=== PATIENT | female | born 1935 | race Caucasian/White ===

== ENCOUNTER 2018-08-30 01:48 | Outpatient (CLI) | payer MEDICARE, SELFPAY ==
[2018-08-30 11:07] LABS: Anion Gap 6.6 mmol/L (3-11); BUN 14 mg/dL (7-18); CO2 30.4 mmol/L (21.0-32.0); CREATININE 0.93 mg/dL (0.55-1.02); Calcium 8.9 mg/dL (8.5-10.1); Chloride 105 mmol/L (98-107); Cholesterol 219 mg/dL (50-200); Estimated GFR 58.01 (mL/min/1.73m2); Glucose 111 mg/dL (70-100); HDL Cholesterol 52 mg/dL (40-60); LDL CHOLESTEROL 142 mg/dL (<100); Potassium 4.3 mmol/L (3.5-5.1); Sodium 142 mmol/L (136-145); Triglyceride 98 mg/dL (30-150)
== END 2018-08-30 02:08 ==
PROVIDERS: PCP Emergency Medicine; Visit Provider Emergency Medicine
DX: I10 Essential (primary) hypertension (principal)
CPT/HCPCS: 36415; 80048; 80061; 83721

== ENCOUNTER 2018-09-20 02:00 | Outpatient (CLI) | payer MEDICARE, SELFPAY ==
[2018-09-20 12:02] LABS: Hemoglobin A1C 6.3 % (4.5-6.2)
[2018-09-20 12:14] LABS: ALT 37 U/L (12-78); Creatine Kinase 216 U/L (26-192); Glucose 114 mg/dL (70-100); TSH 3.74 uIU/mL (0.358-3.74)
[2018-09-20 12:25] LABS: Cholesterol 156 mg/dL (50-200); HDL Cholesterol 48 mg/dL (40-60); LDL CHOLESTEROL 95 mg/dL (<100); Triglyceride 68 mg/dL (30-150)
[2018-09-21 16:04] LABS: Lipoprotein (a) 29 mg/dL (<=30)
== END 2018-09-20 02:20 ==
PROVIDERS: Internal Medicine; PCP Emergency Medicine; Visit Provider Emergency Medicine
DX: E78.5 Hyperlipidemia, unspecified (principal); R73.9 Hyperglycemia, unspecified; I25.10 Atherosclerotic heart disease of native coronary artery without angina pectoris
CPT/HCPCS: 36415; 80061; 82550; 82947; 83695; 83721; 83036; 84443; 84460

== ENCOUNTER 2018-10-11 00:12 | Outpatient (CLI) | payer MEDICARE, SELFPAY ==
--- NOTE | 2018-10-11 06:39 | MERGEMPI_ITS ---
*[facility]* *[facility]* [address] [place] [address] Myocardial Perfusion Imaging - SPECT Jose Luis protocol Date of study: 10/11/2018 *PATIENT PRESENTATION* Height: 154.9cm (61in) Blood Pressure: Weight: 75kg (165lb) BSA: 1.83m^2 Referring physician: Jatin Wagner Ordering physician: Jacob Foley Impressions: Study suggests small myocardial infarction, in the territory of the left circumflex coronary or first diagonal artery. Summary: 1. Myocardial perfusion imaging: There is a small sized, mildly intense, predominantly fixed defect involving the basal and mid lateral wall(s). This suggests small myocardial infarction in the distribution of the left circumflex coronary or first diagonal artery. 2. The calculated left ventricular ejection fraction after stress: 59%. LV global systolic function is normal. No left ventricular regional motion abnormality. 3. Stress ECG conclusions: The stress ECG is negative. 4. Stress: The target heart rate was achieved. Exercise capacity is average for age. 5. Baseline ECG: Normal sinus rhythm with left anterior fascicular block. 6. Treadmill exercise testing was performed using the Jose Luis protocol. The patient exercised for 4 min 32 sec, to protocol stage 2, to a maximal work rate of 6.5mets. Exercise was terminated due to dyspnea. Recommendations: Medical management is recommended. Indication: R06.09. History: REASON FOR VISIT: PT WITH A HISTORY OF QUADRUPLE BIPASS SURGURY 3 YEARS PRIOR (PER PT REPORT) IS HERE FOR DYSPNEA ON EXERTION. PT DENIES ANY CHEST PAIN. PMH: Asthma. Risk factors: Hypertension. Obesity. Dyslipidemia. Cholesterol: 196mg/dl. HDL: 48mg/dl. LDL: 95mg/dl. Triglycerides: 68mg/dl. ALLERGIES: SULFA MEDICATIONS: ADVAIR DISKUS 1 PUFF TWICE A DAY. AMLODIPINE 10 MG DAILY. ASPIRIN 81 MG DAILY. EZETIMIBE 10 MG DAILY. GARLIC 1-6 DAILY. LOSARTAN 150 MG DAILY. PROAIR HFA 1-2 PUFFS PRN. Imaging Technique: Protocol: Jose Luis protocol. Acquisition: Gated SPECT; 1 day - rest/stress. The patient was imaged in the supine position. Attenuation correction used. Isotope administration: - Rest. Tc[99m]-sestamibi. Dose: 10.1mCi. Injection time: 09:00 AM. Injection to stress time: 00:45. - Stress. Tc[99m]-sestamibi. Dose: 31mCi. Injection time: 11:10 AM. 1-2 min before end of exercise Baseline ECG: SINUS RHYTHM. HR 67 BPM. LEFT ANTERIOR FASCICULAR BLOCK. FLAT T-WAVE IN V6. Normal sinus rhythm with left anterior fascicular block. Stress protocol: + +---+ + !Stage !HR !BP (mmHg) ! + +---+ + !Baseline supine !67 !140/80 (100)! + +---+ + !Baseline standing !62 !120/80 (93) ! + +---+ + !Stage I; 1.7mph, 10degrees; 3 min!104!150/80 (103)! + +---+ + !Peak stress !124! ! + +---+ + !Recovery; 1 min !94 !190/84 (119)! + +---+ + !Recovery; 3 min !82 !180/82 (115)! + +---+ + !Recovery; 9 min !79 !160/82 (108)! + +---+ + !Recovery; 12 min !76 !160/82 (108)! + +---+ + * Stress results: Maximal heart rate during stress was 124bpm (89% of maximal predicted heart rate). The maximal predicted heart rate was 140bpm. The target heart rate was achieved. The rate-pressure product for the peak heart rate and blood pressure was 17805sr Hg/min. Exercise capacity is average for age. Stress ECG: TREADMILL PORTION OF STRESS TEST ENDED IN 4 MINUTES & 33 SECONDS DUE TO SHORTNESS OF BREATH. NORMAL HEART RATE AND BLOOD PRESSURE RESPONSE TO EXERCISE MAX HR = 124 % OF TARGET = 88 NO ECTOPY APPROXIMATE METS ACHIEVED = 6.49 NO ANGINA NO SIGNIFICANT ST SEGMENT CHANGES AVERAGE FUNCTIONAL CAPACITY FOR EXERCISE. The stress ECG is negative. Myocardial perfusion: Imaging information: gated. Left ventricular size is normal. There is a small sized, mildly intense, predominantly fixed defect involving the basal and mid lateral wall(s). This suggests small myocardial infarction in the distribution of the left circumflex coronary or first diagonal artery. Ventricular Function (Wall Motion): The calculated left ventricular ejection fraction after stress: 59%. LV global systolic function is normal. No left ventricular regional motion abnormality. Study data: Jatin Wagner MD supervised and was readily available during the procedure. This study was interpreted by [facility]. Study status: Routine. Consent: The risks, benefits, and alternatives to the procedure were explained to the patient and informed consent was obtained. Procedure: Initial setup. A baseline ECG was recorded. Surface ECG leads and manual cuff blood pressure measurements were monitored. Heart sounds: Normal. Lung sounds: Normal. Treadmill exercise testing was performed using the Jose Luis protocol. The patient exercised for 4 min 32 sec, to protocol stage 2, to a maximal work rate of 6.5mets. Exercise was terminated due to dyspnea. Study completion: All catheters inserted during the procedure were removed. The patient tolerated the procedure well and was discharged from the lab. Discharge: The patient left the laboratory in stable condition. Birthdate: Patient birthdate: 1935. Sex: Gender: female. Study date: Study date: 10/11/2018. Study time: 00:01 AM. Signature Documentation: - The imaging portion of this study was interpreted by [facility] Jatin Wagner MD. - The Stress ECG portion of this study was interpreted by Jatin Wagner MD. Electronically signed by Jatin Wagner 10/11/2018 13:02
== END 2018-10-11 00:32 ==
PROVIDERS: PCP Emergency Medicine; Visit Provider Emergency Medicine
DX: I25.810 Atherosclerosis of coronary artery bypass graft(s) without angina pectoris; I25.2 Old myocardial infarction; I10 Essential (primary) hypertension; E78.5 Hyperlipidemia, unspecified; Z95.1 Presence of aortocoronary bypass graft
CPT/HCPCS: 78452; 93016; 93018; 93017

== ENCOUNTER 2018-11-29 14:16 | Outpatient (CLI) | payer MEDICARE, SELFPAY ==
[2018-11-29 15:18] LABS: Anion Gap 8.6 mmol/L (3-11); BUN 21 mg/dL (7-18); CO2 30.4 mmol/L (21.0-32.0); CREATININE 1.03 mg/dL (0.55-1.02); Calcium 9.1 mg/dL (8.5-10.1); Chloride 103 mmol/L (98-107); Estimated GFR 51.56 (mL/min/1.73m2); Glucose 134 mg/dL (70-100); Potassium 4.4 mmol/L (3.5-5.1); Sodium 142 mmol/L (136-145)
== END 2018-11-29 14:36 ==
PROVIDERS: PCP Emergency Medicine; Visit Provider Nurse Practitioner Family
DX: I10 Essential (primary) hypertension (principal)
CPT/HCPCS: 36415; 80048

== ENCOUNTER 2018-12-19 00:31 | Outpatient (CLI) | payer MEDICARE, SELFPAY ==
--- NOTE | 2018-12-19 09:05 | MERGE_ITS ---
*[facility]* *[facility]* [address] [place] [address] Date of study: 12/19/2018 Transthoracic Echocardiography M-mode, complete 2D, complete spectral Doppler, and color Doppler *STUDY CONCLUSIONS* Summary: 1. Left ventricle: The cavity size was normal. There was moderate asymmetric hypertrophy of the septum. Systolic function was normal. The estimated ejection fraction was 60-65%. There was no dynamic obstruction. Wall motion was normal; there were no regional wall motion abnormalities. Findings consistent with diastolic dysfunction. Doppler parameters are consistent with high ventricular filling pressure. 2. Aortic valve: Trileaflet; mildly thickened, mildly calcified leaflets. There was mild regurgitation. 3. Left atrium: The atrium was mildly dilated. 4. Right ventricle: The cavity size was normal. Wall thickness was normal. Systolic function was normal. *PATIENT PRESENTATION* Height: 157.5cm ((62in) ) S/D Pressure: 151 / 61 Weight: 120.2kg ((264.4lb) ) BSA: 2.37m^2 Test start time: 09:10 AM. Test stop time: 10:00 AM. REFERRING Jacob Foley PERFORMING Unknown PERFORMING [facility] STUFFED CASING TIER RT Miguelangel Tejada)(CT), CS CONSULTING Radha Barron ORDERING Radha Barron REFERRING Radha Barron *PROCEDURE DATA* Procedure information: The patient was identified by two identifiers. This study was interpreted by [facility]. Pertinent images and digital data are archived for permanent storage and are available for subsequent review. Comparison was made to the study of 1999. Study status: Routine. Transthoracic echocardiography. M-mode, complete 2D, complete spectral Doppler, and color Doppler. A Transthoracic Echocardiogram was performed. Scanning was performed from the parasternal, apical, subcostal, and suprasternal notch acoustic windows. Images were obtained using an [id number] cardiac ultrasound machine. Image quality was adequate. Study completion: The patient tolerated the procedure well. There were no complications. 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 *CARDIAC ANATOMY* Left ventricle: The cavity size was normal. There was moderate asymmetric hypertrophy of the septum. Systolic function was normal. The estimated ejection fraction was 60-65%. There was no dynamic obstruction. Wall motion was normal; there were no regional wall motion abnormalities. Findings consistent with diastolic dysfunction. Doppler parameters are consistent with high ventricular filling pressure. Aortic valve: Trileaflet; mildly thickened, mildly calcified leaflets. Mobility was not restricted. Doppler: Transvalvular velocity was within the normal range. There was no stenosis. There was mild regurgitation. VTI ratio of LVOT to aortic valve: 0.61. Valve area (VTI): 1.7cm^2. Indexed valve area (VTI): 0.7cm^2/m^2. Peak velocity ratio of LVOT to aortic valve: 0.63. Valve area (Vmax): 1.7cm^2. Indexed valve area (Vmax): 0.7cm^2/m^2. Mean velocity ratio of LVOT to aortic valve: 0.62. Valve area (Vmean): 1.7cm^2. Indexed valve area (Vmean): 0.7cm^2/m^2. Mean gradient (S): 7.1mm Hg. Peak gradient (S): 11.7mm Hg. Aorta: Aortic root: The aortic root was normal in size. Ascending aorta: The ascending aorta was normal in size. Mitral valve: Mildly thickened leaflets. Mobility was not restricted. Doppler: Transvalvular velocity was within the normal range. There was no evidence for stenosis. There was no significant regurgitation. Valve area by pressure half-time: 2.7cm^2. Indexed valve area by pressure half-time: 1.1cm^2/m^2. Peak gradient (D): 4.8mm Hg. Left atrium: The atrium was mildly dilated. Right ventricle: The cavity size was normal. Wall thickness was normal. Systolic function was normal. Pulmonic valve: Doppler: Transvalvular velocity was within the normal range. There was no evidence for stenosis. There was no significant regurgitation. Peak gradient (S): 2.3mm Hg. Tricuspid valve: Structurally normal valve. Doppler: Transvalvular velocity was within the normal range. There was no evidence for stenosis. There was trivial regurgitation. Pulmonary artery: Pulmonary systolic pressure was within the normal range, in the range of 30mm Hg to 35mm Hg. Right atrium: The atrium was normal in size. Pericardium: There was no pericardial effusion. Systemic veins: Inferior vena cava: Well visualized. The vessel was patent and normal in size. The respirophasic diameter changes were in the normal range (greater than or equal to 50%). Baseline ECG: Bradycardia. Measurements Left ventricle Value Reference LV ID, ED, PLAX 4.5 cm 3.5 - 6.0 LV ID, ES, PLAX 2.9 cm 2.1 - 4.0 LV PW thickness, ED, PLAX 1.1 cm LV end-diastolic volume, 1-p A2C 51 ml LV ejection fraction, 1-p A2C 64 % LV end-diastolic volume, 1-p A4C 62 ml LV ejection fraction, 1-p A4C 59 % LV e', lateral 0.049 m/sec LV E/e', lateral 23 LV e', medial 0.055 m/sec LV E/e', medial 20 LV e', average 0.052 m/sec LV E/e', average 21 Ventricular septum Value Reference IVS thickness, ED, PLAX 1.6 cm LVOT Value Reference LVOT ID, A-P 1.9 cm LVOT area 2.7 cm^2 LVOT peak velocity, S 1.08 m/sec LVOT mean velocity, S 0.8 m/sec LVOT VTI, S 26.9 cm LVOT peak gradient, S 4.6 mm Hg LVOT mean gradient, S 2.8 mm Hg Stroke volume (SV), LVOT DP 73 ml Stroke index (SV/bsa), LVOT DP 31 ml/m^2 Aortic valve Value Reference Aortic valve peak velocity, S 1.7 m/sec Aortic valve mean velocity, S 1.29 m/sec Aortic valve VTI, S 44.0 cm Aortic mean gradient, S 7.1 mm Hg Aortic peak gradient, S 11.7 mm Hg VTI ratio, LVOT/AV 0.61 Aortic valve area, VTI 1.7 cm^2 Velocity ratio, peak, LVOT/AV 0.63 Aortic valve area, peak velocity 1.7 cm^2 Velocity ratio, mean, LVOT/AV 0.62 Aortic valve area, mean velocity 1.7 cm^2 Aortic valve area/bsa, mean velocity 0.7 cm^2/m^2 Aorta Value Reference Aortic root ID, ED 3.2 cm Ascending aorta ID, A-P, S 3.5 cm Left atrium Value Reference LA ID, A-P, ES 4.2 cm LA ID/bsa, A-P 1.8 cm/m^2 <=2.2 LA area, ES, A4C 21 cm^2 8.8 - 23.4 LA area, ES, A2C 20 cm^2 LA volume/bsa, ES, 1-p A4C 32 ml/m^2 LA volume, ES, 2-p 63 ml LA volume/bsa, ES, 2-p 26 ml/m^2 LA/aortic root ratio 1.28 Mitral valve Value Reference Mitral E-wave peak velocity 1.1 m/sec Mitral A-wave peak velocity 1.19 m/sec Mitral deceleration time (H) 282 ms 150 - 230 Mitral pressure half-time 82 ms Mitral peak gradient, D 4.8 mm Hg Mitral E/A ratio, peak 0.92 Mitral valve area, PHT, DP 2.7 cm^2 Pulmonary veins Value Reference Pulmonary vein peak velocity, S 0.49 m/sec Pulmonary vein peak velocity, D 0.3 m/sec Pulmonary vein velocity ratio, peak, 1.62 S/D Pulmonary vein A-wave reversal peak 0.24 m/sec velocity Tricuspid valve Value Reference Tricuspid regurg peak velocity 2.6 m/sec Tricuspid peak RV-RA gradient 26.9 mm Hg Right atrium Value Reference RA area, ES, A4C (H) 20.1 cm^2 8.3 - 19.5 Pulmonic valve Value Reference Pulmonic peak gradient, S 2.3 mm Hg Legend: (L) and (H) pavan values outside specified reference range. I have personally reviewed the images and have reviewed and edited the reported findings. Electronically signed by Jatin Wagner 12/19/2018 13:36
== END 2018-12-19 00:51 ==
PROVIDERS: PCP Emergency Medicine; Visit Provider Nurse Practitioner Family
DX: R01.1 Cardiac murmur, unspecified (principal); I50.1 Left ventricular failure, unspecified; I25.10 Atherosclerotic heart disease of native coronary artery without angina pectoris; I35.1 Nonrheumatic aortic (valve) insufficiency; I10 Essential (primary) hypertension
CPT/HCPCS: 93306

== ENCOUNTER 2018-12-20 09:28 | Outpatient (CLI) | payer MEDICARE, SELFPAY ==
[2018-12-20 11:25] LABS: Glucose 113 mg/dL (70-100)
[2018-12-20 11:32] LABS: Cholesterol 168 mg/dL (50-200); HDL Cholesterol 56 mg/dL (40-60); LDL CHOLESTEROL 96 mg/dL (<100); Triglyceride 75 mg/dL (30-150)
== END 2018-12-20 09:48 ==
PROVIDERS: PCP Emergency Medicine; Visit Provider Internal Medicine
DX: I25.10 Atherosclerotic heart disease of native coronary artery without angina pectoris (principal); E78.5 Hyperlipidemia, unspecified; R73.9 Hyperglycemia, unspecified
CPT/HCPCS: 36415; 80061; 82947; 83721

== ENCOUNTER 2019-03-15 01:19 | Outpatient (CLI) | payer MEDICARE, SELFPAY ==
[2019-03-15 11:13] LABS: Hemoglobin A1C 6.3 % (4.5-6.2)
[2019-03-15 13:46] LABS: Anion Gap 11.4 mmol/L (3-11); BUN 20 mg/dL (7-18); CO2 26.6 mmol/L (21.0-32.0); CREATININE 0.89 mg/dL (0.55-1.02); Chloride 102 mmol/L (98-107); Glucose 105 mg/dL (70-100); Sodium 140 mmol/L (136-145)
[2019-03-15 13:55] LABS: Calculated LDL 82 mg/dL; Cholesterol 148 mg/dL (50-200); HDL Cholesterol 50 mg/dL (40-60); Triglyceride 80 mg/dL (30-150)
== END 2019-03-15 01:39 ==
PROVIDERS: Internal Medicine Cardiovascular Disease; PCP Emergency Medicine; Visit Provider Emergency Medicine
DX: E11.9 Type 2 diabetes mellitus without complications (principal); I10 Essential (primary) hypertension
CPT/HCPCS: 36415; 80048; 80061; 83721; 83036

== ENCOUNTER 2019-07-17 14:17 | Outpatient (CLI) | payer MEDICARE, SELFPAY ==
--- NOTE | 2019-07-17 14:01 | DI.RAD_ITS ---
EXAM: XR HIP LT COMPLETE AP PELVIS INDICATION: left hip pain,m25.552. COMPARISON: No exams were available for comparison TECHNIQUE: 2D digital imaging was performed. FINDINGS: There is mild periarticular spurring and subchondral sclerosis in the left acetabulum. There are deg enerative changes seen at the sacroiliac joints. Mild degenerative changes are seen in the right hip . Osteitis of the pubic bone is noted. There are marked degenerative changes seen in the lumbosacra l spine. No acute fracture or dislocation is present. Vascular clip is seen in the right inguinal r egion. The soft tissues are otherwise unremarkable. IMPRESSION: Degenerative changes in the hips and lumbar spine.
== END 2019-07-17 14:37 ==
PROVIDERS: PCP Emergency Medicine; Visit Provider Emergency Medicine
DX: M25.552 Pain in left hip (principal); M16.0 Bilateral primary osteoarthritis of hip; M47.816 Spondylosis without myelopathy or radiculopathy, lumbar region
CPT/HCPCS: 73502

== ENCOUNTER 2019-07-25 08:16 | Outpatient (CLI) | payer MEDICARE, SELFPAY ==
[2019-07-25 11:13] LABS: Calculated LDL 52 mg/dL; Cholesterol 121 mg/dL (<200); HDL Cholesterol 56 mg/dL (40-60); Triglyceride 69 mg/dL (<150)
== END 2019-07-25 08:36 ==
PROVIDERS: PCP Emergency Medicine; Visit Provider Internal Medicine
DX: E78.5 Hyperlipidemia, unspecified (principal); I25.10 Atherosclerotic heart disease of native coronary artery without angina pectoris
CPT/HCPCS: 36415; 80061

== ENCOUNTER → 2020-01-25 10:04 | Outpatient (BNVA) | payer MEDICARE, SELFPAY | PROVIDERS: PCP Emergency Medicine; Referring Provider Emergency Medicine; Visit Provider Surgery | DX: L98.8 Other specified disorders of the skin and subcutaneous tissue (principal); I10 Essential (primary) hypertension | CPT/HCPCS: 99202 ==

== ENCOUNTER → 2020-02-01 13:04 | Outpatient (BNVA) | payer MEDICARE, SELFPAY | PROVIDERS: PCP Emergency Medicine; Referring Provider Emergency Medicine; Visit Provider Surgery | DX: D04.61 Carcinoma in situ of skin of right upper limb, including shoulder (principal); E78.5 Hyperlipidemia, unspecified | CPT/HCPCS: 11602; 96372 ==

== ENCOUNTER 2020-02-01 13:58 | Outpatient (REF) | payer MEDICARE, SELFPAY ==
--- NOTE | 2020-02-01 13:30 | SKI_PTH ---
PATIENT: Ginger Amador LOC: JU U#:[id number] AGE/SX: 84/F ROOM: RE02/01/[address]: Rebecca Rojas MD : 1935 BED: DIS: 02/01/2020 SPEC #: [id number] RECD: 02/01/20 14:40 STATUS: MARIE RELito #: [id number] KEVIN: 02/01/20 13:[address]: Rebecca Rojas DEPT: Surgical Specimen RECD BY: Debora Mayer ENTERED: 02/01/20 14:40 SP TYPE: LUIS FERNANDO OT DR: Jacob Foley DO Tissues: 1 - SKIN BIOPSY(SHAVE/PUNCH) Procedures: SKIN LEVEL 4 Comments: [id number]
== END 2020-02-01 14:18 ==
LOC: LBN 13:58
PROVIDERS: PCP Emergency Medicine; Visit Provider Surgery
DX: D04.61 Carcinoma in situ of skin of right upper limb, including shoulder (principal)
CPT/HCPCS: 88305

== ENCOUNTER → 2020-02-29 10:35 | Outpatient (BNVA) | payer MEDICARE, SELFPAY | PROVIDERS: PCP Emergency Medicine; Referring Provider Emergency Medicine; Visit Provider Surgery | DX: L82.1 Other seborrheic keratosis (principal); R23.4 Changes in skin texture; Z85.89 Personal history of malignant neoplasm of other organs and systems; I10 Essential (primary) hypertension; D04.61 Carcinoma in situ of skin of right upper limb, including shoulder | CPT/HCPCS: 11403; 11603 ==

== ENCOUNTER 2020-02-29 11:53 | Outpatient (REF) | payer MEDICARE, SELFPAY ==
--- NOTE | 2020-02-29 11:00 | SKI_PTH ---
PATIENT: Ginger Amador LOC: JU U#:[id number] AGE/SX: 84/F ROOM: RE02/29/[address]: Rebecca Rojas MD : 1935 BED: DIS: 02/29/2020 SPEC #: [id number] RECD: 02/29/20 13:05 STATUS: MARIE REQ #: [id number] KEVIN: 02/29/20 11:[address]: Rebecca Rojas DEPT: Surgical Specimen RECD BY: Debora Mayer ENTERED: 02/29/20 13:10 SP TYPE: LUIS FERNANDO LAGUNAS DR: Jacob Foley DO Tissues: 1 - SKIN BIOPSY(SHAVE/PUNCH) 2 - SKIN BIOPSY(SHAVE/PUNCH) Procedures: SKIN LEVEL 4 Comments: [id number]
== END 2020-02-29 12:13 ==
LOC: LBN 11:53
PROVIDERS: PCP Emergency Medicine; Visit Provider Surgery
DX: L82.1 Other seborrheic keratosis (principal)
CPT/HCPCS: 88305

== ENCOUNTER → 2020-03-07 11:54 | Outpatient (BNVA) | payer MEDICARE, SELFPAY | PROVIDERS: PCP Emergency Medicine; Referring Provider Emergency Medicine; Visit Provider Surgery | DX: Z48.817 Encounter for surgical aftercare following surgery on the skin and subcutaneous tissue (principal); L82.1 Other seborrheic keratosis | CPT/HCPCS: 99212 ==

== ENCOUNTER 2020-03-20 02:21 | Outpatient (CLI) | payer MEDICARE, SELFPAY ==
[2020-03-20 09:43] LABS: Glucose 129 mg/dL (74-106)
[2020-03-20 10:19] LABS: Hemoglobin A1C 6.2 % (3.8-5.6)
== END 2020-03-20 02:41 ==
PROVIDERS: PCP Emergency Medicine; Visit Provider Internal Medicine
DX: R73.9 Hyperglycemia, unspecified (principal)
CPT/HCPCS: 36415; 82947; 83036

== ENCOUNTER 2020-03-25 04:30 | Outpatient (CLI) | payer MEDICARE, SELFPAY ==
[2020-03-25 14:20] LABS: Calculated LDL 54 mg/dL (<100); Cholesterol 125 mg/dL (<200); HDL Cholesterol 43 mg/dL (40-60); Triglyceride 144 mg/dL (<150)
== END 2020-03-25 04:50 ==
PROVIDERS: PCP Emergency Medicine; Visit Provider Internal Medicine
DX: E78.5 Hyperlipidemia, unspecified (principal)
CPT/HCPCS: 36415; 80061

== ENCOUNTER 2020-07-01 15:19 | Outpatient (REF) | payer MEDICARE, SELFPAY ==
[2020-07-01 21:00] LABS: Anion Gap 7.7 mmol/L (3-11); BUN 20 mg/dL (7-18); CO2 28.3 mmol/L (21.0-32.0); CREATININE 1.03 mg/dL (0.55-1.02); Calcium 9.2 mg/dL (8.5-10.1); Chloride 106 mmol/L (98-107); Glucose 137 mg/dL (74-106); Potassium 4.3 mmol/L (3.5-5.1); Sodium 142 mmol/L (136-145)
== END 2020-07-01 15:39 ==
LOC: NCHCN 15:19
PROVIDERS: PCP Emergency Medicine; Visit Provider Emergency Medicine
DX: C44.42 Squamous cell carcinoma of skin of scalp and neck (principal); I10 Essential (primary) hypertension
CPT/HCPCS: 80048

== ENCOUNTER → 2020-07-25 09:26 | Outpatient (BNVA) | payer MEDICARE, SELFPAY | PROVIDERS: PCP Emergency Medicine; Referring Provider Emergency Medicine; Visit Provider Physical Therapy Assistant | DX: C44.42 Squamous cell carcinoma of skin of scalp and neck (principal); I10 Essential (primary) hypertension | CPT/HCPCS: 99212 ==

== ENCOUNTER → 2020-08-14 13:10 | Outpatient (BNVA) | payer MEDICARE, SELFPAY | PROVIDERS: PCP Emergency Medicine; Referring Provider Emergency Medicine; Visit Provider Physical Therapy Assistant | DX: L98.8 Other specified disorders of the skin and subcutaneous tissue (principal); Z85.828 Personal history of other malignant neoplasm of skin | CPT/HCPCS: 99212 ==

== ENCOUNTER 2020-09-17 03:47 | Outpatient (CLI) | payer MEDICARE, SELFPAY ==
[2020-09-17 10:35] LABS: Calculated LDL 87 mg/dL (<100); Cholesterol 157 mg/dL (<200); Glucose 108 mg/dL (74-106); HDL Cholesterol 55 mg/dL (40-60); Triglyceride 77 mg/dL (<150)
[2020-09-17 10:38] LABS: Hemoglobin A1C 6.2 % (<5.7)
== END 2020-09-17 03:48 | disposition home or self-care (01) ==
LOC: LBO 03:47
PROVIDERS: PCP Emergency Medicine; Visit Provider Internal Medicine
DX: E78.5 Hyperlipidemia, unspecified (principal); R73.9 Hyperglycemia, unspecified
CPT/HCPCS: 36415; 80061; 82947; 83036

== ENCOUNTER 2020-11-18 10:14 | Outpatient (CLI) | payer MEDICARE, SELFPAY ==
--- NOTE | 2020-11-18 09:30 | DI.RAD_ITS ---
EXAM: XR SHOULDER RT COMPLETE 2+V CLINICAL HISTORY: right shoulder pain TECHNIQUE: COMPARISON: No exams were available for comparison FINDINGS: Two views were obtained. The cartilaginous joint space of the glenohumeral joint is grossly well kb ntained. There are changes of patchy demineralization of the bones of the shoulder. There are mild marginal osteophytes of the glenoid and humeral head. There is a very prominent inferior osteophyte of the acromion which may impinge the superior rotator cuff. Moderate hypertrophic changes noted at the AC joint. IMPRESSION: RADIATION DOSE DELIVERED: Total DLP
== END 2020-11-18 10:15 | disposition home or self-care (01) ==
LOC: DIORS 10:14
PROVIDERS: PCP Emergency Medicine; Referring Provider Emergency Medicine; Visit Provider Student in an Organized Health Care Education/Training Program
DX: M25.511 Pain in right shoulder (principal); M25.711 Osteophyte, right shoulder
CPT/HCPCS: 20610; 99203; 99213; 73030; J1030

== ENCOUNTER → 2021-01-28 10:34 | Outpatient (BNVA) | payer MEDICARE, SELFPAY | PROVIDERS: PCP Emergency Medicine; Referring Provider Emergency Medicine; Visit Provider Student in an Organized Health Care Education/Training Program | DX: M75.81 Other shoulder lesions, right shoulder (principal); M75.21 Bicipital tendinitis, right shoulder; M75.51 Bursitis of right shoulder; M75.41 Impingement syndrome of right shoulder | CPT/HCPCS: 99213 ==

== ENCOUNTER 2021-08-17 02:39 | Outpatient (CLI) | payer MEDICARE, SELFPAY | END 2021-08-17 02:40 | disposition home or self-care (01) | LOC: LBO 02:39 | PROVIDERS: PCP Emergency Medicine; Visit Provider Emergency Medicine ==

== ENCOUNTER 2021-08-19 03:55 | Outpatient (CLI) | payer MEDICARE, SELFPAY ==
[2021-08-19 08:37] LABS: Abs Immature Grans 0.03 10^3/uL (0.0-0.06); Absolute Basophil Count 0.03 10^3/uL (0.0-0.2); Absolute Eosinophil Count 0.22 10^3/uL (0.0-0.7); Absolute Lymphocyte Count 1.66 10^3/uL (1.2-3.4); Absolute Monocyte Count 0.48 10^3/uL (0.1-0.8); Absolute Neutrophil Count 4.98 10^3/uL (1.2-6.7); Basophils % 0.4; HCT 43.6 % (36.0-46.0); HGB 13.7 g/dL (11.2-15.7); Immature Grans % 0.4; Lymphocytes % 22.4; MCH 26.7 pg (27.0-33.0); MCHC 31.4 % (32.0-36.0); MPV 9.8 fL (8.0-11.0); Monocytes % 6.5; Neutrophils % 67.3; Nucleated RBC 0 %; Platelet Count 241 10^3/uL (130-400); RBC 5.13 10^6/uL (3.93-5.22); RDW 14.6 % (11.7-14.6); RDW-SD 45.4 fL
[2021-08-19 10:28] LABS: Iron 73 ug/dL (50-170); Total Iron Binding Capacity 301 ug/dL (250-450); Transferrin Sat 24 % (15-50)
[2021-08-19 11:00] LABS: ALT 32 U/L (14-59); AST 20 U/L (15-37); Albumin 3.8 g/dL (3.4-5.0); Alkaline Phosphatase 84 U/L (46-116); Anion Gap 8.3 mmol/L (3-11); BUN 17 mg/dL (7-18); Bilirubin, Total 0.4 mg/dL (0.2-1.0); CO2 30.7 mmol/L (21.0-32.0); CREATININE 0.9 mg/dL (0.55-1.02); Calcium 8.8 mg/dL (8.5-10.1); Calculated LDL 69 mg/dL (<100); Chloride 106 mmol/L (98-107); Cholesterol 137 mg/dL (<200); Glucose 109 mg/dL (74-106); HDL Cholesterol 55 mg/dL (40-60); Potassium 4.1 mmol/L (3.5-5.1); Sodium 145 mmol/L (136-145); Total Protein 6.8 g/dL (6.4-8.2); Triglyceride 67 mg/dL (<150); Vitamin B12 374 pg/mL (193-986)
[2021-08-19 11:17] LABS: Creatine Kinase 192 U/L (26-192)
[2021-08-20 12:04] LABS: Albumin 60.6 % (55.8-66.1); Total Protein 6.8 g/dL (6.3-8.2)
[2021-08-27 16:08] LABS: IgG Asialo. GM1 Negative (Negative); IgG Disialo. GD1b Negative (Negative); IgG Monos. GM1 Negative (Negative); IgM Asialo. GM1 Negative (Negative); IgM Disialo. GD1b Negative (Negative); IgM Monos. GM1 Negative (Negative)
== END 2021-08-19 03:56 | disposition home or self-care (01) ==
LOC: LBO 03:55
PROVIDERS: PCP Emergency Medicine; Visit Provider Emergency Medicine
DX: R29.898 Other symptoms and signs involving the musculoskeletal system; I10 Essential (primary) hypertension; R63.4 Abnormal weight loss
CPT/HCPCS: 36415; 80048; 80053; 80061; 82550; 85027; 82607; 83520; 83540; 83550; 84165; 85025

== ENCOUNTER 2022-01-04 15:28 | Outpatient (CLI) | payer MEDICARE, SELFPAY ==
[2022-01-04 15:50] LABS: HGB 13.3 g/dL (11.2-15.7); MCH 26.5 pg (27.0-33.0); MCHC 31.7 % (32.0-36.0); MCV 84 fL (80-95); MPV 9.7 fL (8.0-11.0); Platelet Count 208 10^3/uL (130-400); RBC 5.01 10^6/uL (3.93-5.22); RDW 15.1 % (11.7-14.6); RDW-SD 46.3 fL; WBC 7.37 10^3/uL (4.4-10.8)
[2022-01-04 16:23] LABS: ESR 6 mm/hr (0-30)
[2022-01-04 17:05] LABS: Hemoglobin A1C 6.2 % (<5.7)
[2022-01-04 17:23] LABS: ALT 41 U/L (14-59); AST 27 U/L (15-37); Alkaline Phosphatase 92 U/L (46-116); Anion Gap 9.5 mmol/L (3-11); BUN 19 mg/dL (7-18); Bilirubin, Total 0.4 mg/dL (0.2-1.0); CO2 27.5 mmol/L (21.0-32.0); CREATININE 0.9 mg/dL (0.55-1.02); Calcium 8.9 mg/dL (8.5-10.1); Calculated LDL 45 mg/dL (<100); Chloride 106 mmol/L (98-107); Cholesterol 132 mg/dL (<200); Estimated GFR 59.65 (mL/min/1.73m2); Glucose 109 mg/dL (74-106); HDL Cholesterol 49 mg/dL (40-60); Potassium 3.9 mmol/L (3.5-5.1); Sodium 143 mmol/L (136-145); TSH (W/Ref FT4) 3.02 uIU/mL (0.36-3.74); Total Protein 6.7 g/dL (6.4-8.2); Triglyceride 191 mg/dL (<150)
[2022-01-04 17:44] LABS: C-Reactive Protein 0.15 mg/dL (0.0-0.3); Creatine Kinase 382 U/L (26-192)
[2022-01-04 19:05] LABS: Lab Add On Test DONE
== END 2022-01-04 15:29 | disposition home or self-care (01) ==
LOC: LBO 15:30
PROVIDERS: PCP Nurse Practitioner Family; Visit Provider Family Medicine
DX: I10 Essential (primary) hypertension; E78.5 Hyperlipidemia, unspecified; I25.10 Atherosclerotic heart disease of native coronary artery without angina pectoris; R73.03 Prediabetes; M79.18 Myalgia, other site
CPT/HCPCS: 36415; 80053; 80061; 82550; 85027; 85652; 83036; 84443; 86140

== ENCOUNTER 2022-01-20 09:20 | Outpatient (CLI) | payer MEDICARE, SELFPAY ==
--- NOTE | 2022-01-20 08:00 | DI.RAD_ITS ---
Exam(s) XR SHOULDER LT COMPLETE 2+V EXAM: XR SHOULDER LT COMPLETE 2+V CLINICAL HISTORY: L shoulder pain. TECHNIQUE: 2D digital imaging was performed. COMPARISON: No exams were available for comparison FINDINGS: Two views No evidence of fracture or dislocation. 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 Subacromial space is not diminished and does not contain calcificatio ns. Some degenerative change also noted in the AC joint. Sternotomy wires are noted. 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 DATA REPOSITORY: RADIATION DOSE DELIVERED:
== END 2022-01-20 09:21 | disposition home or self-care (01) ==
LOC: DIORS 09:20
PROVIDERS: PCP Nurse Practitioner Family; Referring Provider Nurse Practitioner Family; Visit Provider Physician Assistant
DX: M75.101 Unspecified rotator cuff tear or rupture of right shoulder, not specified as traumatic; M12.811 Other specific arthropathies, not elsewhere classified, right shoulder; M25.512 Pain in left shoulder
CPT/HCPCS: 20610; 99214; 73030; J1040

== ENCOUNTER 2022-05-31 03:38 | Outpatient (CLI) | payer MEDICARE, SELFPAY ==
[2022-05-31 13:55] LABS: Creatine Kinase 175 U/L (26-192)
[2022-05-31 13:56] LABS: Calculated LDL 69 mg/dL (<100); Cholesterol 143 mg/dL (<200); HDL Cholesterol 55 mg/dL (40-60); Triglyceride 97 mg/dL (<150)
== END 2022-05-31 03:39 | disposition home or self-care (01) ==
LOC: LBO 03:38
PROVIDERS: Internal Medicine; PCP Nurse Practitioner Family; Visit Provider Family Medicine
DX: M79.10 Myalgia, unspecified site (principal); E78.5 Hyperlipidemia, unspecified; I10 Essential (primary) hypertension; I25.10 Atherosclerotic heart disease of native coronary artery without angina pectoris; Z95.1 Presence of aortocoronary bypass graft
CPT/HCPCS: 36415; 80061; 82550

== ENCOUNTER 2022-06-03 16:39 | Emergency (ER) | payer MEDICARE, SELFPAY ==
[2022-06-03 16:51] VITALS: BP 252/96; PULSE 78; RESP 18; TEMP 35.9; O2SAT 98
--- NOTE | 2022-06-03 17:15 | RT.EKG_ITS ---
APPROVED REPORT Exam: Resting ECG Reason for Exam: weakness Patient Location: E HR:83 bpm ECG Measurements Heart Rate 83 AXIS WV 212 P 61 QRSd 107 QRS -67 QT 390 T 90 QTc 458 Conclusion Sinus rhythm. Borderline prolonged WV interval.. Probable left atrial enlargement Left anterior fascicular block..
--- NOTE | 2022-06-03 17:15 | DI.CT_ITS ---
Exam(s) CT HEAD CERVICAL SPINE WO EXAM: CT HEAD CERVICAL SPINE WO CLINICAL HISTORY: head trauma. TECHNIQUE: Imaging Protocol: Axial computed tomography images with coronal and sagittal reformatted images were created and reviewed COMPARISON: CT HEAD WITHOUT CONTRAST from 05/03/2016 FINDINGS: BRAIN: There is a prominent acute appearing hematoma in the scalp overlying the frontal sinuses and upper fo rehead region. No subjacent abnormality in the frontal sinuses and remainder of the sinuses are also also clear. There are no skull fractures nor fluid in the visualized paranasal sinuses. There is no evidence of intracranial hemorrhage, mass effect, or shift of midline structures. There are no extra-axial fluid collections. The ventricles are not enlarged or shifted and there is no blo od within the ventricular system nor within the basal cisterns. CERVICAL SPINE: There is no evidence of fracture nor listhesis. No significant prevertebral soft tissue swelling. Multilevel chronic-type disc space narrowing in the lower cervical spine but no fractures. Multilevel facet arthropathy. There is no significant facet joint malalignment. No significant osseous lesions evident. IMPRESSION: No acute intracranial findings on this noninfused CT scan of the brain.Large forehead scalp hematoma/ laceration. No evidence of cervical spine fracture, malalignment, nor acute compromise of the cervical spinal can al. Chronic degenerative changes in the cervical spine. RADIATION DOSE DELIVERED: 1,071.53mGy.cm Total DLP DATA REPOSITORY: All CT scans at this facility are submitted to the National Radiology Data Registry (NRDR) Dose Index Registry (DIR) with the [employer] ([employer]). RADIATION OPTIMIZATION: All CT scans at this facility use at least one of these dose optimization te chniques: automated exposure control; mA and/or kV adjustment per patient size (includes targeted exa ms where dose is matched to clinical indication); or iterative reconstruction.
[2022-06-03 18:42] LABS: Bilirubin Negative (Negative); Blood Trace-lysed (Negative); Clarity Clear (Clear); Glucose Negative (Negative); Ketones Trace mg/dL (Negative); Leukocyte Esterase Negative (Negative); Nitrite Negative (Negative); Specific Gravity 1.025 (1.005-1.025); Urobilinogen 0.2 EU/dL (Up TO 0.2)
[2022-06-03 18:53] LABS: Bacteria Few HPF (Negative); C & S Indicated? No/Sq. Contamination; Casts Negative LPF (Negative); Crystals Negative HPF (Negative); Epithelial Cells Moderate HPF (Negative); Mucus Negative (Negative); RBC 0-2 HPF (0-2)
[2022-06-03] MEDS: Acetaminophen 325 MG TAB 650 MG PO (19:00)
--- NOTE | 2022-06-03 19:06 | DI.VRAD_ITS ---
PROCEDURE INFORMATION: Exam: CT Head Without Contrast Exam date and time: 06/03/2022 6:49 PM Age: 86 years old Clinical indication: Injury; Fall; Blunt trauma without LOC; Injury date: 06/03/22 TECHNIQUE: Imaging protocol: Computed tomography of the head without contrast. Radiation optimization: All CT scans at this facility use at least one of these dose optimization techniques: automated exposure control; mA and/or kV adjustment per patient size (includes targeted exams where dose is matched to clinical indication); or iterative reconstruction. COMPARISON: CT HEAD WITHOUT CONTRAST 05/03/2016 1:49 PM FINDINGS: Brain: No acute intracranial hemorrhage. Diffuse cerebral atrophy. No mass effect or midline shift. No extra-axial fluid collection. Cerebral ventricles: Ventricular prominence in this patient with diffuse cerebral atrophy. Paranasal sinuses: No significant disease of the paranasal sinuses. Mastoid air cells: No mastoiditis. Orbital cavities: Prior cataract surgery. Bones/joints: No acute fracture. Soft tissues: Frontal scalp soft tissue edema / hematoma with right frontal scalp laceration. IMPRESSION: 1. No acute fracture. 2. Frontal scalp soft tissue edema / hematoma with right frontal scalp laceration. 3. No acute intracranial findings. PROCEDURE INFORMATION: Exam: CT Cervical Spine Without Contrast Exam date and time: 06/03/2022 6:49 PM Age: 86 years old Clinical indication: Injury; Fall; Blunt trauma without LOC; Injury date: 06/03/22 TECHNIQUE: Imaging protocol: Computed tomography of the cervical spine without contrast. Radiation optimization: All CT scans at this facility use at least one of these dose optimization techniques: automated exposure control; mA and/or kV adjustment per patient size (includes targeted exams where dose is matched to clinical indication); or iterative reconstruction. COMPARISON: CT HEAD WITHOUT CONTRAST 05/03/2016 1:49 PM FINDINGS: Bones/joints: No acute fracture. No subluxation. No significant disc protrusion. No severe spinal canal stenosis. Cervical spine multilevel degenerative / spondylitic changes with multilevel neural foraminal narrowing. Lungs: Lung apices are normal. Soft tissues: Unremarkable. IMPRESSION: No acute fracture or subluxation. Dictated and Authenticated by: Kai Koroma MD. Ordering:ZAID Cazares MD
[2022-06-03 19:29] LABS: Abs Immature Grans 0.03 10^3/uL (0.0-0.06); Absolute Basophil Count 0.03 10^3/uL (0.0-0.2); Absolute Eosinophil Count 0.09 10^3/uL (0.0-0.7); Absolute Lymphocyte Count 1.13 10^3/uL (1.2-3.4); Absolute Monocyte Count 0.41 10^3/uL (0.1-0.8); Absolute Neutrophil Count 9.57 10^3/uL (1.2-6.7); Basophils % 0.3; Eosinophils % 0.8; HCT 46.2 % (36.0-46.0); HGB 14.8 g/dL (11.2-15.7); Immature Grans % 0.3; MCH 26.8 pg (27.0-33.0); MCV 84 fL (80-95); MPV 9.9 fL (8.0-11.0); Monocytes % 3.6; Platelet Count 198 10^3/uL (130-400); RBC 5.53 10^6/uL (3.93-5.22); RDW-SD 43.1 fL; WBC 11.26 10^3/uL (4.4-10.8)
[2022-06-03 19:54] LABS: ALT 29 U/L (14-59); AST 27 U/L (15-37); Albumin 4.2 g/dL (3.4-5.0); Alkaline Phosphatase 84 U/L (46-116); Anion Gap 10.2 mmol/L (3-11); BUN 15 mg/dL (7-18); Bilirubin, Total 0.5 mg/dL (0.2-1.0); CO2 27.8 mmol/L (21.0-32.0); CREATININE 0.9 mg/dL (0.55-1.02); Calcium 9.4 mg/dL (8.5-10.1); Chloride 104 mmol/L (98-107); Estimated GFR 63.04 (mL/min/1.73m2); Glucose 119 mg/dL (74-106); Potassium 3.6 mmol/L (3.5-5.1); Sodium 142 mmol/L (136-145); Total Protein 7.7 g/dL (6.4-8.2)
[2022-06-03 20:06] LABS: Troponin I 98 ng/L (<or=60)
--- NOTE | 2022-06-03 20:30 | DI.RAD_ITS ---
Exam(s) XR PORTABLE CHEST AP EXAM: XR PORTABLE CHEST AP CLINICAL HISTORY: chest pain, elevated trop. TECHNIQUE: 2D digital imaging was performed. COMPARISON: CR CHEST 2 VIEWS PA,LAT from 09/26/2015 FINDINGS: Single AP portable view. Sternotomy wires and evidence of CABG again noted. Heart size is upper normal. The mediastinum is not widened. Lungs are clear. No infiltrates nor obvious pleural effusions. No evidence of pulmonary edema. IMPRESSION: No acute pulmonary findings on this single AP portable view of the chest. Sternotomy. CABG. DATA REPOSITORY: RADIATION DOSE DELIVERED:
[2022-06-03 20:42] VITALS: BP 231/109; PULSE 80
[2022-06-03] MEDS: Aspirin 81 MG CHEW 324 MG CH (20:45)
[2022-06-03 21:04] VITALS: BP 231/109; PULSE 78
[2022-06-03] MEDS: Labetalol 100 MG/20 ML VIAL 10 MG IVP ×2 (21:04→21:33)
--- NOTE | 2022-06-03 21:30 | RT.EKG_ITS ---
APPROVED REPORT Exam: Resting ECG Reason for Exam: repeat EKG Patient Location: E HR:52 bpm ECG Measurements Heart Rate 52 AXIS NJ 202 P 42 QRSd 100 QRS -71 QT 477 T 188 QTc 444 Conclusion Sinus bradycardia...rate< 60 LAD, consider left anterior fascicular block...axis(240,-40), S>R II III aVF Physician: t wave depressions in lateral leads
[2022-06-03] MEDS: nitroGLYcerin 0.4 MG TAB SL (21:34)
[2022-06-03 21:35] LABS: Source Nasal/Nares
[2022-06-03 21:46] VITALS: BP 148/52; PULSE 59; RESP 18; O2SAT 92
[2022-06-03 22:04] LABS: COVID-19 PCR Negative (Negative)
[2022-06-03 22:13] VITALS: BP 136/51; PULSE 70; RESP 18; O2SAT 95
[2022-06-03 22:32] LABS: Troponin I 161 ng/L (<or=60)
--- NOTE | 2022-06-03 23:35 | ED.GENADUL_ITS ---
Discharge Plan Disposition Patient Disposition: HOME Condition: Critical Discharge Details Clinical Impression: Non-ST elevation NC (NSTEMI), Hypertensive emergency Primary Care Provider: Andrew Novak ED Provider: Evelyn Sanchez Home Meds and New Rx's Prescriptions: No Action Praluent Pen 75 mg/mL pen injector 75 mg subcut Q3W Qty: 2 0RF Rx Instructions: inject into abdomen, thigh, or upper arm (deltoid muscle); rotate sites cardiology losartan 25 mg tablet 25 mg PO DAILY Qty: 90 0RF fluticasone propion-salmeterol [Advair Diskus] 250-50 mcg/dose blister with device 1 inh Inhalation BID Qty: 1 11RF acetaminophen [Acetaminophen Extra Strength] 500 MG tablet 1,000 mg PO Q4H PRN garlic 1 EACH tablet 1 - 6 ea PO DAILY albuterol sulfate [ProAir HFA] 90 mcg/actuation HFA aerosol inhaler 2 puff Inhalation Q4H PRN Qty: 2 6RF triamcinolone acetonide 0.025 % ointment 1 applic Topical BID Qty: 80 1RF Discharge Data Discharge Date/Time-TO BE ENTERED AT DEPARTURE: 06/04/22 15:52 Medical Decision Making <WILBERT Fuentes - Last Filed: 06/04/22 21:50> Patient appears well, troponin and elevated at 92 Chest x-ray does not show evidence of acute abnormality EKG shows bifascicular block, no recent prior to compare Intermittent chest pain, lasting 1 to 2 seconds with radiation to right arm Patient notably hypertensive at 257/122 Given [id number] mg and nitro, repeat EKG shows diffuse patient T wave inversions Received 324 mg of ASA Case discussed with Dr. Torres cardiology at [facility] who recommends CTA of patient's chest and repeat troponin, repeat troponin 168 increased from 98 CTA does not show evidence of acute abnormality cardiology interpretation pain free post labetolol and nitro with improvement of BP recurrent HTN treated with [address] Valenzuela called at 0013 and recommended Plavix 600 mg and heparin drip for non- ST elevation NC, hypertensive emergency Prior to starting anticoagulation, trauma has been placed consult Case discussed with Dr. Burroughs, did not review CT images and request that rev iew of CT facial, this was ordered and patient will pend heparin and Plavix at this time She is a patient is asymptomatic in the room, blood pressure 126/90 10:03 milligrams of labetalol Medical Records Medical records reviewed: Yes I reviewed the patient's medical records. Lab Data Lab results reviewed: Yes I reviewed the patient's lab results. <Wilfrido Booker, DO - Last Filed: 06/04/22 03:22> Patient appears well, troponin and elevated at 92 Chest x-ray does not show evidence of acute abnormality EKG shows bifascicular block, no recent prior to compare Intermittent chest pain, lasting 1 to 2 seconds with radiation to right arm Patient notably hypertensive at 257/122 Given mg and nitro, repeat EKG shows diffuse patient T wave i nversions Received 324 mg of ASA Case discussed with Dr. Torres cardiology at [facility] who recommends CTA of patient's chest and repeat troponin, repeat troponin 168 increased from 98 CTA does not show evidence of acute abnormality cardiology interpretation pain free post labetolol and nitro with improvement of BP recurrent HTN treated with [address] Valenzuela called at 0013 and recommended Plavix 600 mg and heparin drip for non- ST elevation NC, hypertensive emergency Prior to starting anticoagulation, trauma has been placed consult Case discussed with Dr. Burroughs, did not review CT images and request that review of CT facial, this was ordered and patient will pend heparin and Plavix at this time She is a patient is asymptomatic in the room, blood pressure 126/90 10:[address] Booker's documentation Patient was signed out to me by Debora, please refer to HPI, physical exam, assessment plan. At time of signout the patient had already been accepted to [facility] for transfer, however [facility] had requested a CT of the facial bones. Reconstruction was performed, and the results were negative for fracture. Trauma and max/face saw no contraindications for heparinization. Recommendations were given for heparinization protocol. Heparin was started. Patient will remain in the ED until a bed at [facility] is available. FINDINGS: Orbital cavities: Normal globes bilaterally without retro-orbital masses. Bones/joints: No acute fracture. Paranasal sinuses: No significant disease of the paranasal sinuses. Soft tissues: Frontal scalp soft tissue edema / hematoma with right frontal scalp laceration. IMPRESSION: 1. No acute fracture. 2. Frontal scalp soft tissue edema / hematoma with right frontal scalp laceration. Thank you for allowing us to participate in the care of your patient. Dictated and Authenticated by: Kai Koroma MD 06/04/2022 2:18 AM Eastern Time ([place] & [place]) <Evelyn Digna DejesusricardaDO - Last Filed: 06/04/22 15:57> Patient appears well, troponin and elevated at 92 Chest x-ray does not show evidence of acute abnormality EKG shows bifascicular block, no recent prior to compare Intermittent chest pain, lasting 1 to 2 seconds with radiation to right arm Patient notably hypertensive at 257/122 Given [id number] mg and nitro, repeat EKG shows diffuse patient T wave inversions Received 324 mg of ASA Case discussed with Dr. Torres cardiology at [facility] who recommends CTA of pat ient's chest and repeat troponin, repeat troponin 168 increased from 98 CTA does not show evidence of acute abnormality cardiology interpretation pain free post labetolol and nitro with improvement of BP recurrent HTN treated with [address] Valenzuela called at 0013 and recommended Plavix 600 mg and heparin drip for non- ST elevation NC, hypertensive emergency Prior to starting anticoagulation, trauma has been placed consult Case discussed with Dr. Burroughs, did not review CT images and request that review of CT facial, this was ordered and patient will pend heparin and Plavix at this time She is a patient is asymptomatic in the room, blood pressure 126/90 10:[address] Booker's documentation Patient was signed out to me by Debora, please refer to HPI, physical exam, assessment plan. At time of signout the patient had already been accepted to [facility] for transfer, however [facility] had requested a CT of the facial bones. Reconstruction was performed, and the results were negative for fracture. Trauma and max/face saw no contraindications for heparinization. Recommendations were given for heparinization protocol. Heparin was started. Patient will remain in the ED until a bed at [facility] is available. FINDINGS: Orbital cavities: Normal globes bilaterally without retro-orbital masses. Bones/joints: No acute fracture. Paranasal sinuses: No significant disease of the paranasal sinuses. Soft tissues: Frontal scalp soft tissue edema / hematoma with right frontal scalp laceration. IMPRESSION: 1. No acute fracture. 2. Frontal scalp soft tissue edema / hematoma with right frontal scalp laceration. Thank you for allowing us to participate in the care of your patient. Dictated and Authenticated by: Kai Koroma MD 06/04/2022 2:18 AM Eastern Time ([place] & [place]) Dr. Sanchez 0730 -- Case endorsed to continue to monitor while awaiting transfer to [facility]. 1200 --patient complained to nurse of indigestion . Stat EKG obtained which showed a rate of 65, sinus with T wave inversion in lateral leads but no STEMI or significant change compared to prior EKG. Will obtain a stat troponin and give a dose of Pepcid. Pt declines Pepcid and requested Papaya for her indigestion which we don't have. 1530 -- Bed now available at [facility]. Pt hemodynamically stable prior to transfer. Last troponin within normal limits. HPI <WILBERT Fuentes - Last Filed: 06/04/22 21:50> General Date/Time Provider Initiated Documentation: 06/03/22 16:40 . HPI Narrative: This 86-year-old female with past medical history of coronary artery disease, hyperlipidemia presents with report of fall just prior to arrival. She tripped in her bathroom floor, hitting her head on the dresser. Denies any loss of consciousness. Reports that she coughs frequently secondary to right-sided weakness which is chronic per patient. She denies any nausea or vomiting. She has some mild pain to her head. She denies any history of anticoagulation. Denies current chest pain or shortness of breath. Denies any weakness as needed for patient today. Denies any urinary symptoms. Related Data Home Medications Medication Instructions Recorded Confirmed acetaminophen 500 mg tablet 1,000 mg PO Q4H PRN 08/06/15 06/03/22 (Acetaminophen Extra Strength) garlic 1 - 6 ea PO DAILY 01/12/18 06/03/22 albuterol sulfate 90 mcg/actuation 2 puff inhalation Q4H PRN #2 grams 09/16/21 06/03/22 aerosol inhaler (ProAir HFA) triamcinolone acetonide 0.025 % 1 applic topical BID #80 grams 09/16/21 06/03/22 topical ointment alirocumab 75 mg/mL subcutaneous 75 mg subcut Q3W #2 mL 01/01/22 06/03/22 pen injector (Praluent Pen) fluticasone 250 mcg-salmeterol 50 1 inh inhalation BID #1 ea 05/27/22 06/03/22 mcg/dose blistr powdr for inhalation (Advair Diskus) losartan 25 mg tablet 25 mg PO DAILY #90 tabs 05/27/22 06/03/22 Previous Rx's Medication Instructions Recorded albuterol sulfate 90 mcg/actuation 2 puff inhalation Q4H PRN #2 grams 09/16/21 aerosol inhaler (ProAir HFA) triamcinolone acetonide 0.025 % 1 applic topical BID #80 grams 09/16/21 topical ointment alirocumab 75 mg/mL subcutaneous 75 mg subcut Q3W #2 mL 01/01/22 pen injector (Praluent Pen) fluticasone 250 mcg-salmeterol 50 1 inh inhalation BID #1 ea 05/27/22 mcg/dose blistr powdr for inhalation (Advair Diskus) losartan 25 mg tablet 25 mg PO DAILY #90 tabs 05/27/22 Allergies Allergy/AdvReac Type Severity Reaction Status Date / Time neomycin [Neomycin] Allergy Unknown Verified 06/03/22 16:59 Sulfa (Sulfonamide Allergy Unknown Verified 06/03/22 16:59 Antibiotics) doxycycline AdvReac Intermediate rash/hives Verified 06/03/22 16:59 ibuprofen AdvReac Intermediate ASTHMA Verified 06/03/22 16:59 EXACERBATION Sxnkokr-PYF-JiX Reductase AdvReac Intermediate myalgias Verified 06/03/22 16:59 Inhibitor [Mrnxtca-Tgt-Liw Reductase Inhibitor] caffeine AdvReac Mild HOT FLASHES Verified 06/03/22 16:59 gluten AdvReac Mild DIARRHEA Verified 06/03/22 16:59 mushrooms AdvReac Mild stomach Uncoded 06/03/22 16:59 cramps/diarrhea POTATO AdvReac Mild Uncoded 06/03/22 16:59 General Stated Complaint: Laceration DAMIÁN: 3 Review of Systems <WILBERT Fuentes - Last Filed: 06/04/22 21:50> All systems reviewed & are unremarkable except as noted in HPI and below PFSH <WILBERT Fuentes - Last Filed: 06/04/22 21:50> All Active Problems (Updated 06/04/22 @ 00:36 by WILBERT Fuentes) Non-ST elevation NC (NSTEMI) (Acute) Hypertensive emergency (Acute) Hematoma (Acute) Wound of skin (Acute) Rotator cuff tear arthropathy of right shoulder (Acute) Primary osteoarthritis, left shoulder (Acute) Essential hypertension (Acute) Prediabetes (Acute) 12/2021,[id number]% Hyperlipidemia (Acute) Spinal stenosis of lumbar region (Acute 11/09/16) periphreal neuropathy of both legs. Imbalance Asthma (Chronic) CAD (coronary artery disease), [place] coronary artery (Acute) CABG x 4 2015 Neuropathy (Acute) Medical History Asthma Biceps tendinitis of right shoulder Bursitis of right shoulder CAD (coronary artery disease), [place] coronary artery CABG x 4 2015 Carpal tunnel syndrome on both sides (06/05/14) Chest pain negative stress echo 07/27 CABG x4 07/29 [facility] [place] Diabetes mellitus Diverticulosis of colon without diverticulitis Eczema (11/19/14) Essential hypertension (06/18/13) Hand pain Hx of squamous cell carcinoma Hypertrophic toenail Knee pain Metabolic syndrome X Osteoarthritis Right rotator cuff tendonitis Depo-Medrol injection: 11/18/2020 Sensorineural hearing loss, bilateral (06/06/14) digital [employer] [place] RITE, bilaterally. RITE--312 BATTERY, WAX PRO, Right SN: [id number] SN: [id number] Skin lesion Spinal stenosis of lumbar region (11/09/16) periphreal neuropathy of both legs. Imbalance Squamous cell cancer of scalp and skin of neck Subacromial impingement of right shoulder Tremor Surgical History History of myringotomy History of reduction mammoplasty Hx of squamous cell carcinoma excision Hysterectomy, Laproscopic Myringotomy w/ PE (pressure equalizing) tubes Open Carpal Tunnel release (~2004) B/L Reduction mammoplasty Replacement of total knee joint B/L Status post carpal tunnel release Status post laparoscopic hysterectomy Status post total knee replacement Social History Smoking/Tobacco Use Status: Never Smoking risk assessment performed?: Yes Drug use: Never Current gender identity: female Exam <WILBERT Fuentes - Last Filed: 06/04/22 21:50> Const General: cooperative Orientation: alert and oriented x3 [facility] Head images: 1. periorbital ecchymosis 2. hematoma 3. hematoma 4. 1 inch laceration Eyes Pupils: PERRL Other: Extraocular muscles intact Neck Other: no midline tenderness Resp Effort & Inspection: normal respiratory effort Auscultation: clear to auscultation bilaterally Cardio Rate: regular rate Rhythm: regular rhythm GI Inspection: normal to inspection Back/Spine/Pelvis Back: no CVA tenderness Skin General skin exam: no rashes or lesions noted Other: laceration forehead , right Neuro General: patient alert and patient oriented x3 Cognition: normal cognition Speech: speech normal Other: GCS15 Extrem Other: small ulcer right lateral ankle no surrounding erythema Course <WILBERT Fuentes - Last Filed: 06/04/22 21:50> Vital Signs Vital signs: Vital Signs Temperature 35.9 C L 06/03/22 16:51 Pulse 78 06/03/22 16:51 Respiratory Rate 18 06/03/22 16:51 Blood Pressure 252/96 H 06/03/22 16:51 Pulse Oximetry 98 06/03/22 16:51 Temperature 35.9 C L 06/03/22 16:51 Temperature Source Tympanic 06/03/22 16:51 Pulse 70 06/03/22 22:13 Respiratory Rate 18 06/03/22 22:13 Blood Pressure 136/51 L 06/03/22 22:13 Blood Pressure Position Sitting 06/03/22 16:51 Pulse Oximetry 95 06/03/22 22:13 Oxygen Delivery Method Room Air 06/03/22 22:13 Oxygen Flow Rate 0 06/03/22 22:13 Lab/Test Results Lab/Test Results: Laboratory Tests Range/Units 06/03/22 06/03/22 06/03/22 18:37 19:23 19:23 WBC (4.4-10.8) 10^3/uL 11.26 H RBC (3.93-5.22) 10^6/uL 5.53 H Hgb (11.2-15.7) g/dL 14.8 Hct (36.0-46.0) % 46.2 H MCV (80-95) fL 84 MCH (27.0-33.0) pg 26.8 L MCHC (32.0-36.0) % 32.0 RDW (11.7-14.6) % 14.0 Plt Count (130-400) 10^3/uL 198 MPV (8.0-11.0) fL 9.9 Immature Gran % 0.3 Neutrophils % 85.0 Lymphocytes % 10.0 Monocytes % 3.6 Eosinophils % 0.8 Basophils % 0.3 Nucleated RBC % (0.0-0.3) % 0.0 Absolute Neutrophils (1.2-6.7) 10^3/uL 9.57 H Absolute Lymphocytes (1.2-3.4) 10^3/uL 1.13 L Absolute Monocytes (0.1-0.8) 10^3/uL 0.41 Absolute Eosinophils (0.0-0.7) 10^3/uL 0.09 Absolute Basophils (0.0-0.2) 10^3/uL 0.03 Sodium (136-145) mmol/L 142 Potassium (3.5-5.1) mmol/L 3.6 Chloride (98-107) mmol/L 104 Carbon Dioxide (21.0-32.0) mmol/L 27.8 Anion Gap (3-11) mmol/L 10.2 BUN (7-18) mg/dL 15 Creatinine (0.55-1.02) mg/dL 0.9 Est GFR (CKD-EPI 2020) (mL/min/1.73m2) 63.04 Glucose (74-106) mg/dL 119 H Calcium (8.5-10.1) mg/dL 9.4 Total Bilirubin (0.2-1.0) mg/dL 0.5 AST (15-37) U/L 27 ALT (14-59) U/L 29 Alkaline Phosphatase (46-116) U/L 84 Troponin I (<or=60) ng/L 98 H* Total Protein (6.4-8.2) g/dL 7.7 Albumin (3.4-5.0) g/dL 4.2 Urine Color (Yellow) Yellow Urine Clarity (Clear) Clear Urine pH (5-8) 6.0 Ur Specific [place] (1.005-1.025) 1.025 Urine Protein (Negative) mg/dL Trace H Urine Ketones (Negative) mg/dL Trace H Urine Blood (Negative) Trace-lysed H Urine Nitrite (Negative) Negative Urine Bilirubin (Negative) Negative Urine Urobilinogen (Up TO 0.2) EU/dL 0.2 Ur Leukocyte Esterase (Negative) Negative Urine RBC (0-2) HPF 0-2 Urine WBC (0-5) HPF 5-10 Ur Epithelial Cells (Negative) HPF Moderate Urine Crystals (Negative) HPF Negative Urine Bacteria (Negative) HPF Few Urine Casts (Negative) LPF Negative Urine Mucus (Negative) Negative Ur Culture Indicated? No/Sq. Contamination Urine Glucose (Negative) mg/dL Negative COVID-19 Source SARS-CoV-2 (PCR) (Negative) Range/Units 06/03/22 06/03/22 21:32 21:56 WBC (4.4-10.8) 10^3/uL RBC (3.93-5.22) 10^6/uL Hgb (11.2-15.7) g/dL Hct (36.0-46.0) % MCV (80-95) fL MCH (27.0-33.0) pg MCHC (32.0-36.0) % RDW (11.7-14.6) % Plt Count (130-400) 10^3/uL MPV (8.0-11.0) fL Immature Gran % Neutrophils % Lymphocytes % Monocytes % Eosinophils % Basophils % Nucleated RBC % (0.0-0.3) % Absolute Neutrophils (1.2-6.7) 10^3/uL Absolute Lymphocytes (1.2-3.4) 10^3/uL Absolute Monocytes (0.1-0.8) 10^3/uL Absolute Eosinophils (0.0-0.7) 10^3/uL Absolute Basophils (0.0-0.2) 10^3/uL Sodium (136-145) mmol/L Potassium (3.5-5.1) mmol/L Chloride (98-107) mmol/L Carbon Dioxide (21.0-32.0) mmol/L Anion Gap (3-11) mmol/L BUN (7-18) mg/dL Creatinine (0.55-1.02) mg/dL Est GFR (CKD-EPI 2020) (mL/min/1.73m2) Glucose (74-106) mg/dL Calcium (8.5-10.1) mg/dL Total Bilirubin (0.2-1.0) mg/dL AST (15-37) U/L ALT (14-59) U/L Alkaline Phosphatase (46-116) U/L Troponin I (<or=60) ng/L 161 H* Total Protein (6.4-8.2) g/dL Albumin (3.4-5.0) g/dL Urine Color (Yellow) Urine Clarity (Clear) Urine pH (5-8) Ur Specific [place] (1.005-1.025) Urine Protein (Negative) mg/dL Urine Ketones (Negative) mg/dL Urine Blood (Negative) Urine Nitrite (Negative) Urine Bilirubin (Negative) Urine Urobilinogen (Up TO 0.2) EU/dL Ur Leukocyte Esterase (Negative) Urine RBC (0-2) HPF Urine WBC (0-5) HPF Ur Epithelial Cells (Negative) HPF Urine Crystals (Negative) HPF Urine Bacteria (Negative) HPF Urine Casts (Negative) LPF Urine Mucus (Negative) Ur Culture Indicated? Urine Glucose (Negative) mg/dL COVID-19 Source Nasal/Nares SARS-CoV-2 (PCR) (Negative) Negative Procedures <WILBERT Fuentes - Last Filed: 06/04/22 21:50> Laceration Laceration 1: Site: other (head ) Side (If applicable): right Size (cm): 2.5 Description: linear Local Anesthetic: Lidocaine 1% and with Epi Amount of anesthesia used (mL): 5 Pre-repair: wound explored and irrigated extensively Skin layer closed with: nylon Size (cm): 5-0 Number of sutures: 4 Technique: simple, interrupted Number of sutures: 2 Technique: simple, interrupted Critical Care Time <WILBERT Fuentes Last Filed: 06/04/22 21:50> Critical Care Time Critical Care Time: Yes Total Critical Care Time: 65 Attestation: IV antihypertensives, telemetry monitoring, aspirin, anticoagulation, cardiology consultation, diagnostic imaging, diagnostic labs, EKG, and transfer to [facility], trauma consultation Sign Out <WILBERT Fuentes Last Filed: 06/04/22 21:50> Sign Out Data: Sign Out Comment: pending facial ct, plavix 600 mg and heparin drip without bolus if negative facial ct, [place] [facility] [place] Last updated by Debora Montaño PA at 06/04/22 00:48 Sign Out Comment: NSTEMI, on heparin drip, transferring to [facility] when bed available this afternoon Last updated by Wilfrido Booker DO at 06/04/22 07:10
[2022-06-03] MEDS: Omnipaque 350 MG/ML 100 ML BTL IJ (23:39)
[2022-06-03] MEDS: Normal Saline Flush 10 ML SYR IVP (23:44)
--- NOTE | 2022-06-03 23:49 | DI.VRAD_ITS ---
PROCEDURE INFORMATION: Exam: XR Chest Exam date and time: 06/03/2022 8:54 PM Age: 86 years old Clinical indication: Chest pain, elevated trop TECHNIQUE: Imaging protocol: Radiologic exam of the chest. Views: 1 view. COMPARISON: CR CHEST 2 VIEWS PA,LAT 09/26/2015 11:06 AM FINDINGS: Tubes, catheters and devices: Cardiac leads superimposed over the chest. Lungs: No alveolar infiltrate. Pleural spaces: No pneumothorax. No pleural fluid collection. Heart/Mediastinum: Stable cardiac silhouette. Bones/joints: Spinal and left shoulder degenerative changes. Multiple sternal suture wires from previous CABG procedure. IMPRESSION: No acute infiltrate or congestive changes. Dictated and Authenticated by: Kai Koroma MD. Ordering:ZAID Cazares MD
--- NOTE | 2022-06-03 23:50 | DI.CT_ITS ---
Exam(s) CT CHEST PE CTA EXAM: CT CHEST PE CTA CLINICAL HISTORY: chest pain. TECHNIQUE: Imaging Protocol: CT angiography of the chest was performed using pulmonary embolus justus col. Multi planar reconstructions were performed. CONTRAST MATERIAL: Intravenous: Omnipaque 350 Contrast volume: 100 cc COMPARISON: No exams were available for comparison FINDINGS: CHEST: PULMONARY ARTERIES: There are no intraluminal filling defects to suggest acute pulmonary emboli. LUNGS: There are no infiltrates nor evidence of pulmonary infarction.. There are no pleural effusions . MEDIASTINUM: There is no hilar nor mediastinal adenopathy. Visualized thyroid unremarkable.Small hiat al hernia noted CARDIAC: Sternotomy wires. Mild cardiomegaly. No pericardial effusion.Caliber of the thoracic aorta is within upper normal limits. No evidence of aortic dissection. There is no significant shift of t he interventricular septum. PARTIALLY VISUALIZED UPPERMOST ABDOMEN: No obvious findings OSSEOUS: No significant osseous lesions.No acute fractures evident.. IMPRESSION: 1. No evidence of acute pulmonary emboli. No evidence of pulmonary infarction.No pleural effusions. No significant pulmonary infiltrates. No intrathoracic adenopathy. 2. Cardiomegaly. Sternotomy wires. 3. Small hiatal hernia. RADIATION DOSE DELIVERED: 412.95mGy.cm Total DLP DATA REPOSITORY: All CT scans at this facility are submitted to the National Radiology Data Registry (NRDR) Dose Index Registry (DIR) with the [employer] ([employer]). RADIATION OPTIMIZATION: All CT scans at this facility use at least one of these dose optimization te chniques: automated exposure control; mA and/or kV adjustment per patient size (includes targeted exa ms where dose is matched to clinical indication); or iterative reconstruction.
[2022-06-04] VITALS (134 sets, daily range): BP systolic 86–190; BP diastolic 28–95; PULSE 43–106; RESP 10–37; O2SAT 94
--- NOTE | 2022-06-04 00:04 | DI.VRAD_ITS ---
PROCEDURE INFORMATION: Exam: CTA Chest With Contrast Exam date and time: 06/03/2022 11:40 PM Age: 86 years old Clinical indication: Other: Chest pain TECHNIQUE: Imaging protocol: Computed tomographic angiography of the chest with contrast. 3D rendering (Not supervised by radiologist): MIP and/or 3D reconstructed images were created by the technologist. Radiation optimization: All CT scans at this facility use at least one of these dose optimization techniques: automated exposure control; mA and/or kV adjustment per patient size (includes targeted exams where dose is matched to clinical indication); or iterative reconstruction. Contrast material: OMNIPAQUE 350; Contrast volume: 65 ml; Contrast route: INTRAVENOUS (IV); COMPARISON: XR PORTABLE CHEST AP 06/03/2022 8:54 PM FINDINGS: Pulmonary arteries: No evidence of pulmonary embolism. Aorta: Normal caliber thoracic aorta without dissection or aneurysm. Lungs: No alveolar or ground glass infiltrate. Pleural spaces: No pleural fluid collection. No pneumothorax. Heart: No right ventricular strain. No pericardial effusion. Prior CABG. Lymph nodes: No enlarged lymph nodes. Diaphragm: Small hiatal hernia. Bones/joints: Spinal degenerative changes. Mild scoliosis. Prior median sternotomy. Soft tissues: Unremarkable. IMPRESSION: 1. No evidence of pulmonary embolism. 2. No pulmonary infiltrate or pleural fluid collection. Dictated and Authenticated by: Kai Koroma MD. Ordering:ZAID Cazares MD
[2022-06-04] MEDS: Labetalol 100 MG/20 ML VIAL 20 MG IVP (00:30)
--- NOTE | 2022-06-04 00:30 | DI.CT_ITS ---
Exam(s) CT FACIAL WO EXAM: CT FACIAL WO CLINICAL HISTORY: facial trauma. TECHNIQUE: Imaging Protocol: Axial computed tomography images with coronal and sagittal reformatted images were created and reviewed. No IV contrast COMPARISON: CT CT HEAD CERVICAL SPINE WO from 06/03/2022 FINDINGS: MAXILLOFACIAL CT SCAN: There is a large frontal scalp hematoma with some deep air at this level indicating laceration. No f racture or fluid in the subjacent frontal sinuses. There is no evidence of facial fractures nor fluid the visualized paranasal sinuses. There is no claudine dence of orbital blowout fracture. IMPRESSION: No evidence of facial bone fractures nor orbital fractures. Large frontal hematoma/laceration. No radiopaque foreign body. RADIATION DOSE DELIVERED: Total DLP DATA REPOSITORY: All CT scans at this facility are submitted to the National Radiology Data Registry (NRDR) Dose Index Registry (DIR) with the [employer] (A[employer]). RADIATION OPTIMIZATION: All CT scans at this facility use at least one of these dose optimization te chniques: automated exposure control; mA and/or kV adjustment per patient size (includes targeted exa ms where dose is matched to clinical indication); or iterative reconstruction.
[2022-06-04] MEDS: Normal Saline 1,000 ML 125 ML IV (01:19)
--- NOTE | 2022-06-04 02:19 | DI.VRAD_ITS ---
PROCEDURE INFORMATION: Exam: CT Maxillofacial Without Contrast Exam date and time: 06/03/2022 6:49 PM Age: 86 years old Clinical indication: Injury; Fall; Blunt trauma forehead; Injury date: 06/03/22; Injury details: Recon images requested by [facility]. TECHNIQUE: Imaging protocol: Computed tomography of the of the face without contrast. Radiation optimization: All CT scans at this facility use at least one of these dose optimization techniques: automated exposure control; mA and/or kV adjustment per patient size (includes targeted exams where dose is matched to clinical indication); or iterative reconstruction. COMPARISON: CT HEAD WITHOUT CONTRAST 05/03/2016 1:49 PM FINDINGS: Orbital cavities: Normal globes bilaterally without retro-orbital masses. Bones/joints: No acute fracture. Paranasal sinuses: No significant disease of the paranasal sinuses. Soft tissues: Frontal scalp soft tissue edema / hematoma with right frontal scalp laceration. IMPRESSION: 1. No acute fracture. 2. Frontal scalp soft tissue edema / hematoma with right frontal scalp laceration. Dictated and Authenticated by: Kai Koroma MD. Ordering:ZAID Cazares MD
[2022-06-04] MEDS: Acetaminophen 325 MG TAB PO (02:53)
[2022-06-04 03:18] LABS: Troponin I 109 ng/L (<or=60)
[2022-06-04 03:59] LABS: PTT Activated 26.1 sec (21.0-27.5)
[2022-06-04] MEDS: Metoprolol 25 MG TAB PO (10:47)
--- NOTE | 2022-06-04 11:45 | RT.EKG_ITS ---
APPROVED REPORT Exam: Resting ECG Reason for Exam: chest pain Patient Location: E HR:65 bpm ECG Measurements Heart Rate 65 AXIS NC 203 P 73 QRSd 104 QRS -63 QT 443 T 125 QTc 462 Conclusion Sinus rhythm...normal P axis, V-rate 60- 99 Probable left atrial enlargement...P >50mS, <-0.10mV V1 LAD, consider left anterior fascicular block...axis(240,-40), S>R II III aVF Abnormal T, consider ischemia, lateral leads...T <-0.20mV, I aVL V5 V6. Sinus. T wave inversion in I and aVL. No STEMI. No significant change from previous. I have reviewed and interpreted ECG and agree with software generated interpretation.
[2022-06-04 12:25] LABS: Troponin I < 50 ng/L (<or=60)
== END 2022-06-04 15:52 | disposition home or self-care (01) ==
PROVIDERS: Physician Assistant; Student in an Organized Health Care Education/Training Program; Emergency Provider Physician Assistant; PCP Nurse Practitioner Family
DX: I21.4 Non-ST elevation (NSTEMI) myocardial infarction (principal); I16.1 Hypertensive emergency; I10 Essential (primary) hypertension; E11.9 Type 2 diabetes mellitus without complications; S01.01XA Laceration without foreign body of scalp, initial encounter; L97.319 Non-pressure chronic ulcer of right ankle with unspecified severity; Z20.822 Contact with and (suspected) exposure to COVID-19; W01.198A Fall on same level from slipping, tripping and stumbling with subsequent striking against other object, initial encounter; Y92.002 Bathroom of unspecified non-institutional (private) residence as the place of occurrence of the external cause
CPT/HCPCS: 71275; 80053; 87635; 93005; 96374; 96376; 99285; 70450; 70486; 71045; 72125; 81003; 81015; 84484; 85025; 85730; 93010; J3490

== ENCOUNTER 2022-06-18 21:19 | Outpatient (REF) | payer MEDICARE, SELFPAY ==
[2022-06-18 21:55] LABS: BUN 17 mg/dL (7-18); CREATININE 0.9 mg/dL (0.55-1.02); Chloride 106 mmol/L (98-107); Estimated GFR 63.04 (mL/min/1.73m2); Glucose 114 mg/dL (74-106); Sodium 142 mmol/L (136-145)
== END 2022-06-18 21:20 | disposition home or self-care (01) ==
LOC: LBN 21:19
PROVIDERS: Nurse Practitioner Family; PCP Nurse Practitioner Family
DX: I10 Essential (primary) hypertension (principal); R30.0 Dysuria
CPT/HCPCS: 80048; 87086

== ENCOUNTER 2022-08-25 10:21 | Emergency (ER) | payer MEDICARE, SELFPAY ==
[2022-08-25] VITALS (28 sets, daily range): BP systolic 112–177; BP diastolic 41–113; PULSE 65–89; RESP 4–26; TEMP 36.9; O2SAT 93
[2022-08-25] MEDS: EPINEPHrine 0.3 MG KIT IM (10:22)
[2022-08-25] MEDS: diphenhydrAMINE 50 MG/ML VIAL 25 MG IVP (10:30)
[2022-08-25] MEDS: Famotidine 20 MG/2 ML VIAL IVP (10:30)
--- NOTE | 2022-08-25 10:31 | ED.GENADUL_ITS ---
Discharge Plan Disposition Patient Disposition: Home Condition: Stable Discharge Details Clinical Impression: Anaphylaxis Primary Care Provider: Sukh Buitrago ED Provider: Michael Murphy Home Meds and New Rx's Prescriptions: New epinephrine 0.3 mg/0.3 mL auto-injector 0.3 mg IM ONCE PRN (Reason: anaphylaxis) Qty: 2 0RF Rx Instructions: as a single dose; may repeat once Continued Praluent Pen 75 mg/mL pen injector 75 mg subcut Q3W Qty: 2 0RF Rx Instructions: inject into abdomen, thigh, or upper arm (deltoid muscle); rotate sites cardiology fluticasone propion-salmeterol [Advair Diskus] 250-50 mcg/dose blister with device 1 inh Inhalation BID Qty: 1 11RF amlodipine 10 mg tablet 10 mg PO DAILY Rx Instructions: per [facility] aspirin 81 mg tablet,delayed release (DR/EC) 81 mg PO DAILY lisinopril 5 mg tablet 5 mg PO DAILY Qty: 90 0RF garlic 1 EACH tablet 1 - 6 ea PO DAILY albuterol sulfate [ProAir HFA] 90 mcg/actuation HFA aerosol inhaler 2 puff Inhalation Q4H PRN Qty: 2 6RF triamcinolone acetonide 0.025 % ointment 1 applic Topical BID Qty: 80 1RF Discharge Instructions Instructions: Anaphylaxis (ED) Additional Instructions: you were treated for an allergic reaction if you develop the rash again with difficulty breathing or swelling of the face use the epi pen and return to the emergency department or call 911 follow up with your primary care provider within a week Medical Decision Making 86 yo female was at the ortho clinic for her left shoulder that she has had injections for in the past and had no issues with before comes in with diffuse rash and shortness of breath shortly after bupivicaine and cortisone were injected into her leftshoulder. She states she felt well prior to this then the symptoms started suddenly so she was brought here. She arrives with diffuse erythematous rash on her neck and torso. She also is noted to have facial edema. She has apical wheezing bilaterally otherwise clear lungs, caox4, denies chest pain. Given the rapid onset of symptoms and the rash suspect anaphylaxis, im epi given immediately on arrival, will also add benadryl and famotidine and reassess pt's rash and edema significantly improved and wheezing now gone after one neb, she does feel better as well. Will continue to monitor pt stable, rash and edema resolved, lungs clear, stable vitals. She feels better has a mild headache, not severe and no meninismus, will treat with tylenol and continue to monitor pt ambulating, no dyspnea, stable vitals and no dyspnea or gi symptoms and still no rash. She is stable for d/c, epi pen prescription provided and return precutions given Differential Diagnosis Differential Diagnosis: allergic reaction, anaphylaxis Lab Data Lab results reviewed: Yes I reviewed the patient's lab results. HPI General Mode of arrival: wheelchair . Date/Time Provider Initiated Documentation: 08/25/22 10:25 . Limitations to Documentation: no limitations . Information obtained by: patient . History of Present Illness 86 year old F presents to the emergency department with the chief complaint of allergic reaction, described as moderate, Patient started experiencing this minute(s) (30) and it has been constant. No relieving factors improve symptom(s), No exacerbating factors reported . Patient notes shortness of breath. Patient did receive the following treatments prior to arrival, none Related Data Home Medications Medication Instructions Recorded Confirmed garlic 1 - 6 ea PO DAILY 01/12/18 08/25/22 albuterol sulfate 90 mcg/actuation 2 puff inhalation Q4H PRN #2 grams 09/16/21 08/25/22 aerosol inhaler (ProAir HFA) triamcinolone acetonide 0.025 % 1 applic topical BID #80 grams 09/16/21 08/25/22 topical ointment alirocumab 75 mg/mL subcutaneous 75 mg subcut Q3W #2 mL 01/01/22 08/25/22 pen injector (Praluent Pen) fluticasone 250 mcg-salmeterol 50 1 inh inhalation BID #1 ea 05/27/22 08/25/22 mcg/dose blistr powdr for inhalation (Advair Diskus) amlodipine 10 mg tablet 10 mg PO DAILY 06/18/22 08/25/22 aspirin 81 mg tablet,delayed 81 mg PO DAILY 06/18/22 08/25/22 release lisinopril 5 mg tablet 5 mg PO DAILY #90 tabs 08/06/22 08/25/22 epinephrine 0.3 mg/0.3 mL 0.3 mg (0.3 mL) IM ONCE PRN 08/25/22 injection, auto-injector anaphylaxis #2 ea Previous Rx's Medication Instructions Recorded albuterol sulfate 90 mcg/actuation 2 puff inhalation Q4H PRN #2 grams 09/16/21 aerosol inhaler (ProAir HFA) triamcinolone acetonide 0.025 % 1 applic topical BID #80 grams 09/16/21 topical ointment alirocumab 75 mg/mL subcutaneous 75 mg subcut Q3W #2 mL 01/01/22 pen injector (Praluent Pen) fluticasone 250 mcg-salmeterol 50 1 inh inhalation BID #1 ea 05/27/22 mcg/dose blistr powdr for inhalation (Advair Diskus) lisinopril 5 mg tablet 5 mg PO DAILY #90 tabs 08/06/22 epinephrine 0.3 mg/0.3 mL 0.3 mg (0.3 mL) IM ONCE PRN 08/25/22 injection, auto-injector anaphylaxis #2 ea Allergies Allergy/AdvReac Type Severity Reaction Status Date / Time bupivacaine Allergy Severe Anaphylaxis Verified 08/25/22 11:56 methylprednisolone Allergy Severe Anaphylaxis Verified 08/25/22 11:56 neomycin [Neomycin] Allergy Unknown Verified 08/25/22 11:56 Sulfa (Sulfonamide Allergy Unknown Verified 08/25/22 11:56 Antibiotics) doxycycline AdvReac Intermediate rash/hives Verified 08/25/22 11:56 ibuprofen AdvReac Intermediate ASTHMA Verified 08/25/22 11:56 EXACERBATION Lddeyza-XGA-FlD Reductase AdvReac Intermediate myalgias Verified 08/25/22 11:56 Inhibitor [Wzsftff-Yfa-Fxn Reductase Inhibitor] caffeine AdvReac Mild HOT FLASHES Verified 08/25/22 11:56 gluten AdvReac Mild DIARRHEA Verified 08/25/22 11:56 mushrooms AdvReac Mild stomach Uncoded 08/25/22 11:56 cramps/diarrhea POTATO AdvReac Mild Uncoded 08/25/22 11:56 General DAMIÁN: 3 Review of Systems All systems reviewed & are unremarkable except as noted in HPI and below Constitutional Constitutional: Denies chills and Denies fever(s) Cardiovascular Cardiovascular: Denies chest pain Respiratory Respiratory: Denies cough Gastrointestinal Gastrointestinal: Denies abdominal pain, Denies nausea and Denies vomiting Genitourinary Genitourinary: Denies dysuria Musculoskeletal Musculoskeletal: Denies joint swelling PFSH All Active Problems (Updated 08/25/22 @ 13:40 by Michael Murphy MD) Anaphylaxis (Acute) Weight loss (Acute) Pincer nail deformity (Acute) Frequent falls (Acute) Hematoma (Acute) Wound of skin (Acute) Rotator cuff tear arthropathy of right shoulder (Acute) Primary osteoarthritis, left shoulder (Acute) Essential hypertension (Acute) Prediabetes (Acute) 12/2021,opeb3d-6.2% Hyperlipidemia (Acute) Spinal stenosis of lumbar region (Acute 11/09/16) periphreal neuropathy of both legs. Imbalance Asthma (Chronic) CAD (coronary artery disease), galena coronary artery (Acute) CABG x 4 2014 Neuropathy (Acute) Medical History Biceps tendinitis of right shoulder Bursitis of right shoulder Carpal tunnel syndrome on both sides (06/05/14) Chest pain negative stress echo 07/27 CABG x4 07/29 [facility] Diverticulosis of colon without diverticulitis Eczema (11/19/14) Essential hypertension (06/18/13) Hand pain Hx of squamous cell carcinoma Hypertrophic toenail Knee pain Metabolic syndrome X Osteoarthritis Right rotator cuff tendonitis Depo-Medrol injection: 11/18/2020 Sensorineural hearing loss, bilateral (06/06/14) digital Oticon Donna RITE, bilaterally. RITE--312 BATTERY, WAX PRO, Right SN: [id number] SN: [id number] Skin lesion Squamous cell cancer of scalp and skin of neck Subacromial impingement of right shoulder Tremor Urinary frequency Surgical History History of myringotomy History of reduction mammoplasty Hx of squamous cell carcinoma excision Hysterectomy, Laproscopic Myringotomy w/ PE (pressure equalizing) tubes Open Carpal Tunnel release (~2004) B/L Reduction mammoplasty Replacement of total knee joint B/L Status post carpal tunnel release Status post laparoscopic hysterectomy Status post total knee replacement Social History Smoking/Tobacco Use Status: Never Smoking risk assessment performed?: Yes Alcohol Intake: current Alcohol Intake frequency: a few times a month Alcohol type: wine Drug use: Never Substance use type: does not use Current gender identity: female Do you feel safe at home: Yes Do you feel safe in your relationship?: Yes Exam Const Orientation: alert HENMT Head: normal to inspection Ears: external ears normal General nose exam: external nose normal Mouth: moist mucous membranes Eyes General: appearance normal, both eyes and all related structures Neck Neck: normal visual inspection Resp Effort & Inspection: no cough Auscultation: wheezes Cardio Rate: regular rate Neuro General: patient alert and patient oriented x3 Extrem General: normal to inspection Psych Mental Status: mental status grossly normal Critical Care Time Critical Care Time Critical Care Time: Yes Total Critical Care Time: 60 (minutes) Attestation: time spent giving IM epi, frequent reassessments and hemodynamic monitoring in a patient with anaphylaxis and potential to deteriorate at any time
[2022-08-25] MEDS: Albuterol 2.5 MG/3 ML INH SOLN VIAL UPD (10:43)
[2022-08-25] MEDS: Acetaminophen 500 MG TAB PO (11:29)
== END 2022-08-25 14:10 | disposition home or self-care (01) ==
PROVIDERS: Emergency Provider Emergency Medicine; PCP Nurse Practitioner Family
DX: T88.6XXA Anaphylactic reaction due to adverse effect of correct drug or medicament properly administered, initial encounter (principal); T41.3X5A Adverse effect of local anesthetics, initial encounter; T38.0X5A Adverse effect of glucocorticoids and synthetic analogues, initial encounter; I10 Essential (primary) hypertension
CPT/HCPCS: 20610; 94640; 96372; 96374; 96375; 99213; 99291; J0171; J1040; J1200; J7613

== ENCOUNTER 2022-10-22 02:52 | Outpatient (CLI) | payer MEDICARE, SELFPAY ==
[2022-10-22 11:35] LABS: Calculated LDL 157 mg/dL (<100); Cholesterol 232 mg/dL (<200); HDL Cholesterol 58 mg/dL (40-60); Triglyceride 87 mg/dL (<150)
== END 2022-10-22 02:53 | disposition home or self-care (01) ==
LOC: LBO 02:53
PROVIDERS: PCP Nurse Practitioner Family; Visit Provider Internal Medicine Cardiovascular Disease
DX: I25.10 Atherosclerotic heart disease of native coronary artery without angina pectoris (principal); E78.5 Hyperlipidemia, unspecified; I10 Essential (primary) hypertension; Z95.1 Presence of aortocoronary bypass graft
CPT/HCPCS: 36415; 80061

== ENCOUNTER 2023-01-13 21:33 | Outpatient (REF) | payer MEDICARE, SELFPAY ==
[2023-01-13 22:06] LABS: HCT 41.6 % (36.0-46.0); HGB 13.6 g/dL (11.2-15.7); MCH 27.1 pg (27.0-33.0); MCHC 32.7 % (32.0-36.0); MCV 83 fL (80-95); MPV 11.4 fL (8.0-11.0); Platelet Count 207 10^3/uL (130-400); RBC 5.01 10^6/uL (3.93-5.22); RDW 14.7 % (11.7-14.6); RDW-SD 44.8 fL; WBC 7.06 10^3/uL (4.4-10.8)
[2023-01-13 22:22] LABS: Anion Gap 7.2 mmol/L (3-11); BUN 18 mg/dL (7-18); CO2 29.8 mmol/L (21.0-32.0); CREATININE 0.8 mg/dL (0.55-1.02); Calcium 9.3 mg/dL (8.5-10.1); Chloride 105 mmol/L (98-107); Estimated GFR 72.16 (mL/min/1.73m2); Glucose 116 mg/dL (74-106); NT-proBNP 183 pg/mL (<300); Sodium 142 mmol/L (136-145)
[2023-01-17 10:13] LABS: Lyme Ab w Rflx to Lyme Confirm Negative (Negative)
== END 2023-01-13 21:34 | disposition home or self-care (01) ==
LOC: LBN 21:33
PROVIDERS: PCP Nurse Practitioner Family; Visit Provider Family Medicine
DX: I25.10 Atherosclerotic heart disease of native coronary artery without angina pectoris (principal); R53.83 Other fatigue; M25.50 Pain in unspecified joint; I10 Essential (primary) hypertension
CPT/HCPCS: 80048; 85027; 83880; 86618

== ENCOUNTER 2023-09-06 16:26 | Outpatient (REF) | payer MEDICARE, SELFPAY ==
[2023-09-09 23:08] LABS: HSV 1 PCR Negative (Negative); HSV 2 PCR Negative (Negative)
== END 2023-09-06 16:27 | disposition home or self-care (01) ==
LOC: LBN 16:26
PROVIDERS: PCP Nurse Practitioner Family; Visit Provider Nurse Practitioner Family
DX: K13.0 Diseases of lips (principal); Z11.59 Encounter for screening for other viral diseases
CPT/HCPCS: 87529

== ENCOUNTER 2023-09-13 15:55 | Outpatient (CLI) | payer MEDICARE, SELFPAY ==
--- NOTE | 2023-09-13 13:15 | DI.RAD_ITS ---
Exam(s) XR HIP RT COMPLETE AP PELVIS EXAM: XR HIP RT COMPLETE AP PELVIS CLINICAL HISTORY: RIGHT HIP PAIN. TECHNIQUE: 2D digital imaging was performed. COMPARISON: CR XR HIP LT COMPLETE AP PELVIS from 07/17/2019 FINDINGS: 3 views There is no evidence of pelvic nor hip fracture. No obvious degenerative changes in the hips. Addit ional lateral view of the right hip reveals no joint space narrowing and no osteophytes. 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 Partially visualized sacroiliac joints appear age-appropria te. IMPRESSION: No new significant radiograph findings compared to 07/17/2019. DATA REPOSITORY: RADIATION DOSE DELIVERED:
--- NOTE | 2023-09-13 13:15 | DI.RAD_ITS ---
Exam(s) XR SHOULDER LT COMPLETE 2+V EXAM: XR SHOULDER LT COMPLETE 2+V CLINICAL HISTORY: LEFT SHOULDER PAIN. TECHNIQUE: 2D digital imaging was performed of the left shoulder. Two images were obtained. Grashe y and Y views were obtained. COMPARISON: CR XR SHOULDER LT COMPLETE 2+V from 01/20/2022 CR,XR XR PORTABLE CHEST AP from 06/03/2022 FINDINGS: BONES: No acute fracture is present. No bony destructive lesion is seen. JOINTS: No dislocation present. There are marked degenerative changes seen at the glenohumeral joint with loss of the joint space and osteophytes present. There also moderate degenerative changes seen at the acromioclavicular joint. SOFT TISSUE: The patient is status post CABG. Sternal wires are in place. IMPRESSION: Marked degenerative changes seen at the glenohumeral joint. DATA REPOSITORY: RADIATION DOSE DELIVERED:
== END 2023-09-13 15:56 | disposition home or self-care (01) ==
LOC: DIORS 15:55
PROVIDERS: PCP Nurse Practitioner Family; Referring Provider Nurse Practitioner Family; Visit Provider Student in an Organized Health Care Education/Training Program
DX: M19.012 Primary osteoarthritis, left shoulder; M70.71 Other bursitis of hip, right hip
CPT/HCPCS: 99214; 73030; 73502

== ENCOUNTER → 2023-11-16 13:16 | Outpatient (BNVA) | payer MEDICARE, SELFPAY | PROVIDERS: PCP Nurse Practitioner Family; Referring Provider Nurse Practitioner Family; Visit Provider Student in an Organized Health Care Education/Training Program | DX: M19.012 Primary osteoarthritis, left shoulder (principal); M70.71 Other bursitis of hip, right hip | CPT/HCPCS: 99213 ==

== ENCOUNTER 2024-02-27 09:00 | Outpatient (CLI) | payer MEDICARE, SELFPAY ==
[2024-02-27 08:39] LABS: ALT 23 U/L (14-59); AST 18 U/L (15-37); Albumin 3.8 g/dL (3.4-5.0); Alkaline Phosphatase 87 U/L (46-116); BUN 19 mg/dL (7-18); Bilirubin, Total 0.52 mg/dL (0.2-1.0); CREATININE 0.9 mg/dL (0.55-1.02); Calcium 9.2 mg/dL (8.5-10.1); Calculated LDL 106 mg/dL (<100); Chloride 108 mmol/L (98-107); Cholesterol 178 mg/dL (<200); Estimated GFR 62.26 (mL/min/1.73m2); Glucose 114 mg/dL (74-106); HDL Cholesterol 52 mg/dL (40-60); Potassium 4.1 mmol/L (3.5-5.1); Sodium 146 mmol/L (136-145); Total Protein 6.9 g/dL (6.4-8.2); Triglyceride 103 mg/dL (<150)
== END 2024-02-27 09:01 | disposition home or self-care (01) ==
LOC: LBO 09:00
PROVIDERS: PCP Nurse Practitioner Family; Visit Provider Nurse Practitioner Family
DX: E78.5 Hyperlipidemia, unspecified (principal); R73.03 Prediabetes
CPT/HCPCS: 36415; 80053; 80061; 83036

== ENCOUNTER 2024-03-29 03:30 | Outpatient (CLI) | payer MEDICARE, SELFPAY ==
--- OUTSIDE RECORDS SUMMARY | 2024-03-29 03:32 | XMS_ITS | Encounter Summary ---
Author Organization [facility] [place] [address] Care Team Providers Care Sizing Machine And Drier Operator Name Role Phone Sukh Daniel DNP Primary Care Provider [phone] Reason for Referral * Consultation (Routine) - Authorized Specialty Diagnoses / Procedures Referred By Contfrederic t Referred To Contact Dermatology Diagnoses Generalized skin lesions Changing skin lesion Sukh Daniel DNP [address] [place] [address] [facility] [address] [place] [address] Referral ID Status Reason Start Date Expiration Date Visits Requested Visits Authorized [id number] Authorized Consult, Test & Treat PCP Updated and/or Approved 02/28/2024 02/27/2025 6 6 Encounter Details Date Type Department Care Team (Late st Contact Info) Description 03/10/2024 Transcribe Orders eDH Incoming Referrals [phone] Sukh Daniel DNP [address] [place], [place] [id number] Generalized skin lesions; Changing skin lesion Social History Tobacco Use Types Packs/Day Years Used Date Smoking Tobacco: Never Smokeless Tobacco: Never Alcohol Use Standard Drinks/Week Comments Yes 0 (1 standard drink = 0.6 oz pur e alcohol) Social Sex and Gender Information Value Date Recorded Sex Assigned at Not on file Gender Identity Not on file Sexual Orientation Not on file documented as of this encounter Plan of Treatment Scheduled Referrals Name Type Priority Associated Diagnoses Order Schedule Referral to Dermatology Outpatient Referral Routine Generalized skin lesions Changing skin lesion Ordered: 03/10/2024 documented as of this encounter Goals Goal Patient Goal Type Associated Problems Recent Progress Patient-Stated? Author LDL CALC < 70 Result Component No Michael [facility], [facility] documented as of this encounter Visit Diagnoses Diagnosis Generalized skin lesions Unspecified disorder of skin and subcutaneous tissue Changing skin lesion Unspecified disorder of skin and subcutaneous tissue documented in this encounter Care Teams Sizing Machine And Drier Operator Relationship Specialty Start Date End Date Sukh Daniel DNP [address] [place] [id number] PCP - General Family Medicine 09/19/23 documented as of this encounter
--- OUTSIDE RECORDS SUMMARY | 2024-03-29 03:32 | XMS_ITS | Clinical Summary ---
Author Organization [place] [address] Care Team Providers Care Long Term Care Administrator Name Role Phone Sukh Daniel DNP Primary Care Provider Allergies Active Allergy Reactions Criticality Noted Date Comments Bacitracin Caffeine Low 07/14/2021 Other Reaction(s): HOT FLASHES Cortisone 10/28/2022 Ingredient in shot caused reaction Doxycycline High 07/14/2021 Other Reaction(s): rash/hives Gabapentin Other (See Comments) 04/21/2017 [place] like a zombie Gluten Diarrhea Low 07/14/2021 Gramicidin D Lidocaine Neomycin Sulfate Hydrocortisone 09/28/2012 Polymyxin B Polymyxin B Sulfate Jfoevnd-Dxs-Vxa Reductase Inhibitors Other (See Comments) 06/22/2017 Muscle soreness/weakness, fatigue Sulfa (Sulfonamide Antibiotics) Medications Medication Sig Dispensed Refills Start Date End Date Status fluticasone-salmeter ol (ADVAIR) 250-50 mcg/dose Disk with Device Inhale 1 puff into the lungs 2 times daily. Active Cod Liver Oil Oil Take 1 Dose by mouth. Active GLUCOSAMINE/METHYLSU LFONYLMETH (GLUCOSAMINE MSM ORAL) Take 500 mg by mouth as needed. Active CALCIUM ORAL Take 1 tablet by mouth daily. Active FEVERFEW ORAL Take 1 tablet by mouth daily. Active cholecalciferol, Vitamin D3, 10 mcg (400 unit) CapsuleIndications:o ne daily Take by mouth. Indications: one daily Active nitroGLYcerin (Nitrostat) 0.4 mg Tablet, SublingualIndication s:Coronary artery disease involving [place] coronary artery, angina presence unspecified, unspecified whether [place] or transplanted heart Place 1 tablet under the tongue every 5 minutes as needed for Chest pain. 90 tablet 12 09/19/2020 Active Additional Information Patient not taking.Reported on 12/16/2023 ubidecarenone (CO Q-10 ORAL) Take by mouth. Active amLODIPine (Norvasc) 10 mg Tablet Take 1 tablet by mouth daily. 90 tablet 3 06/10/2022 Active ezetimibe (Zetia) 10 mg tabletIndications:Hy perlipidemia, unspecified hyperlipidemia type Take 1 tablet by mouth daily. 90 tablet 3 03/29/2023 Active alirocumab (Praluent Pen) 75 mg/mL Pen InjectorIndications: Hyperlipidemia, unspecified hyperlipidemia type Inject 1 mL subcutaneously every 21 days. 2 mL 3 06/09/2023 Active Garlic 1,000 mg capsule daily. 01/12/2018 Active albuteroL 90 mcg/actuation inhaler (HFA) every 4 hours as needed. 07/01/2020 Active EPINEPHrine 0.3 mg/0.3 mL Auto-Injector Once 08/25/2022 Active lisinopriL (Zestril) 5 mg tablet TAKE ONE TO TWO TABLETS BY MOUTH EVERY DAY DIRECTED Active Active Problems Problem Noted Date Diagnosed Date HLD (hyperlipidemia) 07/05/2022 Assessment & Plan (10/28/2022 3:02 PM EDT): Will re-prescribe for her alirocumab (Praluent) 75 mg every 21 days. Wound of left leg 06/07/2022 Hypertensive emergency 06/05/2022 Frequent falls 06/05/2022 NSTEMI (non-ST elevated myocardial infarction) 1 LUNA (dyspnea on exertion) 01/30/2019 Assessment & Plan (10/28/2022 3:10 PM EDT): Has become weaker, less active, no significant SOB anymore with reduced activity, no leg edema. Assessment & Plan (03/13/2019 12:17 PM EDT): With normal proBNP and triggering by dust may primarily be lung related. Assessment & Plan (01/30/2019 6:43 PM EDT): Could bye due to asthma - since inhalers usually help and wheezing often is present, diastolic dysfunction (which she likely has and apparently was felt to be supported by recent outside echo - however her normal proBNP is reassuring), ischemia - however her nuclear stress by report did not reveal significant reversible ischemia. Muscle cramps 01/30/2019 Assessment & Plan (03/13/2019 12:16 PM EDT): Have improved. Assessment & Plan (01/30/2019 6:41 PM EDT): Normal serum K, Ca and Mg today. Etiology not obvious to me at this point. Asthma 09/19/2018 Status post coronary artery bypass grafting 07/15 Overview (10/28/2022): 09/24/2014 CABG x 4: DAUGHERTY to LAD, SVG to om, svg to diag, jerardo to rca. 10/11/2018 Nuclear stress test at [facility] to 6.5 METS showed predominantly fixed defect in the basal to mid lateral wall, LVEF 59%. 12/19/2018 Echocardiogram showed asymetrical septal thickening, nl LVEF, evidence for diastolic dysfunction with increased filling pressure, aortic valve sclerosis. 05/2022 [facility]: non-obstructive Assessment & Plan (10/28/2022 3:09 PM EDT): Have suggested to resume taking ASA 81 mg/day. No angina. Assessment & Plan (03/13/2019 12:18 PM EDT): Overall seems to be doing fine. Lipid being managed by Dr Mclaughlin. Assessment & Plan (01/30/2019 6:22 PM EDT): Overall seem to be doing well, no ischemia on recent nuclear stress test which was done for dyspnea. Continue risk factor management. CAD (coronary artery disease) 07/02/2015 Hypertension 07/02/2015 Assessment & Plan (10/28/2022 3:12 PM EDT): Pt does not want any additional BP medication at this time, is afraid of lightheadedness. Will check on next visit. She takes occasional spironolactone 12.5 mg after eating too much salt of feeling swollen. Assessment & Plan (03/13/2019 12:15 PM EDT): High in office here today but less high than last time. As per pt, her BP is usually in 130s-140s when sees her speech and hearing director. I have encouraged her to find her BP cuff again. Will order BMP but pt may not have time today to do it. Particularly if her BP is in the 140 systolic or higher range, would possibly increase amlodipine to 10 mg/day (unless pt is already taking 10 mg/day, she was not sure). Pt will see Dr Foley later this week. Assessment & Plan (01/30/2019 6:40 PM EDT): Does not appear sufficiently controlled. Will add chlorthalidone 12.5 mg/day to her current regimen. Have advised follow up BMP in 7-10 days by her PCP (particularly to re-assess serum K, BUN/Crea). Actinic keratosis 03/30/2013 Verruca vulgaris 09/28/2012 Seborrheic keratosis 09/28/2012 Encounters Date Type Department Care Team Description 03/10/2024 Transcribe Orders eD Incoming Referrals [phone] Sukh Daniel, NIRAV Generalized skin lesions; Changing skin lesion from Last 3 Months Immunizations Name Administration Dates Next Due Influenza Vaccine, Whole 06/28/2005 Moderna Covid-19 Monovalent 12Yr+ (Casino Enforcement Agent 100mcg) 07/02/2021,10/10/2020,09/11/2020 TD Adult 10/09/2003 Family History Medical History Relation Comments Colorectal Cancer Daughter 1 Myocardial Infarction Daughter 2 Pancreatic Cancer Father Breast Cancer Mother Relation Status Comments Brother Alive Daughter 1 Alive Daughter 2 Alive Father Mother Social History Tobacco Use Types Packs/Day Years Used Date Smoking Tobacco: Never Smokeless Tobacco: Never Alcohol Use Standard Drinks/Week Comments Yes 0 (1 standard drink = 0.6 oz pur e alcohol) Social Sex and Gender Information Value Date Recorded Sex Assigned at Not on file Gender Identity Not on file Sexual Orientation Not on file Last Filed Vital Signs Vital Sign Reading Time Taken Comments Blood Pressure 132/60 12/16/2023 9:37 AM EDT Pulse 59 12/16/2023 9:37 AM EDT Temperature 36.7 ??C (98.1 ??F) 06/09/2022 10:55 AM E DT Respiratory Rate 16 06/09/2022 10:55 AM EDT Oxygen Saturation 97% 12/16/2023 9:37 AM EDT Inhaled Oxygen Concentration - - Weight 64.4 kg (142 lb) 10/27/2023 1:36 PM EDT Height 154.9 cm (5' 1) 10/27/2023 1:36 PM EDT Body Mass Index 26.83 10/27/2023 1:36 PM EDT Plan of Treatment Health Maintenance Due Date Last Done Comments Pneumoccocal Vaccine: 65+ (1 of 2 - PCV) 01[birth year]01/1942 Tdap adult 1956 Zoster vaccine (1 of 2) 01/01/1988 Bone Density Scan 2002 Tetanus vaccine 10/09/2013 10/09/2003 Covid-19 Vaccine ( season) 2023 07/02/2021, 10/10/2020, 09/11/2020 Influenza (Flu) vaccine (1 o f 1 - Influenza standard series) 04/15/2024 06/28/2005 Goals Goal Patient Goal Type Associated Problems Recent Progress Patient-Stated? Author LDL CALC < 70 Result Component No Michael Mckinnon, [facility] Medical Devices Implanted Type Area Engineering Clerk Device Identifier Shelf Expiration Date Model / Serial / Lot Cable,Júnior,Ss ,38in ([id number]) - [id number] Implanted:Qty : 4 on 07/24/2015 by Tavon Chan MD at [facility] IMPLANTS N/A: Sternum [employer] - [id number] 05/26/2020 [id number] / / [id number] Procedures Procedure Name Priority Date/Time Associated Diagnosis Comments LAB SCAN 02/27/2024 12:00 AM EDT from Last 3 Months Results * Scan Doc: Lab (02/27/2024 12:00 AM EDT) Narrative 02/27/2024 12:00 AM EDT Ordered by an unspecified provider. Scanning Provider MEDIA MGR SCAN EXT O RDR/RSLT from Last 3 Months Advance Directives Documents on File Type Date Recorded Patient Hydraulic Corrugating Machine Operator Expl anation Advance Directives and Livin g Will 10/14/2010 8:58 AM * Attempt Cardiopulmonary Resuscitation - Inpatient (Latest Code Status on File) Date Activated Date Inactivated Comments 06/04/2022 8:14 PM 06/09/2022 3:20 PM Question Answer Comments Code Status decision made by: Patient * Full Code Date Activated Date Inactivated Comments 07/24/2015 4:08 PM 07/29/2015 1:50 PM Question Answer Comments Does patient have capacity to make decision: Yes * Full Code Date Activated Date Inactivated Comments 07/24/2015 9:14 AM 07/24/2015 4:02 PM Question Answer Comments Does patient have capacity to make decision: Yes * Full Code Date Activated Date Inactivated Comments 07/23/2015 2:54 PM 07/24/2015 9:14 AM Question Answer Comments Does patient have capacity to make decision: Yes * Full Code Date Activated Date Inactivated Comments 07/01/2015 8:17 PM 07/02/2015 4:14 PM Question Answer Comments Does patient have capacity to make decision: Yes Care Teams Long Term Care Administrator Relationship Specialty Start Date End Date Sukh Daniel DNP [address] [place] [id number] PCP - General Family Medicine 09/19/23
--- OUTSIDE RECORDS SUMMARY | 2024-03-29 03:32 | XMS_ITS | Encounter Summary ---
[place] [address] Care Team Providers Care Masking Machine Feeder Name Role Phone Sukh Daniel DNP Primary Care Provider Encounter Details Date Type Department Care Team (Latest Contact Info) Description 12/16/2023 Travel Social History Tobacco Use Types Packs/Day Years Used Date Smoking Tobacco: Never Smokeless Tobacco: Never Alcohol Use Standard Drinks/Week Comments Yes 0 (1 standard drink = 0.6 oz pur e alcohol) Social Sex and Gender Information Value Date Recorded Sex Assigned at Not on file Gender Identity Not on file Sexual Orientation Not on file documented as of this encounter Plan of Treatment Not on file documented as of this encounter Goals Goal Patient Goal Type Associated Problems Recent Progress Patient-Stated? Author LDL CALC < 70 Result Component No Michael Mckinnon, [facility] documented as of this encounter Visit Diagnoses Not on filedocumented in this encounter Care Teams Masking Machine Feeder Relationship Specialty Start Date End Date Sukh Daniel DNP [address] [place] [id number] PCP - General Family Medicine 09/19/23 documented as of this encounter
--- OUTSIDE RECORDS SUMMARY | 2024-03-29 03:33 | XMS_ITS | Encounter Summary ---
[place] [address] Care Team Providers Care Film Color Tester Name Role Phone Andrew Novak APRN Primary Care Provider +1- [phone] Reason for Visit * Reason Comments Medication Management Encounter Details Date Type Department Care Team ([facility] st Contact Info) Description 08/06/2022 Specialty [place] [phone] Dirk Batres [facility] Social History Tobacco Use Types Packs/Day Years Used Date Smoking Tobacco: Never Smokeless Tobacco: Never Alcohol Use Standard Drinks/Week Comments Yes 0 (1 standard drink = 0.6 oz pur e alcohol) Social Sex and Gender Information Value Date Recorded Sex Assigned at Not on file Gender Identity Not on file Sexual Orientation Not on file documented as of this encounter Progress Notes * Dirk Batres RPH - 08/06/2022 1:38 PM EST Clinical Management Plan: Adherence Specialty Pharmacy Consultation; Dirk Batres RPH Comprehensive Medication Management (CMM) Ginger Amador [facility] has made numerous unsuccessful attempts to contact patient for refill of PRALUENT. Clinic is being notified due to the potential for a gap in treatment as outlined below. Medication Regimen: PRALUENT 75 MG/ML - 1 PEN SC EVERY 21 DAYS Day Supply: 84 Last patient reported due date: 06/09/2022 Thus, would have needed refill for dose due on 07/21/2022. Based on current care plan, patient may have missed one dose. - Specialty Pharmacy will continue to reach out to patient to provide refill of medication at this time. If patient contacts office, please relay need to contact the [facility] at . Dirk Batres RPH 08/06/22 1:39 PM documented in this encounter Plan of Treatment Not on file documented as of this encounter Goals Goal Patient Goal Type Associated Problems Recent Progress Patient-Stated? Author LDL CALC < 70 Result Component No Michael Mckinnon RPH documented as of this encounter Visit Diagnoses Not on filedocumented in this encounter Care Teams Film Color Tester Relationship Specialty Start Date End Date Andrew Novak APRN [address] [place] [address] PCP - General Family Medicine 08/15/20 09/18/23 documented as of this encounter
--- OUTSIDE RECORDS SUMMARY | 2024-03-29 03:33 | XMS_ITS | Encounter Summary ---
[place] [address] Care Team Providers Care Port Captain Name Role Phone Sukh Daniel DNP Primary Care Provider Encounter Details Date Type Department Care Team (Latest Contact Info) Description 11/07/2023 Travel Social History Tobacco Use Types Packs/Day [...] < 70 Result Component No Michael Mckinnon, [facility] documented as of this encounter Visit Diagnoses Not on filedocumented in this encounter Care Teams Port Captain Relationship Specialty Start Date End Date Sukh Daniel DNP [address] [place] [id number] PCP - General Family Medicine 09/19/23 documented as of this encounter
--- OUTSIDE RECORDS SUMMARY | 2024-03-29 03:33 | XMS_ITS | Encounter Summary ---
[place] [address] Care Team Providers Care Mortarman Name Role Phone Andrew Novak APRN Primary Care Provider [phone]- [phone] Reason for Visit * Reason Comments Medication Management Encounter Details Date Type Department Care Team ([facility] st Contact Info) Description 12/22/2022 Specialty [place] [phone] Dirk Batres RPH Social History Tobacco Use Types Packs/Day Years [...] Progress Notes * Dirk Batres RPH - 12/22/2022 7:55 AM EDT Specialty Pharmacy Consultation; Dirk Batres RPH Comprehensive Medication Management (CMM): Specialty Consult, Opt Out Ginger Amador Diagnosis: hyperlipidemia Therapy Start Date: restart ~11/05/2022 Contact in person or via telephone: unable to reach patient after multiple attempts Ms. Ginger Amador is a 86 y.o. (1935) female who was contacted in regard to specialty medication. Spoke with patient regarding Praluent. A review of the medication therapy was performed. The medication was refilled as scheduled, and all medication related questions and concerns were addressed. The specialty pharmacy staff will follow up with the patient 8-10 days prior to next refill. Is the patient willing to proceed with the Clinical Assessment? No Summary and Recommendations: We have been unable to reach the patient after multiple attempts for the 1 month consultation of the Praluent. We will reach out to her next for the refill or as needed. Economic Assessment: Patient is agreeable to medication copay: Yes Copay Amount: 0 Day Supply: 28 Date Needed: ~12/10 Therapy Assessment: Appropriate Therapy: Yes Current Medication Dosing/Route/Frequency: Praluent 75 mg/ml 1 pen sc every 21 days Additional equipment/supplies required: no Care Plan Reviewed and Approved by Pharmacist : Yes Problem List: Patient Active Problem List Diagnosis Code ??? Verruca vulgaris B07.9 ??? Seborrheic keratosis L82.1 ??? Actinic keratosis L57.0 ??? CAD (coronary artery disease) I25.10 ??? Hypertension I10 ??? 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 Asthma J45.909 ??? LUNA (dyspnea on exertion) R06.09 ??? Muscle cramps R25.2 ??? NSTEMI (non-ST elevated myocardial infarction) I21.4 ??? Hypertensive emergency I16.1 ??? Frequent falls R29.6 ??? Wound of left leg S81.802A ??? HLD (hyperlipidemia) E78.5 Medications Reviewed: Yes Medications reconciled: No Allergies Reviewed:Yes Allergies reconciled: No Pharmacist follow-up needed: No Informed patient of specialty pharmacy services: Yes (Optional) Patient unenrolls from routine specialty pharmacy services (Y/N): No (Optional) If yes, services unenrolled from: Welcome Packet and Rights and Responsibilities: Patient provided welcome packet/rights and responsibilities: Yes Date Confirmed: 01/18/19 -Patient is aware a licensed pharmacist is available 24 hours a day, 7 days a week to discuss medication-related questions or concerns: Yes -Patient verbalizes understanding of the common side effect profile of their medication. The patient is able to call 911 or seek urgent care if signs/symptoms of allergy or harmful adverse reactions occur: Yes Patient understands no changes to current drug regimen were made at the appointment and that the pharmacist is providing recommendations (summary located at top of note) for provider review and follow up. Dirk Batres RPH 12/22/22 7:58 AM documented in this encounter Plan of Treatment Not on file documented as of this encounter Goals Goal Patient Goal Type Associated Problems Recent Progress Patient-Stated? Author LDL CALC < 70 Result Component No Michael Mckinnon RPH documented as of this encounter Visit Diagnoses Not on filedocumented in this encounter Care Teams Mortarman Relationship Specialty Start Date End Date Andrew Novak APRN [address] [place] [address] PCP - General Family Medicine 08/15/20 09/18/23 documented as of this encounter
--- OUTSIDE RECORDS SUMMARY | 2024-03-29 03:33 | XMS_ITS | Encounter Summary ---
[place] [address] Care Team Providers Care Correctional Supervisor Lieutenant Name Role Phone Andrew Novak APRN Primary Care Provider +1- [phone] Encounter Details Date Type Department Care Team (Latest Contact Info) Description 10/28/2022 Travel Social History Tobacco Use Types Packs/Day [...] < 70 Result Component No Michael Mckinnon, [facility] documented as of this encounter Visit Diagnoses Not on filedocumented in this encounter Care Teams Correctional Supervisor Lieutenant Relationship Specialty Start Date End Date Andrew Novak APRN [address] [place] [address] PCP - General Family Medicine 08/15/20 09/18/23 documented as of this encounter
--- OUTSIDE RECORDS SUMMARY | 2024-03-29 03:33 | XMS_ITS | Encounter Summary ---
[place] [address] Care Team Providers Care Check Scaler Name Role Phone Andrew Novak APRN Primary Care Provider +1- [phone] Reason for Visit * Reason Comments Medication Management Encounter Details Date Type Department Care Team ([facility] Contact Info) Description 11/01/2022 Specialty [place] [phone] Dirk Batres RPH Social History Tobacco Use [...] Progress Notes * Dirk Batres RPH - 11/01/2022 11:10 AM EDT Specialty Pharmacy Consultation; Dirk Batres RPH Comprehensive Medication Management (CMM): Specialty Consult, Opt Out Ginger Amador Diagnosis: hyperlipidemia Therapy Start Date: restart ~11/05/2022 Contact in person or via telephone: phone Ms. Ginger Amador is a 86 y.o. (1935) female who was contacted in regard to specialty medication. Spoke with patient regarding Praluent. A review of the medication therapy was performed. The medication was filled as scheduled, and all medication related questions and concerns were addressed. The specialty pharmacy staff will follow up with the patient 8-10 days prior to next refill. Is the patient willing to proceed with the Clinical Assessment? No Summary and Recommendations: Today, I spoke with Ginger Martin Wilberclaytonlionel for the restart of the Praluent, we lost contact with her aroundJan 2022 and d/cd her from specialty services. She had some phone issues but is back now and will restart her medication once we mail it out to her. She had no questions or concerns about it, since it had been about 2 months so she is aware of how to do the injections. She is aware to reach out to us if she has any questions or concerns. We will reach out to her for the refill and as needed . Economic Assessment: Patient is agreeable to medication copay: Yes Copay Amount: 0 Day Supply: 28 Date Needed: bhavesh Therapy Assessment: Appropriate Therapy: Yes Current Medication Dosing/Route/Frequency: praluent 75 mg /ml - 1 pen SC every 21 days Additional equipment/supplies required: no [...] Reviewed:Yes Allergies reconciled: No Pharmacist follow-up needed: Yes Informed patient of specialty pharmacy services: Yes Welcome Packet and Rights and Responsibilities: Patient [...] review and follow up. Dirk Batres RPH 11/01/22 11:17 AM documented in this encounter Plan of Treatment Not on file documented as of this encounter Goals Goal Patient Goal Type Associated Problems Recent Progress Patient-Stated? Author LDL CALC < 70 Result Component No Michael Mckinnon RPH documented as of this encounter Visit Diagnoses Not on filedocumented in this encounter Care Teams Check Scaler Relationship Specialty Start Date End Date Andrew Novak APRN [address] [place] [address] PCP - General Family Medicine 08/15/20 09/18/23 documented as of this encounter
--- OUTSIDE RECORDS SUMMARY | 2024-03-29 03:33 | XMS_ITS | Encounter Summary ---
Author Organization [facility] [place] [address] Care Team Providers Care Professor Of English Name Role Phone Sukh Daniel Yoelbenny NIRAV Primary Care Provider [phone] Reason for Referral * Consultation (Routine) - Pending Review Specialty Diagnoses / Procedures Referred By Contac t Referred To Contact [facility] Diagnoses Spondylosis of cervical region without myelopathy or radiculopathy Eval and Treat PT Referral Mariza Olvera MD [facility] [place] [address] [facility] [place] [address] Referral ID Status Reason Start Date Expiration Date Visits Requested Visits Authorized [id number] Pending Review Physiatry Consult 11/07/2023 11/06/2024 1 1 * Consultation (Routine) - Closed Specialty Diagnoses / Procedures Referred By Contac t Referred To Contact [facility] Diagnoses Spondylosis of cervical region without myelopathy or radiculopathy spine 2nd opinion cervical stenosis/myelomalacia/ MRI 08/27/21 in [facility] ( Dr Pulido note from 10/19/21) looking for surgical but not updated MRI Mariza Olvera MD [facility] [place] [address] [facility] [place] [address] Referral ID Status Reason Start Date Expiration Date V isits Requested Visits Authorized [id number] Closed Surgical 11/07/2023 11/06/2024 1 1 Encounter Details Date Type Department Care Team (Late st Contact Info) Description 11/07/2023 9:30 AM EDT [place] [id number] Mariza Olvera MD [facility] [place] [address] Spondylosis of cervical region without myelopathy or radiculopathy; Carpal tunnel syndrome, bilateral Social History Tobacco Use Types Packs/Day Years Used Date Smoking Tobacco: Never Smokeless Tobacco: Never Alcohol Use Standard Drinks/Week Comments Yes 0 (1 standard drink = 0.6 oz pur e alcohol) Social Sex and Gender Information Value Date Recorded Sex Assigned at Not on file Gender Identity Not on file Sexual Orientation Not on file documented as of this encounter Progress Notes * Mariza Olvera MD - 11/07/2023 9:30 AM EDT Images from the original note were not included. [facility] Department of Neurology, Neuromuscular Consultation Service I had the opportunity to evaluate Ginger Amador in the Neurology clinic for the first time today,11/07/23 as a DUARTE from Dr. Snyder (last seen 10/2021). REASON FOR CONSULTATION: Cervical myelopathy with radiculopathy, weakness of both hands. HPI: Ginger Amador is a 87 y.o. female with coronary artery disease for which she underwent bypass procedure about 4 years ago, borderline diabetes, bilateral CTS (s/p release) and asthma who is being seen in [place] from Dr. Snyder for cervical myelopathy. She was evaluated by NSG a couple of years ago and the decision was made not to proceed with surgery. Dr. Snyder. 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 She is living in a senior residence now. 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 She can no longer able to play her Oboe or Bassoon due to difficulties with her hands. Since her last TH visit with Dr. Snyder she reports having progression of weakness. - my hands are practically useless - her stamina is poor - unable to lift objects - she can reach up but can't put a jar of peanut butter onto the shelf) - gait is worsening - if she has anything in her arms, she can't walk She underwent CTS release ~20 year ago that was repeated 15 years ago (outside orthopedist) - this helped a little bit but not significantly. She has a longstanding problem with her hands. She first saw Shazia snyder due to worsening of her hand function. She was also noticing that her right foot was not functioning well. She has developed worsening numbness on the right side of her body. She gets some swelling during the day but also had a vein harvested from the leg for her heart surgery. She endorses numbness from the knee own on the right - she also has trouble lifting the right ankle(ADF). On the left, numbness is localized to the foot. She endorses easy and profound fatigability in her legs. She has numbness in her arms - this is not as numb in her arms as her hands. She has a torn rotatorcuff on the left. She underwent a shoulder and hip injection - this was helpful on the hip but not the shoulder. Pain radiates down her arm into the thumb in a C6 distribution. Her neck is very tight. She does an arthritis exercise program 2X/week. She is working with a PT - working on her neck and the left shoulder and a bit on her legs. This is helping her but not preventing her from progressing. She sees her PT u4aangu. She works out at the gym 2X/week. She manages pain using conservative strategies - including glucosamine and feverfew. Pain, when it occurs, is generally the shoulder and hip. She has been using a walker for ~1 year.When not using a walker, she uses a cane. No falls or near falls since Xmas Clemencia. This will occur when she gets tired and she will catch her right toe. Relevant diagnostic Tests and Imaging: I independently reviewed the MRI of the cervical spine from 2021. Per my independent review, the findings are consistent with severe, multilevel canal stenosis with associated T2 signal abnormalitiesat C3-4 and C5-6; associated with severe bilateral foraminal stenosis and multiple levels. I also reviewed the electrodiagnostic study performed 08/18/2021. This revealed multifocal changes with evidence for entrapment of the median nerves at both wrists in addition to motor predominant changes in the legs suspicious for motor predominant neuropathy or lumbar polyradiculopathy. I reviewed notes from Dr. Snyder Past Medical History: Past Medical History: Diagnosis Date Asthma Coronary artery disease Hypertension Lumbar radiculopathy Median nerve neuropathy Right foot drop Statin intolerance Ulnar nerve neuropathy Past surgical history: Past Surgical History: Procedure Laterality Date CARPAL TUNNEL RELEASE HYSTERECTOMY, TOTAL ABDOMINAL KNEE SURGERY PRO CABG, ARTERIAL, TWO N/A 07/24/2015 @CABG, USING 2 CORONARY ARTERIAL GRAFTS performed by Tavon Alves MD at [facility] MAIN OR PRO CABG, ARTERY-VEIN, TWO N/A 07/24/2015 @CABG, TWO VENOUS GRAFTS & ARTERIAL GRAFT performed by Tavon Alves MD at [facility] MAIN OR PRO ENDOSCOPY W/VIDEO-ASST VEIN HARVEST, CABG N/A 07/24/2015 ENDOSCOPIC HARVEST VEIN(S) FOR CABG performed by Tavon Alves MD at [facility] MAIN OR TONSILLECTOMY Medications: NOTE THAT SHE IS TAKING ASA 81 MG QD Your Medications Accurate as of November 07, 2023 10:29 AM. If you have any questions, ask your nurse or doctor. Continued medications, unchanged Dose Details alirocumab 75 mg/mL Pen Injector Commonly known as: Praluent Pen Inject 1 mL subcutaneously every 21 days. 75 mg Quantity: 2 mL Refills: 3 amLODIPine 10 mg tablet Commonly known as: Norvasc Take 1 tablet by mouth daily. 10 mg Quantity: 90 tablet Refills: 3 CALCIUM ORAL Take 1 tablet by mouth daily. 1 tablet Refills: 0 cholecalciferol (Vitamin D3) 10 mcg (400 unit) Capsule Take by mouth. Indications: one daily Refills: 0 CO Q-10 ORAL Take by mouth. Refills: 0 Cod Liver Oil Oil Take 1 Dose by mouth. 1 Dose Refills: 0 ezetimibe 10 mg tablet Commonly known as: Zetia Take 1 tablet by mouth daily. 10 mg Quantity: 90 tablet Refills: 3 FEVERFEW ORAL Take 1 tablet by mouth daily. 1 tablet Refills: 0 fluticasone propion-salmeteroL 250-50 mcg/dose Disk with Device Commonly known as: ADVAIR Inhale 1 puff into the lungs 2 times daily. 1 puff Refills: 0 GLUCOSAMINE MSM ORAL Take 500 mg by mouth as needed. 500 mg Refills: 0 nitroGLYcerin 0.4 mg sublingual tablet Commonly known as: Nitrostat Place 1 tablet under the tongue every 5 minutes as needed for Chest pain. 0.4 mg Quantity: 90 tablet Refills: 12 STOPPED Medications aspirin EC 81 mg EC (DR) tablet Stopped by: MARIZA OLVERA MD Allergies: Allergies Allergen Reactions Doxycycline Other Reaction(s): rash/hives Bacitracin Cortisone Ingredient in shot caused reaction Gabapentin Other (See Comments) Terral like a zombie Gramicidin D Lidocaine Neomycin Sulfate Neosporin [Hydrocortisone] Polymyxin B Polymyxin B Sulfate Regnnsd-Sen-Ajj Reductase Inhibitors Other (See Comments) Muscle soreness/weakness, fatigue Sulfa (Sulfonamide Antibiotics) Caffeine Other Reaction(s): HOT FLASHES Gluten Diarrhea Potato Family history: Family History Problem Relation Age of Onset Colorectal Cancer Daughter Breast Cancer Mother 52 Pancreatic Cancer Father 78 Myocardial Infarction Daughter 50 Social history: Social History Socioeconomic History Marital status: Spouse name: Not on file Number of children: Not on file Years of education: Not on file Highest education level: Not on file Occupational History Not on file Tobacco Use Smoking status: Never Smokeless tobacco: Never Vaping Use Vaping Use: Never used Substance and Sexual Activity Alcohol use: Yes Comment: Social Drug use: No Sexual activity: Not on file Comment: deferred Other Topics Concern Not on file Social History Narrative Lives alone - 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 She has 3 children all daughters and 4 grandchildren 2 girls and 2 boys. 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 She enjoys the bed and breakfast, [place],reading. 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 She is using a rolling walker. Extremities: no edema, no foot or skeletal deformities Mental status: The patient is alert and calm with MS intact to detailed questioning regarding her history. her speech and language is intact to normal conversation and examination commands; speech fluent. her attention and concentration allow for a full evaluation without evidence for deficit. Short- term and long-term memory are normal. Cranial nerves: EOMI without reported diplopia, no nystagmus. Facial movements are normal. There isno eyelid myotonia or Tisha's twitch. Hearing is normal to finger rub. Shoulder shrug and head movements are normal although head movements are noted to be stiff and somewhat restricted. Tongue protrudes in the midline and shows no atrophy or fasciculations. Facial sensation intact. No evidence of dysphonia or hoarseness of voice. Motor: NE NF SA EE EF WE WF FA FF Corazon Right 4 5 4+ 5- 5 5 5- 4+ 5 4+ Left 4 5 GW4 4+ 5- 5 4+ 4+ 5 5- HF HE KE KF HAB HADD ADF APF I E Right GW4+ nt 5 4+ nt nt 4 5- 4 4 Left 5 nt 5 5 nt nt 5 5 5 5 There is interosseous atrophy or fasciculations. There is no myoclonus, tremor, change in tone, or drift. Sensory: Vibration: Ltoe nt Rtoe nt LMM 3 RMM 4 Lknee 0 Rknee 0 LDIP2 8 RDIP2 7 LDIP5 nt RDIP5 8 Pin: median and ?C6 bilaterally; distal predominance on the left; bandlike sensation on the left Cooled instrument: Heated instrument: Proprioception: preserved distally and proximally Coordination: Intact with no evidence of dysmetria, dysarthria or tremor. Vszvwf-qm-vbmy test and rapid rhythmic movements of upper and lower extremities are normal. Gait and station: Able to rise from a seated position. Stance demonstrates camptocormia; gait stiffness; able to rise on toes but not on heels - she was unable to walk on toes or heels. Romberg mildly positive. Tendon reflexes: Arc Right Left Comments Biceps tendon C5-C6 2 1+ No spread Brachioradialis tendon C5-C6 1+ 1+ Triceps tendon C6-C7 2 2 Finger flexor (Chuck) C8-T1 abs abs Patellar ligament L3-L4 1+ 2 Plantar (Babinski) L5-S1 mute mute Achilles tendon S1-S2 2 1 No jaw jerk, no clonus. Assessment: Ginger Amador is a 87 y.o. female who presents for reevaluation and transfer from Dr. 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 She reports progression of functional changes since her last visit with Dr. Snyder in 2021. In particular, more difficulties with proximal anddistal upper extremity strength, stiffness, and gait changes and balance difficulties. Her presentation today is to determine whether this is a reflection of worsening neuropathy and to better understand her prognosis over time. We discussed the multi factorial nature of particularly her balance difficulties. My sense is that likely her cervical myelopathy is causing most functional alteration with more gait stiffness and upper extremity weakness and sensation loss. I suspect the left shoulder pain she is experiencing may have a contribution from a left-sided radicular component probably at the C6 level. We talked about management of this being predominantly through physical therapy given pain is not prominent and she remains reluctant to consider a surgical option. While I would agree that a surgical option is undesirable, given she has experienced functional decline since her previous evaluation with Dr. Pulido, I t hink it is reasonable to obtain a second opinion. Regardless, I would like her to get expertise from the spine clinic regarding most appropriate PT. There is also contribution from her generalized neuropathy as well as lumbar spine disease. Her clinical exam does not suggest significant contribution from a neuropathic component but I think this could be very difficult to assess due to concomitant lumbar and cervical spine disease. The most accurate reflection of whether she has changes in her neuropathy will be repeat electrodiagnostic study with focus on nerve conductions. We discussed the followin. Reevaluation through spine center for second opinion regarding surgical management; I would agree that this would be to prevent progression and should be considered very carefully. However, given she endorses progression of functional change, this may need to be reconsidered. I have requested a second opinion through the spine clinic 2. Spine specific PT 3. Discussed orthotics referral for right foot drop - she would like to wait until spine assessment 4. Repeat electrodiagnostic study to evaluate for progression and neuropathy. Plan: Orders Placed This Encounter Procedures Referral to Spine Center Referral to Spine Center Follow up: for NCS/EMG. TH follow up after NCS. MARIZA OLVERA I spent 60 minutes in face-face time with the patient, with 12 minutes spent in same day documentation, ordering testing/drugs, coordination of care, chart and test review. documented in this encounter Plan of Treatment Scheduled Referrals Name Type Priority Associated Diagnoses Orde r Schedule Referral to Spine Center Outpatient Referral Routine Spondylosis of cervical region without myelopathy or radiculopathy Ordered: 11/07/2023 Referral to Spine Center Outpatient Referral Routine Spondylosis of cervical region without myelopathy or radiculopathy Ordered: 11/07/2023 documented as of this encounter Goals Goal Patient Goal Type Associated Problems Recent Progress Patient-Stated? Author LDL CALC < 70 Result Component No Michael Mckinnon, [facility] documented as of this encounter Visit Diagnoses Diagnosis Spondylosis of cervical region without myelopathy or radiculopathy Cervical spondylosis without myelopathy Carpal tunnel syndrome, bilateral Carpal tunnel syndrome documented in this encounter Care Teams Professor Of English Relationship Specialty Start Date End Date Sukh Daniel DNP [address] [place] [id number] PCP - General Family Medicine 09/19/23 documented as of this encounter
--- OUTSIDE RECORDS SUMMARY | 2024-03-29 03:33 | XMS_ITS | Encounter Summary ---
Author Organization [facility] [place] [address] Care Team Providers Care Auto Headlight Mechanic Name Role Phone Andrew Novak APRN Primary Care Provider [phone] Reason for Visit * Reason Onset Date Comments No Show 07/13/2022 Encounter Details Date Type Department Care Team (Late st Contact Info) Description 07/13/2022 Telephone Cardiology at [address] [address] Anisha Jung MD [facility] [place] [address] No Show Social History Tobacco Use Types Packs/Day Years Used Date Smoking Tobacco: Never Smokeless Tobacco: Never Alcohol Use Standard Drinks/Week Comments Yes 0 (1 standard drink = 0.6 oz pur e alcohol) Social Sex and Gender Information Value Date Recorded Sex Assigned at Not on file Gender Identity Not on file Sexual Orientation Not on file documented as of this encounter Miscellaneous Notes * Telephone Encounter - Anisha Jung MD - 07/13/2022 5:58 PM EST ss documented in this encounter Plan of Treatment Not on file documented as of this encounter Goals Goal Patient Goal Type Associated Problems Recent Progress Patient-Stated? Author LDL CALC < 70 Result Component No Michael Mckinnon, [facility] documented as of this encounter Visit Diagnoses Not on filedocumented in this encounter Care Teams Auto Headlight Mechanic Relationship Specialty Start Date End Date Andrew Novak APRN [address] [place] [address] PCP - General Family Medicine 08/15/20 09/18/23 documented as of this encounter
--- OUTSIDE RECORDS SUMMARY | 2024-03-29 03:33 | XMS_ITS | Encounter Summary ---
[facility] [place] [address] Care Team Providers Care Conference Planning Manager Name Role Phone Andrew Novak APRN Primary Care Provider +1- [phone] Encounter Details Date Type Department Care Team (Latest Contact Info) Description 10/28/2022 2:30 PM EDT Office Visit Cardiology at [address] [phone] Dean Tilley MD [facility] [place] [address] Status post coronary artery bypass grafting; Hyperlipidemia, unspecified hyperlipidemia type; LUNA (dyspnea on exertion); Primary hypertension Social History Tobacco Use Types Packs/Day Years Used Date Smoking Tobacco: Never Smokeless Tobacco: Never Alcohol Use Standard Drinks/Week Comments Yes 0 (1 standard drink = 0.6 oz pur e alcohol) Social Sex and Gender Information Value Date Recorded Sex Assigned at Not on file Gender Identity Not on file Sexual Orientation Not on file documented as of this encounter Last Filed Vital Signs Vital Sign Reading Time Taken Comments Blood Pressure 172/47 10/28/2022 2:44 PM EDT Pulse 59 10/28/2022 2:44 PM EDT Temperature - - Respiratory Rate - - Oxygen Saturation 99% 10/28/2022 2:44 PM EDT Inhaled Oxygen Concentration - - Weight 67.1 kg (148 lb) 10/28/2022 2:44 PM EDT r eported Height - - Body Mass Index 27.96 05/04/2022 8:52 AM EDT documented in this encounter Progress Notes * Dean Tilley MD - 10/28/2022 2:30 PM EDT Images from the original note were not included. Formerly [facility] [place] [address] Subjective: Patient ID: Ginger Amador is a 86 y.o. female. This is a follow up after last visit with me 03/13/[address] Lizama last time 05/04/2022. Patient Active Problem List Diagnosis ??? 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 10/11/2018 Nuclear stress test at [facility] to 6.5 METS showed predominantly fixed defect in the basal tomid lateral wall, LVEF 59%. 12/19/2018 Echocardiogram showed asymetrical septal thickening, nl LVEF, evidence for diastolic dysfunction with increased filling pressure, aortic valve sclerosis. 05/2022 LHC: non-obstructive ??? CAD (coronary artery disease) ??? Hypertension ??? HLD (hyperlipidemia) ??? Wound of left leg ??? Hypertensive emergency ??? Frequent falls ??? NSTEMI (non-ST elevated myocardial infarction) ??? LUNA (dyspnea on exertion) ??? Muscle cramps ??? Asthma ??? Actinic keratosis ??? Verruca vulgaris ??? Seborrheic keratosis 05/2022 Admitted here after fall, she thinks she may have blacked out for a moment, a coronary angiogram showed non-obstructive CAD. She had zio patch monitor after that admission. BP at home has been 130-145 (rarely 160-170), diastolic usually below 60 mmHg. Review of Systems 03/12/2019 Cardio[facility] Pre Appointment Symptom Review Angina (chest discomfort) Frequency: None Shortness of breath: Occurs with minor activity during the day Palpitations (skipped beats): No Leg swelling: No Dizziness/light headedness: Yes Loss of consciousness: No Difficulty lying flat (because of breathing): No Chills: No Fatigue: Yes Fever: No Unintended weight change: No Nosebleeds: No Difficulty swallowing: No Visual disturbances: No Frequent cough: No Wheezing: Yes Snoring: No Abdominal pain: No Diarrhea: No Blood in bowel movement: No Black, tarry bowel movement: No Nausea/vomiting: No Heat/cold intolerance: No Problems urinating: No Joint pains: No Muscle pain: Yes Rash: No Weakness/numbness: Yes Speech problems: No Easy bruising/bleeding: Yes Depression: No Anxiety: No Poor sleep: No Multiple values from one day are sorted in reverse-chronological order Family History Problem Relation Age of Onset ??? Colorectal Cancer Daughter ??? Breast Cancer Mother 52 ??? Pancreatic Cancer Father 78 ??? 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 She has 3 children all daughters and 4 grandchildren 2 girls and 2 boys. 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 She enjoys the bed and breakfast, [place],reading. 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 Smoking status: Never ??? Smokeless tobacco: Never Substance Use Topics ??? Alcohol use: Yes Comment: Social Outpatient Medications Marked as Taking for the 10/28/22 encounter (Office Visit) with Dean Tilley MD Medication Sig Dispense Refill ??? amLODIPine (Norvasc) 10 mg Tablet Take 1 tablet by mouth daily. 90 tablet 3 ??? ubidecarenone (CO Q-10 ORAL) Take by mouth. ??? nitroGLYcerin (Nitrostat) 0.4 mg Tablet, Sublingual Place 1 tablet under the tongue every 5 minutes as needed for Chest pain. 90 tablet 12 ??? GLUCOSAMINE/METHYLSULFONYLMETH (GLUCOSAMINE MSM ORAL) Take 500 mg by mouth as needed. ??? fluticasone-salmeterol (ADVAIR) 250-50 mcg/dose Disk with Device Inhale 1 puff into the lungs 2times daily. Objective: BP 172/47 (BP Location (NBP): Left arm, Patient Position: Sitting) Pulse 59 Wt 67.1 kg (148 lb)Comment: reported SpO2 99% BMI 27.96 kg/m?? Physical Exam Constitutional: Appearance: She is well-developed. HENT: Head: Normocephalic and atraumatic. Eyes: General: No scleral icterus. Neck: Vascular: No JVD. Cardiovascular: Rate and Rhythm: Regular rhythm. Bradycardia present. Heart sounds: Murmur heard. Medium-pitched midsystolic murmur is present with a grade of 2/6 at the upper right sternal border. No friction rub. No gallop. Pulmonary: Effort: Pulmonary effort is normal. Breath sounds: Normal breath sounds. Abdominal: Palpations: Abdomen is soft. Musculoskeletal: Right lower leg: No edema. Left lower leg: No edema. Skin: General: Skin is warm and dry. Findings: No rash. Neurological: Mental Status: She is alert. Psychiatric: Behavior: Behavior normal. No results found for this or any previous visit (from the past 72 hour(s)). Latest Reference Range & Units 07/02/15 07:07 08/27/21 11:54 06/05/22 00:43 10/22/22 10:41 Chol, Total mg/dL 178 111 112 114 232 (H) (E) HDL mg/dL 45 54 54 48 58 (E) Chol/HDL Ratio ratio 4.0 2.1 2.1 2.4 Triglycerides mg/dL 115 94 92 95 87 (E) LDL Cholesterol mg/dL mg/dL 110 (H) 38 40 157 (H) (E) LDL Chol Direct mg/dL 50 (H): Data is abnormally high (E): External lab result Status: Final result ?? Visible to patient: Yes (not seen) ?? Next appt: None ?? Dx: NSTEMI (non-ST elevated myocardial in... ?? 1 Result Note Details Reading Physician Reading Date Result Priority Elizabeth De La Garza [phone] [id number] 06/24/2022 Routine Narrative & Impression [facility] ???Zio Patch??? Ambulatory Cardiac Event Monitor Report ?? Duration of recording - 3 days hours (after removal of artifact) ?? Summary Data ?? Predominant rhythm - sinus rhythm ?? Minimum sinus rate - 44 bpm Maximum sinus rate - 108 bpm ?? Average heart rate - 70 bpm ?? Atrial fibrillation - none ?? Ectopic beats ?? Rare (<1%) atrial premature beats (APC? s), with rare couplets and triplets Rare (<1%) ventricular premature beats (VPC's), with no couplets or triplets ?? Tachyarrhythmias ?? None ?? Bradyarrhythmias ?? No severe or symptomatic bradycardia, significant pauses (>3 seconds) or high grade AV block. ?? Triggered and Patient Diary Events ?? There were 0 triggered and 2 patient diary events: ?? (1) 06/11/22 2:00 PM - pounding, anxious - woke up - artifact makes rhythm uninterpretable (2) 06/12/22 3:30 AM - short of breath, pounding, pain/tingling (in neck or arm), anxious - in bed sinus rhythm at 70 bpm with occasional supraventricular ectopic beats ? Conclusion(s): 1. Recording is limited by artifact, of the ~8 day recording period, only 3 days 8 hours was interpretable 2. Predominant rhythm is sinus rhythm with an average rate of 70 bpm (range 44- 108 bpm) 3. Rare ectopy as detailed above. 4. No sustained or high grade arrhythmias. 5. Two patient reported events, one of which was uninterpretable due to artifact, the other demonstrating sinus rhythm at 70 bpm with SVEs. Assessment and Plan: HLD (hyperlipidemia) Will re-prescribe for her alirocumab (Praluent) 75 mg every 21 days. Status post coronary artery bypass grafting Have suggested to resume taking ASA 81 mg/day. No angina. LUNA (dyspnea on exertion) Has become weaker, less active, no significant SOB anymore with reduced activity, no leg edema. Hypertension Pt does not want any additional BP medication at this time, is afraid of lightheadedness. Will check on next visit. She takes occasional spironolactone 12.5 mg after eating too much salt of feeling swollen. Total time spent on this visit today: 40 minutes. documented in this encounter Miscellaneous Notes * Assessment & Plan Note - Dean Tilley MD - 10/28/2022 3:10 PM EDTAssociated Problem(s): Hypertension Pt does not want any additional BP medication at this time, is afraid of lightheadedness. Will check on next visit. She takes occasional spironolactone 12.5 mg after eating too much salt of feeling swollen. * Assessment & Plan Note - Dean Tilley MD - 10/28/2022 3:09 PM EDTAssociated Problem(s): LUNA (dyspnea on exertion) Has become weaker, less active, no significant SOB anymore with reduced activity, no leg edema. * Assessment & Plan Note - Dean Tilley MD - 10/28/2022 3:08 PM EDTAssociated Problem(s): Status post coronary artery bypass grafting Have suggested to resume taking ASA 81 mg/day. No angina. * Assessment & Plan Note - Dean Tilley MD - 10/28/2022 3:00 PM EDTAssociated Problem(s): HLD (hyperlipidemia) Will re-prescribe for her alirocumab (Praluent) 75 mg every 21 days. documented in this encounter Plan of Treatment Not on file documented as of this encounter Goals Goal Patient Goal Type Associated Problems Recent Progress Patient-Stated? Author LDL CALC < 70 Result Component No Michael Mckinnon, [facility] documented as of this encounter Visit Diagnoses Diagnosis Status post coronary artery bypass grafting Postsurgical aortocoronary bypass status Hyperlipidemia, unspecified hyperlipidemia type LUNA (dyspnea on exertion) Other dyspnea and respiratory abnormality Primary hypertension Unspecified essential hypertension documented in this encounter Care Teams Conference Planning Manager Relationship Specialty Start Date End Date Andrew Novak APRN [address] [place] [address] PCP - General Family Medicine 08/15/20 09/18/23 documented as of this encounter
--- OUTSIDE RECORDS SUMMARY | 2024-03-29 03:33 | XMS_ITS | Encounter Summary ---
[place] [address] Care Team Providers Care Sales Development Executive Name Role Phone Andrew Novak APRN Primary Care Provider +1- [phone] Encounter Details Date Type Department Care Team (Late st Contact Info) Description 02/10/2023 Specialty [place] [phone] Skyler Ortiz, [facility] Social History Tobacco Use Types Packs/Day Years Used Date Smoking Tobacco: Never Smokeless Tobacco: Never Alcohol Use Standard Drinks/Week Comments Yes 0 (1 standard drink = 0.6 oz pur e alcohol) Social Sex and Gender Information Value Date Recorded Sex Assigned at Not on file Gender Identity Not on file Sexual Orientation Not on file documented as of this encounter Progress Notes * Skyler Ortiz - 02/10/2023 9:34 AM EDT Clinical Management Plan: Refill Specialty Pharmacy Consultation; Skyler Ortiz Comprehensive Medication Management (CMM) Ginger Amador Ms. Ginger Amador is a 87 y.o. (1935) female who was contacted in regard to a specialty medication refill reminder. Contact made with patient regarding Praluent. A review of the medication therapy was performed. The medication was refilled as scheduled, and all medication related questions and concerns were addressed. The specialty pharmacy staff will follow up with the patient 5-7 days prior to next refill. Was a change made to the Care Plan: No Allergies and Drug intolerance: Allergies Allergen Reactions Bacitracin Cortisone Ingredient in shot caused reaction Gabapentin Other (See Comments) Imler like a zombie Gramicidin D Ibuprofen Lidocaine Neomycin Sulfate Neosporin [Hydrocortisone] Polymyxin B Polymyxin B Sulfate Tdyylod-Giz-Xgf Reductase Inhibitors Other (See Comments) Muscle soreness/weakness, fatigue Sulfa (Sulfonamide Antibiotics) Medication Reconciliation Discrepancies (compared to [facility] med list) No Specialty Pharmacy Refill Questionnaire More data exists 02/10/2023 Refill Questionnaire What is the name of the specialty medication you are refilling? Praluent 75mg/mL pens Are you taking any new medications? No Any new medical condition? No Any new allergies? No Any new side effects that are bothersome? No What date will you need this fill by? 02/05/2023 Adherence: Any missed doses? No Patient understands no changes to current drug regimen were made. Skyler Ortiz 02/10/23 9:36 AM documented in this encounter Plan of Treatment Not on file documented as of this encounter Goals Goal Patient Goal Type Associated Problems Recent Progress Patient-Stated? Author LDL CALC < 70 Result Component No Michael Mckinnon, [facility] documented as of this encounter Visit Diagnoses Not on filedocumented in this encounter Care Teams Sales Development Executive Relationship Specialty Start Date End Date Andrew Novak APRN [address] [place] [address] PCP - General Family Medicine 08/15/20 09/18/23 documented as of this encounter
--- OUTSIDE RECORDS SUMMARY | 2024-03-29 03:33 | XMS_ITS | Encounter Summary ---
[place] [address] Care Team Providers Care Agricultural Technical Officer Name Role Phone Andrew Novak APRN Primary Care Provider +1- [phone] Encounter Details Date Type Department Care Team (Late st Contact Info) Description 08/20/2022 Abstract Cardiology at [address] [phone] Adrianna Cabello, RN Social History Tobacco Use Types Packs/Day Years [...] < 70 Result Component No Michael Mckinnon, [facility] documented as of this encounter Visit Diagnoses Not on filedocumented in this encounter Care Teams Agricultural Technical Officer Relationship Specialty Start Date End Date Andrew Novak APRN [address] [place] [address] PCP - General Family Medicine 08/15/20 09/18/23 documented as of this encounter
--- OUTSIDE RECORDS SUMMARY | 2024-03-29 03:33 | XMS_ITS | Encounter Summary ---
[place] [address] Care Team Providers Care Nursing Coordinator Name Role Phone Sukh Daniel DNP Primary Care Provider Encounter Details Date Type Department Care Team (Latest Contact Info) Description 12/13/2023 Travel Social History Tobacco Use Types Packs/Day [...] < 70 Result Component No Michael Mckinnon, [facility] documented as of this encounter Visit Diagnoses Not on filedocumented in this encounter Care Teams Nursing Coordinator Relationship Specialty Start Date End Date Sukh Daniel DNP [address] [place] [id number] PCP - General Family Medicine 09/19/23 documented as of this encounter
--- OUTSIDE RECORDS SUMMARY | 2024-03-29 03:33 | XMS_ITS | Encounter Summary ---
[place] [address] Care Team Providers Care Columnist Name Role Phone Andrew Novak APRN Primary Care Provider +1- [phone] Encounter Details Date Type Department Care Team (Late st Contact Info) Description 06/21/2023 Telephone Cardiology at [address] [phone] Nellie Oliva, RN Social History Tobacco Use Types Packs/Day [...] encounter Miscellaneous Notes * Telephone Encounter - Nellie Oliva, RN - 06/21/2023 2:36 PM EST TC to Mrs Amador, and left requesting if she needs any assistance with her Praluent, and requesting follow up, per [facility] Pharmacy, as to whether she is taking this medication, or has stopped. Asked her to call or write [facility], for her convenience. Left , with return phone number for [facility] Cardiology team RN. Nellie Oliva (Jodie), RN, BSN Cardiology Amb[facility] documented in this encounter Plan of Treatment Not on file documented as of this encounter Goals Goal Patient Goal Type Associated Problems Recent Progress Patient-Stated? Author LDL CALC < 70 Result Component No Michael Mckinnon [facility] documented as of this encounter Visit Diagnoses Not on filedocumented in this encounter Care Teams Columnist Relationship Specialty Start Date End Date Andrew Novak, [facility] [address] [place] [address] PCP - General Family Medicine 08/15/20 09/18/23 documented as of this encounter
--- OUTSIDE RECORDS SUMMARY | 2024-03-29 03:33 | XMS_ITS | Encounter Summary ---
[place] [address] Care Team Providers Care Construction Job Cost Estimator Name Role Phone Andrew Novak APRN Primary Care Provider +1- [phone] Reason for Visit * Reason Comments Medication Management Encounter Details Date Type Department Care Team ([facility] st Contact Info) Description 06/17/2023 Specialty Pharmacy [place] [phone] Dirk Batres [facility] Social History Tobacco Use Types Packs/Day Years [...] Progress Notes * Dirk Batres RPH - 06/17/2023 9:03 AM EDT Specialty Pharmacy Consultation; Dirk Batres RPH Comprehensive Medication Management (CMM): Specialty Consult, Intervention Ginger Monacolionel Diagnosis: hyperlipidemia Contact in person or via telephone: phone + [facility] Ms. Ginger Amador is a 87 y.o. (1935) female who was contacted in regard to specialty medication intervention. Left VM for patient regarding Praluent Refill. Specialty Pharmacy Intervention: Intervention Category (Nature of Intervention): Adherence Medication Regimen: Praluent 75 mg/mL 1 pen SC q 21 days Day Supply: 42 Number of doses missed: 2 Last Patient Reported Due Date: 04/16/23 Would have needed refill for dose due on: 06/01/23 Adherence counseling provided: Continued monitoring (unable to tell if patient is adherent at this time) Adherence tools: MPR Prescriber accepted response (Prescriber accept Intervention): (Comment: will loop in provider) Recommendation: Pt to refill the medication. We have tried to reach the pt multiple times via phone + myDH and havebeen unsuccessful. Will loop in clinic for assistance. If unable to reach pt by 06/24, we will d/c pt from specialty pharmacy. Outcome: TBD Dirk Batres RPH 06/17/23 9:06 AM * Dirk Batres RPH - 06/17/2023 9:03 AM EDT Specialty Pharmacy Consultation; Dirk Batres RPH Comprehensive Medication Management (CMM): Specialty Consult, Intervention Ginger Amador Diagnosis: hyperlipidemia Contact in person or via telephone: phone Ms. Ginger Amador is a 87 y.o. (1935) female who was contacted in regard to specialty medication intervention. LVM with patient regarding Praluent refill. Specialty Pharmacy Intervention: Intervention Category (Nature of Intervention): Adherence Medication Regimen: Praluent 75 mg/mL 1 pen SC q 21 days Day Supply: 42 Number of doses missed: 2 Last Patient Reported Due Date: 04/16/23 Would have needed refill for dose due on: 06/01/23 Adherence counseling provided: Continued monitoring (unable to tell if patient is adherent at this time) Adherence tools: MPR Prescriber accepted response (Prescriber accept Intervention): (Comment: will loop in provider) Recommendation: Pt should call the pharmacy to refill the Praluent at earliest convenience as she may be overdue. We will d/c from specialty services and patient can manage refill on own. Outcome: Pt d/c from specialty services. We have left numerous VM and sent myDH messages, and clinic office also tried to reach the patient. We have not been able to reach the patient. Dirk Batres RPH 06/24/23 10:44 AM documented in this encounter Plan of Treatment Not on file documented as of this encounter Goals Goal Patient Goal Type Associated Problems Recent Progress Patient-Stated? Author LDL CALC < 70 Result Component No Michael Mckinnon RPH documented as of this encounter Visit Diagnoses Not on filedocumented in this encounter Care Teams Construction Job Cost Estimator Relationship Specialty Start Date End Date Andrew Novak APRN [address] [place] [address] [address] [facility] [address] [place] [address] PCP - General Family Medicine 08/15/20 09/18/23 documented as of this encounter
--- OUTSIDE RECORDS SUMMARY | 2024-03-29 03:33 | XMS_ITS | Encounter Summary ---
[place] [address] Care Team Providers Care Picker / Packer Name Role Phone Andrew Novak APRN Primary Care Provider +1- [phone] Encounter Details Date Type Department Care Team (Latest Contact Info) Description 10/22/2022 External Results [facility] [address] [place] [address] Provider, His Christine MD None Hyperlipidemia, unspecified hyperlipidemia type; Essential hypertension; Status post coronary artery bypass grafting; Coronary artery disease involving coquille coronary artery of coquille heart without angina pectoris Social History Tobacco Use Types Packs/Day Years [...] < 70 Result Component No Michael Mckinnon, [facility] documented as of this encounter Procedures Procedure Name Priority Date/Time Associated Diagnosis Comments LIPID PANEL (REFLEX DIRECT LDL) Routine 10/22/2022 10:41 AM EST Hyperlipidemia, unspecified hyperlipidemia type Essential hypertension Status post coronary artery bypass grafting Coronary artery disease involving coquille coronary artery of coquille heart without angina pectoris documented in this encounter Results * (ABNORMAL) Lipid Panel (Reflex Direct LDL) (10/22/2022 10:41 AM EST) Cholesterol, Total 232(H) [facility] Triglyceride 87 [facility] HDL Cholesterol 58 [facility] LDL Cholesterol 157(H) [facility] Blood 10/22/2022 10:4 1 AM EST Anisha Jung MD CHEMISTRY ORDERABLES EX[facility]NAL [facility]ACILITY documented in this encounter Visit Diagnoses Diagnosis Hyperlipidemia, unspecified hyperlipidemia type Essential hypertension Unspecified essential hypertension Status post coronary artery bypass grafting Postsurgical aortocoronary bypass status Coronary artery disease involving coquille coronary artery of coquille heart without angina pectoris documented in this encounter Care Teams Picker / Packer Relationship Specialty Start Date End Date Andrew Novak APRN [address] [place] [address] PCP - General Family Medicine 08/15/20 09/18/23 documented as of this encounter
--- OUTSIDE RECORDS SUMMARY | 2024-03-29 03:33 | XMS_ITS | Encounter Summary ---
Author Organization [facility] [place] [address] Care Team Providers Care Manager Credit Collections Name Role Phone Andrew Novak APRN Primary Care Provider +1- [phone] Encounter Details Date Type Department Care Team (Late st Contact Info) Description 09/13/2023 Ancillary Procedure [place] [phone] Andrew Novak APRN [address] [place], [place] [id number] Social History Tobacco Use Types Packs/Day Years [...] Mckinnon RPH documented as of this encounter Procedures Procedure Name Priority Date/Time Associated Diagnosis Comments FILM LIBRARY STORAGE ONLY DX HIP Routine 09/13/2023 12:00 AM EST documented in this encounter Results * Film Library- Storage Only DX Hip (09/13/2023 12:00 AM EST) Narrative [facility] - 09/14/2023 7:29 AM EST This exam is auto-finalizing. It's purpose is for storage only. Andrew Novak APRN IM FILM LIBRARY O RDERABLES [facility] [place], [place] documented in this encounter Visit Diagnoses Not on filedocumented in this encounter Care Teams Manager Credit Collections Relationship Specialty Start Date End Date Andrew Novak APRN [address] [place] [address] [address] [place] [address] PCP - General Family Medicine 08/15/20 09/18/23 documented as of this encounter
--- OUTSIDE RECORDS SUMMARY | 2024-03-29 03:33 | XMS_ITS | Encounter Summary ---
[place] [address] Care Team Providers Care Electronic Warfare Specialist Name Role Phone Andrew Novak APRN Primary Care Provider +1- [phone] Encounter Details Date Type Department Care Team (Late st Contact Info) Description 10/15/2022 Orders Only Cardiology at [address] [address] Anisha Jung MD [facility] [place] [address] Hyperlipidemia, unspecified hyperlipidemia type Social History Tobacco Use Types Packs/Day Years [...] Result Component No Michael Mckinnon, [facility] documented as of this encounter Visit Diagnoses Diagnosis Hyperlipidemia, unspecified hyperlipidemia type documented in this encounter Care Teams Electronic Warfare Specialist Relationship Specialty Start Date End Date Andrew Novak APRN [address] [place] [address] PCP - General Family Medicine 08/15/20 09/18/23 documented as of this encounter
--- OUTSIDE RECORDS SUMMARY | 2024-03-29 03:33 | XMS_ITS | Encounter Summary ---
[place] [address] Care Team Providers Care Sleeve Machine Tender Name Role Phone Sukh Daniel DNP Primary Care Provider Encounter Details Date Type Department Care Team (Latest Contact Info) Description 11/01/2023 Travel Social History Tobacco Use Types Packs/Day [...] 70 Result Component No Michael Mckinnon, [facility] documented as of this encounter Visit Diagnoses Not on filedocumented in this encounter Care Teams Sleeve Machine Tender Relationship Specialty Start Date End Date Sukh Daniel DNP [address] [place] [address] PCP - General Family Medicine 09/19/23 documented as of this encounter
--- OUTSIDE RECORDS SUMMARY | 2024-03-29 03:33 | XMS_ITS | Encounter Summary ---
[place] [address] Care Team Providers Care Electrical Research Engineer Name Role Phone Andrew Novak APRN Primary Care Provider [phone]- [phone] Reason for Visit * Reason Comments Prior Authorization Praluent 75mg/mL aut o-injector Encounter Details Date Type Department Care Team (Late st Contact Info) Description 10/29/2022 Specialty [place] [address] Chula Hinojosa, SINTIA Social History Tobacco Use Types Packs/Day Years Used Date Smoking Tobacco: Never Smokeless Tobacco: Never Alcohol Use Standard Drinks/Week Comments Yes 0 (1 standard drink = 0.6 oz pur e alcohol) Social Sex and Gender Information Value Date Recorded Sex Assigned at Not on file Gender Identity Not on file Sexual Orientation Not on file documented as of this encounter Progress Notes * Chula Hinojosa - 10/29/2022 12:55 PM EDT [facility], Copay Assistance Medication Name: PRALUENT PEN 75 MG/ML SUBCUTANEOUS PEN INJECTOR Copay Assistance/Copay Card: [employer] Name of Assistance Program: [employer] [facility] Amount Provided by Program: $2500 New Copayment: $0 Patient currently enrolled in [employer] [facility], which reduces co-pay from $90 to $0. Chula Hinojosa 10/29/22 1:03 PM [facility], Prior Authorization Approval Medication Name: PRALUENT PEN 75 MG/ML SUBCUTANEOUS PEN INJECTOR Medication ID: [id number] Approval Dates: 08/15/2022 to 08/14/2023 Insurance requirements/notes: None Other Notes: None Case/Reference #: [id number] Approval notification Received via: Telephone Copay: $0 Copay assistance: [employer] Copay Notes: Patient currently enrolled in [employer]cholesterole[employer] [facility]. Insurance mandated Pharmacy: [facility] Fillable at [facility] Specialty Pharmacy: Yes Patient Notified: To be contacted by [facility] for consult Pharmacy staff will be reaching out to the patient to inform them of their medication's approval [facility]. If applicable, a pharmacist will speak with the patient to offer our specialty pharmacy services and to arrange delivery of their medication. Chula Hinojosa 10/29/22 1:03 PM [facility], Medication Prior Authorization Submission Patient: Ginger Amador Patient : 1935 Patient Address: [address] [place] [id number] (home) Medication Name: PRALUENT PEN 75 MG/ML SUBCUTANEOUS PEN INJECTOR Medication ID: [id number] Subscriber Insurance: [employer] Subscriber Insurance Comment: Fax: Physician: BALDO CORDOVA Physician Comment: Sent Via: Previously Sent by Office Torres: Unknown Ref/Case/PA#: [id number] Medication Strength Frequency Requested: Praluent 75mg/mL auto-injector: Inject the contents of onepen (75mg) subcutaneously once every 21 days Qty/Day Supply: New Start: New to Therapy Diagnosis & ICD-10 Code: Coronary artery disease, I25.10 Patient Notified: No Submission Notes: None Chula Hinojosa 10/29/22 1:03 PM * Skyler Ortiz N - 10/29/2022 12:55 PM EDT [facility] [place] Worker Assistance Referral [facility] has looked into assistance for the following patient, but we have not been able to find any copay cards or foundations with available funding for them. A referral has been sent to the [facility] MAP team. The patient is aware that the [facility] team will be reaching out, and we have provided the number to reach [facility] in case they have any further questions. Patient: Ginger Amador : 1935 Medication: PRALUENT PEN 75 MG/ML SUBCUTANEOUS PEN INJECTOR Dosing: Praluent 75mg/mL auto-injector: Inject the contents of one pen (75mg) subcutaneously once every 21 days Insurance: [employer] Medicare Part D?: Yes [place] has been approved, current copay is: $94 Skyler Ortiz 02/10/23 9:38 AM documented in this encounter Plan of Treatment Not on file documented as of this encounter Goals Goal Patient Goal Type Associated Problems Recent Progress Patient-Stated? Author LDL CALC < 70 Result Component No Michael Mckinnon [facility] documented as of this encounter Visit Diagnoses Not on filedocumented in this encounter Care Teams Electrical Research Engineer Relationship Specialty Start Date End Date Andrew Novak APRN [address] [place] [address] PCP - General Family Medicine 08/15/20 09/18/23 documented as of this encounter
--- OUTSIDE RECORDS SUMMARY | 2024-03-29 03:33 | XMS_ITS | Encounter Summary ---
Author Organization [facility] [place] [address] Care Team Providers Care Quarrying Manager Name Role Phone Sukh Daniel DNP Primary Care Provider Reason for Referral * Consultation (Routine) - Authorized Specialty Diagnoses / Procedures Referred By Contac t Referred To Contact Orthopaedics Diagnoses Bursitis of right hip, unspecified bursa Rotator cuff tear arthropathy of right shoulder Deonte Hdz MD [address] [place] [address] Cabrera Vázquez MD [facility] [place] [address] Referral ID Status Reason Start Date Expiration Date Visits Requested Visits Authorized [id number] Authorized Consult, Test & Treat PCP Updated and/or Approved 09/14/2023 09/13/2024 6 6 Encounter Details Date Type Department Care Team (Late st Contact Info) Description 09/19/2023 Transcribe Orders [facility] Incoming Referrals [phone] Sukh Daniel DNP [address] [place] [address] Bursitis of right hip, unspecified bursa; 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
--- OUTSIDE RECORDS SUMMARY | 2024-03-29 03:33 | XMS_ITS | Encounter Summary ---
[place] [address] Care Team Providers Care Necktie Turner Name Role Phone Andrew Novak APRN Primary Care Provider [phone]- [phone] Reason for Visit * Reason Onset Date Comments Medication Refill 11/04/2022 Encounter Details Date Type Department Care Team (Late st Contact Info) Description 11/04/2022 Refill Cardiology at [address] [address] Dean Tilley MD [facility] [place] [address] Medication Refill Social History Tobacco Use Types Packs/Day Years [...] < 70 Result Component No Michael Mckinnon, [facility] documented as of this encounter Visit Diagnoses Diagnosis Hyperlipidemia, unspecified hyperlipidemia type documented in this encounter Care Teams Necktie Turner Relationship Specialty Start Date End Date Andrew Novak APRN [address] [place] [address] PCP - General Family Medicine 08/15/20 09/18/23 documented as of this encounter
--- OUTSIDE RECORDS SUMMARY | 2024-03-29 03:33 | XMS_ITS | Encounter Summary ---
[place] [address] Care Team Providers Care Building Attendant Name Role Phone Sukh Daniel DNP Primary Care Provider Encounter Details Date Type Department Care Team (Latest Contact Info) Description 10/27/2023 Travel Social History Tobacco Use Types Packs/Day [...] < 70 Result Component No Michael Mckinnon, [facility] documented as of this encounter Visit Diagnoses Not on filedocumented in this encounter Care Teams Building Attendant Relationship Specialty Start Date End Date Sukh Daniel DNP [address] [place] [address] PCP - General Family Medicine 09/19/23 documented as of this encounter
--- OUTSIDE RECORDS SUMMARY | 2024-03-29 03:33 | XMS_ITS | Encounter Summary ---
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 2nd opinion cervical stenosis/myelomalacia/ MRI 08/27/21 in [facility] ( Dr Pulido note from 10/19/21) looking for surgical but not updated MRI Mariza Cee MD [facility] [place] [address] [facility] [place] [address] Referral ID Status Reason Start Date Expiration Date V isits Requested Visits Authorized [id number] Closed Surgical 11/07/2023 11/06/2024 1 1 Encounter Details Date Type Department Care Team (Late st Contact Info) Description 12/16/2023 9:45 AM EDT Office Visit [place] [address] Hao Gee MD [facility] [place] [address] Stenosis of cervical spine with myelopathy Social History Tobacco Use Types Packs/Day Years [...] Pulse 59 12/16/2023 9:37 AM EDT Temperature - - Respiratory Rate - - Oxygen Saturation 97% 12/16/2023 9:37 AM EDT Inhaled Oxygen Concentration - - Weight - - Height - - Body Mass Index - - documented in this encounter Progress Notes * Hao Gee MD - 12/16/2023 9:45 AM EDT Subjective: Ginger Amador is a 87 y.o. [id number] female who presents for spine assessment and for Physical Medicine and Rehabilitation consultation, at the request of Mariza Cee MD. Today's appointment was scheduled for second opinion regarding surgery for a known history of cervical myelopathy. I have reviewed the clinical office note of Angelo Pulido MD, dated 10/19/2021. The patient reported having difficulty using her hands. She was noted to have hand intrinsic atrophy, unsteady gait and symptoms of hand numbness and occasional bladder leakage. On physical examination, bilateral hand intrinsic atrophy was noted, right greater than left. Wrist extensors were 5-/[address] Pulido interpreted the patient's electrodiagnostic testing as showing a complex pattern. Cervical MRI demonstrated multilevel spondylosis and central stenosis. Dr. Pulido felt that the patient was demonstrating myelopathic features. A discussion was held regarding potential surgical treatment for cervical laminectomy and possible lateral mass stabilization. The goal would be prevention of further deterioration and maintenance of independence. Dr. Pulido did not feel optimistic, however, about the patient's potential functional outcome, given her advanced hand atrophy. The patient stated that she was not interested in surgery. At present, the patient's main complaint is that she just can't stand up straight. She can stand fully upright with a walker when she begins ambulating, but rapidly assumes a forward flexed position. She reports additional symptoms of generalized bilateral hand weakness, right greater than left, and decreased bilateral hand sensibility. She states that hand dysfunction has been present since age 37 or 42. She was unable to pursue medical evaluation and treatment because of a divorce and her loss of health insurance benefits in her 40s. The patient reports no significant neck pain. She has no upper extremity pain radiation. There is no lower extremity pain or pain radiation and no low back pain. She reports buttock pain on an intermittent basis. Sensory symptoms include numbness and tingling in the hands and feet. The lower extremity symptoms can ascend into the lower legs. She perceives weakness as most prominent in the hands. The lower extremities can become fatigued, but she does not report any focal lower extremity weakness. At times, the right foot can drag when ambulating. The clinical record documents the patient is having a history of right foot drop, however. The patient believes that she has normal bowel and bladder sensation and no bowel incontinence. Shereports intermittent urinary urge incontinence, but occasionally has bladder leakage without being aware of it. The patient ambulates with a 4-wheeled seated walker in the home setting. She states that this works well, in general. She finds that she catches her left foot when ambulating, perhaps three times per week. She has not fallen, however. She prefers using a 3-wheeled walker in the community because it is undercar specialist in weight and more maneuverable through tight spaces. Current treatment: The patient was seen for a single PT treatment with Cabrera Caldwell PT. His evaluation note of 12/13/2023 is reviewed. The patient confirmed that she was not interested in any surgical treatment at that visit. Patient and therapist agreed that she should pursue PT treatment closer to home. She is now treating with [facility]. The patient is reported to have an allergy to corticosteroids. She underwent a left shoulder Toradol injection and right piriformis trigger point injection by Cabrera Vázquez MD on 10/27/2023. I have reviewed the clinical office note of Mariza Cee MD, dated 11/07/2023. The patient was seen for cervical myelopathy after having transferred her care from Chon Snyder MD. The patient reported progressive weakness, worsening gait and right-sided body numbness below the knee. She also reported numbness in left foot. At the time of the visit, the patient reported some pain to the thumb. She had been using a walker for mobility for the past year. Electrodiagnostic testing had been completed on 08/18/2021, showing focal median nerve entrapment at the wrists. There was a question of motor predominant neuropathy versus lumbar polyradiculopathy. Dr. Cee recommended spine PT and spine consultation for second opinion regarding surgery. Additional plans included possible geothermal powerplant mechanic helper referral to address right foot drop and repeat electrodiagnostictesting. Past musculoskeletal history: The patient is status post bilateral total knee arthroplasties. She has a history of carpal tunnel syndrome and is status post bilateral carpal tunnel releases. History also includes osteoarthrosis and rotator cuff tear of left shoulder, rheumatoid arthritis, right hipbursitis and ulnar neuropathy. Past medical history includes coronary artery disease, status post CABG and NSTEMI, hypertension, asthma, hyperlipidemia and statin intolerance. I have independently reviewed the cervical MRI of 08/27/2021. The study demonstrates severe central stenosis from C3-C4 through C6-C7 with multilevel bilateral uncovertebral and facet arthropathy. 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 Review of Systems: Pertinent review of musculoskeletal and neurological systems, as above. Spine Center Response Trends Patient-reported scores: 10/20/2023 9:08 AM [facility] Spine Questionnaire responses PROMIS-10 Physical Health Score 39.8 PROMIS-10 Mental Health Score 48.3 No images are attached to the encounter. Objective: The patient was advised of the clinic pedal assembler policy. She declined to have a pedal assembler during today's evaluation. BP 132/60 (BP Location (NBP): Left arm, Patient Position: Sitting, BP Cuff Sizes: Adult (25-34 cm)) Pulse 59 SpO2 97% The patient is seated comfortably and in no apparent distress. There is marked bilateral hand intrinsic atrophy. This is most pronounced in the first web spaces. Gait with 3 wheeled walker is satisfactorily compensated. Right foot is externally rotated throughout the gait cycle. Bilateral foot clearance is satisfactory. There is no gait ataxia. The patient isable to complete bilateral heel raises with the walker. She cannot perform toe raise on the right. Neck is markedly protracted. Thoracic kyphosis is increased. Right shoulder is elevated in standing. Motor: Hand intrinsics 3/5 right, 3+ left, right wrist extensors 4/5, right shoulder abductors 4-/5. Upper extremity motor exam otherwise 5/5 throughout. Right ankle dorsiflexors marked by overriding ankle eversion and less than full range of motion. Right ankle dorsiflexors 4/5 with these limitations. Right EHL 4-/5. Motor exam otherwise 5/5 for bilateral hip flexors, knee extensors, left ankle dorsiflexors and left EHL. Sensation: Decreased to light touch in right lateral shoulder, right ulnar forearm and, in generalized fashion, throughout right hand. Sensation is decreased to light touch in right lateral leg and, in generalized fashion, throughout right plantar foot. Left lower extremity sensation grossly intact. Straight leg raising: Negative bilaterally. There is no pronator drift. Fine motor skills are impaired in bilateral hands, right greater than left. Esparza's reflex present in bilateral hands. No ankle clonus. Assessment: Encounter Diagnosis Name Primary? Stenosis of cervical spine with myelopathy The patient presents with a known history of cervical myelopathy and multilevel cervical stenosis. She was seen more than two years ago for these issues by Angelo Pulido MD. He discussed cervical decompression with the patient at that time. He is documented as giving her an accurate assessment of thepotential risks involved with such surgery and felt that the patient had a limited prognosis for improved functional outcome. The patient previously declared that she is not interested in surgery and confirms that fact once again with me today. She is particularly concerned about the potential for cognitive dysfunction witha complex, lengthy cervical decompression procedure. The patient states that she would be interested in an in between treatment that does not require surgical decompression. I do not believe that there are any options for this, with respect to her current condition. Her hands are already quite compromised from the cervical myelopathy. There is no indication here for symptomatic treatment, such as cervical epidural steroid injection, as the patient has no radicular pain. I agree with the plans for PT treatment. The patient has the potential to increase the strength of spine extensors and, in so doing, enable her to increase her endurance for upright standing. Dr. Cee has discussed possible referral for fitting with an AFO to address right foot drop. This seems re asonable, on its face, but I question whether the patient has sufficient hand function to be able to adequately manage the standard AFO that she would likely require. The patient should follow-up with Dr. Cee to discuss this further and to consider possible repeat electrodiagnostic testing, if felt to be clinically indicated. The consultation request of Mariza Cee MD is greatly appreciated. Total time spent on date of encounter, including clinical records and radiological review, [id number] evaluation and coordination of care = 56 minutes. Hao Gee MD, MS documented in this encounter Plan of Treatment Not on file documented as of this encounter Goals Goal Patient Goal Type Associated Problems Recent Progress Patient-Stated? Author LDL CALC < 70 Result Component No iMchael Mckinnon, [facility] documented as of this encounter Visit Diagnoses Diagnosis Stenosis of cervical spine with myelopathy documented in this encounter Care Teams Honey Liquefier Relationship Specialty Start Date End Date Sukh Daniel DNP [address] [place] [address] PCP - General Family Medicine 09/19/23 documented as of this encounter
--- OUTSIDE RECORDS SUMMARY | 2024-03-29 03:33 | XMS_ITS | Encounter Summary ---
[place] [address] Care Team Providers Care Litharge Mill Operator Name Role Phone Sukh Daniel DNP Primary Care Provider Encounter Details Date Type Department Care Team (Latest Contact Info) Description 10/20/2023 Travel Social History Tobacco Use Types Packs/Day [...] Result Component No Michael Mckinnon, [facility] documented as of this encounter Visit Diagnoses Not on filedocumented in this encounter Care Teams Litharge Mill Operator Relationship Specialty Start Date End Date Sukh Daniel DNP [address] [place] [address] PCP - General Family Medicine 09/19/23 documented as of this encounter
--- OUTSIDE RECORDS SUMMARY | 2024-03-29 03:33 | XMS_ITS | Encounter Summary ---
[place] [address] Care Team Providers Care Transportation Lead Name Role Phone Andrew Novak APRN Primary Care Provider +1- [phone] Reason for Visit * Reason Comments Medication Management Encounter Details Date Type Department Care Team ([facility] st Contact Info) Description 06/24/2023 Specialty [place] [phone] Dirk Batres Rosalba Social History Tobacco Use Types Packs/Day Years [...] Progress Notes * Dirk Batres RPH - 06/24/2023 10:42 AM EST Clinical Management Plan: Modification of Specialty Services Specialty Pharmacy Consultation; Dirk Batres RPH Comprehensive Medication Management (CMM) Ginger Amador [address] [facility] [address] [facility] [address] Telephone Information: Work Phone Not on file. Is the patient transferring services to a different Specialty Pharmacy, discontinuing the medication, or modifying current Specialty services? Modifying Services (Optional) If modifying Specialty services, patient unenrolls from: Consultations, Refill Management Medication: Praluent Reason for discontinuation or transfer of services: Unable to reach patient Approximate date of discontinuation, modification, or transfer of services: 06/24/2023 Patient's response to therapy: good Summary of services provided by D- Specialty: Benefits investigation, medication access assistance, initial clinical assessment, follow up clinical assessment(s), refill management, care plan reviewprior to dispensing, and 07/03 access to an on-call specialty pharmacist Summary of on-going needs: Refill management, monthly care plan review and 07/03 access to an on-call specialty pharmacist Referral for additional services (if applicable): n/a Is patient aware of referral? N/a Instructions provided to patient about discharge/transfer: yes - LVM Provider aware of discontinuation or transfer: Yes Patient understands no changes to current drug regimen were made at the appointment and that [facility] isproviding recommendations (summary located at top of note) for provider review and follow up. Of note, if transferring to another specialty pharmacy, a copy of patient's medication profile was offered to accepting pharmacy. Dirk Batres RPH 06/24/23 10:43 AM documented in this encounter Plan of Treatment Not on file documented as of this encounter Goals Goal Patient Goal Type Associated Problems Recent Progress Patient-Stated? Author LDL CALC < 70 Result Component No Michael Mckinnon RPH documented as of this encounter Visit Diagnoses Not on filedocumented in this encounter Care Teams Transportation Lead Relationship Specialty Start Date End Date Andrew Novak APRN [address] [place] [address] PCP - General Family Medicine 08/15/20 09/18/23 documented as of this encounter
--- OUTSIDE RECORDS SUMMARY | 2024-03-29 03:33 | XMS_ITS | Encounter Summary ---
[place] [address] Care Team Providers Care Hedis Abstractor Name Role Phone Andrew Novak APRN Primary Care Provider +1- [phone] Encounter Details Date Type Department Care Team (Late st Contact Info) Description 02/11/2023 Notes [place] [phone] Rory ePter Social History Tobacco Use Types Packs/Day Years Used Date Smoking Tobacco: Never Smokeless Tobacco: Never Alcohol Use Standard Drinks/Week Comments Yes 0 (1 standard drink = 0.6 oz pur e alcohol) Social Sex and Gender Information Value Date Recorded Sex Assigned at Not on file Gender Identity Not on file Sexual Orientation Not on file documented as of this encounter Progress Notes * Rory Peter - 02/11/2023 9:05 AM EDT I sent a letter and the application for assistance with PRALUENT to the patient for them to complete, sign and return to the Medication Assistance Program. The MAP office will follow up with the patient in 5 business days to see if the patient has received the application and if they have any questions. I sent the application for assistance with PRALUENT to BALDO CORDOVA MD for their signature and prescription. I will follow through with the remainder of the application once everything is returned to me. documented in this encounter Plan of Treatment Not on file documented as of this encounter Goals Goal Patient Goal Type Associated Problems Recent Progress Patient-Stated? Author LDL CALC < 70 Result Component No Michael Mckinnon, [facility] documented as of this encounter Visit Diagnoses Not on filedocumented in this encounter Care Teams Hedis Abstractor Relationship Specialty Start Date End Date Andrew Novak, V[facility] [address] [place] [address] PCP - General Family Medicine 08/15/20 09/18/23 documented as of this encounter
--- OUTSIDE RECORDS SUMMARY | 2024-03-29 03:33 | XMS_ITS | Encounter Summary ---
Author Organization [facility] Address [facility] [address] [place] [id number] Care Team Providers Care Gauge Machine Operator Name Role Phone Sukh Daniel DNP Primary Care Provider +[phone] Reason for Visit * Reason Comments Establish Care NXR RIGHT HIP BURSIT IS, LEFT SHOULDER OA * Consultation (Routine) - Authorized Specialty Diagnoses / Procedures Referred By Kirk newton Referred To Contact Orthopaedics Diagnoses Bursitis of right hip, unspecified bursa Rotator cuff tear arthropathy of right shoulder Deonte Hdz MD [address] [place] [address] Cabrera Vázquez MD [facility] [place] [address] Referral ID Status Reason Start Date Expiration Date Visits Requested Visits Authorized [id number] Authorized Consult, Test & Treat PCP Updated and/or Approved 09/14/2023 09/13/2024 6 6 Encounter Details Date Type Department Care Team (Latest Contact Info) Description 10/27/2023 1:40 PM EDT Office [place] [phone] Cabrera Vázquez MD [facility] [place] [address] Primary osteoarthritis of left shoulder (Primary Dx); Piriformis syndrome, right Social History Tobacco Use Types Packs/Day Years [...] Sign Reading Time Taken Comments Blood Pressure - - Pulse - - Temperature - - Respiratory Rate - - Oxygen Saturation - - Inhaled Oxygen Concentration - - Weight 64.4 kg (142 lb) 10/27/2023 1:36 PM EDT Height 154.9 cm (5' 1) 10/27/2023 1:36 PM EDT Body Mass Index 26.83 10/27/2023 1:36 PM EDT documented in this encounter Progress Notes * Cabrera Vázquez MD - 10/27/2023 1:40 PM EDT [facility] NEW VISIT NOTE CC: Establish Care (NXR RIGHT HIP BURSITIS, LEFT SHOULDER OA) HPI: The patient is a 87 y.o. female who presents with Establish Care (NXR RIGHT HIP BURSITIS, LEFT SHOULDER OA) Patient presents today for ongoing right posterior hip and buttock pain, as well as left shoulder pain. The patient notes that the left shoulder affects her deep inside the shoulder, and she has reduced motion as well as clinking and clanking. The patient feels a grinding and painful sensation the shoulder with movement, and feels as though she has lost some of her function and that shoulder to do daily tasks as a result. It bothers her with all movements of the shoulder, especially reaching and lifting things. She also had an x-ray with Dr. peterson, which show glenohumeral osteoarthritis. The patient also presents for right posterior hip pain, which she feels more towards the spine, butoff to the right side. This pain comes and goes, and does not bother her all the time. She does notknow exactly what provokes this pain. The patient has had 1-2 corticosteroid injections for her shoulder, but at the last injection she had a bad reaction, and had to go to the hospital. She notes that she got flushed, and then was feeling faint. Relevant labs- BMI Readings from Last 2 Encounters: 10/27/23 26.83 kg/m?? 10/28/22 27.96 kg/m?? Lab Results Component Value Date HA1C 5.6 06/05/2022 Lab Results Component Value Date INR 1.7 (H) 07/24/2015 INR 1.0 07/02/2015 INR 1.1 07/01/2015 PT 20.6 (H) 07/24/2015 PT 13.3 07/02/2015 PT 14.0 07/01/2015 Lab Results Component Value Date NA 141 06/09/2022 K 3.7 06/09/2022 CL 107 06/09/2022 CO2 22 06/09/2022 BUN 24 (H) 06/09/2022 CREATININE 0.71 06/09/2022 GLUCOSE 97 05/07/2020 GLUCFASTING 121 (H) 06/09/2022 CALCIUM 8.7 06/09/2022 ESTGFR 84 06/09/2022 BP Readings from Last 3 Encounters: 10/28/22 172/47 06/09/22 152/44 05/04/22 199/52 Lab Results Component Value Date WBC 8.0 06/09/2022 HGB 12.3 06/09/2022 HCT 37.6 06/09/2022 MCV 82.6 06/09/2022 PLATELET 199 06/09/2022 Lab Results Component Value Date CHLPL 232 (H) 10/22/2022 CHLPL 114 06/05/2022 CHLPL 112 08/27/2021 CHLPL 111 08/27/2021 Lab Results Component Value Date HDL 58 10/22/2022 HDL 48 06/05/2022 HDL 54 08/27/2021 HDL 54 08/27/2021 Lab Results Component Value Date LDLCHOL 157 (H) 10/22/2022 LDLCHOL 40 08/27/2021 LDLCHOL 38 08/27/2021 Lab Results Component Value Date TRIG 87 10/22/2022 TRIG 95 06/05/2022 TRIG 92 08/27/2021 TRIG 94 08/27/2021 Lab Results Component Value Date CHOLHDL 2.4 06/05/2022 CHOLHDL 2.1 08/27/2021 CHOLHDL 2.1 08/27/2021 Anticoagulant & Antiplatelet medications Antibiotics No active infections RADIOLOGY XR hip right Independent interpretation of the imaging reveals mild OA bilaterally. Physical Exam: Vitals: Ht 154.9 cm (5' 1) Wt 64.4 kg (142 lb) BMI 26.83 kg/m?? - Gen: Alert and following commands, no acute distress - CV: pulses 2+ and equal - Skin: Intact skin, non-erythematous, no rashes or breakdown appreciated MSK At the left Shoulder Exam Inspection: Normal muscle bulk and tone No atrophy No deformity No effusion noted Palpation- TTP at the subacromial space TTP at the biceps tendon long head No TTP at the coracoid process No TTP at the ACJ No TTP at the periscapular muscles ROM (degrees): - Abduction: 150 - External rotation: 5 - Internal rotation: lower back - Scapular dyskinesis: pos Strength: (R/L) Abduction: 5/5 External rotation: 5/5 Internal rotation: 5/5 Special Tests: Impingement - Neer's: neg - Larios: pos Rotator Cuff - Full can test- pain/weak Labrum - [place]'s test- pain Biceps Tedon - Speed's test- pain/weak At the right hip Inspection There is no gross deformity Normal muscle bulk and tone ROM Hip flexion: 120 deg ER: 40 deg IR: 20 deg Palpation No TTP at the iliopsoas at the level of the hip joint No TTP at the ASIS No TTP at the AIIS No TTP at the greater trochanter No TTP at the ITB Equivocal TTP at the PSIS TTP at the piriformis Special tests Intraarticular pathology Scour of the hip: Neg Stinchfield: Neg AUSTEN: Neg FADIR: Neg Log roll: Neg SI Joint Aleah finger: mild pain Diagnostic Ultrasound Pre-scan of the left shoulder joint does not reveal significant effusion pre-scan of the right buttock does not reveal any abnormality. PROCEDURE Ultrasound guided injection. Procedure injection location: piriformis Side: Right Indication: Pain and limited function Equipment: Pulsant with 4-20 MHz linear transducer, 4-12 MHz linear transducer, 8-18MHz hockey stick and 1-5 MHz curvilinear probe for adequate depth. After discussion of the risks and potential benefits of the procedure, verbal informed consent was obtained. Justification for use of ultrasound guidance: The use of direct ultrasound visualization of the needle (rather than a non-guided injection) was required to increase patient safety by excluding inadvertent intramuscular or intratendinous placement and minimizing bleeding by avoiding osteochondral orvascular injury from the needle. Additionally, the increased accuracy of placement may increase clinical effectiveness and will allow higher diagnostic specificity when evaluating effectiveness of this injection. The injection location was confirmed by a prescan of the area. Following this, the area was cleanedin the usual sterile fashion with chlorhexidine. Subsequently a 25g 1.5in needle was advanced to the target under direct ultrasound visualization using an in-plane approach. Aspiration revealed no blo od. The injection was performed with solution volumes as below. Ketoralac 30mg/ml 1ml The needle was removed. Hemostasis was achieved with direct pressure. There were no complications and the patient tolerated the procedure well. Post procedure instructions were provided. Ultrasound guided injection. Procedure injection location: Glenohumeral joint Side: Left Indication: Pain and limited function Equipment: Pulsant with 4-20 MHz linear transducer, 4-12 MHz linear transducer, 8-18MHz hockey stick and 1-5 MHz curvilinear probe for adequate depth. After discussion of the risks and potential benefits of the procedure, verbal informed consent was obtained. Justification for use of ultrasound guidance: The use of direct ultrasound visualization of the needle (rather than a non-guided injection) was required to increase patient safety by excluding inadvertent intramuscular or intratendinous placement and minimizing bleeding by avoiding osteochondral orvascular injury from the needle. Additionally, the increased accuracy of placement may increase clinical effectiveness and will allow higher diagnostic specificity when evaluating effectiveness of this injection. The injection location was confirmed by a prescan of the area. Following this, the area was cleanedin the usual sterile fashion with chlorhexidine. Subsequently a 25g 1.5in needle was advanced to the target under direct ultrasound visualization using an in-plane approach. Aspiration revealed no blo od. The injection was performed with solution volumes as below. Lidocaine 1% 2 ml Triamcinolone 40 mg/ml 1ml The needle was removed. Hemostasis was achieved with direct pressure. There were no complications and the patient tolerated the procedure well. Post procedure instructions were provided. ASSESSMENT & PLAN Impression: chronic left shoulder pain due to glenohumeral osteoarthritis. We're still waiting for the patient to send her x-rays over, however the the patient had significant funking on examination, and pain with provocation of the shoulder joint. Therefore will provide her with an injection today. The patient has an allergy to corticosteroids, and it is unclear whether this is due to the steroid or lidocaine portion. Therefore will provide her with a Toradol only injection today. We encourage the patientto maintain mobility and exercise as much as possible. Chronic right posterior hip pain. At this point the patient's pain is difficult to identify as she has on and off pain, however she locates the area right over the piriformis in her buttock. Therefore we provided an injection in this location today as a trigger point in order to improve the patient's pain. Plan: - Therapeutic exercise: Encouraged the patient to maintain general aerobic activity for blood flow and strengthening for stability. - Medications: No changes were made today.. Counseled regarding side effects and appropriate administration of medications as applicable. - Diagnostics: none - Injections: Discussed the risks of a potential joint injection, including bleeding, infection, transient blood sugar elevation, the possibility of wearing out cartilage over time. Discussed the risks of a potential soft tissue injection, including bleeding, infection, transient blood sugar elevation, skin depigmentation, and the possibility of weakening tissue over time. Ultrasound guided injection provided today to the left glenohumeral joint, right piriformis. - Medical Decision Making: Discussed surgical and non-surgical options. Detailed the patient's condition, prognosis, further work-up and treatment options. Activity modification was discussed. Answered all of the patient's questions. - F/U - for re-evaluation to ensure we have the appropriate diagnosis and treatment is optimized. Return sooner if needed, advised to call with any questions or concerns in the interim. Cabrera Vázquez MD Sports Collar Shaper OperatorScrewmaker [employer] of Orthopedics [facility] The note was created using dictation, please excuse any grammatical or word errors. documented in this encounter Plan of Treatment Not on file documented as of this encounter Goals Goal Patient Goal Type Associated Problems Recent Progress Patient-Stated? Author LDL CALC < 70 Result Component No Michael Mckinnon, [facility] documented as of this encounter Visit Diagnoses Diagnosis Primary osteoarthritis of left shoulder- Primary Primary localized osteoarthrosis, shoulder region Piriformis syndrome, right documented in this encounter Administered Medications Inactive Administered Medications - up to 3 most recent administrations Medication Order MAR Action Action Date Dose Rate Site ketorolac (Toradol) (30 mg/mL) injection 30 mg 30 mg, Intramuscular, ONCE, 1 dose, On Flavia 10/27/23 at 1530, Intraarticular , Routine Given 10/27/2023 3:12 PM EDT 30 mg ketorolac (Toradol) (30 mg/mL) injection 30 mg 30 mg, Intramuscular, ONCE, 1 dose, On Flavia 10/27/23 at 1530, Intraarticular , Routine Given 10/27/2023 3:12 PM EDT 30 mg documented in this encounter Care Teams Gauge Machine Operator Relationship Specialty Start Date End Date Sukh Daniel DNP [address] [place] [id number] PCP - General Family Medicine 09/19/23 documented as of this encounter
--- OUTSIDE RECORDS SUMMARY | 2024-03-29 03:33 | XMS_ITS | Encounter Summary ---
[place] [address] Care Team Providers Care Questioned Documents Examiner Name Role Phone Andrew Novak APRN Primary Care Provider +1- [phone] Reason for Visit * Reason Comments Medication Management Encounter Details Date Type Department Care Team ([facility] st Contact Info) Description 08/20/2022 Specialty [place] [phone] Dirk Batres [facility] Social History Tobacco Use Types Packs/Day Years [...] Progress Notes * Dirk Batres RPH - 08/20/2022 11:50 AM EST Clinical Management Plan: Transfer of Care/Discharge Specialty Services Specialty Pharmacy Consultation; Dirk Batres RPH Comprehensive Medication Management (CMM) Ginger Amador [address] [facility] [address] Telephone Information: Work Phone Not on file. Is the patient transferring services to a different Specialty Pharmacy or discontinuing the medication? Discontinuing Services Medication: PRALUENT Reason for discontinuation or transfer: unable to reach patient after multiple attempts Approximate date of discontinuation or transfer: 08/20/2022 Patient's response to therapy: good Summary of services provided by [facility] Specialty: new start, consultations, refill reminders, care plans, [id number] Summary of on-going needs: n/a Referral for additional services (if applicable): n/a Is patient aware of referral? yes - LVM Instructions provided to patient about discharge/transfer: yes - sent message Provider aware of discontinuation or transfer: yes Patient understands no changes to current drug regimen were made at the appointment and that [facility] isproviding recommendations (summary located at top of note) for provider review and follow up. Dirk Batres RPH 08/20/22 11:51 AM documented in this encounter Plan of Treatment Not on file documented as of this encounter Goals Goal Patient Goal Type Associated Problems Recent Progress Patient-Stated? Author LDL CALC < 70 Result Component No Michael Mckinnon [facility] documented as of this encounter Visit Diagnoses Not on filedocumented in this encounter Care Teams Questioned Documents Examiner Relationship Specialty Start Date End Date Andrew Novak APRN [address] [place] [address] PCP - General Family Medicine 08/15/20 09/18/23 documented as of this encounter
--- OUTSIDE RECORDS SUMMARY | 2024-03-29 03:33 | XMS_ITS | Encounter Summary ---
[place] [address] Care Team Providers Care Group Home Manager Name Role Phone Andrew Novak APRN Primary Care Provider +1- [phone] Reason for Visit * Reason Comments Medication Management Encounter Details Date Type Department Care Team ([facility] st Contact Info) Description 12/08/2022 Specialty [place] [phone] Dirk Batres [facility] Social History Tobacco Use Types [...] Progress Notes * Dirk Batres RPH - 12/08/2022 3:58 PM EDT Clinical Management Plan: Refill Specialty Pharmacy Consultation; Dirk Batres RPH Comprehensive Medication Management (CMM) Ginger Amador Ms. Ginger Amador is a 86 y.o. (1935) female who refilled their specialty medication, Praluent , without speaking to a personal service representative from the Specialty Pharmacy. The medication was refilledon 12/08/2022 for a 42 day supply for 0 copay. Outreach attempt was made for refill questions on 12/08/2022. Adherence: Gaps in fill history: no Was a change made to the Care Plan: no If yes, should the medication be held: No The specialty pharmacy staff will follow up with the patient 5-7 days prior to next refill for reminder if needed. Dirk Batres RPH 12/08/22 3:59 PM documented in this encounter Plan of Treatment Not on file documented as of this encounter Goals Goal Patient Goal Type Associated Problems Recent Progress Patient-Stated? Author LDL CALC < 70 Result Component No Michael Mckinnon RPH documented as of this encounter Visit Diagnoses Not on filedocumented in this encounter Care Teams Group Home Manager Relationship Specialty Start Date End Date Andrew Novak, [facility] [address] [facility] [address] [place] [address] PCP - General Family Medicine 08/15/20 09/18/23 documented as of this encounter
--- OUTSIDE RECORDS SUMMARY | 2024-03-29 03:33 | XMS_ITS | Encounter Summary ---
[place] [address] Care Team Providers Care Armhole Feller Handstitching Machine Name Role Phone Andrew Novak APRN Primary Care Provider +1- [phone] Reason for Visit * Reason Onset Date Comments Medication Refill 03/29/2023 Encounter Details Date Type Department Care Team (Late st Contact Info) Description 03/29/2023 Refill Cardiology at [address] [address] Dean Tilley MD [facility] [place] [address] Medication Refill Social History Tobacco Use Types [...] < 70 Result Component No Michael Mckinnon, [facility] documented as of this encounter Visit Diagnoses Diagnosis Hyperlipidemia, unspecified hyperlipidemia type documented in this encounter Care Teams Armhole Feller Handstitching Machine Relationship Specialty Start Date End Date Andrew Novak APRN [address] [place] [address] PCP - General Family Medicine 08/15/20 09/18/23 documented as of this encounter
--- OUTSIDE RECORDS SUMMARY | 2024-03-29 03:33 | XMS_ITS | Encounter Summary ---
Author Organization [place] [address] Care Team Providers Care Library Sales Consultant Name Role Phone Sukh Daniel Yoelbenny NIRAV Primary Care Provider [phone] Reason for Visit * Reason Comments Neck Pain * Consultation (Routine) - Pending Review Specialty Diagnoses / Procedures Referred By Contac t Referred To Contact [facility] Diagnoses Spondylosis of cervical region without myelopathy or radiculopathy Eval and Treat PT Referral Mariza Cee MD [facility] [place] [address] [facility] [place] [place] [address] Referral ID Status Reason Start Date Expiration Date Visits Requested Visits Authorized [id number] Pending Review Physiatry Consult 11/07/2023 11/06/2024 1 1 Encounter Details Date Type Department Care Team ([facility] st Contact Info) Description 12/13/2023 11:00 AM EDT Office Visit [place] [address] Cabrera Caldwell, PT Segmental and somatic dysfunction of cervical region Social History Tobacco Use Types Packs/Day Years Used Date Smoking Tobacco: Never Smokeless Tobacco: Never Alcohol Use Standard Drinks/Week Comments Yes 0 (1 standard drink = 0.6 oz pur e alcohol) Social Sex and Gender Information Value Date Recorded Sex Assigned at Not on file Gender Identity Not on file Sexual Orientation Not on file documented as of this encounter Miscellaneous Notes * Initial Evaluation - HarleygabbyCabrera, PT - 12/13/2023 11:00 AM EDT [place] [facility] Evaluation Note Subjective Exam: Ginger Amador reports for PT evaluation due to neck pain with radiating symptoms to both hands. They were referred by Mariza Cee MD. These symptoms began many years ago. Since that time, symptoms have been highly variable. Spending a lot of time in front of the computer a lot for work, and noticing positional challenges. The entire R side of her body doesn't feel like it operates properly. She also feels that her balance is worse, and that she is leaning to the L side. L shoulder has RCT per her report, and has a consult on this week. Quality of Symptoms: Neck does not feel bad. L arm pain from the anterior shoulder to the lateral forearm. 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 Fluid Intake: Not drinking enough water. 1 glass of water in the morning and lunch. Tea and coffee on occasion Prior Exercise: Walking - will do this more as the weather improves. Prior Treatment: Recreational/Leisure Activities: Used to hike, sail, and be active. 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 History of cancer: Denies Objective Findings: ROM Eval Comments Cervical Flexion 60 Cervical Extension 10 Cervical Rotation R 45 Cervical Rotation L 50 Cervical Sidebending R 15 Cervical Sidebending L 20 Myotomes Eval Comments Shoulder Elevation (C2-4) 5/5 Deltoid (C5) 4/5 L Biceps (C6) 5/5 Triceps (C7) 5/5 Thumb Ext (C8) 4-/5 on the R Digit Abd (T1) 4/5 Deskidding Machine Operator 4/5 *Above findings are VCITORINO unless otherwise specified Notable atrophy in both hands Postural Findings: Head Position: Significant protraction Shoulder Position: Significant protraction Thoracic Kyphosis: Increased Lumbar Lordosis: Slightly reduced. Using a tri-wheel walker in the community, and 4WW in her home. Triwheel walker is set with handlesaround elbow height. Significant pitting edema in the R lower leg and ankle. Tick is embedded in the anterior neck on the L side - this was removed by nursing staff during session UE Neuro symptoms: Reflexes: normal Sensation: abnormal sensation noted in the R hand diminished 3-5th digits significantly, some sensation changes 1-2nd digits as well with light touch. Treatment: Education on exam findings and rationale for focusing on neck and upper back mobility and improved upright walking capacity. We discussed the potential for continuing her care at her PT close to hometo allow for greater access and for use of their gym space(this is something they offer to clients). She was provided guidance on active assisted cervical extension with use of pillow case around thelower neck for support. Adjustment of tri-wheeled walker to height of the radial styloid VICTORINO. Gait training - cues for eyesup. Improved upright capacity. She was guided to bring 4WW into her other PT office to make any adjustments as well. Time Spent with Patient: 60 Minutes Assessment: Ginger Amador is a pleasant 87 y.o. female who presents with complaints of weakness in the upper body, radiating symptoms into the L arm, significant postural changes, and gross and segmental mobility loss in the neck. consistent with segmental and somatic dysfunction of cervical region. These impairments have limited their ability to be as active as she would like. She is uninterested in any surgical intervention that would be recommended in spite of potential indications. We discussed PT with me versus close to home, and she opts to stay close to home. This will allow for more oversight, as well as use of their gym on non-treatment days to stay more active. She was provided some general guidance about posture, gait, and mobility work for the next to use her time adequately today, but we will not be starting a plan of care. She was told to contact me should she change her mind in the future. Plan: PT close to home. Goals: In 4 weeks, patient will report 50% or greater compliance with HEP to demonstrate improvement in self-management of symptoms. In 4 weeks, patient will demonstrate effective use of two or greater symptom management tools to improve overall function. In 4 weeks, patient will verbalize understanding of importance of increasing movement and functional activity to improve joint and tissue mobility to demonstrate adequate understand and promote compliance to HEP. In 8 weeks, patient will report improvement in symptoms of >/= 20% compared to evaluation. documented in this encounter Plan of Treatment Not on file documented as of this encounter Goals Goal Patient Goal Type Associated Problems Recent Progress Patient-Stated? Author LDL CALC < 70 Result Component No Michael Mckinnon, [facility] documented as of this encounter Procedures Procedure Name Priority Date/Time Associated Diagnosis Comments PT PLAN OF CARE CERT/RE-CERT Routine 12/13/2023 12:44 PM EDT Segmental and somatic dysfunction of cervical region documented in this encounter Visit Diagnoses Diagnosis Segmental and somatic dysfunction of cervical region Nonallopathic lesion of cervical region, not elsewhere classified documented in this encounter Care Teams Library Sales Consultant Relationship Specialty Start Date End Date Sukh Daniel DNP [address] [place] [address] [place] [address] PCP - General Family Medicine 09/19/23 documented as of this encounter
--- OUTSIDE RECORDS SUMMARY | 2024-03-29 03:33 | XMS_ITS | Encounter Summary ---
[place] [address] Care Team Providers Care Boring Machine Operator Double End Name Role Phone Andrew Novak APRN Primary Care Provider [phone] Encounter Details Date Type Department Care Team (Late st Contact Info) Description 06/07/2023 Refill Cardiology at [address] [address] Dean Tilley MD [facility] [place] [address] Social History Tobacco Use Types Packs/Day Years [...] Result Component No Michael Mckinnon, [facility] documented as of this encounter Visit Diagnoses Diagnosis Hyperlipidemia, unspecified hyperlipidemia type documented in this encounter Care Teams Boring Machine Operator Double End Relationship Specialty Start Date End Date Andrew Novak APRN [address] [place] [address] PCP - General Family Medicine 08/15/20 09/18/23 documented as of this encounter
--- OUTSIDE RECORDS SUMMARY | 2024-03-29 03:34 | XMS_ITS | Encounter Summary ---
Author Organization [place] [id number] Care Team Providers Care Boat Painter Name Role Phone Andrew Novak APRN Primary Care Provider [phone] Reason for Visit * Auth/Cert Specialty Diagnoses / Procedures Referred By Kirk t Referred To Contact Diagnoses NSTEMI (non-ST elevated myocardial infarction) HTN emergency Sherita Rollins MD [facility] [place] [address] [facility] Referral ID Status Reason Start Date Expiration Date Visits Re quested Visits Authorized [id number] 1 1 Encounter Details Date Type Department Care Team (Late st Contact Info) Description 06/08/2022 1:35 PM EDT - 06/08/2022 2:35 PM EDT Surgery [place] [address] Doug Ruiz MD [facility] [place] [address] CARDIAC CATHETERIZATION Social History Tobacco Use Types Packs/Day Years [...] Sign Reading Time Taken Comments Blood Pressure 158/62 06/08/2022 12:34 PM EDT Pulse 63 06/08/2022 11:25 AM EDT Temperature 36.8 ??C (98.2 ??F) 06/08/2022 11:25 AM E DT Respiratory Rate 20 06/08/2022 11:25 AM EDT Oxygen Saturation 94% 06/08/2022 11:25 AM EDT Inhaled Oxygen Concentration - - Weight 72.4 kg (159 lb 9.8 oz) 06/08/2022 6:40 A M EDT Height - - Body Mass Index 30.08 05/04/2022 8:52 AM EDT documented in this encounter Discharge Summaries * Demetri Rivera PA - 06/09/2022 1:20 PM EDT Discharge Summary Patient Name: Lemuel Amador Patient Age: 86 y.o. Language: Persian Race: White Ethnicity: Not nor Admit date: 06/04/2022 Discharge date and time: 06/09/2022 1:37 PM Attending Physician: Sherita Rollins MD Discharge Physician: Sherita Rollins MD Follow-up Recommendations for Providers: Lemuel Amador is an 86 y.o female who was admitted for NSTEMI in the setting of hypertensive urgency. 1. NSTEMI type II in setting of hypertensive urgency 2. Uncontrolled hypertension - HS trop flat 28 -> 27 -> 28 - TTE w/ EF 69%, no significant changes from prior in 2018 - S/p nuclear stress test 06/07 w/ lateral wall ischemia - S/p LHC 06/08 with open grafts, no acute obstructive disease - Continue daily aspirin, PRN ntg, Zetia and Praluent - Amlodipine increased to 10 mg daily from 5 mg daily - Continue Losartan 100 mg daily - Spironolactone 12.5 mg daily added for better blood pressure control - Defer beta blockier given baseline bradycardia and history of falls of unclear etiology - Recommend BMP check in ~1-2 weeks given new daily dosing of spironolactone 2. Falls at home - Unclear etiology - Ziopatch placed at discharge to evaluate for possible arrhythmic causes Inpatient Provider Contact Information: No att. providers found VANCE Wilks PA-C Cardiovascular Medicine Discharge Diagnoses (Hospital Problems) and Secondary Diagnoses (Chronic Problems): Active Hospital Problems Diagnosis ??? NSTEMI (non-ST elevated myocardial infarction) ??? Wound of left leg ??? Hypertensive emergency ??? Frequent falls Resolved Hospital Problems No resolved problems to display. Active Non-Hospital Problems Diagnosis ??? Status post coronary artery bypass grafting ??? CAD (coronary artery disease) ??? Hypertension ??? LUNA (dyspnea on exertion) ??? Muscle cramps ??? Asthma ??? Actinic keratosis ??? Verruca vulgaris ??? Seborrheic keratosis Pertinent studies / diagnostics: Cardiac catheterization 06/08/2022 Hemodynamics: Left Heart Pressures Resting: Syst Diast EDP a v m Ao 180 54 98 Coronary Angiography: Dominance: Right Left Main There was mild diffuse (<=25% stenosis) disease of the entire vessel segment of the left main artery. Left Anterior Descending There was mild diffuse (<=25% stenosis) disease of the entire vessel segment of the left anterior descending artery (LAD). The proximal segment of the LAD had a single discrete total occlusion. Distal flow was via a bypass graft. Left Circumflex There was mild diffuse (<=25% stenosis) disease of the entire vessel segment of the left circumflex artery (LCX). The proximal segment of the LCX had a single discrete total occlusion. Distal flow was via a bypass graft. Right Coronary Artery There was mild diffuse (<=25% stenosis) disease of the entire vessel segment of the right coronary artery (RCA). The ostial segment of the RCA had a single discrete 75% stenosis. Distal flow was via the grand traverse vessel and a bypass graft. Bypass Grafts: There was a total of four bypass grafts evaluated during this procedure. 1. Left internal mammary artery graft to the LAD There was a left internal mammary artery graft with a single anastomosis to the left anterior descending artery (LAD). There was no evidence of obstruction in this graft. Distal flow was normal. 2. Right internal mammary artery graft to the RCA There was a right internal mammary artery graft with a single anastomosis to the right coronary artery (RCA). There was no evidence of obstruction in this graft. Distal flow was normal. 3. Saphenous vein graft to the Diagonal 1 There was a saphenous vein graft with a single anastomosis to the first diagonal branch (Diagonal 1) of the LAD. There was no evidence of obstruction in this graft. Distal flow was normal. 4. Saphenous vein graft to the OM1 There was a saphenous vein graft with a single anastomosis to the first obtuse marginal branch (OM1) of the LCX. There was no evidence of obstruction in this graft. Distal flow was normal. Vascular Access: Vascular Access Management: Mechanical Compression of the right radial artery access site was performed. A Perclose was deployed at the right femoral artery access site. This device was successful. Conclusions: * Three vessel coronary artery disease (LAD, LCX and RCA) * Patent left internal mammary artery graft to the LAD * Patent right internal mammary artery graft to the RCA * Patent saphenous vein graft to the Diagonal 1 * Patent saphenous vein graft to the OM1 * No obstrucitve renal artery stenosis. NST 06/07/2022 FINDINGS: At rest, perfusion is within normal limits. At stress, there is a moderate intensity basilar to mid lateral wall perfusion defect suggestive of ischemia. ?? Myocardial function: There is normal wall thickening and wall motion. Left ventricular ejection fraction: 58 % (normal greater than than 50%). ?? IMPRESSION 1. ??Lateral wall ischemia 2. ??Normal left ventricular ejection fraction TTE(06/04/22) Biventricular function is normal with LVEF of 69% by Sanchez's biplane and no wall motion abnormalities. LV filling pressure is elevated. PASP 36 mm Hg (assuming RA pressure 8 mm Hg).The left atrium is moderately dilated. The right atrium is normal.There is no hemodynamically significant valvular disease present. Compared to prior echo 12/19/2018, no significant changes have occured. History of Presentation: Per admission H+P Lemuel Amador is a 86 y.o. female with PMH of ASCVD s/p CABG x 4 in 09/2014 ( DAUGHERTY to LAD, SVG to OM, SVG to diag, ANTONIO to RCA), HTN, prediabetes, asthma, cervical myelopathy, radiculopathy and rightsided weakness who presented to [facility] after a fall at home. ?? As per pt she fell in her bedroom hitting her head with the dresser with no LOC, dizziness, lightheadedness, palpitations, chest pain, bowel or urinary incontinence. Pt reports frequent episodes of falls, almost once or twice a month. She states that she gets these moments where she loss coordination between the head and legs falls with no other preceding symptoms or LOC. She has cervical myelopathy with right sided weakness, follows with neurology. Neurosurgery declined her surgery as she ishigh risk. ?? Pt reported episodes of right sided chest pain radiating to the central of chest. Pain was sharp, lasting for a few seconds before resolving associated with pin pricking sensation in the right arm. ?? Pt reports tripping in bathroom hitting her head on the dresser. She was complaining of headache. Pt also reported brief episodes of right sides chest pain radiating to the right arm. Denies shortness of breath, nausea, vomiting, diaphoresis, dizziness, lightheadedness, weakness/numbness in the extremities. ?? Her BP was elevated to 257/122. Labs with wbc 11>10, H&H 14.8/46, Plt 198. Na 142, K 3.6, BUN 15, Cr 0.9, AST 27, ALT 29, Trop I 98>161. EKG sinus, LAD, TWI in I, AVL ( old). CT head with no acute intracranial findings but showed soft frontal scalp soft tissue edema/hematoma with right frontal scalp laceration. ?? Pt received IV labetalol 20 mg x 2, 10 mg x 2, 5 mg x 1, SL nitro x 2, ASA 324 mg and is transferred here for further management. ?? At the time of my evaluation, she denies chest pain, shortness of breath. She does endorses significant stress recently as per eldest daughter few days ago and she will be going for her service next week in [place]. Also she doesn't have a PCP and hasn't seen her primary operations/dispatch Dr. Tilley in a couple of years. She lives alone, walks independently, had 3 daughter ( one just ) ?? Hospital Course: ?? #NSTEMI type II #Hx of ASCVD s/p CABG x 4 (DAUGHERTY to LAD, SVG to OM, SVG to Diag, ANTONIO to RCA) in 2015 #Hypertensive emergency: ??likely 2/2 medications non compliance # Hx of diastolic dysfunction Patient presented after falls at home. Admitted to cardiology for reports of chest pain and elevated troponin-I. Troponin-HS flat, EKG with T wave changes. BP 250/120s. Given her hypertensive emergency, atypical chest pain, and flat troponins, felt to likely represent an NSTEMI type II. Her anti-hypertensive agents were optimized. TTE showed EF 69% with no WMAs, and no significant changes from prior TTE in 2019. A nuclear stress test to rule out ischemia was arranged, which ultimately showed large lateral wall ischemia. She subsequently underwent cardiac catheterization on 06/08/2022 which showed patent grafts, no acute obstructive disease and no obstructive renal artery stenosis. Telemetrywas monitored closely and no arrhythmias were noted during her hospitalization. She was discharged with a ziopatch to evaluate for possible arrhythmic causes of her falls. Beta jaymie has been deferred given baseline bradycardia and her history of recent falls of unclear etiology. Low dose spironolactone 12.5 mg daily was added with goal for better blood pressure control. Discharged on Amlodipine 10 mg daily, Losartan 100 mg daily, daily aspirin 81 mg. #Fall mechanical vs neurogenic vs arrhythmogenic #??Hx of cervical myelopathy Pt denied ever losing consciousness, however, reported loss of coordination between head and legs. CT head from OSH negative for acute intracranial bleed but showed edemahematoma with R frontal scalp laceration. Orthostatic BPs negative. PT evaluated and reported she is safe to return home and recommended outpatient therapy services. No arrhythmias were noted on telemetry throughout hospitalization. Ziopatch was placed at discharge to evaluate for arrhythmias as potential causes of multiple falls. Functional and Cognitive Status: Alert and oriented x 3, ambulatory-independent Important Studies and Lab Data: Labs: Lab Results Component Value Date WBC 8.0 06/09/2022 HGB 12.3 06/09/2022 HCT 37.6 06/09/2022 PLATELET 199 06/09/2022 No results for input(s): INR in the last 168 hours. Lab Results Component Value Date NA 141 06/09/2022 K 3.7 06/09/2022 CL 107 06/09/2022 CO2 22 06/09/2022 BUN 24 (H) 06/09/2022 CREATININE 0.71 06/09/2022 Recent Labs 06/04/22 1831 TSH 2.93 Recent Labs 06/05/22 0043 HA1C 5.6 No results for input(s): CK, TROPONINT in the last 168 hours. Lab Results Component Value Date CHLPL 114 06/05/2022 HDL 48 06/05/2022 CHOLHDL 2.4 06/05/2022 TRIG 95 06/05/2022 LDLCHOL 40 08/27/2021 LDLCHOL 38 08/27/2021 LDLDIRECT 50 06/05/2022 Pending Studies and Lab Data: N/A . Discharge Conditions/Prognosis: Stable. Ambulatory without chest pain, SOB. Afebrile. Discharge to: Home. Updated Allergies/ADRs: Allergies Allergen Reactions ??? Bacitracin ??? Gabapentin Other (See Comments) [place] like a zombie ??? Gramicidin D ??? Ibuprofen ??? Lidocaine ??? Neomycin Sulfate ??? Neosporin [Hydrocortisone] ??? Polymyxin B ??? Polymyxin B Sulfate ??? Eogcnwa-Oyh-Vsd Reductase Inhibitors Other (See Comments) Muscle soreness/weakness, fatigue ??? Sulfa (Sulfonamide Antibiotics) Immunizations Given this Hospitalization: Immunization History Administered Date(s) Administered ??? Influenza Vaccine, Whole 06/28/2005 ??? Moderna Covid-19 (Tuber Operator 100mcg) Vaccine 09/11/2020, 10/10/2020, 07/02/2021 ??? Td, adult 10/09/2003 Discharge Medications: Your Medications Continued medications with new dosing Dose Details amLODIPine 10 mg Tab Commonly known as: Norvasc Take 1 tablet by mouth daily. Start taking on: June 10, 2022 What changed: ?? medication strength ?? how much to take 10 mg Quantity: 90 tablet Refills: 3 losartan 100 mg Tab Commonly known as: COZAAR Take 1 tablet by mouth daily. Start taking on: June 10, 2022 What changed: how much to take 100 mg Quantity: 90 tablet Refills: 3 spironolactone 25 mg Tab Commonly known as: Aldactone Take 0.5 tablets by mouth daily. Start taking on: June 10, 2022 What changed: additional instructions 12.5 mg Quantity: 45 tablet Refills: 3 Continued medications, unchanged Dose Details alirocumab 75 mg/mL Pnij Commonly known as: Praluent Pen Inject 1 mL subcutaneously every 21 days. 75 mg Quantity: 2 mL Refills: 0 aspirin EC 81 mg Tbec Take 1 tablet by mouth daily. Start taking on: June 10, 2022 81 mg Quantity: 30 tablet Refills: 3 CALCIUM ORAL Take 1 tablet by mouth daily. 1 tablet Refills: 0 cholecalciferol (Vitamin D3) 10 mcg (400 unit) Cap Take by mouth. Indications: one daily Refills: 0 CO Q-10 ORAL Take by mouth. Refills: 0 Cod Liver Oil Oil Take 1 Dose by mouth. 1 Dose Refills: 0 ezetimibe 10 mg Tab Commonly known as: Zetia Take 1 tablet by mouth daily. Start taking on: June 10, 2022 10 mg Quantity: 90 tablet Refills: 3 FEVERFEW ORAL Take 1 tablet by mouth daily. 1 tablet Refills: 0 fluticasone propion-salmeteroL 250-50 mcg/dose Dsdv Commonly known as: ADVAIR Inhale 1 puff into the lungs 2 times daily. 1 puff Refills: 0 GLUCOSAMINE MSM ORAL Take 500 mg by mouth as needed. 500 mg Refills: 0 nitroGLYcerin 0.4 mg Subl Commonly known as: Nitrostat Place 1 tablet under the tongue every 5 minutes as needed for Chest pain. 0.4 mg Quantity: 90 tablet Refills: 12 Smoking Status at Discharge: Social History Tobacco Use Smoking Status Never Smoker Smokeless Tobacco Never Used Instructions Given to Patient at Discharge: Patient Instructions Anti-coagulation follow up: N/A. Call your doctor if: Chest pain, dyspnea, pain or swelling in legs occurs, or for weight gain of 2 pounds overnight or 5pounds in 5 days. If you have non-emergent questions, prior to your follow-up visit call: Tuesday-Tuesday between the hours of 8A-5PM please call the Cardiology Clinic [phone] to speak with a nurse. All other hours please call the Hospital Coin Purse Assembler [phone] and ask to speak to the heat reader on-call. Driving: No driving for 48 hours after cath Follow up Appointments: Doctor Where Phone # Date Time PCP Andrew Novak APRN [address] [place] [address] 06/23/2022 2:20 PM Cardiology: Dr. Jung's colleague Manuela Valdovinos APRN [facility] Cardiology [facility] [phone] 07/12/2022 10:40 AM General Instructions Wound Care to Left lower leg Therahoney Gel and Mepilex Border - change dressing every, Tuesday, Tuesday, Tuesday and as needed for dressing with 50% or greater strike though drainage. 1. Cleanse wound with dermal wound cleanser. 2. Apply skin prep to periwound 3. Apply Therahoney to the wound bed. 4. Cover with a Mepilex Border. The patient will benefit from follow up in the [facility]. A referral can be made by calling [phone] or [address] an [facility] wound referral ([id number]) in the discharge navigator. Future Appointments and Orders Future Appointments and Orders Future Appointments Provider Department Dept Phone 07/12/2022 10:40 AM Manuela Valdovinos APRN Cardiology at [facility] Arrive at: Paraprofessional Interpreter Area [phone] Future Orders Complete By Elan Greene 48 Hrs-15 Days [[id number] CPT(R)] 06/09/2022 09/09/2022 Process Instructions: Scheduling Instructions: Questions: Does the patient have a pacemaker? If yes provide HI/LO settings: Apply for 7 or 14 days?: 14 Where will study be performed?: [facility] Clinics Discharge References/Attachments None Demetri Rivera PA-C 06/09/2022 documented in this encounter Discharge Instructions * Discharge Instructions* Kimber Del Castillo RN - 06/07/2022 12:27 PM EDT Wound Care to Left lower leg Therahoney Gel and Mepilex Border - change dressing every, Tuesday, Tuesday, Tuesday and as needed for dressing with 50% or greater strike though drainage. 1. Cleanse wound with dermal wound cleanser. 2. Apply skin prep to periwound 3. Apply Therahoney to the wound bed. 4. Cover with a Mepilex Border. The patient will benefit from follow up in the [facility]. A referral can be made by calling [phone] an [facility] wound referral ([id number]) in the discharge navigator. * Patient Instructions* Demetri Rivera PA - 06/08/2022 10:30 AM EDT Anti-coagulation follow up: N/A. Call your doctor if: Chest pain, dyspnea, pain or swelling in legs occurs, or for weight gain of 2 pounds overnight or 5pounds in 5 days. If you have non-emergent questions, prior to your follow-up visit call: Tuesday-Tuesday between the hours of 8A-5PM please call the Cardiology Clinic [phone] to speak with a nurse. All other hours please call the Hospital Coin Purse Assembler [phone] and ask to speak to the heat reader on-call. Driving: No driving for 48 hours after cath Follow up Appointments: Doctor Where Phone # Date Time PCP Andrew Novak APRN [address] [place] [address] 06/23/2022 2:20 PM Cardiology: Dr. Jung's colleague Manuela Valdovinos APRN [facility] Cardiology [facility] [phone] 07/12/2022 10:40 AM documented in this encounter Medications at Time of Discharge Medication Sig Dispensed Refills Start Date End Date Garlic 1,000 mg capsule daily. 01/12/2018 albuteroL 90 mcg/actuation inhaler (HFA) every 4 hours as needed. 07/01/2020 amLODIPine (Norvasc) 10 mg Tablet Take 1 tablet by mouth daily. 90 tablet 3 06/10/2022 ubidecarenone (CO Q-10 ORAL) Take by mouth. nitroGLYcerin (Nitrostat) 0.4 mg Tablet, SublingualIndications: Coronary artery disease involving grand traverse coronary artery, angina presence unspecified, unspecified whether grand traverse or transplanted heart Place 1 tablet under the tongue every 5 minutes as needed for Chest pain. 90 tablet 12 09/19/2020 cholecalciferol, Vitamin D3, 10 mcg (400 unit) CapsuleIndications:one daily Take by mouth. Indications: one daily Cod Liver Oil Oil Take 1 Dose by mouth. GLUCOSAMINE/METHYLSULF ONYLMETH (GLUCOSAMINE MSM ORAL) Take 500 mg by mouth as needed. CALCIUM ORAL Take 1 tablet by mouth daily. FEVERFEW ORAL Take 1 tablet by mouth daily. fluticasone-salmeterol (ADVAIR) 250-50 mcg/dose Disk with Device Inhale 1 puff into the lungs 2 times daily. spironolactone (Aldactone) 25 mg Tablet Take 0.5 tablets by mouth daily. 45 tablet 3 06/10/2022 11/07/2023 losartan (COZAAR) 100 mg Tablet Take 1 tablet by mouth daily. 90 tablet 3 06/10/2022 11/07/2023 aspirin EC 81 mg Tablet, Delayed Release (E.C.) Take 1 tablet by mouth daily. 30 tablet 3 06/10/2022 10/28/2022 ezetimibe (Zetia) 10 mg TabletIndications:Hype rlipidemia, unspecified hyperlipidemia type Take 1 tablet by mouth daily. 90 tablet 3 06/10/2022 11/04/2022 alirocumab (Praluent Pen) 75 mg/mL Pen InjectorIndications:Hy perlipidemia, unspecified hyperlipidemia type Inject 1 mL subcutaneously every 21 days. 2 mL 04/08/2022 07/01/2022 documented as of this encounter Progress Notes * Cherri Parra RN - 06/09/2022 8:18 AM EDT Cardiac rehab team reviewed this patient w/NSTEMI, med management. She had patent grafts on cath. No cardiac rehab referral indicated. * Aquiles Lopez - 06/09/2022 7:57 AM EDT Images from the original note were not included. Inpatient Cardiology Progress Note Patient Name: Lemuel Amador Service: FIELD INTERVIEWER / PA Responsible Attending: Sherita Rollins MD Reason for continued hospitalization: Evaluation and management of hypertensive crisis Chest pain s/p abnormal NST 06/07 LHC on 06/08 - patent grafts Discharge today Active Problems: Active Hospital Problems Diagnosis ??? NSTEMI (non-ST elevated myocardial infarction) ??? Wound of left leg ??? Hypertensive emergency ??? Frequent falls Resolved Hospital Problems No resolved problems to display. Interval History: No acute events overnight. LHC yesterday showed patent grafts. Denies any chest pain, SOB, lightheadedness, or dizziness. Pt agreeable for discharge today. Review of Systems: Review of Systems Constitutional: Negative. HENT: Positive for facial swelling (secondary to recent fall). Eyes: Brusing Respiratory: Negative. Negative for cough and shortness of breath. Cardiovascular: Negative. Gastrointestinal: Negative. Genitourinary: Negative. Negative for frequency. Musculoskeletal: Negative. Skin: Positive for color change (bruising). Neurological: Positive for syncope and weakness. Psychiatric/Behavioral: Negative. All other systems reviewed and are negative. Telemetry: HR: 55-70s Sinus bradycardia and sinus rhythm Meds: Scheduled Meds: ??? spironolactone 12.5 mg Oral Daily ??? amLODIPine 10 mg Oral Daily ??? fluticasone propion-salmeteroL 1 puff Inhalation BID ??? losartan 100 mg Oral Daily ??? aspirin EC 81 mg Oral Daily ??? ezetimibe 10 mg Oral Daily ??? sodium chloride 0.9 % (flush) 5 mL Intravenous BID Continuous Infusions: PRN Meds:sodium chloride 0.9 % (flush), nitroGLYcerin, acetaminophen, hydrALAZINE Physical Exam: Vital Signs: Last value Range last 24 hrs Temperature Temp: 36.6 ??C (97.9 ??F) Temp: [36.6 ??C (97.9 ??F)-37.1 ??C (98.8 ??F)] Heart Rate Heart Rate: 59 Heart Rate: [55-65] Blood Pressure BP: 158/52 BP: (142-183)/(41-62) Respiratory Rate Resp: 18 Resp: [18-22] SpO2 SpO2: 96 % SpO2: [93 %-97 %] Physical Exam Vitals and nursing note reviewed. Constitutional: General: She is not in acute distress. HENT: Head: Normocephalic. Comments: Facial bruising Eyes: Comments: Periorbital bruising Cardiovascular: Rate and Rhythm: Regular rhythm. Bradycardia present. Pulses: Normal pulses. Heart sounds: Normal heart sounds, S1 normal and S2 normal. No murmur heard. Pulmonary: Effort: Pulmonary effort is normal. Breath sounds: Normal breath sounds. No rales. Abdominal: General: Abdomen is flat. Palpations: Abdomen is soft. Tenderness: There is no guarding. Skin: General: Skin is dry. Findings: Bruising and wound present. Neurological: General: No focal deficit present. Mental Status: She is alert and oriented to person, place, and time. Psychiatric: Mood and Affect: Mood normal. Judgment: Judgment normal. Lab Comments: Recent Labs 06/09/2234106/08/2234506/07/22422 WBC 8.0 7.4 7.3 HGB 12.3 12.7 13.0 HCT 37.6 39.1 40.6 PLATELET 199 195 196 No results for input(s): INR in the last 168 hours. Recent Labs 06/09/2234106/08/2234506/07/22422 NA 141 139 139 K 3.7 3.7 3.8 CL 107 108* 108* CO2 22 22 BUN 24* 20* 21* CREATININE 0.71 0.74 0.76 No results for input(s): AST, ALT, ALKPHOS, BILITOT, BILIDIR in the last 168 hours. Recent Labs 06/09/2234106/08/2234506/07/22 042 CALCIUM 8.7 8.9 8.8 No results for input(s): CK, TROPONINT in the last 168 hours. Pertinent Radiographic/Diagnostic Results: Cardiac cath (06/08/22) * Three vessel coronary artery disease (LAD, LCX and RCA) * Patent left internal mammary artery graft to the LAD * Patent right internal mammary artery graft to the RCA * Patent saphenous vein graft to the Diagonal 1 * Patent saphenous vein graft to the OM1 * No obstrucitve renal artery stenosis. NST 06/07/2022 FINDINGS: At rest, perfusion is within normal limits. At stress, there is a moderate intensity basilar to mid lateral wall perfusion defect suggestive of ischemia. ?? Myocardial function: There is normal wall thickening and wall motion. Left ventricular ejection fraction: 58 % (normal greater than than 50%). ?? IMPRESSION 1. Lateral wall ischemia 2. Normal left ventricular ejection fraction TTE(06/04/22) Biventricular function is normal with LVEF of 69% by Sanchez's biplane and no wall motion abnormalities. LV filling pressure is elevated. PASP 36 mm Hg (assuming RA pressure 8 mm Hg).The left atrium is moderately dilated. The right atrium is normal.There is no hemodynamically significant valvular disease present. Compared to prior echo 12/19/2018, no significant changes have occured. EKG(06/04/22) Normal sinus rhythm with premature supraventricular complex rate 71 Left axis deviation Diagnostics from OSH CT Head(06/03/2022) No acute intracranial findings but showed soft frontal scalp soft tissue edema/hematoma with right frontal scalp laceration. Previous Diagnostics TTE (12/2018) EF 60-65% RV systolic function normal LV findings consistent with diastolic dysfunction Assessment: Lemuel Amador is a 86 y.o. female has a PMH of ASCVD s/p CABG x 4 in 09/2014 ( DAUGHERTY to LAD, SVG to OM, SVG to diag, ANTONIO to RCA), HTN, prediabetes, asthma, cervical myelopathy, radiculopathy and right sided weakness who presented to [facility] after multiple falls over the past months at home. Pt denies ever losing consciousness; However, reports loss of coordination between head and legs. Telemetry without evidence of arrhythmias. CT head from OSH negative for acute intracranial bleed but showed edemahematoma with R frontal scalp laceration. Troponin-HS flat, EKG with T wave changes.Presentation concerning for NSTEMI type I vs type II in setting of hypertensive urgency. Optimizinganti- hypertensive agents. TTE showed EF 69% with no significant changes from prior TTE in 2019. Underwent NST on 06/07/2022 w/ lateral wall ischemia. LHC yesterday showed patent bypass grafts. Will add Spironolactone for BP management and defer beta-blockers given bradycardia and history of falls.Will plan for discharge home today with a o pacth. Plan: #NSTEMI type I vs type II #Hx of ASCVD s/p CABG x 4 (DAUGHERTY to LAD, SVG to OM, SVG to Diag, ANTONIO to RCA) in 2014 Monitor telemetry for arrhythmias S/p ASA 325 mg, continue ASA 81 mg daily S/p Plavix 300 mg load; No further dosing of Plavix Hx of intolerance to statin; on Praluent at home Continue Zetia Nitro prn Formal TTE as above Place Zio patch NST 06/07 abnormal LHC 06/08- nonobstructive; patent grafts ?? #Hypertensive emergency: likely 2/2 medications non compliance BP: (142-183)/(41-62) recent BP range BP was >250/122 on presentation, improved s/p multiple doses of IV labetalol Amlodipine 10 mg daily Losartan 100mg daily Add Spironolactone 12.5mg daily IV hydralazine prn SBP > 160 Monitor BP readings ?? #Fall: likely mechanical as per hx VS 2/2 hypertensive crisis; Less likely neurogenic or arrhythmogenic # Hx of cervical myelopathy Fall precautions PT/OT consulted Trauma work up in OSH was negative Not a candidate for spinal surgery per neurosurgery given risk factors Tele monitoring ?? #Hx of prediabetes: A1c 5.6 Monitor FSG #Chronic R zuluaga wound Wound care consult Appreciate reccs Code status: Full code DVT prophylaxis- Ambulate Discussed with Sherita Rollins MD and DEBBY [place]land CELIA Amin 06/09/2022 Pager: [phone] Associated attestation - Sherita Rollins MD - 06/09/2022 2:38 PM EDT OOB to chair No complaints S/p LHC: patent grafts Nuclear MPI appears to be false positive, ? Breast artifact No tele events BP high, will add low dose lucita daily (pt was taking it PRN as outpt) ZioPatch to monitor arrhythmia given frequent falls OK to discharge pt home today. * Demetri Rivera PA - 06/08/2022 8:55 AM EDT Images from the original note were not included. Inpatient Cardiology Progress Note Patient Name: Lemuel Martin Perry Service: FIELD INTERVIEWER / PA Responsible Attending: Sherita Rollins MD Reason for continued hospitalization: Evaluation and management of hypertensive crisis Chest pain s/p abnormal NST 06/07 Awaiting [facility] Active Problems: Active Hospital Problems Diagnosis ??? NSTEMI (non-ST elevated myocardial infarction) ??? Wound of left leg ??? Hypertensive emergency ??? Frequent falls Resolved Hospital Problems No resolved problems to display. Interval History: No acute events overnight. Had NST yesterday morning that showed lateral wall ischemia. Plan for [facility] today. Review of Systems: Review of Systems Constitutional: Negative. HENT: Positive for facial swelling (secondary to recent fall). Eyes: Brusing Respiratory: Negative. Negative for cough and shortness of breath. Cardiovascular: Negative. Gastrointestinal: Negative. Genitourinary: Negative. Musculoskeletal: Negative. Skin: Positive for color change (bruising). Neurological: Positive for syncope and weakness. Psychiatric/Behavioral: Negative. All other systems reviewed and are negative. Telemetry: HR: 55-70s Sinus bradycardia and sinus rhythm Meds: Scheduled Meds: ??? potassium chloride ER 40 mEq Oral Once ??? clopidogreL 75 mg Oral Daily ??? amLODIPine 10 mg Oral Daily ??? fluticasone propion-salmeteroL 1 puff Inhalation BID ??? losartan 100 mg Oral Daily ??? aspirin EC 81 mg Oral Daily ??? ezetimibe 10 mg Oral Daily ??? sodium chloride 0.9 % (flush) 5 mL Intravenous BID ??? metoproloL tartrate 12.5 mg Oral Q6H BRIANA Continuous Infusions: PRN Meds:sodium chloride 0.9 % (flush), nitroGLYcerin, acetaminophen, hydrALAZINE Physical Exam: Vital Signs: Last value Range last 24 hrs Temperature Temp: 36.6 ??C (97.9 ??F) Temp: [36.6 ??C (97.9 ??F)-36.9 ??C (98.4 ??F)] Heart Rate Heart Rate: 56 Heart Rate: [45-61] Blood Pressure BP: 154/70 BP: (138-163)/(42-70) Respiratory Rate Resp: 19 Resp: [18-20] SpO2 SpO2: 96 % SpO2: [93 %-97 %] Physical Exam Vitals and nursing note reviewed. Constitutional: General: She is not in acute distress. HENT: Head: Normocephalic. Comments: Facial bruising Eyes: Comments: Periorbital bruising Cardiovascular: Rate and Rhythm: Normal rate and regular rhythm. Pulses: Normal pulses. Heart sounds: Normal heart sounds, S1 normal and S2 normal. No murmur heard. Pulmonary: Effort: Pulmonary effort is normal. Breath sounds: Normal breath sounds. No rales. Abdominal: General: Abdomen is flat. Palpations: Abdomen is soft. Tenderness: There is no guarding. Skin: General: Skin is dry. Findings: Bruising and wound present. Neurological: General: No focal deficit present. Mental Status: She is alert and oriented to person, place, and time. Psychiatric: Mood and Affect: Mood normal. Judgment: Judgment normal. Lab Comments: Recent Labs 06/08/2234506/07/2242206/06/22418 WBC 7.4 7.3 7.2 HGB 12.7 13.0 12.8 HCT 39.1 40.6 39.3 PLATELET 195 196 194 No results for input(s): INR in the last 168 hours. Recent Labs 06/08/2234506/07/2242206/06/22418 NA 139 139 140 K 3.7 3.8 3.8 CL 108* 108* 108* CO2 22 22 23 BUN 20* 21* 16 CREATININE 0.74 0.76 0.77 No results for input(s): AST, ALT, ALKPHOS, BILITOT, BILIDIR in the last 168 hours. Recent Labs 06/08/2234506/07/2242206/06/22418 CALCIUM 8.9 8.8 9.0 No results for input(s): CK, TROPONINT in the last 168 hours. Pertinent Radiographic/Diagnostic Results: NST 06/07/2022 FINDINGS: At rest, perfusion is within normal limits. At stress, there is a moderate intensity basilar to mid lateral wall perfusion defect suggestive of ischemia. ?? Myocardial function: There is normal wall thickening and wall motion. Left ventricular ejection fraction: 58 % (normal greater than than 50%). ?? IMPRESSION 1. Lateral wall ischemia 2. Normal left ventricular ejection fraction TTE(06/04/22) Biventricular function is normal with LVEF of 69% by Sanchez's biplane and no wall motion abnormalities. LV filling pressure is elevated. PASP 36 mm Hg (assuming RA pressure 8 mm Hg).The left atrium is moderately dilated. The right atrium is normal.There is no hemodynamically significant valvular disease present. Compared to prior echo 12/19/2018, no significant changes have occured. EKG(06/04/22) Normal sinus rhythm with premature supraventricular complex rate 71 Left axis deviation Diagnostics from OSH CT Head(06/03/2022) No acute intracranial findings but showed soft frontal scalp soft tissue edema/hematoma with right frontal scalp laceration. Previous Diagnostics TTE (12/2018) EF 60-65% RV systolic function normal LV findings consistent with diastolic dysfunction Assessment: Lemuel Amador is a 86 y.o. female has a PMH of ASCVD s/p CABG x 4 in 09/2014 ( DAUGHERTY to LAD, SVG to OM, SVG to diag, ANTONIO to RCA), HTN, prediabetes, asthma, cervical myelopathy, radiculopathy and right sided weakness who presented to [facility] after multiple falls over the past months at home. Pt denies ever losing consciousness; However, reports loss of coordination between head and legs. Telemetry without evidence of arrhythmias. CT head from OSH negative for acute intracranial bleed but showed edemahematoma with R frontal scalp laceration. Troponin-HS flat, EKG with T wave changes.Presentation concerning for NSTEMI type I vs type II in setting of hypertensive urgency. Optimizinganti- hypertensive agents. TTE showed EF 69% with no significant changes from prior TTE in 2018. Underwent NST on 06/07/2022 w/ lateral wall ischemia. NPO for [facility] today Plan: #NSTEMI type I vs type II #Hx of ASCVD s/p CABG x 4 (DAUGHERTY to LAD, SVG to OM, SVG to Diag, ANTONIO to RCA) in 2014 Monitor telemetry for arrhythmias S/p ASA 325 mg, continue ASA 81 mg daily S/p Plavix 300 mg load; continue daily plavix dosing for now; will DC if no stents placed during cath Continue metoprolol 12.5mg Q6 Hx of intolerance to statin; on Praluent at home Continue Zetia Nitro prn Formal TTE as above Consider Zio patch at discharge NST 06/07 abnormal - NPO for [facility] today ?? #Hypertensive emergency: likely 2/2 medications non compliance BP: (138-163)/(42-70) recent BP range BP was >250/122 on presentation, improved s/p multiple doses of IV labetalol Amlodipine 10 mg daily Losartan 100mg daily IV hydralazine prn SBP > 160 Monitor BP readings ?? #Fall: likely mechanical as per hx VS 2/2 hypertensive crisis; Less likely neurogenic or arrhythmogenic # Hx of cervical myelopathy Fall precautions PT/OT consulted Trauma work up in OSH was negative Not a candidate for spinal surgery per neurosurgery given risk factors Tele monitoring ?? #Hx of prediabetes: A1c 5.6 Monitor FSG #Chronic R zuluaga wound Wound care consult Appreciate reccs Code status: Full code DVT prophylaxis- Ambulate Discussed with MD Demetri Silva PA 06/08/2022 Pager: [phone] Associated attestation - Sherita Rollins MD - 06/08/2022 4:34 PM EDT Feeling well this morning Able to ambulate to bathroom with a walker without problem Nuclear MPI images reviewed: moderate sized lateral wall perfusion abn Await for LHC today ZioPatch on discharge * Cecy Regalado OT - 06/07/2022 3:37 PM EDT 06/07/22 0469 Evaluation & Treatment Document Type contact Total Minutes, Occupational Therapy 0 Comment, Session Not Performed Order recieved and chart reviewed. Met with PT who reports that she is independent and at baseline. Pt reported that she did have difficulty with R sock from prior kneesurgeries; provided with sock aid and educated on use. Pt able to carryover indepenently. Pt ambulating with cane. Plan to monitor and see for full OT evaluation if further indicated or requested. 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 Others werebusy evaluating her. Assessment: Called out her name and she did not respond. She appeared to be sleeping soundly. Intervention and Outcome: I attempted to visit Lemuel two times. She was unavailable and appeared comfortable sleeping. Follow-up: Will ask unit clay mixer to follow up on Tuesday Time in Direct Care: 15 minutes Cheryl You 06/07/2022 * Cynthia Cook, PT - 06/07/2022 11:44 AM EDT Physical Therapy Evaluation Patient profile: Lemuel Amador is a 86 y.o. female with PMH of ASCVD s/p CABG x 4 in 09/2014 ( LIMAto LAD, SVG to OM, SVG to diag, ANTONIO to RCA), HTN, prediabetes, asthma, cervical myelopathy, radiculopathy and right sided weakness who presented to [facility] after a fall at home. Patient with the following active problems: Past Medical History: Diagnosis Date ??? Asthma ??? Coronary artery disease ??? Hypertension ??? Lumbar radiculopathy ??? Median nerve neuropathy ??? Right foot drop ??? Statin intolerance ??? Ulnar nerve neuropathy Past Surgical History: Procedure Laterality Date ??? CARPAL TUNNEL RELEASE ??? HYSTERECTOMY, TOTAL ABDOMINAL ??? KNEE SURGERY ??? PRO CABG, ARTERIAL, TWO N/A 07/24/2015 @CABG, USING 2 CORONARY ARTERIAL GRAFTS performed by Tavon Alves MD at [facility] MAIN OR ??? PRO CABG, ARTERY-VEIN, TWO N/A 07/24/2015 @CABG, TWO VENOUS GRAFTS & ARTERIAL GRAFT performed by Tavon Alves MD at [facility] MAIN OR ??? PRO ENDOSCOPY W/VIDEO-ASST VEIN HARVEST, CABG N/A 07/24/2015 ENDOSCOPIC HARVEST VEIN(S) FOR CABG performed by Tavon Alves MD at [facility] MAIN OR ??? TONSILLECTOMY Active Non-Hospital Problems Diagnosis ??? Status post coronary artery bypass grafting ??? CAD (coronary artery disease) ??? Hypertension ??? LUNA (dyspnea on exertion) ??? Muscle cramps ??? Asthma ??? Actinic keratosis ??? Verruca vulgaris ??? 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 IND with ADLs and IADLs. 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 Regularly goes to outpatient physical therapy for back pain & balance. Equipment at home: cane Support at home: local daughter lives 5 miles away Precautions/Special Considerations: full code, bleeding precautions Lines: cardiac monitoring Diet: NPO Mobility and Positioning Recommendations: ?? Pt. to utilize cane and supervision for ambulation and transfers with nursing. ?? Please encourage up to chair for meal times as able. ?? Pt encouraged to ambulate frequently with staff, getting into the bathroom for toileting and walking out in the harris >/= 3 times daily as able. Subjective: ???YES! Let's go for a walk. Yesterday I asked but they wouldn't let me?? Objective: Pt seen for evaluation today. Pain: no c/o pain during session, but reports she has chronic back pain at baseline Vital Signs: VSS Mental Status: alert, oriented to person, place, and time Skin: facial ecchymosis from fall Musculoskeletal: ROM: WNL Strength: WFL; notably RLE is weaker than LLE at baseline, however RLE still remains 4/5 on MMTs Bed Mobility: Supine to Sit: IND Sit to Supine: IND Transfers: Sit to Stand: supervision with cane Stand to Sit: supervision with cane Gait: Distance: 160 ft Device used: cane Level of assist: supervision Gait mechanics: Presents with limited foot clearance (VICTORINO but RLE more significant), decreased gerardo, decreased step length , lateral trunk lean towards stance limb , trendelenburg and wide TARSHA Balance: Sitting Static: good Sitting Dynamic: good Standing Static: good with cane Standing Dynamic / Gait: fair+ with cane; no [id number] observed but some gait deviations may impair balance capabilities Education: patient has been educated on Bed mobility, Transfers, Safety , Precautions/protocol, Gait , Role of therapy and Discharge planning and verbalizes and demonstrates understanding. Patient status, treatment, and mobility recommendations discussed with nursing. Assessment: Lemuel Amador was seen today for physical therapy evaluation. Patient tolerated therapy well and demonstrated ability to perform all functional activities safely without assist. AlthoughPatient presents with mild strength, endurance, and balance deficits, she appears to be at her functional baseline. As a result she requires no additional IP PT and will be appropriate for d/c home once medically-ready. Recommend continuing to work with outpatient PT to further improve deficits. Discharge Recommendations: Based on the current findings, Anticipated Discharge Disposition (PT): home with outpatient therapyservices when medically ready for hospital discharge. Consult Recommendations: No other consults recommended at this time. Equipment needs: Anticipated Equipment Needs at Discharge (PT): None Goals: To be achieved by 06/07/22: ALL MET 1. Pt. to perform bed mobility independently. 2. Pt. to perform transfers with supervision using a straight cane. 3. Pt. to ambulate >100 feet with supervision using a a straight cane. 4. Pt. to demonstrate no [id number] during dynamic activities Plan: Therapy Frequency (PT): once for therapy including gait training, patient/family education and transfer training. Patient/family understand and agree with plan as stated above. 2017 PT Evaluation Code Rationale: ?? Diagnosis & Pertinent Co-Morbidities, personal factors, and present illness affecting Plan of Care: (see above); Additional personal factors or co- morbidities that impact plan: ?? Total # of Factors: 0 1-2 3+ x ?? Examination of body system impairments, functional limitations and behaviors, and/or participation restrictions. Addressing 1-2 elements Addressing 3 + elements x Addressing 4 + elements ?? Clinical presentation: See assessment above. Stable/Uncomplicated Evolving/Fluctuating Symptoms Unstable/Unpredictable x ?? Clinical decision making of low complexity based on pt's functional performance as outlined in this evaluation. Time IN / OUT: 0299-6715 Total Minutes, Physical Therapy: 27 Cynthia Cook DPT Pager: [phone] Physical Therapy Inpatient Rehabilitation Department * Dmeetri Rivera PA - 06/07/2022 8:16 AM EDT Images from the original note were not included. Inpatient Cardiology Progress Note Patient Name: Lemuel Amador Service: FIELD INTERVIEWER / PA Responsible Attending: Sherita Rollins MD Reason for continued hospitalization: Evaluation and management of hypertensive crisis Chest pain s/p abnormal NST 06/07 Medication adjustments Active Problems: Active Hospital Problems Diagnosis ??? NSTEMI (non-ST elevated myocardial infarction) ??? Hypertensive emergency ??? Frequent falls Resolved Hospital Problems No resolved problems to display. Interval History: No acute events overnight. Had NST this morning that showed lateral wall ischemia. Plan for [facility] tomorrow. Review of Systems: Review of Systems Constitutional: Negative. HENT: Positive for facial swelling (secondary to recent fall). Eyes: Brusing Respiratory: Negative. Negative for cough and shortness of breath. Cardiovascular: Negative. Gastrointestinal: Negative. Genitourinary: Negative. Musculoskeletal: Negative. Skin: Positive for color change (bruising). Neurological: Positive for syncope and weakness. Psychiatric/Behavioral: Negative. All other systems reviewed and are negative. Telemetry: HR: 55-70s Sinus bradycardia and sinus rhythm Meds: Scheduled Meds: ??? amLODIPine 10 mg Oral Daily ??? fluticasone propion-salmeteroL 1 puff Inhalation BID ??? losartan 100 mg Oral Daily ??? aspirin EC 81 mg Oral Daily ??? ezetimibe 10 mg Oral Daily ??? sodium chloride 0.9 % (flush) 5 mL Intravenous BID ??? metoproloL tartrate 12.5 mg Oral Q6H BRIANA Continuous Infusions: PRN Meds:technetium (Tc-99m) sestamibi, sodium chloride 0.9 % (flush), nitroGLYcerin, acetaminophen, hydrALAZINE Physical Exam: Vital Signs: Last value Range last 24 hrs Temperature Temp: 36.7 ??C (98.1 ??F) Temp: [36.7 ??C (98.1 ??F)-37 ??C (98.6 ??F)] Heart Rate Heart Rate: 66 Heart Rate: [52-72] Blood Pressure BP: 148/40 BP: (130-196)/(38-73) Respiratory Rate Resp: 17 Resp: [16-18] SpO2 SpO2: 95 % SpO2: [95 %-96 %] Physical Exam Vitals and nursing note reviewed. Constitutional: General: She is not in acute distress. HENT: Head: Normocephalic. Comments: Facial bruising Eyes: Comments: Periorbital bruising Cardiovascular: Rate and Rhythm: Normal rate and regular rhythm. Pulses: Normal pulses. Heart sounds: Normal heart sounds, S1 normal and S2 normal. No murmur heard. Pulmonary: Effort: Pulmonary effort is normal. Breath sounds: Normal breath sounds. No rales. Abdominal: General: Abdomen is flat. Palpations: Abdomen is soft. Tenderness: There is no guarding. Skin: General: Skin is dry. Findings: Bruising and wound present. Neurological: General: No focal deficit present. Mental Status: She is alert and oriented to person, place, and time. Psychiatric: Mood and Affect: Mood normal. Judgment: Judgment normal. Lab Comments: Recent Labs 06/07/2242206/06/2241806/05/2242 WBC 7.3 7.2 7.3 HGB 13.0 12.8 12.9 HCT 40.6 39.3 39.6 PLATELET 196 194 177 No results for input(s): INR in the last 168 hours. Recent Labs 06/07/2242206/06/2241806/05/2242 NA 139 140 141 K 3.8 3.8 3.3* CL 108* 108* 107 CO2 23 BUN 21* 16 12 CREATININE 0.76 0.77 0.80 No results for input(s): AST, ALT, ALKPHOS, BILITOT, BILIDIR in the last 168 hours. Recent Labs 06/07/2242206/06/2241806/05/2242 CALCIUM 8.8 9.0 8.7 No results for input(s): CK, TROPONINT in the last 168 hours. Pertinent Radiographic/Diagnostic Results: NST 06/07/2022 FINDINGS: At rest, perfusion is within normal limits. At stress, there is a moderate intensity basilar to mid lateral wall perfusion defect suggestive of ischemia. ?? Myocardial function: There is normal wall thickening and wall motion. Left ventricular ejection fraction: 58 % (normal greater than than 50%). ?? IMPRESSION 1. Lateral wall ischemia 2. Normal left ventricular ejection fraction TTE(06/04/22) Biventricular function is normal with LVEF of 69% by Sanchez's biplane and no wall motion abnormalities. LV filling pressure is elevated. PASP 36 mm Hg (assuming RA pressure 8 mm Hg).The left atrium is moderately dilated. The right atrium is normal.There is no hemodynamically significant valvular disease present. Compared to prior echo 12/19/2018, no significant changes have occured. EKG(06/04/22) Normal sinus rhythm with premature supraventricular complex rate 71 Left axis deviation Diagnostics from OSH CT Head(06/03/2022) No acute intracranial findings but showed soft frontal scalp soft tissue edema/hematoma with right frontal scalp laceration. Previous Diagnostics TTE (12/2018) EF 60-65% RV systolic function normal LV findings consistent with diastolic dysfunction Assessment: Lemuel Amador is a 86 y.o. female has a PMH of ASCVD s/p CABG x 4 in 09/2014 ( DAUGHERTY to LAD, SVG to OM, SVG to diag, ANTONIO to RCA), HTN, prediabetes, asthma, cervical myelopathy, radiculopathy and right sided weakness who presented to [facility] after multiple falls over the past months at home. Pt denies ever losing consciousness; However, reports loss of coordination between head and legs. CT head from OSH negative for acute intracranial bleed but showed edemahematoma with R frontal scalp laceration. Troponin-HS flat, EKG with T wave changes. Presentation concerning for NSTEMI type I vs type II in setting of hypertensive urgency. optimizing anti-hypertensive agents. TTE showed EF 69% with no significant changes from prior TTE in 2018. Underwent NST on 06/07/2022 w/ lateral wall ischemia. NPO at [place] for [facility] tomorrow. #NSTEMI: Likely type II in the setting of hypertensive emergency Vs type I #Hx of ASCVD s/p CABG x 4 (DAUGHERTY to LAD, SVG to OM, SVG to Diag, ANTONIO to RCA) in 2015 - Monitor on Tele - Monitor for VT (given uncertainty of LOC with fall) - S/p ASA 325 mg, continue ASA 81 mg daily - continue metoprolol 12.5mg Q6 - hx of intolerance to statin; on Praluent at home - Resume zetia ( pt self dc'ed it 1 month ago) - Nitro prn - Formal TTE as above - Consider Zio patch at discharge - NST 06/07 abnormal - NPO at [facility] for [facility] tomorrow ? #Hypertensive emergency: likely 2/2 medications non compliance - BP was >250/122 on presentation, improved s/p multiple doses of IV labetalol - Amlodipine 10 mg daily - Continue Losartan 100mg daily - IV hydralazine prn SBP > 160 - monitor BP ?? #Fall: likely mechanical as per hx Vs 2/2 hypertensive crisis Less likely neurogenic or arrhythmogenic # Hx of cervical myelopathy - Fall precautions - PT/OT consulted - Trauma work up in OSH was negative - Not a candidate for spinal surgery as per neurosurgery given risk factors. ? #Hx of prediabetes: - A1c 5.6 - Monitor #Chronic R zuluaga wound - Wound care consult Code status: Full code DVT prophylaxis- Ambulate; fully ambulatory Discussed with MD Demteri Silva PA 06/07/2022 Pager: [phone] * JessicaAquiles E - 06/06/2022 12:34 PM EDT Images from the original note were not included. Inpatient Cardiology Progress Note Patient Name: Lemuel Amador Service: FIELD INTERVIEWER / PA Responsible Attending: Sherita Rollins MD Reason for continued hospitalization: Evaluation and management of hypertensive crisis Medication adjustments Active Problems: Active Hospital Problems Diagnosis ??? NSTEMI (non-ST elevated myocardial infarction) ??? Hypertensive emergency ??? Frequent falls Resolved Hospital Problems No resolved problems to display. Interval History: No acute changes overnight. Hypertensive overnight (147-204)/(50-70) on Losartan 100mg and Norvasc 5mg. Requiring PRN hydralazine IV for HTN. Upon my assessment this morning, pt is not in acute distress, AAOx3, denies any current chest pain, SOB, lightheadedness, dizziness, or syncope. Moderate swelling and bruising noted on bilateral periorbital regions with a laceration to right frontal. No sustained runs of ectopy noted on telemetry. Pt concern about getting out of the hospital on time to catch a flight out of state on . Review of Systems: Review of Systems Constitutional: Negative. HENT: Positive for facial swelling (secondary to recent fall). Eyes: Brusing Respiratory: Negative. Negative for cough and shortness of breath. Cardiovascular: Negative. Gastrointestinal: Negative. Genitourinary: Negative. Musculoskeletal: Negative. Skin: Positive for color change (bruising). Neurological: Positive for syncope and weakness. Psychiatric/Behavioral: Negative. All other systems reviewed and are negative. Telemetry: HR: 55-70s Sinus bradycardia and sinus rhythm Meds: Scheduled Meds: ??? fluticasone propion-salmeteroL 1 puff Inhalation BID ??? losartan 100 mg Oral Daily ??? amLODIPine 5 mg Oral Daily ??? aspirin EC 81 mg Oral Daily ??? ezetimibe 10 mg Oral Daily ??? sodium chloride 0.9 % (flush) 5 mL Intravenous BID ??? metoproloL tartrate 12.5 mg Oral Q6H BRIANA Continuous Infusions: PRN Meds:sodium chloride 0.9 % (flush), nitroGLYcerin, acetaminophen, hydrALAZINE Physical Exam: Vital Signs: Last value Range last 24 hrs Temperature Temp: 37 ??C (98.6 ??F) Temp: [36.9 ??C (98.4 ??F)-37.3 ??C (99.1 ??F)] Heart Rate Heart Rate: 59 Heart Rate: [50-69] Blood Pressure BP: (!) 151/38 BP: (117-204)/(38-80) Respiratory Rate Resp: 18 Resp: [16-21] SpO2 SpO2: 96 % SpO2: [92 %-96 %] Physical Exam Vitals and nursing note reviewed. Constitutional: General: She is not in acute distress. HENT: Head: Normocephalic. Comments: Facial bruising Eyes: Comments: Periorbital bruising Cardiovascular: Rate and Rhythm: Normal rate and regular rhythm. Pulses: Normal pulses. Heart sounds: Normal heart sounds, S1 normal and S2 normal. No murmur heard. Pulmonary: Effort: Pulmonary effort is normal. Breath sounds: Normal breath sounds. No rales. Abdominal: General: Abdomen is flat. Palpations: Abdomen is soft. Tenderness: There is no guarding. Skin: General: Skin is dry. Findings: Bruising and wound present. Neurological: General: No focal deficit present. Mental Status: She is alert and oriented to person, place, and time. Psychiatric: Mood and Affect: Mood normal. Judgment: Judgment normal. Lab Comments: Recent Labs 06/06/2241806/05/224206/04/222121 WBC 7.2 7.3 8.1 HGB 12.8 12.9 13.2 HCT 39.3 39.6 41.0 PLATELET 194 177 184 No results for input(s): INR in the last 168 hours. Recent Labs 06/06/2241806/05/224206/04/22 1831 NA 140 141 141 K 3.8 3.3* 3.8 CL 108* 107 106 CO2 23 23 24 BUN 16 12 13 CREATININE 0.77 0.80 0.75 No results for input(s): AST, ALT, ALKPHOS, BILITOT, BILIDIR in the last 168 hours. Recent Labs 06/06/2241806/05/223 06/04/22 1831 CALCIUM 9.0 8.7 8.8 No results for input(s): CK, TROPONINT in the last 168 hours. Pertinent Radiographic/Diagnostic Results: TTE(06/04/22) Biventricular function is normal with LVEF of 69% by Sanchez's biplane and no wall motion abnormalities. LV filling pressure is elevated. PASP 36 mm Hg (assuming RA pressure 8 mm Hg).The left atrium is moderately dilated. The right atrium is normal.There is no hemodynamically significant valvular disease present. Compared to prior echo 12/19/2018, no significant changes have occured. EKG(06/04/22) Normal sinus rhythm with premature supraventricular complex rate 71 Left axis deviation Diagnostics from OSH CT Head(06/03/2022) No acute intracranial findings but showed soft frontal scalp soft tissue edema/hematoma with right frontal scalp laceration. Previous Diagnostics TTE (12/2018) EF 60-65% RV systolic function normal LV findings consistent with diastolic dysfunction Assessment: Lemuel Amador is a 86 y.o. female has a PMH of ASCVD s/p CABG x 4 in 09/2014 ( DAUGHERTY to LAD, SVG to OM, SVG to diag, ANTONIO to RCA), HTN, prediabetes, asthma, cervical myelopathy, radiculopathy and right sided weakness who presented to [facility] after multiple falls over the past months at home. Pt denies ever losing consciousness; However, reports loss of coordination between head and legs. CT head from OSH negative for acute intracranial bleed but showed edemahematoma with R frontal scalp laceration. Troponin-HS flat, EKG with T wave changes. Given the hypertensive presentation, this is likely an NSTEMI type II. Will optimize anti-hypertensive agents, and use PRN hydralazine. TTE yesterday showed EF 69% with no significant changes from prior TTE in 2018. Will consider nuclear stress test tomorrow and Zio patch for arrhyhtmia monitoring given recent falls from unknown etiologies. #NSTEMI: Likely type II in the setting of hypertensive emergency Vs type I #Hx of ASCVD s/p CABG x 4 (DAUGHERTY to LAD, SVG to OM, SVG to Diag, ANTONIO to RCA) in 2014 - Monitor on Tele - Monitor for VT (given uncertainty of LOC with fall) - S/p ASA 325 mg, continue ASA 81 mg daily - continue metoprolol 12.5mg Q6 - hx of intolerance to statin. - Resume zetia ( pt self dc'ed it 1 month ago) - on Alirocumab at home - Nitro prn - LDL 50 HDL 48 on home Zetia - Formal TTE - Consider nuclear stress test - Consider Zio patch at discharge ? #Hypertensive emergency: likely 2/2 medications non compliance - BP was >250/122 on presentation, improved s/p multiple doses of IV labetalol - Increase Amlodipine to 10 mg daily - Continue Losartan to 100mg daily tomorrow - IV hydralazine prn SBP< 160 - monitor BP ?? #Fall: likely mechanical as per hx Vs 2/2 hypertensive crisis Less likely neurogenic or arrhythmogenic # Hx of cervical myelopathy - Pending orthostatics - Fall precautions - PT/OT consult once acute issues improves - Trauma work up in OSH was negative - Not a candidate for spinal surgery as per neurosurgery given risk factors. ? #Hx of prediabetes: - A1c 5.6 - Monitor #Chronic R zuluaga wound - Wound care consult Discussed with Sherita Rollins MD and VANCE Wilks APRN-S 06/06/2022 APP1 pager# [phone] Associated attestation - Sherita Rollins MD - 06/06/2022 4:08 PM EDT Feeling well BP still high at times No CP No tele events TTE showed normal LVEF 69% Increase amlodipine to 10 mg daily Continue to monitor BP Nuclear MPI tomorrow ZioPatch as outpt. Possible discharge on Tuesday. * Aquiles Lopez - 06/05/2022 1:44 PM EDT Images from the original note were not included. Inpatient Cardiology Progress Note Patient Name: Lemuel Monacolionel Service: FIELD INTERVIEWER / PA Responsible Attending: Sherita Rollins MD Reason for continued hospitalization: Evaluation and management of hypertensive crisis Medication adjustments Active Problems: Active Hospital Problems Diagnosis ??? NSTEMI (non-ST elevated myocardial infarction) ??? Hypertensive emergency ??? Frequent falls Resolved Hospital Problems No resolved problems to display. Interval History: Patient admitted overnight for hypertensive crisis and recent traumatic falls at home. No acute changes overnight. Still hypertensive overnight (150-190)/(50-70) On Losartan 50mg and Norvasc 5mg. Upon my assessment this morning pt is not in acute distress, AOx3, denies any currentchest pain, SOB, lightheadedness, dizziness, or syncope. Moderate swelling and bruising noted on bilateral periorbital regions with a laceration to right frontal. Does endorse history of sharp R-sided chest pain with associated pin pricking sensation that's self-limiting. Review of Systems: Review of Systems Constitutional: Negative. HENT: Positive for facial swelling (secondary to recent fall). Eyes: Brusing Respiratory: Negative. Negative for cough and shortness of breath. Cardiovascular: Negative. Gastrointestinal: Negative. Genitourinary: Negative. Musculoskeletal: Negative. Skin: Positive for color change (bruising). Neurological: Positive for syncope and weakness. Psychiatric/Behavioral: Negative. All other systems reviewed and are negative. Telemetry: HR: 40-70s Sinus bradycardia and sinus rhythm Meds: Scheduled Meds: ??? fluticasone propion-salmeteroL 1 puff Inhalation BID ??? [START ON 06/06/2022] losartan 100 mg Oral Daily ??? amLODIPine 5 mg Oral Daily ??? aspirin EC 81 mg Oral Daily ??? ezetimibe 10 mg Oral Daily ??? sodium chloride 0.9 % (flush) 5 mL Intravenous BID ??? metoproloL tartrate 12.5 mg Oral Q6H BRIANA Continuous Infusions: PRN Meds:sodium chloride 0.9 % (flush), nitroGLYcerin, acetaminophen, hydrALAZINE Physical Exam: Vital Signs: Last value Range last 24 hrs Temperature Temp: 36.8 ??C (98.2 ??F) Temp: [36.6 ??C (97.9 ??F)-37.1 ??C (98.8 ??F)] Heart Rate Heart Rate: 63 Heart Rate: [58-66] Blood Pressure BP: 160/48 BP: (142-229)/(35-75) Respiratory Rate Resp: 17 Resp: [17-21] SpO2 SpO2: 96 % SpO2: [94 %-98 %] Physical Exam Vitals and nursing note reviewed. HENT: Head: Normocephalic. Comments: Facial bruising Eyes: Comments: Periorbital bruising Cardiovascular: Rate and Rhythm: Normal rate and regular rhythm. Pulses: Normal pulses. Heart sounds: Normal heart sounds. No murmur heard. Pulmonary: Effort: Pulmonary effort is normal. Breath sounds: Normal breath sounds. No rales. Abdominal: General: Abdomen is flat. Palpations: Abdomen is soft. Tenderness: There is no guarding. Skin: General: Skin is dry. Findings: Bruising and wound present. Neurological: General: No focal deficit present. Mental Status: She is alert and oriented to person, place, and time. Psychiatric: Mood and Affect: Mood normal. Judgment: Judgment normal. Lab Comments: Recent Labs 06/05/224206/04/22212106/04/221830 WBC 7.3 8.1 8.8 HGB 12.9 13.2 13.5 HCT 39.6 41.0 41.8 PLATELET 177 184 204 No results for input(s): INR in the last 168 hours. Recent Labs 06/05/224206/04/221830 NA 141 141 K 3.3* 3.8 CL 107 106 CO2 23 24 BUN 12 13 CREATININE 0.80 0.75 No results for input(s): AST, ALT, ALKPHOS, BILITOT, BILIDIR in the last 168 hours. Recent Labs 06/05/224206/04/221830 CALCIUM 8.7 8.8 No results for input(s): CK, TROPONINT in the last 168 hours. Pertinent Radiographic/Diagnostic Results: TTE Pending results EKG Normal sinus rhythm with premature supraventricular complex rate 71 Left axis deviation Diagnostics from OSH CT Head No acute intracranial findings but showed soft frontal scalp soft tissue edema/hematoma with right frontal scalp laceration. Previous Diagnostics TTE (12/2018) EF 60-65% RV systolic function normal LV findings consistent with diastolic dysfunction Assessment: Lemuel Amador is a 86 y.o. female has a PMH f ASCVD s/p CABG x 4 in 09/2014 ( DAUGHERTY to LAD, SVG to OM, SVG to diag, ANTONIO to RCA), HTN, prediabetes, asthma, cervical myelopathy, radiculopathy and right sided weakness who presented to [facility] after multiple falls over the past months at home.Pt denies every losing consciousness however reports loss of coordination between head and legs. CT head from OSH negative for acute intracranial bleed but showed edema/hematoma with R frontal scalp laceration. Currently CP free, Troponin-HS 28>27>28, EKG with T wave changes. Given the hypertensive presentation, this is likely an NSTEMI type II. Will optimize anti-hypertensive regimen, and use PRN hydralazine. Stop heparin IV. Pending TTE results. Will need to consider ischemic evaluation prior to discharge given recent falls and potential for arrhyhtmia etiologies. Currently stable. #NSTEMI: Likely type II in the setting of hypertensive emergency Vs type I #Hx of ASCVD s/p CABG x 4 (DAUGHERTY to LAD, SVG to OM, SVG to Diag, ANTONIO to RCA) in 2015 -Admit to cardiology -Monitor on Tele - Monitor for VT (given uncertainty of LOC with fall) -s/p ASA 325 mg, continue ASA 81 mg daily -continue metoprolol 12.5mg Q6 -hx of intolerance to statin. -Resume zetia ( pt self dc'ed it 1 month ago) -on Alirocumab at home -stop Heparin gtt (likely type II) -Nitro prn - LDL 50 HDL 48 on Zetia - Formal TTE - Consider ischemic w/u ? #Hypertensive emergency: likely 2/2 medications non compliance -BP was >250/122 on presentation, improved s/p multiple doses of IV labetalol - On Amlodipine 5mg daily - give additional Losartan 50mg today - Start Losartan to 100mg daily tomorrow - IV hydralazine prn -monitor BP ?? #Fall: likely mechanical as per hx Vs 2/2 hypertensive crisis Less likely neurogenic or arrhythmogenic # Hx of cervical myelopathy -Pending orthostatics -Fall precautions -PT/OT consult once acute issues improves -Trauma work up in OSH was negative -Not a candidate for spinal surgery as per neurosurgery given risk factors. ? #Hx of prediabetes: - A1c 5.6 -monitor FSG Discussed with Sherita Rollins MD and VANCE Wilks APRN-S 06/05/2022 APP1 pager# [phone] Associated attestation - Sherita Rollins MD - 06/05/2022 3:29 PM EDT 86 yo F known CABG in 2014, HTN presented with frequent falls. She denies LOC but could not clearly describe how she fell, but felt that she could not feel for her feet at times. TTE done today: normal LVEF 69% without RWMA, no sig change from prior TTE in 2019. Hs trop flat 28 BP better controlled, will closely monitor Uptitrate BP meds as tolerated Wound care consult (zuluaga ulcer) Nuclear MPI documented in this encounter H&P Notes * Rito Brooks MD - 06/04/2022 6:20 PM EDT Images from the original note were not included. Cardiology History and Physical Patient Name: Lemuel Amador Date of : 1935 Age: 86 y.o. Hospital Admit Date: 06/04/2022 Inpatient Attending: Dr. Rollins PCP: Jacob Foley DO Presenting Diagnosis/Chief Complaint: NSTEMI/Hypertensive emergency. Transferred from [facility] for further management. History of Present Illness: Lemuel Amador is a 86 y.o. female with PMH of ASCVD s/p CABG x 4 in 09/2014 ( DAUGHERTY to LAD, SVG to OM, SVG to diag, ANTONIO to RCA), HTN, prediabetes, asthma, cervical myelopathy, radiculopathy and rightsided weakness who presented to [facility] after a fall at home. As per pt she fell in her bedroom hitting her head with the dresser with no LOC, dizziness, lightheadedness, palpitations, chest pain, bowel or urinary incontinence. Pt reports frequent episodes of falls, almost once or twice a month. She states that she gets these moments where she loss coordination between the head and legs falls with no other preceding symptoms or LOC. She has cervical myelopathy with right sided weakness, follows with neurology. Neurosurgery declined her surgery as she ishigh risk. Pt reported episodes of right sided chest pain radiating to the central of chest. Pain was sharp, lasting for a few seconds before resolving associated with pin pricking sensation in the right arm. Pt reports tripping in bathroom hitting her head on the dresser. She was complaining of headache. Pt also reported brief episodes of right sides chest pain radiating to the right arm. Denies shortness of breath, nausea, vomiting, diaphoresis, dizziness, lightheadedness, weakness/numbness in the extremities. Her BP was elevated to 257/122. Labs with wbc 11>10, H&H 14.8/46, Plt 198. Na 142, K 3.6, BUN 15, Cr 0.9, AST 27, ALT 29, Trop I 98>161. EKG sinus, LAD, TWI in I, AVL ( old). CT head with no acute intracranial findings but showed soft frontal scalp soft tissue edema/hematoma with right frontal scalp laceration. Pt received IV labetalol 20 mg x 2, 10 mg x 2, 5 mg x 1, SL nitro x 2, ASA 324 mg and is transferred here for further management. At the time of my evaluation, she denies chest pain, shortness of breath. She does endorses significant stress recently as per eldest daughter few days ago and she will be going for her service next week in [place]. Also she doesn't have a PCP and hasn't seen her primary operations/dispatch Dr. Tilley in a couple of years. She lives alone, walks independently, had 3 daughter ( one just ) REVIEW OF SYSTEMS: Constitutional: weight loss, fatigue, weakness. Psychological: Anxiety / Depression Ophthalmic: blurred vision or watery or red eyes. ENT: Negative for ear discharge or running nose or cold or throat swelling. Allergy: negative for itchy/watery eyes Heme: Negative for bleeding, bruising, fatigue, jaundice, night sweats Endocrine: negative for polydipsia/polyuria/ heat intolerance Respiratory: As as HPI CVS: As in HPI GI: No abd pain, change in bowel habits, or black or bloody stools Genitourinary: No dysuria, trouble voiding, or hematuria Neurological: Negative for dizziness, seizures, syncope, facial asymmetry, speech difficulty, light-headedness, numbness and headaches. Hematological: Negative. MSK: negative for joint pain, joint stiffness or joint swelling Psychiatric/Behavioral: Negative. Previous Diagnostics: Echo: 12/2018 Cath: 06/2015 Coronary Angiography: Dominance: Right Left Main The left main was normal. Left Anterior Descending There was mild diffuse disease of the entire vessel segment of the left anterior descending artery (LAD). The mid segment of the LAD had a diffuse 60% stenosis. The distal vessel was large. There were multiple discrete 80% stenoses of the mid segment of the first diagonal branch (Diagonal 1) of the LAD. Distal flow was normal. The distal vessel was moderate in size. Left Circumflex There was mild diffuse disease of the entire vessel segment of the left circumflex artery (LCX). The proximal segment of the LCX had a single discrete total occlusion. Distal flow was via collaterals from the LAD and collaterals from the RCA. The distal vessel was poorly visualized. Right Coronary Artery There was mild diffuse disease of the entire vessel segment of the right coronary artery (RCA). The ostial segment of the RCA had a single discrete 60% stenosis. Vascular Access: Vascular Access Angiogram: A selective angiogram at the right femoral artery revealed no significant obstructive disease. Vascular Access Management: A 6 Fr Perclose was deployed at the right femoral artery access site. This device was successful. Conclusions: * Three vessel coronary artery disease (LAD, LCX and RCA) Past Medical History: Past Medical History: Diagnosis Date ??? Asthma ??? Coronary artery disease ??? Hypertension ??? Lumbar radiculopathy ??? Median nerve neuropathy ??? Right foot drop ??? Statin intolerance ??? Ulnar nerve neuropathy Surgical History/Problems: Past Surgical History: Procedure Laterality Date ??? CARPAL TUNNEL RELEASE ??? HYSTERECTOMY, TOTAL ABDOMINAL ??? KNEE SURGERY ??? PRO CABG, ARTERIAL, TWO N/A 07/24/2015 @CABG, USING 2 CORONARY ARTERIAL GRAFTS performed by Tavon Alves MD at [facility] OR ??? PRO CABG, ARTERY-VEIN, TWO N/A 07/24/2015 @CABG, TWO VENOUS GRAFTS & ARTERIAL GRAFT performed by Tavon Alves MD at [facility] OR ??? PRO ENDOSCOPY W/VIDEO-ASST VEIN HARVEST, CABG N/A 07/24/2015 ENDOSCOPIC HARVEST VEIN(S) FOR CABG performed by Tavon Alves MD at [facility] OR ??? TONSILLECTOMY Significant Family History: Family History Problem Relation Age of Onset ??? Colorectal Cancer Daughter ??? Breast Cancer Mother 52 ??? Pancreatic Cancer Father 78 ??? Myocardial Infarction Daughter 50 Social History: Social History Socioeconomic History ??? Marital status: Spouse name: Not on file ??? Number of children: Not on file ??? Years of education: Not on file ??? Highest education level: Not on file Occupational History ??? Not on file Tobacco Use ??? Smoking status: Never Smoker ??? Smokeless tobacco: Never Used Vaping Use ??? Vaping Use: Never used Substance and Sexual Activity ??? Alcohol use: Yes Comment: Social ??? Drug use: No ??? Sexual activity: Not on file Comment: deferred Other Topics Concern ??? 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 She has 3 children all daughters and 4 grandchildren 2 girls and 2 boys. 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 She enjoys the bed and breakfast, [place],reading. 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 Gen/Constitutional: Comfortable, NAD HEENT: Bilateral supraorbital ecchymosis, left periortibal swelling, 3 cm laceration of the right forehead. MAURICIO, EOMI, No conjunctival pallor or scleral icterus, JVP not elevated Cardiac/CVS: RRR, normal S1/S2. No S3 or S4, no m/g/r Pulm/Chest: CTAB, no wheezing or crackles Abd/GI: Soft., non tender, non distended, BS+ Musculoskeletal: no pitting edema, Pulses palpable B/L, no calf tenderness, swelling, or erythema. Neuro/COMMERCIAL APPRAISER: AAO x 3, strenght 4/5 in RUE, 5-/% in RLE Skin/Integumentary: No ulcer or rash Diagnostics: EKG: sinus rhythm, LAD, LAFB, subtle STD in V5-V6. No current facility-administered medications on file prior to encounter. Current Outpatient Medications on File Prior to Encounter Medication Sig Dispense Refill ??? ezetimibe (Zetia) 10 mg Tablet Take 1 tablet by mouth daily. 90 tablet 3 ??? nitroGLYcerin (Nitrostat) 0.4 mg Tablet, Sublingual Place 1 tablet under the tongue every 5 minutes as needed for Chest pain. 90 tablet 12 ??? losartan (COZAAR) 100 mg Tablet Take 25 mg by mouth daily. ??? GLUCOSAMINE/METHYLSULFONYLMETH (GLUCOSAMINE MSM ORAL) Take 500 mg by mouth as needed. ??? aspirin 81 mg Tablet, Delayed Release (E.C.) Take 1 tablet by mouth daily. 30 tablet 3 ??? alirocumab (Praluent Pen) 75 mg/mL Pen Injector Inject 1 mL subcutaneously every 21 days. 2 mL 0 ??? amLODIPine (Norvasc) 5 mg Tablet Take 5 mg by mouth daily. ??? ubidecarenone (CO Q-10 ORAL) Take by mouth. ??? cholecalciferol, Vitamin D3, 10 mcg (400 unit) Capsule Take by mouth. Indications: one daily ??? Cod Liver Oil Oil Take 1 Dose by mouth. ??? CALCIUM ORAL Take 1 tablet by mouth daily. ??? FEVERFEW ORAL Take 1 tablet by mouth daily. ??? fluticasone-salmeterol (ADVAIR) 250-50 mcg/dose Disk with Device Inhale 1 puff into the lungs 2times daily. LABS: Recent Results (from the past 24 hour(s)) BMP w/fasting Glucose Result Value Ref Range Glucose Fasting 111 (H) 65 - 99 mg/dL BUN 13 8 - 18 mg/dL Creatinine 0.75 0.70 - 1.20 mg/dL Sodium 141 135 - 145 mmol/L Potassium 3.8 3.5 - 5.0 mmol/L Chloride 106 98 - 107 mmol/L CO2 24 22 - 31 mmol/L Anion Gap 11 5 - 15 mmol/L Calcium 8.8 8.5 - 10.5 mg/dL Estimated GFR 78 >=60 mL/min/1.73 m?? Heparin (unfractionated) Level Result Value Ref Range Heparin UFH Level 0.17 IU/mL Troponin Result Value Ref Range Troponin-T HS 28 (H) <=14 ng/L Hemogram Result Value Ref Range WBC 8.8 4.0 - 9.5 x10(3)/mcL RBC 5.00 4.00 - 5.21 x10(6)/mcL Hemoglobin 13.5 11.7 - 15.5 g/dL Hematocrit 41.8 35.7 - 45.8 % MCV 83.6 82.6 - 94.4 fL MCH 27.0 (L) 27.1 - 32.0 pg MCHC 32.3 31.7 - 35.0 g/dL Platelets 204 145 - 357 x10(3)/mcL RDWSD 43.6 37.0 - 46.0 fL RDWCV 14.4 (H) 11.5 - 14.1 % MPV 10.5 7.6 - 12.9 fL nRBC % Auto 0.0 % nRBC Abs Auto 0.000 0.000 - 0.000 x10(3)/mcL Differential, Automated Result Value Ref Range Neutrophils % 74.6 % Neutr Abs (ANC) 6.56 (H) 1.70 - 6.10 x10(3)/mcL Lymphocytes % 17.2 % Lymphocytes Abs 1.5 0.9 - 3.2 x10(3)/mcL Monocytes % 5.1 % Monocyte Abs 0.4 0.3 - 0.9 x10(3)/mcL Eosinophils % 2.6 % Eosinophils Abs 0.2 0.0 - 0.4 x10(3)/mcL Basophils % 0.3 % Basophils Abs 0.0 0.0 - 0.1 x10(3)/mcL Immature Gran % 0.20 % Ny Gran Abs 0.02 0.00 - 0.04 x10(3)/mcL TSH Result Value Ref Range TSH 2.93 0.27 - 4.20 mcIU/mL Troponin Result Value Ref Range Troponin-T HS 27 (H) <=14 ng/L Heparin (unfractionated) Level Result Value Ref Range Heparin UFH Level 0.31 IU/mL Hemogram Result Value Ref Range WBC 8.1 4.0 - 9.5 x10(3)/mcL RBC 4.94 4.00 - 5.21 x10(6)/mcL Hemoglobin 13.2 11.7 - 15.5 g/dL Hematocrit 41.0 35.7 - 45.8 % MCV 83.0 82.6 - 94.4 fL MCH 26.7 (L) 27.1 - 32.0 pg MCHC 32.2 31.7 - 35.0 g/dL Platelets 184 145 - 357 x10(3)/mcL RDWSD 43.6 37.0 - 46.0 fL RDWCV 14.5 (H) 11.5 - 14.1 % MPV 10.4 7.6 - 12.9 fL nRBC % Auto 0.0 % nRBC Abs Auto 0.000 0.000 - 0.000 x10(3)/mcL Differential, Automated Result Value Ref Range Neutrophils % 69.7 % Neutr Abs (ANC) 5.65 1.70 - 6.10 x10(3)/mcL Lymphocytes % 21.4 % Lymphocytes Abs 1.7 0.9 - 3.2 x10(3)/mcL Monocytes % 5.2 % Monocyte Abs 0.4 0.3 - 0.9 x10(3)/mcL Eosinophils % 3.3 % Eosinophils Abs 0.3 0.0 - 0.4 x10(3)/mcL Basophils % 0.2 % Basophils Abs 0.0 0.0 - 0.1 x10(3)/mcL Immature Gran % 0.20 % Ny Gran Abs 0.02 0.00 - 0.04 x10(3)/mcL Heparin (unfractionated) Level Result Value Ref Range Heparin UFH Level 0.33 IU/mL Hemogram Result Value Ref Range WBC 7.3 4.0 - 9.5 x10(3)/mcL RBC 4.81 4.00 - 5.21 x10(6)/mcL Hemoglobin 12.9 11.7 - 15.5 g/dL Hematocrit 39.6 35.7 - 45.8 % MCV 82.3 (L) 82.6 - 94.4 fL MCH 26.8 (L) 27.1 - 32.0 pg MCHC 32.6 31.7 - 35.0 g/dL Platelets 177 145 - 357 x10(3)/mcL RDWSD 43.0 37.0 - 46.0 fL RDWCV 14.4 (H) 11.5 - 14.1 % MPV 10.4 7.6 - 12.9 fL nRBC % Auto 0.0 % nRBC Abs Auto 0.000 0.000 - 0.000 x10(3)/mcL Differential, Automated Result Value Ref Range Neutrophils % 66.7 % Neutr Abs (ANC) 4.89 1.70 - 6.10 x10(3)/mcL Lymphocytes % 23.6 % Lymphocytes Abs 1.7 0.9 - 3.2 x10(3)/mcL Monocytes % 5.6 % Monocyte Abs 0.4 0.3 - 0.9 x10(3)/mcL Eosinophils % 3.4 % Eosinophils Abs 0.2 0.0 - 0.4 x10(3)/mcL Basophils % 0.4 % Basophils Abs 0.0 0.0 - 0.1 x10(3)/mcL Immature Gran % 0.30 % Ny Gran Abs 0.02 0.00 - 0.04 x10(3)/mcL Assessment and plan: Lemuel Amador is a 86 y.o. female with PMH of ASCVD s/p CABG x 4 in 09/2014 ( DAUGHERTY to LAD, SVG to OM, SVG to diag, ANTONIO to RCA), HTN, prediabetes, asthma, cervical myelopathy, radiculopathy and rightsided weakness who presented to [facility] after a fall at home likely mechanical resulting in external hematoma and small laceration on the forehead. Pt had right sided atypical sounding chest pain. She was hypertensive to 250/120 other vitals were stable. Labs with stable CBC, BMP, Trop I elevated 90>160. EKG with subtle STD in V5-V6. Pt received multiple doses of IV labetalol with improvement in BP. Trauma work up was unremarkable. Pt is currently chest pain free but her BP is still elevated. #NSTEMI: Likely type II in the setting of hypertensive emergency Vs type I #Hx of ASCVD s/p CABG x 4 (DAUGHERTY to LAD, SVG to OM, SVG to Diag, ANTONIO to RCA) in 2014 -Admit to cardiology -Monitor on Tele -Serial EKG, cycle trops -s/p ASA 325 mg, continue ASA 81 mg daily -hold off on P2Y12 inhibitors for now -start metoprolol -hx of intolerance to statin. -resume zetia ( pt self dc'ed it 1 month ago) -on Alirocumab -continue Heparin gtt -Nitro prn -ischemic evaluation, likely non invasive -check A1c, lipids, TSH -TTE #Hypertensive emergency: likely 2/2 medications non compliance -BP was >250/122 on presentation, improved s/p multiple doses of IV labetalol -resume amlodipine, increased losartan to 50 mg -BP is still elevated -IV hydralazine prn -monitor BP -uptitrate antihypertensives as indicated #Fall: likely mechanical as per hx Vs 2/2 hypertensive crisis Less likely neurogenic or arrhythmogenic # Hx of cervical myelopathy -check orthostats -fall precautions -PT consult once acute issues improves -Trauma work up in OSH was negative -Not a candidate for spinal surgery as per neurosurgery given risk factors. #Hx of prediabetes: -check A1c -monitor FSG #Code Status: Full #Diet: NPO after midnight for possible ischemic evaluation #DVT PPx: Heparin drip Rito Brooks MD 06/05/2022 Pager # [phone] documented in this encounter Miscellaneous Notes * Plan of Care - Valentina Arguelles RN - 06/09/2022 1:20 PM EDT Patient VSS, alert and oriented. AVS reviewed with patient. Patient verbalized understanding and all questions answered. IV removed per protocol, site CDI, dressing applied to site. Patient verbalized they had all belongings, brought down by [employer]ICE via wheelchair to [facility], daughter arriving for patient pickup to go home. No services at this time. Problem: Adult Inpatient Plan of Care Goal: Plan of Care Review Outcome: Outcome (s) achieved Goal: Patient-Specific Goal (Individualized) Outcome: Outcome (s) achieved Goal: Absence of Hospital-Acquired Illness or Injury Outcome: Outcome (s) achieved Goal: Optimal Comfort and Wellbeing Outcome: Outcome (s) achieved Goal: Readiness for Transition of Care Outcome: Outcome (s) achieved Problem: Fall Injury Risk Goal: Absence of Fall and Fall-Related Injury Outcome: Outcome (s) achieved Problem: Arrhythmia/Dysrhythmia (Cardiac Catheterization) Goal: Stable Heart Rate and Rhythm Outcome: Outcome (s) achieved Problem: Bleeding (Cardiac Catheterization) Goal: Absence of Bleeding Outcome: Outcome (s) achieved Problem: Contrast-Induced Injury Risk (Cardiac Catheterization) Goal: Absence of Contrast-Induced Injury Outcome: Outcome (s) achieved Problem: Embolism (Cardiac Catheterization) Goal: Absence of Embolism Signs and Symptoms Outcome: Outcome (s) achieved Problem: Ongoing Anesthesia/Sedation Effects (Cardiac Catheterization) Goal: Anesthesia/Sedation Recovery Outcome: Outcome (s) achieved Problem: Pain (Cardiac Catheterization) Goal: Acceptable Pain Control Outcome: Outcome (s) achieved Problem: Vascular Access Protection (Cardiac Catheterization) Goal: Absence of Vascular Access Complication Outcome: Outcome (s) achieved * Plan of Care - Deanna Wsetfall RN - 06/09/2022 6:49 AM EDT OUTCOME EVALUATION NOTE: OUTCOME SUMMARY: Patient AOx4, no reports of CP or SOB. Complaints of headache, see MAR. Remains on RA. SR-SB with PAC and PVCs on TELE. Right radial site CDI. Right femoral site had bleeding, manual pressure held for 5 minutes and then sandbag, site is currently soft and non-tender with no new bleeding noted. Patient refuses bed alarm. PLAN MOVING FORWARD: Continue to actively monitor. D/C planning as appropriate INDIVIDUALIZED FALL PREVENTION INTERVENTIONS: Patient-specific fall risk factors per assessment: [current deficits]: TELE wires, unfamiliar environment Assistance [level of assistance required for transfers and ambulation]: sba/ind Supervision [direct monitoring required during toileting and ADLs]: eyes Surveillance [continuous indirect monitoring]: TELE, purposeful rounding, call gómez within reach. Patient-specific fall prevention interventions for sensory deficits provided, if applicable: room near RN station, door open, non-skid socks on when OOB, lighting adjusted for specific tasks, bed in lowest position CARE PLAN GOAL OUTCOME EVALUATION: Ongoing Problem: Adult Inpatient Plan of Care Goal: Plan of Care Review Outcome: Ongoing (Interventions Implemented as Appropriate) Goal: Patient-Specific Goal (Individualized) Outcome: Ongoing (Interventions Implemented as Appropriate) Goal: Absence of Hospital-Acquired Illness or Injury Outcome: Ongoing (Interventions Implemented as Appropriate) Goal: Optimal Comfort and Wellbeing Outcome: Ongoing (Interventions Implemented as Appropriate) Goal: Readiness for Transition of Care Outcome: Ongoing (Interventions Implemented as Appropriate) Problem: Fall Injury Risk Goal: Absence of Fall and Fall-Related Injury Outcome: Ongoing (Interventions Implemented as Appropriate) Problem: Arrhythmia/Dysrhythmia (Cardiac Catheterization) Goal: Stable Heart Rate and Rhythm Outcome: Ongoing (Interventions Implemented as Appropriate) Problem: Bleeding (Cardiac Catheterization) Goal: Absence of Bleeding Outcome: Ongoing (Interventions Implemented as Appropriate) Problem: Contrast-Induced Injury Risk (Cardiac Catheterization) Goal: Absence of Contrast-Induced Injury Outcome: Ongoing (Interventions Implemented as Appropriate) Problem: Embolism (Cardiac Catheterization) Goal: Absence of Embolism Signs and Symptoms Outcome: Ongoing (Interventions Implemented as Appropriate) Problem: Ongoing Anesthesia/Sedation Effects (Cardiac Catheterization) Goal: Anesthesia/Sedation Recovery Outcome: Ongoing (Interventions Implemented as Appropriate) Problem: Pain (Cardiac Catheterization) Goal: Acceptable Pain Control Outcome: Ongoing (Interventions Implemented as Appropriate) Problem: Vascular Access Protection (Cardiac Catheterization) Goal: Absence of Vascular Access Complication Outcome: Ongoing (Interventions Implemented as Appropriate) * Plan of Care - Héctor Vaughan MD - 06/09/2022 6:28 AM EDT Post Cardiac Cath Note S: Patient reports no chest pain or shortness of breath. Patient reports no back pain, right groin AND right wrist pain O: No active bleeding noted at cath sites but dried blood noted at RFA. No hematoma, or tenderness noted. Right radial pulse intact but unable to feel right DP. Last value Range last 8 hrs Temperature Temp: 36.6 ??C (97.9 ??F) Temp: [36.6 ??C (97.9 ??F)-37 ??C (98.6 ??F)] Heart Rate Heart Rate: 59 Heart Rate: [55-63] Blood Pressure BP: 158/52 BP: (142-158)/(47-52) Respiratory Rate Resp: 18 Resp: [18] SpO2 SpO2: 96 % SpO2: [95 %-96 %] A/P. Post cardiac cath without complications. Héctor Vaughan MD 06/09/2022 * Plan of Care - Valentina Arguelles RN - 06/08/2022 6:31 PM EDT OUTCOME EVALUATION NOTE: OUTCOME SUMMARY: Pt NPO today, went to cath procedure today. Returned to unit with VSS, TR band removal on right wrist per protocol, right femoral incision site CDI, no signs of bleeding or hematoma either location. Laying flat post procedure per protocol. Pt refused Kcl dose earlier today, talked with provider about eating bananas as a good source of K. Pt also asked about arnica gel for bruising on face, provider was notified, but we do not have that here at pharmacy. PLAN MOVING FORWARD: Recovery from cath procedure, other interventions possible. INDIVIDUALIZED FALL PREVENTION INTERVENTIONS: Patient-specific fall risk factors per assessment: [current deficits]: generalized weakness, mobility (uses cane) Assistance [level of assistance required for transfers and ambulation]: SBA, walks with cane Supervision [direct monitoring required during toileting and ADLs]: SBA Surveillance [continuous indirect monitoring]: tele, O2 CPG GOAL OUTCOME EVALUATION: Problem: Adult Inpatient Plan of Care Goal: Plan of Care Review Outcome: Ongoing (Interventions Implemented as Appropriate) Goal: Patient-Specific Goal (Individualized) Outcome: Ongoing (Interventions Implemented as Appropriate) Goal: Absence of Hospital-Acquired Illness or Injury Outcome: Ongoing (Interventions Implemented as Appropriate) Goal: Optimal Comfort and Wellbeing Outcome: Ongoing (Interventions Implemented as Appropriate) Goal: Readiness for Transition of Care Outcome: Ongoing (Interventions Implemented as Appropriate) Problem: Fall Injury Risk Goal: Absence of Fall and Fall-Related Injury Outcome: Ongoing (Interventions Implemented as Appropriate) Problem: Arrhythmia/Dysrhythmia (Cardiac Catheterization) Goal: Stable Heart Rate and Rhythm Outcome: Ongoing (Interventions Implemented as Appropriate) Problem: Bleeding (Cardiac Catheterization) Goal: Absence of Bleeding Outcome: Ongoing (Interventions Implemented as Appropriate) Problem: Contrast-Induced Injury Risk (Cardiac Catheterization) Goal: Absence of Contrast-Induced Injury Outcome: Ongoing (Interventions Implemented as Appropriate) Problem: Embolism (Cardiac Catheterization) Goal: Absence of Embolism Signs and Symptoms Outcome: Ongoing (Interventions Implemented as Appropriate) Problem: Ongoing Anesthesia/Sedation Effects (Cardiac Catheterization) Goal: Anesthesia/Sedation Recovery Outcome: Ongoing (Interventions Implemented as Appropriate) Problem: Pain (Cardiac Catheterization) Goal: Acceptable Pain Control Outcome: Ongoing (Interventions Implemented as Appropriate) Problem: Vascular Access Protection (Cardiac Catheterization) Goal: Absence of Vascular Access Complication Outcome: Ongoing (Interventions Implemented as Appropriate) * Care Management - Torsten Jain RN - 06/08/2022 1:56 PM EDT OFFICE OF CARE MANAGEMENT PROGRESS NOTE LOS: Hospital Day 4 days Chart reviewed, care reviewed with primary team and at interdisciplinary rounds. Patient continues to meet inpatient level of care related to: Evaluation and management of hypertensive crisis Chest pain s/p abnormal NST 06/07 Awaiting [facility] Reason for Hospitalization per H&P or ID: 86 y.o.??female??with PMH of ASCVD s/p CABG x 4 in 09/2014 ( DAUGHERTY to LAD, SVG to OM, SVG to diag, ANTONIO to RCA), HTN, prediabetes, asthma, cervical myelopathy, radiculopathy and right sided weakness??who presented to [facility] after a fall at home. 24 hour events/ Interval hx per team: No acute events overnight. Had NST yesterday morning that showed lateral wall ischemia. Plan for [facility] today. Decision Maker: Self Functional status prior to admission: Independent Home Environment: Others in the home: alone. Current Living Arrangements: home/apartment/condo. Accessibility Concerns: Lives in a Bed and Breakfast , which is her own home. Her younger daughter lives 5 miles away. Her oldest daughter just passed from cancer.. 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 IND with ADLs and IADLs. 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 Regularly goes to outpatient physical therapy for back pain & balance. Equipment at home: cane Support at home: local daughter lives 5 miles away Current Functional Ability: Assistive Person, Assistive Equipment DME used at home: cane - quad DME Needed at Discharge: Patient is insured through: Primary Insurance: MEDICARE Payor: MEDICARE / Plan: MEDICARE PART A & B / Product Type: *No Product type* / Secondary Insurance: AARP SUPPLEMENT Last Physical Therapy Recommendation: home with outpatient therapy services with None Last Occupational Therapy Recommendation: with Plan for discharge is: Home w/o Services Outpatient Agency/Support Group Needs: None Agency Referrals: Current referrals placed to: none Transportation: family or friend will provide Barriers to discharge: Denies needs/concerns at this time Psych: Adjustment to diagnosis/illness, Coping/stress Items to Consider for Discharge: Wound of left leg - ? Possible outpatient wound care CM Interventions: CM given updates by in the am during IDRS on current medical status and any dispo /concerns updates on the patient. CM is notified that besides the 24 hour events the patient is to have a cath today. Possible d/c onThursday in the am. CM and team discuss dispo plan. CM states that per therapy notes that it is recommended for outpatient rehab. Team to discuss with patient outpatient rehab. CM also states that per therapy recommendations that the patients insurance would not cover home VNA services. CM will continue to monitor progress, follow for continuity of care and assist with discharge planning while patient is inpatient status on current unit. Anticipated Date of Discharge: 06/09/2022 Torsten Jain RN Case Bacteriology Teacher of Care Management Pager: [phone] * Plan of Care - Deanna Westfall RN - 06/08/2022 6:20 AM EDT OUTCOME EVALUATION NOTE: OUTCOME SUMMARY: Patient had an uneventful shift. AOx4, no reports of CP or SOB. Denies pain. Remains on RA. Ambulated in the hallway with no symptoms, SR to SB on TELE. Patient continues to refuse bed alarm. PLAN MOVING FORWARD: Heart Cath planned for tomorrow. Continue to actively monitor. D/C planning as appropriate INDIVIDUALIZED FALL PREVENTION INTERVENTIONS: Patient-specific fall risk factors per assessment: [current deficits]: TELE wires, unfamiliar environment Assistance [level of assistance required for transfers and ambulation]: ind Supervision [direct monitoring required during toileting and ADLs]: eyes only Surveillance [continuous indirect monitoring]: TELE, purposeful rounding, call gómez within reach. Patient-specific fall prevention interventions for sensory deficits provided, if applicable: room near RN station, door open, non-skid socks on when OOB, lighting adjusted for specific tasks, bed in lowest position CARE PLAN GOAL OUTCOME EVALUATION: Ongoing Problem: Adult Inpatient Plan of Care Goal: Plan of Care Review 06/08/2022116 by Deanna Westfall, RN Outcome: Ongoing (Interventions Implemented as Appropriate) 06/08/2022116 by Deanna Westfall RN Outcome: Ongoing (Interventions Implemented as Appropriate) Goal: Patient-Specific Goal (Individualized) 06/08/2022116 by Deanna Westfall RN Outcome: Ongoing (Interventions Implemented as Appropriate) 06/08/2022116 by Deanna Westfall RN Outcome: Ongoing (Interventions Implemented as Appropriate) Goal: Absence of Hospital-Acquired Illness or Injury 06/08/2022116 by Deanna Westfall RN Outcome: Ongoing (Interventions Implemented as Appropriate) 06/08/2022116 by Deanna Westfall RN Outcome: Ongoing (Interventions Implemented as Appropriate) Goal: Optimal Comfort and Wellbeing 06/08/2022116 by Deanna Westfall RN Outcome: Ongoing (Interventions Implemented as Appropriate) 06/08/2022116 by Deanna Westfall RN Outcome: Ongoing (Interventions Implemented as Appropriate) Goal: Readiness for Transition of Care 06/08/2022116 by Deanna Westfall RN Outcome: Ongoing (Interventions Implemented as Appropriate) 06/08/2022116 by Deanna Westfall RN Outcome: Ongoing (Interventions Implemented as Appropriate) Problem: Fall Injury Risk Goal: Absence of Fall and Fall-Related Injury 06/08/2022116 by Deanna Westfall RN Outcome: Ongoing (Interventions Implemented as Appropriate) 06/08/2022116 by Deanna Westfall RN Outcome: Ongoing (Interventions Implemented as Appropriate) Problem: Arrhythmia/Dysrhythmia (Cardiac Catheterization) Goal: Stable Heart Rate and Rhythm 06/08/2022116 by Deanna Westfall RN Outcome: Ongoing (Interventions Implemented as Appropriate) 06/08/2022116 by Deanna Westfall RN Outcome: Ongoing (Interventions Implemented as Appropriate) Problem: Bleeding (Cardiac Catheterization) Goal: Absence of Bleeding 06/08/2022116 by Deanna Westfall RN Outcome: Ongoing (Interventions Implemented as Appropriate) 06/08/2022116 by Deanna Westfall RN Outcome: Ongoing (Interventions Implemented as Appropriate) Problem: Contrast-Induced Injury Risk (Cardiac Catheterization) Goal: Absence of Contrast-Induced Injury 06/08/2022116 by Deanna Westfall RN Outcome: Ongoing (Interventions Implemented as Appropriate) 06/08/2022116 by Deanna Westfall RN Outcome: Ongoing (Interventions Implemented as Appropriate) Problem: Embolism (Cardiac Catheterization) Goal: Absence of Embolism Signs and Symptoms 06/08/2022116 by Deanna Westfall RN Outcome: Ongoing (Interventions Implemented as Appropriate) 06/08/2022116 by Deanna Westfall RN Outcome: Ongoing (Interventions Implemented as Appropriate) Problem: Ongoing Anesthesia/Sedation Effects (Cardiac Catheterization) Goal: Anesthesia/Sedation Recovery 06/08/2022116 by Deanna Westfall RN Outcome: Ongoing (Interventions Implemented as Appropriate) 06/08/2022116 by Deanna Westfall RN Outcome: Ongoing (Interventions Implemented as Appropriate) Problem: Pain (Cardiac Catheterization) Goal: Acceptable Pain Control 06/08/2022116 by Deanna Westfall RN Outcome: Ongoing (Interventions Implemented as Appropriate) 06/08/2022116 by Deanna Westfall RN Outcome: Ongoing (Interventions Implemented as Appropriate) Problem: Vascular Access Protection (Cardiac Catheterization) Goal: Absence of Vascular Access Complication 06/08/2022116 by Deanna Westfall RN Outcome: Ongoing (Interventions Implemented as Appropriate) 06/08/2022116 by Deanna Westfall RN Outcome: Ongoing (Interventions Implemented as Appropriate) * Plan of Care - Demetri Rivera PA - 06/07/2022 3:26 PM EDT Images from the original note were not included. Cardiac cath Pre Procedure Note The indications, expected benefits and potential risks of heart catheterization were reviewed in detail with the patient. The potential for , heart attack, stroke, kidney failure, hemorrhage, allergic reaction, vascular complications and infection were reviewed in detail. The possibility of stenting and other percutaneous intervention with associated risk was reviewed. The possible need for emergent coronary artery bypass surgery was reviewed. After a discussion about the above, and havinganswered all questions posed, the patient was provided with a consent which was reviewed and signed. ASA: 3: Patient with severe systemic disease Mallampati: III: only the base of the uvula can be seen Sedation Plan: moderate (conscious sedation) Assessment and Plan: Proceed with cardiac cath today, see progress note from today for further details. WILBERT Stovall 06/07/2022 Pager [phone] * Consult Note - Kimber Del Castillo RN - 06/07/2022 10:38 AM EDT Images from the original note were not included. Certified Wound Care Nurse Note Situation: Asked to see Lemuel Amador by nursing for right above lateral malleousus cut, was not healling for few months and pt wants to address it, yellow bed , fixed edges, covered with mepilex border, lost in shower, redressed with exuderm to see the healling progression. Background: eD-H notes reviewed for history, admitting diagnosis and active problem list. Pt seen in 445; RN atbedside reports use of exuderm yesterday following mepilex border falling off. Pt reports she has tried compression stockings, unclear if provider told her or if personal preference. No ABIs in chart. Per MD note: 86 y.o. female has a PMH of ASCVD s/p CABG x 4 in 09/2014 ( LIMAto LAD, SVG to OM, SVG to diag, ANTONIO to RCA), HTN, prediabetes, asthma, cervical myelopathy, radiculopathy and right sided weakness??who presented to [facility] after multiple falls over the past months athome. Pt denies ever losing consciousness; However, reports loss of coordination between head and legs. CT head from OSH negative for acute intracranial bleed but showed edemahematoma with R frontal scalp laceration. Troponin-HS flat, EKG with T wave changes. Given the hypertensive presentation, this is likely an NSTEMI type II. Will optimize anti-hypertensive agents, and use PRN hydralazine. TTE yesterday showed EF 69% with no significant changes from prior TTE in 2019. Will consider nuclearstress test tomorrow and Zio patch for arrhyhtmia monitoring given recent falls from unknown etiologies. Wound Assessment and Care Provided: Exuderm removed with small amt drainage; care and findings noted below. Pt with +DP and PT+ pulses at bilateral feet; feet warm, no edema. Periwound erythema mild.Skin prep to periwound, Therahoney gel applied. Mepilex border cover dressing. Education provided to patient for care. Thony Score: 20 Last Pressure Ulcer Prevention assessment: Shift Pressure Injury Prevention Occiput: No Injury Thoracic Spine: No Injury Sacral: No Injury Ischial - left: No Injury Ischial - right: No Injury Heel - left: No Injury Heel - right: No Injury Elbow - left: No Injury Elbow - right: No Injury Device Sites: IV sites, ECG Leads Other Sites: (rightankle has wound) Existing Wounds: Wound 06/06/22 0800 ankle neuropathic wound/ulcer (Active) Wound WDL ex 06/07/22 1036 Dressing Appearance moist drainage 06/07/22 1036 Base yellow;moist 06/07/22 1036 Base Description (%) 100% 06/07/22 1036 Wound Length (cm) 1.5 cm 06/07/22 1036 Wound Width (cm) 0.9 cm 06/07/22 1036 Wound Surface Area (cm^2) 1.35 cm^2 06/07/22 1036 Drainage Characteristics/Odor yellow 06/07/22 1036 Drainage Amount small 06/07/22 1036 Wound Cleaning cleansed with;wound cleanser 06/07/22 1036 Dressing hydrocolloid;dressing removed;honey;foam;dressing applied 06/07/22 1036 Wound Image 06/07/22 1036 Nutritional Status Wt Readings from Last 1 Encounters: 06/07/22 72.8 kg (160 lb 7.9 oz) Body mass index is 30.33 kg/m??. Labs Lab Results Component Value Date ALBUMIN 4.4 08/27/2021 HA1C 5.6 06/05/2022 HA1C 6.0 (H) 08/27/2021 WBC 7.3 06/07/2022 WBC 7.2 06/06/2022 WBC 7.3 06/05/2022 HGB 13.0 06/07/2022 HGB 12.8 06/06/2022 HGB 12.9 06/05/2022 HCT 40.6 06/07/2022 HCT 39.3 06/06/2022 HCT 39.6 06/05/2022 Nutritional Intake Nutrition Diet/Nutrition Received: low saturated fat/low cholesterol Diet/Feeding Assistance: none Intake (%): 100% Current bed: [facility] Assessment: Chronic wound, traumatic injury per patient. Therahoney applied to promote autolytic debridement. Wound Care Recommendations: ABIs The patient will benefit from follow up in the [facility] or Wound Care closer to her home. A referral can be made by calling [phone] an [facility] wound referral([id number]) in the discharge navigator. RLE: Therahoney Gel and Mepilex Border - change dressing every, Tuesday, Tuesday, Tuesday and as needed for dressing with 50% or greater strike though drainage. 1. Cleanse wound with dermal wound cleanser. 2. Apply skin prep to periwound 2. Apply Therahoney to the wound bed. 3. Cover with a Mepilex Border. Wound Care will follow weekly Discussed plan with: /SANJUANA/PA: Nicole RN: Shamika Please contact Kimber Del Castillo RN on pager [phone] or the wound care team at [phone] or pager [phone] skin and wound care concerns or questions. Electronically Signed By: Kimber Del Castillo RN * Plan of Care - Deanna Westfall RN - 06/07/2022 6:19 AM EDT OUTCOME EVALUATION NOTE: OUTCOME SUMMARY: Patient AOx4, no reports of CP or SOB. Denies pain. Remains on RA. SR with occasional PAC on TELE. Blood pressure high at 0440 and treated with hydralazine. BP lowering when rechecked. Patient refused bed alarm and refused to call for assistance to get up and use the bathroom during the night. PLAN MOVING FORWARD: Nuclear Stress test today. Continue to actively monitor. D/C planning as appropriate INDIVIDUALIZED FALL PREVENTION INTERVENTIONS: Patient-specific fall risk factors per assessment: [current deficits]: TELE wires, unfamiliar environment Assistance [level of assistance required for transfers and ambulation]: sba Supervision [direct monitoring required during toileting and ADLs]: Eyes only Surveillance [continuous indirect monitoring]: TELE, purposeful rounding, call gómez within reach. Patient-specific fall prevention interventions for sensory deficits provided, if applicable: room near RN station, door open, non-skid socks on when OOB, lighting adjusted for specific tasks, bed in lowest position CARE PLAN GOAL OUTCOME EVALUATION: Ongoing Problem: Adult Inpatient Plan of Care Goal: Plan of Care Review Outcome: Ongoing (Interventions Implemented as Appropriate) Goal: Patient-Specific Goal (Individualized) Outcome: Ongoing (Interventions Implemented as Appropriate) Goal: Absence of Hospital-Acquired Illness or Injury Outcome: Ongoing (Interventions Implemented as Appropriate) Goal: Optimal Comfort and Wellbeing Outcome: Ongoing (Interventions Implemented as Appropriate) Goal: Readiness for Transition of Care Outcome: Ongoing (Interventions Implemented as Appropriate) Problem: Fall Injury Risk Goal: Absence of Fall and Fall-Related Injury Outcome: Ongoing (Interventions Implemented as Appropriate) * Plan of Care - Shamika García RN - 06/06/2022 6:53 PM EDT OUTCOME EVALUATION NOTE: OUTCOME SUMMARY: Pt refused to have a chair alarm, she moves to the br with a cane, she took a shower, that helped her to feel better. She is putting CBD oil on her face even was asked not to by FIELD INTERVIEWER. Pt is npo after mn for stress test. She is refusing to take her aspirin and very difficult to convince to take the rest of her medications, each pill is discussed in long manor. PLAN MOVING FORWARD: Stress test on tuesday INDIVIDUALIZED FALL PREVENTION INTERVENTIONS: Patient-specific fall risk factors per assessment: [current deficits]: recent fall at home with colorful face. Assistance [level of assistance required for transfers and ambulation]: sba if she would let you Supervision [direct monitoring required during toileting and ADLs]: escort to the br if she would call Surveillance [continuous indirect monitoring]: telemetry Patient-specific fall prevention interventions for sensory deficits provided, if applicable: CPG GOAL OUTCOME EVALUATION: ongoing * Initial Assessments - Gorge Castrejon RN - 06/06/2022 3:42 PM EDT Office of Care Management Initial Assessment Gorge Castrejon RN reviewed record and discussed patient with Care Team. Source of Information: Team, bedside nurse, medical record, and Patient Introduced self/reviewed role; services accepted. Reason for Hospitalization: Covid Vaccination Status: 1st & 2nd dose (Moderna) Last COVID test: Past medical History: Past Medical History: Diagnosis Date ??? Asthma ??? Coronary artery disease ??? Hypertension ??? Lumbar radiculopathy ??? Median nerve neuropathy ??? Right foot drop ??? Statin intolerance ??? Ulnar nerve neuropathy Hospitalizations Within the Past 30 Days: no previous admission in last 30 days Current Decision-Making Capacity: Self If AD's have not been completed the following surrogate would be surrogate decision maker per [place] surrogate decision making law. (Only good for 180 days) Any patient receiving care in [place] must abide by [place] law. The hierarchy for surrogate decision making is: (a) Patient???s spouse, or civil union partner or common law spouse unless there is a divorce proceeding, separation agreement, or restraining order limiting that person???s relationship with the patient. (b) Any adult son or daughter of the patient. (c) Either parent of the patient. (d) Any adult brother or sister of the patient. (e) Any adult grandchild of the patient. (f) Any grandparent of the patient. (g) Any adult aunt, uncle, niece, or nephew of the patient. (h) A close friend of the patient. (i) The agent with financial power of criminal attorney or a conservator appointed in accordance with RSA 464-A. (j) The guardian of the patient???s estate. Advance Care Planning: Attempt Cardiopulmonary Resuscitation - Inpatient Received -Advanced Directive: Yes, on file Who is your DPOA-HC?: Child (Nallely Amador) Current Coping/Education/Information Needs: denies Current Functional Ability: Assistive Person Functional Status Prior to Admission: Independent Prior ADLs & IADLs: Independent with all ADLs & IADLs Home Environment: Others in the home: alone. Current Living Arrangements: home/apartment/condo. Accessibility Concerns:Lives in a Bed and Breakfast , which is her own home. Her younger daughter lives 5 miles away. Her oldest daughter just passed from cancer.. Resource / Environmental Concerns: Resource/Environmental Concerns: none Current DME: vicente nelson Home Address confirmed as: [address] [place] [address] Social & Family Supports: All names listed below confirmed with patient as current and correct Extended Emergency Contact Information Primary Emergency Contact: Nlalely Amador [facility] Relation: Child Current Care Provided by: self Provides Primary Care For: no one Caregiver if needed: child(celso), adult Quality of Family relationships: involved, helpful Community Resources being provided currently: none Behavioral Health History: none Substance Use/Abuse confirmed: Social History Tobacco Use Smoking Status Never Smoker Smokeless Tobacco Never Used 0 No problems reported 1-2 Low level 3-5 Moderate level 6-8 Substantial level 9- 10 Severe level 0 to 7 points: Low risk 8 to 15 points: Medium risk 16 to 19 points: High risk 20 to 40 points: Addiction likely Other Pertinent/Service Specific Information: none Health/Prescription Coverage: Primary Insurance: MEDICARE Payor: MEDICARE / Plan: MEDICARE PART A & B / Product Type: *No Product type* / Secondary Insurance: AARP SUPPLEMENT Secondary Insurance? (Only Medicare A&B): Yes ; Prescription Coverage: Yes Preferred Pharmacy: [facility] [address] [facility] [address] [facility] [id number] [id number] [place], [place] [address] [facility] [address] [facility] [phone] [facility] [place], [place] [address] [facility] [address] [facility] [place], [place] - [address] [facility] [address] [facility] [address] [facility] [address] - [facility], [place] - [address] [facility] [address] [place] [address] [place] Status: Patient is a : Primary Care Provider: Jacob Foley DO [phone] Patient/Caregiver Goals of Treatment: To go to her oldest daughter Potential Needs for Transition of Care: none Agency Referrals: Not Applicable Transportation: no concerns Transportation Anticipated: family or friend will provide Concerns to be Addressed: denies needs/concerns at this time Assessment: Patient is admitted to APP1 service for syncope Plan: nuclear stress test tomorrow and Zio patch for arrhyhtmia monitoring given recent falls from unknown etiologies. A member of the Care Management team will continue to monitor progress, follow for continuity of care and assist with transition of care planning. Gorge Castrejon RN BSN CCM * Plan of Care - Rito Brooks MD - 06/04/2022 8:14 PM EDT Images from the original note were not included. Cardiac cath Pre Procedure Note The indications, expected benefits and potential risks of heart catheterization were reviewed in detail with the patient. The potential for , heart attack, stroke, kidney failure, hemorrhage, allergic reaction, vascular complications and infection were reviewed in detail. The possibility of stenting and other percutaneous intervention with associated risk was reviewed. The possible need for emergent coronary artery bypass surgery was reviewed. After a discussion about the above, and havinganswered all questions posed, the patient was provided with a consent which was reviewed and signed. ASA: 3: Patient with severe systemic disease Mallampati: II: tonsillar pillars are blocked by the tongue Sedation Plan: moderate (conscious sedation) Assessment and Plan: Proceed with cardiac cath today, see progress note from today for further details. Rito Brooks MD 06/04/2022 Pager [phone] documented in this encounter Plan of Treatment Not on file documented as of this encounter Goals Goal Patient Goal Type Associated Problems Recent Progress Patient-Stated? Author LDL CALC < 70 Result Component No Michael Mckinnon [facility] documented as of this encounter Procedures Procedure Name Priority Date/Time Associated Diagnosis Comments HC VENIPUNCTURE Routine 06/09/2022 3:42 AM EDT HEMOGRAM Routine 06/09/2022 3:42 AM EDT DIFFERENTIAL, AUTOMATED Routine 06/09/20 3:42 AM EDT HC CBC,PLT & AUTO DIFF Routine 3:42 AM EDT CARDIAC CATHETERIZATION Routine 06/08/20 4:44 PM EDT HC VENIPUNCTURE Routine 06/08/2022 3:46 AM EDT HEMOGRAM Routine 06/08/2022 3:46 AM EDT DIFFERENTIAL, AUTOMATED Routine 06/08/20 3:46 AM EDT HC CBC,PLT & AUTO DIFF Routine 3:46 AM EDT NUCLEAR PHARMACOLOGIC STRESS CARDIOLOGY Routine 06/07/2022 9:20 AM EDT NM PHARMACOLOGIC STRESS CT COMPONENT Routine 06/07/2022 9:00 AM EDT NM PHARMACOLOGIC STRESS AND REST MYOCARDIAL PERFUSION Routine 06/07/2022 8:59 AM EDT HC VENIPUNCTURE Routine 06/07/2022 4:23 AM EDT HEMOGRAM Routine 06/07/2022 4:23 AM EDT DIFFERENTIAL, AUTOMATED Routine 06/07/20 4:23 AM EDT HC CBC,PLT & AUTO DIFF Routine 4:23 AM EDT HC VENIPUNCTURE Routine 06/06/2022 4:19 AM EDT HEMOGRAM Routine 06/06/2022 4:19 AM EDT DIFFERENTIAL, AUTOMATED Routine 06/06/20 4:19 AM EDT HC CBC,PLT & AUTO DIFF Routine 4:19 AM EDT ECHO COMPLETE Routine 06/05/2022 12:40 PM EDT Non-ST elevation myocardial infarction (NSTEMI) EKG 12-LEAD STAT 06/05/2022 5:27 AM EDT Non-ST elevation myocardial infarction (NSTEMI) HC TROPONIN T STAT 06/05/2022 4:03 AM EDT HC UNFRACTIONATED HEPARIN (HEP UFH) Routine 06/05/2022 12:43 AM EDT HC VENIPUNCTURE Routine 06/05/2022 12:43 AM EDT HEMOGRAM Routine 06/05/2022 12:43 AM EDT DIFFERENTIAL, AUTOMATED Routine 06/05/20 12:43 AM EDT HC CBC,PLT & AUTO DIFF Routine 12:43 AM EDT HC TRIGLYCERIDES Routine 06/05/2022 12:4 3 AM EDT HC LDL CHOLESTEROL, DIRECT Routine 06/05/2022 12:43 AM EDT HC CHOLESTEROL Routine 06/05/2022 12:43 AM EDT HC HEMOGLOBIN A1C Routine 06/05/2022 12: 43 AM EDT HC GLUCOSE FASTING Routine 06/05/2022 12 :43 AM EDT HC TROPONIN T STAT 06/04/2022 9:22 PM EDT HC UNFRACTIONATED HEPARIN (HEP UFH) Routine 06/04/2022 9:22 PM EDT HEMOGRAM Routine 06/04/2022 9:22 PM EDT DIFFERENTIAL, AUTOMATED Routine 06/04/20 9:22 PM EDT HC CBC,PLT & AUTO DIFF Routine 9:22 PM EDT EKG 12-LEAD STAT 06/04/2022 9:14 PM EDT Non-ST elevation myocardial infarction (NSTEMI) HC TROPONIN T STAT 06/04/2022 6:31 PM EDT HC UNFRACTIONATED HEPARIN (HEP UFH) STAT 06/04/2022 6:31 PM EDT BMP W/FASTING GLUCOSE STAT 06/04/2022 6:31 PM EDT HEMOGRAM STAT 06/04/2022 6:31 PM EDT DIFFERENTIAL, AUTOMATED STAT 06/04/20 6:31 PM EDT HC VENIPUNCTURE STAT 06/04/2022 6:31 PM EDT TSH STAT 06/04/2022 6:31 PM EDT EKG 12-LEAD STAT 06/04/2022 5:57 PM EDT Non-ST elevation myocardial infarction (NSTEMI) documented in this encounter Results * Ziopatch 48 Hrs-15 Days (06/09/2022 10:54 AM EDT) Anatomical Region Laterality Modality Other Narrative 06/24/2022 3:[address] [facility] ? Zio Patch? Ambulatory Cardiac Event Monitor Report Duration of recording - 3 days hours (after removal of artifact) Summary Data Predominant rhythm - sinus rhythm Minimum sinus rate - 44 bpm Maximum sinus rate - 108 bpm Average heart rate - 70 bpm Atrial fibrillation - ??none Ectopic beats Rare (<1%) atrial premature beats (APC? s), with rare couplets and triplets Rare (<1%) ventricular premature beats (VPC's), with no couplets or triplets Tachyarrhythmias None Bradyarrhythmias No severe or symptomatic bradycardia, significant pauses (>3 seconds) or high grade AV block. Triggered and Patient Diary Events There were 0 triggered and 2 patient diary events: (1) 06/11/22 ??2:00 PM - pounding, anxious - woke up - artifact makes rhythm uninterpretable (2) 06/12/22 ??3:30 AM - short of breath, pounding, pain/tingling (in neck or arm), anxious - in bed sinus rhythm at 70 bpm with occasional supraventricular ectopic beats Conclusion(s): ?? 1) Recording is limited by artifact, of the ~8 day recording period, only 3 days 8 hours was interpretable 2) Predominant rhythm is sinus rhythm with an average rate of 70 bpm (range 44-108 bpm) 3) Rare ectopy as detailed above. 4) No sustained or high grade arrhythmias. 5) Two patient reported events, one of which was uninterpretable due to artifact, the other demonstrating sinus rhythm at 70 bpm with SVEs. Sherita Rollins MD CARDIAC SERVICES ORD ERABLES * Differential, Automated (06/09/2022 3:42 AM EDT) Neutrophil % 71.1 % [facility] Neutrophil Absolute 5.73 1.70 - 6.10 x10(3)/[facility] Lymph % 17.6 % [facility] Lymphocytes Abs 1.4 0.9 - 3.2 x10(3)/[facility] Monocyte % 7.5 % [facility] Monocyte Abs 0.6 0.3 - 0.9 x10(3)/[facility] Eos % 3.0 % [facility] Eosinophils Abs 0.2 0.0 - 0.4 x10(3)/[facility] Basophil % 0.4 % [facility] Baso Absolute 0.0 0.0 - 0.1 x10(3)/[facility] Immature Gran % 0.40 % [facility] Comment: Immature granulocytes(IG's)percentage and absolute count will include metamyelocytes, myelocytes, and promyelocytes. Blood smears from CBCs yielding IG's will be scanned manually for concordance. If this scan disagrees with the automated IG or if promyelocytes are noted, a manual differential will be performed. Immature Gran Absolute 0.03 0.00 - 0.04 x10(3)/[facility] Blood 06/09/2022 3:42 AM EDT 06/09/2022 4:26 AM EDT Narrative Resulting Agency Comment Spec In Lab Rito Brooks MD HEMATOLOGY ORDERABLE S [facility] [place] [address] * (ABNORMAL) Hemogram (06/09/2022 3:42 AM EDT) White Blood Cell 8.0 4.0 - 9.5 x10(3)/mc L [facility] Red Blood Cell 4.55 4.00 - 5.21 x10(6)/mc L [facility] Hemoglobin 12.3 11.7 - 15.5 g/dL [facility] Hematocrit 37.6 35.7 - 45.8 % [facility] Mean Cell Volume 82.6 82.6 - 94.4 fL [facility] Mean Cell Hemoglobin 27.0(L) 27.1 - 32.0 pg [facility] Mean Cell Hemoglobin Concentration 32.7 31.7 - 35.0 g/dL [facility] Platelet 199 145 - 357 x10(3)/mc L [facility] RDW Standard Deviation 44.0 37.0 - 46.0 fL [facility] RDW coefficient of variation 14.5(H) 11.5 - 14.1 % [facility] Mean Platelet Volume 10.5 7.6 - 12.9 fL [facility] NRBC% auto 0.0 % [facility] NRBC Absolute 0.000 0.000 - 0.000 x10(3)/mc L [facility] Blood 06/09/2022 3:42 AM EDT 06/09/2022 4:26 AM EDT Narrative Resulting Agency Comment Spec In Lab Rito Brooks MD HEMATOLOGY ORDERABLE S [facility] [place] [address] * (ABNORMAL) BMP w/fasting Glucose (06/09/2022 3:42 AM EDT) Glucose Fasting 121(H) 65 - 99 mg/dL [facility] Comment: ?Fasting* Glucose Interpretive Criteria Normal ?65-99 mg/dL Impaired Fasting glucose ?100-125 mg/dL Consistent with Diabetes Mellitus ? >or= 126 mg/dL *Fasting is defined as no caloric intake for at least 8 hours In the absence of unequivocal hyperglycemia a plasma glucose value of >or= 126 mg/dL should be repeated on a subsequent day. Diagnosis and Classification of Diabetes Mellitus, Position Statement from the [place] [employer]. ??Diabetes Care, Volume 33, Supplement 1, Aug 2009 Blood Urea Nitrogen 24(H) 8 - 18 mg/dL [facility] Creatinine 0.71 0.70 - 1.20 mg/dL [facility] Sodium 141 135 - 145 mmol/L [facility] Potassium 3.7 3.5 - 5.0 mmol/L [facility] Comment: Please note: ??Patients with WBC >100,000 may have falsely elevated Potassium levels. ??For accurate Potassium quantification in these patients send serum separator tube (gold top) for subsequent determinations. ??Contact the Clinical Chemistry Laboratory if there are any questions. Chloride 107 98 - 107 mmol/L [facility] Carbon Dioxide 22 22 - 31 mmol/L [facility] Anion Gap 12 5 - 15 mmol/L [facility] Calcium 8.7 8.5 - 10.5 mg/dL [facility] Est Glomerular Filtration Rate 84 >=60 mL/min/1. 73 m?? [facility] Comment: This patient's estimated GFR was calculated using the 2020 CKD-EPI equation. The estimated GFR can vary from the measured GFR by up to 30% in the absence of rapidly changing kidney function. Assessment of the estimated GFR is not appropriate when creatinine concentrations are rapidly changing. For clinical situations in which a more precise estimate of GFR is necessary, consider alternative methods of GFR estimation such as a 24-hour urine creatinine clearance. Assignment of CKD stage 1-5 for patients with an eGFR near the transition point between stages may be based on clinical assessment of muscle mass and symptoms in addition to eGFR. Blood 06/09/2022 3:42 AM EDT 06/09/2022 4:26 AM EDT Narrative Resulting Agency Comment Spec In Lab Rito Brooks MD CHEMISTRY ORDERABLES [facility] [place] [address] * CARDIAC CATHETERIZATION (06/08/2022 4:44 PM EDT) Anatomical Region Laterality Modality Other Narrative 06/08/2022 4:52 PM EDT ?[facility] ? Cardiac Catheterization/Intervention Report ? Patient Name: Warnaar, Lemuel ??L. ? Procedure Date: 06/08/2022 ? A #: [id number] ? Primary Physician: Sara, Doug T ? Case #: [id number] ? File Name: [id number] ? Catheterization Order Number: [id number] ? [facility] ? Final Report [place], [place] ? Patient Name: ? Lemuel ??L. Warnaar ? ID#: ?[id number] ? : ?1935 ? Procedure Date: ? June 08, 2022 ? Case #: ? [id number] ? Room: ? 1 ? Case Physician: ? Doug Ruiz M.D. ?Start: ?15:58 ? Admission: ??06/04/2022 ? Referring Physician: ??Camille Fuentes ? Procedures: ?* Coronary Angiography ?* Bypass Graft Study ?* Selective Bilateral Renal Angiography ? History ?Lemuel ??James Amador is an 86 year old woman. She has hypertension and a ?family history of coronary artery disease. The patient's smoking status ?is Never. She has hypercholesterolemia managed with lipid therapy. The ?patient has a prior history of coronary artery disease. She is status ?post a recent non-ST elevation myocardial infarction as well as a remote ?myocardial infarction. The patient had remote coronary artery bypass ?surgery. She has a history of CHF. The CHF is NYHA Functional Class II, ?is newly diagnosed and is classified as Diastolic. Prior to the ?initiation of this procedure, the patient was designated as ASA Class ?III. The [facility] clinical frailty scale is 4: Vulnerable. ? Diagnostic Tests: ?Prior Coronary Angiography: ? LV ejection fraction within 6 months is 65%. ?Medications Prior to Procedure: ? Aspirin. ? Indications for Diagnostic Cath: ?The priority of the diagnostic procedure was Urgent. The indication for ?the medical laboratory technical officer visit is ACS greater than 24 hrs. Chest pain symptom ?assessment was: Typical Angina. ? Technique: ?A 7Fr sheath was inserted in the right femoral artery utilizing the ?Seldinger technique. A 6 SLFr sheath was inserted in the right radial ?artery utilizing the Seldinger technique. The left coronary artery was ?injected utilizing a 6Fr JL 4 catheter. A 6Fr JR 4 catheter was used to ?inject the right coronary artery. The right renal artery was injected ?utilizing a 6Fr JR 4 catheter. A 6Fr JR 4 catheter was used to inject the ?bypass graft. The mammary artery was injected utilizing a 6Fr GAMA ?catheter. A 6Fr JR 4 catheter was used to inject the left renal artery. ?3,000 units of heparin were administered. A total of 150cc of Iso-Miguel ?were opened, 70cc of Iso-Miguel were administered and 80cc of Iso-Miguel were ?wasted. Radiation: Fluoro time was 13.4 minutes, dose area product was ?36,200 mGYcm2 and air kerma was 336 mGY. See the case log for additional ?details. ?The patient received the following medications prior to and during the ?procedure: ? Unfractionated Heparin. ? Hemodynamics: ?Left Heart Pressures ? Resting: ? Syst Diast ? EDP ?a ?v ? m ?Ao 180 ?? 54 ?98 ? Coronary Angiography: ?Dominance: Right ?Left Main ? There was mild diffuse (<=25% stenosis) disease of the entire vessel ? segment of the left main artery. ?Left Anterior Descending ? There was mild diffuse (<=25% stenosis) disease of the entire vessel ? segment of the left anterior descending artery (LAD). ??The proximal ? segment of the LAD had a single discrete total occlusion. ??Distal ? flow was via a bypass graft. ?Left Circumflex ? There was mild diffuse (<=25% stenosis) disease of the entire vessel ? segment of the left circumflex artery (LCX). ??The proximal segment ? of the LCX had a single discrete total occlusion. ??Distal flow was ? via a bypass graft. ?Right Coronary Artery ? There was mild diffuse (<=25% stenosis) disease of the entire vessel ? segment of the right coronary artery (RCA). ??The ostial segment of ? the RCA had a single discrete 75% stenosis. ??Distal flow was via the ? grand traverse vessel and a bypass graft. ? Bypass Grafts: ?There was a total of four bypass grafts evaluated during this procedure. ?1. ?? Left internal mammary artery graft to the LAD ? There was a left internal mammary artery graft with a single ? anastomosis to the left anterior descending artery (LAD). ? There was no evidence of obstruction in this graft. Distal flow was ? normal. ?2. ?? Right internal mammary artery graft to the RCA ? There was a right internal mammary artery graft with a single ? anastomosis to the right coronary artery (RCA). ? There was no evidence of obstruction in this graft. Distal flow was ? normal. ?3. ?? Saphenous vein graft to the Diagonal 1 ? There was a saphenous vein graft with a single anastomosis to the ? first diagonal branch (Diagonal 1) of the LAD. ? There was no evidence of obstruction in this graft. Distal flow was ? normal. ?4. ?? Saphenous vein graft to the OM1 ? There was a saphenous vein graft with a single anastomosis to the ? first obtuse marginal branch (OM1) of the LCX. ? There was no evidence of obstruction in this graft. Distal flow was ? normal. ? Vascular Access: ?Vascular Access Management: ? Mechanical Compression of the right radial artery access site was ? performed. ? A Perclose was deployed at the right femoral artery access site. ? This device was successful. ? Conclusions: ?* Three vessel coronary artery disease (LAD, LCX and RCA) ?* Patent left internal mammary artery graft to the LAD ?* Patent right internal mammary artery graft to the RCA ?* Patent saphenous vein graft to the Diagonal 1 ?* Patent saphenous vein graft to the OM1 ?* No obstrucitve renal artery stenosis. ? Complications/Events: ?The patient had no complications during these procedures. ? Comments: ?The right followed by left renal artery were selectively engaged using a ?6FR JR-4 catheter from the femoral approach. ??This was related to severe ?hypertension with known 3VD. ??There are multiple left renal arteries with ?no high grade obstructive disease. ??There is a single right renal artery ?with no obstructive disease. ?The attending physician was present for the entire procedure. ?Dr. Doug Ruiz M.D. was present during the moderate sedation ?intraservice time as documented by the sedation nurse. ??Case time = 00:36. ?Dr. Doug Ruiz M.D. performed the coronary angiography, bypass graft ?study and bilateral renal angiography- selective. ? Doug Ruiz M.D. ? Electronically Signed by: Doug Ruiz M.D. ? Report Finalized: 06/08/2022 ??16:48 ? Doug Ruiz MD CARDIAC CATH ORDERAB LES * Differential, Automated (06/08/2022 3:46 AM EDT) Neutrophil % 70.8 % [facility] Neutrophil Absolute 5.27 1.70 - 6.10 x10(3)/[facility] Lymph % 19.8 % [facility] Lymphocytes Abs 1.5 0.9 - 3.2 x10(3)/[facility] Monocyte % 5.5 % [facility] Monocyte Abs 0.4 0.3 - 0.9 x10(3)/[facility] Eos % 3.1 % [facility] Eosinophils Abs 0.2 0.0 - 0.4 x10(3)/[facility] Basophil % 0.4 % [facility] Baso Absolute 0.0 0.0 - 0.1 x10(3)/[facility] Immature Gran % 0.40 % [facility] Comment: Immature granulocytes(IG's)percentage and absolute count will include metamyelocytes, myelocytes, and promyelocytes. Blood smears from CBCs yielding IG's will be scanned manually for concordance. If this scan disagrees with the automated IG or if promyelocytes are noted, a manual differential will be performed. Immature Gran Absolute 0.03 0.00 - 0.04 x10(3)/[facility] Blood 06/08/2022 3:46 AM EDT 06/08/2022 3:53 AM EDT Narrative Resulting Agency Comment Spec In Lab Rito Brooks MD HEMATOLOGY ORDERABLE S [facility] [place] [address] * (ABNORMAL) Hemogram (06/08/2022 3:46 AM EDT) White Blood Cell 7.4 4.0 - 9.5 x10(3)/mc L [facility] Red Blood Cell 4.72 4.00 - 5.21 x10(6)/mc L [facility] Hemoglobin 12.7 11.7 - 15.5 g/dL [facility] Hematocrit 39.1 35.7 - 45.8 % [facility] Mean Cell Volume 82.8 82.6 - 94.4 fL [facility] Mean Cell Hemoglobin 26.9(L) 27.1 - 32.0 pg [facility] Mean Cell Hemoglobin Concentration 32.5 31.7 - 35.0 g/dL [facility] Platelet 195 145 - 357 x10(3)/mc L [facility] RDW Standard Deviation 43.8 37.0 - 46.0 fL [facility] RDW coefficient of variation 14.5(H) 11.5 - 14.1 % [facility] Mean Platelet Volume 10.7 7.6 - 12.9 fL [facility] NRBC% auto 0.0 % [facility] NRBC Absolute 0.000 0.000 - 0.000 x10(3)/mc L [facility] Blood 06/08/2022 3:46 AM EDT 06/08/2022 3:53 AM EDT Narrative Resulting Agency Comment Spec In Lab Rito Brooks MD HEMATOLOGY ORDERABLE S Performing Organization Address City/State/[facility] Co de Phone Number [facility] [place] [address] * (ABNORMAL) BMP w/fasting Glucose (06/08/2022 3:46 AM EDT) Glucose Fasting 106(H) 65 - 99 mg/dL [facility] Comment: ?Fasting* Glucose Interpretive Criteria Normal ?65-99 mg/dL Impaired Fasting glucose ?100-125 mg/dL Consistent with Diabetes Mellitus ? >or= 126 mg/dL *Fasting is defined as no caloric intake for at least 8 hours In the absence of unequivocal hyperglycemia a plasma glucose value of >or= 126 mg/dL should be repeated on a subsequent day. Diagnosis and Classification of Diabetes Mellitus, Position Statement from the [place] [employer]. ??Diabetes Care, Volume 33, Supplement 1, Aug 2009 Blood Urea Nitrogen 20(H) 8 - 18 mg/dL [facility] Creatinine 0.74 0.70 - 1.20 mg/dL [facility] Sodium 139 135 - 145 mmol/L [facility] Potassium 3.7 3.5 - 5.0 mmol/L [facility] Comment: Please note: ??Patients with WBC >100,000 may have falsely elevated Potassium levels. ??For accurate Potassium quantification in these patients send serum separator tube (gold top) for subsequent determinations. ??Contact the Clinical Chemistry Laboratory if there are any questions. Chloride 108(H) 98 - 107 mmol/L [facility] Carbon Dioxide 22 22 - 31 mmol/L [facility] Anion Gap 9 5 - 15 mmol/L [facility] Calcium 8.9 8.5 - 10.5 mg/dL [facility] Est Glomerular Filtration Rate 80 >=60 mL/min/1. 73 m?? [facility] Comment: This patient's estimated GFR was calculated using the 2020 CKD-EPI equation. The estimated GFR can vary from the measured GFR by up to 30% in the absence of rapidly changing kidney function. Assessment of the estimated GFR is not appropriate when creatinine concentrations are rapidly changing. For clinical situations in which a more precise estimate of GFR is necessary, consider alternative methods of GFR estimation such as a 24-hour urine creatinine clearance. Assignment of CKD stage 1-5 for patients with an eGFR near the transition point between stages may be based on clinical assessment of muscle mass and symptoms in addition to eGFR. Blood 06/08/2022 3:46 AM EDT 06/08/2022 3:53 AM EDT Narrative Resulting Agency Comment Spec In Lab Rito Brooks MD CHEMISTRY ORDERABLES [facility] [place] [address] * Nuclear Pharmacologic Stress Cardiology (06/07/2022 9:20 AM EDT) Anatomical Region Laterality Modality Other Cecy Munguia APRN CARDIAC SERVICES ORD ERABLES * NM Pharmacologic Stress CT Component (06/07/2022 9:00 AM EDT) Anatomical Region Laterality Modality Nuclear Medicine Narrative 06/07/2022 12:52 PM EDT EXAMINATION: NM PHARMACOLOGIC STRESS CT COMPONENT CLINICAL HISTORY: Study performed for attenuation correction of the myocardial perfusion scan. TECHNIQUE: A limited field of view, non-contrast, non-breath hold, low dose CT scan of the region surrounding the myocardium was performed for the purpose of attenuation correction of the myocardial perfusion scan. COMPARISON: Chest radiograph June 03, [address] FINDINGS: Postoperative changes consistent with a prior CABG. Coronary artery calcification. Aortic calcification. Hepatic steatosis. Thank you for letting us participate in the care of this patient. ??If you are a health care provider and have any questions regarding this report, please contact the number below. ??For patients who have questions please contact the health child care centre manager that requested your imaging first. ? Electronically signed by: Gregor Palacios MD, [facility] ([phone]), at 06/07/2022 12:52 PM Procedure Note Gregor Palacios MD - 06/07/2022 EXAMINATION: NM PHARMACOLOGIC STRESS CT COMPONENT CLINICAL HISTORY: Study performed for attenuation correction of themyocardial perfusion scan. TECHNIQUE: A limited field of view, non-contrast, non-breath hold, lowdose CT scan of the region surrounding the myocardium was performed for thepurpose of attenuation correction of the myocardial perfusion scan. COMPARISON: Chest radiograph June 03, [address] FINDINGS: Postoperative changes consistent with a prior CABG. Coronary artery calcification. Aortic calcification. Hepatic steatosis. Thank you for letting us participate in the care of this patient. If youare a health care provider and have any questions regarding this report,please contact the number below. For patients who have questions please contactthe health child care centre manager that requested your imaging first. Electronically signed by: Gregor Palacios MD, [facility]([phone]), at 06/07/2022 12:52 PM Cecy Munguia [facility] NM ORDERABLES * NM Pharmacologic Stress and Rest Myocardial Perfusion (06/07/2022 8:59 AM EDT) Anatomical Region Laterality Modality Nuclear Medicine Impressions 06/07/2022 11:55 AM EDT 1. ??Lateral wall ischemia 2. ??Normal left ventricular ejection fraction Thank you for letting us participate in the care of this patient. ??If you are a health care provider and have any questions regarding this report, please contact the number below. ??For patients who have questions please contact the health child care centre manager that requested your imaging first. ? Narrative 06/07/2022 11:55 AM EDT EXAMINATION: NM PHARMACOLOGIC STRESS AND REST MYOCARDIAL PERFUSION CLINICAL HISTORY: frequent falls, atypical chest pain, evaluate for ischemia TECHNIQUE: During rest, 8 mCi of technetium-99m sestamibi was administered intravenously. Approximately 20 minutes later, SPECT images of the heart were obtained with reconstruction in the short, vertical long and horizontal long axis. The patient then received regadenoson intravenously at a dose of 0.4 mg. 20 seconds later, 27.2 mCi of technetium-99m sestamibi was administered intravenously. Images of the heart were then again obtained with SPECT reconstruction. A low-dose CT scan was acquired for the purpose of attenuation correction COMPARISON: None FINDINGS: At rest, perfusion is within normal limits. At stress, there is a moderate intensity basilar to mid lateral wall perfusion defect suggestive of ischemia. Functional analysis: Myocardial function: There is normal wall thickening and wall motion. Left ventricular ejection fraction: 58 % (normal greater than than 50%). INCIDENTAL CT FINDINGS: see separate report Procedure Note Morgan Shaikh MD - 06/07/2022 EXAMINATION: NM PHARMACOLOGIC STRESS AND REST MYOCARDIAL PERFUSION CLINICAL HISTORY: frequent falls, atypical chest pain, evaluate forischemia TECHNIQUE: During rest, 8 mCi of technetium-99m sestamibi wasadministered intravenously. Approximately 20 minutes later, SPECT images of the heartwere obtained with reconstruction in the short, vertical long and horizontallong axis. The patient then received regadenoson intravenously at a dose of 0.4 mg.20 seconds later, 27.2 mCi of technetium-99m sestamibi was administered intravenously. Images of the heart were then again obtained with SPECT reconstruction. A low-dose CT scan was acquired for the purpose of attenuationcorrection COMPARISON: None FINDINGS: At rest, perfusion is within normal limits. At stress, there is amoderate intensity basilar to mid lateral wall perfusion defect suggestive ofischemia. Functional analysis: Myocardial function: There is normal wall thickening and wall motion. Left ventricular ejection fraction: 58 % (normal greater than than 50%). INCIDENTAL CT FINDINGS: see separate report IMPRESSION 1. Lateral wall ischemia 2. Normal left ventricular ejection fraction Thank you for letting us participate in the care of this patient. If youare a health care provider and have any questions regarding this report,please contact the number below. For patients who have questions please contactthe health child care centre manager that requested your imaging first. Cecy Munguia APRN IMG NM ORDERABLES * Differential, Automated (06/07/2022 4:23 AM EDT) Neutrophil % 67.3 % [facility] Neutrophil Absolute 4.93 1.70 - 6.10 x10(3)/[facility] Lymph % 22.1 % [facility] Lymphocytes Abs 1.6 0.9 - 3.2 x10(3)/[facility] Monocyte % 6.8 % [facility] Monocyte Abs 0.5 0.3 - 0.9 x10(3)/[facility] Eos % 3.3 % [facility] Eosinophils Abs 0.2 0.0 - 0.4 x10(3)/[facility] Basophil % 0.4 % [facility] Baso Absolute 0.0 0.0 - 0.1 x10(3)/[facility] Immature Gran % 0.10 % [facility] Comment: Immature granulocytes(IG's)percentage and absolute count will include metamyelocytes, myelocytes, and promyelocytes. Blood smears from CBCs yielding IG's will be scanned manually for concordance. If this scan disagrees with the automated IG or if promyelocytes are noted, a manual differential will be performed. Immature Gran Absolute 0.01 0.00 - 0.04 x10(3)/[facility] Blood 06/07/2022 4:23 AM EDT 06/07/2022 4:42 AM EDT Narrative Resulting Agency Comment Spec In Lab Rito Brooks MD HEMATOLOGY ORDERABLE S [facility] [place] [address] * (ABNORMAL) Hemogram (06/07/2022 4:23 AM EDT) White Blood Cell 7.3 4.0 - 9.5 x10(3)/mc L [facility] Red Blood Cell 4.89 4.00 - 5.21 x10(6)/mc L [facility] Hemoglobin 13.0 11.7 - 15.5 g/dL [facility] Hematocrit 40.6 35.7 - 45.8 % [facility] Mean Cell Volume 83.0 82.6 - 94.4 fL [facility] Mean Cell Hemoglobin 26.6(L) 27.1 - 32.0 pg [facility] Mean Cell Hemoglobin Concentration 32.0 31.7 - 35.0 g/dL [facility] Platelet 196 145 - 357 x10(3)/mc L [facility] RDW Standard Deviation 44.1 37.0 - 46.0 fL [facility] RDW coefficient of variation 14.6(H) 11.5 - 14.1 % [facility] Mean Platelet Volume 10.9 7.6 - 12.9 fL [facility] NRBC% auto 0.0 % [facility] NRBC Absolute 0.000 0.000 - 0.000 x10(3)/mc L [facility] Blood 06/07/2022 4:23 AM EDT 06/07/2022 4:42 AM EDT Narrative Resulting Agency Comment Spec In Lab Rito Brooks MD HEMATOLOGY ORDERABLE S Performing Organization Address City/State/[facility] Co de Phone Number [facility] [place] [address] * (ABNORMAL) BMP w/fasting Glucose (06/07/2022 4:23 AM EDT) Glucose Fasting 113(H) 65 - 99 mg/dL [facility] Comment: ?Fasting* Glucose Interpretive Criteria Normal ?65-99 mg/dL Impaired Fasting glucose ?100-125 mg/dL Consistent with Diabetes Mellitus ? >or= 126 mg/dL *Fasting is defined as no caloric intake for at least 8 hours In the absence of unequivocal hyperglycemia a plasma glucose value of >or= 126 mg/dL should be repeated on a subsequent day. Diagnosis and Classification of Diabetes Mellitus, Position Statement from the [place] [employer]. ??Diabetes Care, Volume 33, Supplement 1, Aug 2009 Blood Urea Nitrogen 21(H) 8 - 18 mg/dL [facility] Creatinine 0.76 0.70 - 1.20 mg/dL [facility] Sodium 139 135 - 145 mmol/L [facility] Potassium 3.8 3.5 - 5.0 mmol/L [facility] Comment: Please note: ??Patients with WBC >100,000 may have falsely elevated Potassium levels. ??For accurate Potassium quantification in these patients send serum separator tube (gold top) for subsequent determinations. ??Contact the Clinical Chemistry Laboratory if there are any questions. Chloride 108(H) 98 - 107 mmol/L [facility] Carbon Dioxide 22 22 - 31 mmol/L [facility] Anion Gap 9 5 - 15 mmol/L [facility] Calcium 8.8 8.5 - 10.5 mg/dL [facility] Est Glomerular Filtration Rate 77 >=60 mL/min/1. 73 m?? [facility] Comment: This patient's estimated GFR was calculated using the 2020 CKD-EPI equation. The estimated GFR can vary from the measured GFR by up to 30% in the absence of rapidly changing kidney function. Assessment of the estimated GFR is not appropriate when creatinine concentrations are rapidly changing. For clinical situations in which a more precise estimate of GFR is necessary, consider alternative methods of GFR estimation such as a 24-hour urine creatinine clearance. Assignment of CKD stage 1-5 for patients with an eGFR near the transition point between stages may be based on clinical assessment of muscle mass and symptoms in addition to eGFR. Blood 06/07/2022 4:23 AM EDT 06/07/2022 4:42 AM EDT Narrative Resulting Agency Comment Spec In Lab Rito Brooks MD CHEMISTRY ORDERABLES [facility] [place] [address] * Differential, Automated (06/06/2022 4:19 AM EDT) Neutrophil % 67.9 % [facility] Neutrophil Absolute 4.88 1.70 - 6.10 x10(3)/mcL [facility] Lymph % 21.8 % [facility] Lymphocytes Abs 1.6 0.9 - 3.2 x10(3)/[facility] Monocyte % 6.7 % [facility] Monocyte Abs 0.5 0.3 - 0.9 x10(3)/[facility] Eos % 2.9 % [facility] Eosinophils Abs 0.2 0.0 - 0.4 x10(3)/[facility] Basophil % 0.4 % [facility] Baso Absolute 0.0 0.0 - 0.1 x10(3)/[facility] Immature Gran % 0.30 % [facility] Comment: Immature granulocytes(IG's)percentage and absolute count will include metamyelocytes, myelocytes, and promyelocytes. Blood smears from CBCs yielding IG's will be scanned manually for concordance. If this scan disagrees with the automated IG or if promyelocytes are noted, a manual differential will be performed. Immature Gran Absolute 0.02 0.00 - 0.04 x10(3)/[facility] Blood 06/06/2022 4:19 AM EDT 06/06/2022 4:29 AM EDT Narrative Resulting Agency Comment Spec In Lab Rito Brooks MD HEMATOLOGY ORDERABLE S Performing Organization Address City/State/[facility] Co de Phone Number [facility] [place] [address] * (ABNORMAL) Hemogram (06/06/2022 4:19 AM EDT) White Blood Cell 7.2 4.0 - 9.5 x10(3)/ L [facility] Red Blood Cell 4.74 4.00 - 5.21 x10(6)/[facility] Hemoglobin 12.8 11.7 - 15.5 g/dL [facility] Hematocrit 39.3 35.7 - 45.8 % [facility] Mean Cell Volume 82.9 82.6 - 94.4 fL [facility] Mean Cell Hemoglobin 27.0(L) 27.1 - 32.0 pg [facility] Mean Cell Hemoglobin Concentration 32.6 31.7 - 35.0 g/dL [facility] Platelet 194 145 - 357 x10(3)/mc L [facility] RDW Standard Deviation 44.9 37.0 - 46.0 fL [facility] RDW coefficient of variation 14.7(H) 11.5 - 14.1 % [facility] Mean Platelet Volume 10.1 7.6 - 12.9 fL [facility] NRBC% auto 0.0 % [facility] NRBC Absolute 0.000 0.000 - 0.000 x10(3)/mc L [facility] Blood 06/06/2022 4:19 AM EDT 06/06/2022 4:29 AM EDT Narrative Resulting Agency Comment Spec In Lab Rito Brooks MD HEMATOLOGY ORDERABLE S Performing Organization Address City/State/[facility] Co de Phone Number [facility] [place] [address] * (ABNORMAL) BMP w/fasting Glucose (06/06/2022 4:19 AM EDT) Glucose Fasting 115(H) 65 - 99 mg/dL [facility] Comment: ?Fasting* Glucose Interpretive Criteria Normal ?65-99 mg/dL Impaired Fasting glucose ?100-125 mg/dL Consistent with Diabetes Mellitus ? >or= 126 mg/dL *Fasting is defined as no caloric intake for at least 8 hours In the absence of unequivocal hyperglycemia a plasma glucose value of >or= 126 mg/dL should be repeated on a subsequent day. Diagnosis and Classification of Diabetes Mellitus, Position Statement from the [place] [employer]. ??Diabetes Care, Volume 33, Supplement 1, Aug 2009 Blood Urea Nitrogen 16 8 - 18 mg/dL [facility] Creatinine 0.77 0.70 - 1.20 mg/dL [facility] Sodium 140 135 - 145 mmol/L [facility] Potassium 3.8 3.5 - 5.0 mmol/L [facility] Comment: Please note: ??Patients with WBC >100,000 may have falsely elevated Potassium levels. ??For accurate Potassium quantification in these patients send serum separator tube (gold top) for subsequent determinations. ??Contact the Clinical Chemistry Laboratory if there are any questions. Chloride 108(H) 98 - 107 mmol/L [facility] Carbon Dioxide 23 22 - 31 mmol/L [facility] Anion Gap 9 5 - 15 mmol/L [facility] Calcium 9.0 8.5 - 10.5 mg/dL [facility] Est Glomerular Filtration Rate 76 >=60 mL/min/1. 73 m?? [facility] Comment: This patient's estimated GFR was calculated using the 2020 CKD-EPI equation. The estimated GFR can vary from the measured GFR by up to 30% in the absence of rapidly changing kidney function. Assessment of the estimated GFR is not appropriate when creatinine concentrations are rapidly changing. For clinical situations in which a more precise estimate of GFR is necessary, consider alternative methods of GFR estimation such as a 24-hour urine creatinine clearance. Assignment of CKD stage 1-5 for patients with an eGFR near the transition point between stages may be based on clinical assessment of muscle mass and symptoms in addition to eGFR. Blood 06/06/2022 4:19 AM EDT 06/06/2022 4:29 AM EDT Narrative Resulting Agency Comment Spec In Lab Rito Brooks MD CHEMISTRY ORDERABLES [facility] [place] [address] * ECHO COMPLETE (06/05/2022 12:40 PM EDT) EF 69 HEARTLAB SYSTEM Anatomical Region Laterality Modality Cardiac Other 06/05/2022 11:1 9 AM EDT Narrative 06/05/2022 3:17 PM EDT ? Echocardiogram Report Name: LEMUEL AMADOR ? Study Date: 06/05/2022 11:19 AMBP: 160/48 mmHg ? Patient Location: [place] [id number] A HR: 58 : 1935 ? Height: 155 cm ? Account: [id number] Age: 86 yrs ? Weight: 73 kg Gender: Female ?BSA: 1.7 m2 Ordering Physician: RITO BROOKS Referring Physician: JEFFREY UREÑA Performed By: Mian Gonzalez RDCS Reason For Study: NSTEMI Exam Location: [facility]. Interpretation Summary Biventricular function is normal with LVEF of 69% by Sanchez's biplane and no wall motion abnormalities. LV filling pressure is elevated. PASP 36 mm Hg (assuming RA pressure 8 mm Hg). The left atrium is moderately dilated. The right atrium is normal. There is no hemodynamically significant valvular disease present. Compared to prior echo 12/19/2018, no significant changes have occured. Procedure Complete-[id number]. Satisfactory quality. There is normal sinus rhythm. Left Ventricle Left ventricle is of normal size. Wall thickness is mildly increased. There is no ventricular septal defect. Left ventricular systolic function is normal. The left ventricular ejection fraction is 69% by Sanchez's biplane. There are no segmental wall motion abnormalities. Right Ventricle The right ventricle is of normal size. Right ventricular systolic function is normal. Left Atrium The left atrium is moderately dilated. There is no evidence for a patent foramen ovale. Right Atrium The right atrium is normal. Aortic Valve The aortic valve is structurally normal. The aortic valve is mildly thickened. There is no aortic stenosis. There is mild aortic regurgitation. Mitral Valve The mitral valve is structurally and functionally normal. Mild calcification of the posterior mitral annulus. There is trace mitral regurgitation. Tricuspid Valve The tricuspid valve is structurally normal. There is mild tricuspid regurgitation. Pulmonic Valve The pulmonic valve appears to be structurally and functionally normal. There is trace pulmonic valve regurgitation. Great Arteries The aortic root is of normal size. No abnormalities are identified. The ascending aorta is mildly dilated. Venous Inferior vena cava is normal in size. Inferior vena cava collapse less than 50% with respiration. Pericardium/Pleural The pericardium appears normal. Hemodynamics The estimated right atrial pressure is 8mmHg. The peak right ventricular systolic pressure is 36 mmHg. Left ventricular filling pressure is increased. Ejection Fraction ?2D Measurements ? Volumes LV Biplane EF: 69.0 % ? IVSd: 1.3 cm ? LA Volume Index: ?LVIDd: 4.1 cm ?LVIDs: 2.8 cm ?50.5 ml/m2 ?LVPWd: 1.1 cm ?EDV Biplane: 51.1 ml ? EDV Biplane Index: 29.7 ?LV mass(C)d: 180.4 grams ? ESV Biplane: 15.9 ml ?LV mass(C)dI: 104.7 grams/m2 ?? ESV Biplane Index: 9.2 ?Ao root diam: 3.2 cm ? SV(LVOT): 89.2 ml ?Ao root diam index: 1.8 ?LV Stroke Volume: 89.2 ml ?asc Aorta Diam: 3.6 cm ?LVOT diam: 1.9 cm ?SI(LVOT): 51.8 ml/m2 ?TAPSE_phl: 2.0 cm Doppler TR max veena: 264.9 cm/sec RVSP(TR): 36.1 mmHg LV V1 VTI: 30.5 cm LVOT max Velocity: 120.8 cm/sec MV E max veena: 107.7 cm/sec MV A max veena: 117.6 cm/sec MV E/A: 0.92 MV dec time: 0.29 sec Lat Peak E' Veena: 3.9 cm/sec E/ e' (lat): 27.9 Med Peak E' Veena: 5.1 cm/sec E/e' (med): 21.2 E/e' Average: 24.6 I ?WMSI = 1.00 ? % Normal = 100 ?Segments ??Size X - Cannot ?2 - ?4 - ?1-2 ? small Interpret ?1 - Normal ?? Hypokinetic 3 - Akinetic Dyskinetic ?? 3-5 ? moderate 5 - ? 6-14 ?large Aneurysmal ?15-16 ?? diffuse Procedure Note Tony Valero MD - 06/05/2022 Echocardiogram Report Name: LEMUEL AMADOR Study Date: :19 AMBP: 160/48 mmHg Patient Location: [id number] A HR: 58 : 1935 Height: 155 cm Account: [id number] Age: 86 yrs Weight: 73 kg Gender: Female BSA: 1.7 m2 Ordering Physician: RITO BROOKS Referring Physician: JEFFREY UREÑA Performed By: Mian Gonzalez RDCS Reason For Study: NSTEMI Exam Location: [facility]. Interpretation Summary Biventricular function is normal with LVEF of 69% by Sanchez's biplane andno wall motion abnormalities. LV filling pressure is elevated. PASP 36 mm Hg(assuming RA pressure 8 mm Hg). The left atrium is moderately dilated. The right atrium is normal. There is no hemodynamically significant valvular disease present. Compared to prior echo 12/19/2018, no significant changes have occured. Procedure Complete-[id number]. Satisfactory quality. There is normal sinus rhythm. Left Ventricle Left ventricle is of normal size. Wall thickness is mildly increased.There is no ventricular septal defect. Left ventricular systolic function is normal.The left ventricular ejection fraction is 69% by Sanchez's biplane. There are nosegmental wall motion abnormalities. Right Ventricle The right ventricle is of normal size. Right ventricular systolic functionis normal. Left Atrium The left atrium is moderately dilated. There is no evidence for a patentforamen ovale. Right Atrium The right atrium is normal. Aortic Valve The aortic valve is structurally normal. The aortic valve is mildlythickened. There is no aortic stenosis. There is mild aortic regurgitation. Mitral Valve The mitral valve is structurally and functionally normal. Mildcalcification of the posterior mitral annulus. There is trace mitral regurgitation. Tricuspid Valve The tricuspid valve is structurally normal. There is mild tricuspidregurgitation. Pulmonic Valve The pulmonic valve appears to be structurally and functionally normal.There is trace pulmonic valve regurgitation. Great Arteries The aortic root is of normal size. No abnormalities are identified. Theascending aorta is mildly dilated. Venous Inferior vena cava is normal in size. Inferior vena cava collapse lessthan 50% with respiration. Pericardium/Pleural The pericardium appears normal. Hemodynamics The estimated right atrial pressure is 8mmHg. The peak right ventricularsystolic pressure is 36 mmHg. Left ventricular filling pressure is increased. Ejection Fraction 2D Measurements Volumes LV Biplane EF: 69.0 % IVSd: 1.3 cm LA VolumeIndex: LVIDd: 4.1 cm LVIDs: 2.8 cm 50.5 ml/m2 LVPWd: 1.1 cm EDV Biplane: 51.1ml EDV BiplaneIndex: 29.7 LV mass(C)d: 180.4 grams ESV Biplane: 15.9ml LV mass(C)dI: 104.7 grams/m2 ESV BiplaneIndex: 9.2 Ao root diam: 3.2 cm SV(LVOT): 89.2ml Ao root diam index: 1.8 LV Stroke Volume:89.2 ml asc Aorta Diam: 3.6 cm LVOT diam: 1.9 cm SI(LVOT): 51.8ml/m2 TAPSE_phl: 2.0 cm Doppler TR max veena: 264.9 cm/sec RVSP(TR): 36.1 mmHg LV V1 VTI: 30.5 cm LVOT max Velocity: 120.8 cm/sec MV E max veena: 107.7 cm/sec MV A max veena: 117.6 cm/sec MV E/A: 0.92 MV dec time: 0.29 sec Lat Peak E' Veena: 3.9 cm/sec E/ e' (lat): 27.9 Med Peak E' Veena: 5.1 cm/sec E/e' (med): 21.2 E/e' Average: 24.6 I WMSI = 1.00 % Normal = 100 SegmentsSize X - Cannot 2 - 4 - 1-2small Interpret 1 - Normal Hypokinetic 3 - Akinetic Dyskinetic 3-5moderate 5 - 6-14large Aneurysmal 15-16diffuse Rito Brooks MD ECHO ORDERABLES * EKG 12 Lead (06/05/2022 5:27 AM EDT) Ventricular rate 71 BPM MUSE SYSTEM Atrial Rate 71 BPM MUSE SYSTEM P-R Interval 190 ms MUSE SYSTEM QRS Duration 96 ms MUSE SYSTEM Q-T Interval 402 ms MUSE SYSTEM QTC Calculated (Bezet) 436 ms MUSE SYSTEM Calculated P [place] 72 degrees MUSE SYSTEM Calculated R [place] -56 degrees MUSE SYSTEM Calculated T [place] 112 degrees MUSE SYSTEM INTERPRETATION Sinus rhythm with Premature supraventricular complexes Left axis deviation Possible Anterior infarct (cited on or before 04-JUN-2022) T wave abnormality, consider lateral ischemia Abnormal ECG When compared with ECG of 04-JUN-2022 21:14, Premature ventricular complexes are no longer Present Premature supraventricular complexes are now Present Confirmed by Sherita Rollins MD ([id number]) on 06/05/2022 2:27:55 PM MUSE SYSTEM 06/05/2022 5:27 AM EDT 06/05/2022 2:27 PM EDT Rito Brooks MD ECG ORDERABLES MUSE SYSTEM * (ABNORMAL) Troponin (06/05/2022 4:03 AM EDT) Pathologist [facility] Troponin-T, High Sensitivity 28(H) <=14 ng/L [facility] Comment: This patient's troponin T concentration was determined using the Rula 5th Generation troponin T assay. The 99th percentile for Troponin T for this test is 14 ng/L for females, and 22 ng/L for males. According to the fourth universal definition of myocardial infarction, the term acute myocardial infarction should be used when there is acute myocardial injury with clinical evidence of acute myocardial ischemia and with detection of a rise and/or fall of cardiac troponin values with at least one value above the 99th percentile and at least one of the following: - Symptoms of myocardial ischemia; - New ischemic ECG changes; - Development of pathological Q waves; - Imaging evidence of new loss of viable myocardium or new regional wall motion abnormality in a pattern consistent with an ischemic etiology; - Identification of a coronary thrombus by angiography or autopsy (not for type 2 or 3 MIs) Serial measurement of troponin and the change in troponin concentration over time (delta) is crucial for the diagnosis of acute myocardial infarction. Guidance on the interpretation of the new 5th Generation Troponin T values and the delta troponin value can be found in the [facility] Laboratory Test Catalog Troponin - [facility] Test Catalog Reference: Fourth [place] Definition of Myocardial Infarction. Journal of the [place] College [employer] 2018;72:8558-4754 Blood 06/05/2022 4:03 AM EDT 06/05/2022 5:19 AM EDT Narrative Resulting Agency Comment Spec In Lab Rito Brooks MD CHEMISTRY ORDERABLES [facility] [place] [address] * Differential, Automated (06/05/2022 12:43 AM EDT) Neutrophil % 66.7 % [facility] Neutrophil Absolute 4.89 1.70 - 6.10 x10(3)/[facility] Lymph % 23.6 % [facility] Lymphocytes Abs 1.7 0.9 - 3.2 x10(3)/[facility] Monocyte % 5.6 % [facility] Monocyte Abs 0.4 0.3 - 0.9 x10(3)/[facility] Eos % 3.4 % [facility] Eosinophils Abs 0.2 0.0 - 0.4 x10(3)/[facility] Basophil % 0.4 % [facility] Baso Absolute 0.0 0.0 - 0.1 x10(3)/[facility] Immature Gran % 0.30 % [facility] Comment: Immature granulocytes(IG's)percentage and absolute count will include metamyelocytes, myelocytes, and promyelocytes. Blood smears from CBCs yielding IG's will be scanned manually for concordance. If this scan disagrees with the automated IG or if promyelocytes are noted, a manual differential will be performed. Immature Gran Absolute 0.02 0.00 - 0.04 x10(3)/mcL [facility] Blood 06/05/2022 12:4 3 AM EDT 06/05/2022 12:56 AM EDT Narrative Resulting Agency Comment Spec In Lab Rito Brooks MD HEMATOLOGY ORDERABLE S [facility] [place] [address] * (ABNORMAL) Hemogram (06/05/2022 12:43 AM EDT) White Blood Cell 7.3 4.0 - 9.5 x10(3)/[facility] Red Blood Cell 4.81 4.00 - 5.21 x10(6)/[facility] Hemoglobin 12.9 11.7 - 15.5 g/dL [facility] Hematocrit 39.6 35.7 - 45.8 % [facility] Mean Cell Volume 82.3(L) 82.6 - 94.4 fL [facility] Mean Cell Hemoglobin 26.8(L) 27.1 - 32.0 pg [facility] Mean Cell Hemoglobin Concentration 32.6 31.7 - 35.0 g/dL [facility] Platelet 177 145 - 357 x10(3)/[facility] RDW Standard Deviation 43.0 37.0 - 46.0 [facility] RDW coefficient of variation 14.4(H) 11.5 - 14.1 % [facility] Mean Platelet Volume 10.4 7.6 - 12.9 fL [facility] NRBC% auto 0.0 % [facility] NRBC Absolute 0.000 0.000 - 0.000 x10(3)/ L [facility] Blood 06/05/2022 12:4 3 AM EDT 06/05/2022 12:56 AM EDT Narrative Resulting Agency Comment Spec In Lab Rito Brooks MD HEMATOLOGY ORDERABLE S Performing Organization Address [facility] Co de Phone Number [facility] [place] [address] * Heparin (unfractionated) Level (06/05/2022 12:43 AM EDT) UF Heparin 0.33 IU/mL [facility] Comment: Heparin (anti-Xa) levels should be determined in a plasma sample that has been drawn 6 hours after a dose change to approximate steady-state for continuous heparin infusions. Indication specific Heparin (anti-Xa) levels based on order set selection: Acute DVT or PE treatment: 0.3 ? 0.7 IU/mL Thrombosis Prevention (eg. atrial fibrillation, cliff-procedural bridging, mechanical valves): 0.3 ? 0.7 IU/mL Acute Coronary Syndrome: 0.3 ? 0.7 IU/mL Stroke Indications: 0.3 ? 0.5 IU/mL Ultra-low intensity (select indications in cardiac surgery): 0.1 ? 0.3 IU/mL Blood 06/05/2022 12:4 3 AM EDT 06/05/2022 12:56 AM EDT Narrative Resulting Agency Comment Spec In Lab Rito Brooks MD HEMATOLOGY ORDERABLE S Performing Organization Address [facility]/ZIP Co de Phone Number [facility] [place] [address] * (ABNORMAL) Glucose, fasting (06/05/2022 12:43 AM EDT) Glucose Fasting 121(H) 65 - 99 mg/dL [facility] Comment: ?Fasting* Glucose Interpretive Criteria Normal ?65-99 mg/dL Impaired Fasting glucose ?100-125 mg/dL Consistent with Diabetes Mellitus ? >or= 126 mg/dL *Fasting is defined as no caloric intake for at least 8 hours In the absence of unequivocal hyperglycemia a plasma glucose value of >or= 126 mg/dL should be repeated on a subsequent day. Diagnosis and Classification of Diabetes Mellitus, Position Statement from the [place] [employer]. ??Diabetes Care, Volume 33, Supplement 1, Aug 2009 Blood 06/05/2022 12:4 3 AM EDT 06/05/2022 12:56 AM EDT Narrative Resulting Agency Comment Spec In Lab Rito Brooks MD CHEMISTRY ORDERABLES Performing Organization Address [facility]/ZIP Co de Phone Number [facility] [place] [address] * Triglyceride (06/05/2022 12:43 AM EDT) Triglyceride 95 mg/dL [facility] Comment: Average Risk/Lower Risk: <150 mg/dL Borderline High Risk: 150-199 mg/dL High Risk: 200-499 mg/dL Very High Risk: >ho=376 mg/dL Blood 06/05/2022 12:4 3 AM EDT 06/05/2022 12:56 AM EDT Narrative Resulting Agency Comment Spec In Lab Rito Brooks MD CHEMISTRY ORDERABLES Performing Organization Address [facility] Co de Phone Number [facility] [place] [address] * HDL/Cholesterol Profile (06/05/2022 12:43 AM EDT) Cholesterol, Total 114 mg/dL [facility] Comment: Lower Risk: <200 mg/dL Average Risk: 200-239 mg/dL Higher Risk: >ax=423 mg/dL HDL Cholesterol 48 mg/dL [facility] Comment: Males: ?? Higher Risk: <40 mg/dL Females: ?? Higher Risk: <50 mg/dL Cholesterol/HDL Ratio 2.4 ratio [facility] Chol/HDL Interpretation See Note [facility] Comment: Lipid management should be guided by a patient? s ASCVD risk, goals and preferences. ACC/AHA Guidelines recommend high intensity statin if clinical ASCVD or LDL greater than or equal to 190 mg/dL. http://Poptipurl.com/HZT-PIO-Ymgrbsvhi Measure LDL if Total Cholesterol minus HDL Cholesterol is greater than 220 mg/dL. Adults aged 40-75 with LDL 70-189 mg/dL should have their 10 year ASCVD risk estimated with the ACC/AHA ASCVD risk yardage estimator http://tools.acc.org/LSEZK-Ckmh-Npmijsrlg/ Statin should be discussed if risk greater than or equal to 7.5% in non-diabetics. With diabetes, moderate intensity statin is recommended if risk less than 7.5%, high intensity if risk greater than or equal to 7.5%. Annual lipid monitoring on statins is not necessary. Lifestyle modification is a critical component of ASCVD risk reduction. Blood 06/05/2022 12:4 3 AM EDT 06/05/2022 12:56 AM EDT Narrative Resulting Agency Comment Spec In Lab Rito Brooks MD CHEMISTRY ORDERABLES Performing Organization Address City/[facility] Co de Phone Number [facility] [place] [address] * LDL Cholesterol, Direct (06/05/2022 12:43 AM EDT) LDL Cholesterol, Direct 50 mg/dL [facility] Comment: Lowest Risk: <100 mg/dL Lower Risk: 100-129 mg/dL Borderline High Risk: 130-159 mg/dL High Risk: 160-189 mg/dL Very High Risk: >sp=411 mg/dL Blood 06/05/2022 12:4 3 AM EDT 06/05/2022 12:56 AM EDT Narrative Resulting Agency Comment Spec In Lab Riot Brooks MD CHEMISTRY ORDERABLES Performing Organization Address City/[facility] Co de Phone Number [facility] [place] [address] * Hemoglobin A1c (06/05/2022 12:43 AM EDT) Hemoglobin A1c 5.6 4.3 - 5.6 % [facility] Comment: Reference Range: 4.3 - 5.6% 5.7 - 6.4% - Increased Risk of Developing Diabetes Mellitus >= 6.5% - Consistent with diagnosis of Diabetes Mellitus In the absence of hyperglycemia (i.e. plasma glucose > 200 mg/dL) or classic symptoms of hyperglycemia a repeat measurement of HbA1c should be performed on a separate sample to confirm the diagnosis. Diagnosis and Classification of Diabetes Mellitus, Diabetes Care 2013; 36: Suppl. 1, S67-21 Estimated Average Glucose See note mg/dL [facility] Comment: Estimated Average Glucose not appropriate for patients over 70 years of age. eAG equivalents for HbA1c percentages: HbA1c(%) ?eAG(mg/dL) 6.0 ?126 6.5 ?140 7.0 ?154 7.5 ?169 8.0 ?183 8.5 ?197 9.0 ?212 9.5 ?226 10.0 ? 240 Limitations: The eAG calculation has not been validated on women, individuals below 18 years old and above 70 years old, and individuals with hemoglobinopathies. Additional resources are available on the ADA website. Alfonzo DIAZ, Nadine J, Bubba R, et al. ??Translating the A1C assay into estimated average glucose values. ??Diabetes Care 2008:31(8):6060-2290. Blood 06/05/2022 12:4 3 AM EDT 06/05/2022 12:56 AM EDT Narrative Resulting Agency Comment Spec In Lab Rito Brooks MD CHEMISTRY ORDERABLES [facility] [place] [address] * (ABNORMAL) BMP w/fasting Glucose (06/05/2022 12:43 AM EDT) Glucose Fasting 121(H) 65 - 99 mg/dL [facility] Comment: ?Fasting* Glucose Interpretive Criteria Normal ?65-99 mg/dL Impaired Fasting glucose ?100-125 mg/dL Consistent with Diabetes Mellitus ? >or= 126 mg/dL *Fasting is defined as no caloric intake for at least 8 hours In the absence of unequivocal hyperglycemia a plasma glucose value of >or= 126 mg/dL should be repeated on a subsequent day. Diagnosis and Classification of Diabetes Mellitus, Position Statement from the [place] [employer]. ??Diabetes Care, Volume 33, Supplement 1, Aug 2009 Blood Urea Nitrogen 12 8 - 18 mg/dL [facility] Creatinine 0.80 0.70 - 1.20 mg/dL [facility] Sodium 141 135 - 145 mmol/L [facility] Potassium 3.3(L) 3.5 - 5.0 mmol/L [facility] Comment: Please note: ??Patients with WBC >100,000 may have falsely elevated Potassium levels. ??For accurate Potassium quantification in these patients send serum separator tube (gold top) for subsequent determinations. ??Contact the Clinical Chemistry Laboratory if there are any questions. Chloride 107 98 - 107 mmol/L [facility] Carbon Dioxide 23 22 - 31 mmol/L [facility] Anion Gap 11 5 - 15 mmol/L [facility] Calcium 8.7 8.5 - 10.5 mg/dL [facility] Est Glomerular Filtration Rate 73 >=60 mL/min/1. 73 m?? [facility] Comment: This patient's estimated GFR was calculated using the 2020 CKD-EPI equation. The estimated GFR can vary from the measured GFR by up to 30% in the absence of rapidly changing kidney function. Assessment of the estimated GFR is not appropriate when creatinine concentrations are rapidly changing. For clinical situations in which a more precise estimate of GFR is necessary, consider alternative methods of GFR estimation such as a 24-hour urine creatinine clearance. Assignment of CKD stage 1-5 for patients with an eGFR near the transition point between stages may be based on clinical assessment of muscle mass and symptoms in addition to eGFR. Blood 06/05/2022 12:4 3 AM EDT 06/05/2022 12:56 AM EDT Narrative Resulting Agency Comment Spec In Lab Rito Brooks MD CHEMISTRY ORDERABLES [facility] [place] [address] * Differential, Automated (06/04/2022 9:22 PM EDT) Neutrophil % 69.7 % [facility] Neutrophil Absolute 5.65 1.70 - 6.10 x10(3)/[facility] LABORATORY Lymph % 21.4 % [facility] Lymphocytes Abs 1.7 0.9 - 3.2 x10(3)/[facility] LABORATORY Monocyte % 5.2 % [facility] Monocyte Abs 0.4 0.3 - 0.9 x10(3)/[facility] LABORATORY Eos % 3.3 % [facility] Eosinophils Abs 0.3 0.0 - 0.4 x10(3)/[facility] LABORATORY Basophil % 0.2 % [facility] Baso Absolute 0.0 0.0 - 0.1 x10(3)/[facility] LABORATORY Immature Gran % 0.20 % [facility] Comment: Immature granulocytes(IG's)percentage and absolute count will include metamyelocytes, myelocytes, and promyelocytes. Blood smears from CBCs yielding IG's will be scanned manually for concordance. If this scan disagrees with the automated IG or if promyelocytes are noted, a manual differential will be performed. Immature Gran Absolute 0.02 0.00 - 0.04 x10(3)/mcL [facility] Blood 06/04/2022 9:22 PM EDT 06/04/2022 9:32 PM EDT Narrative Resulting Agency Comment Spec In Lab Rito Brooks MD HEMATOLOGY ORDERABLE S [facility] [place] [address] * (ABNORMAL) Hemogram (06/04/2022 9:22 PM EDT) White Blood Cell 8.1 4.0 - 9.5 x10(3)/mc L [facility] Red Blood Cell 4.94 4.00 - 5.21 x10(6)/mc [facility] Hemoglobin 13.2 11.7 - 15.5 g/dL [facility] Hematocrit 41.0 35.7 - 45.8 % [facility] Mean Cell Volume 83.0 82.6 - 94.4 fL [facility] Mean Cell Hemoglobin 26.7(L) 27.1 - 32.0 pg [facility] Mean Cell Hemoglobin Concentration 32.2 31.7 - 35.0 g/dL [facility] Platelet 184 145 - 357 x10(3)/mc L [facility] RDW Standard Deviation 43.6 37.0 - 46.0 [facility] LABORATORY RDW coefficient of variation 14.5(H) 11.5 - 14.1 % [facility] Mean Platelet Volume 10.4 7.6 - 12.9 fL [facility] NRBC% auto 0.0 % [facility] NRBC Absolute 0.000 0.000 - 0.000 x10(3)/mc L [facility] Blood 06/04/2022 9:22 PM EDT 06/04/2022 9:32 PM EDT Narrative Resulting Agency Comment Spec In Lab Rito Brooks MD HEMATOLOGY ORDERABLE S [facility] [place] [address] * Heparin (unfractionated) Level (06/04/2022 9:22 PM EDT) UF Heparin 0.31 IU/mL [facility] Comment: Heparin (anti-Xa) levels should be determined in a plasma sample that has been drawn 6 hours after a dose change to approximate steady-state for continuous heparin infusions. Indication specific Heparin (anti-Xa) levels based on order set selection: Acute DVT or PE treatment: 0.3 ? 0.7 IU/mL Thrombosis Prevention (eg. atrial fibrillation, cliff-procedural bridging, mechanical valves): 0.3 ? 0.7 IU/mL Acute Coronary Syndrome: 0.3 ? 0.7 IU/mL Stroke Indications: 0.3 ? 0.5 IU/mL Ultra-low intensity (select indications in cardiac surgery): 0.1 ? 0.3 IU/mL Blood 06/04/2022 9:22 PM EDT 06/04/2022 9:32 PM EDT Narrative Resulting Agency Comment Spec In Lab Rito Brooks MD HEMATOLOGY ORDERABLE S [facility] [place] [address] * (ABNORMAL) Troponin (06/04/2022 9:22 PM EDT) Troponin-T, High Sensitivity 27(H) <=14 ng/L [facility] Comment: This patient's troponin T concentration was determined using the Rula 5th Generation troponin T assay. The 99th percentile for Troponin T for this test is 14 ng/L for females, and 22 ng/L for males. According to the fourth universal definition of myocardial infarction, the term acute myocardial infarction should be used when there is acute myocardial injury with clinical evidence of acute myocardial ischemia and with detection of a rise and/or fall of cardiac troponin values with at least one value above the 99th percentile and at least one of the following: - Symptoms of myocardial ischemia; - New ischemic ECG changes; - Development of pathological Q waves; - Imaging evidence of new loss of viable myocardium or new regional wall motion abnormality in a pattern consistent with an ischemic etiology; - Identification of a coronary thrombus by angiography or autopsy (not for type 2 or 3 MIs) Serial measurement of troponin and the change in troponin concentration over time (delta) is crucial for the diagnosis of acute myocardial infarction. Guidance on the interpretation of the new 5th Generation Troponin T values and the delta troponin value can be found in the [facility] Laboratory Test Catalog Troponin - [facility] Laboratory Test Catalog Reference: Fourth Dalzell Definition of Myocardial Infarction. Journal of the [place] [employer] 2018;72:7910-5213 Blood 06/04/2022 9:22 PM EDT 06/04/2022 9:32 PM EDT Narrative Resulting Agency Comment Spec In Lab Rito Brooks MD CHEMISTRY ORDERABLES Performing Organization Address [facility] Co de Phone Number [facility] [place] [address] * EKG 12 Lead (06/04/2022 9:14 PM EDT) Ventricular rate 64 BPM MUSE SYSTEM Atrial Rate 64 BPM MUSE SYSTEM P-R Interval 204 ms MUSE SYSTEM QRS Duration 100 ms MUSE SYSTEM Q-T Interval 428 ms MUSE SYSTEM QTC Calculated (Bezet) 441 ms MUSE SYSTEM Calculated P [place] 68 degrees MUSE SYSTEM Calculated R [place] -58 degrees MUSE SYSTEM Calculated T [place] 119 degrees MUSE SYSTEM INTERPRETATION Sinus rhythm Occasional Premature ventricular complexes Left axis deviation Poor R wave progression T wave abnormality, consider lateral ischemia Abnormal ECG When compared with ECG of 04-JUN-2022 17:57, Premature ventricular complexes are now Present Confirmed by MD Marylu, Tony ([id number]) on 06/05/2022 10:35:08 AM MUSE SYSTEM 06/04/2022 9:14 PM EDT 06/05/2022 10:35 AM EDT Rito Brooks MD ECG ORDERABLES MUSE SYSTEM * TSH (06/04/2022 6:31 PM EDT) [facility] Thyroid Stimulating Hormone 2.93 0.27 - 4.20 mcIU/mL [facility] Comment: Reference Interval (mcIU/mL): Females: ??First Trimester: 0.23-3.88 ??Second Trimester: 0.22-3.90 ??Third Trimester: 0.44-4.66 Blood Venous Draw / Unknown 06/04/2022 6:31 PM EDT 06/04/2022 6:42 PM EDT Narrative Resulting Agency Comment Spec In Lab Rito Brooks MD CHEMISTRY ORDERABLES [facility] [place] [address] * (ABNORMAL) Differential, Automated (06/04/2022 6:31 PM EDT) [facility] Neutrophil % 74.6 % [facility] Neutrophil Absolute 6.56(H) 1.70 - 6.10 x10(3)/mc L [facility] Lymph % 17.2 % [facility] Lymphocytes Abs 1.5 0.9 - 3.2 x10(3)/mc L [facility] Monocyte % 5.1 % [facility] Monocyte Abs 0.4 0.3 - 0.9 x10(3)/mc L [facility] Eos % 2.6 % [facility] Eosinophils Abs 0.2 0.0 - 0.4 x10(3)/mc L [facility] Basophil % 0.3 % [facility] Baso Absolute 0.0 0.0 - 0.1 x10(3)/mc L [facility] Immature Gran % 0.20 % [facility] Comment: Immature granulocytes(IG's)percentage and absolute count will include metamyelocytes, myelocytes, and promyelocytes. Blood smears from CBCs yielding IG's will be scanned manually for concordance. If this scan disagrees with the automated IG or if promyelocytes are noted, a manual differential will be performed. Immature Gran Absolute 0.02 0.00 - 0.04 x10(3)/mc L [facility] Blood 06/04/2022 6:31 PM EDT 06/04/2022 6:37 PM EDT Narrative Resulting Agency Comment Spec In Lab Rito Brooks MD HEMATOLOGY ORDERABLE S [facility] [place] [address] * (ABNORMAL) Hemogram (06/04/2022 6:31 PM EDT) White Blood Cell 8.8 4.0 - 9.5 x10(3)/ L [facility] Red Blood Cell 5.00 4.00 - 5.21 x10(6)/ L [facility] Hemoglobin 13.5 11.7 - 15.5 g/dL [facility] Hematocrit 41.8 35.7 - 45.8 % [facility] Mean Cell Volume 83.6 82.6 - 94.4 fL [facility] Mean Cell Hemoglobin 27.0(L) 27.1 - 32.0 pg [facility] Mean Cell Hemoglobin Concentration 32.3 31.7 - 35.0 g/dL [facility] Platelet 204 145 - 357 x10(3)/mc L [facility] RDW Standard Deviation 43.6 37.0 - 46.0 [facility] LABORATORY RDW coefficient of variation 14.4(H) 11.5 - 14.1 % [facility] Mean Platelet Volume 10.5 7.6 - 12.9 [facility] LABORATORY NRBC% auto 0.0 % [facility] NRBC Absolute 0.000 0.000 - 0.000 x10(3)/mc L [facility] Blood 06/04/2022 6:31 PM EDT 06/04/2022 6:42 PM EDT Narrative Resulting Agency Comment Spec In Lab Rito Brooks MD HEMATOLOGY ORDERABLE S [facility] [place] [address] * (ABNORMAL) Troponin (06/04/2022 6:31 PM EDT) Troponin-T, High Sensitivity 28(H) <=14 ng/L [facility] Comment: This patient's troponin T concentration was determined using the Rula 5th Generation troponin T assay. The 99th percentile for Troponin T for this test is 14 ng/L for females, and 22 ng/L for males. According to the fourth universal definition of myocardial infarction, the term acute myocardial infarction should be used when there is acute myocardial injury with clinical evidence of acute myocardial ischemia and with detection of a rise and/or fall of cardiac troponin values with at least one value above the 99th percentile and at least one of the following: - Symptoms of myocardial ischemia; - New ischemic ECG changes; - Development of pathological Q waves; - Imaging evidence of new loss of viable myocardium or new regional wall motion abnormality in a pattern consistent with an ischemic etiology; - Identification of a coronary thrombus by angiography or autopsy (not for type 2 or 3 MIs) Serial measurement of troponin and the change in troponin concentration over time (delta) is crucial for the diagnosis of acute myocardial infarction. Guidance on the interpretation of the new 5th Generation Troponin T values and the delta troponin value can be found in the [facility] Laboratory Test Catalog Troponin - [facility] Laboratory Test Catalog Reference: Fourth Dalzell Definition of Myocardial Infarction. Journal of the [place] College [employer] 2018;72:2671-3063 Blood 06/04/2022 6:31 PM EDT 06/04/2022 6:37 PM EDT Narrative Resulting Agency Comment Spec In Lab Rito Brooks MD CHEMISTRY ORDERABLES [facility] [place] [address] * Heparin (unfractionated) Level (06/04/2022 6:31 PM EDT) UF Heparin 0.17 IU/mL [facility] Comment: Heparin (anti-Xa) levels should be determined in a plasma sample that has been drawn 6 hours after a dose change to approximate steady-state for continuous heparin infusions. Indication specific Heparin (anti-Xa) levels based on order set selection: Acute DVT or PE treatment: 0.3 ? 0.7 IU/mL Thrombosis Prevention (eg. atrial fibrillation, cliff-procedural bridging, mechanical valves): 0.3 ? 0.7 IU/mL Acute Coronary Syndrome: 0.3 ? 0.7 IU/mL Stroke Indications: 0.3 ? 0.5 IU/mL Ultra-low intensity (select indications in cardiac surgery): 0.1 ? 0.3 IU/mL Blood 06/04/2022 6:31 PM EDT 06/04/2022 6:37 PM EDT Narrative Resulting Agency Comment Spec In Lab Rito Brooks MD HEMATOLOGY ORDERABLE S [facility] [place] [address] * (ABNORMAL) BMP w/fasting Glucose (06/04/2022 6:31 PM EDT) Glucose Fasting 111(H) 65 - 99 mg/dL [facility] Comment: ?Fasting* Glucose Interpretive Criteria Normal ?65-99 mg/dL Impaired Fasting glucose ?100-125 mg/dL Consistent with Diabetes Mellitus ? >or= 126 mg/dL *Fasting is defined as no caloric intake for at least 8 hours In the absence of unequivocal hyperglycemia a plasma glucose value of >or= 126 mg/dL should be repeated on a subsequent day. Diagnosis and Classification of Diabetes Mellitus, Position Statement from the [place] [employer]. ??Diabetes Care, Volume 33, Supplement 1, Aug 2009 Blood Urea Nitrogen 13 8 - 18 mg/dL [facility] Creatinine 0.75 0.70 - 1.20 mg/dL [facility] Sodium 141 135 - 145 mmol/L [facility] Potassium 3.8 3.5 - 5.0 mmol/L [facility] Comment: Please note: ??Patients with WBC >100,000 may have falsely elevated Potassium levels. ??For accurate Potassium quantification in these patients send serum separator tube (gold top) for subsequent determinations. ??Contact the Clinical Chemistry Laboratory if there are any questions. Chloride 106 98 - 107 mmol/L [facility] Carbon Dioxide 24 22 - 31 mmol/L [facility] Anion Gap 11 5 - 15 mmol/L [facility] Calcium 8.8 8.5 - 10.5 mg/dL [facility] Est Glomerular Filtration Rate 78 >=60 mL/min/1. 73 m?? [facility] Comment: This patient's estimated GFR was calculated using the 2020 CKD-EPI equation. The estimated GFR can vary from the measured GFR by up to 30% in the absence of rapidly changing kidney function. Assessment of the estimated GFR is not appropriate when creatinine concentrations are rapidly changing. For clinical situations in which a more precise estimate of GFR is necessary, consider alternative methods of GFR estimation such as a 24-hour urine creatinine clearance. Assignment of CKD stage 1-5 for patients with an eGFR near the transition point between stages may be based on clinical assessment of muscle mass and symptoms in addition to eGFR. Blood 06/04/2022 6:31 PM EDT 06/04/2022 6:37 PM EDT Narrative Resulting Agency Comment Spec In Lab Rito Brooks MD CHEMISTRY ORDERABLES [facility] [place] [address] * EKG 12 Lead (06/04/2022 5:57 PM EDT) Ventricular rate 56 BPM MUSE SYSTEM Atrial Rate 56 BPM MUSE SYSTEM P-R Interval 204 ms MUSE SYSTEM QRS Duration 92 ms MUSE SYSTEM Q-T Interval 408 ms MUSE SYSTEM QTC Calculated (Bezet) 393 ms MUSE SYSTEM Calculated P [place] 19 degrees MUSE SYSTEM Calculated R [place] -51 degrees MUSE SYSTEM Calculated T [place] 148 degrees MUSE SYSTEM INTERPRETATION Poor data quality, interpretation may be adversely affected Sinus bradycardia Left axis deviation Poor R wave progression ST & T wave abnormality, consider lateral ischemia Abnormal ECG When compared with ECG of 07-MAY-2020 09:38, No significant change was found Confirmed by MD Marylu, Tony ([id number]) on 06/05/2022 10:34:09 AM MUSE SYSTEM 06/04/2022 5:57 PM EDT 06/05/2022 10:34 AM EDT Rito Brooks MD ECG ORDERABLES MUSE SYSTEM documented in this encounter Visit Diagnoses Not on filedocumented in this encounter Admitting Diagnoses Diagnosis NSTEMI (non-ST elevated myocardial infarction) Acute myocardial infarction, subendocardial infarction, episode of care unspecified documented in this encounter Administered Medications Inactive Administered Medications - up to 3 most recent administrations Medication Order MAR Action Action Date Dose Rate Site acetaminophen (Tylenol) tablet 650 mg 650 mg, Oral, EVERY 4 HOURS PRN, Starting on Tue06/04/22 at 2017, Until Tue06/09/22 at 1520, Pain, Headaches, Maximum dose of acetaminophen is 4000 mg from all sources in 24 hours. When ordered for pain, acetaminophen should be given even when other ordered pain medications are indicated. , Routine Given 06/09/2022 4:56 AM EDT 325 mg Given 06/07/2022 9:53 AM EDT 325 mg Given 06/06/2022 7:33 AM EDT 650 mg amLODIPine (Norvasc) tablet 10 mg 10 mg, Oral, DAILY, First dose (after last modification) on 06/07/22 at 1000, Until Discontinued, Routine Given 06/09/2022 10:55 AM EDT 10 mg Given 06/08/2022 10:06 AM EDT 10 mg Given 06/07/2022 10:10 AM EDT 10 mg aspirin EC tablet 81 mg 81 mg, Oral, DAILY, First dose on 06/05/22 at 0900, Until Discontinued, Routine Given 06/09/2022 8:41 AM EDT 81 mg Given 06/08/2022 8:16 AM EDT 81 mg Given 06/07/2022 10:45 AM EDT 81 mg ezetimibe (Zetia) tablet 10 mg 10 mg, Oral, DAILY, First dose on 06/05/22 at 0900, Until Discontinued, Routine Given 06/09/2022 8:41 AM EDT 10 mg Given 06/08/2022 8:16 AM EDT 10 mg Given 06/07/2022 10:10 AM EDT 10 mg fentaNYL (pf) (50 mcg/mL) multi-dose injection ONCE PRN, Starting on Tue06/08/22 at 1600, Until Tue06/08/22 at 1719, Intra-Operative (Intra-Procedure), Routine Given 06/08/2022 4:27 PM EDT 25 mcg Given 06/08/2022 4:00 PM EDT 12.5 mcg fluticasone propion-salmeteroL (ADVAIR) 250-50 mcg/dose diskus inhaler 1 puff 1 puff, Inhalation, 2 TIMES DAILY, First dose on 06/05/22 at 1115, Until Discontinued, Rinse mouth after administration Patient refusing alternative options ie symbicort Patient's own medication, Routine Given 06/09/2022 8:40 AM EDT 1 puff Given 06/08/2022 8:40 PM EDT 1 puff Given 06/08/2022 8:16 AM EDT 1 puff heparin (porcine) (1,000 units/mL) injection ONCE PRN, Starting on Tue06/08/22 at 1602, Until Tue06/08/22 at 1719, Cath (Intra-Procedure), Routine Given 06/08/2022 4:02 PM EDT 3,000 Units hydrALAZINE (Apresoline) (20 mg/mL) injection 10 mg 10 mg, Intravenous, EVERY 6 HOURS PRN, Starting on Tue06/04/22 at 2017, Until Tue06/09/22 at 1520, High Blood Pressure, for SBP >160 Given 06/07/2022 4:40 AM EDT 10 mg Given 06/06/2022 4:47 AM EDT 10 mg Given 06/05/2022 4:45 PM EDT 10 mg iohexoL (Omnipaque) (350 mg/mL) solution ONCE PRN, Starting on Tue06/08/22 at 1639, Until Tue06/08/22 at 1719, Cath (Intra-Procedure), Routine Given 06/08/2022 4:39 PM EDT 70 mLs losartan (Cozaar) tablet 100 mg 100 mg, Oral, DAILY, First dose (after last modification) on Tue06/06/22 at 1000, Until Discontinued, Routine Given 06/09/2022 10:55 AM EDT 100 mg Given 06/08/2022 10:06 AM EDT 100 mg Given 06/07/2022 10:10 AM EDT 100 mg midazolam (pf) (Versed) (1 mg/mL) multi-dose injection ONCE PRN, Starting on Tue06/08/22 at 1600, Until Tue06/08/22 at 1719, Cath (Intra-Procedure), Routine Given 06/08/2022 4:27 PM EDT 1 mg Given 06/08/2022 4:00 PM EDT 0.5 mg nitroGLYcerin 100 mcg/mL intracoronary dilution ONCE PRN, Starting on Tue06/08/22 at 1626, Until Tue06/08/22 at 1719, Cath (Intra-Procedure), Routine Given 06/08/2022 4:26 PM EDT 200 mcg sodium chloride 0.9 % (flush) (BD PosiFlush Normal Saline 0.9) flush 5 mL 5 mL, Intravenous, 2 TIMES DAILY, First dose on Tue06/04/22 at 2115, Until Discontinued, Routine Given 06/09/2022 8:41 AM EDT 5 mLs Given 06/08/2022 8:40 PM EDT 5 mLs Given 06/08/2022 8:28 AM EDT 5 mLs spironolactone (Aldactone) tablet 12.5 mg 12.5 mg, Oral, DAILY, First dose on Tue06/09/22 at 0900, Until Discontinued, DO NOT SPLIT, CRUSH OR OPEN, Routine verapamiL (Isoptin) (2.5 mg/mL) injection ONCE PRN, Starting on Tue06/08/22 at 1626, Until Tue06/08/22 at 1719, Administer over 2 Minutes, Cath (Intra-Procedure) Given 06/08/2022 4:26 PM EDT 2.5 mg documented in this encounter Active and Recently Administered Medications Times are shown in EDT. Scheduled Medication Order 06/07/2022 06/08/2022 06/09/2022 amLODIPine (Norvasc) tablet 10 mg 10 mg, Oral, DAILY, First dose (after last modification) on Tue06/07/22 at 1000, Until Discontinued, Routine 1010 (Given - Provider: Shamika García RN) 1006 (Given - Provider: Valentina Arguelles RN)1552 ([facility] Hold - Provider: Admin Adt - Reason: Transfer to a Procedural area)1719 ([facility] Unhold - Provider: Admin Adt) 1055 (Given - Provider: Valentina Arguelles RN) aspirin EC tablet 81 mg 81 mg, Oral, DAILY, First dose on 06/05/22 at 0900, Until Discontinued, Routine 1045 (Given - Provider: Shamika García RN) 0816 (Given - Provider: Valentina Arguelles RN)1552 ([facility] Hold - Provider: Admin Adt - Reason: Transfer to a Procedural area)1719 ([facility] Unhold - Provider: Admin Adt) 0841 (Given - Provider: Valentina Arguelles RN) clopidogreL (Plavix) tablet 300 mg (COMPLETED) 300 mg, Oral, ONCE, 1 dose, On Tue06/07/22 at 1800, Routine 1755 (Given - Provider: Shamika García RN) clopidogreL (Plavix) tablet 75 mg (CANCELED) 75 mg, Oral, DAILY, First dose on Tu06/08/22 at 0900, Until Discontinued, Routine 0816 (Given - Provider: Valentina Arguelles RN)1552 ([facility] Hold - Provider: Admin Adt - Reason: Transfer to a Procedural area)1719 ([facility] Unhold - Provider: Admin Adt) ezetimibe (Zetia) tablet 10 mg 10 mg, Oral, DAILY, First dose on 06/05/22 at 0900, Until Discontinued, Routine 1010 (Given - Provider: Shamika García RN) 0816 (Given - Provider: Valentina Arguelles RN)1552 ([facility] Hold - Provider: Admin Adt - Reason: Transfer to a Procedural area)1719 ([facility] Unhold - Provider: Admin Adt) 0841 (Given - Provider: Valentina Arguelles RN) fluticasone propion-salmeteroL (ADVAIR) 250-50 mcg/dose diskus inhaler 1 puff 1 puff, Inhalation, 2 TIMES DAILY, First dose on 06/05/22 at 1115, Until Discontinued, Rinse mouth after administration Patient refusing alternative options ie symbicort Patient's own medication, Routine 1044 (Given - Provider: Shamika García RN)2009 (Given - Provider: Deanna Westfall RN) 0816 (Given - Provider: Valentina Arguelles RN)1552 ([facility] Hold - Provider: Admin Adt - Reason: Transfer to a Procedural area)1719 ([facility] Unhold - Provider: Admin Adt)2040 (Given - Provider: Deanna Westfall RN) 0840 (Given - Provider: Valentina Arguelles RN) losartan (Cozaar) tablet 100 mg 100 mg, Oral, DAILY, First dose (after last modification) on 06/06/22 at 1000, Until Discontinued, Routine 1010 (Given - Provider: Shamika García RN) 1006 (Given - Provider: Valentina Arguelles RN)1552 ([facility] Hold - Provider: Admin Adt - Reason: Transfer to a Procedural area)1719 ([facility] Unhold - Provider: Admin Adt) 1055 (Given - Provider: Valentina Arguelles RN) metoprolol tartrate (Lopressor) tablet 12.5 mg (CANCELED) 12.5 mg, Oral, EVERY 6 HOURS SCHEDULED, First dose on 06/05/22 at 0000, Until Discontinued, Hold for SBP <90 or HR <60, Routine 0503 (Given - Provider: Deanna Westfall RN)1327 (Given - Provider: Shamika García RN)1755 (Given - Provider: Shamika García RN) 0000 (Not Given - Provider: Deanna Westfall RN - Reason: Order parameters not met)0600 (Not Given - Provider: Deanna Westfall RN - Reason: Order parameters not met)1232 (Given - Provider: Valentina Arguelles RN)1552 (OCT Hold - Provider: Admin Adt - Reason: Transfer to a Procedural area)1719 (OCT Unhold - Provider: Admin Adt)1923 (Given - Provider: Valentina Arguelles, LENKA) 0000 (Not Given - Provider: Deanna Westfall RN - Reason: Order parameters not met)0600 (Not Given - Provider: Deanna Westfall RN - Reason: Order parameters not met) regadenoson (Lexiscan) injection 0.4 mg (COMPLETED) 0.4 mg, Intravenous, ONCE, 1 dose, On Tue06/07/22 at 0945, Radiology Contrast, Routine 0852 (Given - Provider: Chris Acosta) sodium chloride 0.9 % (flush) (BD PosiFlush Normal Saline 0.9) flush 5 mL 5 mL, Intravenous, 2 TIMES DAILY, First dose on Tue06/04/22 at 2115, Until Discontinued, Routine 0900 (Given - Provider: Shamika García RN)1044 (Discarded - Provider: Shamika García RN)2008 (Given - Provider: Deanna Westfall RN) 0828 (Given - Provider: Valentina Arguelles RN)1552 (OCT Hold - Provider: Admin Adt - Reason: Transfer to a Procedural area)1719 (OCT Unhold - Provider: Admin Adt)204 (Given - Provider: Deanna Westfall RN) 0841 (Given - Provider: Valnetina Arguelles, LENKA) spironolactone (Aldactone) tablet 12.5 mg 12.5 mg, Oral, DAILY, First dose on Tue06/09/22 at 0900, Until Discontinued, DO NOT SPLIT, CRUSH OR OPEN, Routine 0900 (Not Given - Provider: Valentina Arguelles RN - Reason: Patient/family refused) Continuous Medication Order 06/07/2022 06/08/2022 06/09/2022 sodium chloride 0.9% infusion () 75 mL/hr, Intravenous, CONTINUOUS, Starting on Tue06/08/22 at 1730, Until Tue06/08/22 at 2129, Recovery (Recovery-Hospital Unit) 1710 (New Bag - Provider: Arun Munoz, LENKA) PRN Medication Order 06/07/2022 06/08/2022 06/09/2022 acetaminophen (Tylenol) tablet 650 mg 650 mg, Oral, EVERY 4 HOURS PRN, Starting on Tue06/04/22 at 2016, Until Tue06/09/22 at 1520, Pain, Headaches, Maximum dose of acetaminophen is 4000 mg from all sources in 24 hours. When ordered for pain, acetaminophen should be given even when other ordered pain medications are indicated. , Routine 0953 (Given - Provider: Leti Felipe RN) 1552 (OCT Hold - Provider: Admin Adt - Reason: Transfer to a Procedural area)1719 (OCT Unhold - Provider: Admin Adt) 0456 (Given - Provider: Deanna Westfall RN - Comment: patient request) fentaNYL (pf) (50 mcg/mL) multi-dose injection (CANCELED) ONCE PRN, Starting on Tue06/08/22 at 1600, Until Tue06/08/22 at 1719, Intra-Operative (Intra-Procedure), Routine 1600 (Given - Provider: Diana Cordova, LENKA)1627 (Given - Provider: Diana Cordova, LENKA) heparin (porcine) (1,000 units/mL) injection (CANCELED) ONCE PRN, Starting on Tue06/08/22 at 1602, Until Tue06/08/22 at 1719, Cath (Intra-Procedure), Routine 1602 (Given - Provider: Fortino Brewer RN) hydrALAZINE (Apresoline) (20 mg/mL) injection 10 mg 10 mg, Intravenous, EVERY 6 HOURS PRN, Starting on Tue06/04/22 at 2017, Until Tue06/09/22 at 1520, High Blood Pressure, for SBP >160 0440 (Given - Provider: Deanna Westfall RN) 1552 (OCT Hold - Provider: Admin Adt - Reason: Transfer to a Procedural area)1719 ([facility] Unhold - Provider: Admin Adt) iohexoL (Omnipaque) (350 mg/mL) solution (CANCELED) ONCE PRN, Starting on Tue06/08/22 at 1639, Until Tue06/08/22 at 1719, Cath (Intra-Procedure), Routine 1639 (Given - Provider: Doug Ruiz MD) midazolam (pf) (Versed) (1 mg/mL) multi-dose injection (CANCELED) ONCE PRN, Starting on Tue06/08/22 at 1600, Until Tue06/08/22 at 1719, Cath (Intra-Procedure), Routine 1600 (Given - Provider: Diana Cordova, LENKA)1627 (Given - Provider: Diana Cordova RN) nitroGLYcerin (Nitrostat) disintegrating tablet 0.4 mg 0.4 mg, Sublingual, EVERY 5 MIN PRN, Starting on Tue06/04/22 at 2017, Until Tue06/09/22 at 1520, Chest pain, May repeat every 5 minutes for a total of three doses. Notify provider if chest pain not relieved with nitroglycerin. Do not administer nitroglycerin if the patient has received or taken phosphodiesterase (PDE-5) inhibitors such as sildenafil, tadalafil or vardenafil within the last 24 to 72 hours., Routine 1552 (OCT Hold - Provider: Admin Adt - Reason: Transfer to a Procedural area)171 ([facility] Unhold - Provider: Admin Adt) nitroGLYcerin 100 mcg/mL intracoronary dilution (CANCELED) ONCE PRN, Starting on Tue06/08/22 at 1626, Until Tue06/08/22 at 1719, Cath (Intra-Procedure), Routine 1626 (Given - Provider: Doug Ruiz MD) sodium chloride 0.9 % (flush) (BD PosiFlush Normal Saline 0.9) flush 5-20 mL 5-20 mL, Intravenous, EVERY 1 MIN PRN, Starting on Tue06/04/22 at 2017, Until Tue06/09/22 at 1520, flush, Flush pertains to all indwelling lines. Flush per protocol found in the job aid using the link provided on this medication record., Routine 1552 (OCT Hold - Provider: Admin Adt - Reason: Transfer to a Procedural area)1718 ([facility] Unhold - Provider: Admin Adt) technetium (Tc-99m) sestamibi injection 0-30 mCi (COMPLETED) 0-30 mCi, Intravenous, 2 TIMES DAILY PRN, 2 doses, Starting on Tue06/07/22 at 0805, Until 06/07/22 at 0852, Per Protocol, Radiology Contrast, Routine 0750 (Given - Provider: Gemma Griffin - Comment: InJ Site: LT Hand)0852 (Given - Provider: Chris Acosta) verapamiL (Isoptin) (2.5 mg/mL) injection (CANCELED) ONCE PRN, Starting on Tue06/08/22 at 1626, Until Tue06/08/22 at 1719, Administer over 2 Minutes, Cath (Intra-Procedure) 1626 (Given - Provider: Doug Ruiz MD) documented in this encounter Care Teams Boat Painter Relationship Specialty Start Date End Date Andrew Novak, [employer]ER [address] [place] [address] PCP - General Family Medicine 08/15/20 09/18/23 documented as of this encounter
--- OUTSIDE RECORDS SUMMARY | 2024-03-29 03:34 | XMS_ITS | Encounter Summary ---
[place] [address] Care Team Providers Care Gate Operator Name Role Phone Andrew Novak APRN Primary Care Provider +1- [phone] Encounter Details Date Type Department Care Team (Late st Contact Info) Description 06/03/2022 12:10 AM EDT Ancillary Procedure [place]iology [place] [id number] Kal Child MD [address] [facility] TELE-[place] [address] Social History Tobacco Use Types Packs/Day Years [...] < 70 Result Component No Michael Mckinnon, [facility] documented as of this encounter Procedures Procedure Name Priority Date/Time Associated Diagnosis Comments FILM LIBRARY STORAGE ONLY CT CHEST Routine 06/03/2022 12:10 AM EDT documented in this encounter Results * Film Library- Storage Only CT Chest (06/03/2022 12:10 AM EDT) Narrative [facility] - 06/04/2022 12:37 AM EDT This exam is auto-finalizing. It's purpose is for storage only. Kal Child MD IM FILM LIBRARY ORD ERABLES [facility] [place], [place] documented in this encounter Visit Diagnoses Not on filedocumented in this encounter Care Teams Gate Operator Relationship Specialty Start Date End Date Andrew Novak APRN [address] [place] [address] PCP - General Family Medicine 08/15/20 09/18/23 documented as of this encounter
--- OUTSIDE RECORDS SUMMARY | 2024-03-29 03:34 | XMS_ITS | Encounter Summary ---
[place] [address] Care Team Providers Care Talent Development Director Name Role Phone Andrew Novak APRN Primary Care Provider +1- [phone] Reason for Visit * Reason Comments Medication Refill Encounter Details Date Type Department Care Team ([facility] st Contact Info) Description 05/19/2022 Specialty [place] [phone] Tracy Sanchez Rosalba Social History Tobacco Use Types Packs/Day [...] as of this encounter Progress Notes * Tracy Sanchez RPH - 05/19/2022 12:05 PM EDT Clinical Management Plan: Refill Specialty Pharmacy Consultation; Tracy Sanchez RPH Comprehensive Medication Management (CMM) Ginger Amador [...] yes, should the medication be held: No Assessment and Recommendations: Medication Management Type of Medication Management: chronic disease management, targeted medication review Referred By: provider Recipient: beneficiary Provider: plan sponsor pharmacist [facility] Follow-up Time Spent: 1-15 min Method of Contact: by telephone Cognitive Ability: good Cognitive Impairment Status Verified this Year: no Allergies and Drug intolerance: Allergies Allergen Reactions ??? Bacitracin ??? Gabapentin Other (See Comments) [place] like a zombie ??? Gramicidin D ??? Ibuprofen ??? Lidocaine ??? Neomycin Sulfate ??? Neosporin [Hydrocortisone] ??? Polymyxin B ??? Polymyxin B Sulfate ??? Soy ??? Tzqrohx-Vqy-Nhp Reductase Inhibitors Other (See Comments) Muscle soreness/weakness, fatigue ??? Sulfa (Sulfonamide Antibiotics) ??? Wheat Nausea And Vomiting Extreme fatigue and sleepiness Medication Reconciliation Discrepancies (compared to [facility] med list) -none Specialty Pharmacy Refill Questionnaire Refill Questionnaire 05/19/2022 What is the name of the specialty medication you are refilling? Praluent Are you taking any new medications? No Any new medical condition? No Any new allergies? No Any missed doses since your last fill? No Please explain - Any new side effects that are bothersome? No What date will you need this fill by? 06/09/2022 Adherence: missed 1-2 doses while in [place] caring for daughter. Feels renewed sense of importance of adherence after appointment with provider. Specialty Med Adherence Patient Demonstrates Understanding of Importance of Adherence: Yes Educational Information or Adherence Tools Provided: Yes How many doses does patient have remaining at home?: 1 Patient Reported X Missed Doses in the Last Month: 1-2 If >0, reason for missed doses: memory Provider-Estimated Medication Adherence Level: 76-89% Adherence Tools Used: calendar, cell phone Pt understands no changes to current drug regimen were made at the appointment and that [facility] is providing recommendations (summary located at top of note) for provider review and follow up. Tracy Sanchez RPH 05/19/22 12:07 PM documented in this encounter Plan of Treatment Not on file documented as of this encounter Goals Goal Patient Goal Type Associated Problems Recent Progress Patient-Stated? Author LDL CALC < 70 Result Component No Michael Mckinnon, [facility] documented as of this encounter Visit Diagnoses Not on filedocumented in this encounter Care Teams Talent Development Director Relationship Specialty Start Date End Date Andrew Novak APRN [address] [place] [address] PCP - General Family Medicine 08/15/20 09/18/23 documented as of this encounter
--- OUTSIDE RECORDS SUMMARY | 2024-03-29 03:34 | XMS_ITS | Encounter Summary ---
[place] [address] Care Team Providers Care X Ray Consultant Name Role Phone Andrew Novak APRN Primary Care Provider +1- [phone] Encounter Details Date Type Department Care Team (Late st Contact Info) Description 06/03/2022 External [place] [address] Social History Tobacco Use Types Packs/Day Years [...] [place] documented as of this encounter Procedures Procedure Name Priority Date/Time Associated Diagnosis Comments ECG SCAN Routine 06/03/2022 documented in this encounter Results * Scan Doc: ECG (06/03/2022) Historical Provider MD BLUE MGR SCAN EX T ORDR/RSLT documented in this encounter Visit Diagnoses Not on filedocumented in this encounter Care Teams X Ray Consultant Relationship Specialty Start Date End Date Andrew Novak APRN [address] [place], [place] [address] PCP - General Family Medicine 08/15/20 09/18/23 documented as of this encounter
--- OUTSIDE RECORDS SUMMARY | 2024-03-29 03:34 | XMS_ITS | Encounter Summary ---
Author Organization [facility] [place] [address] Care Team Providers Care Medical Driver Name Role Phone Andrew Novak APRN Primary Care Provider +1- [phone] Encounter Details Date Type Department Care Team (Late st Contact Info) Description 06/04/2022 Telephone Cardiology at [address] [phone] Des Torres MD [facility] [place] [address] Social History Tobacco Use Types Packs/Day Years [...] encounter Miscellaneous Notes * Telephone Encounter - Des Torres - 06/04/2022 1:18 AM EDT Telephone Note Update Provider called me back stating CTA was negative. Hs Tn 90s --> 160s, EKG and vitals unchanged. I asked that she receive 600 mg plavix, asa, heparin. She will be transferred here for NSTEMI. As in the previous note, patient was an initial trauma admit. Per provider, she has a large hematoma around one of the eyes which, on CT scan, was superficial with negative CTH. At the [facility], we will have our trauma MD review the scans of her head, C spine, A/P prior toheparin. Des Torres documented in this encounter Plan of Treatment Not on file documented as of this encounter Goals Goal Patient Goal Type Associated Problems Recent Progress Patient-Stated? Author LDL CALC < 70 Result Component No Michael Mckinnon, [facility] documented as of this encounter Visit Diagnoses Not on filedocumented in this encounter Care Teams Medical Driver Relationship Specialty Start Date End Date Andrew Novak, [place] [address] [place] [address] PCP - General Family Medicine 08/15/20 09/18/23 documented as of this encounter
--- OUTSIDE RECORDS SUMMARY | 2024-03-29 03:34 | XMS_ITS | Encounter Summary ---
[place] [address] Care Team Providers Care Dynamometer Tuner Name Role Phone Andrew Novak APRN Primary Care Provider [phone]- [phone] Reason for Referral * Diagnostic Test (Routine) - Closed Specialty Diagnoses / Procedures Referred By Contac t Referred To Contact Cardiology Diagnoses Frequent falls NSTEMI (non-ST elevated myocardial infarction) Procedures Ziopatch 48 Hrs-15 Days Demetri Rivera PA [facility] [place] [address] [facility] [place] [address] Referral ID Status Reason Start Date Expiration Date V isits Requested Visits Authorized [id number] Closed Specialty Service Requested 06/09/2022 06/09/2023 1 1 Reason for Visit * Auth/Cert Specialty Diagnoses / Procedures Referred By Contac t Referred To Contact Diagnoses NSTEMI (non-ST elevated myocardial infarction) HTN emergency Sherita Rollins MD [facility] [place] [address] [facility] Referral ID Status Reason Start Date Expiration Date Visits Re quested Visits Authorized [id number] 1 1 Encounter Details Date Type Department Care Team (Latest Contact Info) Description 06/04/2022 5:23 PM EDT - 06/09/2022 1:20 PM EDT Hospital Encounter Intermediate Cardiac Care Unit [facility] [place] [id number] Sherita Rollins MD [facility] [address] [place] [id number] Non-ST elevation myocardial infarction (NSTEMI); Frequent falls; NSTEMI (non-ST elevated myocardial infarction); Hyperlipidemia, unspecified hyperlipidemia type Discharge Disposition: Home Social History Tobacco Use Types Packs/Day Years [...] Sign Reading Time Taken Comments Blood Pressure 152/44 06/09/2022 10:55 AM EDT Pulse 59 06/09/2022 5:53 AM EDT Temperature 36.7 ??C (98.1 ??F) 06/09/2022 10:55 AM E DT Respiratory Rate 16 06/09/2022 10:55 AM EDT Oxygen Saturation 96% 06/09/2022 10:55 AM EDT Inhaled Oxygen Concentration - - Weight 72.2 kg (159 lb 2.8 oz) 06/09/2022 5:05 A M EDT Height - - Body Mass Index 30.08 05/04/2022 8:52 AM EDT documented in this encounter Discharge Summaries * Demetri Rivera PA - 06/09/2022 1:20 PM EDT Discharge Summary Patient Name: Lemuel Amador Patient Age: 86 y.o. Language: Citizen Of [place] Race: White Ethnicity: Not nor Admit date: [...] 75% stenosis. Distal flow was via the [place] vessel and a bypass graft. Bypass Grafts: [...] radiculopathy and rightsided weakness who presented to [facility] after a fall at home. ?? As [...] going for her service next week in [place]. Also she doesn't have a PCP and hasn't seen her primary smelter operator Dr. Tilley in a couple of years. She lives alone, walks independently, had 3 daughter ( one just ) ?? Hospital Course: ?? #NSTEMI type II #Hx of ASCVD s/p CABG x 4 (DAUGHERTY to LAD, SVG to OM, SVG to Diag, ANTONIO to RCA) in 2014 #Hypertensive emergency: ??likely 2/2 medications non compliance [...] ??? Bacitracin ??? Gabapentin Other (See Comments) [place] like a zombie ??? Gramicidin D ??? Ibuprofen ??? Lidocaine ??? Neomycin Sulfate ??? Neosporin [Hydrocortisone] ??? Polymyxin B ??? Polymyxin B Sulfate ??? Abqrrre-Fdi-Jor Reductase Inhibitors Other (See Comments) Muscle soreness/weakness, fatigue ??? Sulfa (Sulfonamide Antibiotics) Immunizations Given this Hospitalization: Immunization History Administered Date(s) Administered ??? Influenza Vaccine, Whole 06/28/2005 ??? Moderna Covid-19 (Typesetting Machine Operator/Tender 100mcg) Vaccine 09/11/2020, 10/10/2020, 07/02/2021 ??? Td, [...] of 8A-5PM please call the Cardiology Clinic [phone] to speak with a nurse. All other hours please call the Hospital Senior Software Manager [phone] and ask to speak to the box inspector on-call. Driving: No driving for 48 hours after cath Follow up Appointments: Doctor Where Phone # Date Time PCP Andrew Novak APRN [address] [place] [address] 06/23/2022 2:20 PM Cardiology: Dr. Jung's colleague Manuela Valdovinos APRN [facility] Cardiology 4A Clinic [phone] 07/12/2022 10:40 AM General Instructions Wound Care [...] A referral can be made by calling [phone] or by placing an [facility] wound referral ([id number]) in the discharge navigator. Future Appointments and Orders Future Appointments and Orders Future Appointments Provider Department Dept Phone 07/12/2022 10:40 AM Manuela Valdovinos APRN Cardiology at [facility] Arrive at: Personal Injury Litigation Paralegal Area [phone] Future Orders Complete By Expires Ziopatch 48 Hrs-15 Days [[id number] CPT(R)] 06/09/2022 09/09/2022 Process Instructions: Scheduling Instructions: Questions: Does the patient have a pacemaker? If yes provide HI/LO settings: Apply for 7 or 14 days?: 14 Where will study be performed?: [facility] Clinics Discharge References/Attachments None Demetri Rivera PA-C [...] A referral can be made by calling [phone] or by placing an [facility] wound referral ([id number]) in the discharge navigator. * Patient Instructions* [...] of 8A-5PM please call the Cardiology Clinic [phone] to speak with a nurse. All other hours please call the Hospital Senior Software Manager [phone] and ask to speak to the box inspector on-call. Driving: No driving for 48 hours after cath Follow up Appointments: Doctor Where Phone # Date Time PCP Andrew Novak, STORE PROTECTION SPECIALIST [address] [place] [address] 06/23/2022 2:20 PM Cardiology: Dr. Jung's colleague Manuela Valdovinos APRN [facility] Cardiology 4A Clinic [phone] 07/12/2022 10:40 AM documented in this encounter [...] mg Tablet, SublingualIndications: Coronary artery disease involving [place] coronary artery, angina presence unspecified, unspecified whether [place] or transplanted heart Place 1 tablet under [...] cardiac rehab referral indicated. * Aquiles Lopez E - 06/09/2022 7:57 AM EDT Images from the original note were not included. Inpatient Cardiology Progress Note Patient Name: Lemuel Amador Service: MASTER OF CEREMONIES / PA Responsible Attending: Sherita Rollins MD [...] Judgment: Judgment normal. Lab Comments: Recent Labs 06/09/2234106/08/2234506/07/22 042 WBC 8.0 7.4 7.3 HGB 12.3 12.7 13.0 HCT 37.6 39.1 40.6 PLATELET 199 195 196 No results for input(s): INR in the last 168 hours. Recent Labs 06/09/2234106/08/2234506/07/22 0423 NA 141 139 139 K 3.7 3.7 3.8 CL 107 108* 108* CO2 BUN 24* 20* 21* CREATININE 0.71 0.74 0.76 No results for input(s): AST, ALT, ALKPHOS, BILITOT, BILIDIR in the last 168 hours. Recent Labs 06/09/22 0342 06/08/22 0346 06/07/22 0423 CALCIUM 8.7 8.9 8.8 No results for [...] and right sided weakness who presented to [facility] after multiple falls over the past months [...] Discussed with Sherita Rollins MD and DEBBY Stovall , STORE PROTECTION SPECIALIST-Mayur 06/09/2022 Pager: [phone] Associated attestation - Sherita Rollins MD - [...] Progress Note Patient Name: Lemuel Amador Service: MASTER OF CEREMONIES / PA Responsible Attending: Sherita Rollins MD Reason for continued hospitalization: Evaluation and management of hypertensive crisis Chest pain s/p abnormal NST 06/07 Awaiting [facility] Active Problems: Active Hospital Problems Diagnosis ??? NSTEMI (non-ST elevated myocardial infarction) ??? Wound of left leg ??? Hypertensive emergency ??? Frequent falls Resolved Hospital Problems No resolved problems to display. Interval History: No acute events overnight. Had NST yesterday morning that showed lateral wall ischemia. Plan for [facility] today. Review of Systems: Review of [...] in the last 168 hours. Recent Labs 06/08/22 0346 06/07/22 0423 06/06/22 0419 CALCIUM 8.9 8.8 9.0 No results for [...] and right sided weakness who presented to [facility] after multiple falls over the past months [...] 06/07/2022 w/ lateral wall ischemia. NPO for C today Plan: #NSTEMI type I vs type [...] discharge NST 06/07 abnormal - NPO for [facility] today ?? #Hypertensive emergency: likely 2/2 [...] with MD Demetri Silva PA 06/08/2022 Pager: [phone] Associated attestation - Sherita Rollins MD - 06/08/2022 4:34 PM EDT Feeling well this morning Able to ambulate to bathroom with a walker without problem Nuclear MPI images reviewed: moderate sized lateral wall perfusion abn Await for [facility] today ZioPatch on discharge * Cecy Regalado, OT - 06/07/2022 3:37 PM EDT 06/07/22 1535 Evaluation & Treatment Document Type contact Total [...] to consult but patient was sound asleep Quality Improvement Manager Encounter Note Patient Name: Lemuel Amador : [id number] MR#: [id number] Admit Date: 06/04/2022 5:23 PM Hospital Day [...] appeared comfortable sleeping. Follow-up: Will ask unit advertising internship to follow up on Tuesday Time in Direct Care: 15 minutes Cheryl You 06/07/2022 * Cynthia Cook PT - 06/07/2022 11:44 AM EDT Physical Therapy Evaluation Patient profile: Lemuel Amador is a 86 y.o. female with PMH of ASCVD s/p CABG x 4 in 09/2014 ( LIMAto LAD, SVG to OM, SVG to diag, ANTONIO to RCA), HTN, prediabetes, asthma, cervical myelopathy, radiculopathy and right sided weakness who presented to [facility] after a fall at home. Patient with [...] GRAFTS performed by Tavon Alves MD at [facility] MAIN OR ??? PRO CABG, ARTERY-VEIN, TWO N/A 07/24/2015 @CABG, TWO VENOUS GRAFTS & ARTERIAL GRAFT performed by Tavon Alves MD at [facility] MAIN OR ??? PRO ENDOSCOPY W/VIDEO-ASST VEIN HARVEST, CABG N/A 07/24/2015 ENDOSCOPIC HARVEST VEIN(S) FOR CABG performed by Tavon Alves MD at [facility] MAIN OR ??? TONSILLECTOMY Active Non-Hospital Problems [...] with ADLs and IADLs. 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 4. Pt. to demonstrate no whtblt-ot-opluxvt during dynamic activities Plan: Therapy Frequency (PT): [...] in this evaluation. Time IN / OUT: 3902-1264 Total Minutes, Physical Therapy: 27 Cynthia Cook DPT Pager: [phone] Physical Therapy Inpatient Rehabilitation Department * Demetri Rivera PA - 06/07/2022 8:16 AM EDT Images from the original note were not included. Inpatient Cardiology Progress Note Patient Name: Lemuel Amador Service: MASTER OF CEREMONIES / PA Responsible Attending: Sherita Rollins MD [...] that showed lateral wall ischemia. Plan for [facility] tomorrow. Review of Systems: Review of [...] 3.3* CL 108* 108* 107 CO2 23 23 BUN 21* 16 12 CREATININE 0.76 [...] and right sided weakness who presented to [facility] after multiple falls over the past months [...] 06/07/2022 w/ lateral wall ischemia. NPO at [place] for [facility] tomorrow. #NSTEMI: Likely type II in [...] - NST 06/07 abnormal - NPO at [place] for [facility] tomorrow ? #Hypertensive emergency: likely 2/2 [...] prophylaxis- Ambulate; fully ambulatory Discussed with MD Demetri Silva PA 06/07/2022 Pager: [phone] * Aquiles Lopez E - 06/06/2022 12:34 PM EDT Images from the original note were not included. Inpatient Cardiology Progress Note Patient Name: Lemuel Amador Service: MASTER OF CEREMONIES / PA Responsible Attending: Sherita Rollins MD [...] Judgment: Judgment normal. Lab Comments: Recent Labs 06/06/2241806/05/22 0043 06/04/22 2122 WBC 7.2 7.3 8.1 HGB 12.8 12.9 13.2 HCT 39.3 39.6 41.0 PLATELET 194 177 184 No results for input(s): INR in the last 168 hours. Recent Labs 06/06/2241806/05/22 0043 06/04/22 1831 NA 140 141 141 K 3.8 3.3* 3.8 CL 108* 107 106 CO2 23 23 24 BUN 16 12 13 CREATININE 0.77 0.80 0.75 No results for input(s): AST, ALT, ALKPHOS, BILITOT, BILIDIR in the last 168 hours. Recent Labs 06/06/22 0419 06/05/22 0043 06/04/22 1831 CALCIUM 9.0 8.7 8.8 No [...] and right sided weakness who presented to [facility] after multiple falls over the past months [...] from prior TTE in 2019. Will consider nuclear stress test tomorrow and [...] and VANCE Wilks APRN-S 06/06/2022 APP1 pager# [phone] Associated attestation - Sherita Rollins MD - [...] Progress Note Patient Name: Lemuel Amador Service: MASTER OF CEREMONIES / PA Responsible Attending: Sherita Rollins MD [...] Judgment: Judgment normal. Lab Comments: Recent Labs 06/05/224206/04/22212106/04/22 1831 WBC 7.3 8.1 8.8 HGB 12.9 13.2 13.5 HCT 39.6 41.0 41.8 PLATELET 177 184 204 No results for input(s): INR in the last 168 hours. Recent Labs 06/05/223 06/04/22 1831 NA 141 141 K 3.3* 3.8 CL 107 106 CO2 23 24 BUN 12 13 CREATININE 0.80 0.75 No results for input(s): AST, ALT, ALKPHOS, BILITOT, BILIDIR in the last 168 hours. Recent Labs 06/05/224206/04/22 1831 CALCIUM 8.7 8.8 No results for input(s): [...] and right sided weakness who presented to [facility] after multiple falls over the past months [...] 2014 -Admit to cardiology -Monitor on Tele - [...] and VANCE Wilks APRN-S 06/05/2022 APP1 pager# [phone] Associated attestation - Sherita Rollins MD - [...] Presenting Diagnosis/Chief Complaint: NSTEMI/Hypertensive emergency. Transferred from [facility] for further management. History of Present Illness: Lemuel Amador is a 86 y.o. female with PMH of ASCVD s/p CABG x 4 in 09/2014 ( DAUGHERTY to LAD, SVG to OM, SVG to diag, ANTONIO to RCA), HTN, prediabetes, asthma, cervical myelopathy, radiculopathy and rightsided weakness who presented to [facility] after a fall at home. As per [...] going for her service next week in [place]. Also she doesn't have a PCP and hasn't seen her primary smelter operator Dr. Tilley in a couple of years. [...] GRAFTS performed by Tavon Alves MD at [facility] MAIN OR ??? PRO CABG, ARTERY-VEIN, TWO N/A 07/24/2015 @CABG, TWO VENOUS GRAFTS & ARTERIAL GRAFT performed by Tavon Alves MD at [facility] MAIN OR ??? PRO ENDOSCOPY W/VIDEO-ASST VEIN HARVEST, CABG N/A 07/24/2015 ENDOSCOPIC HARVEST VEIN(S) FOR CABG performed by Tavon Alves MD at [facility] MAIN OR ??? TONSILLECTOMY Significant Family History: Family [...] boys. 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 She enjoys the bed and breakfast, [place],reading. 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 Neuro/MERCHANT PATROLLER: AAO x 3, strenght 4/5 in RUE, [...] radiculopathy and rightsided weakness who presented to [facility] after a fall at home likely mechanical [...] 2015 -Admit to cardiology -Monitor on Tele -Serial [...] drip Rito Brooks MD 06/05/2022 Pager # [phone] documented in this encounter Miscellaneous Notes * Plan of Care - Valentina Arguelles RN - 06/09/2022 1:20 PM EDT Patient VSS, alert and oriented. AVS reviewed with patient. Patient verbalized understanding and all questions answered. IV removed per protocol, site CDI, dressing applied to site. Patient verbalized they had all belongings, brought down by [employer] [facility], daughter arriving for patient pickup to go [...] achieved * Plan of Care - Deanna Westfall RN - 06/09/2022 6:49 AM EDT OUTCOME [...] Chest pain s/p abnormal NST 06/07 Awaiting [facility] Reason for Hospitalization per H&P or ID: 86 y.o.??female??with PMH of ASCVD s/p CABG x 4 in 09/2014 ( DAUGHERTY to LAD, SVG to OM, SVG to diag, ANTONIO to RCA), HTN, prediabetes, asthma, cervical myelopathy, radiculopathy and right sided weakness??who presented to [facility] after a fall at home. 24 hour events/ Interval hx per team: No acute events overnight. Had NST yesterday morning that showed lateral wall ischemia. Plan for [facility] today. Decision Maker: Self Functional status [...] cane. IND with ADLs and IADLs. 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 [...] care CM Interventions: CM given updates by MD in the am during IDRS on current [...] of Discharge: 06/09/2022 Torsten Jain RN Case Airway Traffic Controller of Care Management Pager: [phone] * Plan of Care - Deanna Westfall [...] Plan of Care Review 06/08/2022116 by Deanna Westfall RN Outcome: Ongoing [...] Ongoing (Interventions Implemented as Appropriate) 06/08/2022116 by Daenna Westfall RN Outcome: Ongoing (Interventions Implemented as [...] (Interventions Implemented as Appropriate) 06/08/2022116 by Deanna Westafll RN Outcome: Ongoing (Interventions Implemented as Appropriate) [...] RN Outcome: Ongoing (Interventions Implemented as Appropriate) 06/08/2022 0117 by Deanna Westfall RN Outcome: Ongoing (Interventions [...] for further details. WILBERT Stovall 06/07/2022 Pager [phone] * Consult Note - Kimber Del Castillo [...] radiculopathy and right sided weakness??who presented to [facility] after multiple falls over the past months [...] from prior TTE in 2018. Will consider nuclearstress test tomorrow and Zio [...] Sites: IV sites, ECG Leads Other Sites: (kevin has wound) Existing Wounds: Wound 06/06/22 0800 [...] Assistance: none Intake (%): 100% Current bed: [facility] Assessment: Chronic wound, traumatic injury per patient. Therahoney applied to promote autolytic debridement. Wound Care Recommendations: ABIs The patient will benefit from follow up in the [facility] or Wound Care closer to her home. A referral can be made by calling [phone] or by placing an [facility] wound referral([id number]) in the discharge navigator. RLE: Therahoney Gel [...] follow weekly Discussed plan with: /SANJUANA/PA: Nicole OG: Shamika Please contact Kimber Del Castillo RN on pager [phone] or the wound care team at [phone] or pager [phone] skin and wound care concerns or questions. [...] face even was asked not to by MASTER OF CEREMONIES. Pt is npo after [place] for stress [...] surrogate would be surrogate decision maker per [place] surrogate decision making law. (Only good for 180 days) Any patient receiving care in [place] must abide by [place] law. The hierarchy for surrogate decision making [...] (i) The agent with financial power of united states attorney or a conservator appointed in accordance [...] Environmental Concerns: Resource/Environmental Concerns: none Current DME: [employer] Home Address confirmed as: [address] [facility] [address] Social & Family Supports: All names listed below confirmed with patient as current and correct Extended Emergency Contact Information Primary Emergency Contact: Nallely Amador [facility] Relation: Child Current Care Provided by: self [...] Type: *No Product type* / Secondary Insurance: AAR SUPPLEMENT Secondary Insurance? (Only Medicare A&B): Yes ; Prescription Coverage: Yes Preferred Pharmacy: [facility] - [facility], [place] - [address] [facility] [address] [id number] [place], [place] [facility] [address] [address] [place] [address] [facility] [place], [place] - [address] [facility] [address] [facility] - [place], [place] - [address] [facility] [address] [facility] [address] - [place], [place] - [address] [facility] [address] Status: Patient is a : Primary Care Provider: Jacob Foley DO [phone] Patient/Caregiver Goals of Treatment: To go to her oldest daughter Potential Needs for Transition of Care: none Agency Referrals: Not Applicable Transportation: no concerns Transportation Anticipated: family or friend will provide Concerns to be Addressed: denies needs/concerns at this time Assessment: Patient is admitted to [facility] for syncope Plan: nuclear stress test tomorrow and Zio patch for arrhyhtmia monitoring given recent falls from unknown etiologies. A member of the Care Management team will continue to monitor progress, follow for continuity of care and assist with transition of care planning. Gorge Castrejon SAMPLING THEORY TEACHER CCM * Plan of Care - Rito [...] further details. Rito Brooks MD 06/04/2022 Pager [phone] documented in this encounter Plan of Treatment Not on file documented as of this encounter Goals Goal Patient Goal Type Associated Problems Recent Progress Patient-Stated? Author LDL CALC < 70 Result Component No Michael Mckinnon [facility] documented as of this encounter Procedures Procedure Name Priority Date/Time Associated Diagnosis Comments HC VENIPUNCTURE Routine 06/09/2022 3:42 AM EDT HEMOGRAM Routine 06/09/2022 3:42 AM EDT DIFFERENTIAL, AUTOMATED Routine 06/09/20 3:42 AM EDT HC CBC,PLT & AUTO DIFF Routine 2 3:42 AM EDT CARDIAC CATHETERIZATION Routine 06/08/20 [...] Modality Other Narrative 06/24/2022 3:30 PM EST [facility] ? Zio Patch? Ambulatory Cardiac Event Monitor [...] * Differential, Automated (06/09/2022 3:42 AM EDT) [facility] Neutrophil % 71.1 % [facility] Neutrophil Absolute 5.73 1.70 - 6.10 x10(3)/[facility] Lymph % 17.6 % [facility] Lymphocytes Abs 1.4 0.9 - 3.2 x10(3)/[facility] Monocyte % 7.5 % [facility] Monocyte Abs 0.6 0.3 - 0.9 x10(3)/[facility] Eos % 3.0 % [facility] Eosinophils Abs 0.2 0.0 - 0.4 x10(3)/[facility] Basophil % 0.4 % [facility] Baso Absolute 0.0 0.0 - 0.1 x10(3)/[facility] Immature Gran % 0.40 % [facility] Comment: Immature granulocytes(IG's)percentage and absolute count will include metamyelocytes, myelocytes, and promyelocytes. Blood smears from CBCs yielding IG's will be scanned manually for concordance. If this scan disagrees with the automated IG or if promyelocytes are noted, a manual differential will be performed. Immature Gran Absolute 0.03 0.00 - 0.04 x10(3)/[facility] LAB[facility] Blood 06/09/2022 3:42 AM EDT 06/09/2022 4:26 AM EDT Narrative Resulting Agency Comment Spec In Lab Rito Brooks MD HEMATOLOGY ORDERABLE S [facility] [place] [place] [address] * (ABNORMAL) Hemogram (06/09/2022 3:42 AM EDT) [facility] White Blood Cell 8.0 4.0 - 9.5 x10(3)/[facility] LAB[facility] Red Blood Cell 4.55 4.00 - 5.21 x10(6)/[facility] Hemoglobin 12.3 11.7 - 15.5 g/dL [facility] Hematocrit 37.6 35.7 - 45.8 % [facility] Mean Cell Volume 82.6 82.6 - 94.4 fL [facility] Mean Cell Hemoglobin 27.0(L) 27.1 - 32.0 pg [facility] Mean Cell Hemoglobin Concentration 32.7 31.7 - 35.0 g/dL [facility] Platelet 199 145 - 357 x10(3)/[facility] RDW Standard Deviation 44.0 37.0 - 46.0 [facility] RDW coefficient of variation 14.5(H) 11.5 - 14.1 % [facility] Mean Platelet Volume 10.5 7.6 - 12.9 [facility] NRBC% auto 0.0 % [facility] NRBC Absolute 0.000 0.000 - 0.000 x10(3)/[facility] Blood 06/09/2022 3:42 AM EDT 06/09/2022 4:26 AM EDT Narrative Resulting Agency Comment Spec In Lab Rito Brooks MD HEMATOLOGY ORDERABLE S [facility] [place] [address] * (ABNORMAL) BMP w/fasting Glucose (06/09/2022 3:42 AM EDT) Glucose Fasting 121(H) 65 - 99 mg/dL [facility] Comment: ?Fasting* Glucose Interpretive Criteria [...] of Diabetes Mellitus, Position Statement from the [place]. ??Diabetes Care, Volume 33, Supplement 1, Aug 2009 Blood Urea Nitrogen 24(H) 8 - 18 mg/dL [facility] Creatinine 0.71 0.70 - 1.20 mg/dL [facility] Sodium 141 135 - 145 mmol/L [facility] Potassium 3.7 3.5 - 5.0 mmol/L [facility] Comment: Please note: ??Patients with WBC >100,000 may have falsely elevated Potassium levels. ??For accurate Potassium quantification in these patients send serum separator tube (gold top) for subsequent determinations. ??Contact the Clinical Chemistry Laboratory if there are any questions. Chloride 107 98 - 107 mmol/L [facility] Carbon Dioxide 22 22 - 31 mmol/L [facility] Anion Gap 12 5 - 15 mmol/L [facility] Calcium 8.7 8.5 - 10.5 mg/dL [facility] Est Glomerular Filtration Rate 84 >=60 mL/min/1. 73 m?? [facility] Comment: This patient's estimated GFR [...] In Lab Rito Brooks MD CHEMISTRY ORDERABLES [facility] [place] [address] * CARDIAC CATHETERIZATION (06/08/2022 4:44 PM EDT) Anatomical Region Laterality Modality Other Narrative 06/08/2022 4:52 PM EDT ?[facility] ? Cardiac Catheterization/Intervention Report ? Patient Name: Warnaar, Lemuel ??L. ? Procedure Date: 06/08/2022 ? A #: [id number] ? Primary Physician: Sara, Doug T ? Case #: [id number] ? File Name: [id number] ? Catheterization Order Number: [id number] ? [facility] ? Final Report [place], [place] ? Patient Name: ? Lemuel ??L. Warnaar ? ID#: ?[id number] ? : ?1935 ? Procedure Date: ? June 08, 2022 ? Case #: ? [id number] ? Room: ? 1 ? Case Physician: ? Doug T Sara, M.D. ?Start: ?15:58 ? Admission: ??06/04/2022 ? [...] was designated as ASA Class ?III. The [facility] clinical frailty scale is 4: Vulnerable. ? Diagnostic Tests: ?Prior Coronary Angiography: ? LV ejection fraction within 6 months is 65%. ?Medications Prior to Procedure: ? Aspirin. ? Indications for Diagnostic Cath: ?The priority of the diagnostic procedure was Urgent. The indication for ?the labeling machine operator visit is ACS greater than 24 hrs. [...] stenosis. ??Distal flow was via the ? [place] vessel and a bypass graft. ? Bypass [...] and bilateral renal angiography- selective. ? Doug Mccainries, M.D. ? Electronically Signed by: Doug Chapin Sara, M.D. ? Report Finalized: 06/08/2022 ??16:48 ? Doug Ruiz MD CARDIAC CATH ORDERAB LES * Differential, Automated (06/08/2022 3:46 AM EDT) Neutrophil % 70.8 % [facility] Neutrophil Absolute 5.27 1.70 - 6.10 x10(3)/[facility] Lymph % 19.8 % [facility] Lymphocytes Abs 1.5 0.9 - 3.2 x10(3)/[facility] Monocyte % 5.5 % [facility] Monocyte Abs 0.4 0.3 - 0.9 x10(3)/[facility] Eos % 3.1 % [facility] Eosinophils Abs 0.2 0.0 - 0.4 x10(3)/[facility] Basophil % 0.4 % [facility] Baso Absolute 0.0 0.0 - 0.1 x10(3)/[facility] Immature Gran % 0.40 % [facility] Comment: Immature granulocytes(IG's)percentage and absolute count will include metamyelocytes, myelocytes, and promyelocytes. Blood smears from CBCs yielding IG's will be scanned manually for concordance. If this scan disagrees with the automated IG or if promyelocytes are noted, a manual differential will be performed. Immature Gran Absolute 0.03 0.00 - 0.04 x10(3)/[facility] Blood 06/08/2022 3:46 AM EDT 06/08/2022 3:53 AM EDT Narrative Resulting Agency Comment Spec In Lab Rito Brooks MD HEMATOLOGY ORDERABLE S [facility] [place] [address] * (ABNORMAL) Hemogram (06/08/2022 3:46 AM EDT) White Blood Cell 7.4 4.0 - 9.5 x10(3)/ L [facility] Red Blood Cell 4.72 4.00 - 5.21 x10(6)/ L [facility] Hemoglobin 12.7 11.7 - 15.5 g/dL [facility] Hematocrit 39.1 35.7 - 45.8 % [facility] Mean Cell Volume 82.8 82.6 - 94.4 fL [facility] Mean Cell Hemoglobin 26.9(L) 27.1 - 32.0 pg [facility] Mean Cell Hemoglobin Concentration 32.5 31.7 - 35.0 g/dL [facility] Platelet 195 145 - 357 x10(3)/[facility] LABORATORY RDW Standard Deviation 43.8 37.0 - 46.0 fL [facility] RDW coefficient of variation 14.5(H) 11.5 - 14.1 % [facility] Mean Platelet Volume 10.7 7.6 - 12.9 fL [facility] NRBC% auto 0.0 % [facility] NRBC Absolute 0.000 0.000 - 0.000 x10(3)/[facility] Blood 06/08/2022 3:46 AM EDT 06/08/2022 3:53 AM EDT Narrative Resulting Agency Comment Spec In Lab Rito Brooks MD HEMATOLOGY ORDERABLE S [facility] [place] [address] * (ABNORMAL) BMP w/fasting Glucose (06/08/2022 3:46 AM EDT) Glucose Fasting 106(H) 65 - 99 mg/dL [facility] Comment: ?Fasting* Glucose Interpretive Criteria [...] of Diabetes Mellitus, Position Statement from the [place] [employer]. ??Diabetes Care, Volume 33, Supplement 1, Aug 2009 Blood Urea Nitrogen 20(H) 8 - 18 mg/dL [facility] Creatinine 0.74 0.70 - 1.20 mg/dL [facility] Sodium 139 135 - 145 mmol/L [facility] Potassium 3.7 3.5 - 5.0 mmol/L [facility] Comment: Please note: ??Patients with WBC >100,000 may have falsely elevated Potassium levels. ??For accurate Potassium quantification in these patients send serum separator tube (gold top) for subsequent determinations. ??Contact the Clinical Chemistry Laboratory if there are any questions. Chloride 108(H) 98 - 107 mmol/L [facility] Carbon Dioxide 22 22 - 31 mmol/L [facility] Anion Gap 9 5 - 15 mmol/L [facility] Calcium 8.9 8.5 - 10.5 mg/dL [facility] Est Glomerular Filtration Rate 80 >=60 mL/min/1. 73 m?? [facility] Comment: This patient's estimated GFR [...] Brooks MD CHEMISTRY ORDERABLES Performing Organization Address [facility]/State/[facility] Co de Phone Number [facility] [place] [address] * Nuclear Pharmacologic Stress Cardiology (06/07/2022 9:20 [...] who have questions please contact the health managed care coordinator that requested your imaging first. ? Electronically signed by: Gregor Palacios MD, [facility] ([phone]), at 06/07/2022 12:52 PM Procedure Note Gregor [...] patients who have questions please contactthe health managed care coordinator that requested your imaging first. Electronically signed by: Gregor Palacios MD, [facility]([phone]), at 06/07/2022 12:52 PM Cecy Munguia APRN IMG NM ORDERABLES * NM Pharmacologic Stress and [...] who have questions please contact the health managed care coordinator that requested your imaging first. ? Electronically signed by: Morgan Shaikh MD, [facility] ([phone]), at 06/07/2022 11:55 AM Narrative 06/07/2022 11:55 AM EDT EXAMINATION: NM [...] patients who have questions please contactthe health managed care coordinator that requested your imaging first. Cecy Munguia STORE PROTECTION SPECIALIST IMG NM ORDERABLES * Differential, Automated (06/07/2022 4:23 AM EDT) Neutrophil % 67.3 % [facility] Neutrophil Absolute 4.93 1.70 - 6.10 x10(3)/[facility] LAB[facility] Lymph % 22.1 % [facility] Lymphocytes Abs 1.6 0.9 - 3.2 x10(3)/[facility] Monocyte % 6.8 % [facility] Monocyte Abs 0.5 0.3 - 0.9 x10(3)/[facility] Eos % 3.3 % [facility] Eosinophils Abs 0.2 0.0 - 0.4 x10(3)/[facility] Basophil % 0.4 % [facility] Baso Absolute 0.0 0.0 - 0.1 x10(3)/[facility] Immature Gran % 0.10 % [facility] Comment: Immature granulocytes(IG's)percentage and absolute count will include metamyelocytes, myelocytes, and promyelocytes. Blood smears from CBCs yielding IG's will be scanned manually for concordance. If this scan disagrees with the automated IG or if promyelocytes are noted, a manual differential will be performed. Immature Gran Absolute 0.01 0.00 - 0.04 x10(3)/[facility] Blood 06/07/2022 4:23 AM EDT 06/07/2022 4:42 AM EDT Narrative Resulting Agency Comment Spec In Lab Rito Brooks MD HEMATOLOGY ORDERABLE S [facility] [place] [address] * (ABNORMAL) Hemogram (06/07/2022 4:23 AM EDT) White Blood Cell 7.3 4.0 - 9.5 x10(3)/mc L [facility] Red Blood Cell 4.89 4.00 - 5.21 x10(6)/mc L [facility] Hemoglobin 13.0 11.7 - 15.5 g/dL [facility] Hematocrit 40.6 35.7 - 45.8 % [facility] Mean Cell Volume 83.0 82.6 - 94.4 fL [facility] Mean Cell Hemoglobin 26.6(L) 27.1 - 32.0 pg [facility] Mean Cell Hemoglobin Concentration 32.0 31.7 - 35.0 g/dL [facility] Platelet 196 145 - 357 x10(3)/mc L [facility] RDW Standard Deviation 44.1 37.0 - 46.0 fL [facility] RDW coefficient of variation 14.6(H) 11.5 - 14.1 % [facility] Mean Platelet Volume 10.9 7.6 - 12.9 fL [facility] NRBC% auto 0.0 % [facility] NRBC Absolute 0.000 0.000 - 0.000 x10(3)/mc L [facility] Blood 06/07/2022 4:23 AM EDT 06/07/2022 4:42 AM EDT Narrative Resulting Agency Comment Spec In Lab Rito Brooks MD HEMATOLOGY ORDERABLE S [facility] [place] [address] * (ABNORMAL) BMP w/fasting Glucose (06/07/2022 4:23 AM EDT) [facility] Signature Glucose Fasting 113(H) 65 - 99 mg/dL [facility] Comment: ?Fasting* Glucose Interpretive Criteria [...] of Diabetes Mellitus, Position Statement from the [place] [employer]. ??Diabetes Care, Volume 33, Supplement 1, Aug 2009 Blood Urea Nitrogen 21(H) 8 - 18 mg/dL [facility] Creatinine 0.76 0.70 - 1.20 mg/dL [facility] Sodium 139 135 - 145 mmol/L [facility] Potassium 3.8 3.5 - 5.0 mmol/L [facility] Comment: Please note: ??Patients with WBC >100,000 may have falsely elevated Potassium levels. ??For accurate Potassium quantification in these patients send serum separator tube (gold top) for subsequent determinations. ??Contact the Clinical Chemistry Laboratory if there are any questions. Chloride 108(H) 98 - 107 mmol/L [facility] Carbon Dioxide 22 22 - 31 mmol/L [facility] Anion Gap 9 5 - 15 mmol/L [facility] Calcium 8.8 8.5 - 10.5 mg/dL [facility] Est Glomerular Filtration Rate 77 >=60 mL/min/1. 73 m?? [facility] Comment: This patient's estimated GFR [...] In Lab Rito Brooks MD CHEMISTRY ORDERABLES [facility] [place] [address] * Differential, Automated (06/06/2022 4:19 AM EDT) Neutrophil % 67.9 % [facility] Neutrophil Absolute 4.88 1.70 - 6.10 x10(3)/[facility] Lymph % 21.8 % [facility] Lymphocytes Abs 1.6 0.9 - 3.2 x10(3)/[facility] Monocyte % 6.7 % [facility] Monocyte Abs 0.5 0.3 - 0.9 x10(3)/[facility] Eos % 2.9 % [facility] Eosinophils Abs 0.2 0.0 - 0.4 x10(3)/[facility] Basophil % 0.4 % [facility] Baso Absolute 0.0 0.0 - 0.1 x10(3)/[facility] Immature Gran % 0.30 % [facility] Comment: Immature granulocytes(IG's)percentage and absolute count will include metamyelocytes, myelocytes, and promyelocytes. Blood smears from CBCs yielding IG's will be scanned manually for concordance. If this scan disagrees with the automated IG or if promyelocytes are noted, a manual differential will be performed. Immature Gran Absolute 0.02 0.00 - 0.04 x10(3)/mcL [facility] Blood 06/06/2022 4:19 AM EDT 06/06/2022 4:29 AM EDT Narrative Resulting Agency Comment Spec In Lab Rito Brooks MD HEMATOLOGY ORDERABLE S [facility] [place] [address] * (ABNORMAL) Hemogram (06/06/2022 4:19 AM EDT) White Blood Cell 7.2 4.0 - 9.5 x10(3)/ L [facility] Red Blood Cell 4.74 4.00 - 5.21 x10(6)/mc L [facility] Hemoglobin 12.8 11.7 - 15.5 g/dL [facility] Hematocrit 39.3 35.7 - 45.8 % [facility] Mean Cell Volume 82.9 82.6 - 94.4 fL [facility] Mean Cell Hemoglobin 27.0(L) 27.1 - 32.0 pg [facility] Mean Cell Hemoglobin Concentration 32.6 31.7 - 35.0 g/dL [facility] Platelet 194 145 - 357 x10(3)/[facility] LABORATORY RDW Standard Deviation 44.9 37.0 - 46.0 [facility] LAB[facility]ATORY RDW coefficient of variation 14.7(H) 11.5 - 14.1 % [facility] Mean Platelet Volume 10.1 7.6 - 12.9 fL [facility] NRBC% auto 0.0 % [facility] NRBC Absolute 0.000 0.000 - 0.000 x10(3)/ L [facility] Blood 06/06/2022 4:19 AM EDT 06/06/2022 4:29 AM EDT Narrative Resulting Agency Comment Spec In Lab Rito Brooks MD HEMATOLOGY ORDERABLE S [facility] [place] [address] * (ABNORMAL) BMP w/fasting Glucose (06/06/2022 4:19 AM EDT) Glucose Fasting 115(H) 65 - 99 mg/dL [facility] Comment: ?Fasting* Glucose Interpretive Criteria [...] of Diabetes Mellitus, Position Statement from the [place] [employer]. ??Diabetes Care, Volume 33, Supplement 1, Aug 2009 Blood Urea Nitrogen 16 8 - 18 mg/dL [facility] Creatinine 0.77 0.70 - 1.20 mg/dL [facility] Sodium 140 135 - 145 mmol/L [facility] Potassium 3.8 3.5 - 5.0 mmol/L [facility] Comment: Please note: ??Patients with WBC >100,000 may have falsely elevated Potassium levels. ??For accurate Potassium quantification in these patients send serum separator tube (gold top) for subsequent determinations. ??Contact the Clinical Chemistry Laboratory if there are any questions. Chloride 108(H) 98 - 107 mmol/L [facility] Carbon Dioxide 23 22 - 31 mmol/L [facility] Anion Gap 9 5 - 15 mmol/L [facility] Calcium 9.0 8.5 - 10.5 mg/dL [facility] Est Glomerular Filtration Rate 76 >=60 mL/min/1. 73 m?? [facility] Comment: This patient's estimated GFR [...] In Lab Rito Brooks MD CHEMISTRY ORDERABLES [facility] [place] [address] * ECHO COMPLETE (06/05/2022 12:40 PM EDT) EF 69 HEARTLAB SYSTEM Anatomical Region Laterality Modality Cardiac Other 06/05/2022 11:1 9 AM EDT Narrative 06/05/2022 3:17 PM EDT ? Echocardiogram Report Name: LEMUEL AMADOR ? Study Date: 06/05/2022 11:19 AMBP: 160/48 mmHg ? [facility] HR: 58 : 1935 ? Height: 155 cm ? Account: [id number] Age: 86 yrs ? Weight: 73 kg Gender: Female ?BSA: 1.7 m2 Ordering Physician: RITO BROOKS Referring Physician: JEFFREY UREÑA Performed By: Mian Gonzalez RDCS Reason For Study: NSTEMI Exam Location: [facility]. Interpretation Summary Biventricular function is normal with LVEF of 69% by Sanchez's biplane and no wall motion abnormalities. LV filling pressure is elevated. PASP 36 mm Hg (assuming RA pressure 8 mm Hg). The left atrium is moderately dilated. The right atrium is normal. There is no hemodynamically significant valvular disease present. Compared to prior echo 12/19/2018, no significant changes have occured. Procedure Complete-09046. Satisfactory quality. There is normal sinus rhythm. [...] Date: :19 AMBP: 160/48 mmHg Patient Location: [place] [address] A HR: 58 : 1935 Height: 155 cm Account: [id number] Age: 86 yrs Weight: 73 kg Gender: Female BSA: 1.7 m2 Ordering Physician: RITO BROOKS Referring Physician: JEFFREY UREÑA Performed By: Mian Gonzalez RDCS Reason For Study: NSTEMI Exam Location: [facility]. Interpretation Summary Biventricular function is normal with LVEF of 69% by Sanchez's biplane andno wall motion abnormalities. LV filling pressure is elevated. PASP 36 mm Hg(assuming RA pressure 8 mm Hg). The left atrium is moderately dilated. The right atrium is normal. There is no hemodynamically significant valvular disease present. Compared to prior echo 12/19/2018, no significant changes have occured. Procedure Complete-02403. Satisfactory quality. There is normal sinus rhythm. [...] (Bezet) 436 ms MUSE SYSTEM Calculated P [place] 72 degrees MUSE SYSTEM Calculated R [place] -56 degrees MUSE SYSTEM Calculated T [place] 112 degrees MUSE SYSTEM INTERPRETATION Sinus rhythm [...] * (ABNORMAL) Troponin (06/05/2022 4:03 AM EDT) [facility] Troponin-T, High Sensitivity 28(H) <=14 ng/L [facility] Comment: This patient's troponin T [...] troponin value can be found in the [facility] Laboratory Test Catalog Troponin - Count Includes The [facility] Laboratory Test Catalog Reference: Fourth [place] Definition of Myocardial Infarction. Journal of the [place] [employer] 2018;72:1840-6946 Blood 06/05/2022 4:03 AM EDT 06/05/2022 5:19 AM EDT Narrative Resulting Agency Comment Spec In Lab Rito Brooks MD CHEMISTRY ORDERABLES [facility] [place] [address] * Differential, Automated (06/05/2022 12:43 AM EDT) [facility] Neutrophil % 66.7 % [facility] Neutrophil Absolute 4.89 1.70 - 6.10 x10(3)/[facility] LAB[facility] Lymph % 23.6 % [facility] Lymphocytes Abs 1.7 0.9 - 3.2 x10(3)/[facility] Monocyte % 5.6 % [facility] Monocyte Abs 0.4 0.3 - 0.9 x10(3)/[facility] LAB[facility] Eos % 3.4 % [facility] Eosinophils Abs 0.2 0.0 - 0.4 x10(3)/[facility] Basophil % 0.4 % [facility] Baso Absolute 0.0 0.0 - 0.1 x10(3)/[facility] Immature Gran % 0.30 % [facility] Comment: Immature granulocytes(IG's)percentage and absolute count will include metamyelocytes, myelocytes, and promyelocytes. Blood smears from CBCs yielding IG's will be scanned manually for concordance. If this scan disagrees with the automated IG or if promyelocytes are noted, a manual differential will be performed. Immature Gran Absolute 0.02 0.00 - 0.04 x10(3)/[facility] Blood 06/05/2022 12:4 3 AM EDT 06/05/2022 12:56 AM EDT Narrative Resulting Agency Comment Spec In Lab Rito Brooks MD HEMATOLOGY ORDERABLE S [facility] [place] [address] * (ABNORMAL) Hemogram (06/05/2022 12:43 AM EDT) White Blood Cell 7.3 4.0 - 9.5 x10(3)/ L [facility] Red Blood Cell 4.81 4.00 - 5.21 x10(6)/[facility] LABORATORY Hemoglobin 12.9 11.7 - 15.5 g/dL [facility] Hematocrit 39.6 35.7 - 45.8 % [facility] Mean Cell Volume 82.3(L) 82.6 - 94.4 fL [facility] Mean Cell Hemoglobin 26.8(L) 27.1 - 32.0 pg [facility] Mean Cell Hemoglobin Concentration 32.6 31.7 - 35.0 g/dL [facility] Platelet 177 145 - 357 x10(3)/mc L [facility] RDW Standard Deviation 43.0 37.0 - 46.0 fL [facility] RDW coefficient of variation 14.4(H) 11.5 - 14.1 % [facility] Mean Platelet Volume 10.4 7.6 - 12.9 fL [facility] NRBC% auto 0.0 % [facility] NRBC Absolute 0.000 0.000 - 0.000 x10(3)/mc L [facility] Blood 06/05/2022 12:4 3 AM EDT 06/05/2022 12:56 AM EDT Narrative Resulting Agency Comment Spec In Lab Rito Brooks MD HEMATOLOGY ORDERABLE S [facility] [place] [address] * Heparin (unfractionated) Level (06/05/2022 12:43 AM EDT) UF Heparin 0.33 IU/mL [facility] Comment: Heparin (anti-Xa) levels should [...] MD HEMATOLOGY ORDERABLE S Performing Organization Address [facility] de Phone Number [facility] [place] [address] * (ABNORMAL) Glucose, fasting (06/05/2022 12:43 AM EDT) Glucose Fasting 121(H) 65 - 99 mg/dL [facility] Comment: ?Fasting* Glucose Interpretive Criteria [...] of Diabetes Mellitus, Position Statement from the [place] [employer]. ??Diabetes Care, Volume 33, Supplement 1, Aug 2009 Blood 06/05/2022 12:4 3 AM EDT 06/05/2022 12:56 AM EDT Narrative Resulting Agency Comment Spec In Lab Rito Brooks MD CHEMISTRY ORDERABLES Performing Organization Address [facility] Co de Phone Number [facility] [place] [address] * Triglyceride (06/05/2022 12:43 AM EDT) Triglyceride 95 mg/dL [facility] Comment: Average Risk/Lower Risk: <150 mg/dL Borderline High Risk: 150-199 mg/dL High Risk: 200-499 mg/dL Very High Risk: >km=024 mg/dL Blood 06/05/2022 12:4 3 AM EDT 06/05/2022 12:56 AM EDT Narrative Resulting Agency Comment Spec In Lab Rito Brooks MD CHEMISTRY ORDERABLES Performing Organization Address City/[facility]/ZIP Co de Phone Number [facility] [place] [address] * HDL/Cholesterol Profile (06/05/2022 12:43 AM EDT) Cholesterol, Total 114 mg/dL [facility] Comment: Lower Risk: <200 mg/dL Average Risk: 200-239 mg/dL Higher Risk: >og=932 mg/dL HDL Cholesterol 48 mg/dL [facility] Comment: Males: ?? Higher Risk: <40 mg/dL Females: ?? Higher Risk: <50 mg/dL Cholesterol/HDL Ratio 2.4 ratio [facility] LABORATORY Chol/HDL Interpretation See Note [facility] Comment: Lipid management should be guided by a patient? s ASCVD risk, goals and preferences. ACC/AHA Guidelines recommend high intensity statin if clinical ASCVD or LDL greater than or equal to 190 mg/dL. http://[email or web address].[email or web address]/[email or web address]-ARH-[email or web address] Measure LDL if Total Cholesterol minus HDL Cholesterol is greater than 220 mg/dL. Adults aged 40-75 with LDL 70-189 mg/dL should have their 10 year ASCVD risk estimated with the ACC/AHA ASCVD risk spa coordinator http://tools.acc.org/XZDLZ-Mmzb-Lsyhyhzms/ Statin should be discussed if risk greater [...] Brooks MD CHEMISTRY ORDERABLES Performing Organization Address City/[facility]/ZIP Co de Phone Number [facility] [place] [address] * LDL Cholesterol, Direct (06/05/2022 12:43 AM EDT) LDL Cholesterol, Direct 50 mg/dL [facility] Comment: Lowest Risk: <100 mg/dL Lower Risk: 100-129 mg/dL Borderline High Risk: 130-159 mg/dL High Risk: 160-189 mg/dL Very High Risk: >nk=632 mg/dL Blood 06/05/2022 12:4 3 AM EDT 06/05/2022 12:56 AM EDT Narrative Resulting Agency Comment Spec In Lab Rito Brooks MD CHEMISTRY ORDERABLES [facility] [place] [address] * Hemoglobin A1c (06/05/2022 12:43 AM EDT) Pathologist [facility] [place] Hemoglobin A1c 5.6 4.3 - 5.6 % [facility] Comment: Reference Range: 4.3 - [...] Mellitus, Diabetes Care 2013; 36: Suppl. 1, Y59-69 Estimated Average Glucose See note mg/dL [facility] Comment: Estimated Average Glucose not [...] into estimated average glucose values. ??Diabetes Care 2008:31(8):9010-0824. Blood 06/05/2022 12:4 3 AM EDT 06/05/2022 12:56 AM EDT Narrative Resulting Agency Comment Spec In Lab Rito Brooks MD CHEMISTRY ORDERABLES Performing Organization Address City/State/[facility] Co de Phone Number [facility] [place] [address] * (ABNORMAL) BMP w/fasting Glucose (06/05/2022 12:43 AM EDT) Glucose Fasting 121(H) 65 - 99 mg/dL [facility] Comment: ?Fasting* Glucose Interpretive Criteria [...] of Diabetes Mellitus, Position Statement from the [place] [employer]. ??Diabetes Care, Volume 33, Supplement 1, Aug 2009 Blood Urea Nitrogen 12 8 - 18 mg/dL [facility] Creatinine 0.80 0.70 - 1.20 mg/dL [facility] Sodium 141 135 - 145 mmol/L [facility] Potassium 3.3(L) 3.5 - 5.0 mmol/L [facility] Comment: Please note: ??Patients with WBC >100,000 may have falsely elevated Potassium levels. ??For accurate Potassium quantification in these patients send serum separator tube (gold top) for subsequent determinations. ??Contact the Clinical Chemistry Laboratory if there are any questions. Chloride 107 98 - 107 mmol/L [facility] Carbon Dioxide 23 22 - 31 mmol/L [facility] Anion Gap 11 5 - 15 mmol/L [facility] Calcium 8.7 8.5 - 10.5 mg/dL [facility] Est Glomerular Filtration Rate 73 >=60 mL/min/1. 73 m?? [facility] Comment: This patient's estimated GFR [...] In Lab Rito Brooks MD CHEMISTRY ORDERABLES [facility] [place] [address] * Differential, Automated (06/04/2022 9:22 PM EDT) Neutrophil % 69.7 % [facility] Neutrophil Absolute 5.65 1.70 - 6.10 x10(3)/mcL [facility] Lymph % 21.4 % [facility] Lymphocytes Abs 1.7 0.9 - 3.2 x10(3)/[facility] Monocyte % 5.2 % [facility] Monocyte Abs 0.4 0.3 - 0.9 x10(3)/[facility] Eos % 3.3 % [facility] Eosinophils Abs 0.3 0.0 - 0.4 x10(3)/[facility] Basophil % 0.2 % [facility] Baso Absolute 0.0 0.0 - 0.1 x10(3)/[facility] Immature Gran % 0.20 % [facility] Comment: Immature granulocytes(IG's)percentage and absolute count will include metamyelocytes, myelocytes, and promyelocytes. Blood smears from CBCs yielding IG's will be scanned manually for concordance. If this scan disagrees with the automated IG or if promyelocytes are noted, a manual differential will be performed. Immature Gran Absolute 0.02 0.00 - 0.04 x10(3)/[facility] Blood 06/04/2022 9:22 PM EDT 06/04/2022 9:32 PM EDT Narrative Resulting Agency Comment Spec In Lab Rito Brooks MD HEMATOLOGY ORDERABLE S [facility] [place] [address] * (ABNORMAL) Hemogram (06/04/2022 9:22 PM EDT) White Blood Cell 8.1 4.0 - 9.5 x10(3)/[facility] Red Blood Cell 4.94 4.00 - 5.21 x10(6)/[facility] Hemoglobin 13.2 11.7 - 15.5 g/dL [facility] Hematocrit 41.0 35.7 - 45.8 % [facility] Mean Cell Volume 83.0 82.6 - 94.4 fL [facility] Mean Cell Hemoglobin 26.7(L) 27.1 - 32.0 pg [facility] Mean Cell Hemoglobin Concentration 32.2 31.7 - 35.0 g/dL [facility] Platelet 184 145 - 357 x10(3)/mc L [facility] RDW Standard Deviation 43.6 37.0 - 46.0 fL [facility] RDW coefficient of variation 14.5(H) 11.5 - 14.1 % [facility] Mean Platelet Volume 10.4 7.6 - 12.9 fL [facility] NRBC% auto 0.0 % [facility] NRBC Absolute 0.000 0.000 - 0.000 x10(3)/mc L [facility] Blood 06/04/2022 9:22 PM EDT 06/04/2022 9:32 PM EDT Narrative Resulting Agency Comment Spec In Lab Rito Brooks MD HEMATOLOGY ORDERABLE S [facility] [place] [address] * Heparin (unfractionated) Level (06/04/2022 9:22 PM EDT) UF Heparin 0.31 IU/mL [facility] Comment: Heparin (anti-Xa) levels should [...] Lab Rito Brooks MD HEMATOLOGY ORDERABLE S [facility] [place] [address] * (ABNORMAL) Troponin (06/04/2022 9:22 PM EDT) Troponin-T, High Sensitivity 27(H) <=14 ng/L [facility] Comment: This patient's troponin T [...] troponin value can be found in the [facility] Laboratory Test Catalog Troponin - Count Includes [facility] Laboratory Test Catalog Reference: Fourth [place] Definition of Myocardial Infarction. Journal of the [place] [employer] 2018;72:4088-5432 Blood 06/04/2022 9:22 PM EDT 06/04/2022 9:32 PM EDT Narrative Resulting Agency Comment Spec In Lab Rito Brooks MD CHEMISTRY ORDERABLES Performing Organization Address City/[facility]/ZIP Co de Phone Number [facility] [place] [address] * EKG 12 Lead (06/04/2022 9:14 PM EDT) Ventricular rate 64 BPM MUSE SYSTEM Atrial Rate 64 BPM MUSE SYSTEM P-R Interval 204 ms MUSE SYSTEM QRS Duration 100 ms MUSE SYSTEM Q-T Interval 428 ms MUSE SYSTEM QTC Calculated (Bezet) 441 ms MUSE SYSTEM Calculated P [place] 68 degrees MUSE SYSTEM Calculated R [place] -58 degrees MUSE SYSTEM Calculated T [place] 119 degrees MUSE SYSTEM INTERPRETATION Sinus rhythm Occasional Premature ventricular complexes Left axis deviation Poor R wave progression T wave abnormality, consider lateral ischemia Abnormal ECG When compared with ECG of 04-JUN-2022 17:57, Premature ventricular complexes are now Present Confirmed by MD Marylu, Tony ([id number]) on 06/05/2022 10:35:08 AM MUSE SYSTEM 06/04/2022 9:14 PM EDT 06/05/2022 10:35 AM EDT Rito Brooks MD ECG ORDERABLES Performing Organization Address City/[facility]/ZIP Co de Phone Number MUSE SYSTEM * TSH (06/04/2022 6:31 PM EDT) Pathologist [facility] [place] Thyroid Stimulating Hormone 2.93 0.27 - 4.20 mcIU/mL [facility] Comment: Reference Interval (mcIU/mL): Females: ??First Trimester: 0.23-3.88 ??Second Trimester: 0.22-3.90 ??Third Trimester: 0.44-4.66 Blood Venous Draw / Unknown 06/04/2022 6:31 PM EDT 06/04/2022 6:42 PM EDT Narrative Resulting Agency Comment Spec In Lab Rito Brooks MD CHEMISTRY ORDERABLES [facility] [place] [address] * (ABNORMAL) Differential, Automated (06/04/2022 6:31 PM EDT) Pathologist [facility] [place] Neutrophil % 74.6 % [facility] Neutrophil Absolute 6.56(H) 1.70 - 6.10 x10(3)/mc L [facility] Lymph % 17.2 % [facility] Lymphocytes Abs 1.5 0.9 - 3.2 x10(3)/[facility] Monocyte % 5.1 % [facility] Monocyte Abs 0.4 0.3 - 0.9 x10(3)/[facility] Eos % 2.6 % [facility] Eosinophils Abs 0.2 0.0 - 0.4 x10(3)/[facility] Basophil % 0.3 % [facility] Baso Absolute 0.0 0.0 - 0.1 x10(3)/[facility] Immature Gran % 0.20 % [facility] Comment: Immature granulocytes(IG's)percentage and absolute count will include metamyelocytes, myelocytes, and promyelocytes. Blood smears from CBCs yielding IG's will be scanned manually for concordance. If this scan disagrees with the automated IG or if promyelocytes are noted, a manual differential will be performed. Immature Gran Absolute 0.02 0.00 - 0.04 x10(3)/[facility] Blood 06/04/2022 6:31 PM EDT 06/04/2022 6:37 PM EDT Narrative Resulting Agency Comment Spec In Lab Rito Brooks MD HEMATOLOGY ORDERABLE S Performing Organization Address City/State/[facility] Co de Phone Number [facility] [place] [address] * (ABNORMAL) Hemogram (06/04/2022 6:31 PM EDT) White Blood Cell 8.8 4.0 - 9.5 x10(3)/[facility] Red Blood Cell 5.00 4.00 - 5.21 x10(6)/[facility] Hemoglobin 13.5 11.7 - 15.5 g/dL [facility] Hematocrit 41.8 35.7 - 45.8 % [facility] Mean Cell Volume 83.6 82.6 - 94.4 fL [facility] Mean Cell Hemoglobin 27.0(L) 27.1 - 32.0 pg [facility] Mean Cell Hemoglobin Concentration 32.3 31.7 - 35.0 g/dL [facility] Platelet 204 145 - 357 x10(3)/mc L [facility] RDW Standard Deviation 43.6 37.0 - 46.0 fL [facility] RDW coefficient of variation 14.4(H) 11.5 - 14.1 % [facility] Mean Platelet Volume 10.5 7.6 - 12.9 fL [facility] NRBC% auto 0.0 % [facility] NRBC Absolute 0.000 0.000 - 0.000 x10(3)/mc L [facility] Blood 06/04/2022 6:31 PM EDT 06/04/2022 6:42 PM EDT Narrative Resulting Agency Comment Spec In Lab Rito Brooks MD HEMATOLOGY ORDERABLE S Performing Organization Address City/State/[facility] Co de Phone Number [facility] [place] [address] * (ABNORMAL) Troponin (06/04/2022 6:31 PM EDT) Troponin-T, High Sensitivity 28(H) <=14 ng/L [facility] Comment: This patient's troponin T [...] troponin value can be found in the [facility] Test Catalog Troponin - Count Includes [facility] Laboratory Test Catalog Reference: Fourth [place] Definition of Myocardial Infarction. Journal of the [place] [employer] 2018;72:9911-2951 Blood 06/04/2022 6:31 PM EDT 06/04/2022 6:37 PM EDT Narrative Resulting Agency Comment Spec In Lab Rito Brooks MD CHEMISTRY ORDERABLES Performing Organization Address [facility] Co de Phone Number [facility] [place] [address] * Heparin (unfractionated) Level (06/04/2022 6:31 PM EDT) UF Heparin 0.17 IU/mL [facility] Comment: Heparin (anti-Xa) levels should [...] MD HEMATOLOGY ORDERABLE S Performing Organization Address City/[facility]/ZIP Co de Phone Number [facility] [place] [address] * (ABNORMAL) BMP w/fasting Glucose (06/04/2022 6:31 PM EDT) Glucose Fasting 111(H) 65 - 99 mg/dL [facility] Comment: ?Fasting* Glucose Interpretive Criteria [...] of Diabetes Mellitus, Position Statement from the [place] [employer]. ??Diabetes Care, Volume 33, Supplement 1, Aug 2009 Blood Urea Nitrogen 13 8 - 18 mg/dL [facility] Creatinine 0.75 0.70 - 1.20 mg/dL [facility] Sodium 141 135 - 145 mmol/L [facility] Potassium 3.8 3.5 - 5.0 mmol/L [facility] Comment: Please note: ??Patients with WBC >100,000 may have falsely elevated Potassium levels. ??For accurate Potassium quantification in these patients send serum separator tube (gold top) for subsequent determinations. ??Contact the Clinical Chemistry Laboratory if there are any questions. Chloride 106 98 - 107 mmol/L [facility] Carbon Dioxide 24 22 - 31 mmol/L [facility] Anion Gap 11 5 - 15 mmol/L [facility] Calcium 8.8 8.5 - 10.5 mg/dL [facility] Est Glomerular Filtration Rate 78 >=60 mL/min/1. 73 m?? [facility] Comment: This patient's estimated GFR [...] In Lab Rito Brooks [place] [address] * EKG 12 Lead (06/04/2022 5:57 PM EDT) Ventricular rate 56 BPM MUSE SYSTEM Atrial Rate 56 BPM MUSE SYSTEM P-R Interval 204 ms MUSE SYSTEM QRS Duration 92 ms MUSE SYSTEM Q-T Interval 408 ms MUSE SYSTEM QTC Calculated (Bezet) 393 ms MUSE SYSTEM Calculated P [place] 19 degrees MUSE SYSTEM Calculated R [place] -51 degrees MUSE SYSTEM Calculated T [place] 148 degrees MUSE SYSTEM INTERPRETATION Poor data quality, interpretation may be adversely affected Sinus bradycardia Left axis deviation Poor R wave progression ST & T wave abnormality, consider lateral ischemia Abnormal ECG When compared with ECG of 07-MAY-2020 09:38, No significant change was found Confirmed by MD Marylu, Tony ([id number]) on 06/05/2022 10:34:09 AM MUSE SYSTEM 06/04/2022 5:57 PM EDT 06/05/2022 10:34 AM EDT Rito Brooks MD ECG ORDERABLES MUSE SYSTEM documented in this encounter Visit Diagnoses Diagnosis NSTEMI (non-ST elevated myocardial infarction)- Primary Acute myocardial infarction, subendocardial infarction, episode of care unspecified Non-ST elevation myocardial infarction (NSTEMI) Acute myocardial infarction, subendocardial infarction, episode of care unspecified Frequent falls Personal history of fall NSTEMI (non-ST elevated myocardial infarction) Acute myocardial infarction, subendocardial infarction, episode of care unspecified Hyperlipidemia, unspecified hyperlipidemia type Hypertensive emergency Unspecified essential hypertension Frequent falls Personal history of fall Wound of left leg Open wound of knee, leg (except thigh), and ankle, without mention of complication Frequent falls Personal history of fall NSTEMI (non-ST elevated myocardial infarction) Acute myocardial infarction, subendocardial infarction, episode of care unspecified documented in this encounter Admitting Diagnoses Diagnosis NSTEMI [...] on Tue06/07/22 at 1000, Until Discontinued, Routine Given 06/09/2022 10:55 AM EDT 10 mg Given 06/08/2022 10:06 AM EDT 10 mg Given 06/07/2022 10:10 AM EDT 10 mg amLODIPine (Norvasc) tablet 5 mg 5 mg, Oral, DAILY, First dose on Tue06/04/22 at 2030, Until Discontinued, Routine Given 06/06/2022 9:48 AM EDT 5 mg Given 06/05/2022 9:34 AM EDT 5 mg Given 06/04/2022 8:28 PM EDT 5 mg amLODIPine (Norvasc) tablet 5 mg 5 mg, Oral, ONCE, 1 dose, On 06/06/22 at 1400, Routine Given 06/06/2022 3:53 PM EDT 5 mg aspirin EC tablet 81 mg 81 mg, Oral, DAILY, First dose on 06/05/22 at 0900, Until Discontinued, Routine Given 06/09/2022 8:41 AM EDT 81 mg Given 06/08/2022 8:16 AM EDT 81 mg Given 06/07/2022 10:45 AM EDT 81 mg clopidogreL (Plavix) tablet 300 mg 300 mg, Oral, ONCE, 1 dose, On 06/07/22 at 1800, Routine Given 06/07/2022 5:55 PM EDT 300 mg clopidogreL (Plavix) tablet 75 mg 75 mg, Oral, DAILY, First dose on Tu06/08/22 at 0900, Until Discontinued, Routine Given 06/08/2022 8:1 6 AM EDT 75 mg ezetimibe (Zetia) tablet 10 mg 10 mg, Oral, DAILY, First dose on 06/05/22 at 0900, Until Discontinued, Routine Given 06/09/2022 8:4 1 AM EDT 10 mg Given 06/08/2022 8:16 AM EDT 10 mg Given 06/07/2022 10:10 AM EDT 10 mg fluticasone propion-salmeteroL (ADVAIR) 250-50 mcg/dose diskus inhaler 1 puff 1 puff, Inhalation, 2 TIMES DAILY, First dose on 06/05/22 at 1115, Until Discontinued, Rinse mouth after administration Patient refusing alternative options ie symbicort Patient's own medication, Routine Given 06/09/2022 8:40 AM EDT 1 puff Given 06/08/2022 8:40 PM EDT 1 puff Given 06/08/2022 8:16 AM EDT 1 puff heparin (porcine) 50 units/mL in sodium chloride 0.45% 500 mL infusion 0-5,000 Units/hr (0-100 mL/hr), Intravenous, CONTINUOUS, Starting on Tue06/04/22 at 2115, Until 06/05/22 at 0731, Begin infusion at 850 units per hr (12 units/kg/hr). Maximum initial infusion rate is 1,000 units/hr. Infusion doses are rounded to the nearest 50 units. Target Heparin UFH Level (anti-Xa activity) = 0.3 - 0.7 international unit/mL Start adjustment schedule 6 hours after starting infusion. If Heparin UFH Level is: - Less than 0.1 international unit/mL: Administer PRN bolus and increase rate by 300 units per hr (4 units/kg/hr) - 0.1 - 0.19 international unit/mL: Administer PRN bolus and increase rate by 150 units per hr (2 units/kg/hr) - 0.2 - 0.29 international unit/mL: NO BOLUS and increase rate by 150 units per hr (2 units/kg/hr) - 0.3 - 0.7 international unit/mL: No change - 0.71 - 0.79 international unit/mL: NO BOLUS and decrease rate by 50 units per hr (1 units/kg/hr) - 0.8 - 0.99 international unit/mL: NO BOLUS and decrease rate by 150 units per hr (2 units/kg/hr) - Greater than or equal to 1.00 international unit/mL: Hold infusion for 60 minutes then decrease rate by 200 units per hour (3 units/kg/hr) Repeat Heparin UFH Level 6 hours after initiating heparin. Then 6 hours after each dose adjustment. When 2 consecutive Heparin UFH Level within target range of 0.3 - 0.7 international unit/mL, change Heparin UFH Level to once every 24 hours with A.M. labs while on heparin. RN to order required Heparin UFH Level - Per Protocol, Routine New Bag 06/04/2022 8:34 PM EDT 850 Units/hr 17 mL/hr hydrALAZINE (Apresoline) (20 mg/mL) injection 10 mg 10 mg, Intravenous, EVERY 6 HOURS PRN, Starting on Tue06/04/22 at 2017, Until Tue06/09/22 at 1520, High Blood Pressure, for SBP >160 Given 06/07/2022 4:40 AM EDT 10 mg Given 06/06/2022 4:47 AM EDT 10 mg Given 06/05/2022 4:45 PM EDT 10 mg losartan (Cozaar) tablet 100 mg 100 mg, Oral, DAILY, First dose (after last modification) on Tue06/06/22 at 1000, Until Discontinued, Routine Given 06/09/2022 10:55 AM EDT 100 mg Given 06/08/2022 10:06 AM EDT 100 mg Given 06/07/2022 10:10 AM EDT 100 mg losartan (Cozaar) tablet 50 mg 50 mg, Oral, DAILY, First dose on Tue06/04/22 at 2030, Until Discontinued, Routine Given 06/05/2022 9:34 AM EDT 50 mg Given 06/04/2022 8:28 PM EDT 50 mg losartan (Cozaar) tablet 50 mg 50 mg, Oral, ONCE, 1 dose, On 06/05/22 at 1315, Routine Given 06/05/2022 12:43 PM EDT 50 mg metoprolol tartrate (Lopressor) tablet 12.5 mg 12.5 mg, Oral, EVERY 6 HOURS SCHEDULED, First dose on 06/05/22 at 0000, Until Discontinued, Hold for SBP <90 or HR <60, Routine Given 06/08/2022 7:23 PM EDT 12.5 mg Given 06/08/2022 12:32 PM EDT 12.5 mg Given 06/07/2022 5:55 PM EDT 12.5 mg potassium chloride ER (K-Dur/Klor-Con) tablet 40 mEq 40 mEq, Oral, ONCE, 1 dose, On 06/05/22 at 0315, 20 mEq tablet may be dissolved in water for administration, Routine Given 06/05/2022 2:25 AM EDT 40 mEq potassium chloride ER (K-Dur/Klor-Con) tablet 40 mEq 40 mEq, Oral, ONCE, 1 dose, On Tue06/06/22 at 0800, 20 mEq tablet may be dissolved in water for administration, Routine Given 06/06/2022 7:35 AM EDT 20 mEq regadenoson (Lexiscan) injection 0.4 mg 0.4 mg, Intravenous, ONCE, 1 dose, On Tue06/07/22 at 0945, Radiology Contrast, Routine Given 06/07/2022 8:5 2 AM EDT 0.4 mg sodium chloride 0.9 % (flush) (BD PosiFlush Normal Saline 0.9) flush 5 mL 5 mL, Intravenous, 2 TIMES DAILY, First dose on Tue06/04/22 at 2115, Until Discontinued, Routine Given 06/09/2022 8:41 AM EDT 5 mLs Given 06/08/2022 8:40 PM EDT 5 mLs Given 06/08/2022 8:28 AM EDT 5 mLs sodium chloride 0.9% infusion 75 mL/hr, Intravenous, CONTINUOUS, Starting on Tue06/08/22 at 1730, Until Tue06/08/22 at 2129, Recovery (Recovery-Hospital Unit) New Bag 06/08/2022 5:10 PM EDT 75 mL/h r 75 mL/hr spironolactone (Aldactone) tablet 12.5 mg 12.5 mg, Oral, DAILY, First dose on Tue06/09/22 at 0900, Until Discontinued, DO NOT SPLIT, CRUSH OR OPEN, Routine technetium (Tc-99m) sestamibi injection 0-30 mCi 0-30 mCi, Intravenous, 2 TIMES DAILY PRN, 2 doses, Starting on Tue06/07/22 at 0805, Until Tue06/07/22 at 0852, Per Protocol, Radiology Contrast, Routine Given 06/07/2022 8:52 AM EDT 27.2 mCi Given 06/07/2022 7:50 AM EDT 8 mCi Le ft Arm documented in this encounter Active and Recently [...] area)1719 (OCT Unhold - Provider: Admin Adt) 1055 (Given - Provider: Valentina Arguelles RN) aspirin EC tablet 81 mg 81 mg, Oral, DAILY, First dose on Tue06/05/22 at 0900, Until Discontinued, Routine 1045 (Given - Provider: Shamika García RN) 0816 (Given - Provider: Valentina Arguelles, LENKA)1552 (OCT Hold - Provider: Admin Adt - Reason: Transfer to a Procedural area)1719 (OCT Unhold - Provider: Admin Adt) 0841 (Given - Provider: Valentina Arguelles RN) clopidogreL (Plavix) tablet 300 mg (COMPLETED) 300 mg, Oral, ONCE, 1 dose, On Tue06/07/22 at 1800, Routine 1755 (Given - Provider: Shamika García RN) clopidogreL (Plavix) tablet 75 mg (CANCELED) 75 mg, Oral, DAILY, First dose on Tue06/08/22 at 0900, Until Discontinued, Routine 0816 (Given - Provider: Valentina Arguelles RN)1552 ([facility] Hold - Provider: Admin Adt - Reason: Transfer to a Procedural area)171 ([facility] Unhold - Provider: Admin Adt) ezetimibe (Zetia) tablet 10 mg 10 mg, Oral, DAILY, First dose on 06/05/22 at 0900, Until Discontinued, Routine 1010 (Given - Provider: Shamika García RN) 0816 (Given - Provider: Valentina Arguelles, LENKA)1552 ([facility] Hold - Provider: Admin Adt - Reason: Transfer to a Procedural area)171 ([facility] Unhold - Provider: Admin Adt) 0841 (Given - Provider: Valentina Arguelles, LENKA) fluticasone propion-salmeteroL (ADVAIR) 250-50 mcg/dose diskus inhaler 1 puff 1 puff, Inhalation, 2 TIMES DAILY, First dose on 06/05/22 at 1115, Until Discontinued, Rinse mouth after administration Patient refusing alternative options ie symbicort Patient's own medication, Routine 1044 (Given - Provider: Shamika García RN)2008 (Given - Provider: Deanna Westfall RN) 0816 (Given - Provider: Valentina Arguelles, LENKA)1552 ([facility] Hold - Provider: Admin Adt - Reason: Transfer to a Procedural area)171 ([facility] Unhold - Provider: Admin Adt)2040 (Given - Provider: Deanna Westfall RN) 0840 (Given - Provider: Valentina Arguelles, LENKA) losartan (Cozaar) tablet 100 mg 100 mg, Oral, DAILY, First dose (after last modification) on Tue06/06/22 at 1000, Until Discontinued, Routine 1010 (Given - Provider: Shamika García RN) 1006 (Given - Provider: Valentina Arguelles, LENKA)1552 ([facility] Hold - Provider: Admin Adt - Reason: Transfer to a Procedural area)1719 ([facility] Unhold - Provider: Admin Adt) 1055 (Given - Provider: Valentina Arguelles RN) metoprolol tartrate (Lopressor) tablet 12.5 mg (CANCELED) 12.5 mg, Oral, EVERY 6 HOURS SCHEDULED, First dose on Tue06/05/22 at 0000, Until Discontinued, Hold for SBP [...] met)1232 (Given - Provider: Valentina Arguelles RN)1552 ([facility] Hold - Provider: Admin Adt - Reason: Transfer to a Procedural area)1719 (MAR Unhold - Provider: Admin Adt)1923 (Given - Provider: Valentina Arguelles RN) 0000 (Not Given - Provider: Deanna [...] 0828 (Given - Provider: Valentina Arguelles RN)1552 ([facility] Hold - Provider: Admin Adt - Reason: Transfer to a Procedural area)1719 (MAR Unhold - Provider: Admin Adt)2040 (Given - Provider: Deanna Westfall RN) 0841 (Given - Provider: Valentina Arguelles, LENKA) spironolactone (Aldactone) tablet 12.5 mg [...] Unit) 1710 (New Bag - Provider: Arun Munoz RN) PRN Medication Order 06/07/2022 06/08/2022 06/09/2022 acetaminophen [...] LENKA)1627 (Given - Provider: Diana Cordova RN) heparin (porcine) (1,000 units/mL) injection (CANCELED) ONCE [...] - Reason: Transfer to a Procedural area)171 ([facility] Unhold - Provider: Admin Adt) iohexoL (Omnipaque) (350 mg/mL) solution (CANCELED) ONCE PRN, Starting on Tue06/08/22 at 1639, Until Tue06/08/22 at 1719, Cath (Intra-Procedure), Routine 163 (Given - Provider: Doug Ruiz MD) midazolam [...] - Reason: Transfer to a Procedural area)171 (OCT Unhold - Provider: Admin Adt) nitroGLYcerin 100 mcg/mL intracoronary dilution (CANCELED) ONCE PRN, Starting on Tue06/08/22 at 1626, Until Tue06/08/22 at 1719, Cath (Intra-Procedure), Routine 162 (Given - Provider: Doug Ruiz MD) sodium [...] area)1719 (OCT Unhold - Provider: Admin Adt) technetium (Tc-99m) sestamibi injection 0-30 mCi (COMPLETED) 0-30 mCi, Intravenous, 2 TIMES DAILY PRN, 2 doses, Starting on Tue06/07/22 at 0805, Until Tue06/07/22 at 0852, Per Protocol, Radiology Contrast, Routine 0750 (Given - Provider: Gemma Griffin - Comment: InJ Site: LT Hand)0852 (Given - Provider: Chris Acosta) verapamiL (Isoptin) (2.5 mg/mL) injection (CANCELED) ONCE PRN, Starting on Tue06/08/22 at 1626, Until Tue06/08/22 at 1719, Administer over 2 Minutes, Cath (Intra-Procedure) 1626 (Given - Provider: Doug Ruiz MD) documented in this encounter Care Teams Dynamometer Tuner Relationship Specialty Start Date End Date Andrew Novak, VANCE [address] [place] [address] PCP - General Family Medicine 08/15/20 09/18/23 documented as of this encounter
--- OUTSIDE RECORDS SUMMARY | 2024-03-29 03:34 | XMS_ITS | Encounter Summary ---
[place] [address] Care Team Providers Care Sawsmith Name Role Phone Andrew Novak APRN Primary Care Provider +1- [phone] Encounter Details Date Type Department Care Team (Latest Contact Info) Description 06/09/2022 Travel Social History Tobacco Use Types Packs/Day [...] < 70 Result Component No Michael Mckinnon, [facility] documented as of this encounter Visit Diagnoses Not on filedocumented in this encounter Care Teams Sawsmith Relationship Specialty Start Date End Date Andrew Novak APRN [address] [place] [address] PCP - General Family Medicine 08/15/20 09/18/23 documented as of this encounter
--- OUTSIDE RECORDS SUMMARY | 2024-03-29 03:34 | XMS_ITS | Encounter Summary ---
[place] [address] Care Team Providers Care Robot Programmer Name Role Phone Andrew Novak APRN Primary Care Provider +1- [phone] Reason for Referral * Diagnostic Test (Routine) - Closed Specialty Diagnoses / Procedures Referred By Contac t Referred To Contact Cardiology Diagnoses Frequent falls NSTEMI (non-ST elevated myocardial infarction) Procedures Ziopatch 48 Hrs-15 Days Demetri Rivera PA [facility] [place] [address] [place] [address] [facility] [place] [address] Referral ID Status Reason Start Date Expiration Date V isits Requested Visits Authorized [id number] Closed Specialty Service Requested 06/09/2022 06/09/2023 1 1 Reason for Visit * Auth/Cert Specialty Diagnoses / Procedures Referred By Contac t Referred To Contact Diagnoses NSTEMI (non-ST elevated myocardial infarction) HTN emergency Sherita Rollins MD [facility] [address] [place] [address] [facility] Referral ID Status Reason Start Date Expiration Date Visits Re quested Visits Authorized [id number] 1 1 Encounter Details Date Type Department Care Team (Latest Contact Info) Description 06/09/2022 10:49 AM EDT - 06/09/2022 11:59 PM EDT Hospital Encounter [place] [address] Frequent falls; NSTEMI (non-ST elevated myocardial infarction) Discharge Disposition: Home Social History Tobacco Use Types Packs/Day Years Used Date Smoking Tobacco: Never Smokeless Tobacco: Never Alcohol Use Standard Drinks/Week Comments Yes 0 (1 standard drink = 0.6 oz pur e alcohol) Social Sex and Gender Information Value Date Recorded Sex Assigned at Not on file Gender Identity Not on file Sexual Orientation Not on file documented as of this encounter Medications at Time of Discharge [...] mg Tablet, SublingualIndications: Coronary artery disease involving [place] coronary artery, angina presence unspecified, unspecified whether [place] or transplanted heart Place 1 tablet under [...] as of this encounter Progress Notes * Sherita Rollins MD - 06/09/2022 11:59 PM EDT Benign ZioPatch result. documented in this encounter Plan of Treatment Not on file documented as of this encounter Goals Goal Patient Goal Type Associated Problems Recent Progress Patient-Stated? Author LDL CALC < 70 Result Component No Michael Mckinnon, [facility] documented as of this encounter Procedures Procedure Name Priority Date/Time Associated Diagnosis Comments ZIOPATCH 48 HRS-15 DAYS Routine 06/09/2022 10:54 AM EDT Frequent falls NSTEMI (non-ST elevated myocardial infarction) documented in this encounter Results * Ziopatch 48 Hrs-15 Days (06/09/2022 10:54 AM EDT) Anatomical Region Laterality Modality Other Narrative 06/24/2022 3:30 PM EST [facility] ? Zio Patch? Ambulatory Cardiac [...] Sherita Rollins MD CARDIAC SERVICES ORD ERABLES documented in this encounter Visit Diagnoses Diagnosis Frequent falls Personal history of fall NSTEMI (non-ST elevated myocardial infarction) Acute myocardial infarction, subendocardial infarction, episode of care unspecified documented in this encounter Care Teams Robot Programmer Relationship Specialty Start Date End Date Andrew Novak APRN [address] [place] [address] PCP - General Family Medicine 08/15/20 09/18/23 documented as of this encounter
--- OUTSIDE RECORDS SUMMARY | 2024-03-29 03:34 | XMS_ITS | Encounter Summary ---
[place] [address] Care Team Providers Care Community Associate Name Role Phone Andrew Novak APRN Primary Care Provider +1- [phone] Encounter Details Date Type Department Care Team (Late st Contact Info) Description 06/03/2022 Ancillary Procedure [place] [phone] Kal Child MD [address] [facility] [place] [address] Social History Tobacco Use Types Packs/Day Years [...] Component No Michael Mckinnon, [facility] documented as of this encounter Procedures Procedure Name Priority Date/Time Associated Diagnosis Comments FILM LIBRARY STORAGE ONLY CT HEAD AND SPINE Routine 06/03/2022 12:00 AM EDT documented in this encounter Results * Film Library- Storage Only CT Head And Spine (06/03/2022 12:00 AM EDT) Narrative [facility] - 06/04/2022 12:36 AM EDT This exam is auto-finalizing. It's purpose is for storage only. Kal Child MD IM FILM LIBRARY ORD ERABLES [place], [place] documented in this encounter Visit Diagnoses Not on filedocumented in this encounter Care Teams Community Associate Relationship Specialty Start Date End Date Andrew Novak APRN [address] [place] [address] PCP - General Family Medicine 08/15/20 09/18/23 documented as of this encounter
--- OUTSIDE RECORDS SUMMARY | 2024-03-29 03:34 | XMS_ITS | Encounter Summary ---
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 Onarrival, she had a large hematoma where she'd struck her head. Per provider, trauma workup was negative. She also was having R sided chest pain radiating down her R arm. An initial hs Tn was in the 90s, and EKG (uploaded in chart) showed NSR and LAFB. Concurrent with this, her BP was 200-250s/100s.She was given sl ntg x1 with resolution of her chest pain and ivp labetalol (unclear of timing in between). A subsequent EKG showed sinus jeanine HR ~ 50, inferolateral ST-D, poor RWP, and sub 1mm SARITA aVR with SBP 140s. They unfortunately had not scanned her chest. On further questioning with the prov ider, the initial BP in both arms was: R 204/80, L 257/122. Compared to her last EKG in our system (04/2020), the aforementioned does not appear much different beyond some modest down sloping STD in V5-6. I asked that, prior to starting heparin for NSTEMI, they obtain a CTA to r/o dissection. I also asked that they avoid the labetalol and keep her around SBP 140s, HR 60s (as she already was) pending CTA. They will call back immediately after CTA is done. Des Torres documented in this encounter Plan of Treatment Not on file documented as of this encounter Goals Goal Patient Goal Type Associated Problems Recent Progress Patient-Stated? Author LDL CALC < 70 Result Component No Michael Mckinnon, [facility] documented as of this encounter Visit Diagnoses Not on filedocumented in this encounter Care Teams Telegraphic Typewriter Mechanic Relationship Specialty Start Date End Date Andrew Novak, VANCE [address] [place] [address] PCP - General Family Medicine 08/15/20 09/18/23 documented as of this encounter
--- OUTSIDE RECORDS SUMMARY | 2024-03-29 03:34 | XMS_ITS | Encounter Summary ---
[place] [address] Care Team Providers Care Grinder And Honer Operator Automatic Name Role Phone Andrew Novka APRN Primary Care Provider +1- [phone] Encounter Details Date Type Department Care Team (Late st Contact Info) Description 06/03/2022 12:05 AM EDT Ancillary Procedure [place] [phone] Kal Child MD [address] [facility] [place] [address] Social History Tobacco Use Types Packs/Day Years [...] 70 Result Component No Michael Mckinnon, [facility] documented as of this encounter Procedures Procedure Name Priority Date/Time Associated Diagnosis Comments FILM LIBRARY STORAGE ONLY DX CHEST Routine 06/03/2022 12:05 AM EDT documented in this encounter Results * Film Library- Storage Only DX Chest (06/03/2022 12:05 AM EDT) Narrative [facility] - 06/04/2022 12:36 AM EDT This exam is auto-finalizing. It's purpose is for storage only. Kal Child MD IM FILM LIBRARY ORD ERABLES [facility] [place], [place] documented in this encounter Visit Diagnoses Not on filedocumented in this encounter Care Teams Grinder And Honer Operator Automatic Relationship Specialty Start Date End Date Andrew Novak APRN [address] [place] [address] PCP - General Family Medicine 08/15/20 09/18/23 documented as of this encounter
--- OUTSIDE RECORDS SUMMARY | 2024-03-29 03:34 | XMS_ITS | Encounter Summary ---
[place] [address] Care Team Providers Care Fiber Drier Operator Name Role Phone Andrew Novak APRN Primary Care Provider +1- [phone] Encounter Details Date Type Department Care Team (Late st Contact Info) Description 04/08/2022 Refill Cardiology at [address] [phone] Anisha Jung MD [address] [place] [address] Social History Tobacco Use Types Packs/Day Years [...] < 70 Result Component No Michael Mckinnon, [facility] documented as of this encounter Visit Diagnoses Diagnosis Hyperlipidemia, unspecified hyperlipidemia type documented in this encounter Care Teams Fiber Drier Operator Relationship Specialty Start Date End Date Andrew Novak APRN [address] [place] [address] PCP - General Family Medicine 08/15/20 09/18/23 documented as of this encounter
--- OUTSIDE RECORDS SUMMARY | 2024-03-29 03:34 | XMS_ITS | Encounter Summary ---
[facility] Organization [facility] [place] [address] Care Team Providers Care Tubular Stock Glass Bulb Machine Former Name Role Phone Andrew Novak APRN Primary Care Provider +1- [phone] Encounter Details Date Type Department Care Team (Late st Contact Info) Description 07/13/2022 Telephone Cardiology at [address] [phone] Anisha Jung MD [facility] [place] [address] Social History Tobacco Use Types Packs/Day Years [...] Encounter - Anisha Jung MD - 07/13/2022 11:07 AM ESTSummary: no show ss documented in this encounter Plan of Treatment Not on file documented as of this encounter Goals Goal Patient Goal Type Associated Problems Recent Progress Patient-Stated? Author LDL CALC < 70 Result Component No Michael Mckinnon, [facility] documented as of this encounter Visit Diagnoses Not on filedocumented in this encounter Care Teams Tubular Stock Glass Bulb Machine Former Relationship Specialty Start Date End Date Andrew Novak APRN [address] [place] [address] PCP - General Family Medicine 08/15/20 09/18/23 documented as of this encounter
--- OUTSIDE RECORDS SUMMARY | 2024-03-29 03:34 | XMS_ITS | Encounter Summary ---
[place] [address] Care Team Providers Care Powertrain Control Systems Engineer Name Role Phone Andrew Novak APRN Primary Care Provider +1- [phone] Encounter Details Date Type Department Care Team (Late st Contact Info) Description 07/01/2022 [place] [phone] Anisha Jung MD [address] [place] [address] Hyperlipidemia, unspecified hyperlipidemia type Social History Tobacco [...] type documented in this encounter Care Teams Powertrain Control Systems Engineer Relationship Specialty Start Date End Date Andrew Novak APRN [address] [place] [address] PCP - General Family Medicine 08/15/20 09/18/23 documented as of this encounter
--- OUTSIDE RECORDS SUMMARY | 2024-03-29 03:34 | XMS_ITS | Encounter Summary ---
Author Organization [facility] [place] [address] Care Team Providers Care Entry Level Truck Driver Name Role Phone Andrew Novak APRN Primary Care Provider [phone]- [phone] Encounter Details Date Type Department Care Team (Latest Contact Info) Description 05/04/2022 9:00 AM EDT Office Visit Cardiology at [address] [phone] Anisha Vargas MD [facility] [place] [address] Hyperlipidemia, unspecified hyperlipidemia type; Essential hypertension; Status post coronary artery bypass grafting; Coronary artery disease involving [place] coronary artery of [place] heart without angina pectoris Social History Tobacco [...] Sign Reading Time Taken Comments Blood Pressure 199/52 05/04/2022 8:52 AM EDT Pulse 59 05/04/2022 8:52 AM EDT Temperature - - Respiratory Rate - - Oxygen Saturation 98% 05/04/2022 8:5 2 AM EDT Inhaled Oxygen Concentration - - Weight 73.8 kg (162 lb 12.8 oz) 05/04/2022 8:52 AM EDT 158 lbs Reported Home Weight Height 154.9 cm (5' 1) 05/04/2022 8:52 AM EDT Reported Body Mass Index 30.76 05/04/2022 8:52 AM EDT documented in this encounter Progress Notes * Anisha Vargas MD - 05/04/2022 9:00 AM EDT CARDIOLOGY OUTPATIENT EVALUATION NOTE PRIMARY CARE PROVIDER: Jacob Foley DO REFERRING PROVIDER: Jacob Foley Patient ID: Ginger Amador is a 86 y.o. female. HPI: From: Dirk Batres RPH Sent: 08/20/2022 ??11:55 AM EST To: Adrianna Cabello RN ----- Message from Dirk Batres RPH sent at 08/20/2022 11:55 AM EST ----- Fernando Rodas, We tried to reach the patient multiple times and have been unsuccessful so we have d/c the patient from the pharmacy specialty services. Thank you, Specialty Pharmacy 05/04/22 LIPID CLINIC She presents for follow up for Lipids She is followed for General Cardiology by Dr. Dean Tilley CAD, hypertension, dyslipidemia Today she states that she has not been taking her lipid medications. She has been prescribed ezetimibe 10 mg but not taking it, she is taking the alirocumab --but unclear if she is doing this on schedule. ??She does not smoke, occ wine. She lives alone, no pets daughter and grandson near by. 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 ??? Status post coronary artery bypass grafting ? 09/24/2014 CABG x 4: DAUGHERTY to LAD, SVG to om, svg to diag, jerardo to rca. 10/11/2018 Nuclear stress test at [facility] to 6.5 METS showed predominantly fixed defect in the basal tomid lateral wall, LVEF 59%. 12/19/2018 Echocardiogram showed asymetrical septal thickening, nl LVEF, evidence for diastolic dysfunction with increased filling pressure, aortic valve sclerosis,? CAD (coronary artery disease) ??? Hypertension ??? LUNA (dyspnea on exertion) ??? Muscle cramps ??? Asthma ??? Actinic keratosis ??? Verruca vulgaris ??? Seborrheic keratosis ?? EKG 05/07/20 Sinus at 57 LAD, possible inferior and lateral DE Labs 03/20/20 A1c 6.2 12/19/18 echocardiogram at [facility] Normal LV systolic, diastolic dysfunction, no significant valve abnormalities PROBLEM LIST: Problem List: 2019-01: LUNA (dyspnea on exertion) 2019-01: Muscle cramps 2018-09: Asthma 2015-07: Status post coronary artery bypass grafting 2015-06: CAD (coronary artery disease) 2015-06: Hypertension 2013-03: Actinic keratosis 2012-09: Verruca vulgaris 2012-09: Seborrheic keratosis MEDICATIONS: Current Outpatient Medications Medication Sig Dispense Refill ??? alirocumab (Praluent Pen) 75 mg/mL Pen Injector Inject 1 mL subcutaneously every 21 days. 2 mL 0 ??? amLODIPine (Norvasc) 5 mg Tablet Take 5 mg by mouth daily. ??? ubidecarenone (CO Q-10 ORAL) Take by mouth. ??? ezetimibe (Zetia) 10 mg Tablet Take 1 tablet by mouth daily. 90 tablet 3 ??? nitroGLYcerin (Nitrostat) 0.4 mg Tablet, Sublingual Place 1 tablet under the tongue every 5 minutes as needed for Chest pain. 90 tablet 12 ??? cholecalciferol, Vitamin D3, 10 mcg (400 unit) Capsule Take by mouth. Indications: one daily ??? spironolactone (ALDACTONE) 25 mg Tablet Take 12.5 mg by mouth daily. Alternates 12.5 and 25 every other day 0 ??? losartan (COZAAR) 100 mg Tablet Take 100 mg by mouth daily. ??? Cod Liver Oil Oil Take 1 Dose by mouth daily. ??? GLUCOSAMINE/METHYLSULFONYLMETH (GLUCOSAMINE MSM ORAL) Take 500 mg by mouth as needed. ??? CALCIUM ORAL Take 1 tablet by mouth daily. ??? FEVERFEW ORAL Take 1 tablet by mouth daily. ??? fluticasone-salmeterol (ADVAIR) 250-50 mcg/dose Disk with Device Inhale 1 puff into the lungs 2times daily. ??? aspirin 81 mg Tablet, Delayed Release (E.C.) Take 1 tablet by mouth daily. 30 tablet 3 No current facility-administered medications for this visit. Subjective: Review of Systems Constitution: Negative for malaise/fatigue and weight gain. Cardiovascular: Positive for dyspnea on exertion. Negative for chest pain, claudication, cyanosis, irregular heartbeat, leg swelling, near-syncope, orthopnea, palpitations, paroxysmal nocturnal dyspnea and syncope. Respiratory: Negative for shortness of breath and sleep disturbances due to breathing. Hematologic/Lymphatic: Does not bruise/bleed easily. Musculoskeletal: Positive for back pain and joint pain. Negative for falls. Genitourinary: Negative for frequency. Neurological: Negative for dizziness, light-headedness and loss of balance. Psychiatric/Behavioral: Negative for altered mental status and memory loss. Social History: Social History Socioeconomic History ??? [...] 2 boys. 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 She enjoys the bed and breakfast, [place],reading. 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 Neck: Vascular: No JVD. Cardiovascular: Rate and Rhythm: Normal rate and regular rhythm. Heart sounds: Normal heart sounds. Pulmonary: Effort: Pulmonary effort is normal. Breath sounds: Normal breath sounds. Skin: General: Skin is warm and dry. Neurological: Mental Status: She is alert and oriented to person, place, and time. Psychiatric: Behavior: Behavior normal. Patient Vitals for the past 24 hrs: Pulse BP SpO2 05/04/22 0852 59 199/52 98 % REPEAT BY DR VARGAS 152/70 No results found for this or any previous visit (from the past 72 hour(s)). Assessment and Plan: No problem-specific Assessment & Plan notes found for this encounter. Lipids ?? Not taking ezetimibe, taking PCSK9i but unclear if she is taking as directed (I reviewed this with her) ?? She wanted to see what her LDL is without the ezetimibe. She would prefer not to have to go to our lab here today; I have asked that my lab order be faxed to her local hospital ?? Goal for LDL < 70 Blood pressure Recheck as noted above, she also shows me her home readings which are overall reasonable. She does not want her systolic BP < 150 although I have explained to her why lower would be better She is followed for general cardiology by Dr. Dean Tilley; she will have f/u with him and return to see me for her lipid management. I will renew her PCSK9i prescription. She will have lipid panel at outside hospital and I will contact her with results. Time spent for this clinic appointment on the date of service includes: 1) [id number] counseling as noted above 2) reviewing past medical records, cardiac testing, results of laboratory testing 3) coordinating care with other physicians and allied health care providers Anisha Vargas MD, Miesha, FACC, FNLA Attending Roguer documented in this encounter Plan of Treatment Not on file documented as of this encounter Goals Goal Patient Goal Type Associated Problems Recent Progress Patient-Stated? Author LDL CALC < 70 Result Component No Michael Mckinnon, [facility] documented as of this encounter Results * (ABNORMAL) Lipid Panel (Reflex Direct LDL) (10/22/2022 10:41 AM EST) Cholesterol, Total 232(H) [facility] Triglyceride 87 [facility] HDL Cholesterol 58 [facility] LDL Cholesterol 157(H) [facility] Blood 10/22/2022 10:4 1 AM EST Anisha Vargas MD CHEMISTRY ORDERABLES [facility] documented in this encounter Visit Diagnoses Diagnosis Hyperlipidemia, unspecified hyperlipidemia type Essential hypertension Unspecified essential hypertension Status post coronary artery bypass grafting Postsurgical aortocoronary bypass status Coronary artery disease involving [place] coronary artery of [place] heart without angina pectoris documented in this encounter Care Teams Entry Level Truck Driver Relationship Specialty Start Date End Date Andrew Novak, COLLAR TURNER OPERATOR [address] [place] [address] PCP - General Family Medicine 08/15/20 09/18/23 documented as of this encounter
--- OUTSIDE RECORDS SUMMARY | 2024-03-29 03:35 | XMS_ITS | Encounter Summary ---
[facility] [place] [address] Care Team Providers Care Sba Underwriter Name Role Phone Unavailable Primary Care Provider Unavailabl e Encounter Details Date Type Department Care Team (Late st Contact Info) Description 03/31/2020 Notes Only Cardiology at [address] [phone] Nellie Mclaughlin MD [facility] [place] [address] Social History Tobacco Use Types Packs/Day Years Used Date Smoking Tobacco: Never Smokeless Tobacco: Never Alcohol Use Standard Drinks/Week Comments Yes 0 (1 standard drink = 0.6 oz pur e alcohol) Social Sex and Gender Information Value Date Recorded Sex Assigned at Not on file Gender Identity Not on file Sexual Orientation Not on file documented as of this encounter Progress Notes * Nellie Mclaughlin MD - 03/31/2020 8:33 AM EDT Called Ginger with the results of her lab test 03/25/20 - will continue the alirocumab and ezetimibe documented in this encounter Plan of Treatment Not on file documented as of this encounter Goals Goal Patient Goal Type Associated Problems Recent Progress Patient-Stated? Author LDL CALC < 70 Result Component No Michael Mckinnon, [facility] documented as of this encounter Visit Diagnoses Not on filedocumented in this encounter
--- OUTSIDE RECORDS SUMMARY | 2024-03-29 03:35 | XMS_ITS | Encounter Summary ---
[place] [address] Care Team Providers Care Senior Underwriting Assistant Name Role Phone Andrew Novak APRN Primary Care Provider +1- [phone] Reason for Visit * Reason Comments Medication Management Praluent/Ezetimibe Co-pay Assistance Encounter Details Date Type Department Care Team (Late st Contact Info) Description 01/16/2021 Specialty [place] [phone] Chula Hinojosa, SINTIA Social History Tobacco Use [...] encounter Progress Notes * Chula Hinojosa - 01/16/2021 12:31 PM EDT [facility], Copay Assistance Medication Name: Ezetimibe and Praluent Medication ID: Copay Assistance/Copay Card: Name of Assistance Program: Over 40 Females Hypercholesterolemia Haris Amount Provided by Program: $2,500 New Copayment: $0 Additional Information regarding this Assistance: [employer] Hypercholesterolemia Haris approved from 12/16/2021 - 12/16/2022 to reduce the cost of Ezetimibe from $60 to $0 and Praluent from $94 to $0. This was approved with up to $2,500 in copay assistance. Chula Hinojosa 12/28/21 1:57 PM documented in this encounter Plan of Treatment Not on file documented as of this encounter Goals Goal Patient Goal Type Associated Problems Recent Progress Patient-Stated? Author LDL CALC < 70 Result Component No Michael Mckinnon, [facility] documented as of this encounter Visit Diagnoses Not on filedocumented in this encounter Care Teams Senior Underwriting Assistant Relationship Specialty Start Date End Date Andrew Novak APRN [address] [place] [address] PCP - General Family Medicine 08/15/20 09/18/23 documented as of this encounter
--- OUTSIDE RECORDS SUMMARY | 2024-03-29 03:35 | XMS_ITS | Encounter Summary ---
Author Organization [facility] [place] [address] Care Team Providers Care Selling Underwriter Name Role Phone Unavailable Primary Care Provider Unavailabl e Encounter Details Date Type Department Care Team (Late st Contact Info) Description 05/01/2019 Notes Only Cardiology at [address] [phone] [facility] [place] [address] Social History Tobacco Use Types Packs/Day Years Used Date Smoking Tobacco: Never Smokeless Tobacco: Never Alcohol Use Standard Drinks/Week Comments Yes 0 (1 standard drink = 0.6 oz pur e alcohol) Social Sex and Gender Information Value Date Recorded Sex Assigned at Not on file Gender Identity Not on file Sexual Orientation Not on file documented as of this encounter Progress Notes * Luis Felipe Flores RD - 05/01/2019 10:04 AM EDT Followed up with patient via e-mail, per plan. On Apr 30, 2019 at 7:55 AM Luis Felipe Flores < > wrote: Good morning, Ginger, How was the gala? It was surely a beautiful day yesterday. This is just a reminder of your goal when we met???.it is to install and try out [employer] to see if it might be a useful tool to you. Let me know your thoughts or your experience with it when youget a chance to try it out for a few days. With best wishes, Luis Felipe Flores RD Dietitian Wellness Coach Cardiovascular Medicine TEL: [phone] Patient reply: From: Ginger Amador <[email or web address]> Sent: Tuesday, April 30, 2019 12:45 PM To: Luis Felipe Flores <[email or web address]> Subject: Re: Your copying machine mechanic checking in External The gala went well. It was actually on tuesday, cloudy and a bit cool and rain in the morning (while setting up!), but all had a good time, the tent kept us warm, it did not rain during the event and even warmed upin the evening. After everyone left, about 9 mao, we sat at the [facility] [employer] for a long long time watching a full rivas rise and relaxing. Had well over 100 people -- I was pleased! Do not want to talk about diet this week -- details to finish up, keg and cake boards to return, thank yous to do, and the results of cleaning up an absolutely delicious gluten free lemon cake must be melted away somehow! Let's try next week if you don't mind! I am quite free of people in my face until -- then begins Fall [employer] guests. Thanks for following up! ginger documented in this encounter Plan of Treatment Not on file documented as of this encounter Visit Diagnoses Diagnosis Nutritional counseling documented in this encounter
--- OUTSIDE RECORDS SUMMARY | 2024-03-29 03:35 | XMS_ITS | Encounter Summary ---
[place] [address] Care Team Providers Care Wood Fence Installer Name Role Phone Kishore Andrew aMbry APRN Primary Care Provider [phone] Encounter Details Date Type Department Care Team (Late st Contact Info) Description 08/18/2021 2:00 PM EST Procedure [place] [id number] Chon Snyder MD [facility] [place] [address] Neuropathy; Muscle cramps Social History Tobacco Use Types Packs/Day Years Used Date Smoking Tobacco: Never Smokeless Tobacco: Never Alcohol Use Standard Drinks/Week Comments Yes 0 (1 standard drink = 0.6 oz pur e alcohol) Social Sex and Gender Information Value Date Recorded Sex Assigned at Not on file Gender Identity Not on file Sexual Orientation Not on file documented as of this encounter Progress Notes * Jeff Bower MD - 08/18/2021 2:00 PM EST Images from the original note were not included. Neurology EMG Only Clinic Note - 08/18/2021 Patient name: Ginger Amador Date of : 1935 PCP: Jacob Foley DO Clinic Attending: Jaguar Snyder MD I have seen Ginger Amador, patient of Jacob Foley DO, for evaluation of weakness of both hands in the EMG lab for EMG/NCS performed today focusing on the right arm including radial sensorimotor, as well as right leg and potentially contralateral comparisons. She was recently seen by Dr. Snyder 07/24/21 please see that note for details of her clinical history and presentation summarized below. She is pending MRI C-spine 08/27/20. Ginger Amador is a 85 y.o. 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 She has developed progressive hand weakness on top of a baseline of urinary incontinence, imbalance, high CK and right leg weakness with possible radiculopathy (thought to have right L5 radiculopathy on prior EMG/NCS performed by Dr. Snyder in 2015/2016). She has no known history of diabetes or significant alcohol use, and nor is there any family history of neuropathy as far she knows. However she did have an elevated hemoglobin A1c 6.2 (03/20/20 and 09/17/20) performed at an outside lab (results below). She reports gradual progression in generalized weakness since the age of 37. She reports cramps to legs bilaterally aggravated by walking. No known family history of similar symptoms. The patient is on ASA 81 mg daily. Relevant Physical Examination Findings: Per Dr. Snyder' note from 07/24/21: On physical exam, she has bilateral hand atrophy of the intrinsic musculature, right greater than left. She has thenar atrophy on the right greater than left. She has decreased sensation to light touch, pinprick, cold, and vibration in the right hand. The ulnar distribution seems to be the worst, with the volar fifth finger and medial fourth finger affected, but the median distribution is not normal, and neither is the dorsal hand. The forearm seems spared. She feels pinprick quite well over the anterior chest. She has decreased vibratory sensation in the hands bilaterally right greater than left, and absent sensation at the knees, ankles, and feet bilaterally. Reflexes are brisk in both arms biceps, brachioradialis, and triceps. The jaw jerk seems normal. In the lower extremities she hasan exaggerated startle which is delayed after reflex testing. There probably is some briskness at the patellas, but the amplitude of the reflex is decreased. Ankle jerks are hard to elicit but meanwhile she has trouble relaxing. She seems to have some dorsiflexion of her right great toe at baseline, but she can relax it with effort. I cannot say definitively that tone is increased in the knees. The plantar reflexes seem to be mute bilaterally. ?? On strength testing, right APB is 2 out of 5, and ADM and FDI are both 3/5 at best. On the left APBis 4-/4, and ADM/FDI are 4/5. she has 4/5 EDC weakness bilaterally. FPL seems full or nearly full bilaterally, as did the median FDPs. The ulnar FDPs are weak. Wrist flexion, wrist extension, biceps,triceps, and deltoid all seem full or nearly full. No lower extremity, right TA is 4/5, and she cannot heel walk on that side. On the left it is full, and the bilateral EHL seem full. Inversion and eversion are difficult to test. Plantar flexion seems full and that she can stand on her toes when I assessed her for balance. Proximal leg strength is full bilaterally, including adduction, abduction, hamstring, and quad. Iliopsoas is 4+/5 bilaterally. Face is symmetric with normal eye closure. I could not appreciate any tongue atrophy or neck flex ex weakness. She does have arthritic changes of the hands. Electrodiagnostic testing: For details, please see scanned documents, to follow. The pertinent findings are summarized here: Sensory Nerve Conductions: Right median (at the palm): low amplitude at 21.9 ??V, velocity 30.5 m/s Right median (from the index finger): Low amplitude at 12.4 ??V, velocity of 32.8 m/s Left median (at the palm): Low amplitude at 38.2 ??V, velocity of 40 m/s Left median (from the index finger): normal amplitude, velocity of 36.6 m/s Right ulnar: Normal amplitude and low velocity 36.5 Left ulnar: normal amplitude, low velocity of 39.7 m/s Right radial: Low amplitude 12.5 ??V and normal velocity 45.5 m/s Left radial: Low amplitude 10.9 ??V and normal velocity 50.1 m/s Right superficial peroneal: Normal amplitude and velocity Motor Nerve Conductions: Right median: distal latency of 9.4 ms, low amplitude 0.5 mV and velocity 48.8 m/s Left median: Prolonged distal latency 5.4 ms, low amplitude 3.5 mV and velocity normal 52.7 m/s Right ulnar: Prolonged distal latency 4.1 ms, normal amplitude, and velocity without slowing acrossthe elbow Left ulnar: Normal amplitude, distal latency and velocity without slowing across the elbow Right radial at EIP: Normal distal amplitude and velocity 49.5, limited technically at the proximalstimulation site Right peroneal at EDB: Normal distal latency, low amplitude 1.4 mV, and normal velocity 43.8 m/s Right tibial: Prolonged distal latency 11 ms, low amplitude 0.3 mV F waves: normal bilateral ulnar, prolonged right median and absent left median and right peroneal EMG studies: Right deltoid: normal motor units Right biceps: normal motor units Right EDC: Neurogenic motor units with 40% reduced recruitment Right brachioradialis: Neurogenic units with 70% reduced recruitment Right FCR: normal motor units Right FDI: Neurogenic motor units with 30% reduced recruitment, 1+ abnormal spontaneous activity Right tibialis anterior: Polyphasic motor units with 90% reduced recruitment and 2+ spontaneous abnormal activity Right gastrocnemius: Prolonged motor units with reduced activation in 90% reduced recruitment, 2+ abnormal spontaneous activity Right vastus lateralis: Normal motor units Left gastrocnemius: Normal motor units with 2+ spontaneous abnormal activity Left tibialis anterior: Normal units with 2+ spontaneous abnormal activity Left FDI: Increased duration motor units with 30% reduced recruitment and 3+ spontaneous abnormal activity Left EDC: Increased duration units with 50% reduced recruitment in 1+ spontaneous abnormal activity Left genioglossus: No abnormal spontaneous activity Mid thoracic paraspinals: No abnormal spontaneous activity Impression: These electrodiagnostic studies are abnormal due to widespread evidence of active and chronic nerveinjury. Active denervation was seen in all 4 extremities most prominent distally. Chronic neurogenic changes were seen in several areas that did not fit a single nerve root distribution. 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 There is no evidence of a lower motor neuron disease affecting the bulbar or thoracic segments on needle EMG. Clinical correlation: Overall, there has been a further progression in the widespread neuropathic process compared to prior electrodiagnostic studies from. The etiology of her neuropathy remains unclear, howeverthere has been both clinical and electrodiagnostic progression over time. She is pending an MRI of the C-spine and was advised to keep this appointment. As well, she is due for some laboratory investigations, and we had previously ordered a CK and B12 level that will be done tomorrow per the patient's report. Of note, she has been diagnosed with prediabetes, however the findings are much more than would be expected for that diagnosis alone. We may refer to a colleague for a second opinion given concern of possible motor neuron disease due to the profound weakness and atrophy that may be in addition to superimposed compression neuropathies to explain the sensory abnormalities. We have asked her to arrange for follow-up via telehealth after her MRI and lab work have been completed. Jeff Bower MD Clinical Neurophysiology Fellow Pager: [phone] CC: Jacob Foley DO, Jacob Foley I saw and evaluated the patient with Dr. Bower. I have reviewed the fellow's history during the visit and agree with the details as written. My neurological exam confirms the fellow's findings. The assessment and plan were formulated in discussion with me at the time of the visit and I agree with them as documented. I was present for all of the wick components of the procedure and agree with the findings and interpretation. This is a complex study. She has evidence of both chronic and active neurogenic injury. There is evidence of widespread active denervation in the limbs, but not the cranial or thoracic paraspinal musculature. Motor nerve conduction studies are affected out of proportion to the sensory studies. These abnormalities could suggest a syndrome of multiple multifocal neuropathies. However, multipleentrapment neuropathies and radiculopathies with superimposed motor neuropathy is not ruled-out. We suggested serologic work-up for immune neuropathy, MRI of the cervical spine, and then follow-up. In the meantime I will discuss this case with my colleagues, and consider LP, nerve biopsy, or referral for a second opinion. Chon Snyder MD 08/19/2021 Manager Delivery General Neurology and Clinical Neurophysiology [facility] Department of Neurology -- PRIOR STUDIES documented in this encounter Miscellaneous Notes * Addendum Note - Chon Snyder MD - 08/18/2021 2:00 PM ESTAddended by: CHON SNYDER on: 08/19/2021 11:18 AM Modules accepted: Level of Service * Addendum Note - Jeff Bower MD - 08/18/2021 2:00 PM ESTAddended by: JEFF BOWER on: 08/19/2021 01:14 PM Modules accepted: Orders documented in this encounter Plan of Treatment Not on file documented as of this encounter Goals Goal Patient Goal Type Associated Problems Recent Progress Patient-Stated? Author LDL CALC < 70 Result Component No Michael Mckinnon, [facility] documented as of this encounter Results * Ganglioside Antibodies (08/27/2021 11:54 AM EST) Ganglioside Antibodies See Scan Report [facility] Comment:Test performed by [facility], [address] [place] [id number] Blood 08/27/2021 11:5 4 AM EST 08/27/2021 2:58 PM EST Narrative Resulting Agency Comment Spec In Lab Chon Snyder MD LAB SEND OUT BYRON GUTHRIE [facility] Organization Address City/State/ZIP Co de Phone Number [facility] [place] [address] * Hepatic Function Panel (08/27/2021 11:54 AM EST) Protein, Total 7.0 6.1 - 8.0 g/dL [facility] Albumin 4.4 3.2 - 5.2 g/dL [facility] Aspartate Aminotransferase 22 0 - 30 unit/L [facility] Alanine Aminotransferase 20 0 - 30 unit/L [facility] Alkaline Phosphatase 83 35 - 105 unit/L [facility] Bilirubin, Total 0.4 0.2 - 1.3 mg/dL [facility] Bilirubin, Direct 0.1 0.0 - 0.3 mg/dL [facility] Blood 08/27/2021 11:5 4 AM EST 08/27/2021 12:06 PM EST Narrative Resulting Agency Comment Spec In Lab Chon Snyder MD CHEMISTRY ORDERAB LES Performing Organization Address [facility]/ZIP Co de Phone Number [facility] [place] [address] * Miscellaneous Lab request (08/27/2021 11:54 AM EST) Label Request received in lab. [facility] Blood 08/27/2021 11:5 4 AM EST 08/27/2021 12:04 PM EST Narrative Resulting Agency Comment Spec In Lab Chon Snyder MD LAB SEND OUT ORDE RABLES Performing Organization Address [facility] Co de Phone Number [facility] [place] [address] * Vitamin B1, whole blood (08/27/2021 11:54 AM EST) Vit B1 Lvl Wb (DECEMBER) 175 70 - 180 nmol/L [facility] Comment: ADDITIONAL INFORMATION This test was developed and its performance characteristics determined by [facility] in a manner consistent with CLIA requirements. This test has not been cleared or approved by the U.S. Food and Drug Administration. Test Performed by: [facility] - [address] [address] Neuropsychiatrist: Brando Lake M.D. Ph.D.; CLIA# [id number] Blood 08/27/2021 11:5 4 AM EST 08/27/2021 2:45 PM EST Narrative Resulting Agency Comment Spec In Lab Chon Snyder MD LAB SEND OUT BYRON HOGANELISEO Performing Organization Address City/[facility]/ZIP Co de Phone Number [facility] [place] [address] * Vitamin B6 (08/27/2021 11:54 AM EST) Vitamin B6 (DECEMBER) 42 5 - 50 mcg/L [facility] Comment: ADDITIONAL INFORMATION This test was developed and its performance characteristics determined by [facility] in a manner consistent with CLIA requirements. This test has not been cleared or approved by the U.S. Food and Drug Administration. Test Performed by: [facility] [place] [address] Neuropsychiatrist: Brando Lake M.D. Ph.D.; CLIA# [id number] Blood 08/27/2021 11:5 4 AM EST 08/27/2021 2:45 PM EST Narrative Resulting Agency Comment Spec In Lab Chon Snyder MD LAB SEND OUT BYRON GUTHRIE Performing Organization Address [facility] Co de Phone Number [facility] [place] [address] * Vitamin B12 (08/27/2021 11:54 AM EST) Vitamin B12 452 232 - 1,245 pg/mL [facility] Blood 08/27/2021 11:5 4 AM EST 08/27/2021 12:06 PM EST Narrative Resulting Agency Comment Spec In Lab Chon Snyder MD CHEMISTRY ORDERAB LES Performing Organization Address City/[facility]/ZIP Co de Phone Number [facility] [place] [address] * (ABNORMAL) CK (08/27/2021 11:54 AM EST) Creatine Kinase 185(H) 0 - 160 unit/L [facility] Blood 08/27/2021 11:5 4 AM EST 08/27/2021 12:06 PM EST Narrative Resulting Agency Comment Spec In Lab Chon Snyder MD CHEMISTRY ORDERAB LES Performing Organization Address [facility] de Phone Number [facility] [place] [address] * Cryoglobulin (08/27/2021 11:54 AM EST) Pathologist [facility] Cryoglobulin See Note [facility] Comment: Cryoglobulins negative at 24 and 72 hours. Identification of cryoglobulins is dependent upon appropriate sample handling. False negative results may occur if the proper sample handling steps are not followed. This test was developed and its performance characteristics determined by [facility]. It has not been cleared or approved by the FDA. The laboratory is regulated under CLIA as qualified to perform high-complexity testing. This test is used for clinical purposes. It should not be regarded as investigational or for research. Blood 08/27/2021 11:5 4 AM EST 08/27/2021 12:03 PM EST Narrative Resulting Agency Comment Spec In Lab Chon Snyder MD CHEMISTRY ORDERAB LES Performing Organization Address [facility] de Phone Number [facility] [place] [address] * Proteinase-3 Antibody (08/27/2021 11:54 AM EST) Proteinase 3 Antibody <0.7 <=1.9 unit/mL [facility] Comment: Please note that as of 04/29/2021 that the method and reference ranges for this test have changed. The PR3 concentrations associated with this new tests produce values that are lower than the previous method. Interpret the results of this test in relation to the updated reference intervals. Blood 08/27/2021 11:5 4 AM EST 08/27/2021 2:02 PM EST Narrative Resulting Agency Comment Spec In Lab Chon Snyder MD IMMUNOLOGY ORDERA BLEMayur Performing Organization Address [facility] Co de Phone Number [facility] [place] [address] * Myeloperoxidase Ab (08/27/2021 11:54 AM EST) Pathologist [facility] Myeloperoxidase Antibody <0.3 <=3.4 unit/mL [facility] Comment: Please note that as of 04/29/2021 that the method and reference ranges for this test have changed. Please interpret the results of this test in relation to the updated reference intervals. Blood 08/27/2021 11:5 4 AM EST 08/27/2021 2:02 PM EST Narrative Resulting Agency Comment Spec In Lab Chon Snyder MD IMMUNOLOGY ORDERA DOMINGO Performing Organization Address [facility] Co de Phone Number [facility] [place] [address] * Cytoplasmic Neutrophilic Ab (08/27/2021 11:54 AM EST) Pathologist [facility] C-Anca (DECEMBER) Negative Negative [facility] Comment: Test Performed by: [facility] [place] [address] Neuropsychiatrist: Brando Lake M.D. Ph.D.; CLIA# [id number] P-Anca (DECEMBER) Negative Negative [facility] Comment: Negative for cANCA and pANCA patterns by immunofluorescence. ADDITIONAL INFORMATION This test was developed and its performance characteristics determined by [facility] in a manner consistent with CLIA requirements. This test has not been cleared or approved by the U.S. Food and Drug Administration. Test Performed by: [facility] [place] [address] Neuropsychiatrist: Brando Lake M.D. Ph.D.; [facility]# [id number] Blood 08/27/2021 11:5 4 AM EST 08/27/2021 2:32 PM EST Narrative Resulting Agency Comment Spec In Lab Chon Snyder MD LAB SEND OUT ORDE RABLES Performing Organization Address [facility] Co de Phone Number [facility] [place] [address] * Rheumatoid factor, quant (08/27/2021 11:54 AM EST) Rheumatoid Factor <10 <=14 IU/mL [facility] Blood 08/27/2021 11:5 4 AM EST 08/27/2021 12:06 PM EST Narrative Resulting Agency Comment Spec In Lab Chon Snyder MD CHEMISTRY ORDERAB LES Performing Organization Address [facility] de Phone Number [facility] [place] [address] * TAMIE (08/27/2021 11:54 AM EST) TAMIE Ab Screen Test ?Result ? Flag ??Unit ??RefValue Antinuclear Ab, HEp-2 ? <1:80 (Negative) ? <1:80 (Negative) ??Substrate, S ? ADDITIONAL INFORMATION --------- ?Method: Immunofluorescence using HEp-2 cellular substrate. ?Test Performed by: ?[facility] ?[address] [place] [address] ?Neuropsychiatrist: Brando Lake M.D. Ph.D.; CLIA# [id number] [facility] Blood 08/27/2021 11:5 4 AM EST 08/27/2021 2:32 PM EST Narrative Resulting Agency Comment Spec In Lab Chon Snyder MD LAB SEND OUT BYRON GUTHRIE [facility] [place] [address] * Extractable Nuclear Antigen (WALTER) Ab (08/27/2021 11:54 AM EST) WALTER Ab Test ?Result ? Flag ??Unit ??RefValue Ab to Extractable Nuclear Ag Eval,S ??SS-A/Ro Ab, IgG, S ?<0.2 ? U ? <1.0 (Negative) ??SS-B/La Ab, IgG, S ?<0.2 ? U ? <1.0 (Negative) ??Sm Ab, IgG, S ? <0.2 ? U ? <1.0 (Negative) ??SCHEDULE CHECKER Ab, IgG, S ?<0.2 ? U ? <1.0 (Negative) ??Scl 70 Ab, IgG, S ? <0.2 ? U ? <1.0 (Negative) ??Mere 1 Ab, IgG, S ? <0.2 ? U ? <1.0 (Negative) ?Test Performed by: ?[facility] ?[address] [place] [address] ?Neuropsychiatrist: Brando Lake M.D. Ph.D.; IA# [id number] [facility] Blood 08/27/2021 11:5 4 AM EST 08/27/2021 2:32 PM EST Narrative Resulting Agency Comment Spec In Lab Chon Snyder MD LAB SEND OUT BYRON GUTHRIE [facility] [place] [address] * Lyme IgG & IgM Antibody (08/27/2021 11:54 AM EST) Lyme Antibody Neg Neg [facility] Blood 08/27/2021 11:5 4 AM EST 08/28/2021 5:34 AM EST Narrative Resulting Agency Comment Spec In Lab Chon Snyder MD IMMUNOLOGY ORDERA BLES Performing Organization Address [facility] Co de Phone Number [facility] [place] [address] * Hepatitis B DNA, quantitative, PCR (08/27/2021 11:54 AM EST) Hepatitis B DNA, quantitative, PCR Result: <10 IU/mL (Target Not Detected) Indication for Study: HBV Infection Analysis: Mantilla RealTime HBV assay is an in vitro polymerase chain reaction (PCR) assay for the quantitation of Hepatitis B Virus (HBV) DNA in human serum or plasma (EDTA) from chronically HBV-infected individuals. Sample: plasma (0.7 mL minimum volume) Method: Mantilla RealTime HBV Assay Linear Range: 10 IU/mL ? 1,000,000,000 IU/mL Note: The Mantilla RealTime HBV Assay has been approved by the U.S. Food and Drug Administration. [facility] Blood 08/27/2021 11:5 4 AM EST 08/28/2021 4:42 AM EST Narrative Resulting Agency Comment Spec In Lab Chon Snyder MD MOLECULAR ORDERAB LES Performing Organization Address [facility] de Phone Number [facility] [place] [address] * Hepatitis B Surface Antibody (08/27/2021 11:54 AM EST) Hepatitis B Surface Antibody, Quantitative <3.5 IU/L [facility] Comment: HepB Surface Ab Quant: Unvaccinated: < 8.5 IU/L Vaccinated: > 11.5 IU/L Hepatitis B Surface Antibody Negative [facility] Comment: Patient is presumed to be not vaccinated or immune to HBV infection. Expected Results: Vaccinated: Positive Unvaccinated: Negative Blood 08/27/2021 11:5 4 AM EST 08/27/2021 12:06 PM EST Narrative Resulting Agency Comment Spec In Lab Chon Snyder MD CHEMISTRY ORDERAB LES Performing Organization Address [facility]/ZIP Co de Phone Number [facility] [place] [address] * Hepatitis C Antibody (08/27/2021 11:54 AM EST) Hepatitis C Antibody Negative Negative [facility] Blood 08/27/2021 11:5 4 AM EST 08/27/2021 12:06 PM EST Narrative Resulting Agency Comment Spec In Lab Chon Snyder MD CHEMISTRY ORDERAB LES Performing Organization Address City/[facility]/ZIP Co de Phone Number [facility] [place] [address] * HIV Screen, 4th Generation ([facility]/CGP/APD/NLH) (08/27/2021 11:54 AM EST) HIV Ab/Ag Screen Negative Negative [facility] Comment: This 4th Generation HIV test screens for the presence of the HIV-1 p24 antigen as well as antibodies reactive against HIV-1 and HIV-2. A negative screen does not rule out an acute HIV infection. If acute HIV infection is suspected, testing should be repeated in 2 - 3 weeks or HIV nucleic acid testing performed. HIV Comment Low Risk of HIV Infection [facility] Blood 08/27/2021 11:5 4 AM EST 08/27/2021 12:06 PM EST Narrative Resulting Agency Comment Spec In Lab Chon Snyder MD CHEMISTRY ORDERAB LES Performing Organization Address City/[facility]/ZIP Co de Phone Number [facility] [place] [address] * Free Light Chains, Serum (08/27/2021 11:54 AM EST) [place] Free Light Chain 1.76 0.72 - 2.75 mg/dL [facility] Lambda Free Light Chain 1.10 0.57 - 2.15 mg/dL [facility] [place]/Lambda FLC Ratio 1.6000 0.4000 - 2.5800 [facility] Blood 08/27/2021 11:5 4 AM EST 08/27/2021 12:06 PM EST Narrative Resulting Agency Comment Spec In Lab Chon Snyder MD CHEMISTRY ORDERAB LES Performing Organization Address City/[facility]/ZIP Co de Phone Number [facility] [place] [address] * Protein Electrophoresis, serum (08/27/2021 11:54 AM EST) Total Prot Electrophoresis 6.9 6.1 - 8.0 g/dL [facility] Albumin Electrophoresis 4.64 3.60 - 6.00 g/dL [facility] Alpha 1 Globulin 0.19 0.10 - 0.30 g/dL [facility] Alpha 2 Globulin 0.73 0.40 - 0.90 g/dL [facility] Beta Globulin 0.59 0.50 - 1.00 g/dL [facility] Gamma Globulin 0.75 0.50 - 1.30 g/dL [facility] M1 Band None Detected None Detected [facility] Blood 08/27/2021 11:5 4 AM EST 08/27/2021 12:06 PM EST Narrative Resulting Agency Comment Spec In Lab Chon Snyder MD CHEMISTRY ORDERAB LES Performing Organization Address [facility] Co de Phone Number [facility] [place] [address] * (ABNORMAL) C4 Complement (08/27/2021 11:54 AM EST) Complement C4 49(H) 10 - 40 mg/dL [facility] Blood 08/27/2021 11:5 4 AM EST 08/27/2021 12:06 PM EST Narrative Resulting Agency Comment Spec In Lab Chon Snyder MD CHEMISTRY ORDERAB LES Performing Organization Address City/[facility]/ZIP Co de Phone Number [facility] [place] [address] * C3 Complement (08/27/2021 11:54 AM EST) Complement C3 149 90 - 180 mg/dL [facility] Blood 08/27/2021 11:5 4 AM EST 08/27/2021 12:06 PM EST Narrative Resulting Agency Comment Spec In Lab Chon Snyder MD CHEMISTRY ORDERAB LES Performing Organization Address City/[facility]/ZIP Co de Phone Number [facility] [place] [address] * Sedimentation rate (08/27/2021 11:54 AM EST) Pathologist [facility] Sedimentation Rate Automated 22 3 - 46 mm/hr [facility] Comment: Effective July 25, 2019 new capillary photometric technology has resulted in a change in reference ranges. It is recommended that each ESR result be reviewed with its own age appropriate reference range. Blood 08/27/2021 11:5 4 AM EST 08/27/2021 12:06 PM EST Narrative Resulting Agency Comment Spec In Lab Chon Snyder MD HEMATOLOGY ORDERA BLES Performing Organization Address City/[facility]/ZIP Co de Phone Number [facility] [place] [address] * CRP, acute inflammation (08/27/2021 11:54 AM EST) C-Reactive Protein <3.0 <=4.9 mg/L [facility] Blood 08/27/2021 11:5 4 AM EST 08/27/2021 12:06 PM EST Narrative Resulting Agency Comment Spec In Lab Cohn Snyder MD CHEMISTRY ORDERAB LES Performing Organization Address City/[facility]/ZIP Co de Phone Number [facility] [place] [address] documented in this encounter Visit Diagnoses Diagnosis Neuropathy Mononeuritis of unspecified site Muscle cramps Cramp of limb documented in this encounter Care Teams Wood Fence Installer Relationship Specialty Start Date End Date Andrew Novak, [place] [address] [facility] [address] [place] [address] PCP - General Family Medicine 08/15/20 09/18/23 documented as of this encounter
--- OUTSIDE RECORDS SUMMARY | 2024-03-29 03:35 | XMS_ITS | Encounter Summary ---
Author Organization [facility] [place] [address] Care Team Providers Care Rolloff Truck Driver Name Role Phone Unavailable Primary Care Provider Unavailabl e Reason for Visit * Reason Comments Medication Management Patient Education Encounter Details Date Type Department Care Team ([facility] st Contact Info) Description 02/08/2020 Specialty [place] [phone] Gilmer Martins RPH Social History Tobacco Use Types Packs/Day [...] as of this encounter Progress Notes * Gilmer Martins RPH - 02/08/2020 1:44 PM EDT Specialty Pharmacy Consultation; Gilmer Martins RPH Comprehensive Medication Management (CMM): Specialty Consult, Opt Out Ginger Amador Diagnosis: hyperlipidemia Therapy Start Date: 12/29/18 Contact in person or via telephone: telephone Ms. Ginger Amador is a 84 y.o. (1935) female who was contacted in regard to specialty medication. Spoke with patient regarding praluent. A review of the medication therapy was performed. The medication was not as scheduled, and all medication related questions and concerns were addressed[facility] patient [facility] Days per her request. Is the patient willing to proceed with the Clinical Assessment? No Summary and Recommendations: Ginger declined a consult today, and even though she would have been due for a refill, she declined arefill also. It appears she doesn't want to use this medication, and her adherence has dropped off.Last fill I enrolled her in [employer] copay assistance removing financial barriers to adherence. She states she has one pen left, and didn't want another call back to facilitate a refill for another4 weeks. She stated she wants to decide whether she wants to continue with treatment. I will message the cardiology clinic about Ginger's non adherence to see if they want to contact her about possible alternatives. Fill history indicates a total of 4 pens (112 total days) dispensed since July 2019. At best this correlates to approximately 58% adherence. Economic Assessment: Patient is agreeable to medication copay: Yes Copay Amount: $0 Day Supply: 28 Date Needed: Should be due 01/31 based on last fill. Therapy Assessment: Appropriate Therapy: Yes Current Medication Dosing/Route/Frequency: praluent 75mg/mL inject the contents of one pen every 28days Additional equipment/supplies required: no Care Plan Reviewed and Approved by Pharmacist : Yes Medications Reviewed: Yes Medications reconciled: No Allergies Reviewed:Yes Allergies reconciled: No Pharmacist follow-up needed: Yes Informed patient of specialty pharmacy services: Yes -Patient will be provided with welcome packet: Yes Date to be provided: 01/18/2019 Delivery Method: mail -Patient returned signed Rights & Responsibilities: Yes Date to be provided: 01/18/2019 Delivery Method: mail -Patient is aware a licensed pharmacist is [...] note) for provider review and follow up. Gilmer Martins RPH 02/08/20 1:45 PM documented in this encounter Plan of Treatment Not on file documented as of this encounter Goals Goal Patient Goal Type Associated Problems Recent Progress Patient-Stated? Author LDL CALC < 70 Result Component No Michael Mckinnon RPH documented as of this encounter Visit Diagnoses Not on filedocumented in this encounter
--- OUTSIDE RECORDS SUMMARY | 2024-03-29 03:35 | XMS_ITS | Encounter Summary ---
[facility] [place] [address] Care Team Providers Care Edge Burnisher Name Role Phone Unavailable Primary Care Provider Unavailabl e Reason for Visit * Reason Comments Medication Management Patient Education Encounter Details Date Type Department Care Team ([facility] st Contact Info) Description 04/18/2020 Specialty Pharmacy [place] [phone] Gilmer Martins [facility] Social History Tobacco Use Types [...] Progress Notes * Gilmer Martins RPH - 04/18/2020 2:45 PM EDT Clinical Management Plan: Refill Specialty Pharmacy Consultation; Gilmer Martins [facility] Comprehensive Medication Management (CMM) Ginger Amador Ms. Ginger Amador is a 84 y.o. (1935) female who was contacted in regard to a specialty medication refill reminder. Spoke with patient regarding praluent. A review of the medication therapy wasperformed. The medication was Refilled as scheduled, and all medication related questions and concerns were addressed. The specialty pharmacy staff will follow up with the patient 5-7 days prior to next refill. I offered her a link to administration video, she declined this. She also did not feel that the praluent syringe would be easier to administer. She states she is back on track for adherence. Was a change made to the Care Plan: no If yes, should the medication be held: No Assessment and Recommendations: Title Type of Medication Management: chronic disease management, targeted medication review Referred By: provider Recipient: beneficiary Provider: plan sponsor pharmacist Visit Type: [facility] Follow-up Method of Contact: by telephone Cognitive Ability: good Cognitive Impairment Status Verified this Year: no Allergies and Drug intolerance: Allergies Allergen Reactions ??? Bacitracin ??? Gabapentin Other (See Comments) [place] like a zombie ??? Gramicidin D ??? Ibuprofen ??? Lidocaine ??? Neomycin Sulfate ??? Neosporin [Hydrocortisone] ??? Polymyxin B ??? Polymyxin B Sulfate ??? Soy ??? Fdzkguo-Aut-Ivn Reductase Inhibitors Other (See Comments) Muscle soreness/weakness, fatigue ??? Sulfa (Sulfonamide Antibiotics) ??? Wheat Nausea And Vomiting Extreme fatigue and sleepiness Medication Reconciliation Discrepancies (compared to [facility] med list) -none New medications: no New medical conditions: no New allergies: no Adherence: Medication Adherence Patient reported X missed doses in the last month: 0 Any gaps in refill history greater than 2 weeks in the last 3 months: yes Demonstrates understanding of importance of adherence: no Informant: patient Reliability of informant: fairly reliable Provider-estimated medication adherence level: 51-75% Reasons for non-adherence: no problems identified Adherence tools used: directed education Support network for adherence: healthcare provider Confirmed plan for next specialty medication refill: delivery by pharmacy Refills needed for supportive medications: not needed Are you experiencing any side effects from your medications? no Pt understands no changes to current drug regimen were made at the appointment and that [facility] is providing recommendations (summary located at top of note) for provider review and follow up. Gilmer Martins RPH 04/18/20 2:47 PM documented in this encounter Plan of Treatment Not on file documented as of this encounter Goals Goal Patient Goal Type Associated Problems Recent Progress Patient-Stated? Author LDL CALC < 70 Result Component No Michael Mckinnon RP documented as of this encounter Visit Diagnoses Not on filedocumented in this encounter
--- OUTSIDE RECORDS SUMMARY | 2024-03-29 03:35 | XMS_ITS | Encounter Summary ---
Author Organization [facility] [address] Care Team Providers Care Store Standards Associate Name Role Phone Unavailable Primary Care Provider Unavailabl e Reason for Visit * Reason Comments Medication Management Medication Refill Encounter Details Date Type Department Care Team ([facility] st Contact Info) Description 07/31/2019 Specialty [place] [phone] Michael Mckinnon, [facility] Social History Tobacco Use Types Packs/Day [...] as of this encounter Progress Notes * Michael Mckinnon [facility] - 07/31/2019 12:41 PM EST Clinical Management Plan: Refill Specialty Pharmacy Consultation; Michael Mckinnon [facility] Comprehensive Medication Management (CMM) Ginger Amador Ms. Ginger Amador is a 83 y.o. (1935) female who was contacted in regard to a specialty medication refill reminder. Spoke with patient regarding Praluent 75 mg. A review of the medication therapy was performed. The medication was Refilled as scheduled, and all medication related questions andconcerns were addressed. The specialty pharmacy staff will follow up with the patient 5-7 days prior to next refill. Was a change made to the Care Plan: yes Pt now using only once a month due to cost. If yes, should the medication be held: No Assessment and Recommendations: Title Allergies and Drug intolerance: Allergies Allergen Reactions ??? Bacitracin ??? Gabapentin Other (See Comments) [place] like a zombie ??? Gramicidin D ??? Ibuprofen ??? Lidocaine ??? Neomycin Sulfate ??? Neosporin [Hydrocortisone] ??? Polymyxin B ??? Polymyxin B Sulfate ??? Soy ??? Bytrcvj-Mpv-Aza Reductase Inhibitors Other (See Comments) Muscle soreness/weakness, fatigue ??? Sulfa (Sulfonamide Antibiotics) ??? Wheat Nausea And Vomiting Extreme fatigue and sleepiness Medication Reconciliation Discrepancies (compared to [facility] med list) -None New medications: no New medical conditions: no New allergies: no Adherence: Medication Adherence Adherence tools used: directed education Are you experiencing any side effects from your medications? no Pt understands no changes to current drug regimen were made at the appointment and that [facility] is providing recommendations (summary located at top of note) for provider review and follow up. Michael Mckinnon [facility] 07/31/19 12:44 PM Electronically signed by Michael Mckinnon [facility] at 07/31/2019 12:45 PM EST * Michael Mckinnon [facility] - 07/31/2019 12:41 PM EST Specialty Pharmacy Consultation; Michael Mckinnon [facility] Comprehensive Medication Management (CMM): Specialty Consult, Opt Out Ginger Amador Diagnosis: Hyperlidpidemia Therapy Start Date: 12/29/18 Contact in person or via telephone: yes Ms. Ginger Amador is a 83 y.o. (1935) female who was contacted in regard to specialty medication. Spoke with patient regarding Praluent. A review of the medication therapy was performed. The medication was refilled as scheduled, and all medication related questions and concerns were addressed. The specialty pharmacy staff will follow up with the patient 5-7 days prior to next refill. Is the patient willing to proceed with the Clinical Assessment? No Summary and Recommendations: Pt elected to opt out of this 6 month f/up call. Economic Assessment: Patient is agreeable to medication copay: Yes Copay Amount: $ 158.95 Day Supply: 56 Date Needed: 12/19/19 ?? Therapy Assessment: ?? Appropriate Therapy: Yes Current Medication Dosing/Route/Frequency: Praluent 75 mg SQ every 28 days. (Pt u/to afford q 14 day dosing).?? Additional equipment/supplies required: no Care Plan Reviewed and Approved by Pharmacist : ? Yes ?? Medications Reviewed: Yes Medications reconciled: Yes Allergies Reviewed:Yes Allergies reconciled: Yes Informed patient of specialty pharmacy services: Yes -Patient will be provided with welcome packet: Yes Date to be provided: 01/18/2019 Delivery Method: Mail -Patient returned signed Rights & Responsibilities: Yes [...] note) for provider review and follow up. Michael Mckinnon RPH 07/31/19 1:52 PM documented in this encounter Plan of Treatment Not on file documented as of this encounter Visit Diagnoses Not on filedocumented in this encounter
--- OUTSIDE RECORDS SUMMARY | 2024-03-29 03:35 | XMS_ITS | Encounter Summary ---
[place] [address] Care Team Providers Care Catering Cook Name Role Phone Unavailable Primary Care Provider Unavailabl e Reason for Visit * Reason Comments Medication Management Encounter Details Date Type Department Care Team ([facility] st Contact Info) Description 06/08/2019 Specialty [place] [address] Pilo Griffin [facility] Social History Tobacco Use Types Packs/Day Years Used Date Smoking Tobacco: Never Smokeless Tobacco: Never Alcohol Use Standard Drinks/Week Comments Yes 0 (1 standard drink = 0.6 oz pur e alcohol) Social Sex and Gender Information Value Date Recorded Sex Assigned at Not on file Gender Identity Not on file Sexual Orientation Not on file documented as of this encounter Progress Notes * Pilo Griffin RPH - 06/08/2019 12:44 PM EDT Clinical Management Plan: Refill Specialty Pharmacy Consultation; Pilo Griffin [place] Comprehensive Medication Management (CMM) Ginger Mario Perry Ms. Ginger Amador is a 83 y.o. (1935) female who was contacted in regard to a specialty medication refill reminder. Spoke with patient regarding Praluent. A review of the medication therapy wasperformed. The medication was Refilled as scheduled, and all medication related questions and concerns were addressed. The specialty pharmacy staff will follow up with the patient 5-7 days prior to next refill. Was a change made to the Care Plan: no Assessment and Recommendations: Title Allergies and Drug intolerance: Allergies Allergen Reactions ??? Bacitracin ??? Gabapentin Other (See Comments) [place] like a zombie ??? Gramicidin D ??? Ibuprofen ??? Lidocaine ??? Neomycin Sulfate ??? Neosporin [Hydrocortisone] ??? Polymyxin B ??? Polymyxin B Sulfate ??? Soy ??? Qrdxvpx-Oss-Wyj Reductase Inhibitors Other (See Comments) Muscle soreness/weakness, fatigue ??? Sulfa (Sulfonamide Antibiotics) ??? Wheat Nausea And Vomiting Extreme fatigue and sleepiness Medication Reconciliation Discrepancies (compared to [facility] med list) - none New medications: no New medical conditions: no New allergies: no Adherence: Medication Adherence Patient reported X missed doses in the last month: 2 Provider-estimated medication adherence level: 26-50% Reasons for non-adherence: no problems identified Adherence tools used: directed education Are you experiencing any side effects from your medications? no Pt understands no changes to current drug regimen were made at the appointment and that [facility] is providing recommendations (summary located at top of note) for provider review and follow up. Pilo Griffin RPH 06/08/19 12:46 PM documented in this encounter Plan of Treatment Not on file documented as of this encounter Visit Diagnoses Not on filedocumented in this encounter
--- OUTSIDE RECORDS SUMMARY | 2024-03-29 03:35 | XMS_ITS | Encounter Summary ---
[place] [address] Care Team Providers Care Cashier Credit Name Role Phone Andrew Novak APRN Primary Care Provider [phone]- [phone] Reason for Visit * Reason Comments Medication Refill Encounter Details Date Type Department Care Team ([facility] st Contact Info) Description 10/01/2020 Specialty Pharmacy [place] [phone] Tracy Sanchez [place] Social History Tobacco Use [...] Progress Notes * Tracy Sanchez RPH - 10/01/2020 1:00 PM EST Clinical Management Plan: Refill Specialty Pharmacy Consultation; Tracy Sanchez RPH Comprehensive Medication Management (CMM) Ginger Merinomicki Ms. Ginger Amador is a 84 y.o. [...] patient 5-7 days prior to next refill. Ginger says she does not need her refill until the second week of October and would like us to ship to her on October 15 which was set up. Ginger acknowledges that she should change her dosing frequency to every 21 days. Was a change made to the Care Plan: yes - MD changed frequency to every 21 day injections If yes, should the medication be held: No Assessment and Recommendations: Title Type of Medication Management: chronic disease management, targeted medication review Referred By: provider Recipient: beneficiary Provider: plan sponsor pharmacist [place] [facility] [place] Method of Contact: by telephone Cognitive Ability: good Cognitive Impairment Status Verified this Year: no Allergies and Drug intolerance: Allergies Allergen Reactions ??? Bacitracin ??? Gabapentin Other (See Comments) [place] like a zombie ??? Gramicidin D ??? Ibuprofen ??? Lidocaine ??? Neomycin Sulfate ??? Neosporin [Hydrocortisone] ??? Polymyxin B ??? Polymyxin B Sulfate ??? Soy ??? Iuodkjz-Wsq-Jcc Reductase Inhibitors Other (See Comments) Muscle soreness/weakness, fatigue ??? Sulfa (Sulfonamide Antibiotics) ??? Wheat Nausea And Vomiting Extreme fatigue and sleepiness Medication Reconciliation Discrepancies (compared to [facility] med list) -none Specialty Pharmacy Refill Questionnaire Refill Questionnaire 10/01/2020 What is the name of the specialty medication you are refilling? Praluent Are you taking any new medications? No Any new medical condition? No Any new allergies? No Any new side effects that are bothersome? No Adherence: Medication Adherence Patient reported X missed doses in the last month: 0 Any gaps in refill history greater than 2 weeks in the last 3 months: no Demonstrates understanding of importance of adherence: yes Informant: patient Reliability of informant: reliable Provider-estimated medication adherence level: 90-100% Reasons for non-adherence: no problems identified Adherence tools used: directed education Support network for adherence: healthcare provider Confirmed plan for next specialty medication refill: delivery by pharmacy Refills needed for supportive medications: not needed Pt understands no changes to current drug regimen were made at the appointment and that [facility] is providing recommendations (summary located at top of note) for provider review and follow up. Tracy Sanchez RPH 10/01/20 1:02 PM documented in this encounter Plan of Treatment Not on file documented as of this encounter Goals Goal Patient Goal Type Associated Problems Recent Progress Patient-Stated? Author LDL CALC < 70 Result Component No Michael Mckinnon, MARCELO documented as of this encounter Visit Diagnoses Not on filedocumented in this encounter Care Teams Cashier Credit Relationship Specialty Start Date End Date Andrew Novak APRN [address] [place] [address] PCP - General Family Medicine 08/15/20 09/18/23 documented as of this encounter
--- OUTSIDE RECORDS SUMMARY | 2024-03-29 03:35 | XMS_ITS | Encounter Summary ---
[place] [address] Care Team Providers Care Parts Finisher Name Role Phone Andrew Novak APRN Primary Care Provider [phone]- [phone] Encounter Details Date Type Department Care Team (Late st Contact Info) Description 10/30/2021 Refill Cardiology at [address] [phone] Nellie Mclaughlin MD [facility] [place] [address] Social History Tobacco Use Types Packs/Day Years [...] 70 Result Component No Michael Mckinnon, [facility] documented as of this encounter Visit Diagnoses Diagnosis Hyperlipidemia, unspecified hyperlipidemia type documented in this encounter Care Teams Parts Finisher Relationship Specialty Start Date End Date Andrew Novak APRN [address] [place] [address] PCP - General Family Medicine 08/15/20 09/18/23 documented as of this encounter
--- OUTSIDE RECORDS SUMMARY | 2024-03-29 03:35 | XMS_ITS | Encounter Summary ---
[place] [address] Care Team Providers Care Public Relations Sales Marketing Name Role Phone Unavailable Primary Care Provider Unavailabl e Encounter Details Date Type Department Care Team (Late st Contact Info) Description 04/09/2019 Notes [place] [address] Sherita Joy Social History Tobacco Use Types Packs/Day Years [...] of this encounter Progress Notes * Sherita Joy - 04/09/2019 4:23 PM EDT Medication Assistance Program-Appl to pt. Per request I mailed the application for Praluent to Ms. Amador for her to complete, sign, and return to me with proof of income. I will follow through with the application once everything is returned to me.[id number] documented in this encounter Plan of Treatment Not on file documented as of this encounter Visit Diagnoses Not on filedocumented in this encounter
--- OUTSIDE RECORDS SUMMARY | 2024-03-29 03:35 | XMS_ITS | Encounter Summary ---
[place] [address] Care Team Providers Care Rotary Driller Name Role Phone Andrew Novak APRN Primary Care Provider +1- [phone] Reason for Visit * Reason Onset Date Comments Questions 02/25/2022 Encounter Details Date Type Department Care Team ([facility] st Contact Info) Description 02/25/2022 Telephone Cardiology at [address] [phone] Queta Thomas RN Questions Social History Tobacco Use Types Packs/Day Years [...] encounter Miscellaneous Notes * Telephone Encounter - Queta Thomas RN - 02/25/2022 4:52 PM EDT Pt contacted to let her know that Dr Mclaughlin is no longer seeing pt's at . Pt has seen Dr Culp would like to arrange to continue care with her. Message forwarded to the schedulers to contact the pt for next visit with Dr Jung. * Telephone Encounter - Queta Thomas RN - 02/25/2022 4:47 PM EDT ----- Message from Queta Thomas RN sent at 02/19/2022 7:23 AM EDT ----- Regarding: FW: Re: Ezetia ----- Message ----- From: Ginger Amador Sent: 02/18/2022 11:00 PM EDT To: [facility] Cardiology Nurse Subject: Re: Ezetia I had a new primary care apt (my Dr retired, assigned a new one who is also leaving this month, so will have another new one, don't know who.) and he suggested we may try not taking the Ezetia for a month as it may be what is making my muscles so weak. I have lost a lot of strength. After a bit of reading I decided to not take it for January. I should get blood tests now to see where the Choloresterol is at this point. And I also need an apt w/you to renew my Shot prescript. If you would send a blood work request either to me or [facility] I will get that done and make an apt with you at [facility]. It has been a while. Sorry I did this w/o contacting you, but ? I am definitely feeling better, but not much stronger. Looking forward to your response, Thank you, Ginger Amador documented in this encounter Plan of Treatment Not on file documented as of this encounter Goals Goal Patient Goal Type Associated Problems Recent Progress Patient-Stated? Author LDL CALC < 70 Result Component No Michael Mckinnon, [facility] documented as of this encounter Visit Diagnoses Not on filedocumented in this encounter Care Teams Rotary Driller Relationship Specialty Start Date End Date Andrew Novak APRN [address] [place] [address] PCP - General Family Medicine 08/15/20 09/18/23 documented as of this encounter
--- OUTSIDE RECORDS SUMMARY | 2024-03-29 03:35 | XMS_ITS | Encounter Summary ---
Author [place] [address] Care Team Providers Care Rn Neurology Name Role Phone Andrew Novak APRN Primary Care Provider +1- [phone] Encounter Details Date Type Department Care Team (Latest Contact Info) Description 09/19/2020 2:20 PM EST TH Visit (TeleHealth) Cardiology at [address] [phone] Marcello Stephens MD [facility] [place] [address] Coronary artery disease involving [place] coronary artery, angina presence unspecified, unspecified whether [place] or transplanted heart; Hyperlipidemia, unspecified hyperlipidemia type; Hyperglycemia Social History Tobacco Use Types Packs/Day Years Used Date Smoking Tobacco: Never Smokeless Tobacco: Never Alcohol Use Standard Drinks/Week Comments Yes 0 (1 standard drink = 0.6 oz pur e alcohol) Social Sex and Gender Information Value Date Recorded Sex Assigned at Not on file Gender Identity Not on file Sexual Orientation Not on file documented as of this encounter Progress Notes * Marcello Stephens MD - 09/19/2020 2:20 PM EST [facility] Lipid Clinic-Follow Up Visit ID/PM Ginger is a 84 y.o. followed by Jacob Foley DO with the following problems: Patient Active Problem List Diagnosis Code ??? 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 Seborrheic keratosis L82.1 ??? Actinic keratosis L57.0 ??? CAD (coronary artery disease) I25.10 ??? Hypertension I10 ??? 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 Asthma J45.909 ??? LUNA (dyspnea on exertion) R06.00 ??? Muscle cramps R25.2 Exercise; Walking 15 minutes 3 times a week and blaire chi Present Illness Ginger Amador is seen to follow up on her dyslipidemia. Since I last saw her last in the summer 2019 she had her first Covid shot -Moderna. Index finger on left hand still feels funny - can't mixing picker tender anything. Ginger has been taking ezetimibe daily but freely admits that it is often every 5 weeks that she takes her alirocumab. ROS General feels energetic but when she gets up has little balance or strength - but able to shovel Cardiac: No chest pressure Medications Current Outpatient Medications Medication Sig Dispense Refill ??? cholecalciferol, Vitamin D3, 10 mcg (400 unit) Capsule Take by mouth. Indications: one daily ??? alirocumab 75 mg/mL Pen Injector Inject 75 mg subcutaneously every 28 days. 3 mL 3 ??? ezetimibe (Zetia) 10 mg Tablet Take 1 tablet by mouth daily. 90 tablet 3 ??? nitroGLYcerin (NITROSTAT) 0.4 mg Tablet, Sublingual Place 1 tablet under the tongue every 5 minutes as needed for Chest pain. 90 tablet 12 ??? spironolactone (ALDACTONE) 25 mg Tablet Take [...] No current facility-administered medications for this visit. Allergies Bacitracin, Gabapentin, Gramicidin d, Ibuprofen, Lidocaine, Neomycin sulfate, Neosporin [hydrocortisone], Polymyxin b, Polymyxin b sulfate, Soy, Inntagf-hvz-klz reductase inhibitors, Sulfa (sulfonamide antibiotics), and Wheat Physical Exam not performed telehealth Labs Total cholesterol 157 mg/dL Triglycerides 77 mg/dL HDL cholesterol 55 mg/dL LDL cholesterol 87 mg/dL Hemoglobin A1c 6.2% Assessment Ginger's lipids reflect her improved exercise (triglycerides and HDL are both improved) but also reflect taking the alirocumab less frequently than prescribed. She was already taking the alirocumab every 28 days but she seems to have stretched it out further. Her best results came when she was takingit every 21 days. I have asked her to resume taking it every 21 days and will alter her prescription. She was encouraged to continue with the ezetimibe. We talked at length about her response/side effect to the Covid vaccine. At her second dose she will have an opportunity to document her side effect. These are being collected and sent to the FDA. Itsounds as though she truly does have some difficulty moving her index finger and does sound as though there is some temporal correlation between the change in the feeling in her index finger and the vaccine. I have also encouraged her to let Dr. Foley know about this. Nonetheless, I have urged her to go forward with getting her second vaccine and she wants to do this. Ginger says that her blood pressure is still not where she would like it to be. She had a single appointment with Dr. Anisha Jung but somehow follow-up was not scheduled. I will asked Pati my gusset stitcher to make sure that that Ginger gets scheduled with Dr. Jung. Plan ?? Medication changes: continue ezetimibe and resume alirocumab 75 mg every 21 days ?? Investigations:labs and a visit in 6 months ?? Counseling: I explained my impression and answered all Ginger's questions. Follow up 6 months MARCELLO STEPHENS MD 09/19/2020 CC: Jacob Foley DO documented in this encounter Plan of Treatment Scheduled Orders Name Type Priority Associated Diagnoses Orde r Schedule Glucose, fasting Lab Routine Hyperglycemia Expected: 03/19/2021, Expires: 03/19/2022 Hemoglobin A1c Lab Routine Hyperglycemia Expected: 03/19/2021, Expires: 03/19/2022 documented as of this encounter Goals Goal Patient Goal Type Associated Problems Recent Progress Patient-Stated? Author LDL CALC < 70 Result Component No Michael Mckinnon, [facility] documented as of this encounter Results * Lipid Panel (Reflex Direct LDL) (08/27/2021 11:54 AM EST) Cholesterol, Total 111 mg/dL [facility] Comment: Lower Risk: <200 mg/dL Average Risk: 200-239 mg/dL Higher Risk: >ji=584 mg/dL Triglyceride 94 mg/dL [facility] Comment: Average Risk/Lower Risk: <150 mg/dL Borderline High Risk: 150-199 mg/dL High Risk: 200-499 mg/dL Very High Risk: >pa=125 mg/dL HDL Cholesterol 54 mg/dL [facility] Comment: Males: ?? Higher Risk: <40 mg/dL Females: ?? Higher Risk: <50 mg/dL LDL Cholesterol 38 mg/dL [facility] Comment: Lowest Risk: <100 mg/dL Lower Risk: 100-129 mg/dL Borderline High Risk: 130-159 mg/dL High Risk: 160-189 mg/dL Very High Risk: >oo=124 mg/dL Cholesterol/HDL Ratio 2.1 ratio [facility] Lipid Interpretation See Note [facility] Comment: Lipid management should be guided by a patient? s ASCVD risk, goals and preferences. ACC/AHA Guidelines recommend high intensity statin if clinical ASCVD or LDL greater than or equal to 190 mg/dL. http://Knodiumurl.com/RYE-DKW-Mpjtwhrlw Adults aged 40-75 with LDL 70-189 mg/dL should have their 10 year ASCVD risk estimated with the ACC/AHA ASCVD risk collision estimator http://tools.acc.org/UYNVM-Rghl-Afuggpnau/ Statin should be discussed if risk greater than or equal to 7.5% in non-diabetics. With diabetes, moderate intensity statin is recommended if risk less than 7.5%, high intensity if risk greater than or equal to 7.5%. Annual lipid monitoring on statins is not necessary. Evaluate secondary causes of Triglycerides greater than 500 mg/dL or LDL greater than 190 mg/dL: See table 6 of ACC/AHA Guideline. Lifestyle modification is a critical component of ASCVD risk reduction. Blood 08/27/2021 11:5 4 AM EST 08/27/2021 12:06 PM EST Narrative Resulting Agency Comment Spec In Lab Marcello Stephens MD CHEMISTRY ORDERABLES [facility] [place] [address] documented in this encounter Visit Diagnoses Diagnosis Coronary artery disease involving [place] coronary artery, angina presence unspecified, unspecified whether [place] or transplanted heart Hyperlipidemia, unspecified hyperlipidemia type Hyperglycemia Other abnormal glucose documented in this encounter Care Teams Rn Neurology Relationship Specialty Start Date End Date Andrew Novak APRN [address] [place] [address] PCP - General Family Medicine 08/15/20 09/18/23 documented as of this encounter
--- OUTSIDE RECORDS SUMMARY | 2024-03-29 03:35 | XMS_ITS | Encounter Summary ---
Author Organization [facility] [place] [address] Care Team Providers Care Tire Fabric Inspector Name Role Phone Unavailable Primary Care Provider Unavailabl e Reason for Visit * Reason Comments Medication Management Medication Refill Encounter Details Date Type Department Care Team ([facility] st Contact Info) Description 11/20/2019 Specialty Pharmacy [place] [phone] Michael Mckinnon, [facility] Social History Tobacco Use Types Packs/Day [...] this encounter Progress Notes * Michael Mckinnon [facility] - 11/20/2019 11:42 AM EDT Clinical Management Plan: Refill Specialty Pharmacy Consultation; Michael Mckinnon [facility] Comprehensive Medication Management (CMM) Ginger Mario Perry Ms. Ginger Amador is a 83 y.o. (1935) female who was contacted in regard to a specialty medication refill reminder. Spoke with patient regarding Praluent. A review of the medication therapy wasperformed. The medication was NOTRefilled as scheduled, and all medication related questions and concerns were addressed. The specialty pharmacy staff will follow up with the patient 5-7 days prior to next refill. Rx NOT refilled. Pt has no income sec/to COVID situation. She is only using once a month & evenat that, she skipped September's injection. She is also having trouble with the device, and cannot consistently get it to work for her. Long discussion about all of this. She has a friend who is an RNwho is giving her some help with admin, but is reluctant due to legal concerns. I think I convinced her to follow up with the MAP program. This was initiated for her in the recentpast, but she states she did not follow through. I provided her with their phone # today, and THINKI convinced her it would be worth her while to give them a call. Was a change made to the Care Plan: yes - noncompliance. If yes, should the medication be held: No Assessment and Recommendations: Title Type of Medication Management: targeted medication review Referred By: provider Recipient: beneficiary Provider: plan sponsor pharmacist Visit Type: [facility] Follow-up Method of Contact: by telephone Cognitive Ability: good Cognitive Impairment Status Verified this Year: no Allergies and Drug intolerance: Allergies Allergen Reactions ??? Bacitracin ??? Gabapentin Other (See Comments) [place] like a zombie ??? Gramicidin D ??? Ibuprofen ??? Lidocaine ??? Neomycin Sulfate ??? Neosporin [Hydrocortisone] ??? Polymyxin B ??? Polymyxin B Sulfate ??? Soy ??? Oshrmtc-Sbd-Qdk Reductase Inhibitors Other (See Comments) Muscle soreness/weakness, fatigue ??? Sulfa (Sulfonamide Antibiotics) ??? Wheat Nausea And Vomiting Extreme fatigue and sleepiness Medication Reconciliation Discrepancies (compared to [facility] med list) -None. But pt is not being routinely compliant with Praluent. New medications: no New medical conditions: no New allergies: no Adherence: Medication Adherence What concerns does the patient have in regards to their medications: Rx last filled in July,. Pt using just once a month, instead of q 14 days, due to cost. She skipped the month of September. Patient reported X missed doses in the last month: all Any gaps in refill history greater than 2 weeks in the last 3 months: yes Demonstrates understanding of importance of adherence: yes Informant: patient Reliability of informant: reliable Provider-estimated medication adherence level: 26-50% Reasons for non-adherence: patient has problems affording medications Adherence tools used: directed education Support network for adherence: healthcare provider Confirmed plan for next specialty medication refill: delivery by pharmacy Refills needed for supportive medications: not needed Are you experiencing any side effects from your medications? no Pt understands no changes to current drug regimen were made at the appointment and that [facility] is providing recommendations (summary located at top of note) for provider review and follow up. Michael Mckinnon RPH 11/20/19 11:45 AM documented in this encounter Plan of Treatment Not on file documented as of this encounter Goals Goal Patient Goal Type Associated Problems Recent Progress Patient-Stated? Author LDL CALC < 70 Result Component No Michael Mckinnon RPH documented as of this encounter Visit Diagnoses Not on filedocumented in this encounter
--- OUTSIDE RECORDS SUMMARY | 2024-03-29 03:35 | XMS_ITS | Encounter Summary ---
Author Organization [facility] [place] [address] Care Team Providers Care Wellness Consultant Name Role Phone Unavailable Primary Care Provider Unavailabl e Encounter Details Date Type Department Care Team (Latest Contact Info) Description 07/27/2019 11:20 AM EST Office Visit Cardiology at [address] [phone] Marcello Stephens MD [facility] [place] [address] Hyperlipidemia, unspecified hyperlipidemia type; Coronary artery disease involving e[place] coronary artery, angina presence unspecified, unspecified whether eek or transplanted heart Social History Tobacco Use Types Packs/Day Years [...] Sign Reading Time Taken Comments Blood Pressure 173/66 07/27/2019 11:29 AM EST Pulse 56 07/27/2019 11:29 AM EST Temperature - - Respiratory Rate - - Oxygen Saturation 99% 07/27/2019 11:29 AM EST Inhaled Oxygen Concentration - - Weight 72.8 kg (160 lb 9.6 oz) 07/27/2019 11:29 AM EST Height 154.9 cm (5' 1) 07/27/2019 11:29 AM EST Body Mass Index 30.35 07/27/2019 11:29 AM EST documented in this encounter Progress Notes * Marcello Stephens MD - 07/27/2019 11:20 AM EST [facility] Lipid Clinic-Follow Up Visit ID/PMH Ginger is a 83 y.o. followed by Jacob Foley DO with the following problems: Patient Active Problem List Diagnosis Code ??? 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 Seborrheic keratosis L82.1 ??? Actinic keratosis L57.0 ??? CAD (coronary artery disease) I25.10 ??? Hypertension I10 ??? 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 Asthma J45.909 ??? LUNA (dyspnea on exertion) R06.09 ??? 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 ??She has 3??children??all daughters and 4??grandchildren??2 girls and 2boys. 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 Present Illness Ginger Monacoar??is seen at the request of Dr. Jacob Foley??for??follow- up??management of dyslipidemia, specifically elevated LDL cholesterol in the setting of coronary artery disease and a history of muscle weakness, myalgia, and elevated CK while on rosuvastatin (Crestor). ??She was managed by neurology here at [facility] for her muscle weakness, myalgia and elevation in CK. ??With discontinuation of rosuvastatin her symptoms improved substantially. ??She was tried on other statins but didnot tolerate these. ??She presents today to discuss the possibility of alternative therapies. ??In Ginger's words I would rather 10 years earlier and go on another statin. ?? Initially, I put her on ezetimibe which did not result in any significant reduction in her LDL. We stopped her ezetimibe and switched her to alirocumab which has brought her LDL down to 82 mg/dL, as can be seen below. At her last visit I asked Ginger is here to resume ezetimibe along with alirocumab.This decision was made because it is known that the combination of these 2 agents is more powerful than either one of them alone. Ginger returns now to assess her response to this combination. Her LDL is outstanding. Her prescription for alirocumab costs $158 every month. She has been taking her alirocumab every 3 weeks and wonders if she can take it every 4 weeks? ROS General: feeling well Cardiac: no chest pressure MSK: feet and leg pain and cramps Will be beginning a PT program Medications Current Outpatient Medications Medication Sig Dispense Refill ??? ezetimibe (ZETIA) 10 mg Tablet Take 1 tablet by mouth daily. 90 tablet 3 ??? alirocumab 75 mg/mL Pen Injector Inject 75 mg subcutaneously every 28 days. 3 mL 3 ??? nitroGLYcerin (NITROSTAT) 0.4 mg Tablet, Sublingual Place 1 tablet under the tongue every 5 minutes as needed for Chest pain. 90 tablet 12 ??? chlorthalidone (HYGROTEN) 25 mg Tablet Take 0.5 tablets by mouth daily. 90 tablet 3 ??? spironolactone (ALDACTONE) 25 mg Tablet Take 12.5 mg by mouth daily. 0 ??? losartan (COZAAR) 100 mg Tablet [...] puff into the lungs 2times daily. ??? amLODIPine (NORVASC) 5 mg Tablet Take 5 mg by mouth daily. ??? aspirin 81 mg Tablet, Delayed Release (E.C.) Take 1 tablet by mouth daily. 30 tablet 3 No current facility-administered medications for this visit. Allergies Bacitracin; Gabapentin; Gramicidin d; Ibuprofen; Lidocaine; Neomycin sulfate; Neosporin [hydrocortisone]; Polymyxin b; Polymyxin b sulfate; Soy; Wfwgrdm-rui-wvr reductase inhibitors; Sulfa (sulfonamide antibiotics); and Wheat Physical Exam General: 83 old woman with a BMI of 30 VS: BP 173/66 Pulse 56 Ht 154.9 cm (5' 1) Wt 72.8 kg (160 lb 9.6 oz) SpO2 99% BMI 30.35 kg/m?? Did not take BP meds today at home 120-145/60s Lungs: clear Heart: S1S2, No MGR, RRR Abd: Soft and nontender. Psych: Appropriate affect. Labs Total Cholesterol 121 mg/dL Triglycerides 69 mg/dL HDL-C 56 mg/dL LDL-C 52 mg/dL Assessment Ms. Whitehead is an 83-year-old woman with coronary artery disease who does not tolerate statins. She had only modest LDL reduction with both ezetimibe and alirocumab individually. The combination ofthese 2 agents is generally significantly better than either one alone and as such I prescribed them together. She returns today taking ezetimibe daily and is taking alirocumab every 3 weeks (rather than every 2 weeks as prescribed - due to expense). Her lipids are the best they have ever been. Sheis wondering if she might be able to take the alirocumab monthly and continue the ezetimibe daily. I am willing to see where her LDL lands on monthly alirocumab. Plan ?? Medication changes: continue daily ezetimibe, take alirocumab monthly by subcutaneous injection ?? Investigations: Labs and a visit in 6-8 months ?? Counseling: I explained my impression and answered all Ginger's questions. Follow up 02-01-20 MARCELLO STEPHENS MD 07/27/2019 This visit was 25 minutes in length of which 20 minutes were spent in counseling CC: Jacob Foley DO documented in this encounter Plan of Treatment Not on file documented as of this encounter Visit Diagnoses Diagnosis Hyperlipidemia, unspecified hyperlipidemia type Coronary artery disease involving eek coronary artery, angina presence unspecified, unspecified whether eek or transplanted heart documented in this encounter
--- OUTSIDE RECORDS SUMMARY | 2024-03-29 03:35 | XMS_ITS | Encounter Summary ---
Author Organization [facility] [place] [address] Care Team Providers Care Waste Management Engineer Name Role Phone Andrew Novak APRN Primary Care Provider +1- [phone] Reason for Visit * Reason Comments Medication Refill Encounter Details Date Type Department Care Team (Late st Contact Info) Description 11/04/2021 Refill Cardiology at [address] [phone] Nellie Mclaughlin MD [facility] [place] [address] Medication Refill Social History Tobacco Use Types [...] Result Component No Michael Mckinnon, [facility] documented as of this encounter Visit Diagnoses Diagnosis Hyperlipidemia, unspecified hyperlipidemia type documented in this encounter Care Teams Waste Management Engineer Relationship Specialty Start Date End Date Andrew Novak APRN [address] [place] [address] PCP - General Family Medicine 08/15/20 09/18/23 documented as of this encounter
--- OUTSIDE RECORDS SUMMARY | 2024-03-29 03:35 | XMS_ITS | Encounter Summary ---
[place] [address] Care Team Providers Care Commercial Sales Manager Name Role Phone Andrew Novak APRN Primary Care Provider +1- [phone] Encounter Details Date Type Department Care Team (Late st Contact Info) Description 09/11/2020 Telephone Cardiology at [address] [phone] Charis Martines, [employer] MACH[employer] Social History Tobacco Use Types Packs/Day Years [...] 70 Result Component No Michael Mckinnon, [facility] documented as of this encounter Visit Diagnoses Not on filedocumented in this encounter Care Teams Commercial Sales Manager Relationship Specialty Start Date End Date Andrew Novak APRN [address] [place] [address] PCP - General Family Medicine 08/15/20 09/18/23 documented as of this encounter
--- OUTSIDE RECORDS SUMMARY | 2024-03-29 03:35 | XMS_ITS | Encounter Summary ---
[place] [address] Care Team Providers Care Contracts Specialist Name Role Phone Andrew Novak APRN Primary Care Provider [phone]- [phone] Reason for Referral * Diagnostic Test (Routine) - Closed Specialty Diagnoses / Procedures Referred By Contac t Referred To Contact Radiology Diagnoses Weakness of both hands Neck pain Procedures MRI Cervical Spine wo Contrast (Generic) Chon Snyder MD [facility] [place] [address] [place] [address] Referral ID Status Reason Start Date Expiration Date V isits Requested Visits Authorized [id number] Closed Specialty Service Requested 07/24/2021 01/22/2023 1 1 Reason for Visit * Diagnostic Test (Routine) - Closed Specialty Diagnoses / Procedures Referred By Contac t Referred To Contact Radiology Diagnoses Weakness of both hands Neck pain Procedures MRI Cervical Spine wo Contrast (Generic) Chon Snyder MD [facility] [place] [address] [place] [address] Referral ID Status Reason Start Date Expiration Date V isits Requested Visits Authorized [id number] Closed Specialty Service Requested 07/24/2021 01/22/2023 1 1 Encounter Details Date Type Department Care Team (Late st Contact Info) Description 08/27/2021 12:45 PM EST - 08/27/2021 12:47 PM EST Hospital Encounter MRI at [facility] [place] [address] Chon Snyder MD [facility] [place] [address] Weakness of both hands; Neck pain Discharge Disposition: Home Social History Tobacco Use [...] (HFA) every 4 hours as needed. 07/01/2020 nitroGLYcerin (Nitrostat) 0.4 mg Tablet, SublingualIndications: Coronary artery disease involving [place] coronary artery, angina presence unspecified, unspecified whether [place] or transplanted heart Place 1 tablet under [...] puff into the lungs 2 times daily. ezetimibe (Zetia) 10 mg TabletIndications:Hype rlipidemia, unspecified hyperlipidemia type Take 1 tablet by mouth daily. 90 tablet 3 01/15/2021 06/09/2022 alirocumab 75 mg/mL Pen InjectorIndications:Hy perlipidemia, unspecified hyperlipidemia type,Coronary artery disease involving [place] coronary artery, angina presence unspecified, unspecified whether [place] or transplanted heart Inject 75 mg subcutaneously every 21 days. 5 mL 3 09/19/2020 10/30/2021 spironolactone (ALDACTONE) 25 mg Tablet Take 12.5 mg by mouth daily. Alternates 12.5 and 25 every other day 0 11/08/2018 06/04/2022 losartan (COZAAR) 100 mg Tablet Take 25 mg by mouth daily. 08/31/2018 06/09/2022 aspirin 81 mg Tablet, Delayed Release (E.C.) Take 1 tablet by mouth daily. 30 tablet 3 07/02/2015 06/09/2022 documented as of this encounter Progress Notes * Coco Bundy RN - 08/21/2021 8:44 AM EST MRI PRE-SEDATION ASSESSMENT NOTE NAME: Ginger Amador AGE: 85 y.o. : 1935 [address] [place] [address] Female [phone] (home) Telephone Information: Jacob Foley, DO None Allergies Allergen Reactions ??? Bacitracin ??? Gabapentin Other (See Comments) [place] like a zombie ??? Gramicidin D ??? Ibuprofen ??? Lidocaine ??? Neomycin Sulfate ??? Neosporin [Hydrocortisone] ??? Polymyxin B ??? Polymyxin B Sulfate ??? Soy ??? Kssribc-Zhm-Dsm Reductase Inhibitors Other (See Comments) Muscle soreness/weakness, fatigue ??? Sulfa (Sulfonamide Antibiotics) ??? Wheat Nausea And Vomiting Extreme fatigue and sleepiness Date/Time of call: August 21, 2021/8:45 AM/ PREVIOUS MRI SCAN? yes HEIGHT: WEIGHT: SCHEDULED SCAN: MRI CERVICAL SPINE WO CONTRAST [[id number]] SUBJECTIVE: anxiety CAN YOU LAY FLAT? yes AIRWAY/BREATHING ISSUES? Asthma DO YOU HAVE ANY INVOLUNTARY MOVEMENTS? tremors DO YOU HAVE ANY PAIN? no DO YOU TAKE PAIN MED ON A DAILY BASIS?no ASSESSMENT: appropriate for sedation PLAN: Ativan 0.5 mg PO x 1 ( MAS ) You must have a truck driver heavy present when you check in. This patient has been informed that they require a truck driver heavy to drive them home after this procedure. In the absence of a truck driver heavy, IR will not be able to sedate for your scan. Pt verbalized understanding of these instructions during the pre-procedure education via phone. Yes Name of truck driver heavy: Will give at front end web developer Phone number: PRIOR SCAN DATE/S SEDATION TYPE SUCCESSFUL 08/27/21 MRI cervical Ativan 0.5 x1 yes Revised 01/10/18 documented in this encounter Plan of Treatment Not on file documented as of this encounter Goals Goal Patient Goal Type Associated Problems Recent Progress Patient-Stated? Author LDL CALC < 70 Result Component No Michael Mckinnon, [facility] documented as of this encounter Procedures Procedure Name Priority Date/Time Associated Diagnosis Comments MRI CERVICAL SPINE WO CONTRAST Routine 08/27/2021 3:11 PM EST Weakness of both hands Neck pain documented in this encounter Results * MRI Cervical Spine wo Contrast (Generic) (08/27/2021 3:11 PM EST) Anatomical Region Laterality Modality C-spine Magnetic Resonan ce Impressions 08/28/2021 8:37 AM EST 1. 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 2. Left foraminal stenosis is severe at C2/3 and moderate at C7/T1. Thank you for letting us participate in the care of this patient. ??If you are a health care provider and have any questions regarding this report, please contact the number below. ??For patients who have questions please contact the health ambulatory care coordinator that requested your imaging first. ? Electronically signed by: Orly Pride MD, [facility] ([phone]), at 08/28/2021 8:37 AM Narrative 08/28/2021 8:37 AM EST EXAMINATION: MRI CERVICAL SPINE WO CONTRAST (GENERIC) CLINICAL HISTORY: Cervical radiculopathy 85 yo w hand weakness and neck pain - ? myelopathy and radiculopathy TECHNIQUE: MRI of the cervical spine performed without intravenous contrast administration. COMPARISON: None FINDINGS: Craniocervical and cervicomedullary junctions are normal. Degenerative changes at the atlantodental articulation. Prevertebral soft tissues are within normal limits. Multiple small, subcentimeter bilateral thyroid nodules incidentally noted. Degenerative changes of the right sternoclavicular joint partially visible. Significant multilevel degenerative changes, with severe central canal stenosis from C3/4 through C6/7, as detailed below. C2/3: Central disc/osteophyte, ligamentum flavum flavum thickening, severe left and minimal right degenerative facet arthropathy. Mild stenosis of the central canal. Severe left and minimal right neural foraminal stenosis. C3/4: Significant disc/osteophyte, ligamentum flavum hypertrophy with severe central canal stenosis with compression of the spinal cord and mild cord signal abnormality. Moderate bilateral facet hypertrophy and uncovertebral hypertrophy, with severe right and moderate to severe left neural foraminal stenosis. C4/5: Disc/osteophyte and significant ligamentum flavum hypertrophy, bilateral uncovertebral hypertrophy and moderate bilateral degenerative facet arthropathy, left greater than right. Severe stenosis of the central canal and left neural foramen. Moderate right foraminal stenosis. No definite cord signal abnormality. C5/6: Severe disc height loss, circumferential disc/osteophyte with radial fissure is within the disc. Mild ligamentum flavum hypertrophy. Severe bilateral facet arthropathy and uncovertebral hypertrophy. Severe stenosis of the central canal and bilateral neural foramina, with compression of the cord and mild cord signal abnormality at C5/6, with cystic cord signal abnormality and volume loss at the C6 level. C6/7: Left central disc/osteophyte, right greater than left degenerative facet and uncovertebral hypertrophy. Moderate to severe central canal and bilateral neural foraminal stenosis. C7/T1: No significant disc bulge. Left greater than right uncovertebral and facet hypertrophy, with moderate left foraminal and mild right foraminal stenosis. No significant canal stenosis. Procedure Note Orly Pride MD - 08/28/2021 EXAMINATION: MRI CERVICAL SPINE WO CONTRAST (GENERIC) CLINICAL HISTORY: Cervical radiculopathy 85 yo w hand weakness and neck pain - ? myelopathy and radiculopathy TECHNIQUE: MRI of the cervical spine performed without intravenous contrastadministration. COMPARISON: None FINDINGS: Craniocervical and cervicomedullary junctions are normal. Degenerativechanges at the atlantodental articulation. Prevertebral soft tissues are withinnormal limits. Multiple small, subcentimeter bilateral thyroid nodulesincidentally noted. Degenerative changes of the right sternoclavicular jointpartially visible. Significant multilevel degenerative changes, with severe central canalstenosis from C3/4 through C6/7, as detailed below. C2/3: Central disc/osteophyte, ligamentum flavum flavum thickening, severeleft and minimal right degenerative facet arthropathy. Mild stenosis of thecentral canal. Severe left and minimal right neural foraminal stenosis. C3/4: Significant disc/osteophyte, ligamentum flavum hypertrophy withsevere central canal stenosis with compression of the spinal cord and mild cordsignal abnormality. Moderate bilateral facet hypertrophy and uncovertebralhypertrophy, with severe right and moderate to severe left neural foraminal stenosis. C4/5: Disc/osteophyte and significant ligamentum flavum hypertrophy,bilateral uncovertebral hypertrophy and moderate bilateral degenerative facetarthropathy, left greater than right. Severe stenosis of the central canal and leftneural foramen. Moderate right foraminal stenosis. No definite cord signalabnormality. C5/6: Severe disc height loss, circumferential disc/osteophyte withradial fissure is within the disc. Mild ligamentum flavum hypertrophy. Severebilateral facet arthropathy and uncovertebral hypertrophy. Severe stenosis of thecentral canal and bilateral neural foramina, with compression of the cord and mildcord signal abnormality at C5/6, with cystic cord signal abnormality and volumeloss at the C6 level. C6/7: Left central disc/osteophyte, right greater than left degenerativefacet and uncovertebral hypertrophy. Moderate to severe central canal andbilateral neural foraminal stenosis. C7/T1: No significant disc bulge. Left greater than right uncovertebraland facet hypertrophy, with moderate left foraminal and mild right foraminal stenosis. No significant canal stenosis. IMPRESSION 1. 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 2. Left foraminal stenosis is severe at C2/3 and moderate at C7/T1. Thank you for letting us participate in the care of this patient. If youare a health care provider and have any questions regarding this report,please contact the number below. For patients who have questions please contactthe health ambulatory care coordinator that requested your imaging first. Electronically signed by: Orly Pride MD, [facility]([phone]), at 08/28/2021 8:37 AM Chon Snyder MD IMG MRI ORDERABLE S documented in this encounter Visit Diagnoses Diagnosis Weakness of both hands Neck pain Cervicalgia documented in this encounter Administered Medications Inactive Administered Medications - up to 3 most recent administrations Medication Order MAR Action Action Date Dose Rate Site LORazepam (Ativan) tablet 0.5 mg 0.5 mg, Oral, ONCE, 1 dose, On Flavia 08/27/21 at 0845, Routine Given 08/27/2021 1:20 PM EST 0.5 mg documented in this encounter Care Teams Contracts Specialist Relationship Specialty Start Date End Date Andrew Novak APRN [address] [place] [address] PCP - General Family Medicine 08/15/20 09/18/23 documented as of this encounter
--- OUTSIDE RECORDS SUMMARY | 2024-03-29 03:35 | XMS_ITS | Encounter Summary ---
[place] [address] Care Team Providers Care Trommel Tender Name Role Phone Andrew Novak APRN Primary Care Provider [phone]- [phone] Reason for Visit * Reason Comments Medication Refill Encounter Details Date Type Department Care Team ([facility] Contact Info) Description 06/09/2021 Specialty [place] [id number] Tracy Sanchez RPH Social History Tobacco Use Types Packs/Day [...] Progress Notes * Tracy Sanchez RPH - 06/09/2021 1:37 PM EDT Clinical Management Plan: Refill Specialty Pharmacy Consultation; Tracy Sanchez RPH Comprehensive Medication Management (CMM) Ginger Amador Ms. Ginger Amador is a 85 y.o. (1935) female who was contacted in [...] Provider: plan sponsor pharmacist Visit Type: [facility] [place] Follow-up Cognitive Ability: good Cognitive Impairment Status Verified this Year: no Allergies and Drug intolerance: Allergies Allergen Reactions ??? Bacitracin ??? Gabapentin Other (See Comments) [place] like a zombie ??? Gramicidin D ??? Ibuprofen ??? Lidocaine ??? Neomycin Sulfate ??? Neosporin [Hydrocortisone] ??? Polymyxin B ??? Polymyxin B Sulfate ??? Soy ??? Mmihjvq-Maj-Nou Reductase Inhibitors Other (See Comments) Muscle soreness/weakness, fatigue ??? Sulfa (Sulfonamide Antibiotics) ??? Wheat Nausea And Vomiting Extreme fatigue and sleepiness Medication Reconciliation Discrepancies (compared to [facility] med list) -none Specialty Pharmacy Refill Questionnaire Refill Questionnaire 06/09/2021 What is the name of the specialty medication you are refilling? Praluent Are you taking any new medications? No Any new medical condition? No Any new allergies? No Any missed doses since your last fill? Yes Please explain 2 Any new side effects that are bothersome? No What date will you need this fill by? 06/26/2021 Adherence: does have trouble remembering to do injection. Had been writing injection dates on a calendar but was still missing doses.Recommended adding a reminder/alarm in her phone to help remember. Specialty Med Adherence Patient Demonstrates Understanding of Importance of Adherence: Yes Educational Information or Adherence Tools Provided: Yes Patient Reported X Missed Doses in the Last Month: 2 If >0, reason for missed doses: memory If yes, why?: memory Provider-Estimated Medication Adherence Level: 51-75% Adherence Tools Used: calendar, cell phone Pt understands no changes to current drug regimen were made at the appointment and that [facility] is providing recommendations (summary located at top of note) for provider review and follow up. Tracy Sanchez RPH 06/09/21 1:39 PM documented in this encounter Plan of Treatment Not on file documented as of this encounter Goals Goal Patient Goal Type Associated Problems Recent Progress Patient-Stated? Author LDL CALC < 70 Result Component No Michael Mckinnon RPH documented as of this encounter Visit Diagnoses Not on filedocumented in this encounter Care Teams Trommel Tender Relationship Specialty Start Date End Date Andrew Novak APRN [address] [facility] [address] [place] [address] PCP - General Family Medicine 08/15/20 09/18/23 documented as of this encounter
--- OUTSIDE RECORDS SUMMARY | 2024-03-29 03:35 | XMS_ITS | Encounter Summary ---
Author [facility] [place] [address] Care Team Providers Care Traffic Or System Dispatcher Name Role Phone Unavailable Primary Care Provider Unavailabl e Encounter Details Date Type Department Care Team (Late st Contact Info) Description 12/21/2019 Refill Cardiology at [address] [address] Nellie Mclaughlin MD [facility] [place] [address] Social History Tobacco Use Types Packs/Day Years [...] unspecified hyperlipidemia type Coronary artery disease involving [place] coronary artery, angina presence unspecified, unspecified whether [place] or transplanted heart documented in this encounter
--- OUTSIDE RECORDS SUMMARY | 2024-03-29 03:35 | XMS_ITS | Encounter Summary ---
Author Organization [place] [address] Care Team Providers Care Lan Support Specialist Name Role Phone Andrew Novak APRN Primary Care Provider [phone]- [phone] Reason for Referral * Consultation (Routine) - Closed Specialty Diagnoses / Procedures Referred By Contac t Referred To Contact Neurosurgery Diagnoses Neuropathy Weakness of both hands Cervical myelopathy with cervical radiculopathy Carpal tunnel syndrome, bilateral Chon Snyder MD [facility] [place] [address] Angelo Pulido MD [facility] [place] [address] Referral ID Status Reason Start Date Expiration Date V isits Requested Visits Authorized [id number] Closed Consult, Test & Treat 08/28/2021 08/28/2022 1 1 Reason for Visit * Reason Onset Date Comments Other 08/28/2021 Encounter Details Date Type Department Care Team (Late st Contact Info) Description 08/28/2021 [place] [phone] Chon Snyder MD [facility] [place] [address] Other Social History Tobacco Use Types Packs/Day Years [...] encounter Miscellaneous Notes * Telephone Encounter - Chon Snyder MD - 08/28/2021 3:53 PM EST Discussed MRI c-spine with Ginger. Looks like compressive myeloradiculopathy. I discussed risks and benefits from decompression. She had CTR w Dr. Pulido many years ago and liked him a lot. She would like to discuss with him, so I put in referral. 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 I will call her if anything shows up on the blood tests meanwhile. Chon Snyder MD 08/28/2021 [employer] General Neurology and Clinical Neurophysiology [facility] Department of Neurology * Telephone Encounter - Umu [place] - 08/28/2021 2:57 PM EST Call Center / [facility] Message - General Issue Call Provider patient sees in Clinic: Claudio Caller and relationship (if other than patient-full name): Ginger Amador [employer] and position if other than patient or family: Patient Call back number: [phone] Ok to leave a message: y Reason for call: Patient returning phone call to Dr. Snyder Disposition of Call (choose one and remove others): ??? Routine Message sent to the Nurse: Nurse/[facility] [employer] contacted via: Message: y Call: n Pager: n documented in this encounter Plan of Treatment Scheduled Referrals Name Type Priority Associated Diagnoses Order Schedule Referral to Neurosurgery Outpatient Referral Routine Neuropathy Weakness of both hands Cervical myelopathy with cervical radiculopathy Carpal tunnel syndrome, bilateral Ordered: 08/28/2021 documented as of this encounter Goals Goal Patient Goal Type Associated Problems Recent Progress Patient-Stated? Author LDL CALC < 70 Result Component No Michael Mckinnon, [facility] documented as of this encounter Visit Diagnoses Diagnosis Neuropathy Mononeuritis of unspecified site Weakness of both hands Cervical myelopathy with cervical radiculopathy Carpal tunnel syndrome, bilateral Carpal tunnel syndrome documented in this encounter Care Teams Lan Support Specialist Relationship Specialty Start Date End Date Andrew Novak APRN [address] [place] [address] PCP - General Family Medicine 08/15/20 09/18/23 documented as of this encounter
--- OUTSIDE RECORDS SUMMARY | 2024-03-29 03:35 | XMS_ITS | Encounter Summary ---
[place] [address] Care Team Providers Care Information Systems Technician Name Role Phone Andrew Novak APRN Primary Care Provider [phone]- [phone] Reason for Referral * Diagnostic Test (Routine) - Closed Specialty Diagnoses / Procedures Referred By Contac t Referred To Contact Radiology Diagnoses Weakness of both hands Neck pain Procedures MRI Cervical Spine wo Contrast (Generic) Chon Snyder MD [facility] [place] [address] [place] [address] Referral ID Status Reason Start Date Expiration Date V isits Requested Visits Authorized [id number] Closed Specialty Service Requested 07/24/2021 01/22/2023 1 1 Reason for Visit * Consultation (Routine) - Closed Specialty Diagnoses / Procedures Referred By Contac t Referred To Contact Neurology Diagnoses Tremor, unspecified Og, Jacob, DO [address] [place] [address] [facility] [address] [place] [phone] Referral ID Status Reason Start Date Expiration Date V isits Requested Visits Authorized [id number] Closed Consult, Test & Treat Connection Center PCP Updated and/or Approved 07/20/2021 07/20/2022 6 6 Encounter Details Date Type Department Care Team (Late st Contact Info) Description 07/24/2021 3:00 PM EST [place] [address] Chon Snyder MD [facility] [place] [address] Weakness of both hands; Neck pain Social History Tobacco Use Types Packs/Day Years [...] Sign Reading Time Taken Comments Blood Pressure 200/80 07/24/2021 3:03 PM EST pt didnt take her meds, frustrated at the long walk/new rule Pulse - - Temperature - - Respiratory Rate - - Oxygen Saturation - - Inhaled Oxygen Concentration - - Weight 73 kg (161 lb) 07/24/2021 3:03 PM EST Height 154.9 cm (5' 1) 07/24/2021 3:03 PM EST Body Mass Index 30.42 07/24/2021 3:03 PM EST documented in this encounter Progress Notes * Chon Snyder MD - 07/24/2021 3:00 PM EST Ginger Amador is a 85 y.o. woman who is a patient of Jacob Foley DO referred for evaluation of tremor. I saw her back in 2016 and 2017 for a different issue. She has a history of back pain. She has a history of leg weakness. I suspected radiculopathy but was not sure. She also had a history that far preceded me of at least 2 carpal tunnel surgeries, as well as ulnar neuropathy with surgery. She was also having aching and CK elevation. This seemed to improve when she came off her Crestor. Please see prior notes for details. She actually does not mention the tremor until I asked her about it about 20 minutes into the appointment. Regarding the tremor, she says that occasionally she has jerking of her whole body. It is not very bothersome. There is no actual tremor. She mentions it only because she is wondering if it has to do with the rest of her problems, which is what we focused the remainder of the visit on. She tells me her hands have become progressively weaker. She also has both joint and muscle pains. She is not sure if her problem now is due to a nerve issue or her arthritis or getting older. At this point her hands are difficult to use even for typical daily activities. Her right hand in particular is weak. She lives by herself and it has become a real chore to put her clothes on. She feels like her brain just cannot tell her hands what to do, and in particular the right hand. She alsohas numbness. It is a little uncertain when this all started. She believes it has been slowly progre ssive over several years. We did not speak much about the hands back in 2016 or 17, which makes me wonder if it started after that. Her balance is also poor. She also has back pain. She injured her left rotator cuff and has some pain in the left bicep. Balance is off and she uses a cane and manageswithout falls. She reports some polyuria as well as some incontinence intermittently that has been going on also for several years. She has a history of coronary artery disease. She takes several cholesterol medicines which are notstatins. She is supposed to be on antihypertensives but found them to be ineffective and stopped them on her own. She is often intolerant to medications. On physical exam, she has bilateral hand [...] plantar reflexes seem to be mute bilaterally. On strength testing, right APB is 2 [...] does have arthritic changes of the hands. In summary, this is an 85-year-old woman who has developed progressive hand weakness on top of a baseline of urinary incontinence, imbalance, high CK and right leg weakness with possible radiculopathy. She also has a history of recurrent right CTS also ulnar neuropathy. She seems to have both numbness and weakness, which makes conditions such as motor neuropathy less likely. Multiple mononeuropathies is possible, either on its own or part of a condition such as Michael Eric or HNPP. She has no known history of diabetes or significant alcohol use, and nor is there any family history of neuropathy as far she knows. 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 I will bring her back for EMG/NCS 75 minutes. This will be a long study to include the right arm including radial sensorimotor, as well as the right leg, potentially with contralateral comparisons, and then a pretty extensive needle examination. I discussed the uncertainty in the diagnosis, but we agreed on the plan for lab work, MRI, and EMG/NCS, and hopefully that will give us some answers. She will be sure to have the lab at [facility] to me the results. MRI will be scheduled here. I will see her myself the first week of August for the EMG/NCS and we will go from there. I spent 75 minutes in consultation, including documentation and record review. Chon Snyder MD 07/24/2021 Abattoir Manager General Neurology and Clinical Neurophysiology [facility] Department of Neurology documented in this encounter Plan of Treatment Not on file documented as of this encounter Goals Goal Patient Goal Type Associated Problems Recent Progress Patient-Stated? Author LDL CALC < 70 Result Component No Michael Mckinnon, [facility] documented as of this encounter Results * MRI Cervical Spine [...] who have questions please contact the health transitional care nurse that requested your imaging first. ? Narrative 08/28/2021 8:37 AM EST EXAMINATION: MRI [...] patients who have questions please contactthe health transitional care nurse that requested your imaging first. Chon Snyder MD IMG MRI ORDERABLE S documented in this encounter Visit Diagnoses Diagnosis Weakness of both hands Neck pain Cervicalgia Weakness of both hands Neck pain Cervicalgia documented in this encounter Care Teams Information Systems Technician Relationship Specialty Start Date End Date Andrew Novak, VANCE [address] [place] [address] PCP - General Family Medicine 08/15/20 09/18/23 documented as of this encounter
--- OUTSIDE RECORDS SUMMARY | 2024-03-29 03:35 | XMS_ITS | Encounter Summary ---
[place] [address] Care Team Providers Care Molecular Physicist Name Role Phone Andrew Novak APRN Primary Care Provider +1- [phone] Encounter Details Date Type Department Care Team (Late st Contact Info) Description 01/14/2021 Refill Cardiology at [address] [address] Nellie Mclaughlin MD [facility] [place] [address] Social History Tobacco Use Types Packs/Day Years [...] < 70 Result Component No Michael Mckinnon, [facility] documented as of this encounter Visit Diagnoses Diagnosis Hyperlipidemia, unspecified hyperlipidemia type documented in this encounter Care Teams Molecular Physicist Relationship Specialty Start Date End Date Andrew Novak APRN [address] [place] [address] PCP - General Family Medicine 08/15/20 09/18/23 documented as of this encounter
--- OUTSIDE RECORDS SUMMARY | 2024-03-29 03:35 | XMS_ITS | Encounter Summary ---
[place] [address] Care Team Providers Care Sequins Slinger Name Role Phone Andrew Novak APRN Primary Care Provider +1- [phone] Reason for Visit * Reason Onset Date Comments Appointment 08/17/2021 Encounter Details Date Type Department Care Team (Late st Contact Info) Description 08/17/2021 [place] [address] Chon Snyder MD [facility] [place] [address] Appointment Social History Tobacco Use Types Packs/Day Years [...] encounter Miscellaneous Notes * Telephone Encounter - Rajwinder, Kerri P - 08/17/2021 2:57 PM EST Call Center / [employer] Message - General Issue Call Provider patient sees in Clinic: Chon Snyder Caller and relationship (if other than patient-full name): self Company and position if other than patient or family: Call back number: [phone] Ok to leave a message: y Reason for call: Patient states she has upcoming appointment tomorrow 08/18/2021 for EMG but is unable to get blood works done yet . Patient wants to know if its ok to come in without having these labs work done. Please call the patient back to confirm. Disposition of Call (choose one and remove others): ??? Red Arrow Message Reason red arrow Message: n ??? Routine Message sent to the Nurse: n ??? Routine message sent to Haynes: y Nurse/Haynes contacted via: Message: y Call: n Pager: n documented in this encounter Plan of Treatment Not on file documented as of this encounter Goals Goal Patient Goal Type Associated Problems Recent Progress Patient-Stated? Author LDL CALC < 70 Result Component No Michael Mckinnon, MARCELO documented as of this encounter Visit Diagnoses Not on filedocumented in this encounter Care Teams Sequins Slinger Relationship Specialty Start Date End Date Andrew Novak, V[employer] [address] [place] [address] PCP - General Family Medicine 08/15/20 09/18/23 documented as of this encounter
--- OUTSIDE RECORDS SUMMARY | 2024-03-29 03:35 | XMS_ITS | Encounter Summary ---
[place] [address] Care Team Providers Care Sander Hand Name Role Phone Andrew Novak APRN Primary Care Provider [phone]- [phone] Encounter Details Date Type Department Care Team (Late st Contact Info) Description 11/12/2021 4:00 PM EDT TH Visit (TeleHealth) [place] [address] Chon Snyder MD [facility] [place] [address] Cervical myelopathy with cervical radiculopathy; Weakness of both hands Social History Tobacco Use Types Packs/Day Years Used Date Smoking Tobacco: Never Smokeless Tobacco: Never Alcohol Use Standard Drinks/Week Comments Yes 0 (1 standard drink = 0.6 oz pur e alcohol) Social Sex and Gender Information Value Date Recorded Sex Assigned at Not on file Gender Identity Not on file Sexual Orientation Not on file documented as of this encounter Progress Notes * Chon Snyder MD - 11/12/2021 4:00 PM EDT Ginger Amador is a 85 y.o. woman who is a patient of Jacob Foley DO who I am visiting today by telehealth in follow-up for cervical myelopathy and radiculopathy with hand weakness. This is a telehealth visit rather than in person. It was converted to telephone since the patient did not have video capabilities. She saw Dr. Pulido. They considered surgery but given the potential risks as well as the recovery time they decided to decline at this time. We had a long discussion about the natural history of degenerative spine disease, as well as her case in particular. She is trying to sell her house. She really cannot use a walker in the home. It isalso a huge house and she has to do the shoveling and other activities, which I think is very difficult given the degree of nerve loss and muscle loss and weakness. Luckily she is very sharp in the mind still and is very careful so has not had any major falls even though she does not control her limbs very well. We had a discussion about surgery again and about the future, but she is quite well-informed and clear on the path forward. From her perspective, she understands she will accumulate disability but asof now she is clear in the mind and will adjust as needed. She may look into assisted living. She is doing ongoing PT. Luckily she is not in any significant pain except for occasionally with low pressure systems. She had all of her questions answered. We spent 20 minutes in consultation. I will not schedule follow-up but she will call me if she needs anything moving forward. Chon Snyder MD 11/12/2021 Automatic Nailing Machine Feeder General Neurology and Clinical Neurophysiology [facility] Department of Neurology documented in this encounter Plan of Treatment Not on file documented as of this encounter Goals Goal Patient Goal Type Associated Problems Recent Progress Patient-Stated? Author LDL CALC < 70 Result Component No Michael Mckinnon, [facility] documented as of this encounter Visit Diagnoses Diagnosis Cervical myelopathy with cervical radiculopathy Weakness of both hands documented in this encounter Care Teams Sander Hand Relationship Specialty Start Date End Date Andrew Novak APRN [address] [place] [address] [address] [place] [address] PCP - General Family Medicine 08/15/20 09/18/23 documented as of this encounter
--- OUTSIDE RECORDS SUMMARY | 2024-03-29 03:35 | XMS_ITS | Encounter Summary ---
[place] [address] Care Team Providers Care Swimming Coach Or Instructor Name Role Phone Andrew Novak APRN Primary Care Provider +1- [phone] Reason for Visit * Diagnostic Test (Routine) - Closed Specialty Diagnoses / Procedures Referred By Contac t Referred To Contact Radiology Diagnoses Weakness of both hands Neck pain Procedures MRI Cervical Spine wo Contrast (Generic) Chon Snyder MD [facility] [place] [address] [place] [address] Referral ID Status Reason Start Date Expiration Date V isits Requested Visits Authorized [id number] Closed Specialty Service Requested 07/24/2021 01/22/2023 1 1 Encounter Details Date Type Department Care Team (Late st Contact Info) Description 08/27/2021 12:48 PM EST - 08/27/2021 11:59 PM EST Hospital [place] [address] Chon Snyder MD [facility] [place] [address] Discharge Disposition: Home Social History Tobacco Use [...] mg Tablet, SublingualIndications: Coronary artery disease involving [place] coronary artery, angina presence unspecified, unspecified whether [place] or transplanted heart Place 1 tablet under [...] perlipidemia, unspecified hyperlipidemia type,Coronary artery disease involving [place] coronary artery, angina presence unspecified, unspecified whether [place] or transplanted heart Inject 75 mg subcutaneously [...] 07/02/2015 06/09/2022 documented as of this encounter Plan of Treatment Not on file documented as of this encounter Goals Goal Patient Goal Type Associated Problems Recent Progress Patient-Stated? Author LDL CALC < 70 Result Component No Saracino, Ish, [facility] documented as of this encounter Procedures [...] who have questions please contact the health acute care assistant that requested your imaging first. ? Narrative [...] patients who have questions please contactthe health acute care assistant that requested your imaging first. Chon Snyder MD IMG MRI ORDERABLE S documented in this encounter Visit Diagnoses Not on filedocumented in this encounter Care Teams Swimming Coach Or Instructor Relationship Specialty Start Date End Date Andrew Novak, VANCE [address] [place] [address] PCP - General Family Medicine 08/15/20 09/18/23 documented as of this encounter
--- OUTSIDE RECORDS SUMMARY | 2024-03-29 03:35 | XMS_ITS | Encounter Summary ---
Author Organization [facility] [place] [address] Care Team Providers Care Plastic Top Assembler Name Role Phone Unavailable Primary Care Provider Unavailabl e Encounter Details Date Type Department Care Team (Latest Contact Info) Description 03/21/2020 1:40 PM EDT Office Visit Cardiology at [address] [id number] Marcello Stephens MD [facility] [place] [address] Hyperglycemia; Hyperlipidemia, unspecified hyperlipidemia type; Coronary artery disease involving kluti kaah coronary artery, angina presence unspecified, unspecified whether kluti kaah or transplanted heart Social History Tobacco Use [...] Sign Reading Time Taken Comments Blood Pressure 161/66 03/21/2020 1:14 PM EDT Pulse 51 03/21/2020 1:14 PM EDT Temperature - - Respiratory Rate - - Oxygen Saturation 98% 03/21/2020 1:14 PM EDT Inhaled Oxygen Concentration - - Weight 77.4 kg (170 lb 9.6 oz) 03/21/2020 1:14 P M EDT Height 154.9 cm (5' 1) 03/21/2020 1:14 PM EDT Body Mass Index 32.23 03/21/2020 1:14 PM EDT documented in this encounter Progress Notes * Marcello Stephens MD - 03/21/2020 1:40 PM EDT [facility]-Follow Up Visit ID/PMH Ginger is a 84 y.o. followed by Jacob Foley DO with the following problems: Patient Active Problem List Diagnosis Code ??? 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 Seborrheic keratosis L82.1 ??? Actinic keratosis L57.0 ??? CAD (coronary artery disease) I25.10 ??? Hypertension I10 ??? 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 Asthma J45.909 ??? LUNA (dyspnea on exertion) R06.00 ??? 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 ??She has 3??children??all daughters and 4??grandchildren??2 girls and 2 boys. 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 Present Illness Ginger Amador??is seen at the request of Dr. Jacob Foley??for??follow- up??management of dyslipidemia, specifically elevated LDL cholesterol in the setting of coronary artery disease and a history of muscle weakness, myalgia, and elevated CK while on rosuvastatin (Crestor). ??She was managed by neurology here at [facility] for her muscle weakness, myalgia and elevation in CK. ??With discontinuation of rosuvastatin her symptoms improved substantially. ??She was tried on other statins but didnot tolerate these. ??In Ginger's words I would rather 10 years earlier and go on another statin. ?? Initially, I put her on ezetimibe which did not result in any significant reduction in her LDL.?We stopped her ezetimibe and switched her to alirocumab which brought her LDL down to 82 mg/dL. ??I subsequently asked Ginger to resume ezetimibe along with alirocumab. ??This decision was made because it is known that the combination of these 2 agents is more powerful than either one??of them alone. Ginger had an outstanding response to the combination of alirocumab and ezetimibe with her LDL-C falling to 52 mg/dL. It was notable that she was actually taking the alirocumab every 3 weeks instead ofevery 2 weeks. She did this because her prescription for alirocumab costs $158 every month. At her last visit she asked if she could take the alirocumab every 4 weeks? I agreed to this and this visit was meant to evaluate her lipid profile on ezetimibe daily and alirocumab every 4 weeks by subcutaneous injection. Unfortunately, the laboratory only ran sugar and hemoglobin A1c they did not run a lipid profile. This said, Ginger has not been taking her shot because of difficulty with the injection itself. She reports that she does not have the strength in her thumb to press the button on the Sureclick pen as a result she has missed a number of injections. She has brought the Sureclick pen in for me to look at. Ginger actually gave herself the injection in my presence. It was difficult for her to work the injection but it appears uses both hands on the pen that she is more successful. 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 ?? ROS General: feeling weak - I think it is the amlodipine Cardiac: no chest pressure MSK: feet and leg pain and cramps Medications Current Outpatient Medications Medication Sig Dispense Refill ??? ezetimibe (Zetia) [...] [hydrocortisone], Polymyxin b, Polymyxin b sulfate, Soy, Wshwfaf-alz-rqu reductase inhibitors, Sulfa (sulfonamide antibiotics), and Wheat Physical Exam At home her BP is 120-140/60-70 General: 84 year old woman with a BMI of 32.23 VS: BP 161/66 Pulse 51 Ht 154.9 cm (5' 1) Wt 77.4 kg (170 lb 9.6 oz) SpO2 98% BMI 32.23 kg/m?? Lungs: Clear Heart: S1S2, No MGR, RRR Abd: Soft and nontender. Psych: Appropriate affect. Labs Fasting blood sugar 129 mg/dL Hemoglobin A1c 6.2% Fasting lipid profile was not obtained by the lab Assessment Ginger's lipids were not obtained by the lab but since she had missed a number of alirocumab injections due to difficulty with the SureClick pen her lipids would have been elevated. Today, I worked with Ginger on technique for using the pen and she was able to give herself her injection without difficulty. She will have a lipid profile this coming week and I will call her with the results. Regarding her blood sugar I explained that she is in the prediabetes range for her hemoglobin A1c but that her fasting blood sugar was in the diabetes range. We looked through her labs for the last couple of years and she has remained in this range. I talked with Ginger about ways to lower fasting blood sugar and hemoglobin A1c. Specifically, discussed weight loss, restriction of simple carbohydrates, and exercise. Ginger is also complaining of feeling weak and she attributes this to her amlodipine. She attributes it to amlodipine because she has taken herself off amlodipine for a few days and felt better. I suggested she discuss this with Dr. Foley. She is currently on chlorthalidone, Spironolactone, losartan and amlodipine. I suggested that she discuss with Dr. Foley the possibility of taking full tablet of Spironolactone (25 mg) instead of the half tablet she is currently taking and coming off amlodipine. I explained that she should discuss this with Dr. Foley because he is the one that hasprescribed these agents. She will call Dr. Foley this week. Plan ?? Medication changes: none ?? Investigations: labs and a visit in 6 months ?? Counseling: I explained my impression and answered all Ginger's questions. Follow up 6 months This visit was 25 minutes of which 20 was spent in counseling MARCELLO STEPHENS MD 03/21/2020 CC: Jacob Foley DO documented in this encounter Plan of Treatment Scheduled Orders Name Type Priority Associated Diagnoses Orde r Schedule Glucose, fasting Lab Routine Hyperglycemia Expected: 09/22/2020, Expires: 09/22/2021 Hemoglobin A1c Lab Routine Hyperglycemia Expected: 09/22/2020, Expires: 09/22/2021 documented as of this encounter Goals Goal Patient Goal Type Associated Problems Recent Progress Patient-Stated? Author LDL CALC < 70 Result Component No Michael Mckinnon, [facility] documented as of this encounter Results * Lipid Panel (Reflex Direct LDL) (08/27/2021 11:54 AM EST) [facility] Cholesterol, Total 112 mg/dL [facility] Comment: Lower Risk: <200 mg/dL Average Risk: 200-239 mg/dL Higher Risk: >ui=707 mg/dL Triglyceride 92 mg/dL [facility] Comment: Average Risk/Lower Risk: <150 mg/dL Borderline High Risk: 150-199 mg/dL High Risk: 200-499 mg/dL Very High Risk: >ln=181 mg/dL HDL Cholesterol 54 mg/dL [facility] Comment: Males: ?? Higher Risk: <40 mg/dL Females: ?? Higher Risk: <50 mg/dL LDL Cholesterol 40 mg/dL [facility] Comment: Lowest Risk: <100 mg/dL Lower Risk: 100-129 mg/dL Borderline High Risk: 130-159 mg/dL High Risk: 160-189 mg/dL Very High Risk: >gz=610 mg/dL Cholesterol/HDL Ratio 2.[address] [facility] Lipid Interpretation See Note [facility] Comment: Lipid management should be guided by a patient? s ASCVD risk, goals and preferences. ACC/AHA Guidelines recommend high intensity statin if clinical ASCVD or LDL greater than or equal to 190 mg/dL. [email or web address] Adults aged 40-75 with LDL 70-189 mg/dL should have their 10 year ASCVD risk estimated with the ACC/AHA ASCVD risk fabric and accessories estimator http://tools.acc.org/TYWTI-Oeqg-Qyhgokrpc/ Statin should be discussed if risk greater [...] In Lab Marcello Stephens MD CHEMISTRY ORDERABLES [facility] [place] [address] * Glucose, fasting (08/27/2021 11:54 AM EST) Glucose Fasting 94 65 - 99 mg/dL [facility] Comment: ?Fasting* Glucose Interpretive Criteria [...] of Diabetes Mellitus, Position Statement from the [place] Diabetes Association. ??Diabetes Care, Volume 33, Supplement 1, Aug 2009 Blood 08/27/2021 11:5 4 AM EST 08/27/2021 12:06 PM EST Narrative Resulting Agency Comment Spec In Lab Marcello Stephens MD CHEMISTRY ORDERABLES [facility] [place] [address] * (ABNORMAL) Hemoglobin A1c (08/27/2021 11:54 AM EST) Hemoglobin A1c 6.0(H) 4.3 - 5.6 % [facility] Comment: Reference Range: 4.3 - [...] Mellitus, Diabetes Care 2013; 36: Suppl. 1, S67-74 Estimated Average Glucose See note mg/dL [facility] Comment: Estimated Average Glucose not [...] into estimated average glucose values. ??Diabetes Care 2008:31(8):5519-6420. Blood 08/27/2021 11:5 4 AM EST 08/27/2021 12:06 PM EST Narrative Resulting Agency Comment Spec In Lab Marcello Stephens MD CHEMISTRY ORDERABLES [facility] [place] [address] documented in this encounter Visit Diagnoses Diagnosis Hyperglycemia Other abnormal glucose Hyperlipidemia, unspecified hyperlipidemia type Coronary artery disease involving kluti kaah coronary artery, angina presence unspecified, unspecified whether kluti kaah or transplanted heart documented in this encounter
--- OUTSIDE RECORDS SUMMARY | 2024-03-29 03:35 | XMS_ITS | Encounter Summary ---
[place] [address] Care Team Providers Care Meat Scrubber Name Role Phone Andrew Novak APRN Primary Care Provider [phone]- [phone] Reason for Visit * Reason Comments Medication Management Patient Education Encounter Details Date Type Department Care Team ([facility] st Contact Info) Description 01/14/2021 Specialty [place] [id number] Cherri Valdez Rosalba Social History Tobacco Use Types Packs/Day [...] of this encounter Progress Notes * Cherri Felix RPH - 01/14/2021 2:54 PM EDT Specialty Pharmacy Consultation; Cherri Felix RPH Comprehensive Medication Management (CMM): Specialty Consult, Opt Out Ginger Amador Diagnosis: Hyperlipidemia Therapy Start Date: 12/29/18 Contact in person or via telephone:phone Ms. Ginger Amador is a 85 y.o. (1935) female who was contacted in regard to specialty medication. Spoke with patient regarding Praluent. A review of the medication therapy was performed. The medication was refilled as scheduled, and all medication related questions and concerns were addressed. The specialty pharmacy staff will follow up with the patient 7 days prior to next refill. Is the patient willing to proceed with the Clinical Assessment? No Summary and Recommendations: The patient was feeling well today and not experiencing any side effects. She reports no problems with injection site reactions, cough, or myalgia. She also needs a refill of her ezetimibe and we will request this for her from the clinic. Encouraged the patient to continue monitoring her blood pressure at home as it was still mildly elevated on her last office visit although it has improved sincea year ago. Med list reviewed with no major interactions identified. The patient is aware of the importance of lab follow up and infection prevention precautions as well as adherence to treatment. The patient was instructed to notify the clinic of any upcoming procedures or new medications and OTC products. Administration technique, allergies, dosage, safe reviewed. The pharmacy's contact information and operating hours with on-call services were given to the patient both verbally and in writing. Economic Assessment: Patient is agreeable to medication copay: Yes Copay Amount: $0 Day Supply: 84 Date Needed: 01/23/21 Therapy Assessment: Appropriate Therapy: Yes Current Medication Dosing/Route/Frequency: Praluent 75mg/mL SQ every 21 days Additional equipment/supplies required: no [...] on exertion) R06.00 ??? Muscle cramps R25.2 Medications Reviewed: Yes Medications reconciled: Yes Allergies Reviewed:Yes Allergies reconciled: Yes Pharmacist follow-up needed: Yes Informed patient of specialty pharmacy services: Yes -Patient will be provided with welcome and rights packet: Yes Date to be provided: 01/18/2019 pickup -Patient is aware a licensed pharmacist is available 24 hours a day, 7 days a week to discuss medication-related questions or concerns: Yes -Patient verbalizes understanding of the common side effect profile of their medication. The patient is able to call 911 or seek urgent care if signs/symptoms of allergy or harmful adverse reactions occur: yes Patient understands no changes to current drug regimen were made at the appointment and that the pharmacist is providing recommendations (summary located at top of note) for provider review and follow up. Cherri Felix RPH 01/15/21 7:32 PM documented in this encounter Plan of Treatment Not on file documented as of this encounter Goals Goal Patient Goal Type Associated Problems Recent Progress Patient-Stated? Author LDL CALC < 70 Result Component No Michael Mckinnon RPH documented as of this encounter Visit Diagnoses Not on filedocumented in this encounter Care Teams Meat Scrubber Relationship Specialty Start Date End Date Andrew Novak, [facility] [address] [place] [address] [address] [facility] [address] [place] [address] PCP - General Family Medicine 08/15/20 09/18/23 documented as of this encounter
--- OUTSIDE RECORDS SUMMARY | 2024-03-29 03:35 | XMS_ITS | Encounter Summary ---
[place] [address] Care Team Providers Care Freezing Room Worker Name Role Phone Andrew Novak APRN Primary Care Provider [phone]- [phone] Reason for Visit * Reason Onset Date Comments Appointment 02/20/2021 Encounter Details Date Type Department Care Team (Late st Contact Info) Description 02/20/2021 [place] [address] Chon Snyder MD [facility] [place] [address] Appointment Social History Tobacco Use Types Packs/Day [...] on filedocumented in this encounter Care Teams Freezing Room Worker Relationship Specialty Start Date End Date Andrew Novak APRN [address] [place] [address] PCP - General Family Medicine 08/15/20 09/18/23 documented as of this encounter
--- OUTSIDE RECORDS SUMMARY | 2024-03-29 03:35 | XMS_ITS | Encounter Summary ---
Author Organization [facility] [place] [address] Care Team Providers Care Test Engine Operator Name Role Phone Unavailable Primary Care Provider Unavailabl e Encounter Details Date Type Department Care Team (Latest Contact Info) Description 05/07/2020 9:20 AM EDT Office Visit Cardiology at [address] [address] Anisha Vargas MD [facility] [place] [address] Hyperlipidemia, unspecified hyperlipidemia type; Coronary artery disease involving paiute-shoshone coronary artery, angina presence unspecified, unspecified whether paiute-shoshone or transplanted heart; Essential hypertension Social History Tobacco Use Types Packs/Day [...] Sign Reading Time Taken Comments Blood Pressure 153/76 05/07/2020 9:29 AM EDT Pulse 69 05/07/2020 9:29 AM EDT Temperature - - Respiratory Rate - - Oxygen Saturation 99% 05/07/2020 9:29 AM EDT Inhaled Oxygen Concentration - - Weight 75.3 kg (166 lb) 05/07/2020 9:29 AM EDT Height 154.9 cm (5' 1) 05/07/2020 9:29 AM EDT Body Mass Index 31.37 05/07/2020 9:29 AM EDT documented in this encounter Patient Instructions * Patient Instructions* Anisha Vargas MD - 05/07/2020 9:20 AM EDT Read about DASH diet Have blood tests and urinalysis today Record your blood pressure at least 2 times a week and write it down Bring your wrist device next time as well See me back in one moth documented in this encounter Progress Notes * Anisha Vargas MD - 05/07/2020 9:20 AM EDT CARDIOLOGY OUTPATIENT EVALUATION NOTE PRIMARY CARE PROVIDER: Jacob Foley DO REFERRING PROVIDER: Jacob Foley Patient ID: Ginger Amador is a 84 y.o. female. HPI: 05/07/20 Advanced Hypertension Program She is followed for General Cardiology by Dr. Dean Tilley, Dr. Nellie Mclaughlin for lipids. She presents today for evaluation of hypertension. She states that her blood pressure may peak to 180 and at other times goes down to 90 for systolic. She takes this at home with a wrist monitor. She has long-standing hypertension. She does follow low sodium diet, she has had nutrition counseling in the past. She does no regular exercise but is active managing a [employer]. She used to walk a mile with friends but due to back and muscle problems has not recently. She states that she is havingdiffuse muscle soreness (she is not on statin). She uses a cane for balance but is not dependent onthis. She has trouble with steps and must hang onto something while she climbs. She has been on and off amlodipine, she is currently on spironolactone and losartan. She has tried a lot of diuretics. Being off amlodipine has made her feel much better. She feels dehydrated being on a diuretic. She does not use NSAIDS much, she does take some fhxo-put-dsypcac supplements including herbal supplements (this clears her sinus--Kyolic which is garlic). She is not on any HRT, occ anti-acid preparation. She sleeps for 4 hours and then is awake but states that this has always been the case. She has a 20 min nap early in the afternoon but no other problem with falling asleep. She does not smoke, occ wine. She lives alone, no pets daughter and grandson near by. 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 ??? Status post coronary artery bypass grafting ? 09/24/2014 CABG x 4: DAUGHERTY to LAD, SVG to om, svg to diag, jerardo to rca. 10/11/2018 Nuclear stress test at [facility] to 6.5 METS showed predominantly fixed defect [...] at 59 LAD, possible inferior and lateral PA Labs 03/20/20 A1c 6.2 12/19/18 echocardiogram at [facility] Normal LV systolic, diastolic dysfunction, no significant valve abnormalities PROBLEM LIST: Problem List: 2019-01: LUNA (dyspnea on exertion) 2019-01: Muscle cramps 2018-09: Asthma 2015-07: Status post coronary artery bypass grafting 2015-06: CAD (coronary artery disease) 2015-06: Hypertension 2013-03: Actinic keratosis 2012-09: Verruca vulgaris 2012-09: Seborrheic keratosis MEDICATIONS: Current Outpatient Medications Medication Sig Dispense Refill ??? alirocumab 75 mg/mL Pen Injector Inject [...] file Occupational History ??? Not on file Social Needs ??? Financial resource strain: Not on file ??? Food insecurity Worry: Not on file Inability: Not on file ??? Transportation needs Medical: Not on file Non-medical: Not on file Tobacco Use ??? Smoking status: Never Smoker ??? Smokeless tobacco: Never Used Substance and Sexual Activity ??? Alcohol use: Yes Comment: Social ??? Drug use: No ??? Sexual activity: Not on file Comment: deferred Lifestyle ??? Physical activity Days per week: Not on file Minutes per session: Not on file ??? Stress: Not on file Relationships ??? Social connections Talks on phone: Not on file Gets together: Not on file Attends adventist service: Not on file Active member of club or organization: Not on file Attends meetings of clubs or organizations: Not on file Relationship status: Not on file ??? Intimate partner violence Fear of current or ex partner: Not on file Emotionally abused: Not on file Physically abused: Not on file Forced sexual activity: Not on file Other Topics Concern ??? 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 She has 3 children all daughters and 4 grandchildren 2 girls and 2 boys. 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 She enjoys the bed and breakfast, [place],reading. 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 Assessment and Plan: No problem-specific Assessment & Plan notes found for this encounter. Hypertension 1. Measurement by home wrist monitor may not be accurate --I will reach out to her PCP to see if she can stop by there for measurement OR her neighbor who is are retired nurse and will write this down 2. Labs today: renal, K+, urinalysis, TSH 3.repeat blood pressure noted above--137/72. She may have [place] Hypertension and we can consider 24 hour ambulatory BP monitor. She will have home measurements with a cuff machine 4. Advised to read about DASH diet, I also feel resumption of physical activity will be helpful (she will resume PT for her back) 5. At this time will not w/u for secondary causes but await results of testing and home readings This appointment was 40 minutes long and > 50% of the time was spent counseling,and coordinationof care. Anisha Vargas MD, Miesha, FACC, FNLA Attending Aircraft Magneto Mechanic documented in this encounter Plan of Treatment Not on file documented as of this encounter Goals Goal Patient Goal Type Associated Problems Recent Progress Patient-Stated? Author LDL CALC < 70 Result Component No Michael Mckinnon, [facility] documented as of this encounter Procedures Procedure Name Priority Date/Time Associated Diagnosis Comments HC THYROID STIMULATING HORMONE, SERUM Routine 05/07/2020 11:17 AM EDT Hyperlipidemia, unspecified hyperlipidemia type Coronary artery disease involving paiute-shoshone coronary artery, angina presence unspecified, unspecified whether paiute-shoshone or transplanted heart Essential hypertension BASIC METABOLIC PANEL Routine 05/07/2020 11:17 AM EDT Hyperlipidemia, unspecified hyperlipidemia type Coronary artery disease involving paiute-shoshone coronary artery, angina presence unspecified, unspecified whether paiute-shoshone or transplanted heart Essential hypertension HC UA W/OUT MICROSCOPIC Routine 05/07/2020 11:10 AM EDT Hyperlipidemia, unspecified hyperlipidemia type Coronary artery disease involving paiute-shoshone coronary artery, angina presence unspecified, unspecified whether paiute-shoshone or transplanted heart Essential hypertension EKG 12-LEAD Routine 05/07/2020 9:38 AM EDT Hyperlipidemia, unspecified hyperlipidemia type Coronary artery disease involving paiute-shoshone coronary artery, angina presence unspecified, unspecified whether paiute-shoshone or transplanted heart Essential hypertension documented in this encounter Results * TSH (05/07/2020 11:17 AM EDT) Thyroid Stimulating Hormone 2.97 0.27 - 4.20 mcIU/mL [facility] Blood specimen (specimen) 05/07/2020 11:17 AM EDT 05/07/2020 11:42 AM EDT Narrative Resulting Agency Comment Spec In Lab Anisha Vargas MD CHEMISTRY ORDERABLES [facility] [place] [address] * Basic Metabolic Panel (non-fasting) (05/07/2020 11:17 AM EDT) Glucose 97 65 - 199 mg/dL [facility] Comment:Diabetes: >=200 mg/d L plus symptoms Blood Urea Nitrogen 18 8 - 18 mg/dL [facility] Creatinine 0.83 0.70 - 1.20 mg/dL [facility] Sodium 140 135 - 145 mmol/L [facility] Potassium 4.4 3.5 - 5.0 mmol/L [facility] Comment: Please note: ??Patients with WBC >100,000 may have falsely elevated Potassium levels. ??For accurate Potassium quantification in these patients send serum separator tube (gold top) for subsequent determinations. ??Contact the Clinical Chemistry Laboratory if there are any questions. Chloride 103 98 - 107 mmol/L [facility] Carbon Dioxide 26 22 - 31 mmol/L [facility] Anion Gap 11 5 - 15 mmol/L [facility] Calcium 9.7 8.5 - 10.5 mg/dL [facility] Est Glomerular Filtration Rate 66 >=60 mL/min/1. 73 m?? [facility] Comment: The eGFR was calculated using the CKD-EPI equation. As with all creatinine based estimates of kidney function, eGFR values calculated with the CKD-EPI equation are not accurate in patients with acute kidney failure, extremes of body mass or the acutely ill. http://[facility] eGFR 76 >=60 mL/min/1. 73 m?? [facility] Comment: The eGFR was calculated using the CKD-EPI equation. As with all creatinine based estimates of kidney function, eGFR values calculated with the CKD-EPI equation are not accurate in patients with acute kidney failure, extremes of body mass or the acutely ill. http://[facility] Blood specimen (specimen) 05/07/2020 11:17 AM EDT 05/07/2020 11:42 AM EDT Narrative Resulting Agency Comment Spec In Lab Anisha Vargas MD CHEMISTRY ORDERABLES [facility] [place] [address] * Urinalysis without microscopic (05/07/2020 11:10 AM EDT) Glucose, Urine Dipstick Negative Negative mg/dL [facility] Protein, Urine Dipstick Negative Negative mg/dL [facility] Bilirubin, Urine Dipstick Negative Negative mg/dL [facility] Comment: Clinical correlation required for positive Urine Bilirubin results as false positive may occur with some drugs and drug related products. If a false positive is suspected a serum total bilirubin should be considered if clinically indicated. Urobilinogen, Urine Dipstick Normal Normal mg/dL [facility] pH, Urn (dipstick) 6.5 5.0 - 8.0 [facility] Blood, Urine Dipstick Negative Negative mg/dL [facility] Ketone, Urine Dipstick Negative Negative mg/dL [facility] Nitrite, Urine Dipstick Negative Negative [facility] Leukocytes, Urine Dipstick Negative Negative [facility] Appearance, Urine Dipstick Clear Clear [facility] Specific [place] Urine Automated 1.008 1.006 - 1.030 [facility] Color, Urine Dipstick Yellow Yellow [facility] Urine specimen (specimen) 05/07/2020 11:10 AM EDT 05/07/2020 11:45 AM EDT Narrative Resulting Agency Comment Spec In Lab Anisha Vargas MD URINE ORDERABLES [facility] [place] [address] * EKG 12 Lead (05/07/2020 9:38 AM EDT) Ventricular rate 57 BPM MUSE SYSTEM Atrial Rate 57 BPM MUSE SYSTEM P-R Interval 182 ms MUSE SYSTEM QRS Duration 98 ms MUSE SYSTEM Q-T Interval 416 ms MUSE SYSTEM QTC Calculated (Bezet) 404 ms MUSE SYSTEM Calculated P [place] 72 degrees MUSE SYSTEM Calculated R [place] -68 degrees MUSE SYSTEM Calculated T [place] 110 degrees MUSE SYSTEM INTERPRETATION Sinus bradycardia with sinus arrhythmia Left axis deviation Poor R wave progression T wave abnormality, consider lateral ischemia Abnormal ECG When compared with ECG of 30-JAN-2019 15:35, No significant change was found Confirmed by Conchita Mills ([id number]) on 05/07/2020 1:44:49 PM MUSE SYSTEM 05/07/2020 9:38 AM EDT 05/07/2020 1:44 PM EDT Anisha Vargas MD ECG ORDERABLES MUSE SYSTEM documented in this encounter Visit Diagnoses Diagnosis Hyperlipidemia, unspecified hyperlipidemia type Coronary artery disease involving paiute-shoshone coronary artery, angina presence unspecified, unspecified whether paiute-shoshone or transplanted heart Essential hypertension Unspecified essential hypertension documented in this encounter
--- OUTSIDE RECORDS SUMMARY | 2024-03-29 03:35 | XMS_ITS | Encounter Summary ---
[place] [address] Care Team Providers Care Materials Intern Name Role Phone Andrew Novak APRN Primary Care Provider [phone]- [phone] Reason for Visit * Reason Onset Date Comments TeleHealth 11/11/2021 Encounter Details Date Type Department Care Team (Late st Contact Info) Description 11/11/2021 [place] [address] Chon Snyder MD [facility] [address] TeleHealth Social History Tobacco Use Types Packs/Day Years [...] encounter Miscellaneous Notes * Telephone Encounter - Cece Reynoso RN - 11/11/2021 12:50 PM EDT Unable to reach this patient by phone to review their medications and allergies prior to their upcoming tele-appointment with the Neurology provider. No message left. documented in this encounter Plan of Treatment Not on file documented as of this encounter Goals Goal Patient Goal Type Associated Problems Recent Progress Patient-Stated? Author LDL CALC < 70 Result Component No Michael Mckinnon, [facility] documented as of this encounter Visit Diagnoses Not on filedocumented in this encounter Care Teams Materials Intern Relationship Specialty Start Date End Date Andrew Novak APRN [address] [place] [address] PCP - General Family Medicine 08/15/20 09/18/23 documented as of this encounter
--- OUTSIDE RECORDS SUMMARY | 2024-03-29 03:35 | XMS_ITS | Encounter Summary ---
[place] [address] Care Team Providers Care Sizing End Bander Name Role Phone Unavailable Primary Care Provider Unavailabl e Reason for Visit * Reason Onset Date Comments Prior Authorization 07/30/2019 Praluent 75m g/mL Encounter Details Date Type Department Care Team ([facility] Contact Info) Description 07/30/2019 [place] [id number] Gemma Ordonez Prior Authorization (Praluent 75mg/mL ) Social History Tobacco Use Types Packs/Day Years [...] encounter Miscellaneous Notes * Telephone Encounter - Christophe Carrington - 07/31/2019 8:37 AM EST [facility], Prior Authorization Approval Medication Name: Praluent FILLABLE AT [facility]? yes APPROVAL DATES: 07/30/2019 - 08/14/2020 SPECIFIC INS REQUIREMENT: N/A CASE/REFERENCE # [id number] APPROVAL NOTIFICATION RECEIVED VIA: Fax COPAY: $[phone] COPAY ASSISTANCE NEEDED?: No NOTES: The Praluent reauthorization has been approved under the new frequency of injecting one pen every 28 days. * Telephone Encounter - Gemma Ordonez - 07/30/2019 10:44 AM EST [facility], Medication Prior Authorization Patient: Ginger Amador Patient : 1935 Patient Address: [address] [address] (home) Medication: Praluent Subscriber Insurance: [employer] (Part D) Physician: Nellie Mclaughlin Sent Via: Fax Torres: Ref/Case/PA#: Medication Strength Frequency Requested: 75mg/mL once every 28 days Qty/Day Supply: 09/11 New Start: No Diagnosis & ICD-10 Code: I25.10 Coronary artery disease documented in this encounter Plan of Treatment Not on file documented as of this encounter Visit Diagnoses Not on filedocumented in this encounter
--- OUTSIDE RECORDS SUMMARY | 2024-03-29 03:35 | XMS_ITS | Encounter Summary ---
Author Organization [facility] [place] [address] Care Team Providers Care Sand Molder Name Role Phone Andrew Novak APRN Primary Care Provider [phone]- [phone] Reason for Visit * Reason Comments Neck Pain * Consultation (Routine) - Closed Specialty Diagnoses / Procedures Referred By Contac t Referred To Contact Neurosurgery Diagnoses Neuropathy Weakness of both hands Cervical myelopathy with cervical radiculopathy Carpal tunnel syndrome, bilateral Chon Snyder MD [facility] [place] [address] Angelo Pulido MD [facility] [address] [place] [address] Referral ID Status Reason Start Date Expiration Date V isits Requested Visits Authorized [id number] Closed Consult, Test & Treat 08/28/2021 08/28/2022 1 1 Encounter Details Date Type Department Care Team (Late st Contact Info) Description 10/19/2021 11:00 AM EST Office Visit [facility] [place] [address] Angelo Pulido MD [facility] [address] [place] [address] Cervical spondylosis Social History Tobacco Use Types Packs/Day Years [...] Sign Reading Time Taken Comments Blood Pressure 177/58 10/19/2021 10:49 AM EST Pulse 75 10/19/2021 10:49 AM EST Temperature - - Respiratory Rate - - Oxygen Saturation - - Inhaled Oxygen Concentration - - Weight 72.6 kg (160 lb) 10/19/2021 10:49 AM EST Height 154.9 cm (5' 1) 10/19/2021 10:49 AM EST Body Mass Index 30.23 10/19/2021 10:49 AM EST documented in this encounter Progress Notes * Angelo Pulido MD - 10/19/2021 11:00 AM EST Ginger Amador upon whom I performed bilateral carpal tunnel releases on in 2003 and 2004. Her more recent problem is increasing difficulty in use of her hands, with atrophy atrophy of the intrinsic hand muscles, difficulty walking with unsteadiness of her gait which has required her to use a cane over the last year and increasing difficulty in using her hands. Her hands feel numb to her. She has had some occasional bladder leakage. Her past medical history is significant for coronary artery disease for which she underwent bypass procedure about 4 years ago, borderline diabetes and asthma. Past surgical history is significant for her previously mentioned carpal tunnel releases and coronary surgery as well as bilateral breast reductions, tonsillectomy, hysterectomy and bilateral knee replacements. She does not smoke. 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 On examination this is a woman with a stated height of 5 feet 1 inches tall and a weight of 160 pounds for a BMI of 30. There is marked atrophy of the first dorsal interossei bilaterally right greater than left as well as atrophy of the thenar and hypothenar eminences of both hands. She does not have full finger extension in either hand but has reasonable finger flexion. Her wrist extension is 5 - elbow flexion and shoulder abduction are full. Lower extremity strength is full. Deep tendon reflexes have some spread in the upper extremities there is no clonus. Plantar responses are equivocal. Sensation is intact to light touch. Her gait is stiff and spastic in appearance Review of her EMG/NCS studies show a complex pattern. Review of her cervical MRI shows a cervical lordosis with multilevel spondylosis and spinal canal stenosis. We had a discussion on the options and the situation. She certainly does have some myelopathic features on exam as well as difficulty with ambulation and use of her hands that would be consistent with a cervical myelopathy. Consideration could be given to a cervical laminectomy and possibly lateralmass stabilization. We discussed that the main goal of this would be to try to prevent any further d eterioration and to maintain her independence as long as possible but given the extensive amount ofmuscle loss of her intrinsic hand muscles I am not optimistic that surgery would have a dramatic improvement in her function. We did review the risks of surgery include the risks of anesthesia, visual loss, infection, bleeding, injury to the spinal cord including the possibility of paralysis, C5 syndrome failure of the fusion and failure to improve her symptoms. We did discuss that the. Of recovery from this could be prolonged. At this time she is not inclined to be willing to undergo surgery. She knows if she would like to reconsider that this could call here and we could make an additional appointment. All questions were answered. documented in this encounter Plan of Treatment Not on file documented as of this encounter Goals Goal Patient Goal Type Associated Problems Recent Progress Patient-Stated? Author LDL CALC < 70 Result Component No Michael Mckinnon, [facility] documented as of this encounter Visit Diagnoses Diagnosis Cervical spondylosis Cervical spondylosis without myelopathy documented in this encounter Care Teams Sand Molder Relationship Specialty Start Date End Date Andrew Novak APRN [address] [place] [address] [address] PCP - General Family Medicine 08/15/20 09/18/23 documented as of this encounter
--- OUTSIDE RECORDS SUMMARY | 2024-03-29 03:35 | XMS_ITS | Encounter Summary ---
[place] [address] Care Team Providers Care Matcher Operator Name Role Phone Unavailable Primary Care Provider Unavailabl e Reason for Visit * Reason Onset Date Comments Other 04/01/2020 Encounter Details Date Type Department Care Team (Late st Contact Info) Description 04/01/2020 Telephone Cardiology at [address] [phone] Adrianna Cabello RN Other Social History Tobacco Use Types Packs/Day [...] encounter Miscellaneous Notes * Telephone Encounter - Adrianna Cabello RN - 04/01/2020 10:03 AM EDT Voice message received from Dr Nellie Mclaughlin requesting referral to Dr Jung for PCP assistance inmanaging difficult to control HTN. Dr Mclaughlin states Ginger is expecting a call from Dr Jung's office to discuss appointment date/time. Forward to Cardiology scheduling and Dr Jung (cc Dr Mclaughlin). documented in this encounter Plan of Treatment Not on file documented as of this encounter Goals Goal Patient Goal Type Associated Problems Recent Progress Patient-Stated? Author LDL CALC < 70 Result Component No Michael Mckinnon, [facility] documented as of this encounter Visit Diagnoses Not on filedocumented in this encounter
--- OUTSIDE RECORDS SUMMARY | 2024-03-29 03:35 | XMS_ITS | Encounter Summary ---
[facility] [place] [address] Care Team Providers Care Health Club Attendant Name Role Phone Andrew Novak APRN Primary Care Provider [phone]- [phone] Reason for Visit * Reason Onset Date Comments Bumped Appointment 07/22/2021 shuffle appoi ntment to 3pm Encounter Details Date Type Department Care Team (Late st Contact Info) Description 07/22/2021 [place] [address] Chon Snyder MD [facility] [place] [address] Bumped Appointment (shuffle appointment to 3pm) Social History Tobacco Use Types Packs/Day Years [...] encounter Miscellaneous Notes * Telephone Encounter - Diamond Borges - 07/23/2021 1:05 PM EST Left message stating appointment will be moved from 2pm to 3pm. * Telephone Encounter - Diamond Borges - 07/22/2021 1:13 PM EST Shuffle appointment to 3pm documented in this encounter Plan of Treatment Not on file documented as of this encounter Goals Goal Patient Goal Type Associated Problems Recent Progress Patient-Stated? Author LDL CALC < 70 Result Component No Michael Mckinnon, [facility] documented as of this encounter Visit Diagnoses Not on filedocumented in this encounter Care Teams Health Club Attendant Relationship Specialty Start Date End Date Andrew Novak, [facility] [address] [place] [address] [address] [place] [address] PCP - General Family Medicine 08/15/20 09/18/23 documented as of this encounter
--- OUTSIDE RECORDS SUMMARY | 2024-03-29 03:35 | XMS_ITS | Encounter Summary ---
[place] [address] Care Team Providers Care Set Staff Fitter Name Role Phone Unavailable Primary Care Provider Unavailabl e Encounter Details Date Type Department Care Team (Late st Contact Info) Description 07/30/2020 Specialty [place] [address] Doug Rios [facility] Social History Tobacco Use [...] as of this encounter Progress Notes * Doug Rios RPH - 07/30/2020 11:26 AM EST Specialty Pharmacy Consultation; Doug Rios RPH Comprehensive Medication Management (CMM) Ginger Amador Diagnosis: hyperlipidemia Therapy Start Date: 12/29/18 Contact in person or via telephone: telephone Ms. Ginger Amador is a 84 y.o. (1935) female who was contacted in regard to specialty medication. Spoke with patient regarding PRALUENT. A review of the medication therapy was performed. The medication was refilled as scheduled, and all medication related questions and concerns were addressed. The specialty pharmacy staff will follow up with the patient 5-7 days prior to next refill. Is the patient willing to proceed with the Clinical Assessment? Yes Summary and Recommendations: Provided 6-month follow up consultation and assessment with Ginger regarding her Praluent. Ginger only takes the Praluent once monthly and has never been pleased with having to do the injection, but acknowledges that the combination with ezetimibe has been very successful, with her most recent LDL being at goal < 70mg/dL, and notes that this therapy will be a lifetime thing. She had some troubleusing the device at one time but the last couple of injections have gone fine, and she is aware of safe handling, storage, and use. Ginger did not need any drug information but did ask if there was anyproblem getting the Covid vaccine while using Praluent. I let her know that this information is notavailable at this time but that there are no known interactions with Praluent and other drugs or vaccines, so my expectation is that it is fine for her to be immunized for Covid. We both agreed that she should discuss this with her provider. We reviewed her allergies but she did not recognize many of the antibiotics on the list (bacitracin, polymixin-B, gramicidin-D) but she did recall the neomycin. I suggested that she may have had a reaction to a topical triple antibiotic ointment or similar in the past and perhaps best to leave them on for now. We also reconciled her medication list. Askedabout her quality of life, Ginger said she's sort of lonely being isolated because of Covid. 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 Shehopes that things turn around after Easter by the summer and fall, so visitors can come back. Lastly we reviewed home safety. Ginger is still able to do a little shoveling outside her door and maintaina safe environment because she has the B&B. Clinic follow-up needed: yes - Ginger said she has a FUV scheduled with Dr. Mclaughlin. Allergies and Drug intolerance: Allergies Allergen Reactions ??? Bacitracin ??? Gabapentin Other (See Comments) [place] like a zombie ??? Gramicidin D ??? Ibuprofen ??? Lidocaine ??? Neomycin Sulfate ??? Neosporin [Hydrocortisone] ??? Polymyxin B ??? Polymyxin B Sulfate ??? Soy ??? Jaxlrji-Jch-Pio Reductase Inhibitors Other (See Comments) Muscle soreness/weakness, fatigue ??? Sulfa (Sulfonamide Antibiotics) ??? Wheat Nausea And Vomiting Extreme fatigue and sleepiness Problem List: Patient Active Problem List Diagnosis Code ??? 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 Seborrheic keratosis L82.1 ??? Actinic keratosis L57.0 ??? CAD (coronary artery disease) I25.10 ??? Hypertension I10 ??? 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 Asthma J45.909 ??? LUNA (dyspnea on exertion) R06.00 ??? Muscle cramps R25.2 Special Dietary or Hydration Requirements: yes - low sodium diet There is no height or weight on file to calculate BMI. Medication Reconciliation Discrepancies (compared to [facility] med list) yes - noted that she only uses spironolactone 1/2 tablet once a day unless she senses excess fluids Medication Adherence Patient reported X missed doses in the last month: 0 Any gaps in refill history greater than 2 weeks in the last 3 months: no Demonstrates understanding of importance of adherence: yes Informant: patient Reliability of informant: reliable Provider-estimated medication adherence level: 90-100% Adherence tools used: directed education Support network for adherence: healthcare provider Confirmed plan for next specialty medication refill: delivery by pharmacy Medication List: Current Outpatient Medications Medication Sig Note Dispense Refill ??? cholecalciferol, Vitamin D3, 10 [...] Alternates 12.5 and 25 every other day 07/30/2020: Only takes one-half daily 0 ??? losartan (COZAAR) 100 mg Tablet [...] by mouth daily. 30 tablet 3 ??? nitroGLYcerin (NITROSTAT) 0.4 mg Tablet, Sublingual Place 1 tablet under the tongue every 5 minutes as needed for Chest pain. 07/30/2020: Has not been needed 90 tablet 12 No current facility-administered medications for this visit. Most Recent Vitals: Ht Readings from Last 1 Encounters: 05/07/20 154.9 cm (5' 1) Wt Readings from Last 3 Encounters: 05/07/20 75.3 kg (166 lb) 03/21/20 77.4 kg (170 lb 9.6 oz) 07/27/19 72.8 kg (160 lb 9.6 oz) Temp Readings from Last 3 Encounters: 07/29/15 36.5 ??C (97.7 ??F) (Oral) 07/02/15 36.8 ??C (98.2 ??F) (Oral) BP Readings from Last 3 Encounters: 05/07/20 153/76 03/21/20 161/66 07/27/19 173/66 Pulse Readings from Last 3 Encounters: 05/07/20 69 03/21/20 51 07/27/19 56 Pertinent Lab values: Lab Results Component Value Date NA 140 05/07/2020 K 4.4 05/07/2020 CL 103 05/07/2020 CO2 26 05/07/2020 BUN 18 05/07/2020 CREATININE 0.83 05/07/2020 GLUCOSE 97 05/07/2020 GLUCFASTING 136 (H) 07/25/2015 CALCIUM 9.7 05/07/2020 No results found for: ALT, AST, GGT, ALKPHOS, BILITOT, BILIDIR, ALBUMIN, PROT Lab Results Component Value Date WBC 11.1 (H) 07/27/2015 HGB 10.4 (L) 07/27/2015 HCT 32.6 (L) 07/27/2015 MCV 82.7 07/27/2015 PLATELET 128 (L) 07/27/2015 No results found for: HA1C Immunization History Administered Date(s) Administered ??? Influenza Vaccine, Whole 06/28/2005 ??? Td, adult 10/09/2003 Assessment and Recommendations: Title Type of Medication Management: chronic disease management, targeted medication review Referred By: provider Recipient: beneficiary Provider: plan sponsor pharmacist Visit Type: [facility] [place] Method of Contact: by telephone Cognitive Ability: good Cognitive Impairment Status Verified this Year: no Patient Counseling Counseled the patient on the following: doses and administration discussed, safe handling, storage, and disposal discussed, possible adverse effects and management discussed, possible drug and prescription drug interactions discussed, possible drug and OTC drug and food interactions discussed, lab monitoring and follow-up discussed, therapeutic rationale discussed, cost of medications and cost implications discussed, adherence and missed doses discussed, pharmacy contact information discussed Drug Medication Management Summary Topics discussed: doses and administration discussed, safe handling, storage, and disposal discussed, possible adverse effects and management discussed, possible drug and prescription drug interactions discussed, possible drug and OTC drug and food interactions discussed, lab monitoring and follow-up discussed, therapeutic rationale discussed, cost of medications and cost implications discussed, adherence and missed doses discussed, pharmacy contact information discussed Number of adverse drug events identified: 0 Time spent: 46 - 60 min Treatment Outcomes 07/30/2020 1159 Disease progression: Stable Patient Overall Status: Stable Reviewed in detail with patient: Dose appropriateness based on recommended standard dosing Current medication list including OTC medications Medication and disease problems Allergies Comorbid conditions/ Problem List Past adverse events if any Special needs of the patient including physical and cognitive limitations Goals of therapy and management strategies Warnings, precautions, and contraindications Side effects Drug-drug and drug-food interactions Administration instructions including dose, frequency and method Handling, storage, and disposal Verifying expiration dates on products before use Rotating medication inventory to use oldest product first Relevant lab data Patient verbalizes understanding and is able to read-back instructions on self-administration/injection, proper storage, drug stability, importance of adherence and management strategies, side effectavoidance and mitigation strategies, and interruptions in therapy: Yes Physical and Cognitive Assessment: Functional limitations identified: no Cognitive limitations identified: no Concern regarding orientation/memory: no Concern with reasoning/judgement: no Is patient a fall risk: no Other needed information: no Social Assessment: Does the patient have a primary personal caregiver? no Does the patient have an emergency contact on file: Yes Does patient need referral to manager social work: No Does patient need referral to advocacy group: No Home Health Assessment: Is the patient in a safe home environment? Yes Is the patient able to store their medication as directed? Yes Does the patient have a support network at home? Yes Reviewed potential home safety hazards with patient: Yes Economic Assessment: Patient is agreeable to medication copay: yes Copay Amount: 0 Day Supply: 56 Date Needed: 08/17/2020 Copay assistance required: yes - [employer] Therapy Assessment: Current Medication Dosing/Route/Frequency: Praluent: Inject the contents of one pen (75mg) subcutaneously once a month. Appropriate Therapy: Yes Effective: yes - positive results noted Baseline LDL-C Level: 110 mg/dL Most Recent LDL-C Level: 52 mg/dL Patient-Reported Side Effects: no Patient Goals: Patient's specific desired goal: keep LDL less than 70 Measured by: LDL Time-frame to meet goal: measured twice a year at provider FUV Is the patient on track to achieve goals of therapy? yes Care Plan and Interventions: Care Plan Reviewed and Approved by both Pharmacist and Patient: Yes Did Care Plan Change? No Interventions (if applicable): No Patient experienced change in condition that affects treatment: no Additional care/services needed: no Educational information or adherence tools provided: Yes Additional equipment/supplies required: no Patient Counseling: Issues with Injection: no Rotation of Injection Sites: Yes Room Temperature Medication at Time of Injection: Yes Recent Infections: no Pharmacist follow-up needed: Yes Patient Satisfaction with Care/Services Provided: Yes Informed patient of specialty pharmacy services: Yes -Patient received welcome packet: yes - received Date Received: 01/18/2019 Delivery Method: shipped with Praluent -Patient returned signed Rights & Responsibilities: yes - received Date Received: 01/18/19 Delivery Method: shipped with Praluent -Patient is aware a licensed pharmacist is available 24 hours a day, 7 days a week to discuss medication-related questions or concerns: Yes -Patient verbalizes understanding of education on the common side effect profile of the medication:Yes -The patient is able to call 911 or seek urgent care if signs/symptoms of allergy or harmful adverse reactions occur: Yes Patient understands no changes to current drug regimen were made at the appointment and [facility]summary located at top of note) for provider review and follow up. Doug Rios RPH 07/30/20 11:59 AM documented in this encounter Plan of Treatment Not on file documented as of this encounter Goals Goal Patient Goal Type Associated Problems Recent Progress Patient-Stated? Author LDL CALC < 70 Result Component No Michael Mckinnon RPH documented as of this encounter Visit Diagnoses Not on filedocumented in this encounter
--- OUTSIDE RECORDS SUMMARY | 2024-03-29 03:35 | XMS_ITS | Encounter Summary ---
[place] [address] Care Team Providers Care Lunchroom Monitor Name Role Phone Andrew Novak APRN Primary Care Provider [phone]- [phone] Encounter Details Date Type Department Care Team (Late st Contact Info) Description 08/28/2021 [place] [id number] Chon Snyder MD [facility] [place] [address] Social History Tobacco Use Types Packs/Day Years [...] Encounter - Chon Snyder MD - 08/28/2021 2:06 PM EST Tried calling Ginger to review cervical MRI. Called x 2 no answer. LMOV asking for call back. Chon Snyder MD 08/28/2021 Senior Technical Trainer General Neurology and Clinical Neurophysiology [facility] Department of Neurology documented in this encounter Plan of Treatment Not on file documented as of this encounter Goals Goal Patient Goal Type Associated Problems Recent Progress Patient-Stated? Author LDL CALC < 70 Result Component No Michael Mckinnon, MARCELO documented as of this encounter Visit Diagnoses Not on filedocumented in this encounter Care Teams Lunchroom Monitor Relationship Specialty Start Date End Date Andrew Novak APRN [address] [place] [address] PCP - General Family Medicine 08/15/20 09/18/23 documented as of this encounter
--- OUTSIDE RECORDS SUMMARY | 2024-03-29 03:35 | XMS_ITS | Encounter Summary ---
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; Neuropathy; Muscle cramps Social History Tobacco Use [...] Procedure Name Priority Date/Time Associated Diagnosis Comments IMMUNOGLOBULIN FREE LIGHT CHAINS, SERUM Routine 08/27/2021 11:54 AM EST Neuropathy Muscle cramps HC C-REACTIVE PROTEIN Routine 08/27/2021 11:54 AM EST Neuropathy Muscle cramps MISCELLANEOUS LAB REQUEST Routine 08/27/2021 11:54 AM EST Neuropathy Muscle cramps HC LYME DISEASE, YAZAN Routine 11:54 AM EST Neuropathy Muscle cramps HC [facility] EXTRACTABLE NUCLEAR ANTIGEN Routine 08/27/2021 11:54 AM EST Neuropathy Muscle cramps MISC HERNANDEZ TEST-HERNANDEZ Routine 08/27/2021 1 1:54 AM EST HC [facility] ANTINEUTROPHIL CYTOPLASMIC ABS Routine 08/27/2021 11:54 AM EST Neuropathy Muscle cramps HC PROTEINASE-3 AUTOANTIBODIES Routine 08/27/2021 11:54 AM EST Neuropathy Muscle cramps HC MYELOPEROXIDASE AUTOANTIBODIES Routine 08/27/2021 11:54 AM EST Neuropathy Muscle cramps HC HEPATITIS B QUANTIFICATION Routine 08/27/2021 11:54 AM EST Neuropathy Muscle cramps HC [facility] GANGLIOSIDE AB Routine 08/27/2021 11:54 AM EST Neuropathy HC [facility] THIAMIN LVL(VITAMIN B1) WB-HERNANDEZ Routine 08/27/2021 11:54 AM EST Neuropathy Muscle cramps HC HEPATITIS C ANTIBODY Routine 08/27/2021 11:54 AM EST Neuropathy Muscle cramps HC CRYOGLOBULIN Routine 08/27/2021 11:54 AM EST Neuropathy Muscle cramps HC HIV SCREEN, 4TH GENERATION Routine 08/27/2021 11:54 AM EST Neuropathy Muscle cramps HC HEPATITIS B SURFACE AB Routine 08/27/2021 11:54 AM EST Neuropathy Muscle cramps HC ESR-SEDIMENTATION RATE, BLOOD Routine 08/27/2021 11:54 AM EST Neuropathy Muscle cramps HC RHEUMATOID FACTOR Routine 08/27/2021 11:54 AM EST Neuropathy Muscle cramps HC COMPLEMENT,C3 SERUM Routine 11:54 AM EST Neuropathy Muscle cramps HC COMPLEMENT C4, PLASMA Routine 08/27/2021 11:54 AM EST Neuropathy Muscle cramps HC P[facility] ANATITRE (ANDPATTERN) Routine 08/27/2021 11:54 AM EST Neuropathy Muscle cramps HC PCH VITAMIN B6 Routine 08/27/2021 11: 54 AM EST Neuropathy Muscle cramps HC SERUM PROT. 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 Flag ??Unit ??RefValue HMG-CoA Reductase Ab, S ? <20.0 ?CU ?<20.0 ?Test Performed by: ?[facility] ?[address] [place] [address] ?Stonecutter: Brando Lake M.D. Ph.D.; CLIA# [id number] [facility] Blood Venous Draw / Unknown 08/27/2021 11:54 AM EST 08/28/2021 2:46 PM EST Narrative Resulting Agency Comment Spec In Lab Jeff Coughlin MD LAB SEND OUT ORDERAB LES Performing Organization Address [facility] Co de Phone Number [facility] [address] * CRP, acute inflammation (08/27/2021 11:54 AM EST) C-Reactive Protein <3.0 <=4.9 mg/L [facility] Blood 08/27/2021 11:5 4 AM EST 08/27/2021 12:06 PM EST Narrative Resulting Agency Comment Spec In Lab Chon Snyder MD CHEMISTRY ORDERAB LES Performing Organization Address [facility] Co de Phone Number [facility] [place] [address] * Sedimentation rate (08/27/2021 11:54 AM EST) Pathologist [facility] Sedimentation Rate Automated 22 3 - 46 [...] MD HEMATOLOGY ORDERA BLES Performing Organization Address City/[facility]/ZIP Co de Phone Number [facility] [place] [address] * C3 Complement (08/27/2021 11:54 AM EST) [facility] Complement C3 149 90 - 180 mg/dL [facility] Blood 08/27/2021 11:5 4 AM EST 08/27/2021 12:06 PM EST Narrative Resulting Agency Comment Spec In Lab Chon Snyder MD CHEMISTRY ORDERAB LES Performing Organization Address [facility] Co de Phone Number [facility] [place] [address] * (ABNORMAL) C4 Complement (08/27/2021 11:54 AM EST) [facility] Complement C4 49(H) 10 - 40 mg/dL [facility] Blood 08/27/2021 11:5 4 AM EST 08/27/2021 12:06 PM EST Narrative Resulting Agency Comment Spec In Lab Chon Snyder MD CHEMISTRY ORDERAB LES Performing Organization Address [facility] Co de Phone Number [facility] [place] [address] * Protein Electrophoresis, serum (08/27/2021 11:54 AM EST) [facility] Total Prot Electrophoresis 6.9 6.1 - 8.0 [...] MD CHEMISTRY ORDERAB LES Performing Organization Address City/[facility]/ZIP Co de Phone Number [facility] [place] [address] * Free Light Chains, Serum (08/27/2021 11:54 AM EST) [place] Free Light Chain 1.76 0.72 - 2.75 mg/dL [facility] Lambda Free Light Chain 1.10 0.57 - 2.15 mg/dL [facility] [place]/Lambda FLC Ratio 1.6000 0.4000 - 2.5800 [facility] Blood 08/27/2021 11:5 4 AM EST 08/27/2021 12:06 PM EST Narrative Resulting Agency Comment Spec In Lab Chon Snyder MD CHEMISTRY ORDERAB LES Performing Organization Address City/[facility]/ZIP Co de Phone Number [facility] [place] [address] * HIV Screen, 4th Generation ([facility]/CGP/APD/NLH) (08/27/2021 11:54 AM EST) HIV Ab/Ag Screen [...] MD CHEMISTRY ORDERAB LES Performing Organization Address [facility]/ZIP Co de Phone Number [facility] [place] [address] * Hepatitis C Antibody (08/27/2021 11:54 AM EST) Hepatitis C Antibody Negative Negative [facility] Blood 08/27/2021 11:5 4 AM EST 08/27/2021 12:06 PM EST Narrative Resulting Agency Comment Spec In Lab Cohn Snyder MD CHEMISTRY ORDERAB LES Performing Organization Address [facility] Co de Phone Number [facility] [place] [address] * Hepatitis B Surface Antibody (08/27/2021 11:54 AM EST) Hepatitis B Surface Antibody, Quantitative <3.5 IU/L [facility] Comment: HepB Surface Ab Quant: Unvaccinated: < 8.5 IU/L Vaccinated: > 11.5 IU/L Hepatitis B Surface Antibody Negative [facility] Comment: Patient is presumed to be not vaccinated or immune to HBV infection. Expected Results: Vaccinated: Positive Unvaccinated: Negative Blood 08/27/2021 11:5 4 AM EST 08/27/2021 12:06 PM EST Narrative Resulting Agency Comment Spec In Lab Chon Snyder MD CHEMISTRY ORDERAB LES Performing Organization Address City/[facility]/ZIP Co de Phone Number [facility] [address] * Hepatitis B DNA, quantitative, PCR (08/27/2021 11:54 AM EST) Pathologist [facility] Hepatitis B DNA, quantitative, PCR Result: <10 [...] MD MOLECULAR ORDERAB LES Performing Organization Address [facility]/ZIP Co de Phone Number [facility] [place] [address] * Lyme IgG & IgM Antibody (08/27/2021 11:54 AM EST) Pathologist [facility] Lyme Antibody Neg Neg [facility] Blood 08/27/2021 11:5 4 AM EST 08/28/2021 5:34 AM EST Narrative Resulting Agency Comment Spec In Lab Chon Snyder MD IMMUNOLOGY ORDERA BLES Performing Organization Address [facility] Co de Phone Number [facility] [place] [address] * Extractable Nuclear Antigen (WALTER) Ab (08/27/2021 11:54 AM EST) Pathologist [facility] WALTER Ab Test ?Result ? Flag ??Unit ??RefValue Ab to Extractable Nuclear Ag Eval,S ??SS-A/Ro Ab, IgG, S ?<0.2 ? U ? <1.0 (Negative) ??SS-B/La Ab, IgG, S ?<0.2 ? U ? <1.0 (Negative) ??Sm Ab, IgG, S ? <0.2 ? U ? <1.0 (Negative) ??SDV PILOT/NAVIGATOR/DDS OPERATOR Ab, IgG, S ?<0.2 ? U ? <1.0 (Negative) ??Scl 70 Ab, IgG, S ? <0.2 ? U ? <1.0 (Negative) ??Mere 1 Ab, IgG, S ? <0.2 ? U ? <1.0 (Negative) ?Test Performed by: ?[facility] [address] ?[address] [place] [address] ?Stonecutter: Brando Lake M.D. Ph.D.; CLIA# [id number] [facility] Blood 08/27/2021 11:5 4 AM EST 08/27/2021 2:32 PM EST Narrative Resulting Agency Comment Spec In Lab Chon Snyder MD LAB SEND OUT BYRON GUTHRIE [facility] [place] [address] * TAMIE (08/27/2021 11:54 AM EST) TAMIE Ab Screen Test ?Result ? Flag ??Unit ??RefValue Antinuclear Ab, HEp-2 ? <1:80 (Negative) ? <1:80 (Negative) ??Substrate, S ? ADDITIONAL INFORMATION --------- ?Method: Immunofluorescence using HEp-2 cellular substrate. ?Test Performed by: ?[facility] ?[address] [place] [address] ?Stonecutter: Brando Lake M.D. Ph.D.; CLIA# [id number] [facility] Blood 08/27/2021 11:5 4 AM EST 08/27/2021 2:32 PM EST Narrative Resulting Agency Comment Spec In Lab Chon Snyder MD LAB SEND OUT ORDE RABLES Performing Organization Address City/[facility]/ZIP Co de Phone Number [facility] [place] [address] * Rheumatoid factor, quant (08/27/2021 11:54 AM EST) Rheumatoid Factor <10 <=14 IU/mL [facility] Blood 08/27/2021 11:5 4 AM EST 08/27/2021 12:06 PM EST Narrative Resulting Agency Comment Spec In Lab Chon Snyder MD CHEMISTRY ORDERAB LES Performing Organization Address [facility] Co de Phone Number [facility] [place] [address] * Cytoplasmic Neutrophilic Ab (08/27/2021 11:54 AM EST) C-Anca (DECEMBER) Negative Negative [facility] Comment: Test Performed by: [place] [address] Stonecutter: Brando Lake M.D. Ph.D.; CLIA# [id number] P-Anca (DECEMBER) Negative Negative [facility] Comment: Negative for cANCA and pANCA patterns by immunofluorescence. ADDITIONAL INFORMATION This test was developed and its performance characteristics determined by [facility] in a manner consistent with CLIA requirements. This test has not been cleared or approved by the U.S. Food and Drug Administration. Test Performed by: [place] [address] Stonecutter: Brando Lake M.D. Ph.D.; CLIA# [id number] Blood 08/27/2021 11:5 4 AM EST 08/27/2021 2:32 PM EST Narrative Resulting Agency Comment Spec In Lab Chon Snyder MD LAB SEND OUT BYRON GUTHRIE Performing Organization Address [facility] Co de Phone Number [facility] [place] [address] * Myeloperoxidase Ab (08/27/2021 11:54 AM EST) Myeloperoxidase Antibody <0.3 <=3.4 unit/mL [facility] [...] MD IMMUNOLOGY ORDERA BLES Performing Organization Address [facility] Co de Phone Number [facility] [place] [address] * Proteinase-3 Antibody (08/27/2021 11:54 AM EST) [...] MD IMMUNOLOGY ORDERA BLES Performing Organization Address [facility] Co de Phone Number [facility] [place] [address] * Cryoglobulin (08/27/2021 11:54 AM EST) Cryoglobulin See Note [facility] Comment: Cryoglobulins negative at 24 and 72 hours. Identification of cryoglobulins is dependent upon appropriate sample handling. False negative results may occur if the proper sample handling steps are not followed. This test was developed and its performance characteristics determined by [facility]. It has not been cleared or approved [...] MD CHEMISTRY ORDERAB LES Performing Organization Address City/[facility]/ZIP Co de Phone Number [facility] [place] [address] * (ABNORMAL) CK (08/27/2021 11:54 AM EST) Creatine Kinase 185(H) 0 - 160 unit/L [facility] Blood 08/27/2021 11:5 4 AM EST 08/27/2021 12:06 PM EST Narrative Resulting Agency Comment Spec In Lab Chon Snyder MD CHEMISTRY ORDERAB LES Performing Organization Address City/[facility]/ZIP Co de Phone Number [facility] [place] [address] * Vitamin B12 (08/27/2021 11:54 AM EST) Vitamin B12 452 232 - 1,245 pg/mL [facility] Blood 08/27/2021 11:5 4 AM EST 08/27/2021 12:06 PM EST Narrative Resulting Agency Comment Spec In Lab Chon Snyder MD CHEMISTRY ORDERAB LES Performing Organization Address City/[facility] Co de Phone Number [facility] [place] [address] * Vitamin B6 (08/27/2021 11:54 AM EST) Vitamin B6 (DECEMBER) 42 5 - 50 mcg/L [facility] Comment: ADDITIONAL INFORMATION This test was developed and its performance characteristics determined by [facility] in a manner consistent with CLIA requirements. This test has not been cleared or approved by the U.S. Food and Drug Administration. Test Performed by: [facility] [place] [address] Stonecutter: Brando Lake M.D. Ph.D.; CLIA# [id number] Blood 08/27/2021 11:5 4 AM EST 08/27/2021 2:45 PM EST Narrative Resulting Agency Comment Spec In Lab Chon Snyder MD LAB SEND OUT BYRON GUTHRIE Performing Organization Address [facility] de Phone Number [facility] [place] [address] * Vitamin B1, whole blood (08/27/2021 11:54 AM EST) Vit B1 Lvl Wb (DECEMBER) 175 70 - 180 nmol/L [facility] Comment: ADDITIONAL INFORMATION This test was developed and its performance characteristics determined by [facility] in a manner consistent with CLIA requirements. This test has not been cleared or approved by the U.S. Food and Drug Administration. Test Performed by: [facility] [employer] - [address] [address] Stonecutter: Brando Lake M.D. Ph.D.; CLIA# [id number] Blood 08/27/2021 11:5 4 AM EST 08/27/2021 2:45 PM EST Narrative Resulting Agency Comment Spec In Lab Chon Snyder MD LAB SEND OUT BYRON GUTHRIE [facility] [place] [address] * Miscellaneous Lab request (08/27/2021 11:54 AM EST) Label Request received in lab. [facility] Blood 08/27/2021 11:5 4 AM EST 08/27/2021 12:04 PM EST Narrative Resulting Agency Comment Spec In Lab Chon Snyder MD LAB SEND OUT ORDE RABLES Performing Organization Address [facility]/ZIP Co de Phone Number [facility] [place] [address] * Hepatic Function Panel (08/27/2021 11:54 AM [...] MD CHEMISTRY ORDERAB LES Performing Organization Address City/[facility]/ZIP Co de Phone Number [facility] [place] [address] * Ganglioside Antibodies (08/27/2021 11:54 AM EST) Ganglioside Antibodies See Scan Report [facility] Comment:Test performed by [facility], [address] [place] [id number] Blood 08/27/2021 11:5 4 AM EST 08/27/2021 2:58 PM EST Narrative Resulting Agency Comment Spec In Lab Chon Snyder MD LAB SEND OUT BYRON Calabrese Organization Address City/State/ZIP Co de Phone Number [facility] [place] [address] * Lipid Panel (Reflex Direct LDL) (08/27/2021 11:54 AM EST) Cholesterol, Total 111 mg/dL [facility] Comment: Lower Risk: <200 mg/dL Average Risk: 200-239 mg/dL Higher Risk: >tz=819 mg/dL Triglyceride 94 mg/dL [facility] Comment: Average Risk/Lower Risk: <150 mg/dL Borderline High Risk: 150-199 mg/dL High Risk: 200-499 mg/dL Very High Risk: >vy=257 mg/dL HDL Cholesterol 54 mg/dL [facility] Comment: Males: ?? Higher Risk: <40 mg/dL Females: ?? Higher Risk: <50 mg/dL LDL Cholesterol 38 mg/dL [facility] Comment: Lowest Risk: <100 mg/dL Lower Risk: 100-129 mg/dL Borderline High Risk: 130-159 mg/dL High Risk: 160-189 mg/dL Very High Risk: >vw=455 mg/dL Cholesterol/HDL Ratio 2.1 ratio [facility] Lipid Interpretation See Note [facility] Comment: Lipid management should be guided by a patient? s ASCVD risk, goals and preferences. ACC/AHA Guidelines recommend high intensity statin if clinical ASCVD or LDL greater than or equal to 190 mg/dL. http://[facility]osticsurl.com/FRM-XYP-Iapushyvr Adults aged 40-75 with LDL 70-189 mg/dL should have their 10 year ASCVD risk estimated with the ACC/AHA ASCVD risk estimator and drafter supervisor http://tools.acc.org/GNUZC-Eirw-Gdqdnlukx/ Statin should be discussed if risk greater [...] Narrative Resulting Agency Comment Spec In Lab Nellie Mclaughlin MD CHEMISTRY ORDERABLES [facility] [place] [address] * Lipid Panel (Reflex Direct LDL) (08/27/2021 11:54 AM EST) Cholesterol, Total 112 mg/dL [facility] Comment: Lower Risk: <200 mg/dL Average Risk: 200-239 mg/dL Higher Risk: >gk=930 mg/dL Triglyceride 92 mg/dL [facility] Comment: Average Risk/Lower Risk: <150 mg/dL Borderline High Risk: 150-199 mg/dL High Risk: 200-499 mg/dL Very High Risk: >er=792 mg/dL HDL Cholesterol 54 mg/dL [facility] Comment: Males: ?? Higher Risk: <40 mg/dL Females: ?? Higher Risk: <50 mg/dL LDL Cholesterol 40 mg/dL [facility] Comment: Lowest Risk: <100 mg/dL Lower Risk: 100-129 mg/dL Borderline High Risk: 130-159 mg/dL High Risk: 160-189 mg/dL Very High Risk: >dc=708 mg/dL Cholesterol/HDL Ratio 2.1 ratio [facility] Lipid Interpretation See Note [facility] Comment: Lipid management should be guided by a patient? s ASCVD risk, goals and preferences. ACC/AHA Guidelines recommend high intensity statin if clinical ASCVD or LDL greater than or equal to 190 mg/dL. http://[facility]osticsurl.com/CNC-AAY-Oedxadxhk Adults aged 40-75 with LDL 70-189 mg/dL should have their 10 year ASCVD risk estimated with the ACC/AHA ASCVD risk estimator and drafter supervisor http://tools.acc.org/UIYGK-Wogw-Nggumaazd/ Statin should be discussed if risk greater [...] Narrative Resulting Agency Comment Spec In Lab Nellie Mclaughlin MD CHEMISTRY ORDERABLES [facility] [place] [address] * (ABNORMAL) Hemoglobin A1c (08/27/2021 11:54 AM EST) Hemoglobin A1c 6.0(H) 4.3 - 5.6 % [facility] Comment: Reference Range: 4.3 - [...] Mellitus, Diabetes Care 2013; 36: Suppl. 1, S67-32 Estimated Average Glucose See note mg/dL [facility] Comment: Estimated Average Glucose not [...] into estimated average glucose values. ??Diabetes Care 2008:31(8):7875-5185. Blood 08/27/2021 11:5 4 AM EST 08/27/2021 12:06 PM EST Narrative Resulting Agency Comment Spec In Lab Nellie Mclaughlin MD CHEMISTRY ORDERABLES [facility] [place] [address] * Glucose, fasting (08/27/2021 11:54 AM EST) Glucose Fasting 94 65 - 99 mg/dL [facility] Comment: ?Fasting* Glucose Interpretive Criteria [...] of Diabetes Mellitus, Position Statement from the [place] [employer]. 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
--- OUTSIDE RECORDS SUMMARY | 2024-03-29 03:35 | XMS_ITS | Encounter Summary ---
Author Organization [facility] [place] [address] Care Team Providers Care Shank Boner Name Role Phone Unavailable Primary Care Provider Unavailabl e Reason for Visit * Reason Comments Medication Management Patient Education Encounter Details Date Type Department Care Team ([facility] st Contact Info) Description 12/21/2019 Specialty [place] [phone] Gilmer Martins [facility] Social History Tobacco [...] Progress Notes * Gilmer Martins RPH - 12/21/2019 4:55 PM EDT Clinical Management Plan: Refill Specialty Pharmacy Consultation; Gilmer Martins [facility] Comprehensive Medication Management (CMM) Ginger Mario [...] patient 5-7 days prior to next refill. With Ginger's permission I enrolled her her in [facility] for hyperlipidemia. Her copay went from $95to 0 She requested an rx for ezetimibe also Was a change made to the Care Plan: no If yes, should the medication be held: No Assessment and Recommendations: Title Type of Medication Management: chronic disease management, targeted medication review Referred By: provider Recipient: beneficiary Provider: plan sponsor pharmacist [place] [facility] [place] Method of Contact: by telephone Cognitive Ability: good Cognitive Impairment Status Verified this Year: no Allergies and Drug intolerance: Allergies Allergen Reactions ??? Bacitracin ??? Gabapentin Other (See Comments) [place] like a zombie ??? Gramicidin D ??? Ibuprofen ??? Lidocaine ??? Neomycin Sulfate ??? Neosporin [Hydrocortisone] ??? Polymyxin B ??? Polymyxin B Sulfate ??? Soy ??? Kkidmdn-Yns-Tgt Reductase Inhibitors Other (See Comments) Muscle soreness/weakness, fatigue ??? Sulfa (Sulfonamide Antibiotics) ??? Wheat Nausea And Vomiting Extreme fatigue and sleepiness Medication Reconciliation Discrepancies (compared to [facility] med list) -none New medications: no New [...] experiencing any side effects from your medications? non Pt understands no changes to current drug regimen were made at the appointment and that [facility] is providing recommendations (summary located at top of note) for provider review and follow up. Gilmer Martins RPH 12/21/19 4:55 PM documented in this encounter Plan of Treatment Not on file documented as of this encounter Goals Goal Patient Goal Type Associated Problems Recent Progress Patient-Stated? Author LDL CALC < 70 Result Component No Michael Mckinnon [facility] documented as of this encounter Visit Diagnoses Not on filedocumented in this encounter
--- OUTSIDE RECORDS SUMMARY | 2024-03-29 03:35 | XMS_ITS | Encounter Summary ---
[place] [address] Care Team Providers Care Jewel Stripper Name Role Phone Andrew Novak APRN Primary Care Provider +1- [phone] Encounter Details Date Type Department Care Team (Late st Contact Info) Description 04/06/2022 Refill Cardiology at [address] [phone] Anisha Jung MD [address] [place] [address] Social History Tobacco Use Types Packs/Day Years [...] 70 Result Component No Michael Mckinnon, [facility] documented as of this encounter Visit Diagnoses Diagnosis Hyperlipidemia, unspecified hyperlipidemia type documented in this encounter Care Teams Jewel Stripper Relationship Specialty Start Date End Date Andrew Novak APRN [address] [place] [address] PCP - General Family Medicine 08/15/20 09/18/23 documented as of this encounter
--- OUTSIDE RECORDS SUMMARY | 2024-03-29 03:35 | XMS_ITS | Encounter Summary ---
[place] [address] Care Team Providers Care Fire Loss Prevention Engineer Name Role Phone Unavailable Primary Care Provider Unavailabl e Reason for Visit * Reason Comments Medication Management Encounter Details Date Type Department Care Team ([facility] st Contact Info) Description 06/16/2020 Specialty [place] [address] Pilo Griffin [facility] Social History Tobacco Use Types Packs/Day [...] Progress Notes * Pilo Griffin RPH - 06/16/2020 4:22 PM EST Clinical Management Plan: Refill Specialty Pharmacy Consultation; Pilo Griffin [place]al[place] Comprehensive Medication Management (CMM) Ginger Mario Perry Ms. Ginger Amador is a 84 y.o. [...] Care Plan: no Assessment and Recommendations: Title Type of Medication Management: chronic disease management, targeted medication review Referred By: provider Recipient: beneficiary Provider: plan sponsor pharmacist Method of Contact: by telephone Cognitive Ability: good Cognitive Impairment Status Verified this Year: no Allergies and Drug intolerance: Allergies Allergen Reactions ??? Bacitracin ??? Gabapentin Other (See Comments) [place] like a zombie ??? Gramicidin D ??? Ibuprofen ??? Lidocaine ??? Neomycin Sulfate ??? Neosporin [Hydrocortisone] ??? Polymyxin B ??? Polymyxin B Sulfate ??? Soy ??? Gyfxkqu-Apq-Aaq Reductase Inhibitors Other (See Comments) Muscle soreness/weakness, fatigue ??? Sulfa (Sulfonamide Antibiotics) ??? Wheat Nausea And Vomiting Extreme fatigue and sleepiness Medication Reconciliation Discrepancies (compared to [facility] med list) - none New medications: no [...] at the appointment and that [facility] is providing recommendations (summary located at top of note) for provider review and follow up. Pilo Griffin RPH 06/16/20 4:23 PM documented in this encounter Plan of Treatment Not on file documented as of this encounter Goals Goal Patient Goal Type Associated Problems Recent Progress Patient-Stated? Author LDL CALC < 70 Result Component No Michael Mckinnon RPH documented as of this encounter Visit Diagnoses Not on filedocumented in this encounter
--- OUTSIDE RECORDS SUMMARY | 2024-03-29 03:35 | XMS_ITS | Encounter Summary ---
[place] [address] Care Team Providers Care Sketcher Name Role Phone Andrew Novak APRN Primary Care Provider +1- [phone] Reason for Visit * Reason Onset Date Comments Referral 07/14/2021 Encounter Details Date Type Department Care Team (Late st Contact Info) Description 07/14/2021 Telephone [place] [phone] Chon Snyder MD [facility] [place] [address] Referral Social History Tobacco Use Types Packs/Day Years [...] * Telephone Encounter - Diamond Borges - 07/14/2021 3:41 PM EST Referral required prior to new patient appointment on 07/24/2021 documented in this encounter Plan of Treatment Not on file documented as of this encounter Goals Goal Patient Goal Type Associated Problems Recent Progress Patient-Stated? Author LDL CALC < 70 Result Component No Michael Mckinnon, [facility] documented as of this encounter Visit Diagnoses Not on filedocumented in this encounter Care Teams Sketcher Relationship Specialty Start Date End Date Andrew Novak APRN [address] [facility] [place] [address] PCP - General Family Medicine 08/15/20 09/18/23 documented as of this encounter
--- OUTSIDE RECORDS SUMMARY | 2024-03-29 03:35 | XMS_ITS | Encounter Summary ---
[place] [address] Care Team Providers Care Skiver Welt End Name Role Phone Andrew Novak APRN Primary Care Provider +1- [phone] Encounter Details Date Type Department Care Team (Late st Contact Info) Description 08/21/2021 External [place] [phone] Chon Snyder MD [facility] [place] [address] Social History Tobacco Use Types Packs/Day Years [...] < 70 Result Component No Michael Mckinnon, [facility] documented as of this encounter Procedures Procedure Name Priority Date/Time Associated Diagnosis Comments EMG SCAN Routine 08/18/2021 documented in this encounter Results * Scan Doc: EMG (08/18/2021) Chon Snyder MD MEDIA MGR SCAN EX T ORDR/RSLT documented in this encounter Visit Diagnoses Not on filedocumented in this encounter Care Teams Skiver Welt End Relationship Specialty Start Date End Date Andrew Novak APRN [address] [place] [address] PCP - General Family Medicine 08/15/20 2 documented as of this encounter
--- OUTSIDE RECORDS SUMMARY | 2024-03-29 03:35 | XMS_ITS | Encounter Summary ---
[place] [address] Care Team Providers Care Implementation Technician Name Role Phone Andrew Novak APRN Primary Care Provider +1- [phone] Reason for Visit * Reason Comments Medication Refill Encounter Details Date Type Department Care Team ([facility] st Contact Info) Description 11/04/2021 Specialty [place] [phone] Tracy Sanchez Rosalba Social History Tobacco Use [...] Progress Notes * Tracy Sanchez RPH - 11/04/2021 2:16 PM EDT Clinical Management Plan: Refill Specialty [...] patient 5-7 days prior to next refill. Still missing doses or doing injections later than the every 21 day interval. Have recommended using a calendar to help adherence in past but she doesn't always find helpful. Last refill 06/09/21. Gap of ~6 weeks in fill from today and when she was expected to have needed it. Adherence due to forgetfulness vs difficulty with injection. We will continue to monitor at each refill. Was a change made to the Care Plan: no If yes, should the medication be held: No Assessment and Recommendations: Title Type of Medication Management: chronic disease management, targeted medication review Referred By: provider Recipient: beneficiary Provider: plan sponsor pharmacist Visit Type: [facility] Follow-up Time Spent: 1-15 min Method of Contact: by telephone Cognitive Ability: good Cognitive Impairment Status Verified this Year: no Allergies and Drug intolerance: Allergies Allergen Reactions ??? Bacitracin ??? Gabapentin Other (See Comments) [place] like a zombie ??? Gramicidin D ??? Ibuprofen ??? Lidocaine ??? Neomycin Sulfate ??? Neosporin [Hydrocortisone] ??? Polymyxin B ??? Polymyxin B Sulfate ??? Soy ??? Jsbcecz-Ukg-Drs Reductase Inhibitors Other (See Comments) Muscle soreness/weakness, fatigue ??? Sulfa (Sulfonamide Antibiotics) ??? Wheat Nausea And Vomiting Extreme fatigue and sleepiness Medication Reconciliation Discrepancies (compared to [facility] med list) -none Specialty Pharmacy Refill Questionnaire Refill Questionnaire 11/04/2021 What is the name of the specialty medication you are refilling? Praluent Are you taking any new medications? No Any new medical condition? No Any new allergies? No Any missed doses since your last fill? Yes Please explain - Any new side effects that are bothersome? No What date will you need this fill by? - Adherence: Specialty Med Adherence Patient Demonstrates Understanding of Importance of Adherence: Yes Educational Information or Adherence Tools Provided: No Patient Reported X Missed Doses in the Last Month: 1-2 If >0, reason for missed doses: memory If yes, why?: memory Provider-Estimated Medication Adherence Level: 76-89% Adherence Tools Used: calendar, cell phone Pt understands no changes to current drug regimen were made at the appointment and that [facility] is providing recommendations (summary located at top of note) for provider review and follow up. Tracy Sanchez RPH 11/04/21 2:27 PM documented in this encounter Plan of Treatment Not on file documented as of this encounter Goals Goal Patient Goal Type Associated Problems Recent Progress Patient-Stated? Author LDL CALC < 70 Result Component No Michael Mckinnon RPH documented as of this encounter Visit Diagnoses Not on filedocumented in this encounter Care Teams Implementation Technician Relationship Specialty Start Date End Date Andrew Novak, [facility] [address] [place] [address] [address] [place] [address] PCP - General Family Medicine 08/15/20 09/18/23 documented as of this encounter
--- OUTSIDE RECORDS SUMMARY | 2024-03-29 03:35 | XMS_ITS | Encounter Summary ---
Author Organization [facility] [place] [address] Care Team Providers Care Assembly Line Inspector Name Role Phone Unavailable Primary Care Provider Unavailabl e Encounter Details Date Type Department Care Team (Late st Contact Info) Description 04/01/2020 Notes Only Cardiology at [address] [phone] Nellie Mclaughlin MD [facility] [place] [address] Social History Tobacco Use Types Packs/Day Years [...] Progress Notes * Nellie Mclaughlin MD - 04/01/2020 8:51 AM EDT Spoke to Dr. Foley today regarding Ginger's BP. Dr. Foley has told me that he did not prescribe the combination of spironolactone and chlorthalidone. He did prescribe amlodipine and losartan. He notes that ginger has frequent side effects to medications and it results in trying many different medications (often prescribed by different physicians). I offered to have Ginger see my colleague MD Neyda who is a hypertension specialist. Dr. Foley welcomed this suggestion. I called Ginger who tells me she is currently taking spironolactone 25 mg daily and losartan 100 mg daily. Her legs are less swollen off amlodipine and she states she feels better. She would like to have a visit with Anisha Jung MD. I told her I would arrange. documented in this encounter Plan of Treatment Not on file documented as of this encounter Goals Goal Patient Goal Type Associated Problems Recent Progress Patient-Stated? Author LDL CALC < 70 Result Component No Michael Mckinnon [facility] documented as of this encounter Visit Diagnoses Not on filedocumented in this encounter
--- OUTSIDE RECORDS SUMMARY | 2024-03-29 03:36 | XMS_ITS | Encounter Summary ---
Author Organization [place] [address] Care Team Providers Care Video Photographer Name Role Phone Unavailable Primary Care Provider Unavailabl e Encounter Details Date Type Department Care Team (Late st Contact Info) Description 09/10/2015 - 09/10/2015 11:59 PM EST Hospital Encounter [place] [phone] Temporary Pain Discharge Disposition: Home Social History Tobacco Use Types Packs/Day Years Used Date Smoking Tobacco: Never Alcohol Use Standard Drinks/Week Comments Yes 1 (1 standard drink = 0.6 oz pur e alcohol) Sex and Gender Information Value Date Recorded Sex Assigned at Not on file Gender Identity Not on file Sexual Orientation Not on file documented as of this encounter Medications at Time of Discharge Medication Sig Dispensed Refills Start Date End Date meTOPROLOL succinate (TOPROL-XL) 50 mg Tablet Sustained Release 24 hr Take 50 mg by mouth daily. 07/13/2016 CALCIUM CARBONATE (CALCIUM 500 ORAL) Take 1 tablet by mouth daily. 04/21/2017 amLODIPine (NORVASC) 2.5 mg Tablet Take 2.5 mg by mouth daily. Reported on 10/20/2016 04/21/2017 nitrofurantoin, macrocrystal-monohydrat e, (MACROBID) 100 mg Capsule Take 100 mg by mouth 2 times daily. 07/13/2016 albuterol (PROVENTIL HFA;VENTOLIN HFA;PROAIR) 90 mcg/actuation HFA Aerosol Inhaler Inhale 2 puffs into the lungs every 4 hours as needed for Wheezing. Use with spacer 07/13/2016 aspirin 81 mg Tablet, Delayed Release (E.C.) Take 1 tablet by mouth daily. 30 tablet 3 07/02/2015 06/09/2022 atorvastatin (LIPITOR) 80 mg Tablet Take 1 tablet by mouth every evening. 30 tablet 6 07/02/2015 07/13/2016 documented as of this encounter Plan of Treatment Not on file documented as of this encounter Procedures Procedure Name Priority Date/Time Associated Diagnosis Comments FILM LIBRARY STORAGE ONLY DX CHEST Routine 09/10/2015 12:00 AM EST Pain documented in this encounter Results * Film Library- Storage only DX Chest (09/10/2015 12:00 AM EST) Narrative MAY CUELLAR - 09/10/2015 4:44 PM EST See PACS for result report. Dr Madrigal [facility] FILM LIBRARY ORD ERABLES ALISA [place], [place] documented in this encounter Visit Diagnoses Diagnosis Pain Generalized pain documented in this encounter
--- OUTSIDE RECORDS SUMMARY | 2024-03-29 03:36 | XMS_ITS | Encounter Summary ---
Author Organization [facility] [place] [address] Care Team Providers Care Subcontract Manager Name Role Phone Unavailable Primary Care Provider Unavailabl e Encounter Details Date Type Department Care Team (Latest Contact Info) Description 06/22/2017 10:05 AM EST - 06/22/2017 11:59 PM EST Hospital En[place] [phone] Generalized weakness Discharge Disposition: Home Social History Tobacco Use [...] Sig Dispensed Refills Start Date End Date Cod Liver Oil Oil Take 1 Dose by mouth. GLUCOSAMINE/METHYLSULFON YLMETH (GLUCOSAMINE MSM ORAL) Take 500 mg by mouth as needed. CALCIUM ORAL Take 1 tablet by mouth daily. FEVERFEW ORAL Take 1 tablet by mouth daily. fluticasone-salmeterol (ADVAIR) 250-50 mcg/dose Disk with Device Inhale 1 puff into the lungs 2 times daily. hydroCHLOROthiazide (HYDRODIURIL) 12.5 mg Tablet Take 1 tablet by mouth daily. 04/19/2017 12/22/2018 losartan (COZAAR) 50 mg Tablet Take 1 tablet by mouth daily. 03/29/2017 09/22/2018 amLODIPine (NORVASC) 5 mg Tablet Take 5 mg by mouth daily. 08/12/2016 05/07/2020 aspirin 81 mg Tablet, Delayed Release (E.C.) Take 1 tablet by mouth daily. 30 tablet 3 07/02/2015 06/09/2022 documented as of this encounter Procedure Notes * Toya Palma MD - 06/22/2017 9:53 PM ESTAssociated Order(s): PULMONARY FUNCTION TEST Pulmonary Function Test Interpretation FEV1 is reduced. The FEV1/FVC ratio is reduced. Uncorrected single-breath diffusion capacity for CO was normal. Resting oxyhemoglobin saturation was normal. Resting oximetry was assessed while the patient was breathing room air. 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 Lung Volume Measurements Total lung capacity normal Functional residual capacity normal [place] volume normal Normal total lung capacity and subdivisions of lung volume refute a restrictive ventilatory defect. TOYA PALMA MD documented in this encounter Plan of Treatment Not on file documented as of this encounter Procedures Procedure Name Priority Date/Time Associated Diagnosis Comments COMMON PULMONARY FUNCTION TEST Routine 06/22/2017 9:55 PM EST Generalized weakness documented in this encounter Results * Pulmonary Function Testing (06/22/2017 9:55 PM EST) Narrative Toya Palma MD - 06/22/2017 9:55 PM EST Toya Palma MD ? 06/22/2017 ??9:55 PM Pulmonary Function Test Interpretation FEV1 is reduced. ??The FEV1/FVC ratio is reduced. Uncorrected single-breath diffusion capacity for CO was normal. Resting oxyhemoglobin saturation was normal. Resting oximetry was assessed while the patient was breathing room air. 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 Lung Volume Measurements Total lung capacity ?? normal Functional residual capacity ??normal [place] volume ??normal Normal total lung capacity and subdivisions of lung volume refute a restrictive ventilatory defect. TOYA PALMA MD Chon Snyder MD PFT ORDERABLES documented in this encounter Visit Diagnoses Diagnosis Generalized weakness Other malaise and fatigue documented in this encounter
--- OUTSIDE RECORDS SUMMARY | 2024-03-29 03:36 | XMS_ITS | Encounter Summary ---
Author Organization [facility] [place] [address] Care Team Providers Care Directory Carrier Name Role Phone Unavailable Primary Care Provider Unavailabl e Encounter Details Date Type Department Care Team (Late st Contact Info) Description 08/26/2015 2:40 PM EST Office [place] [address] Tavon Chan MD [facility] [place] [address] S/P CABG (coronary artery bypass graft) Social History Tobacco Use Types Packs/Day Years [...] Sign Reading Time Taken Comments Blood Pressure 169/74 08/26/2015 2:41 PM EST Pulse 82 08/26/2015 2:41 PM EST Temperature - - Respiratory Rate - - Oxygen Saturation 98% 08/26/2015 2:41 PM EST Inhaled Oxygen Concentration - - Weight 72.1 kg (159 lb) 08/26/2015 2:41 PM EST Height 154.9 cm (5' 1) 08/26/2015 2:41 PM EST Body Mass Index 30.04 08/26/2015 2:41 PM EST documented in this encounter Progress Notes * Tavon Chan MD - 08/27/2015 12:33 PM EST COPY: Jacob Foley, DO Followup Note Ms. Amador is status post her CABG. She has been still having exertional dyspnea. No fever, chills. Her pain is under control. Her vital signs are stable. Her wounds are clean, dry, and intact. She unfortunately has no chest x-ray today. Her EKG shows no acute changes. Impression: Ms. Amador is doing well from her surgery, but she still has more shortness of breath than I would like to see. Plan: For her to get a chest x-ray in two with Dr. Jacob Foley and I am going to speak with Dr. Foley. I left a message for him, that way she does not have to travel down here for her x-ray so I can see the images and we will make a decision on whether she has any effusions that need to be drained. In the meantime she should participate in cardiac rehab. documented in this encounter Plan of Treatment Not on file documented as of this encounter Procedures Procedure Name Priority Date/Time Associated Diagnosis Comments EKG 12-LEAD Routine 08/26/2015 3:01 PM EST S/P CABG (coronary artery bypass graft) documented in this encounter Results * EKG 12 Lead (08/26/2015 3:01 PM EST) Ventricular rate 76 BPM MUSE SYSTEM Atrial Rate 76 BPM MUSE SYSTEM P-R Interval 186 ms MUSE SYSTEM QRS Duration 96 ms MUSE SYSTEM Q-T Interval 408 ms MUSE SYSTEM QTC Calculated (Bezet) 459 ms MUSE SYSTEM Calculated P [place] 79 degrees MUSE SYSTEM Calculated R [place] 28 degrees MUSE SYSTEM Calculated T [place] 113 degrees MUSE SYSTEM INTERPRETATION Normal sinus rhythm Nonspecific T wave abnormality Abnormal ECG When compared with ECG of 24-JUL-2015 16:25, No significant change was found Confirmed by MD Neel, Morgan ([id number]) on 08/27/2015 11:42:46 AM MUSE SYSTEM 08/26/2015 3:01 PM EST 08/27/2015 11:42 AM EST Tavon Chan MD ECG ORDERABLES [facility] documented in this encounter Visit Diagnoses Diagnosis S/P CABG (coronary artery bypass graft) Postsurgical aortocoronary bypass status documented in this encounter
--- OUTSIDE RECORDS SUMMARY | 2024-03-29 03:36 | XMS_ITS | Encounter Summary ---
Author Organization [facility] Address [facility] [place] [address] Care Team Providers Care School Age Program Associate Name Role Phone Unavailable Primary Care Provider Unavailabl e Reason for Visit * Consultation (Routine) - Closed Specialty Diagnoses / Procedures Referred By Contfrederic t Referred To Contact Cardiology Diagnoses statin intolerance Jacob Foley, DO [address] [place] [address] Jose Luis Simeon MD [facility] [place] [address] Referral ID Status Reason Start Date Expiration Date V isits Requested Visits Authorized [id number] Closed Consult, Test & Treat Connection Center 09/01/2018 09/01/2019 1 1 Encounter Details Date Type Department Care Team (Latest Contact Info) Description 09/22/2018 2:00 PM EST Office Visit Cardiology at [address] [address] Marcello Stephens MD [facility] [place] [address] Hyperlipidemia, unspecified hyperlipidemia type; Coronary artery disease involving [place] coronary artery, angina presence unspecified, unspecified whether [place] or transplanted heart; Hyperglycemia Social History Tobacco Use Types Packs/Day [...] Sign Reading Time Taken Comments Blood Pressure 152/57 09/22/2018 1:58 PM EST Pulse 56 09/22/2018 1:58 PM EST Temperature - - Respiratory Rate - - Oxygen Saturation 99% 09/22/2018 1:58 PM EST Inhaled Oxygen Concentration - - Weight 77.6 kg (171 lb) 09/22/2018 1:58 PM EST Height 156.2 cm (5' 1.5) 09/22/2018 1:58 PM EST Body Mass Index 31.79 09/22/2018 1:58 PM EST documented in this encounter Progress Notes * Marcello Stephens MD - 09/22/2018 2:00 PM EST [facility]--Initial Consultation ID/PMH Ginger is a 82 y.o. followed by Jacob Foley DO with the following problems: Patient Active Problem List Diagnosis Code ??? Verruca vulgaris B07.9 ??? Seborrheic keratosis L82.1 ??? Actinic keratosis L57.0 ??? Abnormal stress test R94.39 ??? CAD (coronary artery disease) I25.10 ??? Hypertension I10 ??? 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 She has 3 children all daughters and 4 grandchildren 2 girls and 2 boys. 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 She enjoys the bed and breakfast, [place], reading. 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 Jacob Foley for evaluation and management of dyslipidemia, specifically elevated LDL cholesterol in the setting of coronary artery disease and a history of muscle weakness, myalgia, and elevated CK while on rosuvastatin (Crestor). She [facility] for her muscle weakness, myalgia and elevation in CK. With discontinuation of rosuvastatin her symptoms improved substantially. She was tried on other statins but did not tolerate these. She presents today to discuss the possibility of alternative therapies. In Ginger's words I would rather 10 years earlier and go on another statin. Evaluation for secondary causes Labs studies have included normal liver, and thyroid studies. Her blood sugar is in the prediabetesrange. She takes no drugs associated with secondary dyslipidemia (she is prescribed hydrochlorothiazide but is not taking it because it makes her urinate too much and she feels dehydrated). Dietary habits Breakfast: 6 am 1/2 serbian muffin - gluten free almond butter green tea Snack 10 am egg and left over veggies tea agava 3PM: soup or sandwich turkey and cheese with gluten free sandwich thin occ roast beef or left overs Dinner: skip Snacks:occ nuts, serbian muffin, sweets- gluten free cookie or brownie or rice crispy bar, orange Frequency of dining out: 1-2 times a month - breakfast - eggs longoria and fruit or lunch Alcohol intake: white wine 2 times a month Exercise habits No regular - too SOB. Can do one flight of stairs Review of Systems: Constitutional: negative for fever, weight loss - lost 20 when she had her CABG and has kept it off HEENT: Negative for visual problems, sore throat, and sinus issues Cardiac: negative for chest pain, positive SOB on exertion. Rare SOB at rest, no orthopnea, PND, edema, no palpitations Respiratory: Positive SOB, cough, wheezing, hemoptysis Gastrointestinal: No abdominal pain, nausea, vomiting, diarrhea, Genitourinary: No nocturia, or dysuria Musculoskeletal: tremendous weakness on statins Skin: No suspicious lesions, Rashes, no itching Neurological: No headaches, no sensory or motor deficits, no dizziness Endocrine: Denies polyuria, polydipsia, heat or cold intolerance Hematologic: No abnormal bleeding, bruising, lymphadenopathy Medications Current Outpatient Medications Medication Sig Dispense Refill ??? losartan (COZAAR) 100 mg Tablet Take [...] by mouth daily. 30 tablet 3 ??? hydroCHLOROthiazide (HYDRODIURIL) 12.5 mg Tablet Take 1 tablet by mouth daily. No current facility-administered medications for this visit. Allergies Bacitracin; Gabapentin; Gramicidin d; Ibuprofen; Lidocaine; Neomycin sulfate; Neosporin [hydrocortisone]; Polymyxin b; Polymyxin b sulfate; Grcadkr-rhc-snu reductase inhibitors; Sulfa (sulfonamide antibiotics); and Wheat Physical Exam General: 82-year-old woman with a BMI of 31.79 VS: BP 152/57 Pulse 56 Ht 156.2 cm (5' 1.5) Wt 77.6 kg (171 lb) SpO2 99% BMI 31.79 kg/m?? Skin: Warm and dry. No eruptive xanthomas. Sternotomy scar HEENT: Anicteric sclera. No xanthelasma. Lungs: Clear no evidence of wheezing Heart: S1-S2 no murmurs gallops or rubs, regular rate and rhythm Abd: Soft and nontender. Ext: she has no tendon xanthomas. Her Achilles is not thickened. Neuro: No focal motor deficits. Psych: Appropriate affect. Assessment Ginger is an 82-year-old postmenopausal woman with a personal history of coronary artery disease. Sheis status post coronary artery bypass grafting several years ago. She unfortunately developed myalgia, weakness, and elevations in CK while being treated with Crestor. She was subsequently tried on other statins but experienced the same issues. She presents today to discuss statin alternatives. Today in addition to discussing lifestyle changes aimed at improving her lipid profile I discussed bothezetimibe and the PCSK 9 inhibitors. Based on the fact that her current LDL is 95 mg/dL, I think itis worthwhile to give her a trial of ezetimibe prior to considering PCSK 9 inhibitors. This is the recommendation in our current cholesterol guidelines published by the AHA/ACC in 2018. If her LDL does not normalize with ezetimibe and with some lifestyle changes that I have recommended we will consider a PC SK 9 inhibitor. Today I gave her some very specific recommendations aimed at decreasing saturated fat in her diet and decreasing overall calories. 5-8 pounds of weight loss over the next 3 months would benefit her in terms of her cholesterol, blood pressure, and blood sugar. She appears somewhat motivated to make some changes in her diet. With regard to exercise, I have asked her to hold off on initiating an exercise program until she undergoes a nuclear stress test. I am concerned that she is describing shortness of breath which she says is very similar to the shortness of breath she experienced as her anginal equivalent prior to her coronary artery bypass procedure. It is certainly possible that her shortness of breath is related solely to her deconditioning or possibly related to her asthma. But given that shortness of breathwas her only symptom prior to her bypass, I think the better part of woody is to perform a nuclear stress test. I do not think she would be able to perform a standard stress test based on how short of breath she is with limited exercise. I have offered to schedule that nuclear stress test here at [facility] but Ginger prefers to have this closer to home. I have asked her to call Dr. Foley to schedule this as soon as possible. When she is cleared I have asked her to gradually initiate a daily walking program aiming to get to 30 minutes of walking per day. Action ?? Explained my impression and answered all questions ?? Ginger will begin ezetimibe 10 mg daily ?? Ginger will call Dr. Foley to schedule a nuclear stress test Follow up 3 months MARCELLO STEPHENS MD 09/22/2018 This visit was 60 minutes in length of which 40 minutes were spent in counseling CC: Jacob Foley DO documented in this encounter Plan of Treatment Not on file documented as of this encounter Visit Diagnoses Diagnosis Hyperlipidemia, unspecified hyperlipidemia type Coronary artery disease involving [place] coronary artery, angina presence unspecified, unspecified whether [place] or transplanted heart Hyperglycemia Other abnormal glucose documented in this encounter
--- OUTSIDE RECORDS SUMMARY | 2024-03-29 03:36 | XMS_ITS | Encounter Summary ---
[place] [address] Care Team Providers Care Oven Technician Name Role Phone Unavailable Primary Care Provider Unavailabl e Encounter Details Date Type Department Care Team (Late st Contact Info) Description 06/22/2017 2:00 PM EST [place] [address] Chon Snyder MD [facility] [place] [address] HyperCKemia; Polyradiculopathy; Radiculopathy of lumbar region; Generalized weakness; Right foot drop Social History Tobacco Use Types Packs/Day Years [...] Sign Reading Time Taken Comments Blood Pressure 142/58 06/22/2017 2:02 PM EST Pulse 75 06/22/2017 2:02 PM EST Temperature - - Respiratory Rate - - Oxygen Saturation - - Inhaled Oxygen Concentration - - Weight 78.9 kg (174 lb) 06/22/2017 2:02 PM EST Height 153.7 cm (5' 0.5) 06/22/2017 2:02 PM EST reported Body Mass Index 33.42 06/22/2017 2:02 PM EST documented in this encounter Progress Notes * Chon Snyder MD - 06/22/2017 2:00 PM EST Ginger Amador is a 81-year-old woman with [id number], lumbar stenosis with right L5 radiculopathy, and generalized myalgias and weakness, that may have been due to statin use. Last visit in April 2017, we stopped her Crestor. She does have a history of coronary artery disease, but chose to stop it, even with the risk. Apparently, she tried another statin (though she cannot remember which one) after stopping the Crestor. It may have been pravastatin, but this is not certain, and I did not receive confirmation in the records. She feels remarkably better. Her gait has improved drastically, and her mobility and dexterity have also improved. She had pulmonary function tests this morning. She reported some shortness of breath, and it was not clear if this was asthma/pulmonary-related or due to neuromuscular weakness. I reviewed the results myself, but I find them a little bit hard to interpret. The maximum inspiratory force was normal, though the maximum expiratory force was slightly low. The FVC was normal. Together, this to me implies there is no neuromuscular weakness, but the official interpretation is pending at this time. We discussed again the question of statin myopathy versus an underlying neuromuscular disorder, such as a myopathy or muscular dystrophy. We discussed the risks and benefits of staying off statins, including the increased risk of strokes and heart attacks. She said she would rather 10 years earlier than continue on the statin. I think at this point I will leave it up to her and her primary care doctor. Fluvastatin and pravastatin have a slightly lower risk of statin myopathy, so these might be reasonable, at least at a low dose. She was supposed to get a repeat CPK this morning, but did not get it. She also needs to have her cholesterol drawn, and does not want to have 2 blood draws, but unfortunately she already ate today. Accordingly, I suggested that she get her blood drawn in [place] near home as soon as possible, and send me the CPK results. If this is normalized, I think that really strengthens the idea that muscle problem was statin-related. If it remains elevated, she will need to check it again in 4 months. Sometimes the effects of statin myopathy can linger for 6 months. If it remains elevated in 4 months, then we will need to do additional testing to figure out her underlying muscle problem, which at that point likely is not related to the statin. She understood everything and agreed with the plan. We will not schedule a followup. We will decide when I get the results. If the CPK is still elevated, we will then make a followup appointment at that point. In addition, unfortunately her daughter has been diagnosed with colon cancer, and so she will be down with her daughter for the next several months. Any followup would have to be after the new year regardless. I spent 25 minutes in cier-tg-nnee consultation with this patient, of which greater than half of the visit was spent in supportive counseling and therapeutic planning. Chon Snyder MD 06/22/2017 documented in this encounter Plan of Treatment Not on file documented as of this encounter Visit Diagnoses Diagnosis HyperCKemia Other nonspecific abnormal serum enzyme levels Polyradiculopathy Neuralgia, neuritis, and radiculitis, unspecified Radiculopathy of lumbar region Thoracic or lumbosacral neuritis or radiculitis, unspecified Generalized weakness Other malaise and fatigue Right foot drop Other acquired deformity of ankle and foot documented in this encounter
--- OUTSIDE RECORDS SUMMARY | 2024-03-29 03:36 | XMS_ITS | Encounter Summary ---
[place] [address] Care Team Providers Care Wood Fence Erector Name Role Phone Unavailable Primary Care Provider Unavailabl e Reason for Referral * Diagnostic Test (Routine) - Closed Specialty Diagnoses / Procedures Referred By Contac t Referred To Contact Radiology Diagnoses Polyradiculopathy Procedures MRI Lumbar Spine wo Contrast (Generic) Chon Snyder MD [facility] [place] [address] [place] [address] Referral ID Status Reason Start Date Expiration Date V isits Requested Visits Authorized [id number] Closed Specialty Service Requested 07/30/2016 07/30/2017 1 1 Reason for Visit * Diagnostic Test (Routine) - Closed Specialty Diagnoses / Procedures Referred By Contac t Referred To Contact Radiology Diagnoses Polyradiculopathy Procedures MRI Lumbar Spine wo Contrast (Generic) Chon Snyder MD [facility] [place] [address] [place] [address] Referral ID Status Reason Start Date Expiration Date V isits Requested Visits Authorized [id number] Closed Specialty Service Requested 07/30/2016 07/30/2017 1 1 Encounter Details Date Type Department Care Team (Latest Contact Info) Description 08/24/2016 2:29 PM EST - 08/24/2016 11:59 PM EST [place] [address] Chon Snyder MD [facility] [place] [address] Polyradiculopathy Discharge Disposition: Home Social History Tobacco Use [...] Sig Dispensed Refills Start Date End Date amLODIPine (NORVASC) 5 mg Tablet Take 5 mg by mouth daily. 08/12/2016 05/07/2020 losartan (COZAAR) 25 mg Tablet Take 25 mg by mouth daily. 04/21/2017 rosuvastatin (CRESTOR) 10 mg Tablet Take 10 mg by mouth daily. 06/22/2017 CALCIUM CARBONATE (CALCIUM 500 ORAL) Take 1 tablet by mouth daily. 04/21/2017 amLODIPine (NORVASC) 2.5 mg Tablet Take 2.5 mg by mouth daily. Reported on 10/20/2016 04/21/2017 aspirin 81 mg Tablet, Delayed Release (E.C.) Take 1 tablet by mouth daily. 30 tablet 3 07/02/2015 06/09/2022 documented as of this encounter Plan of Treatment Not on file documented as of this encounter Procedures Procedure Name Priority Date/Time Associated Diagnosis Comments MRI LUMBAR SPINE WITHOUT CONTRAST Routine 08/24/2016 3:32 PM EST Polyradiculopathy documented in this encounter Results * MRI Lumbar Spine wo Contrast (Generic) (08/24/2016 3:32 PM EST) Anatomical Region Laterality Modality L-spine Magnetic Resonan ce Impressions 08/24/2016 3:47 PM EST Multilevel degenerative changes in the setting of a lumbar dextroscoliosis with varying degrees of canal and neural foraminal narrowing as described above. Changes are worse on the right side at L4-L5 and L5-S1 with a small right-sided synovial cyst at L4-L5 which contributes to the subarticular recess narrowing at this level. Comment: The following findings are so common in people without low back pain that while we report their presence, they must be interpreted with caution and in context of the clinical situation (Reference- Gretelk et al, Spine 2001). Findings: (Prevalence in patients without low back pain), disc degeneration (decreased T2 signal, height loss, bulge) (91%), disc T2-signal loss (83%), disc height loss (56%), disc bulge (64%), disc protrusion (32%), annular fissure (38%). Narrative 08/24/2016 3:47 PM EST EXAMINATION: MRI LUMBAR SPINE WO CONTRAST (GENERIC) CLINICAL HISTORY: 80 yo w lumbar polyradiculopathy - r/out stenosis and multilevel foraminal narrowing. TECHNIQUE: MRI of the lumbar spine was performed without contrast, routine radiculopathy protocol. ? COMPARISON: None FINDINGS: Is a moderate upper lumbar dextro scoliosis with partial fusion across the L2-L3 disc space. Significant disc space narrowing present at all levels. The normal appearing conus terminates at L1-L2. No aggressive marrow lesions. The visualized retroperitoneal structures appear normal. Severe atrophy of the lower posterior paraspinal muscles is noted. Findings at individual levels: T12-L1: ??Mild bilateral neural foraminal narrowing because of facet arthropathy. L1-L2: ??There is a disc bulge and facet arthropathy with severe left and mild to moderate right-sided neural foraminal narrowing. Mild central canal narrowing. L2-L3: ??Disc bulge and facet arthropathy with moderate left and mild right- sided neural foraminal narrowing. Mild central canal narrowing. L3-L4: ??Disc bulge and facet arthropathy with moderate left and mild right- sided neural foraminal narrowing. Mild central canal narrowing. L4-L5: ??Disc bulge and severe facet arthropathy with a right-sided synovial cyst severely narrow the right subarticular recess and right-sided neural foramen. There is mild central canal narrowing and moderate left-sided neural foraminal narrowing. L5-S1: ??Disc bulge with severe right-sided facet arthropathy severely narrows the right-sided neural foramen. There is mild canal and left-sided neural foraminal narrowing. Procedure Note Bull Arrington MD - 08/24/2016 EXAMINATION: MRI LUMBAR SPINE WO CONTRAST (GENERIC) CLINICAL HISTORY: 80 yo w lumbar polyradiculopathy - r/out stenosis and multilevel foraminal narrowing. TECHNIQUE: MRI of the lumbar spine was performed without contrast,routine radiculopathy protocol. COMPARISON: None FINDINGS: Is a moderate upper lumbar dextro scoliosis with partial fusionacross the L2-L3 disc space. Significant disc space narrowing present at alllevels. The normal appearing conus terminates at L1-L2. No aggressive marrowlesions. The visualized retroperitoneal structures appear normal. Severe atrophy ofthe lower posterior paraspinal muscles is noted. Findings at individual levels: T12-L1: Mild bilateral neural foraminal narrowing because of facetarthropathy. L1-L2: There is a disc bulge and facet arthropathy with severe left andmild to moderate right-sided neural foraminal narrowing. Mild central canalnarrowing. L2-L3: Disc bulge and facet arthropathy with moderate left and mildright-sided neural foraminal narrowing. Mild central canal narrowing. L3-L4: Disc bulge and facet arthropathy with moderate left and mildright-sided neural foraminal narrowing. Mild central canal narrowing. L4-L5: Disc bulge and severe facet arthropathy with a right-sidedsynovial cyst severely narrow the right subarticular recess and right-sided neuralforamen. There is mild central canal narrowing and moderate left-sided neuralforaminal narrowing. L5-S1: Disc bulge with severe right-sided facet arthropathy severelynarrows the right-sided neural foramen. There is mild canal and left-sidedneural foraminal narrowing. IMPRESSION Multilevel degenerative changes in the setting of a lumbar dextroscoliosiswith varying degrees of canal and neural foraminal narrowing as describedabove. Changes are worse on the right side at L4-L5 and L5-S1 with a smallright-sided synovial cyst at L4-L5 which contributes to the subarticular recessnarrowing at this level. Comment: The following findings are so common in people without low backpain that while we report their presence, they must be interpreted with cautionand in context of the clinical situation (Reference- Aziza et al, [id number]). Findings: (Prevalence in patients without low back pain), discdegeneration (decreased T2 signal, height loss, bulge) (91%), disc T2-signal loss(83%), disc height loss (56%), disc bulge (64%), disc protrusion (32%), annularfissure (38%). Chon Snyder MD [facility] MRI ORDERABLE S documented in this encounter Visit Diagnoses Diagnosis Polyradiculopathy Neuralgia, neuritis, and radiculitis, unspecified documented in this encounter
--- OUTSIDE RECORDS SUMMARY | 2024-03-29 03:36 | XMS_ITS | Encounter Summary ---
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 Name Role Phone Unavailable Primary Care Provider Unavailabl e Reason for Visit * Reason Comments Coronary Artery Disease Hypertension Ekg Encounter Details Date Type Department Care Team (Late st Contact Info) Description 01/30/2019 3:20 PM EDT Office Visit Cardiology at [address] [phone] Dean Tilley MD [facility] [place] [address] Coronary artery disease, angina presence unspecified, unspecified vessel or lesion type, unspecified whether akhiok or transplanted heart (Primary Dx); Essential hypertension; Status post coronary artery bypass grafting; LUNA (dyspnea on exertion); Muscle cramps Social History Tobacco Use Types [...] Sign Reading Time Taken Comments Blood Pressure 168/58 01/30/2019 3:26 PM EDT Pulse 57 01/30/2019 3:26 PM EDT Temperature - - Respiratory Rate - - Oxygen Saturation 97% 01/30/2019 3:26 PM EDT Inhaled Oxygen Concentration - - Weight 75.7 kg (166 lb 14.4 oz) 01/30/2019 3:26 PM EDT Height 154.9 cm (5' 1) 01/30/2019 3:26 PM EDT Body Mass Index 31.54 01/30/2019 3:26 PM EDT documented in this encounter Progress Notes * Dean Tilley MD - 01/30/2019 3:20 PM EDT Images from the original note were not included. [facility] [place] [address] Subjective: Patient ID: Ginger Amador is a 83 y.o. female. Patient referred by Dr Mclaughlin for diastolic dysfunction with elevated filling pressure as per echo 12/19/2018 in [facility]. Patient Active Problem List Diagnosis ??? 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 ??? CAD (coronary artery disease) ??? Hypertension ??? LUNA (dyspnea on exertion) ??? Muscle cramps ??? Asthma ??? Actinic keratosis ??? Verruca vulgaris ??? Seborrheic keratosis Patient here to establish cardiology care, s/p CABG in 2014. I met her for the first time as inpatient attending 06/2015. After her CABG 2015 her LUNA improved (or she was exerting herself yet), but over the last year or so she has noticed more LUNA again, half of the time accompanied by wheezing, mostly helped by inhalers but not always. 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 She has noticed some R>L LE edema, which has been chronic for years. At night she sometimes wakes up because of cramps in the medial thigh muscles or pain in the R>Lback of knees. She takes some over the counter cramp medicine for this when she has a cramp which seems to help. She denies every having had angina. Occasionally she has reproducible R parasternal pain. She is trying to lose weight. Her BP at home usually is 123-180 systolic, mostly around 145 systolic/low 70s. At night she sometimes has noticed a SBP of 179 mmHg. She sometimes has Luis Chi class. 10/11/2018 she underwent a nuclear stress test at [facility] to 6.5 METS, which showed predominantly fixeddefect in the basal to mid lateral wall, LVEF 59%. 12/19/2018 she had echocardiogram which showed asymetrical septal thickening, nl LVEF, evidence for diastolic dysfunction with increased filling pressure, aortic valve sclerosis, Review of Systems Family History Problem Relation Age of Onset ??? Colorectal Cancer Daughter ??? Breast Cancer Mother 52 ??? Pancreatic Cancer Father 78 ??? 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 She has 3 children all daughters and 4 grandchildren 2 girls and 2 boys. 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 She enjoys the bed and breakfast, [place],reading. 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 Smoking status: Never Smoker ??? Smokeless tobacco: Never Used Substance Use Topics ??? Alcohol use: Yes Comment: Social Outpatient Medications Marked as Taking for the 01/30/19 encounter (Office Visit) with Dean Tilley MD Medication Sig Dispense Refill ??? spironolactone (ALDACTONE) 25 mg Tablet Take 12.5 mg by mouth daily. 0 ??? alirocumab 75 mg/mL Pen Injector Inject 75 mg subcutaneously every 14 days. 6 mL 3 ??? losartan (COZAAR) 100 mg Tablet Take 100 mg by mouth daily. ??? ezetimibe (ZETIA) 10 mg Tablet Take 1 tablet by mouth daily. 90 tablet 3 ??? Cod Liver Oil Oil Take 1 [...] tablet by mouth daily. 30 tablet 3 Objective: BP 168/58 Pulse 57 Ht 154.9 cm (5' 1) Wt 75.7 kg (166 lb 14.4 oz) SpO2 97% BMI 31.54 kg/m?? Physical Exam Constitutional: She appears well-developed and well-nourished. HENT: Head: Normocephalic. Eyes: No scleral icterus. Neck: No JVD present. Cardiovascular: Normal rate and regular rhythm. Exam reveals no gallop and no friction rub. Murmur heard. Harsh midsystolic murmur is present with a grade of 2/6 at the upper right sternal border. Abdominal: Soft. Bowel sounds are normal. Musculoskeletal: She exhibits no edema. Skin: Skin is warm and dry. Psychiatric: She has a normal mood and affect. Her behavior is normal. Recent Results (from the past 72 hour(s)) EKG 12 Lead Result Value Ref Range Ventricular rate 49 BPM Atrial Rate 49 BPM P-R Interval 182 ms QRS Duration 102 ms Q-T Interval 452 ms QTC Calculated (Bezet) 408 ms Calculated P Buda 58 degrees Calculated R Buda -59 degrees Calculated T Buda 118 degrees INTERPRETATION Sinus bradycardia Left axis deviation Possible Anterior infarct , age undetermined ST & T wave abnormality, consider lateral ischemia Abnormal ECG When compared with ECG of 26-AUG-2015 15:01, Vent. rate has decreased BY 27 BPM QT has shortened Calcium, Ionized, Serum Result Value Ref Range ICA serum 1.20 1.15 - 1.33 mmol/L Calcium Result Value Ref Range Calcium 10.1 8.5 - 10.5 mg/dL Magnesium Result Value Ref Range Magnesium 0.91 0.69 - 1.07 mmol/L pro-Brain Natriuretic Peptide Result Value Ref Range ProBNP 242 <=450 pg/mL Basic Metabolic Panel (non-fasting) Result Value Ref Range Glucose Lvl 104 65 - 199 mg/dL BUN 16 8 - 18 mg/dL Creatinine 0.86 0.70 - 1.20 mg/dL Sodium 143 135 - 145 mmol/L Potassium 4.0 3.5 - 5.0 mmol/L Chloride 105 98 - 107 mmol/L CO2 25 22 - 31 mmol/L Anion Gap 13 5 - 15 mmol/L Calcium 10.1 8.5 - 10.5 mg/dL eGFR 63 >=60 mL/min/1.73 m?? eGFR 73 >=60 mL/min/1.73 m?? Assessment and Plan: LUNA (dyspnea on exertion) Could bye due to asthma - since inhalers usually help and wheezing often is present, diastolic dysfunction (which she likely has and apparently was felt to be supported by recent outside echo - however her normal proBNP is reassuring), ischemia - however her nuclear stress by report did not reveal significant reversible ischemia. Status post coronary artery bypass grafting Overall seem to be doing well, no ischemia on recent nuclear stress test which was done for dyspnea. Continue risk factor management. Hypertension Does not appear sufficiently controlled. Will add chlorthalidone 12.5 mg/day to her current regimen. Have advised follow up BMP in 7-10 days by her PCP (particularly to re-assess serum K, BUN/Crea). Muscle cramps Normal serum K, Ca and Mg today. Etiology not obvious to me at this point. 25 minutes of this 45 minute visit were spent discussing with the patient the issues above. documented in this encounter Miscellaneous Notes * Assessment & Plan Note - Dean Tilley MD - 01/30/2019 6:40 PM EDTAssociated Problem(s): Muscle cramps Normal serum K, Ca and Mg today. Etiology not obvious to me at this point. * Assessment & Plan Note - Dean Tilley MD - 01/30/2019 6:29 PM EDTAssociated Problem(s): Hypertension Does not appear sufficiently controlled. Will add chlorthalidone 12.5 mg/day to her current regimen. Have advised follow up BMP in 7-10 days by her PCP (particularly to re-assess serum K, BUN/Crea). * Assessment & Plan Note - Dean Tilley MD - 01/30/2019 6:21 PM EDTAssociated Problem(s): Status post coronary artery bypass grafting Overall seem to be doing well, no ischemia on recent nuclear stress test which was done for dyspnea. Continue risk factor management. * Assessment & Plan Note - Dean Tilley MD - 01/30/2019 4:18 PM EDTAssociated Problem(s): LUNA (dyspnea on exertion) Could bye due to asthma - since inhalers usually help and wheezing often is present, diastolic dysfunction (which she likely has and apparently was felt to be supported by recent outside echo - however her normal proBNP is reassuring), ischemia - however her nuclear stress by report did not reveal significant reversible ischemia. documented in this encounter Plan of Treatment Not on file documented as of this encounter Procedures Procedure Name Priority Date/Time Associated Diagnosis Comments CALCIUM IONIZED SERUM Routine 01/30/2019 5:01 PM EDT Muscle cramps PRO-BRAIN NATRIURETIC PEPTIDE Routine 01/30/2019 5:01 PM EDT LUNA (dyspnea on exertion) MAGNESIUM Routine 01/30/2019 5:01 PM EDT Muscle cramps CALCIUM Routine 01/30/2019 5:01 PM EDT Muscle cramps BASIC METABOLIC PANEL Routine 01/30/2019 5:01 PM EDT LUNA (dyspnea on exertion) EKG 12-LEAD Routine 01/30/2019 3:35 PM EDT Coronary artery disease, angina presence unspecified, unspecified vessel or lesion type, unspecified whether akhiok or transplanted heart documented in this encounter Results * Calcium, Ionized, Serum (01/30/2019 5:01 PM EDT) Ionized Calcium 1.20 1.15 - 1.33 mmol/L [facility] Comment: Note: Total bilirubin higher than 20 mg/dL may lead to falsely low ionized calcium. Blood specimen (specimen) 01/30/2019 5:01 PM EDT 01/30/2019 5:14 PM EDT Narrative Resulting Agency Comment Spec In Lab Dean Tilley MD CHEMISTRY ORDERABLES Performing Organization Address City/[facility]/ZIP Co de Phone Number [facility] [place] [address] * Calcium (01/30/2019 5:01 PM EDT) Calcium 10.1 8.5 - 10.5 mg/dL [facility] Blood specimen (specimen) 01/30/2019 5:01 PM EDT 01/30/2019 5:14 PM EDT Narrative Resulting Agency Comment Spec In Lab Dean Tilley MD CHEMISTRY ORDERABLES Performing Organization Address [facility] Co de Phone Number [facility] [place] [address] * Magnesium (01/30/2019 5:01 PM EDT) Magnesium 0.91 0.69 - 1.07 mmol/L [facility] Blood specimen (specimen) 01/30/2019 5:01 PM EDT 01/30/2019 5:14 PM EDT Narrative Resulting Agency Comment Spec In Lab Dean Tilley MD CHEMISTRY ORDERABLES Performing Organization Address City/[facility]/ZIP Co de Phone Number [facility] [place] [address] * pro-Brain Natriuretic Peptide (01/30/2019 5:01 PM EDT) NT-proBNP 242 <=450 pg/mL [facility] Blood specimen (specimen) 01/30/2019 5:01 PM EDT 01/30/2019 5:14 PM EDT Narrative Resulting Agency Comment Spec In Lab Dean Tilley MD CHEMISTRY ORDERABLES Performing Organization Address City/[facility]/ZIP Co de Phone Number [facility] [place] [address] * Basic Metabolic Panel (non-fasting) (01/30/2019 5:01 PM EDT) Glucose 104 65 - 199 mg/dL [facility] Comment:Diabetes: >=200 mg/d L plus symptoms Blood Urea Nitrogen 16 8 - 18 mg/dL [facility] Creatinine 0.86 0.70 - 1.20 mg/dL [facility] Sodium 143 135 - 145 mmol/L [facility] Potassium 4.0 3.5 - 5.0 mmol/L [facility] Comment: Please note: ??Patients with WBC >100,000 may have falsely elevated Potassium levels. ??For accurate Potassium quantification in these patients send serum separator tube (gold top) for subsequent determinations. ??Contact the Clinical Chemistry Laboratory if there are any questions. Chloride 105 98 - 107 mmol/L [facility] Carbon Dioxide 25 22 - 31 mmol/L [facility] Anion Gap 13 5 - 15 mmol/L [facility] Calcium 10.1 8.5 - 10.5 mg/dL [facility] Est Glomerular Filtration Rate 63 >=60 mL/min/1. 73 m?? [facility] Comment: The eGFR was calculated using the CKD-EPI equation. As with all creatinine based estimates of kidney function, eGFR values calculated with the CKD-EPI equation are not accurate in patients with acute kidney failure, extremes of body mass or the acutely ill. [email or web address]/[facility] – OKLAHOMA CITYnkf eGFR 73 >=60 mL/min/1. 73 m?? [facility] Comment: The eGFR was calculated using the CKD-EPI equation. As with all creatinine based estimates of kidney function, eGFR values calculated with the CKD-EPI equation are not accurate in patients with acute kidney failure, extremes of body mass or the acutely ill. [email or web address] Blood specimen (specimen) 01/30/2019 5:01 PM EDT 01/30/2019 5:14 PM EDT Narrative Resulting Agency Comment Spec In Lab Dean Tilley MD CHEMISTRY ORDERABLES [facility] [place] [address] * EKG 12 Lead (01/30/2019 3:35 PM EDT) Ventricular rate 49 BPM MUSE SYSTEM Atrial Rate 49 BPM MUSE SYSTEM P-R Interval 182 ms MUSE SYSTEM QRS Duration 102 ms MUSE SYSTEM Q-T Interval 452 ms MUSE SYSTEM QTC Calculated (Bezet) 408 ms MUSE SYSTEM Calculated P Buda 58 degrees MUSE SYSTEM Calculated R Buda -59 degrees MUSE SYSTEM Calculated T Buda 118 degrees MUSE SYSTEM INTERPRETATION Sinus bradycardia Left axis deviation T wave abnormality, consider lateral ischemia Abnormal ECG When compared with ECG of 26-AUG-2015 15:01, Vent. rate has decreased BY ??27 BPM Confirmed by MD KIERSTEN, ELAINE ([id number]) on 01/31/2019 6:43:57 PM MUSE SYSTEM 01/30/2019 3:35 PM EDT 01/31/2019 6:43 PM EDT Dean Tilley MD ECG ORDERABLES MUSE SYSTEM documented in this encounter Visit Diagnoses Diagnosis Coronary artery disease, angina presence unspecified, unspecified vessel or lesion type, unspecified whether akhiok or transplanted heart- Primary Essential hypertension Unspecified essential hypertension Status post coronary artery bypass grafting Postsurgical aortocoronary bypass status LUNA (dyspnea on exertion) Other dyspnea and respiratory abnormality Muscle cramps Cramp of limb documented in this encounter
--- OUTSIDE RECORDS SUMMARY | 2024-03-29 03:36 | XMS_ITS | Encounter Summary ---
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 Name Role Phone Unavailable Primary Care Provider Unavailabl e Reason for Visit * Reason Comments Medication Management Encounter Details Date Type Department Care Team ([facility] st Contact Info) Description 01/26/2019 Specialty [place] [id number] Gilmer Martins [facility] Social History [...] Progress Notes * Gilmer Martins RPH - 01/26/2019 2:23 PM EDT Clinical Management Plan: Refill- Consult Opt out [facility] Specialty Pharmacy Consultation; Gilmer Martins [facility] Comprehensive Medication Management (CMM) Ginger L Perry Ms. Ginger Amador is a 83 [...] 5-7 days prior to next refill. Ginger opted out of a full consult when I reached her today. I did review the injection technique as she had some bruising on her second injection. She also was 1 week late on her second injection. I counseled on the importance of adherence and we will monitor this going forward. Ginger also asked if this would be the type of medication that would be discontinued after a few months, I advised to the contrary and that it is likely a chronic treatment. Was a change made to the Care Plan: no If yes, should the medication be held: No Assessment and Recommendations: Title Type of Medication Management: chronic disease management Referred By: provider Recipient: beneficiary Provider: plan sponsor [facility] Method of Contact: by telephone Allergies and Drug intolerance: Allergies Allergen Reactions ??? Bacitracin ??? Gabapentin Other (See Comments) Mears like a zombie ??? Gramicidin D ??? Ibuprofen ??? Lidocaine ??? Neomycin Sulfate ??? Neosporin [Hydrocortisone] ??? Polymyxin B ??? Polymyxin B Sulfate ??? Dgndbia-Adx-Qpo Reductase Inhibitors Other (See Comments) Muscle soreness/weakness, fatigue ??? Sulfa (Sulfonamide Antibiotics) ??? Wheat Nausea And Vomiting Extreme fatigue and sleepiness Medication Reconciliation Discrepancies (compared to [facility] med list) -none New medications: no New medical conditions: no New allergies: no Adherence: Medication Adherence Patient reported X missed doses in the last month: 0 Any gaps in refill history greater than 2 weeks in the last 3 months: no Demonstrates understanding of importance of adherence: yes Informant: patient Reliability of informant: reliable Provider-estimated medication adherence level: 76-89% Reasons for non-adherence: patient forgets Adherence tools used: directed education Confirmed plan for next specialty medication refill: delivery by pharmacy Refills needed for supportive medications: not needed Are you experiencing any side effects from your medications? no Pt understands no changes to current drug regimen were made at the appointment and that [facility] is providing recommendations (summary located at top of note) for provider review and follow up. Gilmer Martins RPH 01/26/19 2:45 PM documented in this encounter Plan of Treatment Not on file documented as of this encounter Visit Diagnoses Not on filedocumented in this encounter
--- OUTSIDE RECORDS SUMMARY | 2024-03-29 03:36 | XMS_ITS | Encounter Summary ---
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 Name Role Phone Unavailable Primary Care Provider Unavailabl e Encounter Details Date Type Department Care Team (Late st Contact Info) Description 08/03/2016 External [place] [address] Chon Snyder MD [facility] [place] [address] Social History Tobacco Use Types Packs/Day Years [...] Date/Time Associated Diagnosis Comments EMG SCAN Routine 07/30/2016 documented in this encounter Results * Scan Doc: EMG (07/30/2016) Chon Snyder MD MEDIA MGR SCAN EX T ORDR/RSLT documented in this encounter Visit Diagnoses Not on filedocumented in this encounter
--- OUTSIDE RECORDS SUMMARY | 2024-03-29 03:36 | XMS_ITS | Encounter Summary ---
Author Organization Formerly [facility] [place] [address] Care Team Providers Care Lab Technician Name Role Phone Unavailable Primary Care Provider Unavailabl e Reason for Referral * Consultation (Routine) - Specialty Diagnoses / Procedures Referred By Kirk newton Referred To Contact Diagnoses S/P CABG x 4 Tavon Chan MD [facility] [place]IOTH[place] [address] Referral ID Status Reason Start Date Expiration Date V isits Requested Visits Authorized [id number] Evaluate and Treat 07/29/2015 01/25/2016 36 36 Reason for Visit * Auth/Cert - Closed Specialty Diagnoses / Procedures Referred By Kirk newton Referred To Contact Diagnoses cad Procedures @CABG, USING 2 CORONARY ARTERIAL GRAFTS ENDOSCOPIC HARVEST VEIN(S) FOR CABG @CABG, TWO VENOUS GRAFTS & ARTERIAL GRAFT Referral ID Status Reason Start Date Expiration Date Visits Re quested Visits Authorized [id number] Closed 1 1 Encounter Details Date Type Department Care Team (Latest Contact Info) Description 07/24/2015 8:34 AM EST - 07/29/2015 11:49 AM EST Hospital Encounter Intermediate [place] [address] Tavon Chan MD [facility] [place]OTH[place] [address] Coronary artery 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; S/P CABG x 4 Discharge Disposition: Swing Bed Social History Tobacco Use Types Packs/Day Years [...] Sign Reading Time Taken Comments Blood Pressure 152/65 07/29/2015 8:17 AM EST Pulse 63 07/29/2015 8:14 AM EST Temperature 36.5 ??C (97.7 ??F) 07/29/2015 8:14 AM ES T Respiratory Rate 20 07/29/2015 8:14 AM EST Oxygen Saturation 97% 07/29/2015 8:14 AM EST Inhaled Oxygen Concentration - - Weight 78.1 kg (172 lb 2.9 oz) 07/29/2015 6:28 A M EST Height 154.9 cm (5' 0.98) 07/24/2015 9:12 AM ES T Body Mass Index 32.55 07/24/2015 9:12 AM EST documented in this encounter Discharge Summaries * Candida Chakraborty, VANCE - 07/29/2015 9:15 AM EST Inpatient - Discharge Summary Patient Name: Ginger Amador Patient Age: 79 y.o. Birthdate: 1935 Language: Samoan Race: White Ethnicity: Not nor Admit Date: 07/24/2015 Discharge Date: 07/29/15 Attending Physician: Tavon Chan MD Follow-up Recommendations for Providers: Please continue routine management of cardiovascular risk factors including blood pressure, lipids,glucose, etc. Please note any changes to medications. Patient to follow-up with Dr. Foley, PCP in 1-2 weeks. Patient to follow-up with Cardiology in [facility]. Cardiology Dr. Jatin Wagner on Tuesday at 11:30 am, please call [phone] with any questions or concerns Patient to follow-up with Cardiac Surgery, Dr. Chan, in ~ 4 weeks with CXR and EKG. Inpatient Provider Contact Information: [facility] Section of Cardiac Surgery [facility] [place] [id number] FAX [phone] Discharge Diagnoses (Hospital Problems) Primary Diagnoses: CAD, S/P CABG X 4 07/24/15. Secondary Diagnoses: None Other Diagnoses (Chronic Problems): Active Non-Hospital Problems Diagnosis ??? Abnormal stress test ??? Actinic keratosis ??? Verruca vulgaris ??? Seborrheic keratosis Discharged to: Rehab facility Functional and Cognitive Status: Stable Discharge Conditions/Prognosis: Deconditioned but improving Prior To Admission Medications Prescriptions prior to admission Medication Sig Dispense Refill Last Dose ??? amLODIPine (NORVASC) 5 mg Tablet Take 2 tablets by mouth daily. 30 tablet 11 07/24/2015 at Unknown time ??? aspirin 81 mg Tablet, Delayed Release (E.C.) Take 1 tablet by mouth daily. 30 tablet 3 07/23/2015 at Unknown time ??? atorvastatin (LIPITOR) 80 mg Tablet Take 1 tablet by mouth every evening. 30 tablet 6 07/23/2015t Unknown time ??? meTOPROLOL succinate (TOPROL-XL) 50 mg Tablet Sustained Release 24 hr Take 1 tablet by mouth daily. 30 tablet 12 07/24/2015 at Unknown time ??? nitroGLYcerin (NITROSTAT) 0.4 mg Tablet, Sublingual Place 1 tablet under the tongue every 5 minutes as needed for Chest pain. 25 tablet 3 07/23/2015 at Unknown time ??? [DISCONTINUED] chlorhexidine (HIBICLENS) 4 % Liquid Apply topically daily as needed. Shower from head to toe with Chlorhexidine the night before surgery . 120 mL 0 07/24/2015 at Unknown time ??? albuterol (PROVENTIL HFA;VENTOLIN HFA;PROAIR) 90 mcg/actuation HFA Aerosol Inhaler Inhale 2 puffs into the lungs every 4 hours as needed for Wheezing. Use with spacer Unknown at Unknown time ??? fluticasone-salmeterol (ADVAIR DISKUS) 250-50 mcg/dose diskus inhaler 1 Disk(s), Inh, Twice daily Unknown at Unknown time ??? [DISCONTINUED] CIS Free Text Med - Albuterol 2 Puff(s), Inh, Four times daily Four times daily 06/30/2015 at Unknown time Updated Allergies/ADRs: Allergies Allergen Reactions ??? Bacitracin ??? Gramicidin D ??? Lidocaine ??? Neomycin Sulfate ??? Neosporin [Hydrocortisone] ??? Polymyxin B ??? Polymyxin B Sulfate ??? Sulfa (Sulfonamide Antibiotics) ??? Wheat Nausea And Vomiting Extreme fatigue and sleepiness History of Presentation: Mrs. Amador is being referred for consideration of CABG. Mrs. Amador is a 79-year-old female who has been admitted to the hospital with severe hypertensionand increasing symptoms of dyspnea on exertion. Mrs. Amador denies any anginal type symptoms or anginal equivalence. She has been having increasing fatigue and dyspnea on exertion, which is relieved with rest. 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 Her past medical history is significant for hypertension, hypercholesterolemia, and no diabetes. Her past surgical history is noncontributory for any vein strippings or chest procedures. Mrs. Monacoaris an active woman. 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 She has been having increasing symptoms.She is not a smoker. She does not drink and she is not a Jehovah witness. Overall Impression: Mrs. Amador has what seems to be stable symptoms. She has severe disease and when presented with the options of stenting versus bypass she has elected to go with bypass surgery. She will most likely get IMAs in two veins. We went over the risks and benefits of surgery, that the risks include, but are not limited to bleeding, infection, organ failure, stroke, , need for pacemaker, and failure ofthe bypasses. 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 Major Procedures/Operations: 07/24/15 CABG times 4: DAUGHERTY to LAD, SVG to om, svg to diag, jerardo to rca. Endoscopic vein harvest Hospital Course: Ginger Amador was admitted to [facility] on 07/24/2015 via the Same Day Program. She was brought to the operating room where Dr. Tavon Chan performedCABG X 4. She tolerated the procedure and was brought to the Cardiovascular Intensive Care Unit forrecovery. She initially required the pharmacologic support of intravenous levophed. She was extubated from the ventilator on the day of surgery. All drips were weaned to off. Routine postoperative and home medications were started and a diet was advanced. She was started on beta blockade and this was optimized. Diuretics were started and she responded appropriately. By postoperative day # 1 she was transferred to the Intermediate Cardiac Care Unit for continued rehabilitation. All tubes, lines, and epicardial pacing wires were removed without incident. She voided normally after her Galvez was removed. She was seen by Physical Therapy and Cardiac Rehabilitation. Sternal precaution education was provided. Her discharge plan at this time is to discharge to rehab. The remainder of the her hospital course was uneventful and by postoperative day #4 she had met all criteria for discharge. Pain was controlled on oral medications. She had walked. She was tolerating a regular diet and had a bowel movement. Vital Signs at Discharge: Last set of vitals: BP 152/65 mmHg Pulse 63 Temp(Src) 36.5 ??C (97.7 ??F) (Oral) Resp 20 Ht154.9 cm (5' 0.98) Wt 78.1 kg (172 lb 2.9 oz) BMI 32.55 kg/m2 SpO2 97% Patient Vitals for the past 168 hrs: Weight 07/29/15 0628 78.1 kg (172 lb 2.9 oz) 07/28/15 0648 78 kg (171 lb 15.3 oz) 07/27/15 0654 79 kg (174 lb 2.6 oz) 07/26/15 0503 79.6 kg (175 lb 7.8 oz) 07/25/15 0400 78.7 kg (173 lb 8 oz) 07/24/15 0912 74.208 kg (163 lb 9.6 oz) Current weight: 78 kg Admit weight: 74.2 kg. Pertinent physical exam findings prior to discharge: afvss I/os reviewed Nad, alert and oriented Ctab, still on O2 1L NC Incision cdi RRR. No murmur abd benign, soft, NT, ND Lower Extremities without edema Important Studies and Lab Data: Lab Results Component Value Date WBC 11.1* 07/27/2015 RBC 3.94 07/27/2015 HGB 10.4* 07/27/2015 HCT 32.6* 07/27/2015 PLATELET 128* 07/27/2015 Recent Labs 07/24/15 1447 INR 1.7* Lab Results Component Value Date NA 137 07/27/2015 K 4.0 07/29/2015 CL 98 07/27/2015 CO2 26 07/27/2015 BUN 13 07/27/2015 CREATININE 0.77 07/27/2015 Pending Studies and Lab Data: None. Immunizations Given this Hospitalization: Immunization History Administered Date(s) Administered ??? Influenza Vaccine, Whole 06/28/2005 ??? Td, adult 10/09/2003 Smoking Status at Discharge: History Smoking status ??? Never Smoker Smokeless tobacco ??? Not on file Discharge Medications: Your Medications New Medications Dose Details acetaminophen 500 mg Tab Commonly known as: TYLENOL Take 1 tablet by mouth every 4 hours as needed for Pain. 500 mg Quantity: 30 tablet Refills: 1 furosemide 20 mg Tab Commonly known as: LASIX Take 1 tablet by mouth 2 times daily for 31 days. 20 mg Quantity: 60 tablet Refills: 1 meTOPROLOL tartrate 25 mg Tab Commonly known as: LOPRESSOR Take 1 tablet by mouth every 8 hours. 25 mg Quantity: 90 tablet Refills: 0 oxyCODONE 5 mg Tab Commonly known as: ROXICODONE Take 0.5-1 tablets by mouth every 4 hours as needed for Pain. 2.5-5 mg Quantity: 40 tablet Refills: 0 potassium chloride 10 mEq Tbsr Commonly known as: K-DUR/KLOR-CON Take 1 tablet by mouth 2 times daily for 31 days. 10 mEq Quantity: 60 tablet Refills: 1 senna-docusate 8.6-50 mg Tab Commonly known as: PERICOLACE Take 2 tablets by mouth daily as needed for Constipation. 2 tablet Quantity: 60 tablet Refills: 1 Continued medications, unchanged Dose Details ADVAIR DISKUS 250-50 mcg/dose Dsdv 1 Disk(s), Inh, Twice daily Generic drug: fluticasone-salmeterol Refills: 0 albuterol 90 mcg/actuation Hfaa Commonly known as: PROVENTIL HFA;VENTOLIN HFA;PROAIR Inhale 2 puffs into the lungs every 4 hours as needed for Wheezing. Use with spacer 2 puff Refills: 0 aspirin 81 mg Tbec Take 1 tablet by mouth daily. 81 mg Quantity: 30 tablet Refills: 3 atorvastatin 80 mg Tab Commonly known as: LIPITOR Take 1 tablet by mouth every evening. 80 mg Quantity: 30 tablet Refills: 6 STOPPED Medications amLODIPine 5 mg Tab Commonly known as: NORVASC chlorhexidine 4 % Liqd Commonly known as: HIBICLENS CIS FREE TEXT MED meTOPROLOL succinate 50 mg Tablet sr Commonly known as: TOPROL-XL nitroGLYcerin 0.4 mg Subl Commonly known as: NITROSTAT Instructions Given to Patient at Discharge: General Instructions None Discharge Instructions: Call your doctor if: You have a fever of greater than 101 degrees, shaking chills, if you develop redness or drainage from your incision sites, or if you have questions. Please call your surgeon's office if you have any discharge or drainage from your chest incision. Your surgeon, Dr. Tavon Chan and/or the Cardiac Surgery Physician Gun Stocker Team may be reached at . Weight: Weigh yourself daily. Please call the office if you notice increasing weight, increasing fluid retention (edema), and/or SOB. Sternal (breast bone) precautions: No lifting greater than 7-10 pounds; no pushing or pulling with upper extremities; no excessive chest stretching for the first 4 weeks. Further instructions will begiven to you at your follow-up appointment. Activity level: Walk three times a day. You should continue to increase your walks by 1-2 minutes each day. It is expected that you will be walking 20-30 minutes twice a day within 3-4 weeks after discharge to home. Rest between activities and after meals. Use common sense, don't exhaust yourself. Biking: You may use a stationary bicycle whenever you are comfortable enough to permit this. Tighten the resistance slightly. Increase the amount of time on the bicycle as you would do for your walks, a minute or two each day. No biking outside until after your return appointment with Dr. Tavon Slater. You may use a [place] or treadmill but avoid any pulling motion with the arms. Home activities: You may do light housework, e.g. dusting, setting the table, washing dishes, preparing a meal. Light carpentry and gardening are allowed. Avoid trying to open tight jars and stuck windows. No vacuuming, mopping, raking, shoveling, digging or hoeing until after your return visit with the surgeon. Sexual activity: You may engage in sexual activity when you feel ready. Use a position that protects your sternum (breastbone). Do not have your partner lie on your chest. Stairs: There are no restrictions on stair climbing. Use common sense. Don't exhaust yourself. Activities outside the home: After the first week home you may go out to dinner, visit friends, go to a movie, go to jewish, etc. Heavy activities: No hunting, skiing, jogging, snow shoveling, snowmobiling, lawn mowing, swimming,golf or tennis until after your return appointment with the surgeon. Do not ride motorcycles, ATShoprocket'stractors or horses. Avoid the use of a rifle with kickback against the shoulder for six months. Sleep: Try to establish normal sleep patterns. Long naps during the day may make it hard for you tosleep at night. Use the pain medication at bedtime for the first week at home. If you have nightmares, contact us. Some medications make this worse and these can be changed. Smoking: It is very important that you not smoke after surgery. Smoking cessation education was provided as appropriate. If you need further assistance with this please call and you will be referred to a smoking cessation specialist. Medications: Take only those medications listed on your discharge information. Keep your pain undercontrol so you can be active, do your coughing and breathing exercises and sleep. Contact us if thepain medication isn't working for you. Do not take any herbal preparations until after you return to see the surgeon. Special Physician Instructions: DO NOT USE ANY IBUPROFEN (ADVIL, MOTRIN, ETC) OR OTHER NSAIDS (NONSTEROIDAL ANTI-INFLAMMATORY DRUGS) FOR A TOTAL OF 10 DAYS AFTER SURGERY. PLEASE CONTACT THE CARDIOTHORACIC SURGERY OFFICE IF YOU HAVE QUESTIONS ABOUT WHICH DRUGS YOU SHOULD NOT USE. . Diet: You should follow a regular diet until your appetite returns to normal. At that point in timeyou should resume a low fat, low cholesterol, [place] Heart Association Diet. Driving: No driving until cleared by your surgeon. Avoid long trips if possible. If you must go on a long trip, stop the car and walk every hour. Shower/Bath: You may shower daily. No baths, soaking, or swimming until cleared by your surgeon. Wound care: Wash your incisions daily with antibacterial soap and rinse well, pat dry. Assess for any signs of infection such as increased redness, pain, warmth or drainage. Please call your surgeon's office if you have any discharge or drainage from your chest incision. If there is a lot of swelling, apply kimberly wraps during the day and remove at bedtime. Elevate your legs when you are sitting. REMOVE CHEST TUBE SUTURES ON OR AFTER 08/03/15. Oxygen therapy: 1 liters via nasal prongs to keep oxygen saturation greater than 90% wean as tolerated Follow up appointments: 1. You should arrange to see your primary care physician, MARQUIS FOLEY DO, in one-to-two weeksor as soon as possible. 2. Please follow-up with Cardiology in [facility]. Cardiology Dr. Jatin Wagner on Tuesday at 11:30 am, please call [phone] with any questions or concerns 3. You will return to clinic to see Dr. Tavon Chan or a Cardiac Surgery PA in ~4 weeks and will have a CXR and Echo at that time. A letter will be mailed to you with your appointment information. Cardiac Rehabilitation: [facility] Ginger Amador was seen today regarding participation in the outpatient Phase 2 Cardiac Rehabilitation at [facility] . The patient agrees to a referral to this program. She will initially go to SNF at [facility] The referral will be sent at discharge and the patient should be contacted by the Program within 2-4 weeks from discharge. Future Appointments and Orders Future Orders Complete By Expires XR Chest Routine PA & Lateral [[id number] Custom] 07/28/2015 07/27/2016 Process Instructions: Scheduling Instructions: Questions: Where will study be performed?: [facility] Portable exam?: Reason for exam and clinical history: s/p cabgx4 Other pertinent information: Stat read required?: Date of injury if applicable: Requested Time: EKG 12 Lead [EKG1 Custom] As directed Process Instructions: Scheduling Instructions: Questions: Which location will this be performed?: [place] Is a rhythm strip needed?: No If EKG Reason is Pre-op Evaluation, indicate diagnosis for surgery.: Should this service/procedure be billed to the research sponsor?: Referral to Cardiac Rehab [[id number] Custom] As directed Process Instructions: If no progress note charted, please enter Clinical details in comments. Scheduling Instructions: Questions: My question or request is: s/pCABG; cardiac rehab @ [facility] Arrangements for VNA/home care: As above. VN RN OR PCP TO PLEASE REMOVE CHEST TUBE SUTURES ON OR AFTER 08/03/15. Signed: CANDIDA CHAKRABORTY APRN [facility] Section of Cardiac Surgery [facility] [place] [phone] FAX [phone] Date: 07/29/2015 CC: DO Toño FIGUEROA Nathaniel W II, MD [facility] [place] [address] documented in this encounter Discharge Instructions * Patient Instructions* Candida Chakraborty APRN - 07/29/2015 8:04 AM EST Discharge Instructions: Call your doctor if: You have a fever of greater than 101 degrees, shaking chills, if you develop redness or drainage from your incision sites, or if you have questions. Please call your surgeon's office if you have any discharge or drainage from your chest incision. Your surgeon, Dr. Tavon Chan and/or the Cardiac Surgery Physician Gun Stocker Team may be reached at . Weight: Weigh yourself daily. Please call the office if you notice increasing weight, increasing fluid retention (edema), and/or SOB. Sternal (breast bone) precautions: No lifting greater than 7-10 pounds; no pushing or pulling with upper extremities; no excessive chest stretching for the first 4 weeks. Further instructions will begiven to you at your follow-up appointment. Activity level: Walk three times a day. You should continue to increase your walks by 1-2 minutes each day. It is expected that you will be walking 20-30 minutes twice a day within 3-4 weeks after discharge to home. Rest between activities and after meals. Use common sense, don't exhaust yourself. Biking: You may use a stationary bicycle whenever you are comfortable enough to permit this. Tighten the resistance slightly. Increase the amount of time on the bicycle as you would do for your walks, a minute or two each day. No biking outside until after your return appointment with Dr. Tavon Slater. You may use a [place] or treadmill but avoid any pulling motion with the arms. Home activities: You may do light housework, e.g. dusting, setting the table, washing dishes, preparing a meal. Light carpentry and gardening are allowed. Avoid trying to open tight jars and stuck windows. No vacuuming, mopping, raking, shoveling, digging or hoeing until after your return visit with the surgeon. Sexual activity: You may engage in sexual activity when you feel ready. Use a position that protects your sternum (breastbone). Do not have your partner lie on your chest. Stairs: There are no restrictions on stair climbing. Use common sense. Don't exhaust yourself. Activities outside the home: After the first week home you may go out to dinner, visit friends, go to a movie, go to jewish, etc. Heavy activities: No hunting, skiing, jogging, snow shoveling, snowmobiling, lawn mowing, swimming,golf or tennis until after your return appointment with the surgeon. Do not ride motorcycles, ATV'stractors or horses. Avoid the use of a rifle with kickback against the shoulder for six months. Sleep: Try to establish normal sleep patterns. Long naps during the day may make it hard for you tosleep at night. Use the pain medication at bedtime for the first week at home. If you have nightmares, contact us. Some medications make this worse and these can be changed. Smoking: It is very important that you not smoke after surgery. Smoking cessation education was provided as appropriate. If you need further assistance with this please call and you will be referred to a smoking cessation specialist. Medications: Take only those medications listed on your discharge information. Keep your pain undercontrol so you can be active, do your coughing and breathing exercises and sleep. Contact us if thepain medication isn't working for you. Do not take any herbal preparations until after you return to see the surgeon. Special Physician Instructions: DO NOT USE ANY IBUPROFEN (ADVIL, MOTRIN, ETC) OR OTHER NSAIDS (NONSTEROIDAL ANTI-INFLAMMATORY DRUGS) FOR A TOTAL OF 10 DAYS AFTER SURGERY. PLEASE CONTACT THE CARDIOTHORACIC SURGERY OFFICE IF YOU HAVE QUESTIONS ABOUT WHICH DRUGS YOU SHOULD NOT USE. . Diet: You should follow a regular diet until your appetite returns to normal. At that point in timeyou should resume a low fat, low cholesterol, [place] Heart Association Diet. Driving: No driving until cleared by your surgeon. Avoid long trips if possible. If you must go on a long trip, stop the car and walk every hour. Shower/Bath: You may shower daily. No baths, soaking, or swimming until cleared by your surgeon. Wound care: Wash your incisions daily with antibacterial soap and rinse well, pat dry. Assess for any signs of infection such as increased redness, pain, warmth or drainage. Please call your surgeon's office if you have any discharge or drainage from your chest incision. If there is a lot of swelling, apply kimberly wraps during the day and remove at bedtime. Elevate your legs when you are sitting. REMOVE CHEST TUBE SUTURES ON OR AFTER 08/03/15. Oxygen therapy: 1 liters via nasal prongs to keep oxygen saturation greater than 90% wean as tolerated Follow up appointments: 1. You should arrange to see your primary care physician, MARQUIS FOLEY DO, in one-to-two weeksor as soon as possible. 2. Please follow-up with Cardiology Cardiology Dr. Jatin Wagner on Tuesday at 11:30 am, please call [phone] with any questions or concerns 3. You will return to clinic to see Dr. Tavon Chan or a Cardiac Surgery PA in ~4 weeks and will have a CXR and Echo at that time. A letter will be mailed to you with your appointment information. Cardiac Rehabilitation: [facility] Ginger Amador was seen today regarding participation in the outpatient Phase 2 Cardiac Rehabilitation at [facility] . The patient agrees to a referral to this program. She will initially go to SNF at [facility] The referral will be sent at discharge and the patient should be contacted by the Program within 2-4 weeks from discharge. * Attachments The following attachments cannot be sent through Care Everywhere. * CABG (CORONARY ARTERY BYPASS GRAFT SURGERY) : GENERAL INFO (TOGOLESE) documented in this encounter Medications at Time of Discharge Medication Sig Dispensed Refills Start Date End Date potassium chloride (K-DUR/KLOR-CON) 10 mEq Tablet Sustained Release Take 1 tablet by mouth 2 times daily for 31 days. 60 tablet 1 07/28/2015 08/28/2015 acetaminophen (TYLENOL) 500 mg Tablet Take 1 tablet by mouth every 4 hours as needed for Pain. 30 tablet 1 07/28/2015 08/26/2015 furosemide (LASIX) 20 mg Tablet Take 1 tablet by mouth 2 times daily for 31 days. 60 tablet 1 07/28/2015 08/26/2015 meTOPROLOL tartrate (LOPRESSOR) 25 mg Tablet Take 1 tablet by mouth every 8 hours. 90 tablet 0 07/28/2015 08/26/2015 oxyCODONE (ROXICODONE) 5 mg Tablet Take 0.5-1 tablets by mouth every 4 hours as needed for Pain. 40 tablet 0 07/28/2015 08/26/2015 senna-docusate (PERICOLACE) 8.6-50 mg Tablet Take 2 tablets by mouth daily as needed for Constipation. 60 tablet 1 07/28/2015 08/26/2015 albuterol (PROVENTIL HFA;VENTOLIN HFA;PROAIR) 90 mcg/actuation HFA [...] 07/02/2015 07/13/2016 documented as of this encounter Progress Notes * Barbara Garcia RN - 07/29/2015 11:48 AM EST D/c education completed and any questions answered. Pt being taken by daughter to [facility] for rehab. * Rafael Hauser - 07/29/2015 10:47 AM EST Nutrition Services - Education Note Ginger Amador : 1935 AGE: 79 y.o. Patient Active Problem List Diagnosis Date Noted ??? Hospital-CAD (coronary artery disease) 07/02/2015 ??? Hospital-Hypertension 07/02/2015 ??? Abnormal stress test 07/01/2015 ??? Actinic keratosis 03/30/2013 ??? Verruca vulgaris 09/28/2012 ??? Seborrheic keratosis 09/28/2012 Reason for Nutrition Intervention: Patient request. Diet Order: [facility] Appetite: Good Food allergies: Wheat noted. Chewing/Swallowing difficulty: none Wt Readings from Last 3 Encounters: 07/29/15 78.1 kg (172 lb 2.9 oz) 07/02/15 74.8 kg (164 lb 14.5 oz) 07/01/15 75.569 kg (166 lb 9.6 oz) Ht Readings from Last 3 Encounters: 07/24/15 154.9 cm (5' 0.98) 07/02/15 154.9 cm (5' 0.98) 07/01/15 154.9 cm (5' 1) Body mass index is 32.55 kg/(m^2). Education: Nutrition After Heart Surgery dietary guidelines. Verbalized good understanding. Education material, with means of contact provided. Assessment: Patient verbalized good understanding of protein needs following heart surgery. She reported a fair appetite without difficulty chewing or swallowing. She is tolerating current diet without nausea or vomiting. Denied need for supplements. Provided patient with copy of Guidelines for a Heart Healthy Lifestyle booklet, with emphasis on the last page, Nutrition After Heart Surgery. Pt had no further questions at this time. Provided contact information. Encouraged pt to contact Foodand Nutrition services with any questions that may arise. Nutrition Plan: Continue current diet. Recommend Daily Multi Vitamins. Encourage good po intake. Monitor weight. Support and encouragement provided. Nutrition services to follow weekly thru hospital course unless consulted in the interim. PRINCE Cherry * Berhane Ochoa PA - 07/29/2015 8:18 AM EST Cardiac Surgery Service Inpatient Progress Note ID: Ginger Amador ( ) is a 79 y.o. female admitted on 07/24/2015 now POD#5 s/p CABGx4 IE: Ambulating, still has O2 requirement 1 LNC JENNIFER o/n Afebrile S: Pain controlled. Malissa PO diet. Urinating and having BM's. Denies n/v, fever/chills, sob, CP, abd pain. Physical Exam: afvss I/os reviewed Nad, alert and oriented Ctab, still on O2 1L NC Incision cdi RRR. No murmur abd benign, soft, NT, ND Lower Extremities without edema Labs: K+4.0. U/A neg Assessment/plan: Ginger Amador is a 79 y.o. female POD#5 s/p CABGx4, doing okay. Still has a low O2 requirement. Will cont to try and wean. Ready for rehab today. Will need 1 month of lasix upon discharge. Tylenol, Oxy Statin, lopressor 25TID Wean O2 as malissa. Duonebs prn. Cough, deep breathe, ambulate, IS Protonix, RBO's ASA 81 K+prn, Lasix 20 IV'' will be transitioned to PO upon discharge Dispo: Rehab Discussed on rounds this AM WILBERT MOSER * Abi Ball DT - 07/28/2015 3:20 PM EST Nutrition Services - Education Note Ginger Amador : 1935 AGE: 79 y.o. Patient Active Problem List Diagnosis Date Noted ??? Hospital-CAD (coronary artery disease) 07/02/2015 ??? Hospital-Hypertension 07/02/2015 ??? Abnormal stress test 07/01/2015 ??? Actinic keratosis 03/30/2013 ??? Verruca vulgaris 09/28/2012 ??? Seborrheic keratosis 09/28/2012 Reason for Nutrition Intervention: Procedure Diet Order: Regular Appetite: Poor Food allergies: Wheat Wt Readings from Last 3 Encounters: 07/28/15 78 kg (171 lb 15.3 oz) 07/02/15 74.8 kg (164 lb 14.5 oz) 07/01/15 75.569 kg (166 lb 9.6 oz) Ht Readings from Last 3 Encounters: 07/24/15 154.9 cm (5' 0.98) 07/02/15 154.9 cm (5' 0.98) 07/01/15 154.9 cm (5' 1) Body mass index is 32.51 kg/(m^2). Education: Nutrition After Heart Surgery dietary guidelines. Verbalized understanding. Education material, with means of contact provided. Assessment: Patient verbalized understanding of protein needs following heart surgery. She reporteda poor r/t being upset about discharging. She was very frustrated and did not want to go over packet, however did understand the importance of protein. Denied need for supplements or high protein snacks. Provided patient with copy of Guidelines for a Heart Healthy Lifestyle booklet, with emphasison the last page, Nutrition After Heart Surgery. Pt had no further questions at this time. Provided contact information. Encouraged pt to contact Food and Nutrition services with any questions thatmay arise. Nutrition Plan: Continue current diet. Encourage good po intake. Monitor weight. Support and encouragement provided. Nutrition services to follow weekly thru hospital course unless consulted in the interim. PRINCE Gregory * Nallely Wooten - 07/28/2015 12:41 PM EST Office of Care Management/Umbrella Supervisor Patient Name: Ginger Amador : 1935 Patient has been offered a swing bed at [facility]. Pt will be transported by private transportation. No MD to MD report necessary Please call Nursing Report to [phone] , ask for kerfer machine operator. Info to accompany patient: Narcotic Prescriptions Copies of Medication Administration Records and IV sheets for past 10 days. Plan: Umbrella Supervisor will be available to the patient and CRC for further assistance. Patient will be discharged to: [address] [place] [id number] Nallely Wooten, Umbrella Supervisor * Berhane Ochoa PA - 07/28/2015 11:36 AM EST Cardiac Surgery Service Inpatient Progress Note ID: Ginger Amador ( ) is a 79 y.o. female admitted on 07/24/2015 now POD#4 s/p CABGx4 IE: Ambulating, still has O2 requirement JENNIFER o/n Afebrile, a little hypertensive this AM. S: Pain well controlled. Malissa PO diet. Urinating and having BM's. Denies n/v, fever/chills, sob, CP,abd pain. Physical Exam: afvss I/os reviewed Nad, alert and oriented Ctab, still on O2 1L NC Incision cdi RRR. No murmur abd benign, soft, NT, ND Lower Extremities without edema Labs: K+3.7. U/A neg Assessment/plan: Ginger Amador is a 79 y.o. female POD#4 s/p CABGx4, doing okay. Will increase lopressor today for HTN this AM. Still has a low O2 requirement. Will cont to try and wean. Ready for rehab today. Will need 1 month of lasix upon discharge. Tylenol, Oxy Statin, lopressor 25TID Wean O2 as malissa. Duonebs prn. Cough, deep breathe, ambulate, IS Protonix, RBO's ASA 81 K+prn, Lasix 20 IV'' Dispo: Rehab Discussed on rounds this AM WILBERT MOSER * Gibson Downing, PT - 07/28/2015 11:05 AM EST Physical Therapy Treatment Note Visit #: 3 Patient Dx: patient is a 79 y.o. female of [place]av[place] Mchugh, admitted on 07/24/2015 with h/o decreased activity tolerance, SOB and angina. 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 Post-op coursestable.. Precautions: sternal (no lifting >7-10 lbs.; no pushing or pulling with UE's; no excessive cheststretching). Staff communication/Mobility Recommendations: ambulate frequently Interval History: No acute events S: I am doing ok, but I'm definitely not ready to go home today. O: Patient seen for 28 mins for bed mobility, transfers, ambulation, review of precautions and IS to address goals. Pt demonstrated the following ?? Patient in hallway on arrival for PT. ?? Supine <> sit, HOB flat after review of technique. ?? Sit to stand: independent within precautions ?? Patient ambulated around room without AD ?? Ambulated 160' (half with and half without FWW) ?? Patient went back to bed at end of RX, to take a rest before lunch. VITALS: `HR 82-104 with activity; Spo2 86-95% (does dip on RA with ambulation and feels short of breath). Pain: Controlled, but wonder if she has more pain than she realizes and may be a little guarded. Education: Pt was educated on post-op sternal precautions, use of incentive spirometer, and the importance of deep breathing. Pt's status, treatment, and mobility recommendations were discussed with the nursing staff. A: SOB today, Spo2 in mid-high 80's with ambulation. Pt does not feel ready to go home alone today,PT concurs. May benefit from short term inpt stay to maximize endurance and confidence and improve oxygenation, unless she improves enough in the next 24-48 hours to go home alone. Physical Therapy Goals: To be achieved prior to d/c: 1. Pt will ambulate independently as tolerated without an assistive device to allow for a safe d/c.SOB with ambulation, Spo2 in mid-high 80's with mobility 2. Pt will perform all post op cardiac surgery exercises adequately. 3. Pt will demonstrate independence with incentive spirometer to promote lung function: 2L goal (1000 ml at this time) 4. Pt will demonstrate understanding of sternal precautions to allow for a safe d/c.MET 5. Pt will be able to transfer sit <-> stand independently while maintaining sternal precautions to allow for a safe d/c. MET 6. Pt will be able to go supine <-> sit independently while maintaining sternal precautions to allow for a safe d/c.MET 7. Pt will be able to go up and down at least 1 flight of stairs using a rail for balance only independently to prepare for a safe d/c. (Patient has 5 stairs - MET 07/27) Discharge Recommendations: Home with support from family vs short term inpatient stay for continuedPT. Pt does live alone. Considering her borderline Spo2 with mobility on RA, her SOB and general lack of confidence , she is certainly not ready to go home alone today (has family support and friendsto help If I call them). May benefit from short term inpt stay for continued practice with mobility/conditioning. P: Pt to be seen 3-5x/wk for patient and family/caregiver education and training on sternal precautions, functional mobility, gait, stairs, exercise, safety awareness, endurance & energy conservation, and d/c planning. Total time spent with patient: 25 minutes Total timed interventions: 25 minutes Pager: [phone] GIBSON DOWNING PT Physical Therapy Rehabilitation Department * Cabrera Hopson RN - 07/28/2015 10:31 AM EST Office of Care Management 4 [facility] Cardiac Care Steel Fixer RN Cabrera Hopson RN, MSN Pager [phone] Office of Care Management (OCM) / Steel Fixer(CM)/ Initial Assessment Discussed patient with Provider Team and in multidisciplinary discharge-planning rounds. Reviewed record and interviewed patient. Introduced/reviewed CM role and services accepted. 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 CURRENT FUNCTIONAL STATUS: Independent with ADLs, working with rehab on ambulation, transfers, and stairs SOCIAL / FAMILY SUPPORTS: daughter lives in area, several friends in area, available to help with cooking, cleaning, chopping, laundry and driving ADVANCE DIRECTIVES: On file HEALTH /PRESCRIPTION COVERAGE: medicare A/B, AARP, no copay concerns, prefers [facility] pharmacy in [facility] CURRENT HOME/COMMUNITY SERVICES/EQUIPMENT: none LOGGING EQUIPMENT MECHANIC REFERRAL: not needed at this time PRIMARY CARE PHYSICIAN: MARQUIS FOLEY DO [address] / [place] [id number] POTENTIAL DISCHARGE NEEDS: SNF, 3 choices: [facility] PHONE: [phone] FAX: [phone] [facility] [address] [place] [address] [facility] (Swing) [address] [place] [address] (Accepts pts only after exhausting all other local SNF options ANTICIPATED BARRIERS TO DISCHARGE: pt's daughter fell this weekend, was originally supposed to transport TRANSPORTATION @ D/C: Daughter/friends? PLAN: CM will continue to monitor progress, follow for continuity of care and assist with dischargeplanning while hospitalized . * Cabrera Hopson RN - 07/28/2015 10:27 AM EST Office of Care Management 4 [facility] Cardiac Care Steel Fixer RN Cabrera Hopson RN, MSN Pager [phone] Patient would benefit from acute/SNF/swing/LTAC rehab at discharge. Full Disclosure Statement provided, as appropriate. ?? Met with patient/family at bedside. Provided [facility], Office of Care Management letter from the Diploma Medical Assistant pertaining to rehab referrals.. ?? Reviewed levels of rehab including SNF, swing, acute and LTAC. ?? A list that serves the geographical area which the patient resides or the geographical area requested has been provided through [employer] search. ?? Requested patient/family provide at least three choices for referral. ?? Patient/family request referrals to [facility] PHONE: [phone] FAX: [phone] [facility] [address] [place] [address] [facility] ([facility]) [address] [place] [address] (Accepts pts only after exhausting all other local SNF options Note routed to Umbrella Supervisor who will communicate referrals to facilities via [employer] program. * China Mandujano RN - 07/28/2015 4:22 AM EST Patient reports feeling SOB, states her breathing feels shallow. Some wheezes audible but upon auscultation lungs clear but diminished. 95% on 1L NC. Patient requesting inhaler. RN informed patient it was not scheduled at this time. Encouraged her to use her IS. Patient insisted she uses her inhaler as needed at home. RN watched patient take 2 puff of albuterol inhaler. Will discuss possibly increasing dosage with team this morning. * Gayla Devlin - 07/27/2015 12:13 PM EST Physical Therapy Treatment Note Visit #: 2 Patient Dx: patient is a 79 y.o. female of [place]av[place] Mchugh, admitted on 07/24/2015 with h/o decreased activity tolerance, SOB and angina. 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 Post-op coursestable.. Precautions: sternal (no lifting >7-10 lbs.; no pushing or pulling with UE's; no excessive cheststretching). Staff communication/Mobility Recommendations: ambulate frequently Interval History: No acute events S: I am feeling great this morning O: Patient seen for 25 mins for bed mobility, transfers, ambulation, and stairs to address goals. Pt demonstrated the following ?? Patient in bed upon arrival; agreeable to PT ?? Supine <> sit, HOB flat, CGA with max verbal cues for technique/precautions ?? Sit to stand: independent within precautions ?? Patient ambulated around room without AD ?? Ambulated 150', FWW, SBA, slow steady pace, no LOB ?? Ambulated up/down 6 stairs, 1 rail, within precautions ?? Patient left on EOB, all needs met, nursing made aware Pain: Controlled Education: Pt was educated on post-op sternal precautions, use of incentive spirometer, the importance of deep breathing, and post-op cardiac exercises. Pt's status, treatment, and mobility recommendations were discussed with the nursing staff; reported pt feeling nauseous A: Patient demonstrated increased functional mobility and ability to follow precautions during sit to stand transfers. Patient demonstrated safety and independence with ambulation and transfers. Patient needed Max verbal cueing during bed mobility and required extra time. Patient would benefit fromone more PT visit prior to return home to review precautions and bed mobility. Pt will benefit fromongoing therapeutic interventions to achieve therapy goals. Physical Therapy Goals: To be achieved prior to d/c: 1. Pt will ambulate independently as tolerated without an assistive device to allow for a safe d/c. 2. Pt will perform all post op cardiac surgery exercises adequately. 3. Pt will demonstrate independence with incentive spirometer to promote lung function: 2L goal 4. Pt will demonstrate understanding of sternal precautions to allow for a safe d/c. 5. Pt will be able to transfer sit <-> stand independently while maintaining sternal precautions to allow for a safe d/c. MET 6. Pt will be able to go supine <-> sit independently while maintaining sternal precautions to allow for a safe d/c. 7. Pt will be able to go up and down at least 1 flight of stairs using a rail for balance only independently to prepare for a safe d/c. (Patient has 5 stairs - MET) Discharge Recommendations: Home with support from family P: Pt to be seen 3-5x/wk for patient and family/caregiver education and training on sternal precautions, functional mobility, gait, stairs, exercise, safety awareness, endurance & energy conservation, and d/c planning. Total time spent with patient: 25 minutes Total timed interventions: 25 minutes Pager: [phone] Gayla Devlin Physical Therapy Rehabilitation Department * Karen Rosado MD - 07/27/2015 9:15 AM EST Cardiac Surgery Service Inpatient Progress Note ID: Ginger Amador ( ) is a 79 y.o. female admitted on 07/24/2015 now POD#3 s/p CABGx4 IE: Galvez and wires out Moving around well, ambulating Has not had BM Eating well Physical Exam: afvss I/os reviewed Nad, alert and oriented ctab ant Incision cdi Regular abd benign ble with no edema Labs: Day 3 labs are pending Assessment/plan: Ginger Amador is a 79 y.o. female POD#3 s/p CABGx4, doing well. Pathway Follow up labs Needs to have BM eval by PT tomorrow for rehab vs home (no one lives with her) KAREN ROSADO MD * Karen Rosado MD - 07/26/2015 9:27 AM EST Cardiac Surgery Service Inpatient Progress Note ID: Ginger Amador ( ) is a 79 y.o. female admitted on 07/24/2015 now POD#2 s/p CABGx4 IE: tx-ed to floor Would like tylenol scheduled more frequently, prn, lesser dose Physical Exam: afvss I/os reviewed Nad, alert and oriented ctab ant Incision cdi Regular abd benign ble with 1+ edema Labs: Recent Labs 07/25/15 0420 07/24/15201907/24/15 1447 07/24/15 1406 WBC 11.2* -- 8.1 -- HGB 10.8* 11.1* 7.8* 7.6* HCT 33.2* -- 23.9* 23.2* PLATELET 132* -- 109* 140* Recent Labs 07/26/15 0505 07/25/15 0420 07/24/152019 NA -- 143 -- K 3.8 4.7 3.8 CL -- 107 -- CO2 -- 24 -- BUN -- 11 -- CREATININE -- 0.68* -- Recent Labs 07/24/15 1447 PT 20.6* PTT 37* INR 1.7* Assessment/plan: Ginger Amador is a 79 y.o. female POD#2 s/p CABGx4, doing well. pathway Dc wires Dc galvez Ambulate Day 3 labs/cxr tomorrow KAREN ROSADO MD * Maria Del Carmen Milligan, PT - 07/25/2015 4:02 PM EST PT NOTE PT referral received. Transferred to 4E, POD CT surgery. PT to follow up for evaluation and programover the weekend. Thank you. * Jona Brewster MD - 07/25/2015 9:18 AM EST Cardiac Surgery Service Inpatient Progress Note ID: Ginger Amador ( ) is a 79 y.o. female admitted on 07/24/2015 now POD#1 s/p CABGx4 IE: -extubated -off all drips Subjective: Pain well controlled. Denies CP, SOB, n/v. Vitals: Last value Range last 24 hrs Temperature Temp: 37 ??C (98.6 ??F) Temp: [35.6 ??C (96.1 ??F)-37.2 ??C (99 ??F)] Heart Rate Heart Rate: 67 Heart Rate: [48-82] Cuff BP BP: 170/72 mmHg (right 185/ 75 left) BP: -- Arterial BP BP (Arterial Line): (96-155)/(42-66) CVP CVP: [1 mmHg-324 mmHg] Respiratory Rate Resp: 14 Resp: [0-23] SpO2 SpO2: 99 % SpO2: [98 %-100 %] I/O: reviewed in eD-H Weights: Admit weight 74.21 kg Current Weight Weight - Scale: 78.7 kg (173 lb 8 oz) Physical Exam: General: resting comfortably in no acute distress. Neuro: Awake, alert, responds to questions appropriately, CN II-XII grossly intact, moving all fourextremities spontaneously. CV: RRR, +S1S2, no m/r/g. Pulm: CTAB, normal effort, no respiratory distress. Abd: Soft, non-distended. Skin: warm, dry, Incision: dressing c/d/i Chest tube: no air leak, site dressing c/d/i Labs: Recent Labs 07/25/15 0420 07/24/15201907/24/15 1447 07/24/15 1406 WBC 11.2* -- 8.1 -- HGB 10.8* 11.1* 7.8* 7.6* HCT 33.2* -- 23.9* 23.2* PLATELET 132* -- 109* 140* Recent Labs 07/25/15 0420 07/24/152019 NA 143 -- K 4.7 3.8 CL 107 -- CO2 24 -- BUN 11 -- CREATININE 0.68* -- Recent Labs 07/24/15 1447 PT 20.6* PTT 37* INR 1.7* Assessment: Ginegr Amador is a 79 y.o. female POD#1 s/p CABGx4, HDS, extubated, adequate UOP, progressing appropriately. Plan: Neuro: -APAP, oxycodone CV: -atorvastatin 80' Pulm: -pulmonary hygiene, IS, no active issues. GI: -Diet: Regular diet. -RBOs -Protonix Heme: -ASA 81 Renal: -lasix IV 20'' -potassium PO 20'' ID: -periop abx complete. -afebrile, no active issues. Endo: -no active issues. Lines: -d/c central line -d/c arterial line -d/c mediastinal chest tubes x2 -keep pacing wires -keep galvez Consults: -PT Dispo: -[facility] status, transfer to floor today Code Status: Full Code Jona Brewster MD PGY-2 Pager #[phone] 07/25/2015 * Lesley Stephenson RCP - 07/24/2015 4:19 PM EST Received pt from OR ~1610 placed on SIMV 510x9 PEEP 5 100% ABG 7.41/37/386 1711 Decreased FiO2 to 40% Will continue to monitor. documented in this encounter H&P Notes * Tavon Chan MD - 07/24/2015 9:13 AM EST Pt has seen a dentist and skip miner blasting. Pt ready for surgery. Source Note - Tavon Chan MD - 07/24/2015 9:12 AM EST Mrs. Amador is being referred for consideration of CABG. This was a 60 minute consult, 50 minutes were spent face to face with the patient discussing the risks and benefits of surgery and the options available to her. Mrs. Amador is a 79-year-old female who has been admitted to the hospital with severe hypertension and increasing symptoms of dyspnea on exertion. Mrs. Amador denies any anginal type symptoms or anginal equivalence. She has been having increasing fatigue and dyspnea on exertion, which is relieved with rest. 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 Mrs. Amador is an active woman. 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 She has been having increasing symptoms. Her past medical history is significant for hypertension, hypercholesterolemia, and no diabetes. Her past surgical history is noncontributory for any vein strippings or chest procedures. Her medications and allergies can be found in EMR. She is not a smoker. She does not drink and she is not a Jehovah witness. She still continues to work as listed above. On physical exam, she is her stated age. Her lungs are clear, I hear no murmurs. Her chest has no scars, neither does her abdomen. Her catheterization site looks like it is healing well. I feel no aneurysm or pseudoaneurysm. Her legs do have varicosities; however, her thighs appear satisfactory. She has an echocardiogram that shows a normal EF and no major valvular abnormalities. Her cardiac catheterization shows a good target at the LAD and disease there, same with the diagonal. She has an ostial right with a good right target. 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 It is hard to tell the size of this. On the angio it is small, but it is most likely under filled. Overall Impression: Mrs. Amador has what seems to be stable symptoms. She has severe disease and when presented with the options of stenting versus bypass she has elected to go with bypass surgery. She will most likely get IMAs in two veins. We went over the risks and benefits of surgery, that the risks include, but are not limited to bleeding, infection, organ failure, stroke, , need for pacemaker, and failure of the bypasses. 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 Mrs. Amador is going to leave the hospital, go through preadmission testing, and then come back for her surgery on 07/24/2015. She has been advised that if she has increasing symptoms and/or symptoms of chest pain that she should call the hospital or dial 911. She seems to understand this. Date of surgery was set. * Tavon Chan MD - 07/24/2015 9:12 AM EST Mrs. Amador is being referred for consideration of CABG. This was a 60 minute consult, 50 minutes were spent face to face with the patient discussing the risks and benefits of surgery and the options available to her. Mrs. Amador is a 79-year-old female who has been admitted to the hospital with severe hypertension and increasing symptoms of dyspnea on exertion. Mrs. Amaodr denies any anginal type symptoms or anginal equivalence. She has been having increasing fatigue and dyspnea on exertion, which is relieved with rest. 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 Mrs. Amador is an active woman. 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 She has been having increasing symptoms. Her past medical history is significant for hypertension, hypercholesterolemia, and no diabetes. Her past surgical history is noncontributory for any vein strippings or chest procedures. Her medications and allergies can be found in EMR. She is not a smoker. She does not drink and she is not a Jehovah witness. She still continues to work as listed above. On physical exam, she is her stated age. Her lungs are clear, I hear no murmurs. Her chest has no scars, neither does her abdomen. Her catheterization site looks like it is healing well. I feel no aneurysm or pseudoaneurysm. Her legs do have varicosities; however, her thighs appear satisfactory. She has an echocardiogram that shows a normal EF and no major valvular abnormalities. Her cardiac catheterization shows a good target at the LAD and disease there, same with the diagonal. She has an ostial right with a good right target. 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 It is hard to tell the size of this. On the angio it is small, but it is most likely under filled. Overall Impression: Mrs. Amador has what seems to be stable symptoms. She has severe disease and when presented with the options of stenting versus bypass she has elected to go with bypass surgery. She will most likely get IMAs in two veins. We went over the risks and benefits of surgery, that the risks include, but are not limited to bleeding, infection, organ failure, stroke, , need for pacemaker, and failure of the bypasses. We have gone over her hospital stay as well as her half-way recovery. Mrs. Amador is going to leave the hospital, go through preadmission testing, and then come back for her surgery on 07/24/2015. She has been advised that if she has increasing symptoms and/or symptoms of chest pain that she should call the hospital or dial 911. She seems to understand this. Date of surgery was set. documented in this encounter Nursing Notes * Lula Martin RN - 07/24/2015 2:51 PM EST Defibrillator pads applied to patient prior to induction. Patient's family updated throughout the procedure with permission from the patient. 20ml of Nitroglycerin (200mcg/ml) diluted with 20ml of NSand delivered to the surgical field to be used PRN topically by MD Dustin. documented in this encounter Miscellaneous Notes * Plan of Care - Nancy Jc RN - 07/29/2015 2:48 AM EST Problem: General Plan of Care Goal: Plan of Care Review Outcome: Ongoing (Interventions Implemented as Appropriate) 07/28/15 1856 07/28/151999 Plan of Care Review Plan of Care Outcome Status ongoing (interventions implemented as appropriate) -- Progress progress toward functional goals as expected -- Coping/Psychosocial Response Interventions Plan of Care Reviewed with -- patient OUTCOME EVALUATION NOTE: OUTCOME SUMMARY: Nebs and prn albuterol for SOB. 1L overnight for comfort. Slight fever during 1999 VS, relieved with tylenol. Encouraged IS use both in hospital and after dc. PLAN MOVING FORWARD: DC to rehab in morning INDIVIDUALIZED FALL PREVENTION: Assistance: ind Supervision: Call gómez within reach Surveillance: Tele, purposeful rounding CPG OUTCOME EVALUATION: ongoing Goal: Fall Prevention-Safe Patient Handling Outcome: Ongoing (Interventions Implemented as Appropriate) 07/28/151999 Safety Interventions Safety Precautions/Fall Reduction fall reduction program maintained;environmental modification;lighting adjusted for task/safety;nonskid shoes/slippers when out of bed;room near unit station Caruso Fall Risk History of Falling 0 Secondary Diagnosis 15 Ambulatory Aids 15 Intravenous Therapy/Heparin/Saline Lock 20 Gait/Transferring 0 Mental Status 0 Score 50 Activity and Safety Assistive Device Front wheel walker OTHER Caruso Fall Risk High Musculoskeletal Interventions Activity/Level of Assistance up ad jalen Positioning independent Goal: Infection Control Outcome: Ongoing (Interventions Implemented as Appropriate) 07/28/15 1024 07/28/151999 Coping/Psychosocial Response Interventions Counseling emotional support provided;verbalization of feelings encouraged;understanding of situation facilitated -- Safety Interventions Isolation Precautions -- standard precautions maintained Infection Prevention -- bronchial hygiene promoted;environmental surveillance;hydration promoted;nutrition promoted;promote handwashing;rest/sleep promoted Problem: Cardiac Surgery (Adult) Goal: Signs and symptoms of listed potential problems will be absent or manageable (reference (Cardiac Surgery (Adult)) CPG) Outcome: Ongoing (Interventions Implemented as Appropriate) 07/29/15 0230 Cardiac Surgery Problems Assessed (Cardiac Surgery) all Problems Present (Cardiac Surgery) none * Plan of Care - Barbara Garcia RN - 07/28/2015 6:57 PM EST Problem: Skin Integrity Impairment, Risk/Actual (Adult, Obstetrics) Intervention: Pressure Reduction Devices 07/27/151999 Skin Interventions Pressure Reduction Devices pressure-redistributing mattress utilized Intervention: Pressure Reduction Techniques 07/27/151999 Skin Interventions Pressure Reduction Techniques tubing/devices free from under/on patient Intervention: Wound Healing Promotion 07/27/151999 Skin Interventions Wound Healing Promotion adequate fluids provided;adequate nutrition provided;normothermia maintained;oral hygiene provided;perfusion maximized;sleep/rest promoted Goal: Skin Integrity/Wound Healing Patient will demonstrate the desired outcomes. 07/28/15 0254 Skin Integrity Impairment, Risk/Actual (Adult, Obstetrics) Skin Integrity/Wound Healing making progress toward outcome Problem: General Plan of Care Goal: Plan of Care Review 07/28/151855 Plan of Care Review Plan of Care Outcome Status ongoing (interventions implemented as appropriate) Progress progress toward functional goals as expected Coping/Psychosocial Response Interventions Plan of Care Reviewed with patient Goal: Fall Prevention-Safe Patient Handling 07/28/15 1024 Safety Interventions Safety Precautions/Fall Reduction fall reduction program maintained;low bed;mobility aid;nonskid shoes/slippers when out of bed;supervised activity Caruso Fall Risk History of Falling 0 Secondary Diagnosis 15 Ambulatory Aids 15 Intravenous Therapy/Heparin/Saline Lock 20 Gait/Transferring 0 Mental Status 0 Score 50 Activity and Safety Assistive Device Front wheel walker OTHER Caruso Fall Risk High Musculoskeletal Interventions Activity/Level of Assistance up ad jalen Positioning independent Goal: Infection Control 07/28/15 1024 07/28/151855 Coping/Psychosocial Response Interventions Counseling emotional support provided;verbalization of feelings encouraged;understanding of situation facilitated -- Safety Interventions Isolation Precautions -- standard precautions maintained Infection Prevention rest/sleep promoted;bronchial hygiene promoted;environmental surveillance;hydration promoted;nutrition promoted;promote handwashing -- Comments: OUTCOME EVALUATION NOTE: OUTCOME SUMMARY: Pt a&ox4, VSS. On tele pt in NSR 70-80. Pt complains of SOB. Nebs and albuterol inhaler given with positive results. Worked with PT today, following activity pt only complained of increasing SOB.LS dim. 90-95 on RA. 95 on 1L. MSI VICTOR MANUEL, CDI. Graph site on R leg VICTOR AMNUEL, CTI, slight redness. 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 The patient agrees to a referral to this program. She will initially go to SNF at [facility] The referral will be sent at discharge and the patient should be contacted by the Program within 2-4 weeks from discharge. * Plan of Care - China Mandujano RN - 07/28/2015 3:03 AM EST Problem: Skin Integrity Impairment, Risk/Actual (Adult, Obstetrics) Goal: Skin Integrity/Wound Healing Patient will demonstrate the desired outcomes. 07/28/154 Skin Integrity Impairment, Risk/Actual (Adult, Obstetrics) Skin Integrity/Wound Healing making progress toward outcome Problem: General Plan of Care Goal: Plan of Care Review 07/27/15162507/27/151999 Plan of Care Review Plan of Care Outcome Status ongoing (interventions implemented as appropriate) -- Progress improving -- Coping/Psychosocial Response Interventions Plan of Care Reviewed with -- patient OUTCOME EVALUATION NOTE: OUTCOME SUMMARY: 20:00 applied 1L NC for sat of 90%, on oxygen sat of 93-95%. Tmax 38.4, tylenol given, MD Janell day, UA sent. SOB noted with activity intermittently. LS clear. Pain effectively managed with PRN tylenol. Otherwise uneventful overnight. PLAN MOVING FORWARD: INDIVIDUALIZED FALL PREVENTION: Assistance: Independent Supervision: Rings appropriately Surveillance: Tele, purposeful rounding. CPG OUTCOME EVALUATION: Goal: Fall Prevention-Safe Patient Handling 07/27/15199907/27/152199 Caruso Fall Risk History of Falling 0 -- Secondary Diagnosis 15 -- Ambulatory Aids 0 -- Intravenous Therapy/Heparin/Saline Lock 20 -- Gait/Transferring 0 -- Mental Status 0 -- Score 35 -- Activity and Safety Assistive Device -- Oxygen OTHER Caruso Fall Risk Med -- Safety Interventions Safety Precautions/Fall Reduction -- lighting adjusted for task/safety;low bed;nonskid shoes/slippers when out of bed;room near unit station Musculoskeletal Interventions Activity/Level of Assistance -- up ad jalen;independently Positioning -- independent Goal: Infection Control 12/13/15 2000 12/13/15 2200 Coping/Psychosocial Response Interventions Counseling understanding of situation facilitated;verbalization of feelings encouraged -- Safety Interventions Isolation Precautions -- standard precautions maintained Infection Prevention rest/sleep promoted;promote handwashing;nutrition promoted;hydration promoted;environmental surveillance;bronchial hygiene promoted -- Goal: Discharge Needs Assessment 07/27/15 1626 07/28/15 0254 Self-Care Equipment Currently Used at Home none -- Discharge Needs Assessment Concerns to be Addressed no discharge needs identified -- Readmission Within the Last 30 Days no previous admission in last 30 days -- Equipment Needed After Discharge none -- Living Environment Transportation Available family or friend will provide -- Current Health Anticipated Changes Related to Illness -- none * Plan of Care - Shwetha Ferguson RN - 07/27/2015 4:26 PM EST Problem: General Plan of Care Goal: Plan of Care Review Outcome: Ongoing (Interventions Implemented as Appropriate) 07/27/15 1626 Plan of Care Review Plan of Care Outcome Status ongoing (interventions implemented as appropriate) Progress improving Coping/Psychosocial Response Interventions Plan of Care Reviewed with patient Goal: Discharge Needs Assessment Outcome: Ongoing (Interventions Implemented as Appropriate) 07/27/15 1626 Self-Care Equipment Currently Used at Home none Discharge Needs Assessment Concerns to be Addressed no discharge needs identified Readmission Within the Last 30 Days no previous admission in last 30 days Equipment Needed After Discharge none Living Environment Transportation Available family or friend will provide Comments: OUTCOME EVALUATION NOTE: OUTCOME SUMMARY: Patient resting on and off throughout shift. VSS on RA. Worked this AM with PT, cleared to ambulateindependently within room and out of room with walker. Ambulated 160ft independently. Showered thisafternoon with setup. Diuresing well, net I/O -730 over shift. BM this AM, refusing further bowel medications. Complaints of some mid sternal incisional pain, relieved with prn tylenol. Mid sternal incision c/d/i no drainage. On tele SR/ST Hr 70-105 PLAN MOVING FORWARD: Continue to monitor, progress on surgical pathway. INDIVIDUALIZED FALL PREVENTION: Assistance: Independent Supervision: Intermittent, call gómez within reach Surveillance: Telemetry, purposeful rounding CPG OUTCOME EVALUATION: ongoing * Plan of Care - Cece Felix RN - 07/27/2015 6:26 AM EST Problem: Skin Integrity Impairment, Risk/Actual (Adult, Obstetrics) Intervention: Pressure Reduction Devices 07/26/151999 Skin Interventions Pressure Reduction Devices pressure-redistributing mattress utilized Intervention: Pressure Reduction Techniques 07/26/151999 Skin Interventions Pressure Reduction Techniques heels elevated off bed;tubing/devices free from under/on patient Intervention: Wound Healing Promotion 07/26/15 0637 Skin Interventions Wound Healing Promotion adequate fluids provided;sleep/rest promoted Problem: General Plan of Care Goal: Plan of Care Review 07/26/15 1749 07/26/151999 Plan of Care Review Plan of Care Outcome Status ongoing (interventions implemented as appropriate) -- Progress improving -- Coping/Psychosocial Response Interventions Plan of Care Reviewed with -- patient Goal: Fall Prevention-Safe Patient Handling 07/26/151999 Caruso Fall Risk History of Falling 0 Secondary Diagnosis 15 Ambulatory Aids 15 Intravenous Therapy/Heparin/Saline Lock 20 Gait/Transferring 10 Mental Status 0 Score 60 Activity and Safety Assistive Device Front wheel walker OTHER Caruso Fall Risk High Safety Interventions Safety Precautions/Fall Reduction assistive device;environmental modification;fall reduction program maintained;lighting adjusted for task/safety;low bed;nonskid shoes/slippers when out of bed;supervised activity Musculoskeletal Interventions Activity/Level of Assistance up in room;with walker;with stand by assist Positioning independent Goal: Infection Control 07/26/151999 Coping/Psychosocial Response Interventions Counseling calming techniques promoted;emotional support provided;verbalization of feelings encouraged;understanding of situation facilitated;personal strengths integrated;goal setting facilitated Safety Interventions Isolation Precautions standard precautions maintained Infection Prevention bronchial hygiene promoted;environmental surveillance;hydration promoted;nutrition promoted;promote handwashing;rest/sleep promoted Goal: Discharge Needs Assessment OUTCOME EVALUATION NOTE: OUTCOME SUMMARY: VSS. Pt's mid sternal pain managed with tylenol and oxy. Pt woke up once during the night-complaints of sounding wheezy. Sat was obtained 97% on [place] NC. Lungs clear but dim. Positioned was adjusted, Pt read in bed for awhile before going back to sleep. Slept most of the night. SR ontele. Rates 65- 98. No events. PLAN MOVING FORWARD: Continue pathway, promote BM, encourage ambulation, pain control. INDIVIDUALIZED FALL PREVENTION: Assistance: 1 assist with walker Supervision: Intermittent, call gómez in reach, Surveillance: rounds, tele, bed alarm CPG GOAL OUTCOME EVALUATION: Ongoing * Plan of Care - Shwetha Ferguson RN - 07/26/2015 5:49 PM EST Problem: General Plan of Care Goal: Plan of Care Review Outcome: Ongoing (Interventions Implemented as Appropriate) 07/26/15 1749 Plan of Care Review Plan of Care Outcome Status ongoing (interventions implemented as appropriate) Progress improving Coping/Psychosocial Response Interventions Plan of Care Reviewed with patient Comments: OUTCOME EVALUATION NOTE: OUTCOME SUMMARY: VSS on RA. At 1211 vitals O2 sat 90% on RA, placed on 1Lvia NC with O2 sat of 95%. Ambulated [id number] and [id number] ( once with PT) this shift with SOB and fatigue but no significant change in vitals. Mild mid sternal incision pain, resolved with prn tylenol. Wires pulled by provider today. Resting onand off throughout shift. Net I/O equal over shift. Appetite good today, no BM, Milk of mag administered this AM, ambulation and hydration promoted. On tele in SR HR 60-100 no events. PLAN MOVING FORWARD: Surgical pathway, progress ambulation, continue to monitor and treat pain, promote BM INDIVIDUALIZED FALL PREVENTION: Assistance: 1w/walker Supervision: Intermittent, call gómez within reach Surveillance: Telemetry, purposeful rounding CPG OUTCOME EVALUATION: ongoing * Initial Assessments - Berhane Workman, PT - 07/26/2015 3:42 PM EST [facility] Physical Therapy Initial Evaluation Cardiac Surgery Patient Profile: patient is a 79 y.o. female of [place] M[place], admitted on 07/24/2015 withh/o decreased activity tolerance, SOB and angina. 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 Post-op course stable.. Precautions: sternal (no lifting >7-10 lbs.; no pushing or pulling with UE's; no excessive cheststretching). 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 Stairs: to enter; lives on 1 floor Baseline Mobility: diminished activity tolerance over several months Equipment at home: none Subjective: con't tell if CABG made difference in symptoms Objective: pt seen for initial evaluation and Rx on POD#2 Pain: controlled Vital Signs/Cardiopulmonary Status: SpO2: >92% on RA at rest with improvement post activity HR: 80s-90s regular rhythm BP: 150s/50s pre/post activity Incentive Spirometer: Volume: 1L ml Quality: good Strong dry cough Mental Status/Behavior: normal and cooperative; may not retain information (given written information) Skin: intact; old TKA scars; R thigh SVG donor site Sensation: no report of sensory impairment ROM: no difficulty with arm and leg ROM exercises Strength: no obvious focal weakness Bed Mobility: Supine to Sit: n/t Sit to Supine: minimal L/E assist and verbal cues Pt needed cues to maintain sternal precautions. Transfers: Sit to Stand: minimal lift assist; on/off toilet independently Stand to Sit: independent; no use of arms Pt needed cues to maintain sternal precautions. Gait: Distance: 170ft non-stop pushing front wheel walker on RA Device used: rolling walker Level of assist: supervision Gait pattern: slow stable pace with walker; able to walk without walker out of BR Balance: sit/stand stable; prefers to use walker for out of room ambulation at this time Informed Consent: the patient agrees to and understands the PT treatment plan and goals. Education: Pt was educated on post-op sternal precautions, use of incentive spirometer, the importance of deep breathing, and post-op cardiac exercises. Pt performed 3-5 reps of the following exercises today: head nod, head twist, shoulder flexion, knee extension, ankle circles, and ankle pumps. Pt was given a written list of exercises and precautions. Pt's status, treatment, and mobility recommendations were discussed with the nursing staff; reported pt feeling nauseous Assessment: Pt is s/p CABGx4 with uncomplicated post op course. Functional mobility is limited by sternal precautions and need for walker when ambulating. Pt would benefit from continued physical therapy to maximize functional mobility, independence and safety. Pt has good rehab potential. Expect gradual improvement in function with transition to home or rehab as per pt wishes; will benefit from local cardiac rehab as pt certain that she is deconditioned. Equipment needs: probably none at d/c Goals: To be achieved prior to d/c: 1. Pt will ambulate independently as tolerated without an assistive device to allow for a safe d/c. 2. Pt will perform all post op cardiac surgery exercises adequately. 3. Pt will demonstrate independence with incentive spirometer to promote lung function: 2L goal 4. Pt will demonstrate understanding of sternal precautions to allow for a safe d/c. 5. Pt will be able to transfer sit <-> stand independently while maintaining sternal precautions to allow for a safe d/c. 6. Pt will be able to go supine <-> sit independently while maintaining sternal precautions to allow for a safe d/c. 7. Pt will be able to go up and down at least 1 flight of stairs using a rail for balance only independently to prepare for a safe d/c. Treatment Plan: Pt to be seen 3-5x/wk for patient and family/caregiver education and training on sternal precautions, functional mobility, gait, stairs, exercise, safety awareness, endurance & energy conservation, and d/c planning. Pt will be seen by PT 07/27/2015 to continue post op PT Tentative D/C Plan: pt unclear whether she would be able to transition to home with family and community assistance Pt understands and agrees with PT plan, goals, and tentative discharge plan: Yes Total time spent with patient: 55 minutes Total timed interventions: 0 minutes (initial eval) BERHANE WORKMAN, PT Pager: [phone] Physical Therapy Rehabilitation Department * Plan of Care - Cece Felix RN - 07/26/2015 6:42 AM EST Problem: Skin Integrity Impairment, Risk/Actual (Adult, Obstetrics) Intervention: Pressure Reduction Devices 07/25/151999 Skin Interventions Pressure Reduction Devices pressure-redistributing mattress utilized Intervention: Pressure Reduction Techniques 07/25/151999 Skin Interventions Pressure Reduction Techniques turned/repositioned;tubing/devices free from under/on patient;heels elevated off bed Intervention: Wound Healing Promotion 07/26/15 0637 Skin Interventions Wound Healing Promotion adequate fluids provided;sleep/rest promoted Problem: General Plan of Care Goal: Plan of Care Review 07/25/15194807/25/151999 Plan of Care Review Plan of Care Outcome Status ongoing (interventions implemented as appropriate) -- Progress improving -- Coping/Psychosocial Response Interventions Plan of Care Reviewed with -- patient OUTCOME EVALUATION NOTE: OUTCOME SUMMARY: Pt and vitals stable throughout shift. Pain managed with tylenol and oxy. No complaints of SOB. Pt's HR was down into the 40s nonsustained during the night- vitals were obtained- O2 was found to be 88%on RA-- pt put on 1.5L NC- sating mid 90s. Pt SR on tele rates 45-76. Rare pacs. Pt slept throughout the night, PLAN MOVING FORWARD: Continue cardiac pathway, encourage ambulation and use of IS INDIVIDUALIZED FALL PREVENTION: Assistance: 1 assist with walker Supervision: Intermittent, call gómez in reach, Surveillance: rounds, tele. Bed alarm. CPG GOAL OUTCOME EVALUATION: Ongoing Goal: Fall Prevention-Safe Patient Handling 07/25/15199907/26/15 0503 Caruso Fall Risk History of Falling 0 -- Secondary Diagnosis 15 -- Ambulatory Aids 15 -- Intravenous Therapy/Heparin/Saline Lock 20 -- Gait/Transferring 0 -- Mental Status 0 -- Score 50 -- Activity and Safety Assistive Device -- Front wheel walker OTHER Caruso Fall Risk High -- Safety Interventions Safety Precautions/Fall Reduction bed alarm;environmental modification;fall reduction program maintained;lighting adjusted for task/safety;low bed;nonskid shoes/slippers when out of bed;supervised activity -- Musculoskeletal Interventions Activity/Level of Assistance -- up in harris;with walker;with 1-person assist Positioning -- up in chair Goal: Infection Control 07/25/151999 Coping/Psychosocial Response Interventions Counseling verbalization of feelings encouraged;understanding of situation facilitated;emotional support provided Safety Interventions Isolation Precautions standard precautions maintained Infection Prevention bronchial hygiene promoted;environmental surveillance;hydration promoted;nutrition promoted;promote handwashing;rest/sleep promoted * Plan of Care - Shwetha Ferguson RN - 07/25/2015 7:49 PM EST Problem: General Plan of Care Goal: Plan of Care Review Outcome: Ongoing (Interventions Implemented as Appropriate) 07/25/151948 Plan of Care Review Plan of Care Outcome Status ongoing (interventions implemented as appropriate) Progress improving Coping/Psychosocial Response Interventions Plan of Care Reviewed with patient Comments: OUTCOME EVALUATION NOTE: OUTCOME SUMMARY: 1400: Patient transferred from [facility], report received from Nimisha. VSS on RA. Oriented to room and call gómez system. Moderate drainage from chest tube site, Candida HIGH REACH OPERATOR notified, dressing changed. On tele in SR HR 60-75 VSS on RA. Complaints of 3/10 mid sternal incision pain, relief achieved with tylenol and prn oxycodone. No complaints of SOB or further discomfort throughout shift. Pt reports feeling very fatigued after the transfer and took a nap in the afternoon. Mid sternal incision c/d/i some redness, team aware, no drainage. PLAN MOVING FORWARD: Progress ambulation, increase diet as tolerated, promote BM, I/S and breathing exercises INDIVIDUALIZED FALL PREVENTION: Assistance: 1 w/walker Supervision: Intermittent, call gómez within reach Surveillance: *Telemetry, purposeful rounding CPG OUTCOME EVALUATION: * Op Note - Tavon Chan MD - 07/24/2015 5:09 PM EST 07/24/2015 Ginger Monacolionel 1935 [id number] Preoperative Diagnosis: Coronary artery disease Unstable Angina Postoperative Diagnosis: Coronary artery diseaseUnstable Angina Procedure: CABG times 4: DAUGHERTY to LAD, SVG to om, svg to diag, jerardo to rca. Endoscopic vein harvest Surgeon: Tavon Chan M.D. Gun Stocker: Sal GUARDADO Anesthesia: General endotracheal anesthesia Drains: Two mediastinal tubes Pacing Wires: Two A-wires, two V-wires. EBL: 300 mL Findings: om small target, excellent conduits, nl function Procedure: The patient was taken to the Operating Room and had a radial A-line placed. All the proper lines and monitors were placed by Anesthesia. The patient was then prepped and draped in the normal sterile fashion. The left leg was used to harvest the greater saphenous vein using an endoscopic technique. A vertical incision was made on the medial aspect of the knee. The [employer] XB7 system was used to dissect out the vein anterior and posteriorly. All the side branches were cauterized. The vein was ligated distally and proximally. It was removed through the incision at the knee. The vein was flushed with heparinized saline in a reverse direction. All the side branches were clipped. The vein was untwisted and striped with a sterile pen. The leg had a WILLIAM drain placed in it. It was irrigated out with antibiotic solution and closed immediately. The chest was opened along the midline. Cautery was used on the sternal edges and bone wax was lightly applied to the divided marrow of the sternum. The left roxanne-sternum was elevated. The pleura were taken down, and the mammary artery was dissected free clipping all side branches. Heparin was given. Several minutes later the distal end of the mammary was clipped and tied on the chest wall, and the bleeding end had a bulldog placed across it. It was prepared for bypass by spatulating it open, injecting it with verapamil, and rolling it up into a nitroglycerin-soaked sponge. The GAMA had excellent flow. The Rultract was removed. The same procedure was donefor the Right internal mammary. Two antibiotic-soaked towels were used to bumper the sternum. The sternal retractor was used to open the sternum. The overlying pericardium was opened in an inverse-T fashion and hung to the edge of the sternal retractor. Full-dose heparin was given. The aorta was cannulated. The right atrium had the venous cannula placed through the IVC. A retrograde was placed through the right atrium into the coronary sinus. The antegrade was place mid ascending aorta which also doubled as the root vent. With the ACT above 450, we went on bypass. The targets were inspected. The aorta was crossclamped and the heart was arrested with cold blood cardioplegia antegrade and retrograde. We drifted to 32 degrees Celsius. The bypasses were as follows: The om target was identified and opened and in an end to side fashion the SVG was anastomosed with a running 7.0 prolene. Cardiopelegia was given down the graft and there were no leaks. The heart wasfilled and the graft was measured for length and trimmed. A punch was made in the aorta and a proximal anastomosis was created with a 6-0. A washer was used to identify the proximal. The same procedures was completed for diag and cardioplegia was given between all bypasses. The gama was taken out of the left chest and a slit was created in the L side of the pericardium making sure to identify the L phrenic nerve. The gama was anastomosed to the LAD with a running 8-0 prolene. The bulldog was removed to test the graft then replaced. The gama was taken out of the right chest and a slit was created in the R side of the pericardium making sure to identify the R phrenic nerve. The gama was anastomosed to the RCA with a running 8-0 prolene. The bulldog was removed to test the graft then replaced. At this point, hotshots were given. The heart began beating in a sinus rhythm. The crossclamp was removed. The grafts were inspected. The heart was allowed to re-perfuse. The retrograde was removed and oversewn; so was the antegrade. An angled chest tube was placed behind the heart. Both chests were suctioned out, and the lungs were re-inflated. After a period of rewarming and allowing the heart to re-perfuse, we from bypass. The venous cannula was removed and the pursestring was tieddown and oversewn. Protamine was given. The aortic cannula was removed. Both pursestrings were tieddown and oversewn. We had no further bleeding. A straight chest tube was placed in front of the heart. Vanco paste was applied to the sternum. Interrupted steel cables were used to close the chest, several layers of Vicryl, and a 4-0 Monocryl were used to close the overlying soft tissue. Glue and clean dry sterile dressings were applied. The patient was transported to the [facility] on levo. All counts were correct. documented in this encounter Plan of Treatment Scheduled Orders Name Type Priority Associated Diagnoses Orde r Schedule EKG 12 Lead ECG Routine S/P CABG x 4 Ordered: 07/28/2015 Scheduled Referrals Name Type Priority Associated Diagnoses Orde r Schedule Referral to Cardiac Rehab Outpatient Referral Routine S/P CABG x 4 Ordered: 07/29/2015 documented as of this encounter Procedures Procedure Name Priority Date/Time Associated Diagnosis Comments LAB SCAN 07/30/2015 12:00 AM EST LAY OUT WORKER SCAN 07/30/2015 12:00 AM EST LAY OUT WORKER SCAN 07/30/2015 12:00 AM EST POTASSIUM Routine 07/29/2015 4:27 AM EST POTASSIUM Routine 07/28/2015 6:41 AM EST URINALYSIS WITH REFLEX CULTURE Routine 07/27/2015 9:29 PM EST HEMOGRAM Routine 07/27/2015 10:11 AM EST DIFFERENTIAL, AUTOMATED Routine 07/27/2015 10:11 AM EST CBC (WITH DIFF) Routine 07/27/2015 10:11 AM EST BASIC METABOLIC PANEL Routine 07/27/2015 10:11 AM EST XR CHEST PA AND LATERAL Timed 07/27/2015 8:18 AM EST POTASSIUM Routine 07/26/2015 5:05 AM EST POCT GLUCOSE Routine 07/25/2015 8:16 AM EST POCT GLUCOSE Routine 07/25/2015 6:19 AM EST HEMOGRAM Routine 07/25/2015 4:20 AM EST DIFFERENTIAL, AUTOMATED Routine 07/25/2015 4:20 AM EST CARDIAC ENZYMES (MC/CGP) Routine 07/25/2015 4:20 AM EST CREATININE Routine 07/25/2015 4:20 AM EST CBC (WITH DIFF) Routine 07/25/2015 4:20 AM EST BUN Routine 07/25/2015 4:20 AM EST GLUCOSE, FASTING Routine 07/25/2015 4:20 AM EST ELECTROLYTES PANEL Routine 07/25/2015 4: 20 AM EST POCT GLUCOSE Routine 07/25/2015 4:19 AM EST POCT GLUCOSE Routine 07/25/2015 3:11 AM EST POCT GLUCOSE Routine 07/25/2015 1:23 AM EST POCT GLUCOSE Routine 07/24/2015 11:07 PM EST POCT GLUCOSE Routine 07/24/2015 9:58 PM EST EXTUBATE Routine 07/24/2015 9:49 PM EST BLOOD GAS ARTERIAL POC Routine 07/24/2015 9:39 PM EST POCT GLUCOSE Routine 07/24/2015 8:58 PM EST HEMOGLOBIN Routine 07/24/2015 8:20 PM EST POTASSIUM Routine 07/24/2015 8:20 PM EST POCT GLUCOSE Routine 07/24/2015 6:45 PM EST BLOOD GAS ARTERIAL POC Routine 07/24/2015 5:05 PM EST XR CHEST ONE VIEW STAT 07/24/2015 4:4 5 PM EST EKG 12-LEAD STAT 07/24/2015 4:25 PM EST S/P CABG x 4 MECHANICAL VENTILATION Routine 07/24/2015 4:09 PM EST CARDIAC SURGERY VENT WEANING - PROTOCOL Routine 07/24/2015 4:09 PM EST PREPARE PLATELETS, APHERESIS STAT 07/24/2015 3:00 PM EST BLOOD GAS ARTERIAL POC Routine 07/24/2015 2:47 PM EST HEMOGRAM STAT 07/24/2015 2:47 PM EST APTT STAT 07/24/2015 2:47 PM EST PROTHROMBIN TIME STAT 07/24/2015 2:47 PM EST FIBRINOGEN STAT 07/24/2015 2:47 PM EST FIBRINOGEN STAT 07/24/2015 2:06 PM EST PLATELET COUNT STAT 07/24/2015 2:06 PM EST HEMOGLOBIN STAT 07/24/2015 2:06 PM EST HEMATOCRIT STAT 07/24/2015 2:06 PM EST BLOOD GAS ARTERIAL POC Routine 07/24/2015 2:03 PM EST BLOOD GAS ARTERIAL POC Routine 07/24/2015 1:25 PM EST BLOOD GAS ARTERIAL POC Routine 07/24/2015 1:00 PM EST BLOOD GAS ARTERIAL POC Routine 07/24/2015 11:33 AM EST @CABG, TWO VENOUS GRAFTS & ARTERIAL GRAFT (WRVU 7.93) 07/24/2015 10:42 AM EST Coronary artery 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 ENDOSCOPIC HARVEST VEIN(S) FOR CABG (WRVU 0.31) 07/24/2015 10:42 AM EST Coronary artery 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 @CABG, USING 2 CORONARY ARTERIAL GRAFTS (WRVU 39.88) 07/24/2015 10:42 AM EST Coronary artery 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 PREPARE RBC STAT 07/24/2015 10:05 AM EST POCT GLUCOSE Routine 07/24/2015 9:16 AM EST documented in this encounter Results * SCAN DOC: LAB (07/30/2015 12:00 AM EST) Scanning Provider MEDIA MGR SCAN EXT O RDR/RSLT * SCAN DOC: LAY OUT WORKER (07/30/2015 12:00 AM EST) Anatomical Region Laterality Modality Other Scanning Provider MEDIA MGR SCAN EXT O RDR/RSLT * SCAN DOC: LAY OUT WORKER (07/30/2015 12:00 AM EST) Anatomical Region Laterality Modality Other Scanning Provider MEDIA MGR SCAN EXT O RDR/RSLT * Potassium (07/29/2015 4:27 AM EST) Potassium 4.0 3.5 - 5.0 mmol/L [facility] Comment: Please note: ??Patients with WBC >100,000 may have falsely elevated Potassium levels. ??For accurate Potassium quantification in these patients send serum separator tube (gold top) for subsequent determinations. ??Contact the Clinical Chemistry Laboratory if there are any questions. Blood specimen (specimen) 07/29/2015 4:27 AM EST 07/29/2015 4:41 AM EST Narrative Resulting Agency Comment Spec In Lab Tavon Chan MD CHEMISTRY ORDERABLE S Performing Organization Address [facility] de Phone Number [facility] * Potassium (07/28/2015 6:41 AM EST) Potassium 3.7 3.5 - 5.0 mmol/L [facility] Comment: Please note: ??Patients with WBC >100,000 may have falsely elevated Potassium levels. ??For accurate Potassium quantification in these patients send serum separator tube (gold top) for subsequent determinations. ??Contact the Clinical Chemistry Laboratory if there are any questions. Blood specimen (specimen) 07/28/2015 6:41 AM EST 07/28/2015 6:56 AM EST Narrative Resulting Agency Comment Spec In Lab Tavon Chan MD CHEMISTRY ORDERABLE S Performing Organization Address City/[facility] Co de Phone Number apprupt * Urinalysis with reflex Culture (07/27/2015 9:29 PM EST) Glucose, Urine Dipstick Negative Negative mg/dL CERNER MILLENNIUM Protein, Urine Dipstick Negative Negative mg/dL CERNER MILLENNIUM Bilirubin, Urine Dipstick Negative Negative mg/dL CERNER MILLENNIUM Comment: Clinical correlation required for positive Urine Bilirubin results as false positive may occur with some drugs and drug related products. If a false positive is suspected a serum total bilirubin should be considered if clinically indicated. Urobilinogen, Urine Dipstick Normal Normal mg/dL CERNER MILLENNIUM pH, Urn (dipstick) 5.0 5.0 - 8.0 CERNER MILLENNIUM Blood, Urine Dipstick Negative Negative mg/dL CERNER MILLENNIUM Ketone, Urine Dipstick Negative Negative mg/dL CERNER MILLENNIUM Nitrite, Urine Dipstick Negative Negative CERNER MILLENNIUM Leukocytes, Urine Dipstick Negative Negative mcL CERNER MILLENNIUM Appearance, Urine Dipstick Clear Clear CERNER MILLENNIUM Specific [place] Urine Automated 1.019 1.002 - 1.030 CERNER MILLENNIUM Color, Urine Dipstick Yellow Yellow CERNER MILLENNIUM RBC, Urine 1 0 - 4 /HPF CERNER MILLENNIUM WBC, Urine 5 0 - 5 /HPF CERNER MILLENNIUM Squamous Epithelial Cells, Urine 3 <=4 /HPF CERNER MILLENNIUM Hyaline Casts, Urine 1 0 - 2 /LPF CERNER MILLENNIUM Reflex to Culture No CERNER MILLENNIUM Urine specimen obtained by clean catch procedure (specimen) 07/27/2015 9:29 PM EST 07/27/2015 10:04 PM EST Narrative Resulting Agency Comment Spec In Lab Karen Rosado MD URINE ORDERABLES CERNER MILLENNIUM * (ABNORMAL) Differential, Automated (07/27/2015 10:11 AM EST) Neutrophil % 78.9 % CERNER MILLENNIUM Neutrophil Absolute 8.76(H) 1.50 - 6.30 x10(3)/mc L CERNER MILLENNIUM Lymph % 13.9 % CERNER MILLENNIUM Lymphocytes Abs 1.5 1.0 - 3.6 x10(3)/mc L CERNER MILLENNIUM Monocyte % 4.8 % CERNER MILLENNIUM Monocyte Abs 0.5 0.2 - 1.0 x10(3)/mc L CERNER MILLENNIUM Eos % 2.0 % CERNER MILLENNIUM Eosinophils Abs 0.2 0.0 - 0.5 x10(3)/mc L CERNER MILLENNIUM Basophil % 0.1 % CERNER MILLENNIUM Baso Absolute 0.0 0.0 - 0.2 x10(3)/mc L CERNER MILLENNIUM Immature Gran % 0.30 % CERN ER MILLENNIUM Comment: Immature granulocytes(IG's)percentage and absolute count will include metamyelocytes, myelocytes, and promyelocytes. Blood smears from CBCs yielding IG's will be scanned manually for concordance. If this scan disagrees with the automated IG or if promyelocytes are noted, a manual differential will be performed. Immature Gran Absolute 0.03 0.00 - 0.05 x10(3)/mc L CERNER MILLENNIUM Blood specimen (specimen) 07/27/2015 10:11 AM EST 07/27/2015 10:36 AM EST Narrative Resulting Agency Comment Spec In Lab Tavon Chan MD HEMATOLOGY ORDERABL ES CERNER MILLENNIUM * (ABNORMAL) Hemogram (07/27/2015 10:11 AM EST) White Blood Cell 11.1(H) 4.0 - 10.0 x10(3)/mc L CERNER MILLENNIUM Red Blood Cell 3.94 3.93 - 5.22 x10(6)/mc L CERNER MILLENNIUM Hemoglobin 10.4(L) 11.2 - 15.7 gm/dL CERNER MILLENNIUM Hematocrit 32.6(L) 34.0 - 45.0 % CERNER MILLENNIUM Mean Cell Volume 82.7 79.0 - 94.0 fL CERNER MILLENNIUM Mean Cell Hemoglobin 26.4(L) 26.6 - 32.2 pg CERNER MILLENNIUM Mean Cell Hemoglobin Concentration 31.9(L) 32.0 - 36.5 gm/dL CERNER MILLENNIUM Platelet 128(L) 145 - 370 x10(3)/mc L CERNER MILLENNIUM RDW Standard Deviation 47.0(H) 35.0 - 46.0 fL CERNER MILLENNIUM RDW coefficient of variation 15.5(H) 10.9 - 14.4 % CERNER MILLENNIUM Mean Platelet Volume 10.4 9.0 - 12.0 fL CERNER MILLENNIUM Blood specimen (specimen) 07/27/2015 10:11 AM EST 07/27/2015 10:36 AM EST Narrative Resulting Agency Comment Spec In Lab Tavon Chan MD HEMATOLOGY ORDERABL ES CERNER MILLENNIUM * (ABNORMAL) Basic Metabolic Panel (non-fasting) (07/27/2015 10:11 AM EST) Glucose 170 65 - 199 mg/dL CERNER MILLENNIUM Comment:Diabetes: >=200 mg/d L plus symptoms Blood Urea Nitrogen 13 8 - 18 mg/dL CERNER MILLENNIUM Creatinine 0.77 0.70 - 1.20 mg/dL CERNER MILLENNIUM Comment: Please note that the pediatric reference intervals supplied above were not validated at [facility]. Results from pediatric patients should be interpreted in conjunction to the patient's age, height and muscle mass. Sodium 137 135 - 145 mmol/L CERNER MILLENNIUM Potassium 3.7 3.5 - 5.0 mmol/L CERNER MILLENNIUM Comment: Please note: ??Patients with WBC >100,000 may have falsely elevated Potassium levels. ??For accurate Potassium quantification in these patients send serum separator tube (gold top) for subsequent determinations. ??Contact the Clinical Chemistry Laboratory if there are any questions. Chloride 98 98 - 107 mmol/L CERNER MILLENNIUM Carbon Dioxide 26 22 - 31 mmol/L CERNER MILLENNIUM Anion Gap 13 5 - 15 mmol/L CERNER MILLENNIUM Calcium 8.4(L) 8.5 - 10.5 mg/dL CERNER MILLENNIUM Est Glomerular Filtration Rate >60 >=60 CERNER MILLENNIUM Comment: This estimated GFR (eGFR) value was calculated using the MDRD equation which has been validated on patients between the ages of 18 and 70. The MDRD should not be used to assess kidney function in patients < 18 years of age or in patients with extremes of body mass, or in patients with acute kidney failure. This value should be multiplied by 1.2 for patients. For further information please copy and paste the following links into your internet browser. http://TextbookTime.com Textbook Time/DHnkdep http://TextbookTime.com Textbook Time/DHMCnkf Blood specimen (specimen) 07/27/2015 10:11 AM EST 07/27/2015 10:36 AM EST Narrative Resulting Agency Comment Spec In Lab Tavon Chan MD CHEMISTRY ORDERABLE S CARISSA DAVILAParsimotion * XR Chest Routine PA & Lateral (07/27/2015 8:18 AM EST) Anatomical Region Laterality Modality Chest N/A Digital Radiogra phy Impressions 07/27/2015 8:31 AM EST IMPRESSION: 1. ??Mild hypoinflation. 2. ??Small bilateral pleural effusions, left greater than right. Retrocardiac atelectasis. Narrative 07/27/2015 8:31 AM EST EXAMINATION: XR CHEST ROUTINE PA AND LATERAL CLINICAL HISTORY: s/p CABG POD 3 TECHNIQUE: PA and lateral views COMPARISON: 07/24/2015, 07/02/2015 FINDINGS: Interval removal of mediastinal drainage tubes, PA catheter and endotracheal tube. Lungs are mildly hypoinflated. There are bilateral pleural effusions, left greater than right. Retrocardiac density is most likely atelectasis. No pulmonary edema. No pneumothorax. Stable appearance of median sternotomy wires and mediastinal surgical clips. Borderline enlarged cardiomediastinal silhouette unchanged. Small volume anterior pneumomediastinum and subcutaneous emphysema superficial to the sternum are consistent with recent operative status. Procedure Note Hyacinth Cerrato MD - 07/27/2015 EXAMINATION: XR CHEST ROUTINE PA AND LATERAL CLINICAL HISTORY: s/p CABG POD 3 TECHNIQUE: PA and lateral views COMPARISON: 07/24/2015, 07/02/2015 FINDINGS: Interval removal of mediastinal drainage tubes, PA catheter andendotracheal tube. Lungs are mildly hypoinflated. There are bilateral pleuraleffusions, left greater than right. Retrocardiac density is most likely atelectasis. No pulmonary edema. No pneumothorax. Stable appearance of median sternotomy wires and mediastinal surgicalclips. Borderline enlarged cardiomediastinal silhouette unchanged. Small volume anterior pneumomediastinum and subcutaneous emphysema superficial to thesternum are consistent with recent operative status. IMPRESSION IMPRESSION: 1. Mild hypoinflation. 2. Small bilateral pleural effusions, left greater than right.Retrocardiac atelectasis. Tavon Chan MD IMG DX ORDERABLES * Potassium (07/26/2015 5:05 AM EST) Potassium 3.8 3.5 - 5.0 mmol/L [facility] Comment: Please note: ??Patients with WBC >100,000 may have falsely elevated Potassium levels. ??For accurate Potassium quantification in these patients send serum separator tube (gold top) for subsequent determinations. ??Contact the Clinical Chemistry Laboratory if there are any questions. Blood specimen (specimen) 07/26/2015 5:05 AM EST 07/26/2015 5:45 AM EST Narrative Resulting Agency Comment Spec In Lab Tavon Chan MD CHEMISTRY ORDERABLE S Performing Organization Address [facility] Co de Phone Number [facility] Contact At Once![facility] * POCT Glucose (07/25/2015 8:16 AM EST) Glucose, POC 123 65 - 199 mg/dL [facility] Comment: Supplemental ranges: <140 mg/dL before meals <180 mg/dL all other times of the day Blood specimen (specimen) 07/25/2015 8:16 AM EST 07/25/2015 8:16 AM EST Tavon Chan MD POINT OF CARE TEST ORDERABLES Performing Organization Address [facility] Co de Phone Number [facility] Contact At Once![facility] * POCT Glucose (07/25/2015 6:19 AM EST) Glucose, POC 129 65 - 199 mg/dL [facility] Comment: Supplemental ranges: <140 mg/dL before meals <180 mg/dL all other times of the day Blood specimen (specimen) 07/25/2015 6:19 AM EST 07/25/2015 6:19 AM EST Tavon Chan MD POINT OF CARE TEST ORDERABLES Performing Organization Address [facility] Co de Phone Number CERCHIARA DAVILAENNIUM * Electrolytes panel (07/25/2015 4:20 AM EST) Sodium 143 135 - 145 mmol/L CERNER MILLENNIUM Potassium 4.7 3.5 - 5.0 mmol/L CERNER MILLENNIUM Comment: Please note: ??Patients with WBC >100,000 may have falsely elevated Potassium levels. ??For accurate Potassium quantification in these patients send serum separator tube (gold top) for subsequent determinations. ??Contact the Clinical Chemistry Laboratory if there are any questions. Chloride 107 98 - 107 mmol/L CERNER MILLENNIUM Carbon Dioxide 24 22 - 31 mmol/L CERNER MILLENNIUM Anion Gap 12 5 - 15 mmol/L CERNER MILLENNIUM Blood specimen (specimen) Venous Draw / Unknown 07/25/2015 4:20 AM EST 07/25/2015 4:32 AM EST Narrative Resulting Agency Comment Spec In Lab Tavon Chan MD CHEMISTRY ORDERABLE S Performing Organization Address [place]/[facility] Co de Phone Number CERCHIARA DAVILAENNIUM * (ABNORMAL) Differential, Automated (07/25/2015 4:20 AM EST) Pathologist [facility] Neutrophil % 88.2 % CERNER MILLENNIUM Neutrophil Absolute 9.86(H) 1.50 - 6.30 x10(3)/mc L CERNER MILLENNIUM Lymph % 5.3 % CERNER MILLENNIUM Lymphocytes Abs 0.6(L) 1.0 - 3.6 x10(3)/mc L CERNER MILLENNIUM Monocyte % 6.2 % CERNER MILLENNIUM Monocyte Abs 0.7 0.2 - 1.0 x10(3)/mc L CERNER MILLENNIUM Eos % 0.0 % CERNER MILLENNIUM Eosinophils Abs 0.0 0.0 - 0.5 x10(3)/mc L CERNER MILLENNIUM Basophil % 0.1 % CERNER MILLENNIUM Baso Absolute 0.0 0.0 - 0.2 x10(3)/mc L CERNER MILLENNIUM Immature Gran % 0.20 % CERN ER MILLENNIUM Comment: Immature granulocytes(IG's)percentage and absolute count will include metamyelocytes, myelocytes, and promyelocytes. Blood smears from CBCs yielding IG's will be scanned manually for concordance. If this scan disagrees with the automated IG or if promyelocytes are noted, a manual differential will be performed. Immature Gran Absolute 0.02 0.00 - 0.05 x10(3)/mc L CERNER MILLENNIUM Blood specimen (specimen) 07/25/2015 4:20 AM EST 07/25/2015 4:32 AM EST Narrative Resulting Agency Comment Spec In Lab Tavon Chan MD HEMATOLOGY ORDERABL ES [facility]ERN[facility] MILLENNIUM * (ABNORMAL) Hemogram (07/25/2015 4:20 AM EST) White Blood Cell 11.2(H) 4.0 - 10.0 x10(3)/mc L CERNER MILLENNIUM Red Blood Cell 4.10 3.93 - 5.22 x10(6)/mc L CERNER MILLENNIUM Hemoglobin 10.8(L) 11.2 - 15.7 gm/dL CERNER MILLENNIUM Hematocrit 33.2(L) 34.0 - 45.0 % CERNER MILLENNIUM Mean Cell Volume 81.0 79.0 - 94.0 fL CERNER MILLENNIUM Mean Cell Hemoglobin 26.3(L) 26.6 - 32.2 pg CERNER MILLENNIUM Mean Cell Hemoglobin Concentration 32.5 32.0 - 36.5 gm/dL CERNER MILLENNIUM Platelet 132(L) 145 - 370 x10(3)/mc L CERNER MILLENNIUM RDW Standard Deviation 46.0 35.0 - 46.0 fL CERNER MILLENNIUM RDW coefficient of variation 15.6(H) 10.9 - 14.4 % CERNER MILLENNIUM Mean Platelet Volume 11.2 9.0 - 12.0 fL CERNER MILLENNIUM Blood specimen (specimen) 07/25/2015 4:20 AM EST 07/25/2015 4:32 AM EST Narrative Resulting Agency Comment Spec In Lab Tavon Chan MD HEMATOLOGY ORDERABL ES Performing Organization Address [facility] de Phone Number CARISSA HAHN * (ABNORMAL) Cardiac Enzymes (07/25/2015 4:20 AM EST) Troponin-T 0.41(H) <=0.03 ng/mL [facility] Comment: 0.03 ng/mL: Represents the 99th percentile upper reference limit for normals. >0.03 ng/mL: Elevated cardiac troponin T level indicative of myocardial damage. Diagnosis of acute, evolving or recent [place] requires a typical rise and gradual fall of cTnT with at least ONE of the following: a) Ischemic symptoms b) Development of pathologic Q waves on the ECG c) ECG changes indicative of eschemia (S-T segment elevation/depression) d) Coronary artery intervention Serial bloods should be obtained for testing on admission, at 6 to 9 hrs and again at 12 to 24 hrs if earlier samples are negative and the clinical index of suspicion is high. Reference: [Myocardial infarction redefined? a consensus document of the Joint Society of Cardiology/[place] [employer] Committee for the redefinition of myocardial infarction. ??Journal of the [place] [employer] 2000; 36: 959-969] Creatine Kinase 333(H) 0 - 160 unit/L [facility] Blood specimen (specimen) 07/25/2015 4:20 AM EST 07/25/2015 4:32 AM EST Narrative Resulting Agency Comment Spec In Lab Tavon Chan MD CHEMISTRY ORDERABLE S Performing Organization Address [facility] Co de Phone Number CARISSA HAHN * (ABNORMAL) Glucose, fasting (07/25/2015 4:20 AM EST) Glucose Fasting 136(H) 65 - 99 mg/dL [facility] Comment: ?Fasting* Glucose Interpretive Criteria Normal ?65-99 [...] of Diabetes Mellitus, Position Statement from the [place] [employer]. ??Diabetes Care, Volume 33, Supplement 1, Aug 2009 Blood specimen (specimen) 07/25/2015 4:20 AM EST 07/25/2015 4:32 AM EST Narrative Resulting Agency Comment Spec In Lab Tavon Chan MD CHEMISTRY ORDERABLE S Performing Organization Address [facility] Co de Phone Number apprupt * (ABNORMAL) Creatinine (07/25/2015 4:20 AM EST) [facility] Signature Creatinine 0.68(L) 0.70 - 1.20 mg/dL [facility] Comment: Please note that the pediatric reference intervals supplied above were not validated at [facility]. Results from pediatric patients should be interpreted in conjunction to the patient's age, height and muscle mass. Est Glomerular Filtration Rate >60 >=60 [facility] Contact At Once!ENNIUM Comment: This estimated GFR (eGFR) value was calculated using the MDRD equation which has been validated on patients between the ages of 18 and 70. The MDRD should not be used to assess kidney function in patients < 18 years of age or in patients with extremes of body mass, or in patients with acute kidney failure. This value should be multiplied by 1.2 for patients. For further information please copy and paste the following links into your internet browser. [email or web address]/[email or web address] [email or web address].[email or web address] Blood specimen (specimen) 07/25/2015 4:20 AM EST 07/25/2015 4:32 AM EST Narrative Resulting Agency Comment Spec In Lab Tavon Chan MD CHEMISTRY ORDERABLE S Performing Organization Address [facility] de Phone Number [facility] * BUN (07/25/2015 4:20 AM EST) Blood Urea Nitrogen 11 8 - 18 mg/dL [facility] Blood specimen (specimen) 07/25/2015 4:20 AM EST 07/25/2015 4:32 AM EST Narrative Resulting Agency Comment Spec In Lab Tavon Chan MD CHEMISTRY ORDERABLE S Performing Organization Address [facility] de Phone Number [facility] * POCT Glucose (07/25/2015 4:19 AM EST) Glucose, POC 127 65 - 199 mg/dL [facility] Comment: Supplemental ranges: <140 mg/dL before meals <180 mg/dL all other times of the day Blood specimen (specimen) 07/25/2015 4:19 AM EST 07/25/2015 4:19 AM EST Tavon Chan MD POINT OF CARE TEST ORDERABLES Performing Organization Address [facility] de Phone Number [facility] * POCT Glucose (07/25/2015 3:11 AM EST) Glucose, POC 110 65 - 199 mg/dL [facility] Comment: Supplemental ranges: <140 mg/dL before meals <180 mg/dL all other times of the day Blood specimen (specimen) 07/25/2015 3:11 AM EST 07/25/2015 3:11 AM EST Tavon Chan MD POINT OF CARE TEST ORDERABLES Performing Organization Address [facility] Co de Phone Number [facility] * POCT Glucose (07/25/2015 1:23 AM EST) Glucose, POC 131 65 - 199 mg/dL [facility] Comment: Supplemental ranges: <140 mg/dL before meals <180 mg/dL all other times of the day Blood specimen (specimen) 07/25/2015 1:23 AM EST 07/25/2015 1:23 AM EST Taovn Chan MD POINT OF CARE TEST ORDERABLES Performing Organization Address [facility] Co de Phone Number [facility] * POCT Glucose (07/24/2015 11:07 PM EST) Glucose, POC 150 65 - 199 mg/dL [facility] Comment: Supplemental ranges: <140 mg/dL before meals <180 mg/dL all other times of the day Blood specimen (specimen) 07/24/2015 11:07 PM EST 07/24/2015 11:07 PM EST Tavon Chan MD POINT OF CARE TEST ORDERABLES Performing Organization Address [facility] de Phone Number [facility] * POCT Glucose (07/24/2015 9:58 PM EST) Glucose, POC 151 65 - 199 mg/dL [facility] Comment: Supplemental ranges: <140 mg/dL before meals <180 mg/dL all other times of the day Blood specimen (specimen) 07/24/2015 9:58 PM EST 07/24/2015 9:58 PM EST Tavon Chan MD POINT OF CARE TEST ORDERABLES Performing Organization Address [facility] Co ga Phone Number [facility] * (ABNORMAL) BLOOD GAS 2 ARTERIAL (07/24/2015 9:39 PM EST) pH, Arterial 7.38 7.35 - 7.45 [facility] R [facility] PCO2, Arterial 40 35 - 45 mmHg [facility] PO2, Arterial 125(H) 85 - 104 mmHg [facility] Bicarbonate, Arterial 23.2 20.0 - 26.0 mmol/L [facility] Base Excess, Arterial -1.8 -3.0 - 3.0 mmol/L [facility] Hgb Blood Gas 11.3 11.2 - 15.7 gm/dL [facility] Oxyhemoglobin, Arterial 96.8 94.0 - 97.0 % [facility] Carboxyhemoglob in, Arterial 0.2 % [facility] Comment: Nonsmokers: 0.5-1.5% COHB Smokers: Variable, but usually less than 10% Toxic: 20-30% COHB Lethal: Greater than 60% COHB Methemoglobin, Arterial 0.8 <=1.5 % [facility] Na Whole Blood 139 135 - 145 mmol/L [facility] K Whole Blood 3.4(L) 3.5 - 5.0 mmol/L [facility] Comment: Please note: Patients with WBC >100,000 may have falsely elevated Potassium levels. Contact the Clinical Chemistry Laboratory if there are any questions. ICa Whole Blood 1.06(L) 1.15 - 1.33 mmol/L [facility] Comment: Note: ??Total bilirubin higher than 20 mg/dL may lead to falsely low ionized calcium. CL Whole Blood 110(H) 98 - 107 mmol/L [facility] Gluc Whole Bld 176 65 - 199 mg/dL [facility] Comment:Diabetes: >=200 mg/d L plus symptoms. Lactate WB 1.4 0.5 - 2.2 mmol/L [facility] FIO2 Art 40 % [facility]EN[facility] PF Ratio Art 312 [facility] MILLENNI[facility] Temp Art 37.0 Celsius [facility] Blood specimen (specimen) 07/24/2015 9:39 PM EST 07/24/2015 9:39 PM EST Tavon Chan MD POINT OF CARE TEST [facility]ABLES [facility] * POCT Glucose (07/24/2015 8:58 PM EST) Glucose, POC 167 65 - 199 mg/dL [facility] Comment: Supplemental ranges: <140 mg/dL before meals <180 mg/dL all other times of the day Blood specimen (specimen) 07/24/2015 8:58 PM EST 07/24/2015 8:58 PM EST Tavon Chan MD POINT OF CARE TEST ORDERABLES Performing Organization Address [facility] Phone Number [facility] * (ABNORMAL) Hemoglobin (07/24/2015 8:20 PM EST) [facility] Hemoglobin 11.1(L) 11.2 - 15.7 gm/dL [facility] Blood specimen (specimen) 07/24/2015 8:20 PM EST 07/24/2015 8:34 PM EST Narrative Resulting Agency Comment Spec In Lab Tavon Chan MD HEMATOLOGY ORDERABL ES Performing Organization Address [facility] Phone Number [facility] * Potassium (07/24/2015 8:20 PM EST) [facility] Potassium 3.8 3.5 - 5.0 mmol/L [facility] Comment: Please note: ??Patients with WBC >100,000 may have falsely elevated Potassium levels. ??For accurate Potassium quantification in these patients send serum separator tube (gold top) for subsequent determinations. ??Contact the Clinical Chemistry Laboratory if there are any questions. Blood specimen (specimen) 07/24/2015 8:20 PM EST 07/24/2015 8:34 PM EST Narrative Resulting Agency Comment Spec In Lab Tavon Chan MD CHEMISTRY ORDERABLE S Performing Organization Address [facility] Phone Number [facility] * POCT Glucose (07/24/2015 6:45 PM EST) [facility] Glucose, POC 121 65 - 199 mg/dL [facility] Comment: Supplemental ranges: <140 mg/dL before meals <180 mg/dL all other times of the day Blood specimen (specimen) 07/24/2015 6:45 PM EST 07/24/2015 6:45 PM EST Tavon Chan MD POINT OF CARE TEST ORDERABLES Performing Organization Address [facility] Phone Number [facility] * (ABNORMAL) BLOOD GAS 2 ARTERIAL (07/24/2015 5:05 PM EST) pH, Arterial 7.41 7.35 - 7.45 [facility] PCO2, Arterial 37 35 - 45 mmHg [facility] PO2, Arterial 386(H) 85 - 104 mmHg [facility] Bicarbonate, Arterial 23.0 20.0 - 26.0 mmol/L [facility] Base Excess, Arterial -1.6 -3.0 - 3.0 mmol/L [facility] Hgb Blood Gas 12.1 11.2 - 15.7 gm/dL [facility] Oxyhemoglobin, Arterial 98.1(H) 94.0 - 97.0 % [facility] Carboxyhemoglob in, Arterial 0.2 % [facility] Comment: Nonsmokers: 0.5-1.5% COHB Smokers: Variable, but usually less than 10% Toxic: 20-30% COHB Lethal: Greater than 60% COHB Methemoglobin, Arterial 0.9 <=1.5 % [facility] Na Whole Blood 138 135 - 145 mmol/L [facility] K Whole Blood 3.5 3.5 - 5.0 mmol/L [facility] Comment: Please note: Patients with WBC >100,000 may have falsely elevated Potassium levels. Contact the Clinical Chemistry Laboratory if there are any questions. ICa Whole Blood 1.14(L) 1.15 - 1.33 mmol/L [facility] Comment: Note: ??Total bilirubin higher than 20 mg/dL may lead to falsely low ionized calcium. CL Whole Blood 108(H) 98 - 107 mmol/L [facility] Gluc Whole Bld 143 65 - 199 mg/dL [facility] Comment:Diabetes: >=200 mg/d L plus symptoms. Lactate WB 1.8 0.5 - 2.2 mmol/L [facility] FIO2 Art 100 % [facility]ILLENNI[facility] PF Ratio Art 386 [facility] Blood specimen (specimen) 07/24/2015 5:05 PM EST 07/24/2015 5:05 PM EST Tavon Chan MD POINT OF CARE TEST ORDERABLES [facility] * XR Chest Pa or AP- 1 View (07/24/2015 4:45 PM EST) Anatomical Region Laterality Modality Chest N/A Digital Radiogra phy Impressions 07/24/2015 4:49 PM EST IMPRESSION: Expected postoperative findings. No pneumothorax or other complication. Narrative 07/24/2015 4:49 PM EST EXAMINATION: XR CHEST PA OR AP 1 VIEW CLINICAL HISTORY: s/p cabg X 4 TECHNIQUE: Portable AP semiupright chest COMPARISON: 07/02/2015 FINDINGS: There are postsurgical changes including sternotomy wires and bibasilar atelectasis and multiple support devices. The endotracheal tube is in satisfactory position with the tip projecting about 4 cm above the micha. The tip of the PA catheter superimposed over the proximal right pulmonary artery. Also noted are 2 mediastinal drains. No pneumothorax or other complication is seen. Procedure Note Brando Miller MD - 07/24/2015 EXAMINATION: XR CHEST PA OR AP 1 VIEW CLINICAL HISTORY: s/p cabg X 4 TECHNIQUE: Portable AP semiupright chest COMPARISON: 07/02/2015 FINDINGS: There are postsurgical changes including sternotomy wires and bibasilar atelectasis and multiple support devices. The endotracheal tube is in satisfactory position with the tip projecting about 4 cm above the micha.The tip of the PA catheter superimposed over the proximal right pulmonaryartery. Also noted are 2 mediastinal drains. No pneumothorax or other complicationis seen. IMPRESSION IMPRESSION: Expected postoperative findings. No pneumothorax or other complication. Tavon Chan MD IMG DX ORDERABLES * EKG 12 Lead (07/24/2015 4:25 PM EST) Ventricular rate 63 BPM MUSE SYSTEM Atrial Rate 63 BPM MUSE SYSTEM P-R Interval 192 ms MUSE SYSTEM QRS Duration 96 ms MUSE SYSTEM Q-T Interval 464 ms MUSE SYSTEM QTC Calculated (Bezet) 474 ms MUSE SYSTEM Calculated P [place] 74 degrees MUSE SYSTEM Calculated R [place] -64 degrees MUSE SYSTEM Calculated T [place] 86 degrees MUSE SYSTEM INTERPRETATION Normal sinus rhythm Left axis deviation Poor R wave progression Prolonged QT Abnormal ECG When compared with ECG of 02-JUL-2015 07:39, Minimal criteria for Inferior infarct are no longer Present Confirmed by MD ROBLES ALAN ([id number]) on 07/25/2015 10:50:39 PM MUSE SYSTEM 07/24/2015 4:25 PM EST 07/25/2015 10:50 PM EST Tavon Chan MD ECG ORDERABLES MUSE SYSTEM * Prepare Platelets, Apheresis (07/24/2015 3:00 PM EST) Dispensed? Yes [facility] Blood specimen (specimen) 07/24/2015 3:00 PM EST 07/24/2015 2:58 PM EST Tavon Chan MD BLOOD BANK PRODUCT ORDERABLES Performing Organization Address [place]/[facility]/ZIP Co de Phone Number [facility] MILLENNI[facility] * (ABNORMAL) BLOOD GAS 2 ARTERIAL (07/24/2015 2:47 PM EST) pH, Arterial 7.40 7.35 - 7.45 [facility]ILLENNI[facility] PCO2, Arterial 38 35 - 45 mmHg [facility] MILLENNIUM PO2, Arterial 175(H) 85 - 104 mmHg [facility] MILLENNIUM Bicarbonate, Arterial 23.4 20.0 - 26.0 mmol/L [facility]ILLENNI[facility] Base Excess, Arterial -1.4 -3.0 - 3.0 mmol/L [facility] Hgb Blood Gas 8.2(L) 11.2 - 15.7 gm/dL [facility] Oxyhemoglobin, Arterial 97.4(H) 94.0 - 97.0 % [facility] Carboxyhemoglob in, Arterial 1.4 % [facility] Comment: Nonsmokers: 0.5-1.5% COHB Smokers: Variable, but usually less than 10% Toxic: 20-30% COHB Lethal: Greater than 60% COHB Methemoglobin, Arterial 0.4 <=1.5 % [facility]ILLENNI[facility] Na Whole Blood 132(L) 135 - 145 mmol/L [facility]ILLENNI[facility] K Whole Blood 3.7 3.5 - 5.0 mmol/L [facility] Comment: Please note: Patients with WBC >100,000 may have falsely elevated Potassium levels. Contact the Clinical Chemistry Laboratory if there are any questions. ICa Whole Blood 1.14(L) 1.15 - 1.33 mmol/L [facility] Comment: Note: ??Total bilirubin higher than 20 mg/dL may lead to falsely low ionized calcium. CL Whole Blood 103 98 - 107 mmol/L [facility] Gluc Whole Bld 222(H) 65 - 199 mg/dL [facility] Comment:Diabetes: >=200 mg/d L plus symptoms. FIO2 Art 89 % [facility] MILLENNIUM PF Ratio Art 197 [facility] Blood specimen (specimen) 07/24/2015 2:47 PM EST 07/24/2015 2:47 PM EST Tavon Chan MD POINT OF CARE TEST ORDERABLES Performing Organization Address [facility] Phone Number [email or web address] * (ABNORMAL) Fibrinogen (07/24/2015 2:47 PM EST) Fibrinogen 172(L) 175 - 450 mg/dL [facility] Comment:Called by: dave, Read back by: 07/24/15 15:04, Date/Time:gita [email or web address]. Blood specimen (specimen) 07/24/2015 2:47 PM EST 07/24/2015 2:51 PM EST Narrative Resulting Agency Comment Spec In Lab Lakisha Garcia MD HEMATOLOGY ORDERAB LES Performing Organization Address [facility] Phone Number [facility] Contact At Once![facility] * (ABNORMAL) APTT (07/24/2015 2:47 PM EST) Partial Thromboplastin Time 37(H) 25 - 35 sec [facility] Comment: Recommended therapeutic PTT range for full dose unfractionated heparin is 80-114 seconds. Blood specimen (specimen) 07/24/2015 2:47 PM EST 07/24/2015 2:51 PM EST Narrative Resulting Agency Comment Spec In Lab Lakisha Garcia MD HEMATOLOGY ORDERAB LES Performing Organization Address [facility]/State/ZIP Co de Phone Number [facility] * (ABNORMAL) Prothrombin Time (07/24/2015 2:47 PM EST) Prothrombin Time 20.6(H) 12.0 - 15.0 sec [facility]ILL[facility] Comment: Transfusion Committee Guidelines: INR less than 2.0, PTT less than OR equal to 43.5 seconds, or Fibrinogen greater than or equal to 100 mg/dl indicate adequate procoagulant activity for hemostasis in patients without underlying bleeding disorders. International Normalization Ratio 1.7(H) 0.9 - 1.1 [facility]ILL[facility] Blood specimen (specimen) 07/24/2015 2:47 PM EST 07/24/2015 2:51 PM EST Narrative Resulting Agency Comment Spec In Lab Lakisha Garcia MD HEMATOLOGY ORDERAB LES [facility] * (ABNORMAL) Hemogram (07/24/2015 2:47 PM EST) White Blood Cell 8.1 4.0 - 10.0 x10(3)/mc L [facility]ILLENNI[facility] Red Blood Cell 2.95(L) 3.93 - 5.22 x10(6)/mc L [facility] Hemoglobin 7.8(L) 11.2 - 15.7 gm/dL [facility]ILLENNI[facility] Hematocrit 23.9(L) 34.0 - 45.0 % [facility] MILLENNIUM Mean Cell Volume 81.0 79.0 - 94.0 fL [facility] MILLENNIUM Mean Cell Hemoglobin 26.4(L) 26.6 - 32.2 pg [facility] MILLENNIUM Mean Cell Hemoglobin Concentration 32.6 32.0 - 36.5 gm/dL [facility] MILLENNIUM Platelet 109(L) 145 - 370 x10(3)/mc L [facility] MILLENNIUM RDW Standard Deviation 45.3 35.0 - 46.0 fL [facility] MILLENNIUM RDW coefficient of variation 15.3(H) 10.9 - 14.4 % [facility] MILLENNIUM Mean Platelet Volume 10.3 9.0 - 12.0 fL [facility] Blood specimen (specimen) 07/24/2015 2:47 PM EST 07/24/2015 2:51 PM EST Narrative Resulting Agency Comment Spec In Lab Lakisha Garcia MD HEMATOLOGY ORDERAB LES Performing Organization Address [facility] Phone [facility] * (ABNORMAL) Platelet count (07/24/2015 2:06 PM EST) Platelet 140(L) 145 - 370 x10(3)/mcL [facility] MILLENNIUM Blood specimen (specimen) 07/24/2015 2:06 PM EST 07/24/2015 2:11 PM EST Narrative Resulting Agency Comment Spec In Lab Tavon Chan MD HEMATOLOGY ORDERABL ES Performing Organization Address [facility] Phone [facility] * (ABNORMAL) Hemoglobin (07/24/2015 2:06 PM EST) Hemoglobin 7.6(L) 11.2 - 15.7 gm/dL [facility] Blood specimen (specimen) 07/24/2015 2:06 PM EST 07/24/2015 2:11 PM EST Narrative Resulting Agency Comment Spec In Lab Tavon Chan MD HEMATOLOGY ORDERABL ES Performing Organization Address [facility] Phone Number [facility] * (ABNORMAL) Hematocrit (07/24/2015 2:06 PM EST) Hematocrit 23.2(L) 34.0 - 45.0 % [facility] MILL[facility] Blood specimen (specimen) 07/24/2015 2:06 PM EST 07/24/2015 2:11 PM EST Narrative Resulting Agency Comment Spec In Lab Tavon Chan MD HEMATOLOGY ORDERABL ES Performing Organization Address [facility] Phone Number [facility] * (ABNORMAL) Fibrinogen (07/24/2015 2:06 PM EST) Fibrinogen 166(L) 175 - 450 mg/dL [facility] Comment:Called by: dave, Read back by: 07/24/15 14:24, Date/Time:danielle barrera. Blood specimen (specimen) 07/24/2015 2:06 PM EST 07/24/2015 2:11 PM EST Narrative Resulting Agency Comment Spec In Lab Tavon Chan MD HEMATOLOGY ORDERABL ES [facility] * (ABNORMAL) BLOOD GAS 2 ARTERIAL (07/24/2015 2:03 PM EST) pH, Arterial 7.43 7.35 - 7.45 [facility]ERN[facility] MILLENNIUM PCO2, Arterial 40 35 - 45 mmHg [facility]ERN[facility] MILLENNIUM PO2, Arterial 329(H) 85 - 104 mmHg C[facility] MILLENNIUM Bicarbonate, Arterial 26.1(H) 20.0 - 26.0 mmol/L [facility] MILLENNIUM Base Excess, Arterial 1.9 -3.0 - 3.0 mmol/L [facility]ILLENNI[facility] Hgb Blood Gas 8.1(L) 11.2 - 15.7 gm/dL [facility]ILL[facility] Oxyhemoglobin, Arterial 98.5(H) 94.0 - 97.0 % [facility] MILLENNIUM Carboxyhemoglob in, Arterial 0.8 % [facility] Comment: Nonsmokers: 0.5-1.5% COHB Smokers: Variable, but usually less than 10% Toxic: 20-30% COHB Lethal: Greater than 60% COHB Methemoglobin, Arterial 0.3 <=1.5 % [facility] MILLENNI[facility] Na Whole Blood 129(L) 135 - 145 mmol/L [facility]ILLENNI[facility] K Whole Blood 4.4 3.5 - 5.0 mmol/L [facility] Comment: Please note: Patients with WBC >100,000 may have falsely elevated Potassium levels. Contact the Clinical Chemistry Laboratory if there are any questions. ICa Whole Blood 0.92(Criti carisa) 1.15 - 1.33 mmol/L [facility] Comment: Noted by instrument sterilizer. Note: ??Total bilirubin higher than 20 mg/dL may lead to falsely low ionized calcium. CL Whole Blood 100 98 - 107 mmol/L [facility]ILLEN[facility] Gluc Whole Bld 265(H) 65 - 199 mg/dL [facility] Comment:Diabetes: >=200 mg/d L plus symptoms. Blood specimen (specimen) 07/24/2015 2:03 PM EST 07/24/2015 2:03 PM EST Tavon Chan MD POINT OF CARE TEST ORDERABLES [facility] * (ABNORMAL) BLOOD GAS 2 ARTERIAL (07/24/2015 1:25 PM EST) pH, Arterial 7.44 7.35 - 7.45 [facility] MILLENNIUM PCO2, Arterial 35 35 - 45 mmHg CERNER MILLENNIUM PO2, Arterial 343(H) 85 - 104 mmHg [facility]ERN[facility] MILLENNIUM Bicarbonate, Arterial 23.3 20.0 - 26.0 mmol/L [facility]ERN[facility] MILLENNIUM Base Excess, Arterial -0.8 -3.0 - 3.0 mmol/L [facility] MILLENNIUM Hgb Blood Gas 8.1(L) 11.2 - 15.7 gm/dL [facility] MILLENNIUM Oxyhemoglobin, Arterial 98.5(H) 94.0 - 97.0 % [facility]ERNER MILLENNIUM Carboxyhemoglob in, Arterial 0.6 % [facility] MILLENNIUM Comment: Nonsmokers: 0.5-1.5% COHB Smokers: Variable, but usually less than 10% Toxic: 20-30% COHB Lethal: Greater than 60% COHB Methemoglobin, Arterial 0.4 <=1.5 % [facility] MILLENNIUM Na Whole Blood 130(L) 135 - 145 mmol/L [facility] MILLENNIUM K Whole Blood 4.8 3.5 - 5.0 mmol/L [facility]ILLENNI[facility] Comment: Please note: Patients with WBC >100,000 may have falsely elevated Potassium levels. Contact the Clinical Chemistry Laboratory if there are any questions. ICa Whole Blood 0.90(Criti carisa) 1.15 - 1.33 mmol/L [facility]ILLENNI[facility] Comment: Noted by instrument sterilizer. Note: ??Total bilirubin higher than 20 mg/dL may lead to falsely low ionized calcium. CL Whole Blood 100 98 - 107 mmol/L [facility] MILLENNIUM Gluc Whole Bld 226(H) 65 - 199 mg/dL [facility] Comment:Diabetes: >=200 mg/d L plus symptoms. Blood specimen (specimen) 07/24/2015 1:25 PM EST 07/24/2015 1:25 PM EST Tavon Chan MD POINT OF CARE TEST ORDERABLES [facility] * (ABNORMAL) BLOOD GAS 2 ARTERIAL (07/24/2015 1:00 PM EST) pH, Arterial 7.42 7.35 - 7.45 CERNER MILLENNIUM PCO2, Arterial 38 35 - 45 mmHg CERNER MILLENNIUM PO2, Arterial 373(H) 85 - 104 mmHg CERNER MILLENNIUM Bicarbonate, Arterial 24.2 20.0 - 26.0 mmol/L CERNER MILLENNIUM Base Excess, Arterial -0.3 -3.0 - 3.0 mmol/L CERNER MILLENNIUM Hgb Blood Gas 8.4(L) 11.2 - 15.7 gm/dL [facility] MILLENNIUM Oxyhemoglobin, Arterial 98.3(H) 94.0 - 97.0 % [facility]ERN[facility] MILLENNIUM Carboxyhemoglob in, Arterial 1.0 % [facility]ERN[facility] MILLENNIUM Comment: Nonsmokers: 0.5-1.5% COHB Smokers: Variable, but usually less than 10% Toxic: 20-30% COHB Lethal: Greater than 60% COHB Methemoglobin, Arterial 0.5 <=1.5 % [facility] MILLENNIUM Na Whole Blood 133(L) 135 - 145 mmol/L [facility]ERN[facility] MILLENNIUM K Whole Blood 4.7 3.5 - 5.0 mmol/L [facility] MILLENNIUM Comment: Please note: Patients with WBC >100,000 may have falsely elevated Potassium levels. Contact the Clinical Chemistry Laboratory if there are any questions. ICa Whole Blood 0.85(Criti carisa) 1.15 - 1.33 mmol/L [facility]ILLENNI[facility] Comment: Noted by instrument sterilizer. Note: ??Total bilirubin higher than 20 mg/dL may lead to falsely low ionized calcium. CL Whole Blood 100 98 - 107 mmol/L [facility] MILLENNIUM Gluc Whole Bld 211(H) 65 - 199 mg/dL [facility]ILLENNI[facility] Comment:Diabetes: >=200 mg/d L plus symptoms. Blood specimen (specimen) 07/24/2015 1:00 PM EST 07/24/2015 1:00 PM EST Tavon Chan MD POINT OF CARE TEST ORDERABLES [facility] * (ABNORMAL) BLOOD GAS 2 ARTERIAL (07/24/2015 11:33 AM EST) pH, Arterial 7.50(H) 7.35 - 7.45 CERNER MILLENNIUM PCO2, Arterial 31(L) 35 - 45 mmHg CERNER MILLENNIUM PO2, Arterial 478(H) 85 - 104 mmHg [facility]ERNER MILLENNIUM Bicarbonate, Arterial 23.4 20.0 - 26.0 mmol/L CERNER MILLENNIUM Base Excess, Arterial 0.2 -3.0 - 3.0 mmol/L CERNER MILLENNIUM Hgb Blood Gas 12.8 11.2 - 15.7 gm/dL CERNER MILLENNIUM Oxyhemoglobin, Arterial 98.9(H) 94.0 - 97.0 % CERNER MILLENNIUM Carboxyhemoglob in, Arterial 0.9 % CERNER MILLENNIUM Comment: Nonsmokers: 0.5-1.5% COHB Smokers: Variable, but usually less than 10% Toxic: 20-30% COHB Lethal: Greater than 60% COHB Methemoglobin, Arterial 0.2 <=1.5 % CERNER MILLENNIUM Na Whole Blood 140 135 - 145 mmol/L CERNER MILLENNIUM K Whole Blood 3.5 3.5 - 5.0 mmol/L CERNER MILLENNIUM Comment: Please note: Patients with WBC >100,000 may have falsely elevated Potassium levels. Contact the Clinical Chemistry Laboratory if there are any questions. ICa Whole Blood 1.11(L) 1.15 - 1.33 mmol/L CERNER MILLENNIUM Comment: Note: ??Total bilirubin higher than 20 mg/dL may lead to falsely low ionized calcium. CL Whole Blood 105 98 - 107 mmol/L CERNER MILLENNIUM Gluc Whole Bld 113 65 - 199 mg/dL CERNER MILLENNIUM Comment:Diabetes: >=200 mg/d L plus symptoms. FIO2 Art 97 % [facility] PF Ratio Art 493 [facility] Blood specimen (specimen) 07/24/2015 11:33 AM EST 07/24/2015 11:33 AM EST Tavon Chan MD POINT OF CARE TEST ORDERABLES Performing Organization Address [facility] Phone Number [facility] * Prepare RBC (07/24/2015 10:05 AM EST) [facility]? [facility] Blood specimen (specimen) 07/24/2015 10:05 AM EST 07/24/2015 10:03 AM EST Tavon Chan MD BLOOD BANK PRODUCT ORDERABLES Performing Organization Address [facility] Phone Number [facility] * POCT Glucose (07/24/2015 9:16 AM EST) Glucose, POC 95 65 - 199 mg/dL [facility] Comment: Supplemental ranges: <140 mg/dL before meals <180 mg/dL all other times of the day Blood specimen (specimen) 07/24/2015 9:16 AM EST 07/24/2015 9:16 AM EST Narrative Authorizing Provider Result Rodney Chan MD POINT OF CARE TEST ORDERABLES Performing Organization Address 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 documented in this encounter Administered Medications Inactive Administered Medications - up to 3 most recent administrations Medication Order MAR Action Action Date Dose Rate Site acetaminophen (TYLENOL) tablet 1,000 mg 1,000 mg, Oral, EVERY 6 HOURS SCHEDULED, First dose on Flavia 07/24/15 at 1800, Until Discontinued, For pain when taking by mouth, Routine Given 07/26/2015 6:31 AM EST 1,000 mg Given 07/26/2015 1:00 AM EST 1,000 mg Given 07/25/2015 6:39 PM EST 1,000 mg acetaminophen (TYLENOL) tablet 500 mg 500 mg, Oral, EVERY 3 HOURS PRN, Starting on 07/26/15 at 0756, Until Tue07/29/15 at 1350, Pain, Maximum dose of acetaminophen is 4000 mg from all sources in 24 hours., Routine Given 07/28/2015 9:12 PM EST 500 mg Given 07/28/2015 1:22 PM EST 250 mg Given 07/28/2015 6:53 AM EST 250 mg albumin, human 5% 250 mL bottle Intravenous, ONCE, 1 dose, On Flavia 07/24/15 at 1630, PRN as needed for volume replacement to maintain cardiac index greater than or equal to 2.0 L/min/M2, Recovery (Recovery-Hospital Unit), STAT Given 07/24/2015 7:41 PM EST 12.5 g albuterol (PROVENTIL HFA;VENTOLIN HFA;PROAIR) 90 mcg/actuation inhaler 2 puff 2 puff, Inhalation, 4 TIMES DAILY, First dose on Flavia 07/24/15 at 1630, Until Discontinued, When EXtubated., Routine Given 07/27/2015 7:42 PM EST 2 puf fs Given 07/27/2015 4:45 PM EST 2 puffs Given 07/27/2015 9:33 AM EST 2 puffs albuterol (PROVENTIL HFA;VENTOLIN HFA;PROAIR) 90 mcg/actuation inhaler 2 puff 2 puff, Inhalation, EVERY 6 HOURS PRN, Starting on Tue07/28/15 at 0700, Until Tue07/29/15 at 1350, Wheezing, When EXtubated., Routine Given 07/29/2015 9:26 AM EST 2 puffs Given 07/29/2015 4:34 AM EST 2 puffs Given 07/28/2015 9:12 PM EST 2 puffs aspirin chewable tablet 81 mg 81 mg, Oral, DAILY, First dose on Tue07/25/15 at 0900, Until Discontinued, Start on post-op day 1 in the AM., Routine Given 07/29/2015 8:02 AM EST 81 mg Given 07/28/2015 9:58 AM EST 81 mg Given 07/27/2015 9:33 AM EST 81 mg atorvastatin (LIPITOR) tablet 80 mg 80 mg, Oral, EVERY EVENING, First dose on Tue07/25/15 at 1700, Until Discontinued, Routine Given 07/28/2015 5:3 2 PM EST 80 mg Given 07/27/2015 4:45 PM EST 80 mg Given 07/26/2015 6:02 PM EST 80 mg cefUROXime (ZINACEF) 750mg vial attach to sodium chloride 0.9% 100 mL Mini-Bag Plus 750 mg, Intravenous, EVERY 8 HOURS, 3 doses, First dose on Tue07/24/15 at 2300, Last dose on Tue07/25/15 at 1500, Administer over 30 Minutes, Attach to 100 mL sodium Chloride Mini-bag Plus. Give first dose at 8 hours after dose in operating room., Indication for (Active or Suspected): Prophylaxis Given 07/25/2015 2:54 PM EST 750 mg 200 mL/hr Given 07/25/2015 6:19 AM EST 750 mg 200 mL/hr Given 07/25/2015 12:03 AM EST 750 mg 200 mL/hr chlorhexidine (PERIDEX) 0.12 % oral solution 15 mL 15 mL, Oral, EVERY 12 HOURS SCHEDULED (2 times per day), First dose on Tue07/24/15 at 2100, Until Discontinued, Hens[place] teeth., Routine Given 07/24/2015 9:59 PM EST 15 mLs fentaNYL 50 mcg/mL infusion 0-100 mcg/hr (0-2 mL/hr), Intravenous, CONTINUOUS, Starting on Tue07/24/15 at 1630, Until Tue07/25/15 at 0949, Titrate to patient comfort, pain scale 1-3. Start at 25 mcg/hr, adjust by 25 mcg/hr every 15 minutes. Dose not to exceed 100 mcg/hour. Rate/Dose Verify 07/25/2015 2:00 AM EST 25 mcg/hr 0.5 mL/hr Rate/Dose Verify 07/25/2015 12:00 AM EST 25 mcg/hr 0.5 mL /hr Rate/Dose Verify 07/24/2015 10:00 PM EST 25 mcg/hr 0.5 mL /hr furosemide (LASIX) injection 20 mg 20 mg, Intravenous, 2 TIMES DAILY, First dose on Tue07/25/15 at 0930, Until Discontinued Given 07/27/2015 4:45 PM EST 20 mg Given 07/27/2015 9:33 AM EST 20 mg Given 07/26/2015 6:02 PM EST 20 mg furosemide (LASIX) tablet 20 mg 20 mg, Oral, 2 TIMES DAILY, First dose on 07/28/15 at 0900, Until Discontinued, Routine Given 07/29/2015 8:0 2 AM EST 20 mg Given 07/28/2015 5:32 PM EST 20 mg Given 07/28/2015 9:59 AM EST 20 mg insulin regular human (HumuLIN;NovoLIN) 1unit/mL 150 Units in sodium chloride 0.9% 150 mL infusion 0.5-16 Units/hr (0.5-16 mL/hr), Intravenous, CHANGE BAG EVERY EVENING, First dose on Flavia 07/24/15 at 1630, Until Discontinued, Type 2 diabetes. Current blood glucose 140 - 179 Titration- aim for target range of 140 - 180 mg/dL. Check BG every hour unless otherwise indicated. [[ No initial bolus. Begin continuous infusion at 2 units/hour. ]] Current BG less than 80 - Stop insulin. Re-check BG in 30 minutes and as soon as BG is greater than 80, restart with rate 50% of previous rate. If BG less than 70, treat per hypoglycemia protocol. If infusion stopped after previous rate had been 0.5 unit/hour, recheck every hour and when BG greater than 100 and higher than last test restart at 0.5 unit/hour. Current BG 80 - 139 - If BG dropped 10 mg/dL or more since last test, decrease rate by 50% and re-check in 30 minutes. Otherwise, decrease rate by 0.5 units/hour. Current BG 140 - 180 - If BG dropped 50 mg/dL or more since last test, decrease rate by 1 unit/hour. Otherwise, maintain same rate. Current BG 181 - 220 - If BG is lower than last test, maintain same rate. Otherwise, increase rate by 0.5 units/hour. Current BG 221 - 250 - If BG dropped 30 mg/dL or more since last test, maintain same rate. Otherwise, increase rate by 1 unit/hour. Current BG greater than 250 - Increase rate by 1 unit/hour AND bolus with Regular insulin IV as per IV Bolus Scale. Re-check BG in 30 minutes., Routine Rate/Dose Change 07/25/2015 3:12 AM EST 1 Units/hr 1 mL/hr Rate/Dose Verify 07/25/2015 2:00 AM EST 1.5 Units/hr 1.5 m L/hr Rate/Dose Change 07/25/2015 1:24 AM EST 1.5 Units/hr 1.5 m L/hr ipratropium-albuterol (DUONEB) 0.5 mg-3 mg(2.5 mg base)/3 mL nebulizer solution 3 mL 3 mL, Nebulization, EVERY 4 HOURS, First dose on 07/28/15 at 0715, Until Discontinued, Routine Given 07/28/2015 8:13 PM EST 3 mLs Given 07/28/2015 5:33 PM EST 3 mLs Given 07/28/2015 1:26 PM EST 3 mLs lactated ringers infusion 1,000 mL 1,000 mL, at 100 mL/hr, Intravenous, CONTINUOUS, Starting on Flavia 07/24/15 at 0930, Until Flavia 07/24/15 at 1602, Day of Surgery (Day of Procedure) New Bag 07/24/2015 10:43 AM EST New Bag 07/24/2015 9:30 AM EST 1,000 mLs 100 mL/hr magnesium hydroxide (MILK OF MAGNESIA) oral suspension 10 mL 10 mL, Oral, DAILY, First dose on 07/26/15 at 0900, Until Discontinued, Post-op day 2. Do not use with renal insufficiency., Routine Given 07/26/2015 9:42 AM EST 10 mLs meTOPROLOL (LOPRESSOR) tablet 12.5 mg 12.5 mg, Oral, EVERY 12 HOURS SCHEDULED (2 times per day), First dose (after last modification) on Tue07/25/15 at 1515, Until Discontinued, Routine Given 07/27/2015 8:11 PM EST 12.5 mg Given 07/27/2015 9:33 AM EST 12.5 mg Given 07/26/2015 9:12 PM EST 12.5 mg meTOPROLOL (LOPRESSOR) tablet 12.5 mg 12.5 mg, Oral, ONCE, 1 dose, On Tue07/27/15 at 2100, Routine Given 07/27/2015 9:30 PM EST 12.5 mg meTOPROLOL tartrate (LOPRESSOR) tablet 25 mg 25 mg, Oral, EVERY 8 HOURS SCHEDULED, First dose (after last modification) on 07/28/15 at 0845, Until Discontinued, Hold for SBP<90 and Hrt rate <50, Routine Given 07/29/2015 6:25 AM EST 25 mg Given 07/28/2015 9:12 PM EST 25 mg Given 07/28/2015 3:12 PM EST 25 mg nitroGLYcerin 50 mg in dextrose 5% 250 mL infusion 0-200 mcg/min (0-60 mL/hr), Intravenous, CONTINUOUS, Starting on Flavia 07/24/15 at 1630, Until Tue07/25/15 at 0949, For hypertension. Titrate to keep systolic blood pressure less than 120 mmHg. Initiate at 25 mcg/min. Adjust by 25 mcg/min every 5 minutes. Dose not to exceed 200 mcg/minute., Routine Rate/Dose Change 07/24/2015 10:30 PM EST 45 mcg/min 13.5 mL/hr Rate/Dose Change 07/24/2015 10:13 PM EST 90 mcg/min 27 mL/ hr Rate/Dose Verify 07/24/2015 10:00 PM EST 100 mcg/min 30 mL /hr NORepinephrine 16 mcg/mL (standard ADULT and Cate greater than 20 kg) infusion 0-30 mcg/min (0-112.5 mL/hr), Intravenous, CONTINUOUS, Starting on Flavia 07/24/15 at 1630, Until Tue07/25/15 at 0949, Titrate to keep systolic blood pressure greater than 90 mmHg. Start at 2 mcg/minute and adjust by 2 mcg/min every 3 minutes. Dose not to exceed 30 mcg/minute. Begin if phenyleprine and/or vasopressin ineffective.Call pager # [phone] if initiated., Routine Rate/Dose Change 07/24/2015 7:00 PM EST 3 mcg/min 11.3 mL/hr Rate/Dose Change 07/24/2015 6:00 PM EST 2 mcg/min 7.5 mL/ hr ondansetron (ZOFRAN) injection 4 mg 4 mg, Intravenous, EVERY 8 HOURS PRN, Starting on Flavia 07/24/15 at 1608, Until Tue07/29/15 at 1350, Nausea Given 07/26/2015 3:52 PM EST 4 mg oxyCODONE (ROXICODONE) immediate release tablet 2.5-5 mg 2.5-5 mg, Oral, EVERY 4 HOURS PRN, Starting on Flavia 07/24/15 at 1608, Until Tue07/29/15 at 1350, Pain, Give 5 mg 1/2 tab PO Q 4 hours PRN for pain >/= to 3-5/10. Give 5 mg 1 tabs PO Q 4 hours PRN for pain >/= to 6-10/10. Call provider for new pain management orders if pain not relieved after an appropriate amount of time or if regimen is not tolerated. Hold if patient appears over sedated., Routine Given 07/26/2015 9:06 PM EST 2.5 mg Given 07/25/2015 9:04 PM EST 2.5 mg Given 07/25/2015 2:59 PM EST 5 mg pantoprazole (PROTONIX) injection 40 mg 40 mg, Intravenous, DAILY, First dose on Flavia 07/24/15 at 1630, Until Discontinued, Reconstitute with 10 mL of normal saline to a concentration of 4 mg/mL and infuse slowly over 2 minutes., Routine Given 07/24/2015 6:52 PM EST 40 mg pantoprazole (PROTONIX) tablet 40 mg 40 mg, Oral, DAILY, First dose on Flavia 07/24/15 at 1630, Until Discontinued, If unable to take PO, may give IV Given 07/29/2015 8:02 AM EST 40 mg Given 07/28/2015 9:59 AM EST 40 mg Given 07/27/2015 9:33 AM EST 40 mg potassium chloride (K-DUR/KLOR-CON) extended release tablet 10 mEq 10 mEq, Oral, 2 TIMES DAILY, First dose on 07/26/15 at 0900, Until Discontinued, Routine Given 07/28/2015 9:59 AM EST 10 mEq Given 07/27/2015 8:11 PM EST 10 mEq Given 07/27/2015 9:33 AM EST 10 mEq potassium chloride (KAYCIEL) 20 mEq/15 mL oral solution 20 mEq 20 mEq, Oral, 2 TIMES DAILY, First dose on 07/28/15 at 1515, Until Discontinued Given 07/29/2015 8:03 AM EST 20 mEq Given 07/28/2015 3:13 PM EST 20 mEq potassium chloride 20 mEq in 100 mL 20 mEq, Intravenous, EVERY 1 HOUR PRN, Starting on Flavia 07/24/15 at 1608, Until 07/25/15 at 0949, Administer over 60 Minutes, hypokalemia, Administer 2 doses for a serum potassium (mMol/L) of 3.3 - 3.8 See instructions for Potassium Protocol in online policies. Given 07/25/2015 1:30 AM EST 20 mEq 100 mL/hr Given 07/24/2015 11:24 PM EST 20 mEq 100 mL/hr propofol (DIPRIVAN) infusion 0-50 mcg/kg/min ? 74.2 kg (0-22.26 mL/hr, rounded to 0-22.3 mL/hr), Intravenous, CONTINUOUS, Starting on Flavia 07/24/15 at 1630, Until Tue07/25/15 at 0949, Titrate to sedation level of RASS Goal (-) 1. Start at 10 mcg/kg/min, adjust rate by 5 mcg/kg/min every 3 minutes. Dose not to exceed 50 mcg/kg/minute. Discontinue upon extubation., Routine Rate/Dose Change 07/24/2015 7:00 PM EST 20 mcg/kg/min 8.9 mL/hr Rate/Dose Verify 07/24/2015 6:00 PM EST 30.099 mcg/kg/min 13.4 mL/hr New Bag 07/24/2015 5:01 PM EST 30 mcg/kg/min 13.4 mL/hr senna-docusate (PERICOLACE) 8.6-50 mg per tablet 2 tablet 2 tablet, Oral, DAILY, First dose on Tue07/25/15 at 2100, Until Discontinued, Post-op day 1, Routine Given 07/26/2015 9:05 PM EST 2 tablets sodium chloride 0.9 % flush 5 mL 5 mL, Intravenous, EVERY 8 HOURS, First dose on Tue07/25/15 at 1015, Until Discontinued, Routine Given 07/27/2015 7:48 PM EST 5 mLs Given 07/27/2015 9:33 AM EST 5 mLs Given 07/27/2015 2:14 AM EST 5 mLs sodium chloride 0.9% infusion 0-500 mL/hr, Intravenous, CONTINUOUS, Starting on Flavia 07/24/15 at 1630, Until Tue07/25/15 at 0949, Bolus 250 mL every 5 minutes as needed for volume replacement to maintain cardiac index greater than or equal to 2.0 L/min/M2. Maximum volume 2 L. Call manager of housekeeping for additional fluid orders: pager #[phone]. Rate/Dose Verify 07/24/2015 6:00 PM EST 200 mL/hr 200 mL/hr New Bag 07/24/2015 5:13 PM EST 200 mL/hr 200 mL/hr sodium chloride 0.9% infusion 10-30 mL/hr, Intravenous, DAILY PRN, Starting on Flavia 07/24/15 at 1608, Until Tue07/25/15 at 0949, Side port TKO rate, per CV nursing protocol. Rate/Dose Verify 07/24/2015 10:00 PM EST 30 mL/hr 30 mL/hr Rate/Dose Verify 07/24/2015 8:00 PM EST 30 mL/hr 30 mL/h r Rate/Dose Verify 07/24/2015 7:00 PM EST 30 mL/hr 30 mL/h r sodium chloride 0.9% infusion 10-30 mL/hr, Intravenous, DAILY PRN, Starting on Flavia 07/24/15 at 1608, Until Tue07/25/15 at 0949, Side port TKO rate, per [facility] nrusing protocol. Rate/Dose Verify 07/25/2015 6:00 AM EST 30 mL/hr 30 mL/hr Rate/Dose Verify 07/25/2015 4:00 AM EST 30 mL/hr 30 mL/h r Rate/Dose Verify 07/25/2015 2:00 AM EST 30 mL/hr 30 mL/h r documented in this encounter Active and Recently Administered Medications Times are shown in EST. Scheduled Medication Order 07/27/2015 07/28/2015 07/29/2015 albuterol (PROVENTIL HFA;VENTOLIN HFA;PROAIR) 90 mcg/actuation inhaler 2 puff (CANCELED) 2 puff, Inhalation, 4 TIMES DAILY, First dose on Flavia 07/24/15 at 1630, Until Discontinued, When EXtubated., Routine 0933 (Given - Provider: Shwetha Ferguson RN)1200 (Not Given - Provider: Shwetha Ferguson RN - Reason: Patient/family refused)1645 (Given - Provider: Shwetha Ferguson RN)1942 (Given - Provider: China Mandujano RN) aspirin chewable tablet 81 mg (CANCELED)(Linked Group 1) 81 mg, Oral, DAILY, First dose on Tue07/25/15 at 0900, Until Discontinued, Start on post-op day 1 in the AM., Routine 0933 (Given - Provider: Shwetha Ferguson RN) 0958 (Given - Provider: Barbara Garcia RN) 0802 (Given - Provider: Barbara Garcia RN) atorvastatin (LIPITOR) tablet 80 mg (CANCELED) 80 mg, Oral, EVERY EVENING, First dose on Tue07/25/15 at 1700, Until Discontinued, Routine 1645 (Given - Provider: Shwetha Ferguson RN) 1732 (Given - Provider: Barbara Garcia RN) furosemide (LASIX) injection 20 mg (CANCELED) 20 mg, Intravenous, 2 TIMES DAILY, First dose on Tue07/25/15 at 0930, Until Discontinued 0933 (Given - Provider: Shwetha Ferguson RN)1645 (Given - Provider: Shwetha Ferguson RN) furosemide (LASIX) tablet 20 mg 20 mg, Oral, 2 TIMES DAILY, First dose on Tue07/28/15 at 0900, Until Discontinued, Routine 0959 (Given - Provider: Barbara Garcia RN)1732 (Given - Provider: Barbara Garcia RN) 0802 (Given - Provider: Barbara Garcia RN) ipratropium-albuterol (DUONEB) 0.5 mg-3 mg(2.5 mg base)/3 mL nebulizer solution 3 mL (CANCELED) 3 mL, Nebulization, EVERY 4 HOURS, First dose on Tue07/28/15 at 0715, Until Discontinued, Routine 1016 (Given - Provider: Barbara Garcia RN)1326 (Given - Provider: Barbara Garcia RN)1733 (Given - Provider: Barbara Garcia RN - Comment: given early due to SOB)2012 (Given - Provider: Nancy Jc RN)2315 (Not Given - Provider: Nancy Jc RN - Reason: Patient/family refused) 0315 (Not Given - Provider: Nancy Jc RN - Reason: Patient/family refused)0715 (Not Given - Provider: Nancy Jc RN - Reason: Patient/family refused)1115 (Due) meTOPROLOL (LOPRESSOR) tablet 12.5 mg (CANCELED) 12.5 mg, Oral, EVERY 12 HOURS SCHEDULED (2 times per day), First dose (after last modification) on Tue07/25/15 at 1515, Until Discontinued, Routine 0933 (Given - Provider: Shwetha Ferguson RN)2010 (Given - Provider: China Mandujano, LENKA) meTOPROLOL (LOPRESSOR) tablet 12.5 mg (COMPLETED) 12.5 mg, Oral, ONCE, 1 dose, On Tue07/27/15 at 2100, Routine 2130 (Given - Provider: China Mandujano, LENKA) meTOPROLOL tartrate (LOPRESSOR) tablet 25 mg 25 mg, Oral, EVERY 8 HOURS SCHEDULED, First dose (after last modification) on Tue07/28/15 at 0845, Until Discontinued, Hold for SBP<90 and Hrt rate <50, Routine 0958 (Given - Provider: Barbara Garcia RN)1511 (Given - Provider: Barbara Garcia RN)2111 (Given - Provider: Nancy Jc RN) 624 (Given - Provider: Nancy Jc RN) pantoprazole (PROTONIX) tablet 40 mg (CANCELED)(Linked Group 2) 40 mg, Oral, DAILY, First dose on Flavia 07/24/15 at 1630, Until Discontinued, If unable to take PO, may give IV 0933 (Given - Provider: Shwetha Ferguson RN) 0959 (Given - Provider: Barbara Garcia RN) 08 (Given - Provider: Barbara Garcia RN) potassium chloride (K-DUR/KLOR-CON) extended release tablet 10 mEq 10 mEq, Oral, 2 TIMES DAILY, First dose on Tue07/26/15 at 0900, Until Discontinued, Routine 33 (Given - Provider: Shwetha Ferguson RN)2010 (Given - Provider: China Mandujano, LENKA) 09 (Given - Provider: Barbara Garcia RN) potassium chloride (KAYCIEL) 20 mEq/15 mL oral solution 20 mEq (CANCELED) 20 mEq, Oral, 2 TIMES DAILY, First dose on 07/28/15 at 1515, Until Discontinued 1513 (Given - Provider: Barbara Garcia RN) 0803 (Given - Provider: Barbara Garcia RN) senna-docusate (PERICOLACE) 8.6-50 mg per tablet 2 tablet 2 tablet, Oral, DAILY, First dose on Tue07/25/15 at 2100, Until Discontinued, Post-op day 1, Routine 2100 (Not Given - Provider: China Mandujano RN - Reason: Patient/family refused) 2100 (Not Given - Provider: Nancy Jc RN - Reason: Patient/family refused) sodium chloride 0.9 % flush 5 mL (CANCELED) 5 mL, Intravenous, EVERY 8 HOURS, First dose on Tue07/25/15 at 1015, Until Discontinued, Routine 0214 (Given - Provider: Cece Felix RN)0933 (Given - Provider: Shwetha Ferguson RN)1948 (Given - Provider: China Mandujano RN) 0400 (Not Given - Provider: China Mandujano RN - Reason: See comment)1015 (Not Given - Provider: Barbara Garcia RN - Reason: Order parameters not met)1815 (Not Given - Provider: Barbara Garcia RN - Reason: Order parameters not met) 0215 (Not Given - Provider: Nancy Jc RN - Reason: Patient/family refused)1015 (Not Given - Provider: Barbara Garcia RN - Reason: Order parameters not met) PRN Medication Order 07/27/2015 07/28/2015 07/29/2015 acetaminophen (TYLENOL) tablet 500 mg 500 mg, Oral, EVERY 3 HOURS PRN, Starting on 07/26/15 at 0756, Until Tu07/29/15 at 1350, Pain, Maximum dose of acetaminophen is 4000 mg from all sources in 24 hours., Routine 0210 (Given - Provider: Cece Felix RN)1038 (Given - Provider: Shwetha Ferguson RN)1945 (Given - Provider: China Mandujano RN) 0431 (Given - Provider: China Mandujano RN - Comment: per patient request. States it has been upsetting her stomach. Would like the next half with breakfast)0653 (Given - Provider: China Mandujano RN - Comment: per patient request)1322 (Given - Provider: Barbara E Garcia, RN - Comment: pt requested half dose of tylenol, which she has gotten in the past)2111 (Given - Provider: Nancy Jc RN) albuterol (PROVENTIL HFA;VENTOLIN HFA;PROAIR) 90 mcg/actuation inhaler 2 puff (CANCELED) 2 puff, Inhalation, EVERY 6 HOURS PRN, Starting on Tue07/28/15 at 0700, Until Tue07/29/15 at 1350, Wheezing, When EXtubated., Routine 1512 (Given - Provider: Barbara Garcia RN)2111 (Given - Provider: Nancy Jc RN) 433 (Given - Provider: Nancy Jc RN)925 (Given - Provider: Harmony Kasper RN) oxyCODONE (ROXICODONE) immediate release tablet 2.5-5 mg 2.5-5 mg, Oral, EVERY 4 HOURS PRN, Starting on Tue07/24/15 at 1608, Until Tue07/29/15 at 1350, Pain, Give 5 mg 1/2 tab PO Q 4 hours PRN for pain >/= to 3-5/10. Give 5 mg 1 tabs PO Q 4 hours PRN for pain >/= to 6-10/10. Call provider for new pain management orders if pain not relieved after an appropriate amount of time or if regimen is not tolerated. Hold if patient appears over sedated., Routine Linked Groups Order Group 1: aspirin chewable tablet 81 mg (CANCELED)Jump to med 81 mg, Oral, DAILY, First dose on Tue07/25/15 at 0900, Until Discontinued, Start on post-op day 1 in the AM., Routine Or aspirin suppository 300 mg (CANCELED) 300 mg, Rectal, DAILY, First dose on Tue07/25/15 at 0900, Until Discontinued, Start on post-op day 1 in the AM, Routine Group 2: pantoprazole (PROTONIX) tablet 40 mg (CANCELED)Jump to med 40 mg, Oral, DAILY, First dose on Tue07/24/15 at 1630, Until Discontinued, If unable to take PO, may give IV Or pantoprazole (PROTONIX) injection 40 mg (CANCELED) 40 mg, Intravenous, DAILY, First dose on Tue07/24/15 at 1630, Until Discontinued, Reconstitute with 10 mL of normal saline to a concentration of 4 mg/mL and infuse slowly over 2 minutes., Routine documented in this encounter
--- OUTSIDE RECORDS SUMMARY | 2024-03-29 03:36 | XMS_ITS | Encounter Summary ---
[place] [address] Care Team Providers Care Wash Barrel Leader Name Role Phone Unavailable Primary Care Provider Unavailabl e Encounter Details Date Type Department Care Team (Late st Contact Info) Description 06/15/2017 [place] [id number] Chon Snyder MD [facility] [address] Social History Tobacco Use Types Packs/Day Years [...] encounter Miscellaneous Notes * Telephone Encounter - Elana Zuniga RN - 06/15/2017 10:34 AM EDT Call received from Dr. Og Parker's nurse, and he needs a Lipid 2 non fasting. Orders placed in system. * Telephone Encounter - Elana Zuniga RN - 06/15/2017 10:07 AM EDT Call placed back to patient to relay message below, left message on voicemail to call back office. Call placed to Dr. Foley's office to aliya cholesterol orders, left message on voicemail to call back office. * Telephone Encounter - Elana Zuniga RN - 06/15/2017 9:[address] Snyder: Could you help her? ??She just needs to know where and when to show up for the PFTs. ??I ordered CPK which is in the system. ? I do not see the cholesterol order she is describing. ??Maybe her doctor is not ? ??If that is the case, we can definitely order it and she can get it done here but would need to get the results toher doctor, and we need to figure out exactly what the doctor needs (presumably just a fasting cholesterol but I dont know). documented in this encounter Plan of Treatment Not on file documented as of this encounter Visit Diagnoses Not on filedocumented in this encounter
--- OUTSIDE RECORDS SUMMARY | 2024-03-29 03:36 | XMS_ITS | Encounter Summary ---
[place] [address] Care Team Providers Care Football Coach Name Role Phone Unavailable Primary Care Provider Unavailabl e Encounter Details Date Type Department Care Team (Late st Contact Info) Description 07/23/2016 Telephone [place] [address] Chon Snyder MD [facility] [place] [address] Social History Tobacco Use Types Packs/Day Years [...] Telephone Encounter - Chon Snyder MD - 07/23/2016 8:57 AM EST Spoke with Ms. Amador to review elevated CPK. I asked her to please come for EMG next Monday 07/30at 9AM. I will look for signs of IBM (I did not write down FF strength last visit) given foot drop or statin myopathy. documented in this encounter Plan of Treatment Not on file documented as of this encounter Visit Diagnoses Not on filedocumented in this encounter
--- OUTSIDE RECORDS SUMMARY | 2024-03-29 03:36 | XMS_ITS | Encounter Summary ---
[place] [address] Care Team Providers Care Family Medicine Chair Name Role Phone Unavailable Primary Care Provider Unavailabl e Reason for Visit * Reason Comments Medication Management Medication Refill Encounter Details Date Type Department Care Team ([facility] st Contact Info) Description 04/02/2019 Specialty [place] [id number] Sadaf Mauricio [facility] Social History Tobacco Use Types Packs/Day [...] as of this encounter Progress Notes * Sadaf Mauricio RPH - 04/02/2019 12:34 PM EDT Clinical Management Plan: Refill Specialty Pharmacy Consultation; Sadaf Mauricio [facility] Comprehensive Medication Management (CMM) Ginger Mario Perry Ms. Ginger Amador is a 83 y.o. (1935) female who was contacted in regard to a specialty medication refill reminder. Spoke with patient regarding Prauluent. A review of the medication therapy was performed. The medication was refilled. Patient is only taking the medication every 3-4 weeks due to cost. Answered medication related questions and concerns. I also talked to her about looking intomedication assistance. She cannot use a copay card because of medicare; however, she was agreeable to being referred to the medication assistance program (MAP) here to see if there is anything they can do to help. The should be reaching out to her soon, and I gave her their number. The specialty pharmacy staff will follow up with the patient 5-7 days prior to next refill. Was a change made to the Care Plan: no Assessment and Recommendations: Title Type of Medication Management: chronic disease management Referred By: provider Recipient: beneficiary Provider: plan sponsor pharmacist Visit Type: [facility] Follow-up Method of Contact: by telephone Allergies and Drug intolerance: Allergies Allergen Reactions ??? Bacitracin ??? Gabapentin Other (See Comments) [place] like a zombie ??? Gramicidin D ??? Ibuprofen ??? Lidocaine ??? Neomycin Sulfate ??? Neosporin [Hydrocortisone] ??? Polymyxin B ??? Polymyxin B Sulfate ??? Soy ??? Kqddfzg-Bzv-Toq Reductase Inhibitors Other (See Comments) Muscle soreness/weakness, fatigue ??? Sulfa (Sulfonamide Antibiotics) ??? Wheat Nausea And Vomiting Extreme fatigue and sleepiness Medication Reconciliation Discrepancies (compared to [facility] med list) -no New medications: Yes-ezetimibe New medical conditions: no New allergies: no Adherence: Medication Adherence Patient reported X missed doses in the last month: 0 Any gaps in refill history greater than 2 weeks in the last 3 months: yes Demonstrates understanding of importance of adherence: no Informant: patient Reliability of informant: reliable Provider-estimated medication adherence level: 51-75% Reasons for non-adherence: patient has problems affording medications Adherence tools used: directed education Confirmed plan for next specialty medication refill: delivery by pharmacy Are you experiencing any side effects from your medications? no Pt understands no changes to current drug regimen were made at the appointment and that [facility] is providing recommendations (summary located at top of note) for provider review and follow up. Sadaf Mauricio RPH 04/02/19 12:36 PM documented in this encounter Plan of Treatment Not on file documented as of this encounter Visit Diagnoses Not on filedocumented in this encounter
--- OUTSIDE RECORDS SUMMARY | 2024-03-29 03:36 | XMS_ITS | Encounter Summary ---
[place] [address] Care Team Providers Care Cd Manufacturing Supervisor Name Role Phone Unavailable Primary Care Provider Unavailabl e Encounter Details Date Type Department Care Team (Late st Contact Info) Description 06/15/2017 Orders [place] [address] Chon Snyder MD [facility] [place] [address] Coronary artery disease, angina presence unspecified, unspecified vessel or lesion type, unspecified whether sun'aq or transplanted heart (Primary Dx) Social History Tobacco Use Types Packs/Day Years [...] as of this encounter Visit Diagnoses Diagnosis Coronary artery disease, angina presence unspecified, unspecified vessel or lesion type, unspecified whether sun'aq or transplanted heart- Primary documented in this encounter
--- OUTSIDE RECORDS SUMMARY | 2024-03-29 03:36 | XMS_ITS | Encounter Summary ---
Author Organization [facility] [place] [address] Care Team Providers Care Hvac/R Service Technician Name Role Phone Unavailable Primary Care Provider Unavailabl e Reason for Visit * Consultation (Routine) - Closed Specialty Diagnoses / Procedures Referred By Kirk newton Referred To Contact Neurology Diagnoses Ataxia Jacob Foley, DO [address] [place] [address] [facility] [address] [place] [id number] Referral ID Status Reason Start Date Expiration Date V isits Requested Visits Authorized [id number] Closed Consult, Test & [facility] 05/06/2016 05/06/2017 1 1 Encounter Details Date Type Department Care Team (Late st Contact Info) Description 07/13/2016 11:00 AM EST Office [place] [address] Chon Snyder MD [facility] [place] [address] Right foot drop; Ulnar neuropathy of right upper extremity; Right median nerve neuropathy; Right hand weakness Social History Tobacco Use Types Packs/Day Years [...] Sign Reading Time Taken Comments Blood Pressure 154/71 07/13/2016 10:58 AM EST Pulse 56 07/13/2016 10:58 AM EST Temperature - - Respiratory Rate - - Oxygen Saturation - - Inhaled Oxygen Concentration - - Weight 74.8 kg (165 lb) 07/13/2016 10:58 AM EST Height 154.9 cm (5' 1) 07/13/2016 10:58 AM EST Body Mass Index 31.18 07/13/2016 10:58 AM EST documented in this encounter Progress Notes * Chon Snyder MD - 07/13/2016 11:00 AM EST NEUROLOGY CLINIC [facility] [place] [address] [address] Facsimile: 07/13/2016 Patient name: Ginger Amador Date of : 1935 Referring provider: Jacob Foley DO [address] [place] [address] Ginger Amador is a 80-year-old woman referred for balance issues. Ms. Amador has a history of coronary artery disease status post CABG, right ulnar neuropathy status post transposition, bilateral carpal tunnel syndrome status post carpal tunnel release, hypertension, hyperlipidemia, and bilateral knee replacements, who reports that for the last few years, she has noticed some difficulty walking. She calls this a balance trouble, but when you get into the history, it is actually that she has trouble walking and can fall occasionally because she catches her right foot. She has to walk slower and pay more attention to walking because of this propensity to trip. She has fallen perhaps 3 times in the last year since her CABG. The balance trouble preexisted the surgery by quite a few years. It has been slowly progressive, but not quickly. She has had no major falls. She does have a history of low back pain. She does not say that her legs get weak or her back hurts more or her legs hurt more after walking any distance. She does get short of breath after walking a distance. She has a history of asthma in addition to her heart disease. Still, there is no history to suggest neurogenic claudication. Her symptoms are unchanged walking up and down stairs. She does have some numbness on the bottoms of her feet. She also reports some numbness in the right hand. She has weakness of the right hand as well, but this is the side on which she had both the carpal tunnel release and ulnar transposition. She does report that her symptoms did not improve much after the ulnar nerve surgery. She might have regained some function of her right thumb, but her numbness has persisted and she remains quite weak in the right hand. She has trouble doing buttons and jars. This seems to have progressed. In addition, her right thumb weakness has progressed even after her carpal tunnel surgeries. She did get electrodiagnostic studies here back in 2004 prior to release with Angelo Pulido. The ulnar nerve workup was elsewhere and the surgery was elsewhere, as well. She does not have much in the way of neck pain. She has no bowel or bladder trouble. Her gait problems are not substantially worse in the dark or when closing her eyes in the shower. PAST MEDICAL HISTORY: As reviewed above. FAMILY HISTORY: There is no history of neuropathy. SOCIAL HISTORY: She does not drink alcohol or smoke. She may have a couple of drinks per month. She lives up near [facility]. 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 She lives by herself. MEDICATIONS: I reviewed and updated these in the computer as appropriate. She is on baby aspirin as well as medicine for hypertension and hyperlipidemia. ALLERGIES: She has a number of allergies which I reviewed and updated in the computer. REVIEW OF SYSTEMS: All systems are reviewed and are otherwise negative. PHYSICAL EXAM: Her blood pressure is 154/71 with a pulse of 56. Her BMI is 31.2. On general exam, she appears quite healthy for her medical conditions and her age. She is very pleasant. On musculoskeletal exam, she has a restricted range of motion in her right knee. She cannot flex it more than 100 or 110 degrees using a straight leg as 0. She has significant osteoarthritis including swelling of her left MTP joint as well as her bilateral first PIP joints. She has significant varicose veins bilaterally, but seems to have decent pulses distally and her feet are warm. On neurologic exam, her mental status and cranial nerves are normal. On motor exam, her tone is normal. She does have some atrophy in her right FDI muscle as well as her right APB muscle. On strength testing, she is weak in the right TA, EHL and inversion to the tune of 4 out of 5. Her toe flexion is also weak at least in her great toe. The hamstrings and hip abduction seem strong as does foot eversion and iliopsoas. Her left leg is better, but she has some weakness in toe flexion. Her reflexes are somewhat decreased throughout. I am unable to obtain any lower extremity reflexes, but the upper extremities are 2+. On strength testing in the hands, she does have some 4- out of 5 weakness in the right APB and 4+ out of 5 in the bilateral interosseous muscles. On sensory testing, she has numbness in all the fingers of her right hand. She also has decreased sensation to light touch and pin prick in the right foot both dorsally and on the volar surface. Pin prick seems substantially decreased in the first inter web space in the deep peroneal distribution. In the zuluaga, the sensation is somewhat decreased on the lateral surface compared to he medial surface, but it is not particularly reliable. She feels like the whole right leg and foot is decreased compared to the left, but I was really unable to tease this apart successfully with pin prick and light touch. Her vibration is asymmetric, essentially absent in the right great toe and decreased, but present, in the left great toe. It is fairly normal at the ankles bilaterally. Her orzcrc-qk-brqm exam is normal. Her gait is somewhat antalgic, but otherwise narrow and normal. She is able to stand with her feet together without difficulty and has a negative Romberg sign. She can toe walk without difficulty but has trouble dorsiflexing her right foot when heel walking. I do not see any evidence of proximal leg weakness. ASSESSMENT AND PLAN: 1. Right foot drop. At this point, the etiology is not clear. I suspect this is contributing to her gait problem rather than any sensory or cerebellar ataxia. This could be from the back or could be due to peroneal neuropathy. I suggested EMG/NCS to help work this out. She will schedule this today in our next available slot. 2. Right hand weakness and history of median and ulnar neuropathies. She gives a history that her hand weakness has continued to progress. It will be important to rule out recurrent or additional disease. We will study her right hand as well as the right leg when she comes back for the EMG/nerve conduction studies to figure out the etiology of her significant hand weakness. I also suggested a right AFO to prevent dragging her foot. She was very reluctant, for some reason. She thinks it will limit her ability to rehabilitate. I discussed that nerves cannot really be rehabilitated and it will be important to prevent falls by wearing this brace. She will think about it and consider it at the next visit. I spent 40 minutes in xoxq-cw-rmgd consultation with this patient of which greater than 20 minutes were spent in supportive counseling and therapeutic planning. She will come back for EMG and nerve conduction studies. I will also send her to the lab today for basic neuropathy screening. She will call me in the interim if anything changes. Thank you for this consult. Please do not hesitate to contact me with any questions or concerns. 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 Right hand weakness VITAMIN B12 Routine 07/13/2016 12:02 PM EST Right foot drop 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 Right hand weakness CK Routine 07/13/2016 12:02 PM EST Right foot drop 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 Right hand weakness documented in this encounter Results * Sedimentation rate (07/13/2016 12:02 PM EST) Sedimentation Rate Automated 8 0 - 20 mm/hr [facility] Blood specimen (specimen) 07/13/2016 12:02 PM EST 07/13/2016 12:06 PM EST Narrative Resulting Agency Comment Spec In Lab Chon Snyder MD HEMATOLOGY ORDERA BLES Performing Organization Address City/[facility] Co de Phone Number [facility] [place] [address] * Protein Electrophoresis, serum (07/13/2016 12:02 PM EST) Total Prot Electrophoresis 6.8 6.1 - 8.0 gm/dL [facility] Albumin Electrophoresis 4.47 3.60 - 6.00 gm/dL [facility] Alpha 1 Globulin 0.17 0.10 - 0.30 gm/dL [facility] Alpha 2 Globulin 0.65 0.40 - 0.90 gm/dL [facility] Beta Globulin 0.65 0.50 - 1.00 gm/dL [facility] Gamma Globulin 0.85 0.50 - 1.30 gm/dL [facility] M1 Band None Detected [facility] Blood specimen (specimen) 07/13/2016 12:02 PM EST 07/13/2016 12:06 PM EST Narrative Resulting Agency Comment Spec In Lab Chon Snyder MD CHEMISTRY ORDERAB LES Performing Organization Address [facility] Co de Phone Number [facility] [place] [address] * (ABNORMAL) CK (07/13/2016 12:02 PM EST) Creatine Kinase 310(H) 0 - 160 unit/L [facility] Blood specimen (specimen) 07/13/2016 12:02 PM EST 07/13/2016 12:06 PM EST Narrative Resulting Agency Comment Spec In Lab Chon Snyder MD CHEMISTRY ORDERAB LES Performing Organization Address City/[facility] Co de Phone Number [facility] [place] [address] * Vitamin B12 (07/13/2016 12:02 PM EST) Vitamin B12 488 207 - 974 pg/mL [facility] Blood specimen (specimen) 07/13/2016 12:02 PM EST 07/13/2016 12:06 PM EST Narrative Resulting Agency Comment Spec In Lab Chon Snyder MD CHEMISTRY ORDERAB LES Performing Organization Address City/State/[facility] Co de Phone Number [facility] [place] [address] documented in this encounter Visit Diagnoses Diagnosis Right foot drop Other acquired deformity of ankle and foot Ulnar neuropathy of right upper extremity Lesion of ulnar nerve Right median nerve neuropathy Right hand weakness Muscle weakness (generalized) documented in this encounter
--- OUTSIDE RECORDS SUMMARY | 2024-03-29 03:36 | XMS_ITS | Encounter Summary ---
Author Organization [facility] [place] [address] Care Team Providers Care Interventional Radiology Technologist Name Role Phone Unavailable Primary Care Provider Unavailabl e Reason for Referral * Physical Therapy (Routine) - Specialty Diagnoses / Procedures Referred By Kirk newton Referred To Contact Physical Therapy Diagnoses Radiculopathy of lumbar region Chon Snyder MD [facility] [place] [address] Referral ID Status Reason Start Date Expiration Date V isits Requested Visits Authorized [id number] Evaluate and Treat 10/20/2016 04/18/2017 12 12 Encounter Details Date Type Department Care Team (Late st Contact Info) Description 10/20/2016 2:00 PM EST Office [place] [address] Chon Snyder MD [facility] [place] [address] Radiculopathy of lumbar region Social History Tobacco Use Types Packs/Day [...] Sign Reading Time Taken Comments Blood Pressure 155/55 10/20/2016 1:51 PM EST Pulse 59 10/20/2016 1:51 PM EST Temperature - - Respiratory Rate - - Oxygen Saturation - - Inhaled Oxygen Concentration - - Weight 78.4 kg (172 lb 12.8 oz) 10/20/2016 1:51 PM EST Height 154.9 cm (5' 1) 10/20/2016 1:51 PM EST r eported Body Mass Index 32.65 10/20/2016 1:51 PM EST documented in this encounter Progress Notes * Chon Snyder MD - 10/20/2016 2:00 PM EST Ginger Amador is a 80-year-old woman who I saw for right leg weakness and comes now for followup. She continues to have mild weakness of the right leg. She has trouble walking a long distance or standing for a long time. Previously, she was catching her foot a lot due to dorsiflexion weakness and this has improved to a degree but she still continues to have some trouble. She has numbness on the outside of the right leg. As you recall, this has all been slowly progressive over a few years. I did an EMG nerve conduction study that demonstrated low tibial motor action potentials, amplitude, and prolonged F waves, as well as chronic neurogenic changes most severe in the right tibialis anterior. In summary, I suspected lumbar radiculopathy most prominently at the right L5 level. I then obtained an MRI of the lumbar spine. She has pretty significant degenerative disease with multilevel severe neural foraminal narrowing as well as mild to moderate central canal narrowing. At the right L5 level, there is a synovial cyst as well as significant facet arthropathy severely narrowing the right L5 neural foramen. I reviewed this scan at length with Ginger Amador. I discussed the natural history of lumbar radiculopathy and lumbar stenosis. Unfortunately, surgery is often a poor option for this condition. It may help but from time to time, people come out much worse than they go in with little use of their legs. She feels she is doing okay and would like to try physical therapy and continued conservative measures for now. She is having cramping at night occasionally. I suggested gabapentin 100 mg at night to help with this as a low dose. If she does not have sedation or other side effects, she can try increasing this to 200 or 300 mg a couple of hours before she goes to bed. I suggested an ankle foot orthotic but she is resistant. She will talk about it with her physical therapist. I gave her a prescription to take to her physical therapist in [facility]. I will plan to see her back in 6 months. If things worsen significantly, we could always consider referral to surgery. I told her if things are doing better, she can feel free to cancel it. I spent 25 minutes in izza-[id number]-qylu consultation with this patient of which greater than 20 minutes was spent in supportive counseling and therapeutic Planning and in discussing the natural history of lumbar stenosis and radiculopathy. Chon Snyder MD 10/20/2016 documented in this encounter Plan of Treatment Scheduled Referrals Name Type Priority Associated Diagnoses Orde r Schedule Referral to Physical Therapy Outpatient Referral Routine Radiculopathy of lumbar region Ordered: 10/20/2016 documented as of this encounter Visit Diagnoses Diagnosis Radiculopathy of lumbar region Thoracic or lumbosacral neuritis or radiculitis, unspecified documented in this encounter
--- OUTSIDE RECORDS SUMMARY | 2024-03-29 03:36 | XMS_ITS | Encounter Summary ---
Author [place] [address] Care Team Providers Care Global Lead Name Role Phone Unavailable Primary Care Provider Unavailabl e Reason for Visit * Reason Onset Date Comments Prior Authorization 12/25/2018 Praluent Encounter Details Date Type Department Care Team (Late st Contact Info) Description 12/25/2018 [place] [phone] Christophe Carrington Prior Authorization (Praluent) Social History Tobacco Use Types Packs/Day Years [...] encounter Miscellaneous Notes * Telephone Encounter - Mariza Baires - 12/26/2018 11:32 AM EDT [facility], Prior Authorization Approval Medication Name: Praluent FILLABLE AT [facility]? yes APPROVAL DATES: 12/25/18 - 06/27/19 SPECIFIC INS REQUIREMENT: CASE/REFERENCE # [id number] APPROVAL NOTIFICATION RECEIVED VIA: COPAY: $459.92 (3 month) or 158.95 (1 month) COPAY ASSISTANCE NEEDED?: May be eligible for Praluent Pass Program NOTES: * Telephone Encounter - Christophe Carrington - 12/25/2018 2:45 PM EDT [facility], Medication Prior Authorization Patient: Ginger Amador Patient : 1935 Patient Address: [address] [address] (home) Medication: Praluent Subscriber Insurance: [employer] Medicare part D Physician: Nellie Mclaughlin Sent Via: Fax Torres: N/A Ref/Case/PA#: Medication Strength Frequency Requested: 75mg/mL auto-injector - 75mg every 14 days Qty/Day Supply: New Start: Yes Diagnosis & ICD-10 Code: Coronary artery disease involving lone pine coronary artery, angina presence unspecified, unspecified whether lone pine or transplanted heart I25.10 documented in this encounter Plan of Treatment Not on file documented as of this encounter Visit Diagnoses Not on filedocumented in this encounter
--- OUTSIDE RECORDS SUMMARY | 2024-03-29 03:36 | XMS_ITS | Encounter Summary ---
[place] [address] Care Team Providers Care Order Entry Name Role Phone Unavailable Primary Care Provider Unavailabl e Reason for Visit * Reason Comments Patient Education Encounter Details Date Type Department Care Team ([facility] st Contact Info) Description 12/29/2018 Specialty Pharmacy [place] [address] Pilo Griffin [facility] Social History Tobacco Use Types Packs/Day [...] Progress Notes * Pilo Griffin RPH - 12/29/2018 3:32 PM EDT Clinical Management Plan: Opt-out of Initial Consult Specialty Pharmacy Consultation; Pilo Griffin RPH Comprehensive Medication Management (CMM) Ginger Amador Diagnosis: Hyperlipidemia w/ CAD Ms. Ginger Amador is a 82 y.o. (1935) female who was contacted for an initial consult regarding their specialty medication, Praluent. At this time the patient has declined consult due to havingalready given her initial injection and having read the literature accompanying her medication. A medication reconciliation and confirmation of allergies was not performed due to patient preference. Patient states she started Praluent this morning following the 12/27/18 dispensing. She notes no issues with her first injection and denies redness, swelling, or itching at the injection site. She finds the pens easy to use and was able to explain to me the storage requirements of the medication. The specialty pharmacy staff will follow up with the patient 5-7 days prior to next refill for reminder if needed. She had no questions or concerns at the end of our encounter. Pilo Griffin RPH 12/29/18 3:32 PM documented in this encounter Plan of Treatment Not on file documented as of this encounter Visit Diagnoses Not on filedocumented in this encounter
--- OUTSIDE RECORDS SUMMARY | 2024-03-29 03:36 | XMS_ITS | Encounter Summary ---
Author Organization [facility] [place] [address] Care Team Providers Care Lawn Caretaker Name Role Phone Unavailable Primary Care Provider Unavailabl e Encounter Details Date Type Department Care Team (Late st Contact Info) Description 04/21/2017 10:30 AM EDT [place] [address] Chon Snyder MD [facility] [place] [address] Generalized weakness Social History Tobacco Use Types Packs/Day [...] Sign Reading Time Taken Comments Blood Pressure 158/65 04/21/2017 10:35 AM EDT Pulse 54 04/21/2017 10:35 AM EDT Temperature - - Respiratory Rate - - Oxygen Saturation - - Inhaled Oxygen Concentration - - Weight 77.1 kg (170 lb) 04/21/2017 10:35 AM EDT Height 156.2 cm (5' 1.5) 04/21/2017 10:35 AM ED T reported Body Mass Index 31.6 04/21/2017 10:35 AM EDT documented in this encounter Progress Notes * Chon Snyder MD - 04/21/2017 10:30 AM EDT Ginger Amador is a 81-year-old woman with right leg weakness. As you recall, she has trouble walking a long distance or standing for a long time. She had numbness on the outside of the right leg. It has been slowly progressive for years. The MRI spine showed significant degenerative disease with multilevel several neuroforaminal narrowing as well as moderate central narrowing. The right L5 neuroforamen was quite severely narrowed. I think she does have lumbar stenosis. In addition she has had a persistently mildly elevated CPK. She has a history of coronary artery disease and takes Crestor. It is possible CPK elevation is due to this. I did not see any signs of myopathy on the prior EMG. I reviewed her family history. Her sister is in a wheelchair but apparently has obesity and knee problems, so it is not clearly due to a neuromuscular disease. Her parents both early, so it is a little hard to know if she had early onset hereditary problem. She could not tolerate the gabapentin. Overall she is doing fine but she still feels occasional weakness in the arms and legs. It is really more like premature fatigue. It is unclear if it is deconditioning or something else. She also has some shortness of breath. She has a history of asthma and feels that the shortness of breath is due to this. She also has a history of cardiac exertional dyspnea. I will check a CPK today. I will also write a letter to her doctor who I hope will help with transitioning from Crestor to a different statin. I will check a CPK in 2 months after she has been on pravastatin or a different agent that is less likely to cause myositis. I will also schedule her pulmonary function tests at that time to help identify this is neuromuscular weakness or a reversible obstructive problem such as asthma. I will also see her back on the same day as the pulmonary function test to review how she is doing on the different statin and to reexamine her and review the pulmonary function test. I discussed with her that a different agent might put her at higher risk of stroke and heart attack but she feels like she would like to take that risk and see if helps her weakness. I spent 25 minutes in [id number] consultation of which greater than half of the visit was spent in supportive counseling and therapeutic planning. Chon Snyder MD 04/21/2017 documented in this encounter Plan of Treatment Not on file documented as of this encounter Procedures Procedure Name Priority Date/Time Associated Diagnosis Comments CK Routine 04/21/2017 11:27 AM EDT Generalized weakness documented in this encounter Results [...] capacity ?? normal Functional residual capacity ??normal [place] volume ??normal Normal total lung capacity and subdivisions of lung volume refute a restrictive ventilatory defect. TOYA PALMA MD Chon Snyder MD PFT ORDERABLES * (ABNORMAL) CK (04/21/2017 11:27 AM EDT) Creatine Kinase 252(H) 0 - 160 unit/L [facility] Blood specimen (specimen) 04/21/2017 11:27 AM EDT 04/21/2017 11:37 AM EDT Narrative Resulting Agency Comment Spec In Lab Chon Snyder MD CHEMISTRY ORDERAB LES [facility] [place] [address] documented in this encounter Visit Diagnoses Diagnosis Generalized weakness Other malaise and fatigue Generalized weakness Other malaise and fatigue documented in this encounter
--- OUTSIDE RECORDS SUMMARY | 2024-03-29 03:36 | XMS_ITS | Encounter Summary ---
[place] [address] Care Team Providers Care Men'S Golf Coach Name Role Phone Unavailable Primary Care Provider Unavailabl e Encounter Details Date Type Department Care Team (Late st Contact Info) Description 12/20/2018 External Results Non-Invasive [place] [id number] Social History Tobacco Use Types Packs/Day Years [...] Procedure Name Priority Date/Time Associated Diagnosis Comments ECHO SCAN (SCAN) Routine 12/19/2018 documented in this encounter Results * Scan Doc: Echo (12/19/2018) Anatomical Region Laterality Modality Cardiac Other Historical Provider MD BLUE MGRaghavendra SCAN EX T ORDR/RSLT documented in this encounter Visit Diagnoses Not on filedocumented in this encounter
--- OUTSIDE RECORDS SUMMARY | 2024-03-29 03:36 | XMS_ITS | Encounter Summary ---
Author Organization [facility]ly [facility] Address [facility] [place] [address] Care Team Providers Care Director Of Guidance Name Role Phone Unavailable Primary Care Provider Unavailabl e Encounter Details Date Type Department Care Team (Latest Contact Info) Description 03/30/2019 12:20 PM EDT Clinical Support Cardiology at [address] [address] Luis Felipe Flores, RD [facility] [place] [address] Nutritional counseling Social History Tobacco Use Types Packs/Day Years [...] this encounter Progress Notes * Luis Felipe Flores, TUSHAR - 03/30/2019 12:20 PM EDT Date 04/05/2019 Patient Name Ginger Amador 1935 Referred by: Og For (what diagnosis) Lipid Clinic: hyperlipidemia Pt reports Gluten-free diet x 18 years; feels low-energy, achy when consuming gluten. Also soy-freeas soy causes diarrhea, weakness and fatigue, unsure if oats and corn may also impact health but uses them regularly at the [facility] at this time. 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 Med Hx (Diagnoses) Active Ambulatory Problems Diagnosis Date Noted ??? Verruca vulgaris 09/28/2012 ??? Seborrheic keratosis 09/28/2012 ??? Actinic keratosis 03/30/2013 ??? CAD (coronary artery disease) 07/02/2015 ??? Hypertension 07/02/2015 ??? Status post coronary artery bypass grafting 07/24/2015 ??? Asthma 09/19/2018 ??? LUNA (dyspnea on exertion) 01/30/2019 ??? Muscle cramps 01/30/2019 Resolved Ambulatory Problems Diagnosis Date Noted ??? No Resolved Ambulatory Problems Past Medical History: Diagnosis Date ??? Coronary artery disease ??? Lumbar radiculopathy ??? Median nerve neuropathy ??? Right foot drop ??? Statin intolerance ??? Ulnar nerve neuropathy Medications with Nutrition Implications include cod liver oil (omega-3, vits A & D) Current Outpatient Medications: ??? ezetimibe (ZETIA) 10 mg Tablet, Take 1 tablet by mouth daily., Disp: 90 tablet, Rfl: 3 ??? nitroGLYcerin (NITROSTAT) 0.4 mg Tablet, Sublingual, Place 1 tablet under the tongue every 5 minutes as needed for Chest pain., Disp: 90 tablet, Rfl: 12 ??? chlorthalidone (HYGROTEN) 25 mg Tablet, Take 0.5 tablets by mouth daily., Disp: 90 tablet, Rfl:3 ??? spironolactone (ALDACTONE) 25 mg Tablet, Take 12.5 mg by mouth daily., Disp: , Rfl: 0 ??? alirocumab 75 mg/mL Pen Injector, Inject 75 mg subcutaneously every 14 days. (Patient taking differently: Inject 75 mg subcutaneously every 21 days.), Disp: 6 mL, Rfl: 3 ??? losartan (COZAAR) 100 mg Tablet, Take 100 mg by mouth daily., Disp: , Rfl: ??? Cod Liver Oil Oil, Take 1 Dose by mouth daily., Disp: , Rfl: ??? GLUCOSAMINE/METHYLSULFONYLMETH (GLUCOSAMINE MSM ORAL), Take 500 mg by mouth as needed., Disp: ,Rfl: ??? CALCIUM ORAL, Take 1 tablet by mouth daily., Disp: , Rfl: ??? FEVERFEW ORAL, Take 1 tablet by mouth daily., Disp: , Rfl: ??? fluticasone-salmeterol (ADVAIR) 250-50 mcg/dose Disk with Device, Inhale 1 puff into the lungs 2 times daily., Disp: , Rfl: ??? amLODIPine (NORVASC) 5 mg Tablet, Take 5 mg by mouth daily., Disp: , Rfl: ??? aspirin 81 mg Tablet, Delayed Release (E.C.), Take 1 tablet by mouth daily., Disp: 30 tablet, Rfl: 3 Food Frequency Questionnaire completed by patient reflects diet contains qod ice cream, chocolate candy; weekly sausage, never deep-fried foods; frequent ocean foods in a well-balanced and varied diet. 24-hour food recall from patient reflects results from Cronometer nutrient analysis: not done today FINDINGS: Pt may benefit from weight-reduction using pbuteu-ueavxfkwo-skiq diet to reduce carb intake. Pt has a large event planned and would like to delay focusing on her health until that is over on 04/28/2019. a) Food & Symptom Record-keeping a. [place] ___[email or web address] b. NUTRITION EDUCATION: a) Increase nutrient-dense and high-fiber, low saturated (15 g), no trans fats foods a. Goal: At least two servings/day sulfur-containing vegetables daily b. Goal: Increase nuts to 1 ounce daily c. Goal: Increase leafy vegetables daily for folate d. Goal: Increase fiber of all kinds e. Goal: Increase ocean foods intake to at least four times/week for iodine b) Reduce fhg-ipgloedz-wchqz foods NUTRITION MENU PLAN FOR HOME: 1) install [employer] with help from a friend 2) finish [employer]th birthday celebration of the [employer] on 04/28 and then focus on health. NUTRITION MONITORING PLAN/EVALUATION/SURVEILLANCE PLAN: documented in this encounter Plan of Treatment Not on file documented as of this encounter Visit Diagnoses Diagnosis Nutritional counseling documented in this encounter
--- OUTSIDE RECORDS SUMMARY | 2024-03-29 03:36 | XMS_ITS | Encounter Summary ---
[place] [address] Care Team Providers Care Associate Chemist Name Role Phone Unavailable Primary Care Provider Unavailabl e Reason for Referral * Diagnostic Test (Routine) - Closed Specialty Diagnoses / Procedures Referred By Contac t Referred To Contact Radiology Diagnoses Polyradiculopathy Procedures MRI Lumbar Spine wo Contrast (Generic) Chon Snyder MD [facility] [place] [address] [place] [address] Referral ID Status Reason Start Date Expiration Date V isits Requested Visits Authorized [id number] Closed Specialty Service Requested 07/30/2016 07/30/2017 1 1 Encounter Details Date Type Department Care Team (Late st Contact Info) Description 07/30/2016 10:00 AM EST Procedure [place] [address] Chon Snyder MD [facility] [place] [address] Polyradiculopathy; Polyneuropathy Social History Tobacco Use Types Packs/Day Years [...] Sign Reading Time Taken Comments Blood Pressure 172/69 07/30/2016 10:13 AM EST Pulse 73 07/30/2016 10:13 AM EST Temperature - - Respiratory Rate - - Oxygen Saturation - - Inhaled Oxygen Concentration - - Weight 73.9 kg (163 lb) 07/30/2016 10:13 AM EST Height 154.9 cm (5' 1) 07/30/2016 10:13 AM EST reported Body Mass Index 30.8 07/30/2016 10:13 AM EST documented in this encounter Progress Notes * Chon Snyder MD - 07/30/2016 10:00 AM EST Ginger Amador referred for EDX studies by Jacob Foley DO [address] [place] [address] to look for etiology for lower extremity weakness. Report scanned into EDH. EDX shows evidence of mild peripheral neuropathy and widespread chronic neurogenic changes, possibly due to polyradiculopathy, though in fact the diagnosis remains somewhat unclear. She has a hx of b/l CTS and R ulnear neuropathy as well as elevated CPK, so other considerations include MND, IBM, and other chronic or hereditary neuropathies. I recommended MRI lumbar spine and fu in 3 months, unless things worsen in which case she will return sooner. Chon Snyder MD 07/30/2016 documented in this encounter Plan of Treatment Not on file documented as of this encounter Results * MRI Lumbar Spine [...] the clinical situation (Reference- Aziza et al, Spine 2001). Findings: (Prevalence in [...] in context of the clinical situation (Reference- Cristinavik et al, [id number]). Findings: (Prevalence in patients without low back pain), discdegeneration (decreased T2 signal, height loss, bulge) (91%), disc T2-signal loss(83%), disc height loss (56%), disc bulge (64%), disc protrusion (32%), annularfissure (38%). Chon Snyder MD IMG MRI ORDERABLE S documented in this encounter Visit Diagnoses Diagnosis Polyradiculopathy Neuralgia, neuritis, and radiculitis, unspecified Polyneuropathy Unspecified hereditary and idiopathic peripheral neuropathy Polyradiculopathy Neuralgia, neuritis, and radiculitis, unspecified documented in this encounter
--- OUTSIDE RECORDS SUMMARY | 2024-03-29 03:36 | XMS_ITS | Encounter Summary ---
Author Organization [facility] [place] [address] Care Team Providers Care Elevator Constructor Electric Name Role Phone Unavailable Primary Care Provider Unavailabl e Encounter Details Date Type Department Care Team (Latest Contact Info) Description 05/03/2016 - 05/03/2016 11:59 PM EDT Hospital Encounter [place] [phone] Alfonzo Avelar MD [facility] [place] [place] [address] Pain Discharge Disposition: Home Social History Tobacco [...] Comments FILM LIBRARY STORAGE ONLY CT HEAD Routine 05/03/2016 12:00 AM EDT Pain documented in this encounter Results * Film Library- Storage Only CT Head (05/03/2016 12:00 AM EDT) Narrative ALISA - 05/06/2016 2:17 PM EDT This exam is for storage only and is auto-finalizing. Alfonzo Avelar MD G FILM LIBRARY ORD ERABLES [place], [place] documented in this encounter Visit Diagnoses Diagnosis Pain Generalized pain documented in this encounter
--- OUTSIDE RECORDS SUMMARY | 2024-03-29 03:36 | XMS_ITS | Encounter Summary ---
Author Organization [facility] [place] [address] Care Team Providers Care Music Engineer Name Role Phone Unavailable Primary Care Provider Unavailabl e Reason for Visit * Reason Comments Coronary Artery Disease Shortness of Breath Hypertension Follow-up Encounter Details Date Type Department Care Team (Late st Contact Info) Description 03/13/2019 11:20 AM EDT Office Visit Cardiology at [address] [address] Dean Tilley MD [facility] [place] [address] Coronary artery disease, angina presence unspecified, unspecified vessel or lesion type, unspecified whether morongo or transplanted heart; Status post coronary artery bypass grafting; Essential hypertension; LUNA (dyspnea on exertion); Muscle cramps Social [...] Sign Reading Time Taken Comments Blood Pressure 154/69 03/13/2019 11:14 AM EDT Pulse 64 03/13/2019 11:14 AM EDT Temperature - - Respiratory Rate - - Oxygen Saturation 95% 03/13/2019 11:14 AM EDT Inhaled Oxygen Concentration - - Weight 75.6 kg (166 lb 9.6 oz) 03/13/2019 11:14 AM EDT Height 154.9 cm (5' 1) 03/13/2019 11:14 AM EDT Body Mass Index 31.48 03/13/2019 11:14 AM EDT documented in this encounter Progress Notes * Dean Tilley MD - 03/13/2019 11:20 AM EDT Images from the original note were not included. [place] [address] Subjective: Patient ID: Ginger Amador is a 83 y.o. female. Patient Active Problem List Diagnosis ??? 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 10/11/2018 Nuclear stress test at [facility] to 6.5 METS showed predominantly fixed defect in the basal tomid lateral wall, LVEF 59%. 12/19/2018 Echocardiogram showed asymetrical septal thickening, nl LVEF, evidence for diastolic dysfunction with increased filling pressure, aortic valve sclerosis, ? CAD (coronary artery disease) ??? Hypertension ??? LUNA (dyspnea on exertion) ??? Muscle cramps ??? Asthma ??? Actinic keratosis ??? Verruca vulgaris ??? Seborrheic keratosis Since last visit patient overall has been feeling fine. She has had episodic SOB, mostly with dust exposure though. She has occasional right parasternal burning sensation, usually at rest, lasting nomore than a couple of minutes. She has not noticed much leg swelling anymore on her current diuretics (we added chlorthalidone last visit for HTN). She has not checked her BP at home recently as she has packed her monitor away (she is trying to sell her B[employer]B). Review of Systems CardioVascular Pre Appointment Symptom Review 03/12/2019 Angina (chest discomfort) Frequency: None Shortness of [...] Depression: No Anxiety: No Poor sleep: No Family History Problem Relation Age of Onset ??? Colorectal Cancer Daughter ??? Breast Cancer Mother 52 ??? Pancreatic Cancer Father 78 ??? 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 She has 3 children all daughters and 4 grandchildren 2 girls and 2 boys. 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 She enjoys the bed and breakfast, [place],reading. 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 Smoking status: Never Smoker ??? Smokeless tobacco: Never Used Substance Use Topics ??? Alcohol use: Yes Comment: Social Outpatient Medications Marked as Taking for the 03/13/19 encounter (Office Visit) with Dean Tilley MD Medication Sig Dispense Refill ??? chlorthalidone (HYGROTEN) 25 mg Tablet Take 0.5 tablets by mouth daily. 90 tablet 3 ??? spironolactone (ALDACTONE) 25 mg Tablet Take 12.5 mg by mouth daily. 0 ??? alirocumab 75 mg/mL Pen Injector Inject 75 mg subcutaneously every 14 days. (Patient taking differently: Inject 75 mg subcutaneously every 21 days.) 6 mL 3 ??? losartan (COZAAR) 100 mg Tablet Take 100 mg by mouth daily. ??? GLUCOSAMINE/METHYLSULFONYLMETH (GLUCOSAMINE [...] mouth daily. 30 tablet 3 Objective: BP 154/69 Pulse 64 Ht 154.9 cm (5' 1) Wt 75.6 kg (166 lb 9.6 oz) SpO2 95% BMI 31.48 kg/m?? Physical Exam No results found for this or any previous visit (from the past 72 hour(s)). Assessment and Plan: Hypertension High in office here today but less high than last time. As per pt, her BP is usually in 130s-140s when sees her almond pan finisher. I have encouraged her to find her BP cuff again. Will order BMP but pt may not have time today to do it. Particularly if her BP is in the 140 systolic or higher range, would possibly increase amlodipine to 10 mg/day (unless pt is already taking 10 mg/day, she was not sure). Pt will see Dr Foley later this week. Status post coronary artery bypass grafting Overall seems to be doing fine. Lipid being managed by Dr Mclaughlin. Muscle cramps Have improved. LUNA (dyspnea on exertion) With normal proBNP and triggering by dust may primarily be lung related. 20 minutes of this 25 minute visit were spent discussing with the patient the issues above. documented in this encounter Miscellaneous Notes * Assessment & Plan Note - Dean Tilley MD - 03/13/2019 12:16 PM EDT Associated Problem(s): LUNA (dyspnea on exertion) With normal proBNP and triggering by dust may primarily be lung related. * Assessment & Plan Note - Dean Tilley MD - 03/13/2019 12:16 PM EDT Associated Problem(s): Muscle cramps Have improved. * Assessment & Plan Note - Dean Tilley MD - 03/13/2019 12:12 PM EDT Associated Problem(s): Status post coronary artery bypass grafting Overall seems to be doing fine. Lipid being managed by Dr Mclaughlin. * Assessment & Plan Note - Dean Tilley MD - 03/13/2019 12:10 PM EDT Associated Problem(s): Hypertension High in office here today but less high than last time. As per pt, her BP is usually in 130s-140s when sees her almond pan finisher. I have encouraged her to find her BP cuff again. Will order BMP but pt may not have time today to do it. Particularly if her BP is in the 140 systolic or higher range, would possibly increase amlodipine to 10 mg/day (unless pt is already taking 10 mg/day, she was not sure). Pt will see Dr Foley later this week. documented in this encounter Plan of Treatment Not on file documented as of this encounter Visit Diagnoses Diagnosis Coronary artery disease, angina presence unspecified, unspecified vessel or lesion type, unspecified whether morongo or transplanted heart Status post coronary artery bypass grafting Postsurgical aortocoronary bypass status Essential hypertension Unspecified essential hypertension LUNA (dyspnea on exertion) Other dyspnea and respiratory abnormality Muscle cramps Cramp of limb documented in this encounter
--- OUTSIDE RECORDS SUMMARY | 2024-03-29 03:36 | XMS_ITS | Encounter Summary ---
Author Organization [facility] [place] [address] Care Team Providers Care Cathode Washer Name Role Phone Unavailable Primary Care Provider Unavailabl e Encounter Details Date Type Department Care Team (Latest Contact Info) Description 12/22/2018 11:40 AM EDT Office Visit Cardiology at [address] [phone] Marcello Stephens MD [facility] [place] [address] Coronary artery disease involving [place] coronary artery, angina presence unspecified, unspecified whether [place] or transplanted heart; Hyperlipidemia, unspecified hyperlipidemia type Social History Tobacco [...] Sign Reading Time Taken Comments Blood Pressure 170/68 12/22/2018 11:44 AM EDT Pulse 73 12/22/2018 11:44 AM EDT Temperature - - Respiratory Rate - - Oxygen Saturation 100% 12/22/2018 11:44 AM EDT Inhaled Oxygen Concentration - - Weight 75.3 kg (166 lb) 12/22/2018 11:44 AM EDT Height 156.2 cm (5' 1.5) 12/22/2018 11:44 AM ED T Body Mass Index 30.86 12/22/2018 11:44 AM EDT documented in this encounter Progress Notes * Marcello Stephens MD - 12/22/2018 11:40 AM EDT [facility]id [facility]-Follow Up Visit ID/PMH The patient is a 82 y.o. followed by Jacob [...] and breakfast, [place], reading. 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 Present Illness Ginger Amador is seen at the request of Dr. Jacob Foley for follow-up management of dyslipidemia, specifically elevated LDL cholesterol in the setting of coronary artery disease and a history of muscle weakness, myalgia, and elevated CK while on rosuvastatin (Crestor). She was managed by neurology here at [facility] for her muscle weakness, myalgia and elevation in CK. With discontinuation of rosuvastatin her symptoms improved substantially. She was tried on other statins but did not tolerate these. She presents today to discuss the possibility of alternative therapies. In Ginger's words I would rather 10 years earlier and go on another statin. At her initial visit with me in September I asked Ginger to begin ezetimibe, a cholesterol absorption inhibitor with the mechanism of action unlike statins. She was also reporting shortness of breath with exertion. This is been her previous anginal symptom. Fortunately, a stress test obtained in earlyOctober was negative in terms of ischemia. 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 Since her last visit she has also had an echocardiogram which revealed diastolic dysfunction - given her complaints of significant SOB, I wonder if she had HFpEF. Ginger returns today to assess her response to ezetimibe and dietary changes. She has lost 5 pounds. Diet: Breakfast: 1/2 nepalese muffin with avocado small amt of almond butter / cut down of eggs 4 per weekalso using egg beaters Lunch: may skip / roll-up turkey / roast beef and cheese (3-4 times a week) Dinner: fish, chicken without skin, vegetables - steamed with herbs Snacks: date bar (can last a week) or rice cakes with almond butter or avocado Alcohol - rare ROS General: As above c/o of marked SOB with minimal exertion Cardiac: As above MSK: No side effects from ezetimibe Medications Current Outpatient Medications Medication Sig Dispense Refill ??? spironolactone (ALDACTONE) [...] mouth daily. 30 tablet 3 ??? alirocumab 75 mg/mL Pen Injector Inject 75 mg subcutaneously every 14 days. 6 mL 3 No current facility-administered medications for this visit. Allergies Bacitracin; Gabapentin; Gramicidin d; Ibuprofen; Lidocaine; Neomycin sulfate; Neosporin [hydrocortisone]; Polymyxin b; Polymyxin b sulfate; Onkrwnz-ukj-yxl reductase inhibitors; Sulfa (sulfonamide antibiotics); and Wheat Physical Exam General: 82 year old woman with a BMI of 30.86 VS: BP 170/68 Pulse 73 Ht 156.2 cm (5' 1.5) Wt 75.3 kg (166 lb) SpO2 100% BMI 30.86 kg/m?? Lungs: Clear no evidence of CHF Heart: S1S2, No MGR, RRR (I did not appreciate a systolic murmur) Abd: Soft and nontender. Psych: Appropriate affect. Labs Total Cholesterol 168 mg/dL Triglycerides 75 mg/dL HDL-C: 56 mg/dL LDL-C: 96 mg/dL Assessment Ginger's LDL-C has not improved substantially with ezetimibe. I suspect her HDL-C improvement is morerelated to her 5 pound weight loss. Although she is tolerating the ezetimibe, I have suggested she discontinue the ezetimibe and begin alirocumab 75 mg subcutaneously every 14 days. We discussed the MOA, how it is stored (in the refridge), and how to prepare for injection (take alirocumab injectionpen out of the refridge 30 minutes before the injection). We also discussed the cost of alirocumab.Ginger told me that the copay might present a barrier to taking the medication. I assured her the pharmacy would be in touch and would discuss this with her prior to her committing to the alirocumab. With regard to Ginger's blood pressure and her echocardiogram it appears that she has diastolic dysfunction perhaps secondary to her HTN. She is on spironolactone, amlodipine, and losartan and still has a BP of 170/68. She reports that her BP is quite variable at home but is often high. She is also co mplaining of significant SOB. I suspect some of this is due to deconditioning but may also be due to Heart Failure with Preserved Ejection Fraction (HFpEF). I have asked Dr. Dean Tilley to see her for evaluation and treatment. I will plan to see her in follow-up in 3 months for lipid follow-up. She will see Dr. Tilley with in a few weeks. Plan ?? Medication changes: discontinue ezetimibe, begin alirocumab ?? Investigations: labs and a visit I 3 months (03/30/19) ?? Counseling: I explained my impression and answered all Ginger's questions. Follow up 03-30-19 This visit was 25 minutes in length of which 20 minutes were spent in counseling MARCELLO STEPHENS MD 12/24/2018 CC: Jacob Foley DO CC: Dean Tilley MD documented in this encounter Plan of Treatment Not on file documented as of this encounter Visit Diagnoses Diagnosis Coronary artery disease involving [place] coronary artery, angina presence unspecified, unspecified whether [place] or transplanted heart Hyperlipidemia, unspecified hyperlipidemia type documented in this encounter
--- OUTSIDE RECORDS SUMMARY | 2024-03-29 03:36 | XMS_ITS | Encounter Summary ---
[place] [address] Care Team Providers Care Coordinator Volunteer Services Name Role Phone Unavailable Primary Care Provider Unavailabl e Encounter Details Date Type Department Care Team (Late st Contact Info) Description 08/06/2016 [place] [address] Chon Snyder MD [facility] [place] [address] Social History Tobacco Use Types Packs/Day Years [...]
--- OUTSIDE RECORDS SUMMARY | 2024-03-29 03:36 | XMS_ITS | Encounter Summary ---
[place] [address] Care Team Providers Care Circulation Clerk Name Role Phone Unavailable Primary Care Provider Unavailabl e Encounter Details Date Type Department Care Team (Late st Contact Info) Description 02/22/2019 [place] [phone] Pilo Griffin [facility] Social History Tobacco Use Types Packs/Day Years [...] encounter Miscellaneous Notes * Telephone Encounter - Pilo Griffin [facility] - 02/22/2019 12:15 PM EDT Spoke with Ginger today - originally calling regarding refill reminder for Praluent. Patient did not want to refill prescription now as she still had an extra pen on hand as she has been spacing doses out to every 3-4 weeks versus q14 days as prescribed. Efficacy as a function of adherence to every two week injection schedule was explained. Patient countered with concerns over long-term ability to pay for her medication, currently paying ~$159 per fill. It is also important to note that she is still in the initial benefit phase of her Medicare plan and costs will certainly rise once she enters the coverage gap in the near future. Patient was under the impression two to three doses would have life-long effects on her cholesterol levels. She also asked me this same question during her initialconsult when I explained that Praluent would become a maintenance medication once initiated and would be taken for the foreseeable future. She will discuss the future of her Praluent use on her 03/30/[address] Mclaughlin. She asked for a call back in three weeks for another refill reminder call. documented in this encounter Plan of Treatment Not on file documented as of this encounter Visit Diagnoses Not on filedocumented in this encounter
--- OUTSIDE RECORDS SUMMARY | 2024-03-29 03:36 | XMS_ITS | Encounter Summary ---
Author Organization [facility] [place] [place] [address] Care Team Providers Care Client Service Professional Name Role Phone Unavailable Primary Care Provider Unavailabl e Encounter Details Date Type Department Care Team (Latest Contact Info) Description 03/30/2019 11:40 AM EDT Office Visit Cardiology at [address] [phone] Marcello Stephens MD [facility] [place] [address] Hyperlipidemia, unspecified hyperlipidemia type; Coronary artery disease involving [place] coronary artery, angina presence unspecified, unspecified whether [place] or transplanted heart Social History Tobacco Use [...] Sign Reading Time Taken Comments Blood Pressure 170/55 03/30/2019 11:24 AM EDT Pulse 63 03/30/2019 11:24 AM EDT Temperature - - Respiratory Rate - - Oxygen Saturation 98% 03/30/2019 11:24 AM EDT Inhaled Oxygen Concentration - - Weight 72.6 kg (160 lb) 03/30/2019 11:24 AM EDT Height 154.9 cm (5' 1) 03/30/2019 11:24 AM EDT Body Mass Index 30.23 03/30/2019 11:24 AM EDT documented in this encounter Progress Notes * Marcello Stephens MD - 03/30/2019 11:40 AM EDT [facility] Lipid [...] 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 Present Illness Ginger Amador??is seen at the request of Dr. Jacob Foley??for follow-up management of dyslipidemia, specifically elevated LDL cholesterol in the setting of coronary artery disease and a historyof muscle weakness, myalgia, and elevated CK while on rosuvastatin (Crestor). ??She was managed by neurology here at [facility] for her muscle weakness, myalgia and elevation in CK. ??With discontinuation of rosuvastatin her symptoms improved substantially. ??She was tried on other statins but did not tolerate these. ??She presents today to discuss the possibility of alternative therapies. ??In Ginger's words I would rather 10 years earlier and go on another statin. Initially, I put her on ezetimibe which did not result in any significant reduction in her LDL. We stopped her ezetimibe and switched her to alirocumab which has brought her LDL down to 82 mg/dL, as can be seen below. Ginger is here to discuss whether or not she should be on both ezetimibe and alirocumab. It is known that the combination of these 2 agents is more powerful than either one of them alone. Since her last visit she has seen Dean Tilley MD in cardiology to discuss her recent shortness of breath which he believes is likely pulmonary in nature. ROS General: still some SOB but better if she takes her inhaler / c/o profound fatigue a few times a week - requires a nap Cardiac: every once in a while she has - chest burning MSK: occ hip discomfort Medications Current Outpatient Medications Medication Sig Dispense Refill ??? chlorthalidone (HYGROTEN) [...] by mouth daily. 30 tablet 3 ??? ezetimibe (ZETIA) 10 mg Tablet Take 1 tablet by mouth daily. (Patient not taking: Reported on 03/13/2019) 90 tablet 3 No current facility-administered medications for this visit. Allergies Bacitracin; Gabapentin; Gramicidin d; Ibuprofen; Lidocaine; Neomycin sulfate; Neosporin [hydrocortisone]; Polymyxin b; Polymyxin b sulfate; Soy; Xbervth-kjr-fbj reductase inhibitors; Sulfa (sulfonamide antibiotics); and Wheat Physical Exam General: 83 year old with BMI of 30 VS: BP 170/55 Pulse 63 Ht 154.9 cm (5' 1) Wt 72.6 kg (160 lb) SpO2 98% BMI 30.23 kg/m?? Lungs: Clear Heart: S1S2, No MGR, RRR Abd: Soft and nontender. Psych: Appropriate affect. Labs drawn 03/15/2019 Total cholesterol 148 mg/dL Triglycerides 80 mg/dL HDL cholesterol 50 mg/dL LDL cholesterol 82 mg/dL Blood sugar 105 mg/dL Hemoglobin A1c 6.3% Assessment Today I am recommending that Ginger add ezetimibe to her current therapy with alirocumab. She will return in 12 weeks we will be able to assess whether or not this combination is able to bring her LDL down sufficiently if her LDL has not improved substantially I will question the value of continuing with the alirocumab. The alirocumab has served to lower her LDL from 95 mg/dL to its current level of 82 milligrams per deciliter. She has a very high co-pay for this medication and I am not sure if the 13 mg/dL reduction is worth the cost. Today we also focused on dietary changes Ginger met with our registered dietitian who is made multiple suggestions regarding restriction of saturated fat and weight loss. The weight loss will benefit her blood sugar which has been in the prediabetes range. Finally, it is notable that Ginger's blood pressure is elevated today. She reports that she forgot totake her blood pressure medicines this morning as she was rushing to get to this appointment. She notes that her blood pressure was well controlled recently at Dr. Foley's office. At her recent visit with Dr. Matthieu Tilley chlorthalidone was added for her blood pressure apparently to good effect. At the present she will continue the chlorthalidone, the Spironolactone, and the losartan. She will monitor her blood pressure at home and if she continues to have elevations she will be in touch with me. Plan ?? Medication changes: Resume ezetimibe continue alirocumab ?? Investigations: Labs and a visit July 27, 2019 ?? Counseling: I explained my impression and answered all Ginger's questions. Follow up July 27, 2019 MARCELLO STEPHENS MD 03/30/2019 This visit was 25 minutes in length of which 20 minutes were spent in counseling CC: Jacob Foley DO documented in this encounter Plan of Treatment Not on file documented as of this encounter Visit Diagnoses Diagnosis Hyperlipidemia, unspecified hyperlipidemia type Coronary artery disease involving [place] coronary artery, angina presence unspecified, unspecified whether [place] or transplanted heart documented in this encounter
--- OUTSIDE RECORDS SUMMARY | 2024-03-29 03:37 | XMS_ITS | Encounter Summary ---
Author Organization [place] [id number] Care Team Providers Care Outsole Cementer Name Role Phone Unavailable Primary Care Provider Unavailabl e Reason for Visit * Auth/Cert - Closed Specialty Diagnoses / Procedures Referred By Contfrederic t Referred To Contact Diagnoses ASCVD Procedures CARDIAC CATHETERIZATION Referral ID Status Reason Start Date Expiration Date Visits Re quested Visits Authorized [id number] Closed 1 1 Encounter Details Date Type Department Care Team (Latest Contact Info) Description 07/02/2015 2:20 PM EST Clinical [place] [address] Coronary artery 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 Social History Tobacco Use Types Packs/Day Years [...] - Inhaled Oxygen Concentration - - Weight - - Height 154.9 cm (5' 0.98) 07/02/2015 2:21 PM ES T Body Mass Index - - documented in this encounter Progress Notes * Huang Espino RN - 07/02/2015 2:58 PM EST PAT questionnaire reviewed with patient while in Pre Admission testing. Patient states she has had anesthesia in the past without complications. Pre-operative instruction booklet reviewed with patient. Reviewed importance of pain control and cough and deep breathing exercise during the post-operative period. Instructed patient on use of Hibiclens soap to shower with the night before surgery or the morning of surgery. Pt verbalizes good understanding of all information reviewed. PLAN Testing: Blood work, T&S, CXR done today Special medication instructions: none Procedure date: 07-24-15 per patient documented in this encounter Plan of Treatment Not on file documented as of this encounter Procedures Procedure Name Priority Date/Time Associated Diagnosis Comments XR CHEST PA AND LATERAL Routine 07/02/2015 3:03 PM EST Coronary artery 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 documented in this encounter Results * XR Chest Routine PA & Lateral (07/02/2015 3:03 PM EST) Anatomical Region Laterality Modality Chest N/A Digital Radiogra phy Impressions 07/02/2015 4:04 PM EST IMPRESSION: Borderline size of the heart. I have personally reviewed the image(s) and the residents interpretation and agree with the findings, Lily Ballesteros at 07/02/2015 4:04 PM Narrative 07/02/2015 4:04 PM EST EXAMINATION: XR CHEST ROUTINE PA AND LATERAL CLINICAL HISTORY: pre op TECHNIQUE: Frontal and lateral views of the chest COMPARISON: None FINDINGS: The lungs are clear. Borderline size of the heart. There are no pleural effusions or pneumothorax. Procedure Note Lily Garza MD - 07/02/2015 EXAMINATION: XR CHEST ROUTINE PA AND LATERAL CLINICAL HISTORY: pre op TECHNIQUE: Frontal and lateral views of the chest COMPARISON: None FINDINGS: The lungs are clear. Borderline size of the heart. There are no pleural effusions or pneumothorax. IMPRESSION IMPRESSION: Borderline size of the heart. I have personally reviewed the image(s) and the residents interpretationand agree with the findings, Lily Ballesteros at 07/02/2015 4:04PM Tavon Chan MD IMG DX ORDERABLES documented in this encounter Visit Diagnoses Diagnosis Coronary artery 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 documented in this encounter
--- OUTSIDE RECORDS SUMMARY | 2024-03-29 03:37 | XMS_ITS | Encounter Summary ---
Author Organization [facility] Address 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 [address] ASCVD (arteriosclerotic cardiovascular disease) Social History Tobacco Use Types Packs/Day Years [...] Sign Reading Time Taken Comments Blood Pressure 148/100 07/01/2015 8:13 AM EST Pulse 74 07/01/2015 8:13 AM EST reg Temperature - - Respiratory Rate - - Oxygen Saturation 98% 07/01/2015 8:1 3 AM EST on room air Inhaled Oxygen Concentration - - Weight 75.6 kg (166 lb 9.6 oz) 07/01/20 15 8:13 AM EST Height 154.9 cm (5' 1) 07/01/2015 8:13 AM EST Body Mass Index 31.48 07/01/2015 8:13 AM EST documented in this encounter Progress Notes * Tavares Sarabia PA - 07/01/2015 9:25 AM EST Pre-Cardiac Catheterization Assessment History: Ginger Amador here to be evaluated prior to planned or possible diagnostic/?therapeutic cardiac catheterization. She recently had a nuclear stress test to workup the development of easily inducible exertional shortness of breath. This was performed at [facility]. It was a Regadenosen study. Perfusion imaging showed a moderate sized, severely intense, fully reversible defect involving the lateral wall. Her ejection fraction was estimated to be 56%. There were no regional wall motion abnormalities. She reports that walking up even a slight hill causes fairly significant shortness of breath. She estimates caring 5 pounds upstairs is very difficult due to shortness of breath. She has a history ofmild hypertension. No diabetes. She has never smoked. Her daughter had an CT at age 50 and was treated with a stent. Past surgical history: bilateral knee replacements and breast reduction. She was referred for consideration catheterization by Dr. Fortino Rees. (Covering for Dr. Foley). Her med list below is up to date with the exception of metoprolol 50 mg daily prescribed yesterday which she has not yet started. She does not use aspirin. I've asked that an aspirin 325 mg given to her upon arrival to same day surgery. No current facility-administered medications on file prior to visit. Current Outpatient Prescriptions on File Prior to Visit Medication Sig Dispense Refill ??? amLODIPine (NORVASC) 5 mg tablet Take 5 mg by mouth daily. ??? CIS Free Text Med - Albuterol 2 Puff(s), Inh, Four times daily Four times daily ??? fluticasone-salmeterol (ADVAIR DISKUS) 250-50 mcg/dose diskus inhaler 1 Disk(s), Inh, Twice daily ??? [DISCONTINUED] lisinopril-hydrochlorothiazide (PRINZIDE;ZESTORETIC) 20-12.5 mg per tablet 1 Tablet(s), PO, Once daily ??? [DISCONTINUED] allopurinol (ZYLOPRIM) 100 mg tablet Allergies Allergen Reactions ??? Bacitracin ??? Gramicidin D ??? Lidocaine ??? Neomycin Sulfate ??? Neosporin [Hydrocortisone] ??? Polymyxin B ??? Polymyxin B Sulfate ??? Sulfa (Sulfonamide Antibiotics) Patient Active Problem List Diagnosis Code ??? Verruca vulgaris B07.9 ??? Seborrheic keratosis L82.1 ??? Actinic keratosis L57.0 ??? Abnormal stress test R94.39 Coronary Risk factors: Smoking: Never Hypertension: Mild Diabetes: Negative Lipid disorder: Unknown Family history: Daughter has stent Known or suspected valvular heart disease: None Ventricular function known: 56% Functional testing results: As above Labs: pending Physical Exam: She appears well, in no apparent distress. Alert and oriented times three, pleasant and cooperative. Filed Vitals: 07/01/15 0813 BP: 148/100 Pulse: 74 HEENT: No JVD or carotid distortions. Lungs: Clear to A+P Cor: NSR, S1 and S2 physiologic. No precordial heaves or thrills. PMI unremarkable. No audible murmur, rub or gallop. Abd: soft, nontender, no organomegaly or bruits Ext: Pedal pulses are dopplerable, no edema. Jose Angel's test normal (right) Neuro: physiologic Assessment: Progressive exertional shortness of breath Evidence of circumflex territory ischemia Plan: Elective cardiac catheterization and possible PCI. 1. A discussion was held reviewing the benefits and attendant risks of diagnostic or therapeutic catheterization. The risks include, but are not limited to: stroke, , myocardial infarction, bleeding, limb loss, infection, dye reaction, vascular injury, arrhythmias. If an intervention is performed, risks would include the potential for vessel closure, need for emergency CABG, subacute closure, restenosis. The patient appears to understand these risks and benefits. The informed consent was signed. 2. Laboratory screening will be obtained before the procedure as ordered. 3. The patient's medications, NPO status after MN and other details of the planned procedure were discussed. Questions were addressed. 4. Follow up will be dependent on the results of the cardiac catheterization. documented in this encounter Plan of Treatment Not on file documented as of this encounter Procedures Procedure Name Priority Date/Time Associated Diagnosis Comments CARDIAC CATHETERIZATION Routine 07/01/2015 1:07 PM EST ASCVD (arteriosclerotic cardiovascular disease) documented in this encounter Results * CARDIAC CATHETERIZATION (07/01/2015 1:07 PM EST) Anatomical Region Laterality Modality Other Narrative 07/01/2015 1:23 PM EST ?[facility] ? Cardiac Catheterization/Intervention Report ? Patient Name: Perry, Ginger ??L. ? Procedure Date: 07/01/2015 ? A #: [id number] ? Primary Physician: Chon Lundberg ? Case #: [id number] ? File Name: [id number] ? Catheterization Order Number: [id number] ? [facility] ? Final Report [place], [place] ? Patient Name: ? Ginger ??L. Warnaar ? ID#: ?[id number] ? : ?1935 ? Procedure Date: ? July 01, 2015 ?Case #: ? [id number] ? Room: ? 2 ? Case Physician: ? Chon Lundberg M.D. ?Start: ?11:50 ?Fellow: ? Lulu Perez M.D. ? Admission: ??07/01/2015 ? Procedures: ?* Coronary Angiography ?* Left Heart Catheterization ?* Vascular Closure Device Deployment ?* Access Site Angiography ? History ?Ginger ??James Amador is a 79 year old woman. She has hypertension and a ?family history of coronary artery disease. The patient has ?hypercholesterolemia managed with lipid therapy. She has atypical ?symptoms for coronary artery disease and stable angina. The patient has a ?history of dyspnea with NYHA functional class III. She also has a history ?of an abnormal stress test. Prior to the initiation of this procedure, ?the patient was designated as ASA Class III. ? Patient Status at Catheterization: ?The patient presented with: stable angina (w/i 42 days). [place] ?Cardiovascular Society angina class was III. A SPECT stress test was ?performed and results were Positive and High Risk ischemia assessment. ? Technique: ?A 6Fr sheath was inserted in the right femoral artery utilizing the ?Seldinger technique. The left coronary artery was injected utilizing a ?6Fr JL 4 catheter. A 6Fr AR modified catheter was used to inject the ?right coronary artery. 2,000 units of heparin were administered. A total ?of 200cc of Omnipaque were opened, 105cc of Omnipaque were administered ?and 95cc of Omnipaque were wasted. Radiation: Fluoro time was 15.3 ?minutes, dose area product was 72,689 mGYcm2 and air kerma was 1,221 mGY. ?The patient received the following medications prior to and during the ?procedure: Unfractionated Heparin (any). ? Hemodynamics: ?Left Heart Pressures ? Resting: ? Syst Diast ? EDP ?a ?v ? m ?Ao 208 ?? 83 ?131 ?LV 161 ? 13 ?Comments: ??LV Pullback: ??LV 172, EDP 15. ??Ao 168/59 (103). ? Coronary Angiography: ?Dominance: Right ?Left Main ? The left main was normal. ?Left Anterior Descending ? There was mild diffuse disease of the entire vessel segment of the ? left anterior descending artery (LAD). ??The mid segment of the LAD ? had a diffuse 60% stenosis. ??The distal vessel was large. ? There were multiple discrete 80% stenoses of the mid segment of the ? first diagonal branch (Diagonal 1) of the LAD. ??Distal flow was ? normal. ??The distal vessel was moderate in size. ?Left Circumflex ? There was mild diffuse disease of the entire vessel segment of the ? left circumflex artery (LCX). ??The proximal segment of the LCX had a ? single discrete total occlusion. ??Distal flow was via collaterals ? from the LAD and collaterals from the RCA. ??The distal vessel was ? poorly visualized. ?Right Coronary Artery ? There was mild diffuse disease of the entire vessel segment of the ? right coronary artery (RCA). ??The ostial segment of the RCA had a ? single discrete 60% stenosis. ? Vascular Access: ?Vascular Access Angiogram: ? A selective angiogram at the right femoral artery revealed no ? significant obstructive disease. ?Vascular Access Management: ? A 6 Fr Perclose was deployed at the right femoral artery access ? site. This device was successful. ? Conclusions: ?* Three vessel coronary artery disease (LAD, LCX and RCA) ? Complications/Events: ?The patient had no complications during these procedures. ? Recommendations: ?Based upon the results of this procedure, it was recommended that ?coronary artery bypass surgery be considered. ?The attending physician was present for the entire procedure. ?Dr. Chon Lundberg M.D. performed the coronary angiography, access site ?angiography, left heart catheterization and vascular closure device. ? Chon Lundberg M.D. ? Electronically Signed by: Chon Lundberg M.D. ? Report Finalized: 07/01/2015 ??13:09 ? Procedure Note Chon Lundberg II, MD - 07/01/2015 [facility] Cardiac Catheterization/Intervention Report Patient Name: Ginger Amador Procedure Date: 07/01/2015 A #: [id number] Primary Physician: Chon Lundberg Case #: [id number] File Name: [id number] Catheterization Order Number: [id number] [facility] FinalReport [place], [place] Patient Name: Ginger Amador ID#:[id number] :1935 Procedure Date: July 01, 2015 Case #: [id number] Room: 2 Case Physician: Chon Lundberg M.D. Start: 11:50 Fellow: Lulu Perez M.D. Admission:07/01/2015 Procedures: * Coronary Angiography * Left Heart Catheterization * Vascular Closure Device Deployment * Access Site Angiography History Ginger Amador is a 79 year old woman. She has hypertension and a family history of coronary artery disease. The patient has hypercholesterolemia managed with lipid therapy. She has atypical symptoms for coronary artery disease and stable angina. The patienthas a history of dyspnea with NYHA functional class III. She also has ahistory of an abnormal stress test. Prior to the initiation of thisprocedure, the patient was designated as ASA Class III. Patient Status at Catheterization: The patient presented with: stable angina (w/i 42 days). [place] [employer] Society angina class was III. A SPECT stress test was performed and results were Positive and High Risk ischemiaassessment. Technique: A 6Fr sheath was inserted in the right femoral artery utilizing the Seldinger technique. The left coronary artery was injected utilizinga 6Fr JL 4 catheter. A 6Fr AR modified catheter was used to inject the right coronary artery. 2,000 units of heparin were administered. Atotal of 200cc of Omnipaque were opened, 105cc of Omnipaque wereadministered and 95cc of Omnipaque were wasted. Radiation: Fluoro time was 15.3 minutes, dose area product was 72,689 mGYcm2 and air kerma was 1,221mGY. The patient received the following medications prior to and duringthe procedure: Unfractionated Heparin (any). Hemodynamics: Left Heart Pressures Resting: Syst Diast EDP a v m Ao 208 83 131 LV 161 13 Comments: LV Pullback: LV 172, EDP 15. Ao 168/59 (103). Coronary Angiography: Dominance: Right Left Main The left main was normal. Left Anterior Descending There was mild diffuse disease of the entire vessel segment ofthe left anterior descending artery (LAD). The mid segment of theLAD had a diffuse 60% stenosis. The distal vessel was large. There were multiple discrete 80% stenoses of the mid segment ofthe first diagonal branch (Diagonal 1) of the LAD. Distal flow was normal. The distal vessel was moderate in size. Left Circumflex There was mild diffuse disease of the entire vessel segment ofthe left circumflex artery (LCX). The proximal segment of the LCXhad a single discrete total occlusion. Distal flow was viacollaterals from the LAD and collaterals from the RCA. The distal vesselwas poorly visualized. Right Coronary Artery There was mild diffuse disease of the entire vessel segment ofthe right coronary artery (RCA). The ostial segment of the RCA hada single discrete 60% stenosis. Vascular Access: Vascular Access Angiogram: A selective angiogram at the right femoral artery revealed no significant obstructive disease. Vascular Access Management: A 6 Fr Perclose was deployed at the right femoral artery access site. This device was successful. Conclusions: * Three vessel coronary artery disease (LAD, LCX and RCA) Complications/Events: The patient had no complications during these procedures. Recommendations: Based upon the results of this procedure, it was recommended that coronary artery bypass surgery be considered. The attending physician was present for the entire procedure. Dr. Chon Lundberg M.D. performed the coronary angiography, accesssite angiography, left heart catheterization and vascular closure device. Chon Lundberg M.D. Electronically Signed by: Chon Lundberg M.D. Report Finalized: 07/01/2015 13:09 Doug Mata MD CARDIAC CATH ORDERAB LES * Prothrombin Time (07/01/2015 9:26 AM EST) Prothrombin Time 14.0 12.0 - 15.0 sec [facility] Comment: Transfusion Committee Guidelines: INR less than 2.0, PTT less than OR equal to 43.5 seconds, or Fibrinogen greater than or equal to 100 mg/dl indicate adequate procoagulant activity for hemostasis in patients without underlying bleeding disorders. International Normalization Ratio 1.1 0.9 - 1.1 [facility] Blood specimen (specimen) 07/01/2015 9:26 AM EST 07/01/2015 9:31 AM EST Narrative Resulting Agency Comment Spec In Lab Doug Mata MD HEMATOLOGY ORDERABLE S [facility] * Basic Metabolic Panel (non-fasting) (07/01/2015 9:26 AM EST) Glucose 107 65 - 199 mg/dL [facility] Comment:Diabetes: >=200 mg/d L plus symptoms Blood Urea Nitrogen 11 8 - 18 mg/dL [facility] Creatinine 0.80 0.70 - 1.20 mg/dL [facility] Comment: Please note that the pediatric reference intervals supplied above were not validated at [facility]. Results from pediatric patients should be interpreted in conjunction to the patient's age, height and muscle mass. Sodium 140 135 - 145 mmol/L [facility] Potassium 4.2 3.5 - 5.0 mmol/L [facility]EN[facility] Comment: Please note: ??Patients with WBC >100,000 may have falsely elevated Potassium levels. ??For accurate Potassium quantification in these patients send serum separator tube (gold top) for subsequent determinations. ??Contact the Clinical Chemistry Laboratory if there are any questions. Chloride 102 98 - 107 mmol/L [facility] Carbon Dioxide 25 22 - 31 mmol/L [facility]EN[facility] Anion Gap 13 5 - 15 mmol/L [facility]EN[facility] Calcium 9.3 8.5 - 10.5 mg/dL [facility] MILLENNIUM Est [...] the following links into your internet browser. [email or web address] [email or web address] Blood specimen (specimen) 07/01/2015 9:26 AM EST 07/01/2015 9:31 AM EST Narrative Resulting Agency Comment Spec In Lab Doug Mata MD CHEMISTRY ORDERABLES [facility] documented in this encounter Visit Diagnoses Diagnosis ASCVD (arteriosclerotic cardiovascular disease) Unspecified cardiovascular disease ASCVD (arteriosclerotic cardiovascular disease) Unspecified cardiovascular disease documented in this encounter
--- OUTSIDE RECORDS SUMMARY | 2024-03-29 03:37 | XMS_ITS | Encounter Summary ---
Author Organization [facility] [place] [address] Care Team Providers Care Production Support Engineer Name Role Phone Unavailable Primary Care Provider Unavailabl e Reason for Visit * Reason Comments Follow-up Encounter Details Date Type Department Care Team (Late st Contact Info) Description 03/30/2013 11:30 AM EDT Office Visit Dermatology [address] [place] [address] Aj Albright MD [address], [place] [address] Actinic keratosis (Primary Dx) Social History Tobacco Use Types Packs/Day Years Used Date Smoking Tobacco: Former Sex and Gender Information Value Date Recorded Sex Assigned at Not on file Gender Identity Not on file Sexual Orientation Not on file documented as of this encounter Progress Notes * Aj Albright MD - 03/30/2013 12:09 PM EDT Problem is followup status post electrodesiccation of verruca vulgaris. Ginger follows up and has had good healing of the right index finger site. Physical examination reveals no remaining verruca, just slight dimpling at the C and D site with some slight remaining crusting scabbing. She does have an actinic on the left saddle of the nose. Assessment and Plan: 1. Verruca vulgaris, resolved, right index finger. a. Patient reassured. b. No treatment necessary. 2. Actinic keratosis, left saddle of nose. a. LN2 times two applied to site. Return to clinic if this does not resolve within a week or two. It has been rather sore and bothersome to the patient for a number of months. COPY: Jacob Foley D.O. documented in this encounter Plan of Treatment Not on file documented as of this encounter Visit Diagnoses Diagnosis Actinic keratosis- Primary documented in this encounter
--- OUTSIDE RECORDS SUMMARY | 2024-03-29 03:37 | XMS_ITS | Clinical Summary ---
Author Organization [facility] Address [address] [place] [address] Care Team Providers Care Chairperson Anesthesiology Name Role Phone Jacob Foley Primary Care Provider [phone] Social History Tobacco Use Types Packs/Day Years Used Date Smoking Tobacco: Never Assessed Interpersonal Safety Answer Date Record ed Physically Hurt Never 03/17/2020 Verbally Threaten Not on file 03/17/2020 Sex and Gender Information Value Date Recorded Sex Assigned at Not on file Gender Identity Not on file Sexual Orientation Not on file Plan of Treatment Health Maintenance Due Date Last Done Comments RSV Immunization ( o r 60+ Years) (1 - 1-dose 60+ series) 1997 Fall Risk Screening 2002 COVID-19 Vaccine (2022- season) 2023 Care Teams Chairperson Anesthesiology Relationship Specialty Start Date End Date Jacob Foley DO [address] [place] [address] [place] [address] PCP - General 01/14/20
--- OUTSIDE RECORDS SUMMARY | 2024-03-29 03:37 | XMS_ITS | Encounter Summary ---
Author Organization [facility] Address [address] [place] [address] Care Team Providers Care Lithographic Photographer Apprentice Name Role Phone Jacob Foley Primary Care Provider [phone]- [phone] Encounter Details Date Type Department Care Team (Late st Contact Info) Description 01/14/2023 Lab Requisition [facility] Pathology & Laboratory Medicine - [facility] [address] [place] [address] Outr Resulting Lab, Provider Social History Tobacco Use Types Packs/Day Years [...] Procedure Name Priority Date/Time Associated Diagnosis Comments LYME AB Routine 01/13/2023 16:35 EDT documented in this encounter Results * LYME AB (01/13/2023 16:35 EDT) Lyme Ab Negative Negative 01/17/2023 10:09 EDT [facility] Blood VENOUS BLOOD / Unknown 01/13/2023 16:35 EDT 01/14/2023 17:21 EDT Provider Outr Resulting Lab IMMUNOLOGY A ND SEROLOGY ORDERABLES [facility] [address] [place] [address] documented in this encounter Visit Diagnoses Not on filedocumented in this encounter Care Teams Lithographic Photographer Apprentice Relationship Specialty Start Date End Date Jacob Foley DO [address] [place] [address] [place] [id number] PCP - General 01/14/20 documented as of this encounter
--- OUTSIDE RECORDS SUMMARY | 2024-03-29 03:37 | XMS_ITS | Encounter Summary ---
[place] [address] Care Team Providers Care Security Operations Analyst Name Role Phone Unavailable Primary Care Provider Unavailabl e Reason for Visit * Auth/Cert - Closed Specialty Diagnoses / Procedures Referred By Contfrederic t Referred To Contact Diagnoses ASCVD Procedures CARDIAC CATHETERIZATION Referral ID Status Reason Start Date Expiration Date Visits Re quested Visits Authorized [id number] Closed 1 1 Encounter Details Date Type Department Care Team (Latest Contact Info) Description 07/01/2015 9:05 AM EST [place] [address] ASCVD (arteriosclerotic cardiovascular disease) Social History Tobacco [...] Procedure Name Priority Date/Time Associated Diagnosis Comments HEMOGRAM Routine 07/01/2015 9:26 AM EST ASCVD (arteriosclerotic cardiovascular disease) DIFFERENTIAL, AUTOMATED Routine 07/01/2015 9:26 AM EST ASCVD (arteriosclerotic cardiovascular disease) PROTHROMBIN TIME Routine 07/01/2015 9:26 AM EST ASCVD (arteriosclerotic cardiovascular disease) CBC (WITH DIFF) Routine 07/01/2015 9:26 AM EST ASCVD (arteriosclerotic cardiovascular disease) BASIC METABOLIC PANEL Routine 07/01/2015 9:26 AM EST ASCVD (arteriosclerotic cardiovascular disease) documented in this encounter Results * (ABNORMAL) Differential, Automated (07/01/2015 9:26 AM EST) Neutrophil % 78.9 % C[facility] MILLENNIUM Neutrophil Absolute 7.63(H) 1.50 - 6.30 x10(3)/mc L CERNER MILLENNIUM Lymph % 15.5 % CERNER MILLENNIUM Lymphocytes Abs 1.5 1.0 - 3.6 x10(3)/mc L CERNER MILLENNIUM Monocyte % 3.7 % CERNER MILLENNIUM Monocyte Abs 0.4 0.2 - 1.0 x10(3)/mc L CERNER MILLENNIUM Eos % 1.7 % CERNER MILLENNIUM Eosinophils Abs 0.2 0.0 - 0.5 x10(3)/mc L CERNER MILLENNIUM Basophil % 0.1 % CERNER MILLENNIUM Baso Absolute 0.0 0.0 - 0.2 x10(3)/mc L CERNER MILLENNIUM Immature Gran % 0.10 % [facility] MILLENNIUM Comment: Immature granulocytes(IG's)percentage and absolute count will include metamyelocytes, myelocytes, and promyelocytes. Blood smears from CBCs yielding IG's will be scanned manually for concordance. If this scan disagrees with the automated IG or if promyelocytes are noted, a manual differential will be performed. Immature Gran Absolute 0.01 0.00 - 0.05 x10(3)/mc L [facility]ERN[facility] MILLENNIUM Blood specimen (specimen) 07/01/2015 9:26 AM EST 07/01/2015 9:31 AM EST Narrative Resulting Agency Comment Spec In Lab Doug Maat MD HEMATOLOGY ORDERABLE S [facility] * (ABNORMAL) Hemogram (07/01/2015 9:26 AM EST) White Blood Cell 9.7 4.0 - 10.0 x10(3)/mc L CERN[facility] MILLENNIUM Red Blood Cell 5.34(H) 3.93 - 5.22 x10(6)/mc L [facility] Hemoglobin 14.3 11.2 - 15.7 gm/dL [facility] Hematocrit 43.2 34.0 - 45.0 % CERNER MILLENNIUM Mean Cell Volume 80.9 79.0 - 94.0 fL CERN[facility] MILLENNIUM Mean Cell Hemoglobin 26.8 26.6 - 32.2 pg [facility] Mean Cell Hemoglobin Concentration 33.1 32.0 - 36.5 gm/dL [facility] M[facility]UM Platelet 184 145 - 370 x10(3)/mc L [facility] MILL[facility]UM RDW Standard Deviation 43.2 35.0 - 46.0 fL CERNER MILLENNIUM RDW coefficient of variation 14.8(H) 10.9 - 14.4 % CERNER MILLENNIUM Mean Platelet Volume 10.3 9.0 - 12.0 fL [facility] MILLENNIUM Blood specimen (specimen) 07/01/2015 9:26 AM EST 07/01/2015 9:31 AM EST Narrative Resulting Agency Comment Spec In Lab Doug Mata MD HEMATOLOGY ORDERABLE S Performing Organization Address City/State/[facility] Co de Phone Number [facility] * Prothrombin Time (07/01/2015 9:26 AM EST) [facility] Prothrombin Time 14.0 12.0 - 15.0 sec [facility] Comment: Transfusion Committee Guidelines: INR less than 2.0, PTT less than OR equal to 43.5 seconds, or Fibrinogen greater than or equal to 100 mg/dl indicate adequate procoagulant activity for hemostasis in patients without underlying bleeding disorders. International Normalization Ratio 1.1 0.9 - 1.1 [facility] Blood specimen (specimen) 07/01/2015 9:26 AM EST 07/01/2015 9:31 AM EST Narrative Resulting Agency Comment Spec In Lab Doug Mata MD HEMATOLOGY ORDERABLE S Performing Organization Address City/[facility] Co de Phone Number [facility] * Basic Metabolic Panel (non-fasting) (07/01/2015 9:26 AM EST) Glucose 107 65 - 199 mg/dL [facility] MILLENNIUM Comment:Diabetes: >=200 mg/d L plus symptoms Blood Urea Nitrogen 11 8 - 18 mg/dL CERNER MILLENNIUM Creatinine 0.80 0.70 - 1.20 mg/dL CERNER MILLENNIUM Comment: Please note that the pediatric reference intervals supplied above were not validated at [facility]. Results from pediatric patients should be interpreted [...] the following links into your internet browser. [email or web address] Blood specimen (specimen) 07/01/2015 9:26 AM EST 07/01/2015 9:31 AM EST Narrative Resulting Agency Comment Spec In Lab Doug Mata MD CHEMISTRY ORDERABLES [facility] documented in this encounter Visit Diagnoses Diagnosis ASCVD (arteriosclerotic cardiovascular disease) Unspecified cardiovascular disease documented in this encounter
--- OUTSIDE RECORDS SUMMARY | 2024-03-29 03:37 | XMS_ITS | Referral Summary ---
Author Organization [facility] Address [address] [place] [address] Care Team Providers Care Inspector [employer] Name Role Phone Jacob Foley Primary Care Provider [phone] Social History Tobacco Use Types Packs/Day Years Used Date Smoking Tobacco: Never Assessed Interpersonal Safety Answer Date Record ed Physically Hurt Never 03/17/2020 Verbally Threaten Not on file 03/17/2020 Sex and Gender Information Value Date Recorded Sex Assigned at Not on file Gender Identity Not on file Sexual Orientation Not on file Plan of Treatment Not on file Care Teams Inspector [employer] Relationship Specialty Start Date End Date Jacob Foley DO [address] [place] [address] [place] [address] PCP - General 01/14/20
--- OUTSIDE RECORDS SUMMARY | 2024-03-29 03:37 | XMS_ITS | Encounter Summary ---
Author Organization [facility] [place] [address] Care Team Providers Care Numerical Control Nesting Operator Name Role Phone Unavailable Primary Care Provider Unavailabl e Reason for Visit * Reason Comments Follow-up Encounter Details Date Type Department Care Team (Late st Contact Info) Description 01/30/2013 11:30 AM EDT Office Visit Dermatology [address] [place] [address] Aj Albright MD [address], [place] [address] Verruca vulgaris (Primary Dx) Social History Tobacco Use Types Packs/Day Years Used Date Smoking Tobacco: Former Sex and Gender Information Value Date Recorded Sex Assigned at Not on file Gender Identity Not on file Sexual Orientation Not on file documented as of this encounter Progress Notes * Aj Albright MD - 01/30/2013 12:08 PM EDT Problem: Followup of verruca vulgaris, visit #4. Ginger follows up and still has a 3 x 5 mm verrucous papule, flat topped, present on the right index finger laterally. Physical examination confirms this. Assessment and Plan: 1. Verruca vulgaris, fourth visit, right index finger. a. Today, site was anesthetized with lidocaine and then removed with electrodesiccation. b. Vaseline petroleum jelly and Band-Aid placed. c. Wound care instructions and supplies given. Return to clinic in another month and a half for repeat check. d. Expressed my optimism that this therapy today should bring resolution of this long time chronic problem. COPY: Jacob Foley D.O. documented in this encounter Plan of Treatment Not on file documented as of this encounter Visit Diagnoses Diagnosis Verruca vulgaris- Primary Viral warts, unspecified documented in this encounter
--- OUTSIDE RECORDS SUMMARY | 2024-03-29 03:37 | XMS_ITS | Encounter Summary ---
Author Organization [facility]ly [facility] Address [facility] [place] [address] Care Team Providers Care Button Station Worker Name Role Phone Unavailable Primary Care Provider Unavailabl e Reason for Visit * Auth/Cert - Closed Specialty Diagnoses / Procedures Referred By Contac t Referred To Contact Diagnoses cad Procedures @CABG, USING 2 CORONARY ARTERIAL GRAFTS ENDOSCOPIC HARVEST VEIN(S) FOR CABG @CABG, TWO VENOUS GRAFTS & ARTERIAL GRAFT Referral ID Status Reason Start Date Expiration Date Visits Re quested Visits Authorized [id number] Closed 1 1 Encounter Details Date Type Department Care Team (Late st Contact Info) Description 07/24/2015 9:55 AM EST - 07/24/2015 3:31 PM EST Surgery [place] [id number] Tavon Chan MD [facility] DR CARDI[place]ORAC[place] [address] @CABG, USING 2 CORONARY ARTERIAL GRAFTS (WRVU 39.88) Social History Tobacco Use Types Packs/Day Years [...] Sign Reading Time Taken Comments Blood Pressure 170/72 07/24/2015 9:12 AM EST right 185/ 75 left Pulse 46 07/24/2015 9:12 AM EST Temperature 36.3 ??C (97.3 ??F) 07/24/2015 9 :12 AM EST Respiratory Rate 16 07/24/2015 9:12 AM EST Oxygen Saturation 96% 07/24/2015 9:1 2 AM EST Inhaled Oxygen Concentration - - Weight 74.2 kg (163 lb 9.6 oz) 07/24/2015 9:12 AM EST Height 154.9 cm (5' 0.98) 07/24/2015 9 :12 AM EST Body Mass Index 32.55 07/24/2015 9:12 AM EST documented in this encounter Discharge Summaries * Candida Chakraborty, APPEALS OFFICER - 07/29/2015 9:15 AM EST Inpatient - Discharge Summary Patient Name: Ginger Amador Patient Age: 79 y.o. Birthdate: 1935 Language: Ugandan Race: White Ethnicity: Not nor Admit Date: 07/24/2015 Discharge Date: 07/29/15 Attending Physician: Tavon Chan MD Follow-up Recommendations for Providers: Please continue routine management of cardiovascular risk factors including blood pressure, lipids,glucose, etc. Please note any changes to medications. Patient to follow-up with Dr. Foley, PCP in 1-2 weeks. Patient to follow-up with Cardiology in [facility]. Cardiology Dr. Jatin Wagner on Tuesday at 11:30 am, please call [phone] with any questions or concerns Patient to follow-up with Cardiac Surgery, Dr. Chan, in ~ 4 weeks with CXR and EKG. Inpatient Provider Contact Information: [facility] Section of Cardiac Surgery [facility] [address] FAX [phone] Discharge Diagnoses (Hospital Problems) Primary Diagnoses: CAD, [...] fatigue and sleepiness History of Presentation: Mrs. Warnaar is being referred for consideration of CABG. Mrs. Amador is a 79-year-old female who has been admitted to the hospital with severe hypertensionand increasing symptoms of dyspnea on exertion. Mrs. Amador denies any anginal type symptoms or anginal equivalence. She has been having increasing fatigue and dyspnea on exertion, which is relieved with rest. She went through a full workup with her traveling buyer, which ultimately led to a cardiac catheterization. [...] her hospital stay as well as her terminal carman recovery. Major Procedures/Operations: 07/24/15 CABG times 4: DAUGHERTY to LAD, SVG to om, svg to diag, jerardo to rca. Endoscopic vein harvest Hospital Course: Ginger Amador was admitted to [facility] on 07/24/2015 via the Same Day Program. [...] Tavon Chan and/or the Cardiac Surgery Physician Kosher Sealer Team may be reached at . Weight: [...] Dr. Tavon Slater. You may use a [place] Track or treadmill but avoid any pulling [...] friends, go to a movie, go to buddhism, etc. Heavy activities: No hunting, skiing, jogging, [...] should resume a low fat, low cholesterol, [place] Heart Association Diet. Driving: No driving until [...] REMOVE CHEST TUBE SUTURES ON OR AFTER 12/20/15. Oxygen therapy: 1 liters via nasal prongs to keep oxygen saturation greater than 90% wean as tolerated Follow up appointments: 1. You should arrange to see your primary care physician, MARQUIS FOLEY DO, in one-to-two weeksor as soon as possible. 2. Please follow-up with Cardiology in [facility]. Cardiology Dr. Jatin Wagner on Tuesday at 11:30 am, please call [phone] with any questions or concerns 3. You will return to clinic to see Dr. Tavon Chan or a Cardiac Surgery PA in ~4 weeks and will have a CXR and Echo at that time. A letter will be mailed to you with your appointment information. Cardiac Rehabilitation: [facility] CARDIAC REHABILITATION Ginger Amador was seen today regarding participation in the outpatient Phase 2 Cardiac Rehabilitation at [facility] . The patient agrees to a referral to this program. She will initially go to SNF at [facility] The referral will be sent at discharge and the patient should be contacted by the Program within 2-4 weeks from discharge. Future Appointments and Orders Future Orders Complete By Expires XR Chest Routine PA & Lateral [[id number] Custom] 07/28/2015 07/27/2016 Process Instructions: Scheduling Instructions: Questions: Where will study be performed?: [facility] Radiology Portable exam?: Reason for exam and clinical history: s/p cabgx4 Other pertinent information: Stat read required?: Date of injury if applicable: Requested Time: EKG 12 Lead [EKG1 Custom] As directed Process Instructions: Scheduling Instructions: Questions: Which location will this be performed?: [place] Is a rhythm strip needed?: No If EKG Reason is Pre-op Evaluation, indicate diagnosis for surgery.: Should this service/procedure be billed to the research sponsor?: Referral to Cardiac Rehab [[id number] Custom] As directed Process Instructions: If no progress note charted, please enter Clinical details in comments. Scheduling Instructions: Questions: My question or request is: s/pCABG; cardiac rehab @ [facility] Arrangements for VNA/home care: As above. VN RN OR PCP TO PLEASE REMOVE CHEST TUBE SUTURES ON OR AFTER 08/03/15. Signed: CANDIDA CHAKRABORTY APRN [facility] Section of Cardiac Surgery [facility] [address] FAX [phone] Date: 07/29/2015 CC: DO Toño FIGUEROA Nathaniel W II, MD [facility] [place] [address] documented in this encounter Discharge Instructions * Patient Instructions* Candida Chakraborty, VANCE - 07/29/2015 8:04 AM EST Discharge Instructions: Call your doctor if: You have a fever of greater than 101 degrees, shaking chills, if you develop redness or drainage from your incision sites, or if you have questions. Please call your surgeon's office if you have any discharge or drainage from your chest incision. Your surgeon, Dr. Tavon Chan and/or the Cardiac Surgery Physician Kosher Sealer Team may be reached at . Weight: [...] Dr. Tavon Slater. You may use a [place] Track or treadmill but avoid any pulling [...] friends, go to a movie, go to buddhism, etc. Heavy activities: No hunting, skiing, jogging, [...] should resume a low fat, low cholesterol, [place] Heart Association Diet. Driving: No driving until [...] on Tuesday at 11:30 am, please call [phone] with any questions or concerns 3. You will return to clinic to see Dr. Tavon Chan or a Cardiac Surgery PA in ~4 weeks and will have a CXR and Echo at that time. A letter will be mailed to you with your appointment information. Cardiac Rehabilitation: [facility] CARDIAC REHABILITATION Ginger Amador was seen today regarding participation in the outpatient Phase 2 Cardiac Rehabilitation at [facility] . The patient agrees to a referral to this program. She will initially go to SNF at [facility] The referral will be sent at discharge and the patient should be contacted by the Program within 2-4 weeks from discharge. * Attachments The following attachments cannot be sent through Care Everywhere. * CABG (CORONARY ARTERY BYPASS GRAFT SURGERY) : GENERAL INFO (CAMBODIAN) documented in this encounter Medications at Time [...] answered. Pt being taken by daughter to [facility] for rehab. * Rafael Hauser - 07/29/2015 10:47 AM EST Nutrition Services - Education Note Ginger Amador : 1935 AGE: 79 y.o. Patient Active Problem List Diagnosis Date Noted ??? Hospital-CAD (coronary artery disease) 07/02/2015 ??? Hospital-Hypertension 07/02/2015 ??? Abnormal stress test 07/01/2015 ??? Actinic keratosis 03/30/2013 ??? Verruca vulgaris 09/28/2012 ??? Seborrheic keratosis 09/28/2012 Reason for Nutrition Intervention: Patient request. Diet Order: [facility] Appetite: Good Food allergies: Wheat noted. Chewing/Swallowing [...] 07/28/2015 12:41 PM EST Office of Care Management/Health Teacher Patient Name: Ginger Amador : 1935 Patient has been offered a swing bed at [facility]. Pt will be transported by private transportation. No MD to MD report necessary Please call Nursing Report to [phone] , ask for unhairing machine operator. Info to accompany patient: Narcotic Prescriptions Copies of Medication Administration Records and IV sheets for past 10 days. Plan: Health Teacher will be available to the patient and CRC for further assistance. Patient will be discharged to: [address] [place] [id number] Claire Torres * Berhane Ochoa PA - 07/28/2015 11:36 [...] minutes Total timed interventions: 25 minutes Pager: [phone] GIBSON DOWNING PT Physical Therapy Rehabilitation Department * Cabrera Hopson RN - 07/28/2015 10:31 AM EST Office of Care Management [facility] Cardiac Care Gas Worker RN Cabrera Hopson RN, MSN Pager [phone] Office of Care Management (OCM) / Gas Worker(CM)/ Initial Assessment Discussed patient with Provider Team [...] medicare A/B, AARP, no copay concerns, prefers [facility] pharmacy in [facility] CURRENT HOME/COMMUNITY SERVICES/EQUIPMENT: none FOSTER CARE THERAPIST REFERRAL: not needed at this time PRIMARY CARE PHYSICIAN: MARQUIS FOLEY DO [address] / [place] [address] POTENTIAL DISCHARGE NEEDS: SNF, 3 choices: [facility] PHONE: [phone]: [phone] [facility] [address] [place] [address] [facility] ([facility] [address] [place] [address] (Accepts pts only after exhausting all other local SNF options ANTICIPATED BARRIERS TO DISCHARGE: pt's daughter fell this weekend, was originally supposed to transport TRANSPORTATION @ D/C: Daughter/friends? PLAN: CM will continue to monitor progress, follow for continuity of care and assist with dischargeplanning while hospitalized . * Cabrera Hopson RN - 07/28/2015 10:27 AM EST Office of Care Management [facility] Cardiac Care Gas Worker RN Cabrera Hopson RN, MSN Pager [phone] Patient would benefit from acute/SNF/swing/LTAC rehab at discharge. Full Disclosure Statement provided, as appropriate. ?? Met with patient/family at bedside. Provided [facility], Office of Care Management letter from the Stucco Applicator pertaining to rehab referrals.. ?? Reviewed levels of rehab including SNF, swing, acute and LTAC. ?? A list that serves the geographical area which the patient resides or the geographical area requested has been provided through [employer] search. ?? Requested patient/family provide at least three choices for referral. ?? Patient/family request referrals to [facility] PHONE: [phone] FAX: [phone] [facility] [address] [place] [address] [facility] (Swing) [address] [place] [address] (Accepts pts only after exhausting all other local SNF options Note routed to Health Teacher who will communicate referrals to facilities via [employer] program. * China Mandujano RN - 07/28/2015 [...] with team this morning. * Gayla Devlin Digna - 07/27/2015 12:13 PM EST Physical Therapy [...] minutes Total timed interventions: 25 minutes Pager: [phone] Gayla Devlin Physical Therapy Rehabilitation Department * [...] one lives with her) KAREN ROSADO MD Karen Newman MD - 07/26/2015 9:27 AM EST Cardiac [...] leak, site dressing c/d/i Labs: Recent Labs 07/25/1541907/24/15201907/24/15144607/24/15 1406 WBC 11.2* -- 8.1 -- HGB 10.8* 11.1* 7.8* 7.6* HCT 33.2* -- 23.9* 23.2* PLATELET 132* -- 109* 140* Recent Labs 07/25/1541907/24/152019 NA 143 -- K 4.7 3.8 CL 107 -- CO2 24 -- BUN 11 -- CREATININE 0.68* -- Recent Labs 07/24/151446 PT 20.6* PTT 37* INR 1.7* Assessment: Ginger Amador is a 79 y.o. female POD#1 [...] Full Code Jona Brewster MD PGY-2 Pager #[phone] 07/25/2015 * Lesley Stephenson RCP - 07/24/2015 4:19 PM EST Received pt from OR ~1610 placed on SIMV 510x9 PEEP 5 100% ABG 7.41/37/386 1711 Decreased FiO2 to 40% Will continue to monitor. documented in this encounter H&P Notes * Tavon Chan MD - 07/24/2015 9:13 AM EST Pt has seen a dentist and chairman and chief executive officer. Pt ready for surgery. Source Note - [...] went through a full workup with her traveling buyer, which ultimately led to a cardiac catheterization. [...] her hospital stay as well as her terminal carman recovery. Mrs. Amador is going to leave [...] went through a full workup with her traveling buyer, which ultimately led to a cardiac catheterization. [...] her hospital stay as well as her assisted recovery. Mrs. Amador is going to leave [...] of Care Goal: Plan of Care Review 07/28/15 7506 Plan of Care Review Plan of Care [...] Positioning independent Goal: Infection Control 07/28/15 1024 07/28/15 1856 Coping/Psychosocial Response Interventions Counseling emotional support provided;verbalization [...] 90-95 on RA. 95 on 1L. MSI TILE LAYER, CDI. Graph site on R leg TILE LAYER, CTI, slight redness. PLAN MOVING FORWARD: D/c tomorrow INDIVIDUALIZED FALL PREVENTION: Assistance: Independent with walker Supervision: front desk monitor Surveillance: Hourly rounding CPG GOAL OUTCOME EVALUATION: making progress towards goals * Consult Note - Jocy Joiner RN - 07/28/2015 3:14 PM EST [facility] CARDIAC REHABILITATION Ginger Amador was seen today regarding participation in the outpatient Phase 2 Cardiac Rehabilitation at [facility] . The patient agrees to a referral [...] Healing Patient will demonstrate the desired outcomes. 07/28/15253 Skin Integrity Impairment, Risk/Actual (Adult, Obstetrics) Skin [...] jalen;independently Positioning -- independent Goal: Infection Control 07/27/15199907/27/152199 Coping/Psychosocial Response Interventions Counseling understanding of situation facilitated;verbalization of feelings encouraged -- Safety Interventions Isolation Precautions -- standard precautions maintained Infection Prevention rest/sleep promoted;promote handwashing;nutrition promoted;hydration promoted;environmental surveillance;bronchial hygiene promoted -- Goal: Discharge Needs Assessment 07/27/15162507/28/15253 Self-Care Equipment Currently Used at Home none [...] Outcome: Ongoing (Interventions Implemented as Appropriate) 07/26/15 6547 Plan of Care Review Plan of Care Outcome Status ongoing (interventions implemented as appropriate) Progress improving Coping/Psychosocial Response Interventions Plan of Care Reviewed with patient Comments: OUTCOME EVALUATION NOTE: OUTCOME SUMMARY: VSS on RA. At 1211 vitals O2 sat 90% on RA, placed on 1Lvia NC with O2 sat of 95%. Ambulated 216fls9 and [id number] ( once with PT) this shift with [...] minutes (initial eval) BERHANE WORKMAN, PT Pager: [phone] Physical Therapy Rehabilitation Department * Plan of [...] of Care Goal: Plan of Care Review 07/25/15 1949 07/25/151999 Plan of Care Review Plan of Care [...] Review Outcome: Ongoing (Interventions Implemented as Appropriate) 07/25/15 1949 Plan of Care Review Plan of Care Outcome Status ongoing (interventions implemented as appropriate) Progress improving Coping/Psychosocial Response Interventions Plan of Care Reviewed with patient Comments: OUTCOME EVALUATION NOTE: OUTCOME SUMMARY: 1400: Patient transferred from [facility], report received from Nimisha. VSS on RA. Oriented to room and call gómez system. Moderate drainage from chest tube site, Candida MENA notified, dressing changed. On tele in SR [...] 5:09 PM EST 07/24/2015 Ginger Monacolionel 1935 [id number] Preoperative Diagnosis: Coronary artery disease Unstable Angina Postoperative Diagnosis: Coronary artery diseaseUnstable Angina Procedure: CABG times 4: DAUGHERTY to LAD, SVG to om, svg to diag, jerardo to rca. Endoscopic vein harvest Surgeon: Tavon Chan M.D. Kosher Sealer: Sal GUARDADO Anesthesia: General endotracheal anesthesia Drains: [...] the medial aspect of the knee. The nDreamsView XB7 system was used to dissect out [...] applied. The patient was transported to the [facility] on [facility]. All counts were correct. documented [...] Comments LAB SCAN 07/30/2015 12:00 AM EST [employer] SCHOOL DEAN SCAN 07/30/2015 12:00 AM EST [employer] SCHOOL DEAN SCAN 07/30/2015 12:00 AM EST POTASSIUM Routine [...] Routine 07/25/2015 4:20 AM EST CARDIAC ENZYMES ([facility]P) Routine 07/25/2015 4:20 AM EST CREATININE Routine [...] SCAN EXT O RDR/RSLT * SCAN DOC: [employer] SCHOOL DEAN (07/30/2015 12:00 AM EST) Anatomical Region Laterality Modality Other Scanning Provider MEDIA MGR SCAN EXT O RDR/RSLT * SCAN DOC: [employer] SCHO[employer] DEAN (07/30/2015 12:00 AM EST) Anatomical Region Laterality Modality Other Scanning Provider MEDIA MGR SCAN EXT O RDR/RSLT * Potassium (07/29/2015 4:27 AM EST) Potassium 4.0 3.5 - 5.0 mmol/L CERNER MILLENNIUM Comment: [...] MD CHEMISTRY ORDERABLE S Performing Organization Address [facility] de Phone Number VeltiCHIARA CCBR-SYNARCIUM * Potassium (07/28/2015 6:41 AM EST) Potassium 3.7 3.5 - 5.0 mmol/L CERNER [...] MD CHEMISTRY ORDERABLE S Performing Organization Address [facility] de Phone Number ViewRepleIUM * Urinalysis with reflex Culture (07/27/2015 9:29 [...] Urine Dipstick Clear Clear CERNER MILLENNIUM Specific Huff[place] Urine Automated 1.019 1.002 - 1.030 CERNER [...] MD HEMATOLOGY ORDERABL ES Performing Organization Address [facility] Co de Phone Number CERNER MILLENNIUM * (ABNORMAL) Hemogram (07/27/2015 10:11 [...] MD HEMATOLOGY ORDERABL ES Performing Organization Address City/State/[facility] Co de Phone Number CERCHIARA MILLENNIUM * (ABNORMAL) Basic Metabolic Panel (non-fasting) (07/27/2015 10:11 AM EST) Glucose 170 65 - 199 mg/dL CERNER MILLENNIUM Comment:Diabetes: >=200 mg/d L plus symptoms Blood Urea Nitrogen 13 8 - 18 mg/dL CERNER MILLENNIUM Creatinine 0.77 0.70 - 1.20 mg/dL CERNER MILLENNIUM Comment: Please note that the pediatric reference intervals supplied above were not validated at [facility]. Results from pediatric patients should be interpreted [...] the following links into your internet browser. [email or web address] Blood specimen (specimen) 07/27/2015 10:11 AM EST 07/27/2015 10:36 AM EST Narrative Resulting Agency Comment Spec In Lab Tavon Chan MD CHEMISTRY ORDERABLE S [facility] * XR Chest Routine PA & Lateral [...] EST) Potassium 3.8 3.5 - 5.0 mmol/L [facility] Comment: Please note: ??Patients with WBC [...] MD CHEMISTRY ORDERABLE S Performing Organization Address [facility] Co de Phone Number [facility] * POCT Glucose (07/25/2015 8:16 AM EST) Glucose, POC 123 65 - 199 mg/dL [facility] Comment: Supplemental ranges: <140 mg/dL before meals <180 mg/dL all other times of the day Blood specimen (specimen) 07/25/2015 8:16 AM EST 07/25/2015 8:16 AM EST Tavon Chan MD POINT OF CARE TEST ORDERABLES Performing Organization Address [facility] Phone Number [facility] * POCT Glucose (07/25/2015 6:19 AM EST) Glucose, POC 129 65 - 199 mg/dL [facility] Comment: Supplemental ranges: <140 mg/dL before meals <180 mg/dL all other times of the day Blood specimen (specimen) 07/25/2015 6:19 AM EST 07/25/2015 6:19 AM EST Tavon Chan MD POINT OF CARE TEST ORDERABLES Performing Organization Address [facility] Phone Number [facility] * Electrolytes panel (07/25/2015 4:20 AM EST) Sodium 143 135 - 145 mmol/L [facility] Potassium 4.7 3.5 - 5.0 mmol/L CERNER [...] Lab Tavon Chan MD CHEMISTRY ORDERABLE S CERNER MILLENNIUM * (ABNORMAL) Differential, Automated (07/25/2015 4:20 AM EST) Neutrophil % 88.2 % CERNER MILLENNIUM Neutrophil [...] MD HEMATOLOGY ORDERABL ES Performing Organization Address [facility] Co de Phone Number CERNER MILLENNIUM * (ABNORMAL) Hemogram (07/25/2015 4:20 [...] HEMATOLOGY ORDERABL ES CERNER MILLENNIUM * (ABNORMAL) Cardiac Enzymes (07/25/2015 4:20 AM EST) Troponin-T 0.41(H) <=0.03 ng/mL CERNER MILLENNIUM Comment: 0.03 ng/mL: Represents the 99th percentile upper reference limit for normals. >0.03 ng/mL: Elevated cardiac troponin T level indicative of myocardial damage. Diagnosis of acute, evolving or recent MD requires a typical rise and gradual fall [...] consensus document of the Joint Society of Cardiology/[place] College of Cardiology Committee for the redefinition of myocardial infarction. ??Journal of the [place] College of Cardiology 2000; 36: 959-969] Creatine Kinase 333(H) 0 - 160 unit/L [facility] Blood specimen (specimen) 07/25/2015 4:20 AM EST 07/25/2015 4:32 AM EST Narrative Resulting Agency Comment Spec In Lab Tavon Chan MD CHEMISTRY ORDERABLE S [facility] * (ABNORMAL) Glucose, fasting (07/25/2015 4:20 AM EST) Glucose Fasting 136(H) 65 - 99 mg/dL [facility] Comment: ?Fasting* Glucose Interpretive Criteria Normal ?65-99 [...] of Diabetes Mellitus, Position Statement from the [place] Diabetes Association. ??Diabetes Care, Volume 33, Supplement 1, Aug 2009 Blood specimen (specimen) 07/25/2015 4:20 AM EST 07/25/2015 4:32 AM EST Narrative Resulting Agency Comment Spec In Lab Tavon Chan MD CHEMISTRY ORDERABLE S Performing Organization Address [facility] Co de Phone Number [employer] * (ABNORMAL) Creatinine (07/25/2015 4:20 AM EST) Creatinine 0.68(L) 0.70 - 1.20 mg/dL [facility] MILLENNIUM Comment: Please note that the pediatric reference intervals supplied above were not validated at [facility]. Results from pediatric patients should be interpreted in conjunction to the patient's age, height and muscle mass. Est Glomerular Filtration Rate >60 >=60 [facility] MILLENNIUM Comment: This estimated GFR (eGFR) value [...] the following links into your internet browser. [email or web address] Blood specimen (specimen) 07/25/2015 4:20 AM EST 07/25/2015 4:32 AM EST Narrative Resulting Agency Comment Spec In Lab Tavon Chan MD CHEMISTRY ORDERABLE S Performing Organization Address [facility] de Phone Number [employer] * BUN (07/25/2015 4:20 AM EST) Blood Urea Nitrogen 11 8 - 18 mg/dL [facility] SquadMailENNIUM Blood specimen (specimen) 07/25/2015 4:20 AM EST 07/25/2015 4:32 AM EST Narrative Resulting Agency Comment Spec In Lab Tavon Chan MD CHEMISTRY ORDERABLE S Performing Organization Address [place]/[facility] Co de Phone Number [facility] * POCT Glucose (07/25/2015 4:19 AM EST) Glucose, POC 127 65 - 199 mg/dL [facility] Comment: Supplemental ranges: <140 mg/dL before meals <180 mg/dL all other times of the day Blood specimen (specimen) 07/25/2015 4:19 AM EST 07/25/2015 4:19 AM EST Tavon Chan MD POINT OF CARE TEST ORDERABLES Performing Organization Address [facility] Co de Phone Number [facility] * POCT Glucose (07/25/2015 3:11 AM EST) Glucose, POC 110 65 - 199 mg/dL [facility] Comment: Supplemental ranges: <140 mg/dL before meals <180 mg/dL all other times of the day Blood specimen (specimen) 07/25/2015 3:11 AM EST 07/25/2015 3:11 AM EST Tavon Chan MD POINT OF CARE TEST ORDERABLES Performing Organization Address [facility] Co de Phone Number [facility] * POCT Glucose (07/25/2015 1:23 AM EST) Glucose, POC 131 65 - 199 mg/dL [facility] Comment: Supplemental ranges: <140 mg/dL before meals <180 mg/dL all other times of the day Blood specimen (specimen) 07/25/2015 1:23 AM EST 07/25/2015 1:23 AM EST Tavon Chan MD POINT OF CARE TEST ORDERABLES Performing Organization Address [facility] Co de Phone Number [facility] * POCT Glucose (07/24/2015 11:07 PM EST) Glucose, POC 150 65 - 199 mg/dL [facility] Comment: Supplemental ranges: <140 mg/dL before meals <180 mg/dL all other times of the day Blood specimen (specimen) 07/24/2015 11:07 PM EST 07/24/2015 11:07 PM EST Tavon Chan MD POINT OF CARE TEST ORDERABLES [facility] * POCT Glucose (07/24/2015 9:58 PM EST) Glucose, POC 151 65 - 199 mg/dL [facility] Comment: Supplemental ranges: <140 mg/dL before meals <180 mg/dL all other times of the day Blood specimen (specimen) 07/24/2015 9:58 PM EST 07/24/2015 9:58 PM EST Tavon Chan MD POINT OF CARE TEST ORDERABLES Performing Organization Address [place] Co de Phone Number [facility] LOLAENNIUM * (ABNORMAL) BLOOD GAS 2 ARTERIAL (07/24/2015 [...] OF CARE TEST ORDERABLES Performing Organization Address [facility] de Phone Number [facility] * POCT Glucose (07/24/2015 8:58 PM EST) Glucose, POC 167 65 - 199 mg/dL [facility] Comment: Supplemental ranges: <140 mg/dL before meals <180 mg/dL all other times of the day Blood specimen (specimen) 07/24/2015 8:58 PM EST 07/24/2015 8:58 PM EST Tavon Chan MD POINT OF CARE TEST ORDERABLES Performing Organization Address [facility] de Phone Number [facility] * (ABNORMAL) Hemoglobin (07/24/2015 8:20 PM EST) Hemoglobin 11.1(L) 11.2 - 15.7 gm/dL [facility] Blood specimen (specimen) 07/24/2015 8:20 PM EST 07/24/2015 8:34 PM EST Narrative Resulting Agency Comment Spec In Lab Tavon Chan MD HEMATOLOGY ORDERABL ES Performing Organization Address [facility] Phone Number CARISSA HAHN * Potassium (07/24/2015 8:20 PM EST) Potassium 3.8 3.5 - 5.0 mmol/L [facility] Comment: Please note: ??Patients with WBC >100,000 may have falsely elevated Potassium levels. ??For accurate Potassium quantification in these patients send serum separator tube (gold top) for subsequent determinations. ??Contact the Clinical Chemistry Laboratory if there are any questions. Blood specimen (specimen) 07/24/2015 8:20 PM EST 07/24/2015 8:34 PM EST Narrative Resulting Agency Comment Spec In Lab Authorizing Provider Result Rodney Chan MD CHEMISTRY ORDERABLE S Performing Organization Address [facility] Phone Number CARISSA HAHN * POCT Glucose (07/24/2015 6:45 PM EST) Glucose, POC 121 65 - 199 mg/dL [facility] Comment: Supplemental ranges: <140 mg/dL before meals <180 mg/dL all other times of the day Blood specimen (specimen) 07/24/2015 6:45 PM EST 07/24/2015 6:45 PM EST Narrative Authorizing Provider Result Rodney Chan MD POINT OF CARE TEST ORDERABLES Performing Organization Address [facility] Phone Number [facility] * (ABNORMAL) BLOOD GAS 2 ARTERIAL (07/24/2015 [...] Chan MD POINT OF CARE TEST ORDERABLES [facility] * XR Chest Pa or AP- 1 [...] (Bezet) 474 ms MUSE SYSTEM Calculated P Linn 74 degrees MUSE SYSTEM Calculated R Linn -64 degrees MUSE SYSTEM Calculated T Linn 86 degrees MUSE SYSTEM INTERPRETATION Normal sinus rhythm Left axis deviation Poor R wave progression Prolonged QT Abnormal ECG When compared with ECG of 02-JUL-2015 07:39, Minimal criteria for Inferior infarct are no longer Present Confirmed by MD MARGARET, KEIRY ([id number]) on 07/25/2015 10:50:39 PM MUSE SYSTEM 07/24/2015 4:25 PM EST 07/25/2015 10:50 PM EST Tavon Chan MD ECG ORDERABLES MUSE SYSTEM * Prepare Platelets, Apheresis (07/24/2015 3:00 PM EST) Dispensed? Yes [facility] Blood specimen (specimen) 07/24/2015 3:00 PM EST 07/24/2015 2:58 PM EST Tavon Chan MD BLOOD BANK PRODUCT ORDERABLES [facility] * (ABNORMAL) BLOOD GAS [...] OF CARE TEST ORDERABLES Performing Organization Address [facility] de Phone Number [facility] * (ABNORMAL) Fibrinogen (07/24/2015 2:47 PM EST) Fibrinogen 172(L) 175 - 450 mg/dL [facility] Comment:Called by: rajats, Read back by: 07/24/15 15:04, Date/Time:gita [email or web address]. Blood specimen (specimen) 07/24/2015 2:47 PM EST 07/24/2015 2:51 PM EST Narrative Resulting Agency Comment Spec In Lab Lakisha Garcia MD HEMATOLOGY ORDERAB LES Performing Organization Address [facility] Phone Number [facility] * (ABNORMAL) APTT (07/24/2015 2:47 PM EST) Partial Thromboplastin Time 37(H) 25 - 35 sec [facility] Comment: Recommended therapeutic PTT range for full dose unfractionated heparin is 80-114 seconds. Blood specimen (specimen) 07/24/2015 2:47 PM EST 07/24/2015 2:51 PM EST Narrative Resulting Agency Comment Spec In Lab Lakisha Garcia MD HEMATOLOGY ORDERAB LES Performing Organization Address [facility] de Phone Number [facility] * (ABNORMAL) Prothrombin Time (07/24/2015 2:47 PM EST) Prothrombin Time 20.6(H) 12.0 - 15.0 sec [facility] Comment: Transfusion Committee Guidelines: INR less than 2.0, PTT less than OR equal to 43.5 seconds, or Fibrinogen greater than or equal to 100 mg/dl indicate adequate procoagulant activity for hemostasis in patients without underlying bleeding disorders. International Normalization Ratio 1.7(H) 0.9 - 1.1 [facility] Blood specimen (specimen) 07/24/2015 2:47 PM EST 07/24/2015 2:51 PM EST Narrative Resulting Agency Comment Spec In Lab Lakisha Garcia MD HEMATOLOGY ORDERAB LES [facility] * (ABNORMAL) Hemogram (07/24/2015 2:47 PM EST) [...] Lab Lakisha Garcia MD HEMATOLOGY ORDERAB LES [facility] * (ABNORMAL) Platelet count (07/24/2015 2:06 PM EST) Platelet 140(L) 145 - 370 x10(3)/mcL [facility] Blood specimen (specimen) 07/24/2015 2:06 PM EST 07/24/2015 2:11 PM EST Narrative Resulting Agency Comment Spec In Lab Tavon Chan MD HEMATOLOGY ORDERABL ES Performing Organization Address [facility] Phone Number [facility] * (ABNORMAL) Hemoglobin (07/24/2015 2:06 PM EST) Hemoglobin 7.6(L) 11.2 - 15.7 gm/dL [facility]ILL[facility] Blood specimen (specimen) 07/24/2015 2:06 PM EST 07/24/2015 2:11 PM EST Narrative Resulting Agency Comment Spec In Lab Tavon Chan MD HEMATOLOGY ORDERABL ES Performing Organization Address [facility] Phone Number [facility] * (ABNORMAL) Hematocrit (07/24/2015 2:06 PM EST) Hematocrit 23.2(L) 34.0 - 45.0 % [facility] MILL[facility] Blood specimen (specimen) 07/24/2015 2:06 PM EST 07/24/2015 2:11 PM EST Narrative Resulting Agency Comment Spec In Lab Tavon Chan MD HEMATOLOGY ORDERABL ES Performing Organization Address [facility] Phone Number [facility] * (ABNORMAL) Fibrinogen (07/24/2015 2:06 PM EST) Fibrinogen 166(L) 175 - 450 mg/dL [facility] MILLENNIUM Comment:Called by: dave, Read back by: 07/24/15 14:24, Date/Time:danielle barrera. Blood specimen (specimen) 07/24/2015 2:06 PM EST 07/24/2015 2:11 PM EST Narrative Resulting Agency Comment Spec In Lab Tavon Chan MD HEMATOLOGY ORDERABL ES Performing Organization Address [facility] Phone Number [facility] * (ABNORMAL) BLOOD GAS 2 ARTERIAL (07/24/2015 [...] 1.33 mmol/L [facility] Comment: Noted by instrumentation engineering technician. Note: ??Total bilirubin higher than 20 mg/dL [...] 1.33 mmol/L [facility] Comment: Noted by instrumentation engineering technician. Note: ??Total bilirubin higher than 20 mg/dL [...] GAS 2 ARTERIAL (07/24/2015 1:00 PM EST) [facility] pH, Arterial 7.42 7.35 - 7.45 CERNER [...] 1.33 mmol/L [facility] Comment: Noted by instrumentation engineering technician. Note: ??Total bilirubin higher than 20 mg/dL [...] L plus symptoms. FIO2 Art 97 % [facility] MILLENNIUM PF Ratio Art 493 [facility] Blood specimen (specimen) 07/24/2015 11:33 AM EST 07/24/2015 11:33 AM EST Tavon Chan MD POINT OF CARE TEST ORDERABLES [facility] * Prepare RBC (07/24/2015 10:05 AM EST) Pathologist [facility] Dispensed? Yes CARISSA HAHN Blood specimen (specimen) 07/24/2015 10:05 AM EST 07/24/2015 10:03 AM EST Narrative Authorizing Provider Result Rodney Chan MD BLOOD BANK PRODUCT ORDERABLES Performing Organization Address City/[facility]/ZIP Co de Phone Number CARISSA HAHN * POCT Glucose (07/24/2015 9:16 AM EST) Glucose, POC 95 65 - 199 mg/dL [facility] Comment: Supplemental ranges: <140 mg/dL before meals <180 mg/dL all other times of the day Blood specimen (specimen) 07/24/2015 9:16 AM EST 07/24/2015 9:16 AM EST Narrative Authorizing Provider Result Rodney Chan MD POINT OF CARE TEST ORDERABLES Performing Organization Address 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 Coronary artery 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 documented in this encounter Administered Medications Inactive Administered Medications - up to 3 most recent administrations Medication Order MAR Action Action Date Dose Rate Site calcium chloride 100 mg/mL (10 %) injection ONCE PRN, Starting on Flavia 07/24/15 at 1414, Until Flavia 07/24/15 at 1602, Intra-Operative (Intra-Procedure), Routine Given 07/24/2015 2:14 PM EST 1 g cardioplegic solution (PLEGISOL) induction solution ONCE PRN, Starting on Flavia 07/24/15 at 1245, Until Flavia 07/24/15 at 1602, Intra-Operative (Intra-Procedure) Given 07/24/2015 12:45 PM EST 300 mLs cardioplegic solution (PLEGISOL) maintenance solution ONCE PRN, Starting on Flavia 07/24/15 at 1422, Until Flavia 07/24/15 at 1602, Intra-Operative (Intra-Procedure) Given 07/24/2015 1:52 PM EST 450 mLs cardioplegic solution (PLEGISOL) reperfusion solution ONCE PRN, Starting on Flavia 12 at 1414, Until Flavia 07/24/15 at 1602, Intra-Operative (Intra-Procedure) Given 07/24/2015 2:14 PM EST 120 mLs cefUROXime (ZINACEF) injection 1.5 g Administer over 60 Minutes, ONCE PRN, Starting on Flavia 07/24/15 at 1225, Until Flavia 12 at 1602, Intra-Operative (Intra-Procedure), Routine Given 07/24/2015 12:25 PM EST 1 g heparin (porcine) injection ONCE PRN, Starting on Flavia 07/24/15 at 1225, Until Flavia 12 at 1602, Intra-Operative (Intra-Procedure), Routine Given 07/24/2015 2:05 PM EST 5,000 Units Given 07/24/2015 12:25 PM EST 5,000 Units lidocaine (PF) (XYLOCAINE) 100 mg/5 mL (2 %) injection ONCE PRN, Starting on Flavia 07/24/15 at 1414, Until Flavia 07/24/15 at 1602, Intra-Operative (Intra-Procedure), Routine Given 07/24/2015 2:14 PM EST 200 mg magnesium sulfate 4 mEq/mL (50 %) injection ONCE PRN, Starting on Flavia 07/24/15 at 1414, Until Flavia 07/24/15 at 1602, Intra-Operative (Intra-Procedure), Routine Given 07/24/2015 2:14 PM EST 2 g mannitol (50 grams and over) 100 g/500 mL (20%) infusion ONCE PRN, Starting on Flavia 07/24/15 at 1414, Until Flavia 07/24/15 at 1602, Intra-Operative (Intra-Procedure) Given 07/24/2015 2:14 PM EST 40 g vancomycin (VANCOCIN) injection ONCE PRN, Starting on Flavia 07/24/15 at 1521, Until Flavia 07/24/15 at 1602, Intra-Operative (Intra-Procedure), Routine Given 07/24/2015 3:21 PM EST 1 g 19- Surgical Site verapamil (ISOPTIN) injection ONCE PRN, Starting on Flavia 07/24/15 at 1520, Until Flavia 07/24/15 at 1602, Administer over 2 Minutes, Intra-Operative (Intra-Procedure) Given 07/24/2015 3:20 PM EST 5 mg 19- Surgical Site documented in this encounter Active and Recently [...] Provider: Shwetha Ferguson RN - Reason: Patient/family refused)164 (Given - Provider: Shwetha Ferguson RN)194 (Given - Provider: China Mandujano RN) aspirin [...] on Tue07/25/15 at 1700, Until Discontinued, Routine 164 (Given - Provider: Shwetha Ferguson RN) 173 (Given - Provider: Barbara Garcia RN) furosemide (LASIX) injection 20 mg (CANCELED) 20 mg, Intravenous, 2 TIMES DAILY, First dose on Tue07/25/15 at 0930, Until Discontinued 0933 (Given - Provider: Shwetha Ferguson RN)164 (Given - Provider: Shwetha Ferguson RN) furosemide [...] Shwetha Ferguson RN)2010 (Given - Provider: China Mandujano RN) meTOPROLOL (LOPRESSOR) tablet 12.5 mg (COMPLETED) 12.5 mg, Oral, ONCE, 1 dose, On Tue07/27/15 at 2100, Routine 2130 (Given - Provider: China Mandujano, LENKA) meTOPROLOL tartrate (LOPRESSOR) tablet 25 mg 25 mg, Oral, EVERY 8 HOURS SCHEDULED, First dose (after last modification) on Tue07/28/15 at 0845, Until Discontinued, Hold for SBP<90 and Hrt rate <50, Routine 0958 (Given - Provider: Barbara Garcia RN)1512 (Given - Provider: Barbara Garcia RN)2112 (Given - Provider: Nancy Jc RN) 0625 (Given - Provider: Nancy Jc RN) pantoprazole (PROTONIX) tablet 40 mg (CANCELED)(Linked Group 2) 40 mg, Oral, DAILY, First dose on Flavia 07/24/15 at 1630, Until Discontinued, If unable to take PO, may give IV 0933 (Given - Provider: Shwetha Ferguson RN) 0959 (Given - Provider: Barbara Garcia RN) 0802 (Given - Provider: Barbara Garcia RN) potassium chloride (K-DUR/KLOR-CON) extended release tablet 10 mEq 10 mEq, Oral, 2 TIMES DAILY, First dose on 07/26/15 at 0900, Until Discontinued, Routine 0933 (Given - Provider: Shwetha Ferguson RN)2010 (Given - Provider: China Mandujano RN) 0959 (Given - Provider: Barbara Garcia RN) potassium chloride (KAYCIEL) 20 mEq/15 mL oral solution 20 mEq (CANCELED) 20 mEq, Oral, 2 TIMES DAILY, First dose on 07/28/15 at 1515, Until Discontinued 1513 (Given - Provider: Barbara Garcia RN) 08 (Given - Provider: Barbara Garcia RN) senna-docusate [...] parameters not met)1815 (Not Given - Provider: Babrara Garcia RN - Reason: Order parameters not [...] Felix RN)1038 (Given - Provider: Shwetha Ferguson RN)194 (Given - Provider: China Mandujano, LENKA) 043 (Given - Provider: China Mandujano RN - Comment: per patient request. States it has been upsetting her stomach. Would like the next half with breakfast)0653 (Given - Provider: China Mandujano RN - Comment: per patient request)132 (Given - Provider: Barbara Garcia RN - Comment: pt requested half dose of tylenol, which she has gotten in the past)2111 (Given - Provider: Nancy Jc RN) albuterol (PROVENTIL HFA;VENTOLIN HFA;PROAIR) 90 mcg/actuation inhaler 2 puff (CANCELED) 2 puff, Inhalation, EVERY 6 HOURS PRN, Starting on 07/28/15 at 0700, Until Tue07/29/15 at 1350, Wheezing, When EXtubated., Routine 1513 (Given - Provider: Barbara Garcia RN)2111 (Given - Provider: Nancy Jc RN) 043 (Given - Provider: Nancy Jc RN)09 (Given - Provider: Harmony Kasper RN) oxyCODONE [...] 40 mg, Oral, DAILY, First dose on [facility] 07/24/15 at 1630, Until Discontinued, If unable to take PO, may give IV Or pantoprazole (PROTONIX) injection 40 mg (CANCELED) 40 mg, Intravenous, DAILY, First dose on [facility] 07/24/15 at 1630, Until Discontinued, Reconstitute with 10 mL of normal saline to a concentration of 4 mg/mL and infuse slowly over 2 minutes., Routine documented in this encounter
--- OUTSIDE RECORDS SUMMARY | 2024-03-29 03:37 | XMS_ITS | Encounter Summary ---
Author Organization [facility] [place] [address] Care Team Providers Care Surgery Consultant Name Role Phone Unavailable Primary Care Provider Unavailabl e Reason for Visit * Reason Comments Follow-up Encounter Details Date Type Department Care Team (Late st Contact Info) Description 10/19/2012 3:00 PM EST Office Visit Dermatology [address] [place], [place] [id number] Aj Albright MD [address], [place] [address] Verruca vulgaris (Primary Dx) Social History Tobacco Use Types Packs/Day Years Used Date Smoking Tobacco: Former Sex and Gender Information Value Date Recorded Sex Assigned at Not on file Gender Identity Not on file Sexual Orientation Not on file documented as of this encounter Progress Notes * Aj Albright MD - 10/19/2012 3:04 PM EST Problem is verruca vulgaris. Ginger follows up and the 3 x 5 mm verrucous papule on the right index finger laterally has flattened down and is now about 3 x 4 mm in diameter. A hyperkeratotic flat base remains. Physical examination confirms this. Assessment and Plan: Verruca vulgaris, second visit, right index finger laterally. a. After first trimming down this verruca site, removing overlying hyperkeratosis, site was treated with LN2 times three aggressively. b. Return to clinic in three weeks for repeat check. c. If significant base remains next visit, may need to consider either bleomycin injection or C and D removal of remaining wart site. Copy: Jacob Foley D.O. documented in this encounter Plan of Treatment Not on file documented as of this encounter Visit Diagnoses Diagnosis Verruca vulgaris- Primary Viral warts, unspecified documented in this encounter
--- OUTSIDE RECORDS SUMMARY | 2024-03-29 03:37 | XMS_ITS | Encounter Summary ---
Author Organization [facility] [place] [address] Care Team Providers Care Manager Credit Collections Name Role Phone Unavailable Primary Care Provider Unavailabl e Reason for Visit * Auth/Cert - Closed Specialty Diagnoses / Procedures Referred By Contac t Referred To Contact Diagnoses ASCVD Procedures CARDIAC CATHETERIZATION Referral ID Status Reason Start Date Expiration Date Visits Re quested Visits Authorized [id number] Closed 1 1 Encounter Details Date Type Department Care Team (Late st Contact Info) Description 07/01/2015 9:30 AM EST - 07/01/2015 10:30 [place] [id number] Chon Lundberg II, MD [facility] [place] [address] CARDIAC CATHETERIZATION Social History Tobacco Use Types [...] Sign Reading Time Taken Comments Blood Pressure 155/49 07/02/2015 12:35 PM EST Pulse 52 07/02/2015 12:35 PM EST Temperature 36.8 ??C (98.2 ??F) 07/02/2015 1 1:52 AM EST Respiratory Rate 20 07/02/2015 4:00 AM EST Oxygen Saturation 98% 07/02/2015 11: 52 AM EST Inhaled Oxygen Concentration - - Weight 74.8 kg (164 lb 14.5 oz) 07/02/2015 5:30 AM EST Height 154.9 cm (5' 1) 07/01/2015 10:3 1 AM EST Body Mass Index 31.16 07/01/2015 10:31 AM EST documented in this encounter Discharge Summaries * Dean Tilley MD - 07/02/2015 1:56 PM EST Discharge Summary Patient Name: Ginger Amador Patient Age: 79 y.o. Language: Bangladeshi Race: White Ethnicity: Not nor Admit date: 07/01/2015 Discharge date and time: 07/02/2015 2:29 PM Attending Physician: Chon Lundberg MD Discharge Physician: Dean Tilley MD Follow-up Recommendations for Providers: Follow up blood pressure, titrate meds as needed Triple vessel disease seen on cardiac cath, surgery date for July 24, 2015 Inpatient Provider Contact Information: Belle Guntergeraldine, TRACTOR TRAILER TECHNICIAN [phone] Discharge Diagnoses (Hospital Problems) and Secondary Diagnoses (Chronic Problems): Active Hospital Problems Diagnosis ??? CAD (coronary artery disease) ??? Hypertension Resolved Hospital Problems Diagnosis Date Resolved No resolved problems to display. Active Non-Hospital Problems Diagnosis ??? Abnormal stress test ??? Actinic keratosis ??? Verruca vulgaris ??? Seborrheic keratosis Operations/Major Procedures: Operations: Procedure(s) with comments: CARDIAC CATHETERIZATION - Procedure: Coronary Angiography 07/01/15 Conclusions: * Three vessel coronary artery disease (LAD, LCX and RCA) Complications/Events: The patient had no complications during these procedures. Recommendations: Based upon the results of this procedure, it was recommended that coronary artery bypass surgery be considered. Echo: 07/02/15 1. The left ventricular chamber size is normal. Moderate concentric left ventricular hypertrophy is observed. There is normal global left ventricular systolic function. Ejection fraction is estimated to be 65% with no left ventricular segmental wall motion abnormalities. 2. Right ventricular chamber size, wall thickness, and systolic function are within normal limits. 3. The left atrium is mildly dilated. The right atrium appears normal. 4. The aortic valve leaflets are mildly thickened. There is no evidence of aortic valve stenosis. 5. The pericardium appears normal and there is no evidence of a pericardial effusion. History of Presentation: Ginger Amador is a 79 y.o. female who was referred for cardiac catheterization WILBERT Thomas for evaluation of coronary artery disease in the setting of LUNA and positive nuclear stress test with mod size severe intensity ischemia of lateral wall, with LVEF 56% and no RWMAs. There have not been any changes in health status since last seen in clinic. No fevers, no chills, no bleeding. Hospital Course: New ASCVD The patient went to the cardiac pathology lab technician for a diagnostic cath after being referred with positive stress test. Cardiac cath found normal left main, 60% mid LAD stenosis, multiple 80% mid D1 stenoses,Circumflex with proximal total occlusion that is fed via collaterals from the LAD and RCA, and the RCA showed ostial 60% stenosis. Based upon these findings the patient was referred to cardiac surgery. The patient met with Dr. Chan and the plan will be for her to return for surgery at a later date as per her preference. An echo was done and the preliminary read showed that her EF is preserved. The patient was started on aspirin 81 mg daily, atorvastatin 80 mg daily, lisinopril 5 mg daily, metoprolol xl 50 mg daily and prn nitroglycerin. She continues on amlodipine 10 mg daily. Based upon the acuity of the patient???s initial presentation, need for aggressive intervention, and expected clinical course the patient met inpatient criteria. The severity of cardiac disease discovered could not be treated with stenting, requiring open procedures for repair. The expectation at admission was for greater than a one day stay. Hyperlipidemia Lipid profile showed total cholesterol 178 with LDL 110. Patient has been on no statin prior to heradmission. She was started on atorvastatin 80 mg daily at discharge. Hypertension The patient's systolic blood pressure has been 100-160s after starting this new medical regimen. She may need to have her blood pressure medications titrated as an outpatient. Smoking cessation was advised & discussed. n/a The patient tolerated supervised ambulation in the hallway and up/downstairs with no anginal symptoms. The patient was discharged home in stable condition. Functional and Cognitive Status: Alert and oriented x 3, ambulatory-independent Important Studies and Lab Data: Labs: Lab Results Component Value Date WBC 8.6 07/02/2015 HGB 13.5 07/02/2015 HCT 40.8 07/02/2015 PLATELET 160 07/02/2015 Recent Labs 07/02/15 0707 INR 1.0 Lab Results Component Value Date NA 140 07/02/2015 K 4.2 07/02/2015 CL 101 07/02/2015 CO2 26 07/02/2015 BUN 12 07/02/2015 CREATININE 0.70 07/02/2015 No results for input(s): TSH in the last 7068 hours. No results for input(s): HA1C in the last 7068 hours. Recent Labs 07/02/15 0707 CK 110 TROPONINT <0.03 Lab Results Component Value Date CHLPL 178 07/02/2015 HDL 45 07/02/2015 CHOLHDL 4.0 07/02/2015 TRIG 115 07/02/2015 LDLCHOL 110* 07/02/2015 Pending Studies and Lab Data: NA Discharge Conditions/Prognosis: Ambulatory without anginal symptoms Discharge to: Home via Same Day Updated Allergies/ADRs: Allergies Allergen Reactions ??? Bacitracin ??? Gramicidin D ??? Lidocaine ??? Neomycin Sulfate ??? Neosporin [Hydrocortisone] ??? Polymyxin B ??? Polymyxin B Sulfate ??? Sulfa (Sulfonamide Antibiotics) ??? Wheat Nausea And Vomiting Extreme fatigue and sleepiness Immunizations Given this Hospitalization: Immunization History Administered Date(s) Administered ??? Influenza Vaccine, Whole 06/28/2005 ??? Td, adult 10/09/2003 Discharge Medications: Your Medications New Medications Dose Details aspirin 81 mg Tbec Take 1 tablet by mouth daily. 81 mg Quantity: 30 tablet Refills: 3 atorvastatin 80 mg Tab Commonly known as: LIPITOR Take 1 tablet by mouth every evening. 80 mg Quantity: 30 tablet Refills: 6 chlorhexidine 4 % Liqd Commonly known as: HIBICLENS Apply topically daily as needed. Shower from head to toe with Chlorhexidine the night before surgery . Quantity: 120 mL Refills: 0 lisinopril 5 mg Tab Commonly known as: PRINIVIL;ZESTRIL Take 1 tablet by mouth daily. 5 mg Quantity: 30 tablet Refills: 3 meTOPROLOL succinate 50 mg Tablet sr Commonly known as: TOPROL-XL Take 1 tablet by mouth daily. 50 mg Quantity: 30 tablet Refills: 12 nitroGLYcerin 0.4 mg Subl Commonly known as: NITROSTAT Place 1 tablet under the tongue every 5 minutes as needed for Chest pain. 0.4 mg Quantity: 25 tablet Refills: 3 Continued medications with new dosing Dose Details amLODIPine 5 mg Tab Commonly known as: NORVASC Take 2 tablets by mouth daily. What changed: how much to take 10 mg Quantity: 30 tablet Refills: 11 Continued medications, unchanged Dose Details ADVAIR DISKUS 250-50 mcg/dose Dsdv 1 Disk(s), Inh, Twice daily Generic drug: fluticasone-salmeterol Refills: 0 CIS FREE TEXT MED 2 Puff(s), Inh, Four times daily Four times daily Refills: 0 STOPPED Medications allopurinol 100 mg Tab Commonly known as: ZYLOPRIM lisinopril-hydrochlorothiazide 20-12.5 mg Tab Commonly known as: PRINZIDE;ZESTORETIC Smoking Status at Discharge: History Smoking status ??? Never Smoker Smokeless tobacco ??? Not on file Instructions Given to Patient at Discharge: There are no Patient Instructions on file for this visit. General Instructions Call your doctor if: Chest pain, shortness of breath, pain or swelling in legs occurs. If you have non-emergent questions between now and the time of your follow up appointments: During 8am-5pm Tuesday through Tuesday call [phone] to speak with a nurse in the cardiology clinic All other times call [phone] and ask to speak to the customer service security officer file conversion operator. Return to work: One week Driving: May resume driving this afternoon, monitor groin for bleeding or pain. Follow up Appointments: PCP MARQUIS MANRIQUE, DO July 15, 2015 at 3:[address] Jatin Wagner on Tuesday at 11:30 am, please call [phone] with anyquestions or concerns After discharge from hospital, please proceed to the[address] clinic for pre- surgical testing per . Cardiac surgery July 24 please call [phone] with any questions or concerns Future Appointments Provider Department Dept Phone 07/02/2015 2:40 PM LAB, [facility] Lab 4[facility] [phone] Discharge References/Attachments CORONARY ANGIOGRAM : POST-OP (SWEDISH) documented in this encounter Discharge Instructions * Discharge Instructions* Bertha Cox APRN - 07/02/2015 2:29 PM EST Call your doctor if: Chest pain, shortness of breath, pain or swelling in legs occurs. If you have non-emergent questions between now and the time of your follow up appointments: During 8am-5pm Tuesday through Tuesday call [phone] to speak with a nurse in the cardiology clinic All other times call [phone] and ask to speak to the customer service security officer file conversion operator. Return to work: One week Driving: May resume driving this afternoon, monitor groin for bleeding or pain. Follow up Appointments: PCP MARQUIS MANRIQUE DO July 15, 2015 at 3:[address] Jatin Wagner on Tuesday at 11:30 am, please call [phone] with anyquestions or concerns After discharge from hospital, please proceed to the[address] clinic for pre- surgical testing per . Cardiac surgery July 24 please call [phone] with any questions or concerns * Attachments The following attachments cannot be sent through Care Everywhere. * CORONARY ANGIOGRAM : POST-OP (SWEDISH) documented in this encounter Medications at Time of Discharge Medication Sig Dispensed Refills Start Date End Date chlorhexidine (HIBICLENS) 4 % LiquidIndications:Co ronary artery 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 Apply topically daily as needed. Shower from head to toe with Chlorhexidine the night before surgery . 120 mL 0 07/02/2015 07/24/2015 amLODIPine (NORVASC) 5 mg Tablet Take 2 tablets by mouth daily. 30 tablet 11 07/02/2015 07/29/2015 aspirin 81 mg Tablet, Delayed Release (E.C.) Take 1 tablet by mouth daily. 30 tablet 3 07/02/2015 06/09/2022 atorvastatin (LIPITOR) 80 mg Tablet Take 1 tablet by mouth every evening. 30 tablet 6 07/02/2015 07/13/2016 lisinopril (PRINIVIL;ZESTRIL) 5 mg Tablet Take 1 tablet by mouth daily. 30 tablet 3 07/02/2015 07/23/2015 meTOPROLOL succinate (TOPROL-XL) 50 mg Tablet Sustained Release 24 hr Take 1 tablet by mouth daily. 30 tablet 12 07/02/2015 07/29/2015 nitroGLYcerin (NITROSTAT) 0.4 mg Tablet, Sublingual Place 1 tablet under the tongue every 5 minutes as needed for Chest pain. 25 tablet 3 07/02/2015 07/29/2015 CIS Free Text Med - Albuterol 2 Puff(s), Inh, Four times daily Four times daily 07/28/2006 07/24/2015 documented as of this encounter Progress Notes * Erlinda Bundy RN - 07/02/2015 2:12 PM EST IVs and telemetry discontinued. AVS and cath site care reviewed with Ginger. No additional questions at time of discharge. Left via wheelchair to 4V pre- procedural testing. Knows to call with any questions, has number. Will drive self home, ok per ASSISTANT HOUSEKEEPING MANAGER Belle. * Oma Ca RN - 07/02/2015 12:45 PM EST Office of Care Management Tax Services Manager Oma Ca RN, BSN -CM INITIAL ASSESSMENT Room # 450 Chart reviewed. Patient and plan of care discussed in morning multidisciplinary rounds. REASON for HOSPITALIZATION: 79 y.o. female who was referred for cardiac catheterization [facility] Thomas for evaluation of coronary artery disease in the setting of LUNA and positive nuclear stress test with mod size severe intensity ischemia of lateral wall, with LVEF 56% and no RWMAs. PCP:MARQUIS MANRIQUE DO @PCPADDR@ [phone] CURRENT STATUS: Remains at baseline level of function. SOCIAL/FAMILY SUPPORTS: She has three wonderful and very involved daughters. If she needs them theywill be at her side in a heartbeat. They are already planning for what needs to happen and who willbe there to help her when she has to have her surgery. INSURANCE COVERAGE/FINANCIAL ISSUES: Medicare ADVANCE DIRECTIVES: on file REHAB TEAM CONSULTS: Not indicated at this time. AIRLINE STATION AGENT: Not indicated at this time. ASSESSMENT/PLAN: Nursing assessment reviewed and spoke with patient. No new post hospital care needs have been identified. No concerns have been voiced by patient or family requiring CRC intervention. Will continue to be available should needs arise. * Belle Cosby, TRACTOR TRAILER TECHNICIAN - 07/02/2015 9:43 AM EST Inpatient Cardiology Progress Note Patient Name: Ginger Amador Service: ASSISTANT HOUSEKEEPING MANAGER / PA Responsible Attending: Dean Tilley MD Reason for continued hospitalization: Evaluation and management of CAD, Cardiac surgery referral Probable discharge today and return same day for CABG Active Problems: Active Hospital Problems Diagnosis ??? CAD (coronary artery disease) ??? Hypertension Resolved Hospital Problems Diagnosis Date Resolved No resolved problems to display. Interval History: Patient rested well, denies LUNA, denies chest pain/pressure. Requesting to be discharged and return on a later date for surgery. Review of Systems: Review of Systems Constitutional: Positive for activity change (Unable to walk distances due to dyspnea). Negative for fatigue. HENT: Negative. Eyes: Negative for visual disturbance. Respiratory: Positive for shortness of breath (with activity). Negative for chest tightness and wheezing. Cardiovascular: Negative for chest pain, palpitations and leg swelling. Gastrointestinal: Negative. Endocrine: Negative. Genitourinary: Negative. Musculoskeletal: Negative. Skin: Negative. Allergic/Immunologic: Negative. Neurological: Negative for syncope, weakness and light-headedness. Hematological: Negative. Psychiatric/Behavioral: Negative. Telemetry: HR: 50's-70's NSR/SB, rare PVC's Meds: Scheduled Meds: ??? meTOPROLOL succinate 50 mg Oral Daily ??? amLODIPine 10 mg Oral Daily ??? famotidine 20 mg Oral BID ??? atorvastatin 80 mg Oral QPM ??? hydrochlorothiazide 25 mg Oral Daily ??? fluticasone-salmeterol 2 puff Inhalation 2 times per day ??? lisinopril 5 mg Oral Daily ??? aspirin 81 mg Oral Daily Continuous Infusions: PRN Meds:acetaminophen, ipratropium-albuterol, nitroGLYcerin, morphine Physical Exam: Vital Signs: Last value Range last 24 hrs Temperature Temp: 37 ??C (98.6 ??F) Temp: [36.2 ??C (97.2 ??F)-37 ??C (98.6 ??F)] Heart Rate Heart Rate: 65 Heart Rate: [47-97] Blood Pressure BP: 156/51 mmHg BP: (97-226)/(36-85) Respiratory Rate Resp: 20 Resp: [10-22] SpO2 SpO2: 96 % SpO2: [90 %-99 %] Physical Exam Constitutional: She is oriented to person, place, and time. No distress. HENT: Head: Normocephalic and atraumatic. Eyes: Right eye exhibits no discharge. Left eye exhibits no discharge. Neck: Normal range of motion. Neck supple. No JVD present. Cardiovascular: Normal rate, regular rhythm, normal heart sounds and intact distal pulses. No murmur heard. Pulmonary/Chest: Effort normal and breath sounds normal. No respiratory distress. She has no wheezes. Abdominal: Soft. Bowel sounds are normal. Musculoskeletal: Normal range of motion. She exhibits no edema. Neurological: She is alert and oriented to person, place, and time. Skin: Skin is warm and dry. She is not diaphoretic. Right groin cath site dressing intact, site benign, no hematoma, no bruits Psychiatric: She has a normal mood and affect. Her behavior is normal. Lab Comments: Recent Labs 07/02/15 0707/01/15 09 WBC 8.6 9.7 HGB 13.5 14.3 HCT 40.8 43.2 PLATELET 160 184 Recent Labs 07/02/15 07 INR 1.0 Recent Labs 07/02/15 0707/01/15 09 NA 140 140 K 4.2 4.2 CL 101 102 CO2 26 25 BUN 12 11 CREATININE 0.70 0.80 No results for input(s): AST, ALT, ALKPHOS, BILITOT, BILIDIR in the last 168 hours. Recent Labs 07/02/15 0707/01/15 0926 CALCIUM 8.6 9.3 Recent Labs 07/02/15 0707 CK 110 TROPONINT <0.03 Pertinent Radiographic/Diagnostic Results: I have independently visualized the following studies: ECG: SB, HR 53, ST/T wave abnormalities Echocardiogram: final report pending Preliminary report, normal EF, mild diastolic dysfunction Assessment: Ginger Amador is a 79 y.o. female with a PMH of hypertension with non-compliance of medications and bilateral knee replacements. She underwent a nuclear stress test on 06/26 due to c/o increasing LUNA and it was positive. She underwent cardiac cath yesterday and was recommended for CABG. She is requesting to be discharged and return for surgery after holiday. She also has uncontrolled hypertension and was weaned off nicardipine drip with additional labetalol IV boluses for ongoing hypertension. Her blood pressure this morning is 140's-150's systolic. She states she only takes amlodipine 5 mg at home and she stopped taking lisinopril/HCTZ a long time ago due to it not working and she reports leg cramps from diuretic. Anticipate DC today and pre-surgical procedures post DC per Cardiac surgery. Plan: 1. ASCVD Cardiac cath (07/01/2015): mLAD 60%, m D1 80%, ostial RCA 60%, ostial LCX 100% total occlusion-CABGrecommended, Dr. Chan ASA 81 mg Atorvastatin 80 mg daily (lipid profile: Cholesterol 178, HDL 45, LDL 110) Metoprolol xL 50 mg daily Lisinopril 5 mg daily NTG SL PRN 2. Uncontrolled Hypertension Amlodipine 10 mg daily Lisinopril 5 mg daily Metoprolol xL 50 mg daily Monitor trends Education and encouragement provided for compliance with hypertension medication regimen Discussed with Dean Tilley MD Shannon C. Schachtner, APRN 07/02/2015 Associated attestation - Dean Tilley MD - 07/02/2015 4:11 PM EST Cardiology Attending Addendum I shared this visit with Belle Cosby APRN, and guided the medical decision-making. More than 30 minutes were spent in [id number] contact with patient and with arranging discharge and coordinating follow-up. * Tra Moe MD - 07/01/2015 6:52 PM EST Cardio-Hospitalist Progress note: -79 y/o F with PMH of HTN, HLD & bilat TKA. This pt presented through the same day program for an elective cardiac cath today. She denies any recent history of angina, but for the past few weeks she has had gradually worsening LUNA, especially when walking uphill. She had a regadenson nuc [facility]resstest @ [facility] on 06/23/15 which showed EF 56% & which was positive for ischemia with a reversible defect in the Lateral Wall. She saw Roseann Sarabia in Cardio clinic on 07/01/15 for an evaluation prior to elective cath. Cath today with Dr. Lundberg revealed 60% mLAD, 1005 pLCX & 60% OstRCA. In the pathology lab technician she had briefly required Nicardipine drip to control her BP. Upon arrival on , her BP was 218/72 & she complained of Rt thigh pain with minimal oozing from hr Rt groin cath site. Dr. Edwards & myself examined the patient. There is no hematoma, nor any evidence of a deep groin bleed. DP+ pulse in Rt foot is palpable. She is clinically stable, with only mild complaints of Rt groinpain. BP 176/66 mmHg Pulse 68 Temp(Src) 36.8 ??C (98.2 ??F) (Oral) Resp 16 Ht 154.9 cm (5' 1) Wt 75.297 kg (166 lb) BMI 31.38 kg/m2 SpO2 95% A. Triple Vessel Disease s/p Elective Cath Accelerated HTN P. Will commence BP control with Norvasc & Nitro SL. If BP not adequately controlled, then willgive labetalol IV prior to considering Nitro drip Pt is to be reviewed by CT surgery with a view to towards possible CABG in this admission -Will continue to monitor Rt groin overnight. Manual compression followed by sand bag pressure was applied to the Rt groin. Bed rest extended. * Lulu Perez MD - 07/01/2015 1:08 PM EST Interventional cardiology post PCI/cardiac catheterization note Ginger Amador is s/p elective cardiac catheterization in the setting of LUNA and positive stress test with lateral ischemia. She was found to have 3VD with: - ELEVATOR EXAMINER of the proximal LCX - ostial OM1 disease - ostial RCA disease with damping of the catheter with engament - significant mid LAD disease - significant mid Diag 1 disease Vascular access was performed via RFA 6F sheath. Due to tortuosity encountered in the iliofemoral vessels a long 6 x 34 F sheath was used. Hemostasis was obtained with Perclose closure device. RFA access site is c/d/i, without hematoma or ecchymosis. RDP pulse 2+. HTN during procedure with SBP 230 at the start, nicardipine initiated with SBP 170s at 10 mg/min. Metoprolol 5 mg IV x 1 administered. A/P No vascular access complications. 3VD Severe HTN Admit for CT surgery consult for CABG and management of severe HTN. ADDENDUM - patient seen in f/u, awaiting ICCU bed - RFA site c/d/i; RDP 2+ - weaned off Nicardipine gtt, SBP 140-160-180 - reviewed patient and plan with ASSISTANT HOUSEKEEPING MANAGER service * Vahid Miller RN - 07/01/2015 10:00 AM EST ABSORB IV ENROLLMENT NOTE ABSORB IV RANDOMIZED CONTROLLED TRIAL A Clinical Evaluation of Absorb??? BVS, the Everolimus Eluting Bioresorbable Vascular Scaffold in the Treatment of Subjects with de [place]ael [place] Coronary Artery Lesions PI: Steven Colby MD Pager #:[phone] Consent: Following the determination this potential participant did not have any obvious evidence of clinical exclusion to the ABSORB IV Randomized Controlled Trial, the subject was provided with a written informed consent. The purpose, procedures, risks, potential benefits of the study, as well as alternatives to participation were reviewed and questions were answered. The subject signed the informed cons ent agreeing to participate, providing angiographic inclusion criteria are satisfied. The subject was provided with a copy of the signed informed consent document. Purpose: The pivotal trial to support the [place] pre-market approval (PMA) of Absorb BVS. ABSORB IV will evaluate the safety and effectiveness of the Absorb BVS System compared to the XIENCE in the treatment of subjects, including those with diabetes mellitus, with ischemic heart disease caused by up to three [place] coronary artery lesions in two separate epicardial vessels. Study Design: A prospective, randomized (2:1 ABSORB BVS to XIENCE), single-blind, multi-center trial registering ~3000 patients. Subject Enrollment, Randomization and Registration: - Subjects are considered enrolled in ABSORB IV after signing the Informed Consent. - Subjects are considered randomized in ABSORB IV after the interactive voice response system (IVRS) has been called and a device (Absorb BVS or XIENCE) has been assigned. - Subjects are considered registered in the ABSORB IV upon randomization. Ms. Amador was not randomized into ABSORB IV. documented in this encounter H&P Notes * Lulu Perez MD - 07/01/2015 10:52 AM EST Patient Name: Ginger Amador Patient Age: 79 y.o. Birthdate: 1935 Admit date: 07/01/2015 Attending Physician: Chon Lundberg II, MD Ginger Amador is a 79 y.o. female who was referred for cardiac catheterization [facility]BERT Thomas for evaluation of coronary artery disease in the setting of LUNA and positive nuclear stress test with mod size severe intensity ischemia of lateral wall, with LVEF 56% and no RWMAs. There have not been any changes in health status since last seen in clinic. No fevers, no chills, no bleeding. Outpatient Prescriptions Marked as Taking for the 07/01/15 encounter (Hospital Encounter) Medication Sig Dispense Refill ??? amLODIPine (NORVASC) 5 mg tablet Take 5 mg by mouth daily. ??? CIS Free Text Med - Albuterol 2 Puff(s), Inh, Four times daily Four times daily ??? fluticasone-salmeterol (ADVAIR DISKUS) 250-50 mcg/dose diskus inhaler 1 Disk(s), Inh, Twice daily BP 195/71 mmHg Pulse 68 Temp(Src) 36.2 ??C (97.2 ??F) Resp 16 Ht 154.9 cm (5' 1) Wt 75.297 kg (166 lb) BMI 31.38 kg/m2 SpO2 98% PE NAD CV: RRR, S1 S2 physiologic, 2/6 mid JOE at the base, JVP at 3 cm H2O above clavicle at 45 deg incline Pulm: CTAB, no w/r/r Abd: soft, NT, ND, +BS, no bruits Vasc: 2+ R radial with favorable Jose Angel's test, 2+ bilat femoral pulses without bruits, 2+ bilat DP pulses Extr: wwp, no edema Labs reviewed and notable for: Lab Results Component Value Date WBC 9.7 07/01/2015 HGB 14.3 07/01/2015 HCT 43.2 07/01/2015 MCV 80.9 07/01/2015 PLATELET 184 07/01/2015 Lab Results Component Value Date INR 1.1 07/01/2015 Lab Results Component Value Date CREATININE 0.80 07/01/2015 BUN 11 07/01/2015 NA 140 07/01/2015 K 4.2 07/01/2015 CL 102 07/01/2015 CO2 25 07/01/2015 A/P 79 y.o. female here for cardiac catheterization. - proceed as planned - consent signed - no obvious CI to DAPT - FULL code documented in this encounter Miscellaneous Notes * Consult Note - Tavon Chan MD - 07/03/2015 5:27 PM EST Consult Mrs. Amador is being referred for consideration [...] went through a full workup with her castings trimmer, which ultimately led to a cardiac catheterization. [...] her hospital stay as well as her residential recovery. Mrs. Amador is going to leave the hospital, go through preadmission testing, and then come back for her surgery on 07/24/2015. She has been advised that if she has increasing symptoms and/or symptoms of chest pain that she should call the hospital or dial 911. She seems to understand this. Date of surgery was set. * Plan of Care - Maddie Gee RN - 07/02/2015 5:55 AM EST Problem: General Plan of Care Goal: Plan of Care Review Outcome: Ongoing (Interventions Implemented as Appropriate) 07/02/15 0550 Plan of Care Review Plan of Care Outcome Status ongoing (interventions implemented as appropriate) Progress progress towards functional goals is fair Coping/Psychosocial Response Interventions Plan of Care Reviewed with patient S/p cardiac cath. Issue with ramon BP upon admission to [facility]. Patient agreed to take Norvasc and additional labetalol dose to control BP. BP better after labetalol. Patient slept well overight with stable BP. Right groin site soft and no hematoma noted. Patient denies any discomfort this shift. Will continue to Monitor. * Plan of Care - Lula Arreguin RN - 07/01/2015 8:55 PM EST Problem: Cardiac Catheterization with/without PCI (Adult) Goal: Signs and symptoms of listed potential problems will be absent or manageable (reference (Cardiac Catheterization with/without PCI (Adult)) CPG) Outcome: Ongoing (Interventions Implemented as Appropriate) 07/01/152043 Cardiac Catheterization with/without PCI Problems Assessed (Cardiac Catheterization with/without PCI) all Problems Present (Cardiac Catheterization with/without PCI) vascular access site complications OUTCOME EVALUATION NOTE: OUTCOME SUMMARY: Pt's right groin cath site had small ooze upon arrival from pathology lab technician, manual pressure held 10 min, gauze and tape replaced, then [address] Moe and Dr. Edwards to bedside for assessment. No further ooze at this time. Bedrest extended to 8 PM. Blood pressure hyptertensive SBP>220, MD aware. Re- checked BP 30 min later, remained elevated; sub-lingual nitro ordered, administered x1. SBP lowered to 170s. Norvasc 10 mg ordered, pharmacist contacted for STAT delivery; norvasc administered. Report given to shift commander RN. aware of current status, will follow up with oncoming nurse. PLAN MOVING FORWARD: Continue monitoring BP and groin site INDIVIDUALIZED FALL PREVENTION: Assistance: Bedrest Supervision: Purposeful rounding Surveillance: Telemetry; visible from nurses' station CPG GOAL OUTCOME EVALUATION: documented in this encounter Plan of Treatment Scheduled Orders Name Type Priority Associated Diagnoses Orde r Schedule EKG 12 Lead ECG STAT ASCVD (arteriosclerotic cardiovascular disease) One Time for 1 Occurrences starting 07/02/2015 until 07/02/2015 documented as of this encounter Procedures Procedure Name Priority Date/Time Associated Diagnosis Comments MANUFACTURING TEAM MEMBER SCAN 07/03/2015 12:00 AM EST CARDIAC CATH SCAN 07/03/2015 12: 00 AM EST CARDIAC ENZYMES ([facility] Routine 07/02/2015 1:20 PM EST ECHO COMPLETE Routine 07/02/2015 10:44 AM EST ASCVD (arteriosclerotic cardiovascular disease) EKG 12-LEAD Timed 07/02/2015 7:39 AM EST Abnormal stress test ASCVD (arteriosclerotic cardiovascular disease) BMP W/FASTING GLUCOSE STAT 07/02/2015 7:07 AM EST ASCVD (arteriosclerotic cardiovascular disease) HEMOGRAM STAT 07/02/2015 7:07 AM EST ASCVD (arteriosclerotic cardiovascular disease) DIFFERENTIAL, AUTOMATED STAT 07/02/2015 7:07 AM EST ASCVD (arteriosclerotic cardiovascular disease) CARDIAC ENZYMES ([facility] STAT 07/02/2015 7:07 AM EST APTT Routine 07/02/2015 7:07 AM EST PROTHROMBIN TIME Routine 07/02/2015 7:07 AM EST CBC (WITH DIFF) STAT 07/02/2015 7:07 AM EST ASCVD (arteriosclerotic cardiovascular disease) LIPID PANEL (REFLEX DIRECT LDL) STAT 07/02/2015 7:07 AM EST EKG 12-LEAD Routine 07/01/2015 11:31 AM EST ASCVD (arteriosclerotic cardiovascular disease) documented in this encounter Results * SCAN DOC: CARDIAC CATH (07/03/2015 12:00 AM EST) Anatomical Region Laterality Modality Other Scanning Provider MEDIA MGR SCAN EXT O RDR/RSLT * SCAN DOC: MANUFACTURING TEAM MEMBER (07/03/2015 12:00 AM EST) Anatomical Region Laterality Modality Other Scanning Provider MEDIA MGR SCAN EXT O RDR/RSLT * Cardiac Enzymes (07/02/2015 1:20 PM EST) Troponin-T <0.03 <=0.03 ng/mL [facility] Comment: 0.03 ng/mL: Represents the 99th percentile upper reference limit for normals. >0.03 ng/mL: Elevated cardiac troponin T level indicative of myocardial damage. Diagnosis of acute, evolving or recent MO requires a typical rise and gradual fall [...] consensus document of the Joint Society of Cardiology/[place] College [employer] Cardiology Committee for the redefinition of myocardial infarction. ??Journal of the [place] College [employer] Cardiology 2000; 36: 959-969] Creatine Kinase 125 0 - 160 unit/L CARISSA LOLAEDUARDAIUM Blood specimen (specimen) 07/02/2015 1:20 PM EST 07/02/2015 1:40 PM EST Narrative Resulting Agency Comment Spec In Lab Tra Moe MD CHEMISTRY ORDERABLES CARISSA HAHN * ECHO COMPLETE (07/02/2015 10:44 AM EST) EF 65 HEARTLAB SYSTEM Anatomical Region Laterality Modality Other 07/02/2015 Narrative 07/02/2015 2:40 PM EST Procedure: ?Transthoracic Echocardiogram Patient: ?TOMMY HDEZ L ?(Age): 1935(79y) Med Rec#: ? [id number] ?Sex: ?F ? Site Loc: ? [facility] ?Ht / Wt: ??154(cm)/75(kg) Pt. Loc: ?[facility] ? BSA: ?1.73 Study Date: ?? 07/02/2015 ?Pt. Type: Inpatient Tape: ? Referring: Dean Tilley ([id number]) Reading: Jose Luis Simeon ([id number]) Painter Helper Sign: Africa Carpio [facility] Diagnosis: *ICD-10-PCS Atherosclerotic heart disease of [place] coronary artery without angina pectoris (I25.10) CPT Codes: *Echo Full (38426) *Spectral Doppler (13452) *Color Doppler (21580) Rhythm: ? Sinus BP: ? 156/51 SUMMARY: 1. The left ventricular chamber size is normal. Moderate concentric left ventricular hypertrophy is observed. There is normal global left ventricular systolic function. ??Ejection fraction is estimated to be 65% with no left ventricular segmental wall motion abnormalities. 2. Right ventricular chamber size, wall thickness, and systolic function are within normal limits. 3. The left atrium is mildly dilated. The right atrium appears normal. 4. The aortic valve leaflets are mildly thickened. There is no evidence of aortic valve stenosis. 5. The pericardium appears normal and there is no evidence of a pericardial effusion. FINDINGS: ? Left Ventricle ?The left ventricular chamber size is normal. ?Moderate concentric left ventricular hypertrophy is observed. ?There is normal global left ventricular systolic function. ??Ejection fraction is estimated to be 65%. ?There are no left ventricular segmental wall motion abnormalities. ?Doppler assessment is consistent with elevated left sided filling pressure. Left Atrium ?The left atrium is mildly dilated. Right Ventricle ?Right ventricular chamber size, wall thickness, and systolic function are within normal limits. ?Pulmonary artery hypertension could not be assessed due to inadequate tricuspid regurgitation jet. ?The estimated right atrial pressure is 8 mmHg. Right Atrium ?The right atrium appears normal. Aortic Valve ?The aortic valve is tricuspid. ?The aortic valve leaflets are mildly thickened. ?Systolic excursion of the aortic valve is normal. ?There is aortic annular calcification. ?There is no evidence of aortic valve stenosis. ?There is a trace of aortic regurgitation present. Mitral Valve ?Mild mitral leaflet calcification is visualized. ?There is mitral annular calcification. ?There is trace mitral regurgitation present. Tricuspid Valve ?The tricuspid valve appears normal in structure and function. ?There is no evidence of tricuspid valve regurgitation present. Pulmonic Valve ?The pulmonic valve is not well visualized. ?There is no evidence of pulmonic regurgitation. Pericardium ?The pericardium appears normal and there is no evidence of a pericardial effusion. Aorta ?The aortic root is normal in size. ?The ascending aorta is normal in size. Pulmonary Artery ?The main pulmonary artery is not well visualized. Venous ?The inferior vena cava appears dilated. ?There is a greater than 50% respiratory change in the inferior vena cava dimension. Misc ?Two-dimensional echo, spectral Doppler and color Doppler performed. Chambers 2D ?Value ?Units (Range) ? IVSd (2D) ? 1.5 ?cm ? LVPWd (2D) ?1.2 ?cm ? LVIDd (2D) ?4.7 ?cm ? LVIDs (2D) ?2.7 ?cm ? LV FS (2D) ?43 ? % ? Ao root diameter (2D3.1 ?cm (2.1 - 3.6) ? Ascending Ao ?3.2 ?cm (2 - 3.5) ? Volumes/Mass ?Value ?Units (Range) ? LA Area 4 CH ?18.8 ? cm2 (<21) ? LA ESV BP (A/L) inde40.7 ? ml/m2 ? RA AREA 4CH ? 15.6 ? cm2 ? LV mass (2D) ?243.3 ?g ? LV mass (2D) index ??140.6 ?g/m2 ? Diastolic/Systolic Function ?Value ?Units (Range) ? MV E-wave Vmax ?1 ?m/sec ? MV deceleration [id number] ?msec ? MV A-wave Vmax ?1.3 ?m/sec ? MV E:A ratio ?0.8 ?ratio ? LV septal e' Vmax ?? 0.1 ?m/sec ? LV E:e' septal ratio18.7 ? ratio ? Tricuspid Valve ?Value ?Units (Range) ? RAP ? 8 ?mmHg ? Measurement Trending Name ? 07/02/2015 ? LVIDd (2D) ? 4.7 LVIDs (2D) ? 2.67 This report has been electronically signed by: Jose Luis Simeon M.D. ? 07/02/2015 14:39:09 Images reviewed and interpretation verified [facility] Cardiac Ultrasound Laboratory Procedure Note Jose Luis Simeon MD - 07/02/2015 Procedure: Transthoracic Echocardiogram Patient: TOMMY GONZALEZ(Age): 1935(79y) Med Rec#: [id number] Sex: F [place] [facility] Ht / Wt: 154(cm)/75(kg) Pt. Loc: [facility] BSA: 1.73 Study Date: 07/02/2015 Pt. Type: Inpatient Tape: Referring: Dean Tilley ([id number]) Reading: Jose Luis Simeon ([id number]) Painter Helper Sign: Africa Carpio [facility] Diagnosis: *ICD-10-PCS Atherosclerotic heart disease of [place] coronary artery without angina pectoris (I25.10) CPT Codes: *Echo Full (78196) *Spectral Doppler (49677) *Color Doppler (45761) Rhythm: Sinus BP: 156/51 SUMMARY: 1. The left ventricular chamber size is normal. Moderate concentric left ventricular hypertrophy is observed. There is normal global left ventricular systolic function. Ejection fraction is estimated to be 65% with no left ventricular segmental wall motion abnormalities. 2. Right ventricular chamber size, wall thickness, and systolic function are within normal limits. 3. The left atrium is mildly dilated. The right atrium appears normal. 4. The aortic valve leaflets are mildly thickened. There is no evidence of aortic valve stenosis. 5. The pericardium appears normal and there is no evidence of a pericardial effusion. FINDINGS: Left Ventricle The left ventricular chamber size is normal. Moderate concentric left ventricular hypertrophy is observed. There is normal global left ventricular systolic function. Ejection fraction is estimated to be 65%. There are no left ventricular segmental wall motion abnormalities. Doppler assessment is consistent with elevated left sided filling pressure. Left Atrium The left atrium is mildly dilated. Right Ventricle Right ventricular chamber size, wall thickness, and systolic function are within normal limits. Pulmonary artery hypertension could not be assessed due to inadequate tricuspid regurgitation jet. The estimated right atrial pressure is 8 mmHg. Right Atrium The right atrium appears normal. Aortic Valve The aortic valve is tricuspid. The aortic valve leaflets are mildly thickened. Systolic excursion of the aortic valve is normal. There is aortic annular calcification. There is no evidence of aortic valve stenosis. There is a trace of aortic regurgitation present. Mitral Valve Mild mitral leaflet calcification is visualized. There is mitral annular calcification. There is trace mitral regurgitation present. Tricuspid Valve The tricuspid valve appears normal in structure and function. There is no evidence of tricuspid valve regurgitation present. Pulmonic Valve The pulmonic valve is not well visualized. There is no evidence of pulmonic regurgitation. Pericardium The pericardium appears normal and there is no evidence of a pericardial effusion. Aorta The aortic root is normal in size. The ascending aorta is normal in size. Pulmonary Artery The main pulmonary artery is not well visualized. Venous The inferior vena cava appears dilated. There is a greater than 50% respiratory change in the inferior vena cava dimension. [facility] Two-dimensional echo, spectral Doppler and color Doppler performed. Chambers 2D Value Units (Range) IVSd (2D) 1.5 cm LVPWd (2D) 1.2 cm LVIDd (2D) 4.7 cm LVIDs (2D) 2.7 cm LV FS (2D) 43 % Ao root diameter (2D3.1 cm (2.1 - 3.6) Ascending Ao 3.2 cm (2 - 3.5) Volumes/Mass Value Units (Range) LA Area 4 CH 18.8 cm2 (<21) LA ESV BP (A/L) inde40.7 ml/m2 RA AREA 4CH 15.6 cm2 LV mass (2D) 243.3 g LV mass (2D) index 140.6 g/m2 Diastolic/Systolic Function Value Units (Range) MV E-wave Vmax 1 m/sec MV deceleration zlxj198.2 msec MV A-wave Vmax 1.3 m/sec MV E:A ratio 0.8 ratio LV septal e' Vmax 0.1 m/sec LV E:e' septal ratio18.7 ratio Tricuspid Valve Value Units (Range) RAP 8 mmHg Measurement Trending Name 07/02/2015 LVIDd (2D) 4.7 LVIDs (2D) 2.67 This report has been electronically signed by: Jose Luis Simeon M.D. 07/02/2015 14:39:09 Images reviewed and interpretation verified [facility] Cardiac Ultrasound Laboratory Dean Tilley MD ECHO ORDERABLES * EKG 12 Lead (07/02/2015 7:39 AM EST) Ventricular rate 53 BPM MUSE SYSTEM Atrial Rate 53 BPM MUSE SYSTEM P-R Interval 184 ms MUSE SYSTEM QRS Duration 104 ms MUSE SYSTEM Q-T Interval 464 ms MUSE SYSTEM QTC Calculated (Bezet) 435 ms MUSE SYSTEM Calculated P [place] 39 degrees MUSE SYSTEM Calculated R [place] -48 degrees MUSE SYSTEM Calculated T [place] 108 degrees MUSE SYSTEM INTERPRETATION Sinus bradycardia Left axis deviation Possible Anterior infarct (cited on or before 03-APR-2004) ST & T wave abnormality, consider lateral ischemia Abnormal ECG When compared with ECG of 01-JUL-2015 11:31, No significant change was found Confirmed by MD DIEGO, RUBEN ([id number]) on 07/03/2015 9:17:46 AM MUSE SYSTEM 07/02/2015 7:39 AM EST 07/03/2015 9:17 AM EST Tra Moe MD ECG ORDERABLES MUSE SYSTEM * (ABNORMAL) Lipid panel (fasting) (07/02/2015 7:07 AM EST) Cholesterol, Total 178 <=199 mg/dL [facility] Comment: Recommendations of the NCEP Adult Treatment Panel for the following risk cutoff thresholds for the [place] population: Desirable: <200 mg/dL Borderline High: 200-239 mg/dL High: > or = 240 mg/dL Triglyceride 115 <=149 mg/dL [facility] Comment: Reference Range: Normal triglycerides: ??<150 mg/dL Borderline high: ??150-199 mg/dL High: ??200-499 mg/dL Very high: ??>sz=418 mg/dL BUTCH 2001; 285(19):2251-7635 HDL Cholesterol 45 >=40 mg/dL [facility] N[facility] MILLENNIUM Comment: Reference range: ??Low HDL: ?? < 40 mg/dL ??Normal: ?40-60 mg/dL ??Desirable: > 60 mg/dL BUTCH 2001; 285(19):4656-4661 LDL Cholesterol 110(H) <=99 mg/dL [facility] Comment: Reference range: ?? Optimal: ?<100 mg/dL ?? Near Optimal/Above Optimal: ?? 100-129 mg/dL ?? Borderline high: ?130-159 mg/dL ?? High: ? 160-189 mg/dL ?? Very high: ?>he=338 mg/dL BUTCH 2001: 285(19):7376-1819 Cholesterol/HDL Ratio 4.0 ratio [facility] Comment: A Cholesterol to HDL ratio below 4:1 is desirable. ??Studies suggest that increased CAD risk occurs at ratios above 5 for females and above 6 for men. ? [place] Heart Association ??(http://www.americanheart.org) ? Mel Int Med, 1994; 121:641 ? AM J Med, 1998; 105(1A):48S Blood specimen (specimen) Venous Draw / Unknown 07/02/2015 7:07 AM EST 07/02/2015 7:17 AM EST Narrative Resulting Agency Comment Spec In Lab Chon Lundberg II, MD CHEMISTRY ORDER ALIYA CARISSA HAHN * Prothrombin Time (07/02/2015 7:07 AM EST) Prothrombin Time 13.3 12.0 - 15.0 sec CARISSA SHAHIUM Comment: Transfusion Committee Guidelines: INR less than 2.0, PTT less than OR equal to 43.5 seconds, or Fibrinogen greater than or equal to 100 mg/dl indicate adequate procoagulant activity for hemostasis in patients without underlying bleeding disorders. International Normalization Ratio 1.0 0.9 - 1.1 CERCHIARA DAVILAENNIUM Blood specimen (specimen) Venous Draw / Unknown 07/02/2015 7:07 AM EST 07/02/2015 7:14 AM EST Narrative Resulting Agency Comment Spec In Lab Tra Moe MD HEMATOLOGY ORDERABLE S Performing Organization Address [facility] Co de Phone Number CARISSA SHAHIUM * Cardiac Enzymes (07/02/2015 7:07 AM EST) Troponin-T <0.03 <=0.03 ng/mL CERCHIARA DAVILAENNIUM Comment: 0.03 ng/mL: Represents the 99th percentile upper reference limit for normals. >0.03 ng/mL: Elevated cardiac troponin T level indicative of myocardial damage. Diagnosis of acute, evolving or recent MO requires a typical rise and gradual fall [...] consensus document of the Joint Society of Cardiology/[place] [employer]iology Committee for the redefinition of myocardial infarction. ??Journal of the [place] College [employer] Cardiology 2000; 36: 959-969] Creatine Kinase 110 0 - 160 unit/L CERCHIARA DAVILAENNIUM Blood specimen (specimen) Venous Draw / Unknown 07/02/2015 7:07 AM EST 07/02/2015 7:14 AM EST Narrative Resulting Agency Comment Spec In Lab Chon Lundberg II, MD CHEMISTRY ORDER ALIYA Performing Organization Address [facility] Co de Phone Number CARISSA SHAHCorMatrix * APTT (07/02/2015 7:07 AM EST) Partial Thromboplastin Time 31 25 - 35 sec CERNER MILLENNIUM Comment: Recommended therapeutic PTT range for full dose unfractionated heparin is 80-114 seconds. Blood specimen (specimen) 07/02/2015 7:07 AM EST 07/02/2015 7:14 AM EST Narrative Resulting Agency Comment Spec In Lab Tra Moe MD HEMATOLOGY ORDERABLE S CERNER MILLENNIUM * (ABNORMAL) Differential, Automated (07/02/2015 7:07 AM EST) Pathologist [facility] Neutrophil % 73.7 % CERNER MILLENNIUM Neutrophil Absolute 6.35(H) 1.50 - 6.30 x10(3)/mc L CERNER MILLENNIUM Lymph % 17.0 % CERNER MILLENNIUM Lymphocytes Abs 1.5 1.0 - 3.6 x10(3)/mc L CERNER MILLENNIUM Monocyte % 6.3 % CERNER MILLENNIUM Monocyte Abs 0.5 0.2 - 1.0 x10(3)/mc L CERNER MILLENNIUM Eos % 2.6 % CERNER MILLENNIUM Eosinophils Abs 0.2 0.0 - 0.5 x10(3)/mc L CERNER MILLENNIUM Basophil % 0.2 % CERNER MILLENNIUM Baso Absolute 0.0 0.0 [...] x10(3)/mc L CERNER MILLENNIUM Blood specimen (specimen) 07/02/2015 7:07 AM EST 07/02/2015 7:14 AM EST Narrative Resulting Agency Comment Spec In Lab Chon Lundberg II, MD HEMATOLOGY BYRON GUTHRIE CERCHIARA DAVILAENNIUM * (ABNORMAL) Hemogram (07/02/2015 7:07 AM EST) White Blood Cell 8.6 4.0 - 10.0 x10(3)/mc L CERNER MILLENNIUM Red Blood Cell 5.04 3.93 - 5.22 x10(6)/mc L CERNER MILLENNIUM Hemoglobin 13.5 11.2 - 15.7 gm/dL CERNER MILLENNIUM Hematocrit 40.8 34.0 - 45.0 % CERNER MILLENNIUM Mean Cell Volume 81.0 79.0 - 94.0 fL CERNER MILLENNIUM Mean Cell Hemoglobin 26.8 26.6 - 32.2 pg CERNER MILLENNIUM Mean Cell Hemoglobin Concentration 33.1 32.0 - 36.5 gm/dL CERNER MILLENNIUM Platelet 160 145 - 370 x10(3)/mc L CERNER MILLENNIUM RDW Standard Deviation 45.1 35.0 - 46.0 fL CERNER MILLENNIUM RDW coefficient of variation 15.4(H) 10.9 - 14.4 % CERNER MILLENNIUM Mean Platelet Volume 10.3 9.0 - 12.0 fL CERNER MILLENNIUM Blood specimen (specimen) 07/02/2015 7:07 AM EST 07/02/2015 7:14 AM EST Narrative Resulting Agency Comment Spec In Lab Chon Lundberg II, MD HEMATOLOGY BYRON GUTHRIE Performing Organization Address [facility]/State/ZIP Co de Phone Number CARISSA SHAHIUM * BMP w/fasting Glucose (07/02/2015 7:07 AM EST) Glucose Fasting 99 65 - 99 mg/dL CERNER MILLENNIUM Comment: ?Fasting* Glucose Interpretive Criteria Normal ?65-99 [...] of Diabetes Mellitus, Position Statement from the [place] Diabetes Association. ??Diabetes Care, Volume 33, Supplement 1, Aug 2009 Blood Urea Nitrogen 12 8 - 18 mg/dL CERNER MILLENNIUM Creatinine 0.70 0.70 - 1.20 mg/dL CERNER MILLENNIUM Comment: Please note that the pediatric reference intervals supplied above were not validated at [facility]. Results from pediatric patients should be interpreted [...] Laboratory if there are any questions. Chloride 101 98 - 107 mmol/L CERNER MILLENNIUM Carbon Dioxide 26 22 - 31 mmol/L CERNER MILLENNIUM Anion Gap 13 5 - 15 mmol/L CERNER MILLENNIUM Calcium 8.6 8.5 - 10.5 mg/dL CERNER MILLENNIUM Est [...] the following links into your internet browser. [email or web address] Blood specimen (specimen) 07/02/2015 7:07 AM EST 07/02/2015 7:14 AM EST Narrative Resulting Agency Comment Spec In Lab Chon Lundberg II, MD CHEMISTRY ORDER ALIYA CARISSA HAHN * EKG 12 Lead (07/01/2015 11:31 AM EST) Ventricular rate 69 BPM MUSE SYSTEM Atrial Rate 69 BPM MUSE SYSTEM P-R Interval 184 ms MUSE SYSTEM QRS Duration 110 ms MUSE SYSTEM Q-T Interval 402 ms MUSE SYSTEM QTC Calculated (Bezet) 430 ms MUSE SYSTEM Calculated P [place] 60 degrees MUSE SYSTEM Calculated R [place] -50 degrees MUSE SYSTEM Calculated T [place] 109 degrees MUSE SYSTEM INTERPRETATION Normal sinus rhythm Left axis deviation Incomplete right bundle branch block Cannot rule out Inferior infarct , age undetermined Anterior infarct (cited on or before 03-APR-2004) Abnormal ECG When compared with ECG of 03-APR-2004 13:37, No significant change was found Confirmed by MD Latasha, Jairon ([id number]) on 07/01/2015 2:34:26 PM MUSE SYSTEM 07/01/2015 11:3 1 AM EST 07/01/2015 2:34 PM EST Doug Mata MD ECG ORDERABLES MUSE SYSTEM documented in this encounter Visit Diagnoses Diagnosis ASCVD (arteriosclerotic cardiovascular disease) Unspecified cardiovascular disease ASCVD (arteriosclerotic cardiovascular disease) Unspecified cardiovascular disease Abnormal stress test Other nonspecific abnormal cardiovascular system function study CAD (coronary artery disease) Coronary atherosclerosis of unspecified type of vessel, [place] or graft Hypertension Unspecified essential hypertension documented in this encounter Administered Medications Inactive Administered Medications - up to 3 most recent administrations Medication Order MAR Action Action Date Dose Rate Site fentaNYL 50 mcg/mL multi-dose injection ONCE PRN, Starting on Tue07/01/15 at 1207, Until Tue07/01/15 at 1306, Cath (Intra-Procedure), Routine Given 07/01/2015 12:54 PM EST 25 mcg Left Arm Given 07/01/2015 12:07 PM EST 25 mcg heparin (porcine) injection ONCE PRN, Starting on Tue07/01/15 at 1214, Until Tue07/01/15 at 1306, Cath (Intra-Procedure), Routine Given 07/01/2015 12:14 PM EST 2,000 Units Left Arm iohexol (OMNIPAQUE) 350 mg/mL solution ONCE PRN, Starting on Tue07/01/15 at 1300, Until Tue07/01/15 at 1306, Cath (Intra-Procedure), Routine Given 07/01/2015 1:00 PM EST 105 mLs meTOPROLOL (LOPRESSOR) injection ONCE PRN, Starting on Tue07/01/15 at 1258, Until Tue07/01/15 at 1306, Cath (Intra-Procedure), Routine Given 07/01/2015 12:58 PM EST 5 mg Left Arm midazolam (PF) (VERSED) 1 mg/mL multi-dose injection ONCE PRN, Starting on Tue07/01/15 at 1207, Until Tue07/01/15 at 1306, Cath (Intra-Procedure), Routine Given 07/01/2015 12:07 PM EST 1 mg niCARdipine 0.2 mg/mL (Standard Adult and Cate greater than 20 kg) infusion CONTINUOUS PRN, Starting on Tue07/01/15 at 1214, Until Tue07/02/15 at 0637, Intra-Operative (Intra-Procedure), Routine Rate/Dose Change 07/01/2015 1:44 PM EST 2.5 mg/hr 12.5 mL/hr Rate/Dose Change 07/01/2015 1:37 PM EST 5 mg/hr 25 mL/h r Rate/Dose Change 07/01/2015 12:39 PM EST 7.5 mg/hr 37.5 m L/hr Left Arm documented in this encounter Active and Recently Administered Medications Times are shown in EST. Scheduled Medication Order 06/30/2015 07/01/2015 07/02/2015 amLODIPine (NORVASC) tablet 10 mg (CANCELED) 10 mg, Oral, DAILY, First dose on Tue07/01/15 at 1900, Until Discontinued, STAT 1945 (Given - Provider: Lula Arreguin RN) amLODIPine (NORVASC) tablet 10 mg (CANCELED) 10 mg, Oral, DAILY, First dose (after last modification) on Tue07/02/15 at 0900, Until Discontinued, Routine 0840 (Given - Provid er: Erlinda Bundy RN) aspirin EC tablet 81 mg 81 mg, Oral, DAILY, First dose on Tue07/02/15 at 0930, Until Discontinued, Routine 1052 (Given - Provid er: Erlinda Bundy RN) aspirin tablet 325 mg (CANCELED) 325 mg, Oral, DAILY, First dose on Tue07/01/15 at 1000, Until Discontinued, Routine 1123 (Given - Provider: Laine Redding, LENKA) atorvastatin (LIPITOR) tablet 80 mg 80 mg, Oral, EVERY EVENING, First dose on Tue07/02/15 at 1700, Until Discontinued, Routine diaZEPam (VALIUM) tablet 5 mg (COMPLETED) 5 mg, Oral, ONCE, 1 dose, On Tue07/01/15 at 1045, Cath (Day of Procedure), Routine 1124 (Given - Provider: Laine Redding RN) diphenhydrAMINE (BENADRYL) capsule 25 mg (COMPLETED) 25 mg, Oral, ONCE, 1 dose, On Tue07/01/15 at 1045, Cath (Day of Procedure), Routine 1126 (Given - Provider: Laine Redding RN) labetalol (NORMODYNE,TRANDATE) injection 20 mg (COMPLETED) 20 mg, Intravenous, ONCE, 1 dose, On Tue07/01/15 at 2145, STAT 2207 (Given - Provider: Maddie Gee RN - Comment: per Dr Tra Moe. give only 10mg iv x 1) lisinopril (PRINIVIL;ZESTRIL) tablet 5 mg 5 mg, Oral, DAILY, First dose on Tue07/02/15 at 1100, Until Discontinued, Routine 1154 (Given - Provid er: Erlinda Bundy RN) meTOPROLOL succinate (TOPROL-XL) XL tablet 50 mg 50 mg, Oral, DAILY, First dose (after last modification) on Tue07/02/15 at 0900, Until Discontinued, Hold if HR < 55 or SBP <90, Routine 0840 (Given - Provid er: Erlinda Bundy RN) sodium chloride 0.9 % flush 5 mL (CANCELED) 5 mL, Intravenous, EVERY 12 HOURS, First dose on Tue07/01/15 at 1045, Until Discontinued, Cath (Day of Procedure), Routine 1045 (Not Given - Provider: Lula Arreguin RN - Reason: See comment - Comment: unknown if given in pathology lab technician)2201 (Given - Provider: Maddie Gee RN) Continuous Medication Order 06/30/2015 07/01/2015 07/02/2015 sodium chloride 0.9% infusion (CANCELED) 50 mL/hr, Intravenous, CONTINUOUS, Starting on Tue07/01/15 at 1045, Until Tue07/01/15 at 1308, Cath (Day of Procedure) 1045 (New Bag - Provider: Laine Redding RN) sodium chloride 0.9% infusion (CANCELED) 125 mL/hr, Intravenous, CONTINUOUS, Starting on Tue07/01/15 at 1330, Until Tue07/01/15 at 2201 1330 (New Bag - Provider: Sa kamari Weaver RN) PRN Medication Order 06/30/2015 07/01/2015 07/02/2015 fentaNYL 50 mcg/mL multi-dose injection (CANCELED) ONCE PRN, Starting on Tue07/01/15 at 1207, Until Tue07/01/15 at 1306, Cath (Intra-Procedure), Routine 1207 (Given - Provider: Liliam Pinedo RN)1254 (Given - Provider: Liliam Pinedo RN) heparin (porcine) injection (CANCELED) ONCE PRN, Starting on Tue07/01/15 at 1214, Until Tue07/01/15 at 1306, Cath (Intra-Procedure), Routine 1214 (Given - Provider: Liliam Pinedo RN) iohexol (OMNIPAQUE) 350 mg/mL solution (CANCELED) ONCE PRN, Starting on Tue07/01/15 at 1300, Until Tue07/01/15 at 1306, Cath (Intra-Procedure), Routine 1300 (Given - Provider: Chon Lundberg II) meTOPROLOL (LOPRESSOR) injection (CANCELED) ONCE PRN, Starting on Tue07/01/15 at 1258, Until Tue07/01/15 at 1306, Cath (Intra-Procedure), Routine 1258 (Given - Provider: Liliam Pinedo RN) midazolam (PF) (VERSED) 1 mg/mL multi-dose injection (CANCELED) ONCE PRN, Starting on Tue07/01/15 at 1207, Until Tue07/01/15 at 1306, Cath (Intra-Procedure), Routine 1207 (Given - Provider: Liliam Pinedo, LENKA) niCARdipine 0.2 mg/mL (Standard Adult and Cate greater than 20 kg) infusion (CANCELED) CONTINUOUS PRN, Starting on Tue07/01/15 at 1214, Until Tue07/02/15 at 0637, Intra-Operative (Intra-Procedure), Routine 1214 (Rate/Dose Change - Provider: Liliam Pinedo RN)1239 (Rate/Dose Change - Provider: Liliam Pinedo RN)1337 (Rate/Dose Change - Provider: Cinthya Weaver RN)1344 (Rate/Dose Change - Provider: Cinthya Weaver RN)1407 (Stopped - Provider: Cinthya Weaver RN) nitroGLYcerin (NITROSTAT) SL tablet 0.4 mg 0.4 mg, Sublingual, EVERY 5 MIN PRN, Chest pain, Starting on Tue07/01/15 at 1840, Until Tue07/02/15 at 1421, SL nitroglycerin may be repeated every 5 minutes as needed up to 3 doses 1845 (Given - Provider: Topher Arreguin RN) documented in this encounter
--- OUTSIDE RECORDS SUMMARY | 2024-03-29 03:37 | XMS_ITS | Encounter Summary ---
Author Organization [facility] Address [address] [place] [address] Care Team Providers Care Audio/Visual Operator Name Role Phone Jacob Foley Primary Care Provider [phone]- [phone] Encounter Details Date Type Department Care Team (Late st Contact Info) Description 02/01/2020 Lab Requisition [facility] Pathology & Laboratory Medicine - [facility] [address] [place] [address] Ricky Rojas MD [address] [place] [address] [address] [place], [place] [id number] Encounter for other general examination Social History Tobacco Use Types Packs/Day Years Used Date Smoking Tobacco: Never Assessed Sex and Gender Information Value Date Recorded Sex Assigned at Not on file Gender Identity Not on file Sexual Orientation Not on file documented as of this encounter Plan of Treatment Not on file documented as of this encounter Procedures Procedure Name Priority Date/Time Associated Diagnosis Comments SURGICAL PATHOLOGY Today 02/01/2020 13 :30 EDT Encounter for other general examination documented in this encounter Results * SURGICAL PATHOLOGY (02/01/2020 13:30 EDT) Final Diagnosis A. 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 - Margins of excision postitive. - Lesion extends to the 9 o'clock peripheral margin. - Lesion measures 0.8 mm to the 3 o'clock peripheral margin. - Lesion measures 2.0 mm to the deep margin. 02/05/2020 13:53 EDT [facility] at 1353 Attestation By the signature below, the attending physician certifies that they have 1) personally conducted a gross and/or microscopic examination of the described specimen(s), and/or personally interpreted the results of laboratory testing of the described specimen(s), and 2) personally rendered or confirmed the above diagnosis. 02/05/2020 13:53 T [facility] at 1353 Diagnosis Comment These results were phoned to Dr. Rojas's office. 02/05/2020 13:53 T [facility] Clinical History Basal cell cancer? 02/05/2020 13:53 [facility] Gross Description A. Received in formalin labelled with proper patient identification (initials W, G) and skin lesion right arm is an oriented elliptical skin excision (1.5 x 0.7 cm and is excised to the depth of 0.2 cm). The specimen is oriented with a stitch at the inferior tip, arbitrarily designated as 6 o'clock. The epidermal surface is white and wrinkled with a central encrusted lesion (0.5 x 0.5 x 0.2 cm). The 3 o'clock half is inked blue and the 9 o'clock half is inked black. The specimen is serially sectioned from 12 to 6 o'clock and submitted entirely as follows: BLOCK [place] A1- 12 o'clock tip, reverse en face A2-A3- central sections A4- 6 o'clock tip, reverse en face 02/04/2020 8:22 02/05/2020 13:53 EDT [facility] Scanned Images 02/05/2020 13:53 EDT [facility] Tissue TISSUE SPECIMEN FROM SKIN / Unknown 02/01/2020 13:30 EDT 02/01/2020 22:07 EDT Ricky Rojas MD PATHOLOGY ORDERA DOMINGO [facility] [address] [place] [address] documented in this encounter Visit Diagnoses Diagnosis Encounter for other general examination documented in this encounter Care Teams Audio/Visual Operator Relationship Specialty Start Date End Date Jacob Foley DO [address] [place] [address] PCP - General 01/14/20 documented as of this encounter
--- OUTSIDE RECORDS SUMMARY | 2024-03-29 03:37 | XMS_ITS | Encounter Summary ---
Author Organization [facility] [place] [address] Care Team Providers Care Gravel Inspector Name Role Phone Unavailable Primary Care Provider Unavailabl e Reason for Visit * Reason Comments Skin Check Encounter Details Date Type Department Care Team (Late st Contact Info) Description 09/28/2012 1:45 PM EST Office Visit Dermatology [address] [place] [address] Aj Albright MD [address], [place] [address] Verruca vulgaris (Primary Dx); Seborrheic keratosis Social History Tobacco Use Types Packs/Day Years Used Date Smoking Tobacco: Former Sex and Gender Information Value Date Recorded Sex Assigned at Not on file Gender Identity Not on file Sexual Orientation Not on file documented as of this encounter Progress Notes * Aj Albright MD - 09/28/2012 2:21 PM EST Problem is skin check. Ginger follows up after last being seen in 2005. The wart on her right index finger never totally resolved. She would like to have that removed. Also she has some lesions she would like me to check on her nose and on her legs. Physical examination reveals mild actinic damage, not rising to the level of requiring therapy, on the left nasal sidewall and the bridge of the nose. She had a benign examination of the head and the neck. She has a number of seborrheic keratoses on her legs and one erythematous patch on the right lower anterior zuluaga. She does have a 3 x 5 mm verrucous papule on the right index finger laterally. Assessment and Plan: 1. Verruca vulgaris, right index finger laterally. a. LN2 times two applied to the site. b. Return to clinic in two to three weeks for repeat check. c. At patient request, we will continue to treat this until it resolves this time. 2. Benign seborrheic keratoses, back, legs. a. Patient reassured about benign seborrheic keratoses. No treatment necessary. 3. Erythematous patch, question actinic keratosis, right anterior zuluaga. a. LN2 times two applied to the site. Return to clinic in two to three weeks for repeat check. Patient reassured about remainder of benign skin examination. documented in this encounter Plan of Treatment Not on file documented as of this encounter Visit Diagnoses Diagnosis Verruca vulgaris- Primary Viral warts, unspecified Seborrheic keratosis Other seborrheic keratosis documented in this encounter
--- OUTSIDE RECORDS SUMMARY | 2024-03-29 03:37 | XMS_ITS | Encounter Summary ---
Author Organization [facility] Address [address] [place] [address] Care Team Providers Care Green Lumber Grader Name Role Phone OgJacob Primary Care Provider +1- [phone] Encounter Details Date Type Department Care Team (Late st Contact Info) Description 08/19/2021 Lab Requisition [facility] Pathology & Laboratory Medicine - [facility] [address] [place] [address] Outr Resulting Lab, Provider Social History Tobacco [...] Procedure Name Priority Date/Time Associated Diagnosis Comments SPEP, INCLUDES QUANTITATION OF MONOCLONAL SPIKE PERFORMABLE Today 08/19/2021 8:32 EST SPEP, INCLUDES QUANTITATION OF MONOCLONAL SPIKE Routine 08/19/2021 8:32 EST PROTEIN, TOTAL Today 08/19/2021 8:32 EST documented in this encounter Results * SPEP, INCLUDES QUANTITATION OF MONOCLONAL SPIKE PERFORMABLE (08/19/2021 8:32 EST) Albumin % 60.6 55.8 - 66.1 % 08/20/2021 11:58 EST [facility] Alpha-1 % 4.7 2.9 - 4.9 % 08/20/2021 11:58 [facility] Alpha-2 % 10.3 7.1 - 11.8 % 08/20/2021 11:58 [facility] Beta % 11.2 8.4 - 13.1 % 08/20/2021 11:58 [facility] Gamma % 13.2 11.1 - 18.8 % 08/20/2021 11:58 [facility] SPEP Comment No apparent monoclonal protein seen on serum electrophoresis 08/20/2021 11:58 [facility] Comment:See scanned/suppleme ntary report. Total Protein 6.8 6.3 - 8.2 g/dL 08/20/2021 11:58 [facility] Blood VENOUS BLOOD / Unknown 08/19/2021 8:32 EST 08/19/2021 21:22 EST Provider Outr Resulting Lab CHEMISTRY & BLOOD GAS ORDERABLES Performing Organization Address [facility] de Phone Number [facility] [address] [place] [address] * PROTEIN, TOTAL (08/19/2021 8:32 EST) Blood VENOUS BLOOD / Unknown 08/19/2021 8:32 EST 08/19/2021 21:22 EST Provider Outr Resulting Lab CHEMISTRY & BLOOD GAS ORDERABLES Performing Organization Address [facility] de Phone Number [facility] [address] [place] [address] documented in this encounter Visit Diagnoses Not on filedocumented in this encounter Care Teams Green Lumber Grader Relationship Specialty Start Date End Date Jacob Foley DO [address] [place] [address] PCP - General 01/14/20 documented as of this encounter
--- OUTSIDE RECORDS SUMMARY | 2024-03-29 03:37 | XMS_ITS | Encounter Summary ---
Author Organization [facility] Address [facility] [place] [address] Care Team Providers Care Inside Sales Associate Name Role Phone Unavailable Primary Care Provider Unavailabl e Reason for Visit * Auth/Cert - Closed Specialty Diagnoses / Procedures Referred By Kirk t Referred To Contact Diagnoses ASCVD Procedures CARDIAC CATHETERIZATION Referral ID Status Reason Start Date Expiration Date Visits Re quested Visits Authorized [id number] Closed 1 1 Encounter Details Date Type Department Care Team (Latest Contact Info) Description 07/02/2015 2:56 PM EST - 07/02/2015 11:59 PM [facility] Hospital Encounter XRay at [address] [place] [address] Tavon Chan MD [facility] [place] [address] Discharge Disposition: Home Social History Tobacco Use [...] 2 tablets by mouth daily. 30 tablet 07/02/2015 07/29/2015 aspirin 81 mg Tablet, Delayed [...] 07/28/2006 07/24/2015 documented as of this encounter Plan of [...] interpretation and agree with the findings, Lily Ballesetros at 07/02/2015 4:04 PM Narrative 07/02/2015 4:04 [...] ORDERABLES documented in this encounter Visit Diagnoses Not on filedocumented in this encounter
--- OUTSIDE RECORDS SUMMARY | 2024-03-29 03:37 | XMS_ITS | Encounter Summary ---
Author Organization [facility] Address [facility] [place] [address] Care Team Providers Care Data Abstractor Name Role Phone Unavailable Primary Care Provider Unavailabl e Reason for Visit * Auth/Cert - Closed Specialty Diagnoses / Procedures Referred By Contac t Referred To Contact Diagnoses ASCVD Procedures CARDIAC CATHETERIZATION Referral ID Status Reason Start Date Expiration Date Visits Re quested Visits Authorized [id number] Closed 1 1 Encounter Details Date Type Department Care Team (Late st Contact Info) Description 07/01/2015 8:57 AM EST - 07/02/2015 2:14 PM EST Hospital Encounter Card[facility] [place] [id number] Chon Lundberg II, MD [facility] [place] [address] Dean Tilley MD [facility] [place] [address] ASCVD (arteriosclerotic cardiovascular disease); Abnormal stress test Discharge Disposition: Home Social History Tobacco Use [...] Ginger Amador Patient Age: 79 y.o. Language: Swedish Race: White Ethnicity: Not nor Admit date: 07/01/2015 Discharge date and time: 07/02/2015 2:29 PM Attending Physician: Chon Lundberg MD Discharge Physician: Dean Tilley MD Follow-up Recommendations for Providers: Follow up blood pressure, titrate meds as needed Triple vessel disease seen on cardiac cath, surgery date for July 24, 2015 Inpatient Provider Contact Information: Belle Cosby, SENIOR COMMUNICATIONS SPECIALIST [phone] Discharge Diagnoses (Hospital Problems) and Secondary Diagnoses [...] ASCVD The patient went to the cardiac crime lab technician for a diagnostic cath after [...] appointments: During 8am-5pm Tuesday through Tuesday call [phone] to speak with a nurse in the cardiology clinic All other times call [phone] and ask to speak to the brand ambassador promotional model marketing database consultant. Return to work: One week Driving: May resume driving this afternoon, monitor groin for bleeding or pain. Follow up Appointments: PCP MARQUIS MANRIQUE DO July 15, 2015 at 3:[address] Jatin Wagner on Tuesday at 11:30 am, please call [phone] with anyquestions or concerns After discharge from hospital, please proceed to [address] clinic for pre- surgical testing per . Cardiac surgery July 24 please call [phone] with any questions or concerns Future Appointments Provider Department Dept Phone 07/02/2015 2:40 PM LAB, [facility] Lab [facility] [phone] Discharge References/Attachments CORONARY ANGIOGRAM : POST-OP (VIETNAMESE) documented in this encounter Discharge Instructions * Discharge Instructions* Bertha Cox APRN - 07/02/2015 2:29 PM EST Call your doctor if: Chest pain, shortness of breath, pain or swelling in legs occurs. If you have non-emergent questions between now and the time of your follow up appointments: During 8am-5pm Tuesday through Tuesday call [phone] to speak with a nurse in the cardiology clinic All other times call [phone] and ask to speak to the brand ambassador promotional model marketing database consultant. Return to work: One week Driving: May resume driving this afternoon, monitor groin for bleeding or pain. Follow up Appointments: PCP MARQUIS MANRIQUE DO July 15, 2015 at 3:[address] Jatin Wagner on Tuesday at 11:30 am, please call [phone] with anyquestions or concerns After discharge from hospital, please proceed to [address] clinic for pre- surgical testing per . Cardiac surgery July 24 please call [phone] with any questions or concerns * Attachments The following attachments cannot be sent through Care Everywhere. * CORONARY ANGIOGRAM : POST-OP (VIETNAMESE) documented in this encounter Medications at Time [...] number. Will drive self home, ok per AGRICULTURE INSPECTOR Belle. * Oma Ca RN - 07/02/2015 12:45 PM EST Office of Care Management Organizational Development Director Oma Ca RN, BSN -CM INITIAL ASSESSMENT [...] with LVEF 56% and no RWMAs. PCP:MARQUIS MANRIQUE, DO @PCPADDR@ [phone] CURRENT STATUS: Remains at baseline level of [...] TEAM CONSULTS: Not indicated at this time. MATERIAL WORKER: Not indicated at this time. ASSESSMENT/PLAN: Nursing assessment reviewed and spoke with patient. No new post hospital care needs have been identified. No concerns have been voiced by patient or family requiring CRC intervention. Will continue to be available should needs arise. * Belle Cosby, SENIOR COMMUNICATIONS SPECIALIST - 07/02/2015 9:43 AM EST Inpatient Cardiology Progress Note Patient Name: Ginger Amador Service: AGRICULTURE INSPECTOR / PA Responsible Attending: Dean Tilley MD [...] is normal. Lab Comments: Recent Labs 07/02/15 0707 07/01/15 0926 WBC 8.6 9.7 HGB 13.5 14.3 HCT 40.8 43.2 PLATELET 160 184 Recent Labs 07/02/15 0707 INR 1.0 Recent Labs 07/02/15 0707 07/01/15 0926 NA 140 140 K 4.2 4.2 CL 101 102 CO2 26 25 BUN 12 11 CREATININE 0.70 0.80 No results for input(s): AST, ALT, ALKPHOS, BILITOT, BILIDIR in the last 168 hours. Recent Labs 07/02/15 0707 07/01/15 0926 CALCIUM 8.6 9.3 Recent Labs 07/02/15 [...] with Dean Tilley MD Shannon C. Schachtner, SENIOR COMMUNICATIONS SPECIALIST 07/02/2015 Associated attestation - Dean Tilley MD - 07/02/2015 4:11 PM EST Cardiology Attending Addendum I shared this visit with Belle Cosby APRN, and guided the medical decision-making. More than 30 minutes were spent in [id number] contact with patient and with arranging discharge [...] She had a regadenson nuc stresstest @ [facility] on 06/23/15 which showed EF 56% & which was positive for ischemia with a reversible defect in the Lateral Wall. She saw Roseann Sarabia in Cardio clinic on 07/01/15 for an evaluation prior to elective cath. Cath today with Dr. Lundberg revealed 60% mLAD, 1005 pLCX & 60% OstRCA. In the crime lab technician she had briefly required Nicardipine [...] was found to have 3VD with: - CHANGE MANAGEMENT of the proximal LCX - ostial OM1 [...] 140-160-180 - reviewed patient and plan with AGRICULTURE INSPECTOR service * Vahid Miller RN - 07/01/2015 10:00 AM EST ABSORB IV ENROLLMENT NOTE ABSORB IV RANDOMIZED CONTROLLED TRIAL A Clinical Evaluation of Absorb??? BVS, the Everolimus Eluting Bioresorbable Vascular Scaffold in the Treatment of Subjects with de gael [place] Coronary Artery Lesions PI: Steven Colby MD Pager #:[phone] Consent: Following the determination this potential participant [...] caused by up to three de gael [place] coronary artery lesions in two separate epicardial [...] went through a full workup with her speech language assistant, which ultimately led to a cardiac catheterization. [...] her hospital stay as well as her retirement recovery. Mrs. Amador is going to leave [...] site had small ooze upon arrival from crime lab technician, manual pressure held 10 min, [...] STAT delivery; norvasc administered. Report given to assistant shift supervisor RN. aware of current status, will follow [...] Procedure Name Priority Date/Time Associated Diagnosis Comments LADLE HANDLER SCAN 07/03/2015 12:00 AM EST CARDIAC CATH SCAN 07/03/2015 12: 00 AM EST CARDIAC ENZYMES ([facility]/CGP) Routine 07/02/2015 1:20 PM EST ECHO COMPLETE [...] EST ASCVD (arteriosclerotic cardiovascular disease) CARDIAC ENZYMES ([facility]) STAT 07/02/2015 7:07 AM EST APTT Routine [...] SCAN EXT O RDR/RSLT * SCAN DOC: LADLE HANDLER (07/03/2015 12:00 AM EST) Anatomical Region Laterality Modality Other Scanning Provider MEDIA MGR SCAN EXT O RDR/RSLT * Cardiac Enzymes (07/02/2015 1:20 PM EST) Troponin-T <0.03 <=0.03 ng/mL [facility] Comment: 0.03 ng/mL: Represents the 99th percentile upper reference limit for normals. >0.03 ng/mL: Elevated cardiac troponin T level indicative of myocardial damage. Diagnosis of acute, evolving or recent [place] requires a typical rise and gradual fall [...] consensus document of the Joint Society of Cardiology/[place] College of Cardiology Committee for the redefinition of myocardial infarction. ??Journal of the [place] College of Cardiology 2000; 36: 959-969] Creatine Kinase 125 0 - 160 unit/L CARISSA LOLASUHAIL Blood specimen (specimen) 07/02/2015 1:20 PM EST 07/02/2015 1:40 PM EST Narrative Resulting Agency Comment Spec In Lab Tra Moe MD CHEMISTRY ORDERABLES CARISSA HAHN * ECHO COMPLETE (07/02/2015 10:44 AM EST) EF 65 HEARTLAB SYSTEM Anatomical Region Laterality Modality Other 07/02/2015 Narrative 07/02/2015 2:40 PM EST Procedure: ?Transthoracic Echocardiogram Patient: ?TOMMY Martin ?(Age): 1935(79y) Med Rec#: ? [id number] ?Sex: ?F ? Site Loc: ? [facility] ?Ht / Wt: ??154(cm)/75(kg) Pt. Loc: ?[facility] ? BSA: ?1.73 Study Date: ?? 07/02/2015 ?Pt. Type: Inpatient Tape: ? Referring: Dean Tilley ([id number]) Reading: Jose Luis Simeon ([id number]) Garbage Worker: Africa Carpio [facility] Diagnosis: *ICD-10-PCS Atherosclerotic heart disease of [place] coronary artery without angina pectoris (I25.10) CPT Codes: *Echo Full (95210) *Spectral Doppler (32489) *Color Doppler (61295) Rhythm: ? Sinus BP: ? 156/51 SUMMARY: [...] E-wave Vmax ?1 ?m/sec ? MV deceleration [id number] ?msec ? MV A-wave Vmax ?1.3 ?m/sec [...] 07/02/2015 14:39:09 Images reviewed and interpretation verified [facility] Cardiac Ultrasound Laboratory Procedure Note Jose Luis Simeon MD - 07/02/2015 Procedure: Transthoracic Echocardiogram Patient: TOMMY Martin DOB(Age): 1935(79y) Med Rec#: [id number] Sex: F Site Loc: [facility] Ht / Wt: 154(cm)/75(kg) Pt. Loc: U BSA: 1.73 Study Date: 07/02/2015 Pt. Type: Inpatient Tape: Referring: Dean Tilley ([id number]) Reading: Jose Luis Simeon ([id number]) Garbage Worker: Africa Carpio [facility] Diagnosis: *ICD-10-PCS Atherosclerotic heart disease of [place] coronary artery without angina pectoris (I25.10) CPT Codes: *Echo Full (11790) *Spectral Doppler (39881) *Color Doppler (59470) Rhythm: Sinus BP: 156/51 SUMMARY: 1. The [...] change in the inferior vena cava dimension. [facility] Two-dimensional echo, spectral Doppler and color Doppler [...] MV E-wave Vmax 1 m/sec MV deceleration yznw172.2 msec MV A-wave Vmax 1.3 m/sec MV E:A ratio 0.8 ratio LV septal e' Vmax 0.1 m/sec LV E:e' septal ratio18.7 ratio Tricuspid Valve Value Units (Range) RAP 8 mmHg Measurement Trending Name 07/02/2015 LVIDd (2D) 4.7 LVIDs (2D) 2.67 This report has been electronically signed by: Jose Luis Simeon M.D. 07/02/2015 14:39:09 Images reviewed and interpretation verified [facility] Cardiac Ultrasound Laboratory Dean Tilley MD ECHO ORDERABLES * EKG 12 Lead (07/02/2015 7:39 AM EST) Ventricular rate 53 BPM MUSE SYSTEM Atrial Rate 53 BPM MUSE SYSTEM P-R Interval 184 ms MUSE SYSTEM QRS Duration 104 ms MUSE SYSTEM Q-T Interval 464 ms MUSE SYSTEM QTC Calculated (Bezet) 435 ms MUSE SYSTEM Calculated P [place] 39 degrees MUSE SYSTEM Calculated R [place] -48 degrees MUSE SYSTEM Calculated T [place] 108 degrees MUSE SYSTEM INTERPRETATION Sinus bradycardia [...] AM EST) Cholesterol, Total 178 <=199 mg/dL [facility] Comment: Recommendations of the NCEP Adult Treatment Panel for the following risk cutoff thresholds for the [place] population: Desirable: <200 mg/dL Borderline High: 200-239 mg/dL High: > or = 240 mg/dL Triglyceride 115 <=149 mg/dL [facility] Comment: Reference Range: Normal triglycerides: ??<150 mg/dL Borderline high: ??150-199 mg/dL High: ??200-499 mg/dL Very high: ??>pf=992 mg/dL BUTCH 2001; 285(19):3969-0759 HDL Cholesterol 45 >=40 mg/dL [facility] Comment: Reference range: ??Low HDL: ?? < 40 mg/dL ??Normal: ?40-60 mg/dL ??Desirable: > 60 mg/dL BUTCH 2001; 285(19):2330-7618 LDL Cholesterol 110(H) <=99 mg/dL [facility] NER MILL[facility]NIUM Comment: Reference range: ?? Optimal: ?<100 mg/dL ?? Near Optimal/Above Optimal: ?? 100-129 mg/dL ?? Borderline high: ?130-159 mg/dL ?? High: ? 160-189 mg/dL ?? Very high: ?>el=315 mg/dL BUTCH 2001: 285(19):3340-7246 Cholesterol/HDL Ratio 4.0 ratio [facility] Comment: A Cholesterol to HDL ratio below 4:1 is desirable. ??Studies suggest that increased CAD risk occurs at ratios above 5 for females and above 6 for men. ? [place] Heart Association ??(http://www.americanheart.org) ? Mel Int Med, 1994; 121:641 ? AM J Med, 1998; 105(1A):48S Blood specimen (specimen) Venous Draw / Unknown 07/02/2015 7:07 AM EST 07/02/2015 7:17 AM EST Narrative Resulting Agency Comment Spec In Lab Chon Lundberg II, MD CHEMISTRY ORDER ALIYA CARISSA HAHN * Prothrombin Time (07/02/2015 7:07 AM EST) Prothrombin Time 13.3 12.0 - 15.0 sec CARISSA HAHN Comment: Transfusion Committee Guidelines: INR less than 2.0, PTT less than OR equal to 43.5 seconds, or Fibrinogen greater than or equal to 100 mg/dl indicate adequate procoagulant activity for hemostasis in patients without underlying bleeding disorders. International Normalization Ratio 1.0 0.9 - 1.1 [facility] Blood specimen (specimen) Venous Draw / Unknown 07/02/2015 7:07 AM EST 07/02/2015 7:14 AM EST Narrative Resulting Agency Comment Spec In Lab Tra Moe MD HEMATOLOGY ORDERABLE S Performing Organization Address [facility] de Phone Number CARISSA HAHN * Cardiac Enzymes (07/02/2015 7:07 AM EST) Troponin-T <0.03 <=0.03 ng/mL [facility] Comment: 0.03 ng/mL: Represents the 99th percentile upper reference limit for normals. >0.03 ng/mL: Elevated cardiac troponin T level indicative of myocardial damage. Diagnosis of acute, evolving or recent [place] requires a typical rise and gradual fall [...] consensus document of the Joint Society of Cardiology/[place] College of Cardiology Committee for the redefinition of myocardial infarction. ??Journal of the [place] College of Cardiology 2000; 36: 959-969] Creatine Kinase 110 0 - 160 unit/L [facility] Blood specimen (specimen) Venous Draw / Unknown 07/02/2015 7:07 AM EST 07/02/2015 7:14 AM EST Narrative Resulting Agency Comment Spec In Lab Chon Lundberg II, MD CHEMISTRY ORDER ALIYA [facility]ER MILLENNIUM * APTT (07/02/2015 7:07 AM EST) Partial Thromboplastin Time 31 25 - 35 sec [facility]ER [facility] Comment: Recommended therapeutic PTT range for full dose unfractionated heparin is 80-114 seconds. Blood specimen (specimen) 07/02/2015 7:07 AM EST 07/02/2015 7:14 AM EST Narrative Resulting Agency Comment Spec In Lab Tra Moe MD HEMATOLOGY ORDERABLE S Performing Organization Address [facility]/ZIP Co de Phone Number CERNER MILLENNIUM * (ABNORMAL) Differential, Automated (07/02/2015 7:07 AM EST) Neutrophil % 73.7 % [facility]ER MILL[facility] Neutrophil [...] Chon Lundberg II, MD HEMATOLOGY [place] CERNER LOLAENNIUM * (ABNORMAL) Hemogram (07/02/2015 7:07 AM EST) [...] Chon Lundberg II, MD HEMATOLOGY [place] [facility]ER LOLAENNI[facility] * BMP w/fasting Glucose (07/02/2015 7:07 AM [...] of Diabetes Mellitus, Position Statement from the [place] Diabetes Association. ??Diabetes Care, Volume 33, Supplement 1, Aug 2009 Blood Urea Nitrogen 12 8 - 18 mg/dL [facility] Creatinine 0.70 0.70 - 1.20 mg/dL [facility]ER [facility] Comment: Please note that the pediatric reference intervals supplied above were not validated at [facility]. Results from pediatric patients should be interpreted [...] the following links into your internet browser. [email or web address] Blood specimen (specimen) 07/02/2015 7:07 AM EST 07/02/2015 7:14 AM EST Narrative Resulting Agency Comment Spec In Lab Chon Lundberg II, MD CHEMISTRY ORDER ALIYA Performing Organization Address City/[facility] Co de Phone Number CARISSA HAHN * EKG 12 Lead (07/01/2015 11:31 AM EST) Ventricular rate 69 BPM MUSE SYSTEM Atrial Rate 69 BPM MUSE SYSTEM P-R Interval 184 ms MUSE SYSTEM QRS Duration 110 ms MUSE SYSTEM Q-T Interval 402 ms MUSE SYSTEM QTC Calculated (Bezet) 430 ms MUSE SYSTEM Calculated P [place] 60 degrees MUSE SYSTEM Calculated R [place] -50 degrees MUSE SYSTEM Calculated T [place] 109 degrees MUSE SYSTEM INTERPRETATION Normal sinus [...] PM EST Doug Mata MD ECG ORDERABLES Performing Organization Address City/[facility] Co de Phone Number MUSE SYSTEM documented in this encounter Visit Diagnoses Diagnosis ASCVD (arteriosclerotic cardiovascular disease) Unspecified cardiovascular disease Abnormal stress test Other nonspecific abnormal cardiovascular system function study CAD (coronary artery disease) Coronary atherosclerosis of unspecified type of vessel, [place] or graft Hypertension Unspecified essential hypertension documented in this encounter Administered Medications Inactive Administered Medications - up to 3 most recent administrations Medication Order MAR Action Action Date Dose Rate Site amLODIPine (NORVASC) tablet 10 mg 10 mg, Oral, DAILY, First dose on Tue07/01/15 at 1900, Until Discontinued, STAT Given 07/01/2015 7:45 PM EST 10 mg amLODIPine (NORVASC) tablet 10 mg 10 mg, Oral, DAILY, First dose (after last modification) on Tue07/02/15 at 0900, Until Discontinued, Routine Given 07/02/2015 8:40 AM EST 10 mg aspirin EC tablet 81 mg 81 mg, Oral, DAILY, First dose on Tue07/02/15 at 0930, Until Discontinued, Routine Given 07/02/2015 10:52 AM EST 81 mg aspirin tablet 325 mg 325 mg, Oral, DAILY, First dose on Tue07/01/15 at 1000, Until Discontinued, Routine Given 07/01/2015 11:23 AM EST 325 mg diaZEPam (VALIUM) tablet 5 mg 5 mg, Oral, ONCE, 1 dose, On Tue07/01/15 at 1045, Cath (Day of Procedure), Routine Given 07/01/2015 11:24 AM EST 5 mg diphenhydrAMINE (BENADRYL) capsule 25 mg 25 mg, Oral, ONCE, 1 dose, On Tue07/01/15 at 1045, Cath (Day of Procedure), Routine Given 07/01/2015 11:26 AM EST 25 mg labetalol (NORMODYNE,TRANDATE) injection 20 mg 20 mg, Intravenous, ONCE, 1 dose, On Tue07/01/15 at 2145, STAT Given 07/01/2015 10:07 PM EST 10 mg lisinopril (PRINIVIL;ZESTRIL) tablet 5 mg 5 mg, Oral, DAILY, First dose on Tue07/02/15 at 1100, Until Discontinued, Routine Given 07/02/2015 11:54 AM EST 5 mg meTOPROLOL succinate (TOPROL-XL) XL tablet 50 mg 50 mg, Oral, DAILY, First dose (after last modification) on Tue07/02/15 at 0900, Until Discontinued, Hold if HR < 55 or SBP <90, Routine Given 07/02/2015 8:40 AM EST 50 mg niCARdipine 0.2 mg/mL (Standard Adult and Cate greater than 20 kg) infusion CONTINUOUS PRN, Starting on Tue07/01/15 at 1214, Until Tue07/02/15 at 0637, Intra-Operative (Intra-Procedure), Routine Rate/Dose Change 07/01/2015 1:44 PM EST 2.5 mg/hr 12.5 mL/hr Rate/Dose Change 07/01/2015 1:37 PM EST 5 mg/hr 25 mL/h r Rate/Dose Change 07/01/2015 12:39 PM EST 7.5 mg/hr 37.5 m L/hr Left Arm nitroGLYcerin (NITROSTAT) SL tablet 0.4 mg 0.4 mg, Sublingual, EVERY 5 MIN PRN, Chest pain, Starting on Tue07/01/15 at 1840, Until Tue07/02/15 at 1421, SL nitroglycerin may be repeated every 5 minutes as needed up to 3 doses Given 07/01/2015 6:45 PM EST 0.4 mg sodium chloride 0.9 % flush 5 mL 5 mL, Intravenous, EVERY 12 HOURS, First dose on Tue07/01/15 at 1045, Until Discontinued, Cath (Day of Procedure), Routine Given 07/01/2015 10:01 PM EST 5 mLs sodium chloride 0.9% infusion 50 mL/hr, Intravenous, CONTINUOUS, Starting on Tue07/01/15 at 1045, Until Tue07/01/15 at 1308, Cath (Day of Procedure) New Bag 07/01/2015 10:45 AM EST 50 mL/hr 50 mL/hr sodium chloride 0.9% infusion 125 mL/hr, Intravenous, CONTINUOUS, Starting on Tue07/01/15 at 1330, Until Tue07/01/15 at 2201 New Bag 07/01/2015 1:30 PM EST 125 mL/hr 125 mL/hr documented in this encounter Active and Recently [...] Discontinued, Routine 1123 (Given - Provider: Laine Redding RN) atorvastatin (LIPITOR) tablet 80 mg 80 mg, [...] at 2145, STAT 2207 (Given - Provider: Mdadie Gee RN - Comment: per Dr Tra [...] comment - Comment: unknown if given in crime lab technician)2201 (Given - Provider: Maddie Gee [...] Routine 1207 (Given - Provider: Liliam Pinedo RN) niCARdipine 0.2 mg/mL (Standard Adult and Cate greater than 20 kg) infusion (CANCELED) CONTINUOUS PRN, Starting on Tue07/01/15 at 1214, Until Tue07/02/15 at 0637, Intra-Operative (Intra-Procedure), Routine 1214 (Rate/Dose Change - Provider: Liliam Pinedo, LENKA)1239 (Rate/Dose Change - Provider: Liliam Pinedo RN)1337 [...]
--- OUTSIDE RECORDS SUMMARY | 2024-03-29 03:37 | XMS_ITS | Encounter Summary ---
Author Organization Formerly [facility] [place] [address] Care Team Providers Care Pace Analyst Name Role Phone Unavailable Primary Care Provider Unavailabl e Encounter Details Date Type Department Care Team (Late st Contact Info) Description 07/02/2015 Orders [place] [address] Tavon Chan MD [facility] [place] [address] Coronary artery disease due to lipid rich [...] Procedure Name Priority Date/Time Associated Diagnosis Comments TRANSESOPHAGEAL ECHOCARDIOGRAM (ANTONELLA) Routine 07/25/2015 ENDOSCOPIC HARVEST VEIN(S) FOR CABG Routine 07/02/2015 12:10 PM EST Coronary artery 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 @CABG,USING 2 CORONARY ARTERIAL GRAFTS Routine 07/02/2015 12:10 PM EST Coronary artery 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 @CABG,TWO VENOUS GRAFTS & ARTERIAL GRAFT Routine 07/02/2015 12:10 PM EST Coronary artery 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 documented in this encounter Results * Transesophageal Echocardiogram (ANTONELLA) (07/25/2015) Anatomical Region Laterality Modality Other 07/25/2015 Narrative 07/25/2015 7:32 AM EST Procedure: ?Transesophageal Echocardiogram Patient: ?TOMMY Martin ?(Age): 1935(79y) Med Rec#: ? [id number] ?Sex: ?F ? [place] Loc: ? [facility] [place]Ht / Wt: ??(cm)/ (kg) ? Pt. Loc: ?OR ?BSA: ? Study Date: ?? 07/24/2015 ?Pt. Type: Tape: ? Referring: Tavon Chan Reading: Lakisha Garcia ([id number]) Performing: Lani Vazquez ([id number]) Manufacturing Quality Manager: Roscoe Welsh MD Interpreting Fellow: Roscoe Welsh MD Interpreting Fellow: Lani Vazquez ([id number]) Diagnosis: *Coronary atherosclerosis of marshall coronary artery (414.01) CPT Codes: *Echo ANTONELLA Full (56765) *Spectral Doppler (19211) *Color Doppler (29302) Indication: ?? CABG Rhythm: ? Sinus SUMMARY: 1. Intraoperative ANTONELLA performed at the request of Dr. Chan for the diagnosis and evaluation of hemodynamics, overall cardiac function, and valvular pathologies as indicated. ANTONELLA probe was passed atraumatically after induction and removed in a similar fashion before emergence. 2. Pre-Bypass: Global LV systolic function appears normal with an estimated EF aproximately 60%. No evidence of regional wall motion abnormalities. The RV appears to have normal function. There is trace TR. No other evidence of valvular pathologies appreciated. There is a small PFO. 3. Post-Bypass: Global LV and RV function is improved. LVEF is ??70 %. There is no change in valvular pathologies. There is no evidence of aortic dissection post decannulation. Remainder of the exam is unchanged from prior. 4. ANTONELLA probe removed intact without evidence of blood. 5. There is a patent foramen ovale with predominant [id number] shunting. Findings ? : Study Quality: ? Adequate Left Ventricle: ? The left ventricle is probably normal in size. ?There is normal global left ventricular systolic function. ??Ejection fraction is estimated to be 70%. Left Atrium: ? The left atrium is probably normal in size. ?Spontaneous echo contrast is present. ?No thrombus is visualized within the left atrium. ?A patent foramen ovale is visualized. ?There is a patent foramen ovale with predominant [id number]-jr-[id number] shunting. ?The patent foramen ovale is demonstrated by color Doppler. Right Ventricle: ? The right ventricle is probably normal in size. ?A catheter is visualized in the right ventricle. ?Right ventricular global systolic function is probably normal. Right Atrium: ? A catheter is visualized in the right atrium. Aortic Valve: ? The aortic valve is tricuspid. ?There is no evidence of aortic valve stenosis. ?There is no evidence of aortic regurgitation. Mitral Valve: ? The mitral valve leaflets appear normal. ?There is no evidence of mitral stenosis. ?There is no evidence of mitral regurgitation. Tricuspid Valve: ? The tricuspid valve is probably normal. ?There is trace tricuspid regurgitation present. Pulmonic Valve: ? The pulmonic valve is probably normal. Aorta: ? There is evidence of grade 3 (atheroma <= 5mm) atheromatous disease of the ascending aorta. ?There is evidence of grade 3 (atheroma <= 5mm) atheromatous disease of the aortic arch. ?There is evidence of grade 2 (extensive intimal thickening) atheromatous disease of the descending thoracic aorta. Venous: ? The flow pattern of the pulmonary veins appear normal. Diastolic/Systolic Function ?Value ?Units (Range) ? MV E-wave Vmax ?1.1 ?m/sec ? MV deceleration [id number] ?msec ? MV A-wave Vmax ?1.2 ?m/sec ? MV E:A ratio ?0.9 ?ratio ? P. vein S-wave Vmax 0.6 ?m/sec ? P. vein D-wave Vmax 0.4 ?m/sec ? P. vein S:D Vmax rat1.6 ?ratio ? LV lateral e' Vmax ??0.1 ?m/sec ? LV E:e' lateral rati19.5 ? ratio ? Aortic Valve ?Value ?Units (Range) ? AV Vmax ? 1.9 ?m/sec ? AV VTI ?32.8 ? cm ? AV peak gradient ?15 ? mmHg ? AV mean gradient ?8 ?mmHg ? LVOT diameter ? 1.7 ?cm ? LVOT Vmax ? 1.2 ?m/sec ? LVOT VTI ?20.2 ? cm ? LVOT peak gradient ??6 ?mmHg ? LVOT mean gradient ??2 ?mmHg ? SV LVOT ? 46 ? ml ? CO LVOT ? 3.3 ?l/min ? MARV (continuity Vmax1.4 ?cm2 ? Tricuspid Valve ?Value ?Units (Range) ? TR Vmax ? 2.3 ?m/sec ? TR peak gradient ?22 ? mmHg ? Measurement Trending Name ? 07/24/2015 ? MARV (continuity Vmax) ?1.39 Wall Motion: Segment Name ?Rest ? Base-Anteroseptal ?? Normal ? Base-Anterior ? Normal ? Base-Anterolateral ??Normal ? Base-Posterolateral Normal ? Base-Inferior ? Normal ? Base-Inferoseptal ?? Normal ? Mid-Anteroseptal ?Normal ? Mid-Anterior ?Normal ? Mid-Anterolateral ?? Normal ? Mid-Posterolateral ??Normal ? Mid-Inferior ?Normal ? Mid-Inferoseptal ?Normal ? [place]-Septal ? Normal ? [place]-Anterior ? Normal ? [place]-Lateral ?Normal ? [place]-Inferior ? Normal ? [place]-Tip ?Normal ? This report has been electronically signed by: Lakisha Garcia MD ? 07/25/2015 07:31:59 Images reviewed and interpretation verified [facility] Card[facility] Ultrasound [facility] Procedure Note Lakisha Garcia MD - 07/25/2015 Procedure: Transesophageal Echocardiogram Patient: TOMMY Martin DOB(Age): 1935(79y) Med Rec#: [id number] Sex: F Site Loc: [facility] [place] Ht / Wt: (cm)/ (kg) Pt. Loc: OR BSA: Study Date: 07/24/2015 Pt. Type: Tape: Referring: Tavon Chan Reading: Lakisha Garcia ([id number]) Performing: Lani Vazquez ([id number]) Manufacturing Quality Manager: Roscoe Welsh MD Interpreting Fellow: Roscoe Welsh MD Interpreting Fellow: Lani Vazquez ([id number]) Diagnosis: *Coronary atherosclerosis of marshall coronary artery (414.01) CPT Codes: *Echo ANTONELLA Full (70174) *Spectral Doppler (26668) *Color Doppler (50726) Indication: CABG Rhythm: Sinus SUMMARY: 1. Intraoperative ANTONELLA performed at the request of Dr. Chan for the diagnosis and evaluation of hemodynamics, overall cardiac function, and valvular pathologies as indicated. ANTONELLA probe was passed atraumatically after induction and removed in a similar fashion before emergence. 2. Pre-Bypass: Global LV systolic function appears normal with an estimated EF aproximately 60%. No evidence of regional wall motion abnormalities. The RV appears to have normal function. There is trace TR. No other evidence of valvular pathologies appreciated. There is a small PFO. 3. Post-Bypass: Global LV and RV function is improved. LVEF is 70 %. There is no change in valvular pathologies. There is no evidence of aortic dissection post decannulation. Remainder of the exam is unchanged from prior. 4. ANTONELLA probe removed intact without evidence of blood. 5. There is a patent foramen ovale with predominant [id number]-[id number] shunting. Findings : Study Quality: Adequate Left Ventricle: The left ventricle is probably normal in size. There is normal global left ventricular systolic function. Ejection fraction is estimated to be 70%. Left Atrium: The left atrium is probably normal in size. Spontaneous echo contrast is present. No thrombus is visualized within the left atrium. A patent foramen ovale is visualized. There is a patent foramen ovale with predominant [id number]-ar-[id number] shunting. The patent foramen ovale is demonstrated by color Doppler. Right Ventricle: The right ventricle is probably normal in size. A catheter is visualized in the right ventricle. Right ventricular global systolic function is probably normal. Right Atrium: A catheter is visualized in the right atrium. Aortic Valve: The aortic valve is tricuspid. There is no evidence of aortic valve stenosis. There is no evidence of aortic regurgitation. Mitral Valve: The mitral valve leaflets appear normal. There is no evidence of mitral stenosis. There is no evidence of mitral regurgitation. Tricuspid Valve: The tricuspid valve is probably normal. There is trace tricuspid regurgitation present. Pulmonic Valve: The pulmonic valve is probably normal. Aorta: There is evidence of grade 3 (atheroma <= 5mm) atheromatous disease of the ascending aorta. There is evidence of grade 3 (atheroma <= 5mm) atheromatous disease of the aortic arch. There is evidence of grade 2 (extensive intimal thickening) atheromatous disease of the descending thoracic aorta. Venous: The flow pattern of the pulmonary veins appear normal. Diastolic/Systolic Function Value Units (Range) MV E-wave Vmax 1.1 m/sec MV deceleration [id number] msec MV A-wave Vmax 1.2 m/sec MV E:A ratio 0.9 ratio P. vein S-wave Vmax 0.6 m/sec P. vein D-wave Vmax 0.4 m/sec P. vein S:D Vmax rat1.6 ratio LV lateral e' Vmax 0.1 m/sec LV E:e' lateral rati19.5 ratio Aortic Valve Value Units (Range) AV Vmax 1.9 m/sec AV VTI 32.8 cm AV peak gradient 15 mmHg AV mean gradient 8 mmHg LVOT diameter 1.7 cm LVOT Vmax 1.2 m/sec LVOT VTI 20.2 cm LVOT peak gradient 6 mmHg LVOT mean gradient 2 mmHg SV LVOT 46 ml CO LVOT 3.3 l/min MARV (continuity Vmax1.4 cm2 Tricuspid Valve Value Units (Range) TR Vmax 2.3 m/sec TR peak gradient 22 mmHg Measurement Trending Name 07/24/2015 MARV (continuity Vmax) 1.39 Wall Motion: Segment Name Rest Base-Anteroseptal Normal Base-Anterior Normal Base-Anterolateral Normal Base-Posterolateral Normal Base-Inferior Normal Base-Inferoseptal Normal Mid-Anteroseptal Normal Mid-Anterior Normal Mid-Anterolateral Normal Mid-Posterolateral Normal Mid-Inferior Normal Mid-Inferoseptal Normal [place]-Septal Normal [place]-Anterior Normal [place]-Lateral Normal [place]-Inferior Normal [place]-Tip Normal This report has been electronically signed by: Lakisha Garcia MD 07/25/2015 07:31:59 Images reviewed and interpretation verified [facility] Card[facility] Ultrasound [facility] Unknown ECHO ORDERABLES * XR Chest Routine PA & Lateral [...]
--- OUTSIDE RECORDS SUMMARY | 2024-03-29 03:37 | XMS_ITS | Encounter Summary ---
Author Organization Formerly [facility] [place] [address] Care Team Providers Care Correspondence Review Clerk Name Role Phone Unavailable Primary Care Provider Unavailabl e Reason for Visit * Auth/Cert - Closed Specialty Diagnoses / Procedures Referred By Contac t Referred To Contact Diagnoses cad Procedures @CABG, USING 2 CORONARY ARTERIAL GRAFTS ENDOSCOPIC HARVEST VEIN(S) FOR CABG @CABG, TWO VENOUS GRAFTS & ARTERIAL GRAFT Referral ID Status Reason Start Date Expiration Date Visits Re quested Visits Authorized [id number] Closed 1 1 Encounter Details Date Type Department Care Team (Late st Contact Info) Description 07/24/2015 10:43 AM EST Anesthesia Event [place] [id number] Lakisha Garcia MD [facility] [place] [address] Anesthesia Record Procedure Summary Procedure Name Responsible Anesthesiologist Anesthesia Start Time Anesthesia Stop Time @CABG, USING 2 CORONARY ARTERIAL GRAFTS (WRVU 39.88) (Chest) Lakisha Garcia MD 07/24/15 1043 07/24/15 1609 Events Date Time Event Comment 07/24/2015 1005 1042 AN Verify 1043 Start 1043 An Start Data 1056 An Induction 1103 An Intubation 1105 ANTONELLA PROBE ONLY 1119 Anesthesia Ready 1137 Sternotomy 1206 Heparin 1216 Heparin 1236 CV Bypass init 1240 An Clamp start 1412 Rewarming 1433 An Clamp Remove 1433 CP Bypass Ended 1439 Protamine 1545 Chest Closed 1603 an stop data 1603 Transport 1609 Stop Meds Name Total Midazolam 5 mg fentaNYL 1,000 mcg Propofol 100 mg PHENYLephrine 120 mcg Heparin 25,000 Units Protamine 250 mg Tranexamic Acid 740 mg Tranexamic Acid INF 312.88 mg Insulin Regular Human 10 Units ceFURoxime 3 g Rocuronium 200 mg NORepinephrine INF 996 mcg niCARdipine 0.25 mg Sodium Chloride 0.9% 300 mL lactated ringers infusion 1,000 mL 300 m L * Agents Name O2 Air Sevoflurane (et) Isoflurane (et) * Blood No blood administrations on file. Lines, Drains, and Airways Type Details Placement Removal Urethral Catheter 07/24/15; Surgery lo nger than 2 hours, Need for intraoperative urine output monitoring; Physician order; indwelling catheter with core temperature probe; 100% silicone; 16; inserted at this facility (by LENKA Martin.); 1; 5; 10; none (Tolerated with no signs or symptoms of discomfort.); drainage bag to dependent drainage; urethral catheter removed; 07/26/15; 1054 07/24/15 0000 by Lula Martin RN 07/26/15 1054 by Shwetha Ferguson RN Incision 07/24/15; sternal; vertical; 04/12/22 (LDA cleanup utility RA#[id number]); 1715 (LDA cleanup utility RA#[id number]) 07/24/15 0000 by Lula Martin RN 04/12/22 1715 by Amanda Yang Incision 07/24/15; knee; horizontal; Site of endoscopic vein harvest.; 04/12/22 (LDA cleanup utility RA#[id number]); 1715 (LDA cleanup utility RA#[id number]) 07/24/15 0000 by Lula Martin RN 04/12/22 1715 by Amanda Yang Incision 07/24/15; groin; laparoscopic puncture; Site of endoscopic vein harvest.; 04/12/22 (LDA cleanup utility RA#[id number]); 1715 (LDA cleanup utility RA#[id number]) 07/24/15 0000 by Lula Martin RN 04/12/22 1715 by Amanda Yang Drain/Device Site 07/24/15; Right; med ial; knee; collapsible closed device; 7mm WILLIAM drain connected with bulb. ; 07/25/15; 0205 07/24/15 0000 by Lula Martin RN 07/25/15 0205 by Clau Sun RN Chest Tube 07/24/15; Right; anterior; mediastinal; 28Fr. Straight. ; 07/25/15; 1215 07/24/15 0000 by Lula Martin RN 07/25/15 1215 by Bull Calixto RN Chest Tube 07/24/15; Left; posterior; mediastinal; 28Fr. Angled.; 07/25/15; 1214 07/24/15 0000 by Lula Martin RN 07/25/15 1214 by Bull Calixto, RN (RETIRED) Peripheral IV Line - Single Lumen 07/24/15; 0920; basilic vein left (medial side of arm); 18 gauge; Romaine Grover; intradermal injection; 11/28/17 (Auto removal via utility); 0921 (Auto removal via utility) 07/24/15 0920 by Eileen Barragan RN 11/28/17 0921 by [place], User Arterial Line 07/24/15; 1051; radi al artery; 20 gauge; MD Jose; Sterile Prep, Sterile Gloves; 07/25/15; 1000 07/24/15 1051 by Gemma Bedolla MD 07/25/15 1000 by Marguerite Kaur RN ETT Mask Ventilation: Adjunct (2); ETT Type: Cuffed, Oral; ETT Size: 7.5 mm; Mac Blade: 3; Notes: Asleep, Pre-O2, Stylette; Attempts: 1; Laryngoscopy Grade: 2; ETT Placement Verified By: Auscultation, Capnometry, Visual; Secured at Teeth: 21 cm; Inserted by: MD Chioma; Removal Date: 07/24/15; Removal Time: 215407/24/151102 by Gemma Bedolla MD 07/24/152154 by Bandar Godwin RCP (RETIRED) Percutaneous Central Line - Single Lumen 07/24/15; 1109; internal jugular vein, right; Anatomical Landmarks, Ultrasound Guidance; Yes; 9 Fr; MD Chioma; ANTONELLA; CVC Protocol Performed; 07/25/15; 1324 07/24/15 1109 by Gemma Bedolla MD 07/25/15 1324 by Marguerite Kaur RN (RETIRED) Pulmonary Artery Catheter - Triple Lumen 07/24/15; 1500; Right; internal jugular vein; hemodynamic monitoring; 07/24/15; 2315 07/24/15 1500 by Aurelio Mclaughlin RN 07/24/15 2315 by Clau Sun RN documented in this encounter Social History Tobacco Use Types Packs/Day Years Used Date Smoking Tobacco: Never Alcohol Use Standard Drinks/Week Comments Yes 1 (1 standard drink = 0.6 oz pur e alcohol) Sex and Gender Information Value Date Recorded Sex Assigned at Not on file Gender Identity Not on file Sexual Orientation Not on file documented as of this encounter OR Notes * Anesthesia Postprocedure Evaluation - Gemma Bedolla MD - 07/25/2015 4:18 PM EST [facility] [place] Department of Anesthesiology Post-procedure Note Patient: Ginger Amador Procedure Summary Date Anesthesia Start Anesthesia Stop Room / Location 07/24/15 1043 1609 MH OR 16 / [facility] MAIN OR Procedure Diagnosis Surgeon Responsible Provider @CABG, USING 2 CORONARY ARTERIAL GRAFTS (N/A Chest); ENDOSCOPIC HARVEST VEIN(S) FOR CABG (N/A Leg);@CABG, TWO VENOUS GRAFTS & ARTERIAL GRAFT (N/A Chest) Coronary artery disease due to lipid richplaque Tavon Alves MD Hathaway, Jessica A, MD (cad) Last (1hr) Vitals: BP 145/43 mmHg (07/25/15 153) Temp 36.5 ??C (97.7 ??F) (07/25/15 153) Pulse 65 (07/25/15 153) Resp 18 (07/25/151536) SpO2 95 % (07/25/151536) Patient Location: Floor Level of Consciousness: Awake and Alert Pain Management: Satisfactory Analgesia PONV: None Cardiovascular Status: At Baseline Respiratory Status: At Baseline Postoperative Fluid Status: Intravascular EUvolemia Possible Anesthetic Complications: NONE apparent at time of evaluation Final Primary Anesthesia Type: General (The anesthetic type performed was the same as planned.) Comments: * Anesthesia Preprocedure Evaluation - Gemma Bedolla MD - 07/23/2015 2:50 PM EST Pre-Anesthesia Evaluation for: Ginger Amador a 79 y.o. female. Procedure(s): @CABG, USING 2 CORONARY ARTERIAL GRAFTS ENDOSCOPIC HARVEST VEIN(S) FOR CABG @CABG, TWO VENOUS GRAFTS & ARTERIAL GRAFT Patient Active Problem List Diagnosis ??? CAD (coronary artery disease) ??? Hypertension ??? Abnormal stress test ??? Actinic keratosis ??? Verruca vulgaris ??? Seborrheic keratosis No past medical history on file. No past surgical history on file. History Substance Use Topics ??? Smoking status: Never Smoker ??? Smokeless tobacco: Not on file ??? Alcohol Use: 0.6 oz/week 1 Shots of liquor per week History Drug Use No Allergies Allergen Reactions ??? Bacitracin ??? Gramicidin D ??? Lidocaine ??? Neomycin Sulfate ??? Neosporin [Hydrocortisone] ??? Polymyxin B ??? Polymyxin B Sulfate ??? Sulfa (Sulfonamide Antibiotics) ??? Wheat Nausea And Vomiting Extreme fatigue and sleepiness Medications: MAR and/or home medications have been reviewed. Physical Exam: There were no vitals filed for this visit. There is no weight on file to calculate BMI. Anesthesia Physical Exam Anesthesia Plan: ASA 3 General, with a(n) intravenous induction 79yo woman 74kg (IBW 47kg) c history of CAD and three-vessel disease to OR c Dr. Alves for coronary artery bypass graft x 2. Chart reviewed. Patient to be seen on day of procedure. THIS IS A PRELIMINARY NOTE BASED ON CHART REVIEW PMHx: CAD, HTN Denies: SOB, CP Good exercise tolerance PMH negative for DM, RAD, liver/kidney disease, excessive bleeding No URI symptoms. No uncontrolled GERD NPO No previous anesthetic complications. Plan Awake arterial line GA c ETT Central access Adequate IV access Standard ASA monitors GEMMA BEDOLLA MD 4931 CA-1 Region - Intrathoracic Cardiac Informed Consent: PAT Staff Note documented in this encounter Plan of Treatment Not on file documented as of this encounter Visit Diagnoses Not on filedocumented in this encounter Administered Medications Inactive Administered Medications - up to 3 most recent administrations Medication Order MAR Action Action Date Dose Rate Site cefUROXime (ZINACEF) injection 1.5 g Administer over 60 Minutes, PRN, Starting on Flavia 07/24/15 at 1107, Until Tue07/25/15 at 1501, Anesthesia Intra-op, Routine Given 07/24/2015 2:40 PM EST 1.5 g Given 07/24/2015 11:07 AM EST 1.5 g fentaNYL 50 mcg/mL multi-dose injection PRN, Starting on Flavia 07/24/15 at 1056, Until Tue07/25/15 at 1501, Pain, Anesthesia Intra-op, Routine Given 07/24/2015 11:35 AM EST 250 mcg Given 07/24/2015 11:19 AM EST 250 mcg Given 07/24/2015 11:05 AM EST 400 mcg heparin (porcine) injection PRN, Starting on Flavia 07/24/15 at 1206, Until Tue07/25/15 at 1501, Anesthesia Intra-op, Routine Given 07/24/2015 12:16 PM EST 20,000 Units Given 07/24/2015 12:06 PM EST 5,000 Units insulin regular human VIAL injection PRN, Starting on Flavia 07/24/15 at 1349, Until Tue07/25/15 at 1501, Anesthesia Intra-op, Routine Given 07/24/2015 1:49 PM EST 10 Units lactated ringers infusion 1,000 mL 1,000 mL, at 100 mL/hr, Intravenous, CONTINUOUS, Starting on Flavia 07/24/15 at 0930, Until Flavia 07/24/15 at 1602, Day of Surgery (Day of Procedure) New Bag 07/24/2015 10:43 AM EST New Bag 07/24/2015 9:30 AM EST 1,000 mLs 100 mL/hr midazolam (PF) (VERSED) 1 mg/mL multi-dose injection PRN, Starting on Flavia 07/24/15 at 1046, Until Tue07/25/15 at 1501, Sleep, Anesthesia Intra-op, Routine Given 07/24/2015 3:07 PM EST 1 mg Given 07/24/2015 1:00 PM EST 2 mg Given 07/24/2015 12:43 PM EST 1 mg niCARdipine (CARDENE) injection PRN, Starting on Flavia 07/24/15 at 1459, Until Tue07/25/15 at 1501, Anesthesia Intra-op, Routine Given 07/24/2015 2:59 PM EST 0.25 mg NORepinephrine 16 mcg/mL (standard ADULT and Cate greater than 20 kg) infusion CONTINUOUS PRN, Starting on Flavia 07/24/15 at 1434, Until Tue07/25/15 at 1501, Anesthesia Intra-op, Routine Rate/Dose Change 07/24/2015 3:45 PM EST 4 mcg/min 15 mL/hr New Bag 07/24/2015 2:34 PM EST 12 mcg/min 45 mL/hr New Bag 07/24/2015 2:31 PM EST 10 mcg/min 37.5 mL/hr PHENYLephrine HCl in NS (PF) (JOSE-SYNEPHRINE) 0.8 mg/10 mL (80 mcg/mL) multi-dose injection Syrg PRN, Starting on Flavia 07/24/15 at 1215, Until Tue07/25/15 at 1501, Anesthesia Intra-op, Routine Given 07/24/2015 12:31 PM EST 80 mcg Given 07/24/2015 12:15 PM EST 40 mcg propofol (DIPRIVAN) 10 mg/mL bolus injection (Anesthesia) PRN, Starting on Flavia 07/24/15 at 1202, Until Tue07/25/15 at 1501, Anesthesia Intra-op Given 07/24/2015 12:02 PM EST 1 00 mg protamine injection PRN, Starting on Flavia 07/24/15 at 1439, Until Tue07/25/15 at 1501, Anesthesia Intra-op, Routine Given 07/24/2015 2:39 PM EST 250 mg rocuronium (ZEMURON) multi-dose injection PRN, Starting on Flavia 07/24/15 at 1241, Until Tue07/25/15 at 1501, Anesthesia Intra-op, Routine Given 07/24/2015 3:05 PM EST 30 mg Given 07/24/2015 12:41 PM EST 100 mg Given 07/24/2015 11:00 AM EST 70 mg sodium chloride 0.9% infusion CONTINUOUS PRN, Starting on Flavia 07/24/15 at 1043, Until Tue07/25/15 at 1501, Anesthesia Intra-op New Bag 07/24/2015 10:43 AM EST tranexamic acid (CYKLOKAPRON) 100 mg/mL bolus injection (Anesthesia) PRN, Starting on Flavia 07/24/15 at 1126, Until Tue07/25/15 at 1501, Anesthesia Intra-op, Routine Given 07/24/2015 11:26 AM EST 740 mg tranexamic acid (CYKLOKAPRON) injection CONTINUOUS PRN, Starting on Flavia 07/24/15 at 1156, Until Tue07/25/15 at 1501, Anesthesia Intra-op, Routine New Bag 07/24/2015 11:56 AM EST 1 mg/kg/hr 0.7 mL/hr documented in this encounter
--- OUTSIDE RECORDS SUMMARY | 2024-03-29 03:37 | XMS_ITS | Encounter Summary ---
Author Organization [place] [address] Care Team Providers Care Rolling Chair Pusher Name Role Phone Unavailable Primary Care Provider Unavailabl e Reason for Visit * Reason Comments Follow-up Encounter Details Date Type Department Care Team (Late st Contact Info) Description 11/17/2012 11:30 AM EDT Office Visit Dermatology [address] [place] [address] Aj Albright MD [address], [place] [address] Verruca vulgaris (Primary Dx) Social History Tobacco Use Types Packs/Day Years Used Date Smoking Tobacco: Former Sex and Gender Information Value Date Recorded Sex Assigned at Not on file Gender Identity Not on file Sexual Orientation Not on file documented as of this encounter Progress Notes * Aj Albright MD - 11/17/2012 11:45 AM EDT Problem: Followup verruca vulgaris, visit number three. Ginger follows up, and again the 3 x 5-mm verrucous papule is still present on the right index finger laterally. It is flattened, but it is still present. The hyperkeratotic base remains. It took about three weeks, she states, for it to desquamate and peel off, but it has not resolved. Physical examination confirms. Assessment and Plan: Verruca vulgaris, third visit, right index finger laterally. a. Today LN2 times three applied aggressively to the site. b. Discussed the option of bleomycin versus curettage today, but the patient has a conference to go to in a week, and thus will need to have full use of that finger and hand without an open, healing sore. c. Return to the clinic in about a month for repeat check if the wart is still there. At that time we will consider probable curettage versus possible bleomycin injection. Copy: Jacob Foley D.O. documented in this encounter Plan of Treatment Not on file documented as of this encounter Visit Diagnoses Diagnosis Verruca vulgaris- Primary Viral warts, unspecified documented in this encounter
--- OUTSIDE RECORDS SUMMARY | 2024-03-29 03:37 | XMS_ITS | Encounter Summary ---
Author Organization [facility] Address [address] [place] [address] Care Team Providers Care Roll On Man Name Role Phone Jacob Foley Primary Care Provider [phone] Encounter Details Date Type Department Care Team (Late st Contact Info) Description 02/29/2020 Lab Requisition [facility] Pathology & Laboratory Medicine - [facility] [address] [place] [address] Ricky Rojas MD [address] [place] [address] DR VAR[place], [place] [id number] Encounter for other general examination Social History [...] Date/Time Associated Diagnosis Comments SURGICAL PATHOLOGY Today 02/29/2020 11 :00 EDT Encounter for other general examination documented in this encounter Results * SURGICAL PATHOLOGY (02/29/2020 11:00 EDT) Final Diagnosis A. SKIN OF ARM, RIGHT, RE-EXCISION: - Epidermal reparative change and dermal scar. - No residual squamous cell carcinoma identified. B. SKIN OF AXILLA, LEFT, EXCISION: - Seborrheic keratosis. 03/04/2020 11:27 EDT [facility] at 1127 Attestation By the signature below, the attending physician certifies that they have 1) personally conducted a gross and/or microscopic examination of the described specimen(s), and/or personally interpreted the results of laboratory testing of the described specimen(s), and 2) personally rendered or confirmed the above diagnosis. 03/04/2020 11:27 [facility] at 1127 Clinical History A. Squamous cell CA, positive margins; B. Left axillary lesion, ? skin tag 03/04/2020 11:27 [facility] Gross Description A. Received in formalin labelled with proper patient identification (initials W, G) and right arm re-excision lesion for positive margins is an oriented elliptical skin excision (1.7 x 0.6 cm and is excised to the depth of 0.3 cm). The specimen is oriented with a stitch at superior (12 o'clock). The epidermal surface is pearly white and scaly with no definitive lesion. The 3 o'clock half is inked blue and the 9 o'clock half is inked black. The specimen is serially sectioned from 12 to 6 o'clock and submitted as follows: [place] A1- 12 o'clock tip, reverse en face A2-A3- central sections A4- 6 o'clock tip, reverse en face B. Received in formalin labelled with proper patient identification (initials W, G) and left axilla arm skin lesion is an oriented elliptical skin excision (1.6 x 0.6 cm and is excised to the depth of 0.2 cm). The specimen is oriented with a stitch medial (9 o'clock). Comprising approximately 90% of the epidermal surface is a white verrucoid lesion (1.5 x 1.1 x 0.5 cm). The 12 o'clock half is inked blue and the 9 o'clock half is inked black. The specimen is serially sectioned from 3 o'clock to 9 o'clock and submitted entirely as follows: [place] B1- 3 o'clock tip, reverse en face B2-B3- central sections B4- 9 o'clock tip, reverse en face 03/03/2020 10:18 03/04/2020 11:27 [facility] Scanned Images 03/04/2020 11:27 [facility] Tissue TISSUE SPECIMEN FROM SKIN / Unknown 02/29/2020 11:00 EDT 02/29/2020 18:53 EDT Tissue specimen (specimen) SPECIMEN FROM SKIN / Unknown 02/29/2020 11:00 EDT 02/29/2020 18:53 EDT Ricky Rojas MD PATHOLOGY ORDERA BAKARIS [facility] [address] [place] [address] documented in this encounter Visit Diagnoses Diagnosis Encounter for other general examination documented in this encounter Care Teams Roll On Man Relationship Specialty Start Date End Date Jacob Foley DO [address] [place] [address] [place] [address] PCP - General 01/14/20 documented as of this encounter
--- OUTSIDE RECORDS SUMMARY | 2024-03-29 03:37 | XMS_ITS | Encounter Summary ---
[place] [address] Care Team Providers Care Primer Supervisor Name Role Phone Unavailable Primary Care Provider Unavailabl e Reason for Visit * Auth/Cert - Closed Specialty Diagnoses / Procedures Referred By Contfrederic t Referred To Contact Diagnoses ASCVD Procedures CARDIAC CATHETERIZATION Referral ID Status Reason Start Date Expiration Date Visits Re quested Visits Authorized [id number] Closed 1 1 Encounter Details Date Type Department Care Team (Latest Contact Info) Description 07/02/2015 2:40 PM EST Laboratory [place] [address] Coronary artery disease due to lipid rich [...] Procedure Name Priority Date/Time Associated Diagnosis Comments TYPE AND SCREEN, SDP (FUTURE SURGERY, [facility] SAME DAY PROGRAM ONLY) Routine 07/02/2015 2:49 PM EST Coronary artery 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 ABO/RH TYPING Routine 07/02/2015 2:49 PM EST Coronary artery 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 ANTIBODY SCREEN Routine 07/02/2015 2:49 PM EST Coronary artery 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 documented in this encounter Results * Antibody screen (07/02/2015 2:49 PM EST) Ab Screen Interp Negative CARISSA DAVILAENNIUM Expires at [id number] on: 07/27/2015 CERNER LOLAENNIUM Blood specimen (specimen) 07/02/2015 2:49 PM EST 07/02/2015 2:52 PM EST Narrative Resulting Agency Comment Spec In Lab Tavon Chan MD [facility] CARISSA SHAHIUM * ABO/Rh Typing (07/02/2015 2:49 PM EST) ABORH Type O Pos CARISSA DAVILAENNIUM Blood specimen (specimen) 07/02/2015 2:49 PM EST 07/02/2015 2:52 PM EST Narrative Resulting Agency Comment Spec In Lab Tavon Chan MD [facility] CRAISSA HAHN documented in this encounter Visit Diagnoses Diagnosis Coronary artery 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 documented in this encounter
--- NOTE | 2024-03-29 07:15 | DI.DEXA_ITS ---
Exam(s) XR DEXA BONE DENSITY W/WO JANNETTE EXAM: XR DEXA BONE DENSITY W/WO JANNETTE CLINICAL HISTORY: screening for osteoporosis IN POSTMENOPAUSAL WOMAN,Z78.0 TECHNIQUE: COMPARISON: No exams were available for comparison FINDINGS: Lateral Spine Image: Unremarkable. No compression deformities identified. Left hip: Total T-Score: -1.3 Total Z-Score: 1.1 T- and Z-scores: Findings are consistent with osteopenia. No evidence of osteoporosis. Lumbar Spine: Total T-Score: -1.1 Total Z-Score: 1.6 T- and Z-scores: Findings are consistent with osteopenia. No evidence of osteoporosis. IMPRESSION: No evidence of osteoporosis.
== END 2024-03-29 03:50 ==
LOC: DI 03:30
PROVIDERS: PCP Nurse Practitioner Family; Visit Provider Nurse Practitioner Family
DX: Z78.0 Asymptomatic menopausal state (principal); R73.03 Prediabetes; Z13.820 Encounter for screening for osteoporosis
CPT/HCPCS: 77080

== ENCOUNTER 2024-04-03 17:27 | Outpatient (REF) | payer MEDICARE, SELFPAY ==
--- NOTE | 2024-04-03 15:45 | SKI_PTH ---
PATIENT: Ginger Amador LOC: [facility] U#:[id number] AGE/SX: 88/F ROOM: RE04/03/[address]: Sukh Arana DNP : 1935 BED: DIS: 04/03/2024 SPEC #: [id number] RECD: 04/04/24 12:54 STATUS: MARIE REQ #: [id number] KEVIN: 04/03/24 15:[address]: Sukh Buitrago DEPT: Surgical Specimen RECD BY: Debora Mayer Tissues: 1 - SKIN BIOPSY(SHAVE/PUNCH) Procedures: SKIN LEVEL 4 Comments: [id number]
== END 2024-04-03 17:28 | disposition home or self-care (01) ==
LOC: LBN 17:27
PROVIDERS: PCP Nurse Practitioner Family; Visit Provider Nurse Practitioner Family
DX: L98.9 Disorder of the skin and subcutaneous tissue, unspecified (principal)
CPT/HCPCS: 88305

== ENCOUNTER 2024-05-15 14:50 | Outpatient (CLI) | payer MEDICARE, SELFPAY ==
[2024-05-15 14:08] LABS: Calculated LDL 101 mg/dL (<100); Cholesterol 185 mg/dL (<200); HDL Cholesterol 54 mg/dL (40-60); Triglyceride 150 mg/dL (<150)
== END 2024-05-15 14:51 | disposition home or self-care (01) ==
LOC: LBO 14:51
PROVIDERS: PCP Nurse Practitioner Family; Visit Provider Internal Medicine Cardiovascular Disease
DX: E78.5 Hyperlipidemia, unspecified (principal); Z23 Encounter for immunization
CPT/HCPCS: 36415; 80061

== ENCOUNTER 2024-05-15 14:53 | Outpatient (REF) | payer MEDICARE, SELFPAY ==
--- NOTE | 2024-05-16 11:00 | SKI_PTH ---
PATIENT: Ginger Amador LOC: [facility] U#:[id number] AGE/SX: 88/F ROOM: RE05/15/[address]: Sukh Arana DNP : 1935 BED: DIS: 05/15/2024 SPEC #: [id number] RECD: 05/16/24 12:42 STATUS: MARIE RELito #: [id number] KEVIN: 05/16/24 11:[address]: Sukh Buitrago DEPT: Surgical Specimen RECD BY: Debora Mayer Tissues: 1 - SKIN BIOPSY(SHAVE/PUNCH) Procedures: SKIN LEVEL 4 Comments: [id number]
== END 2024-05-15 14:54 | disposition home or self-care (01) ==
LOC: LBN 14:53
PROVIDERS: PCP Nurse Practitioner Family; Visit Provider Nurse Practitioner Family
DX: E78.5 Hyperlipidemia, unspecified (principal)
CPT/HCPCS: 88305

== ENCOUNTER 2024-05-27 09:33 | Emergency (ER) | payer MEDICARE, SELFPAY ==
[2024-05-27 09:41] VITALS: BP 229/74; PULSE 55; RESP 18; O2SAT 96
--- NOTE | 2024-05-27 09:53 | W.ED.GENAD ---
Discharge Plan Disposition Patient Disposition: Home Condition: Stable Discharge Details Clinical Impression: Dehiscence of wound Primary Care Provider: Sukh Buitrago ED Provider: Michael Murphy Home Meds and New Rx's Prescriptions: Continued ezetimibe 10 mg tablet 10 mg PO DAILY lisinopril 5 mg tablet 5 mg PO DAILY MDD 10 mg Qty: 135 3RF Rx Instructions: 1-2 tabs daily as directed triamcinolone acetonide 0.025 % ointment 1 applic Topical BID Qty: 80 1RF aspirin 81 mg tablet,delayed release (DR/EC) 81 mg PO DAILY amlodipine 5 mg tablet 5 mg PO DAILY Qty: 90 4RF Rx Instructions: per [facility] [place]uka Honey 100 % gel 1 applic topical TID PRN (Reason: wound care) Qty: 15 0RF garlic 1 EACH tablet 1 - 6 ea PO DAILY albuterol sulfate [ProAir HFA] 90 mcg/actuation HFA aerosol inhaler 2 puff Inhalation Q4H PRN Qty: 2 6RF fluticasone propion-salmeterol [Advair Diskus] 250-50 mcg/dose blister with device See Rx Instructions .ROUTE .COMPLEX Qty: 60 11RF Dose Instruction: INHALE ONE PUFF BY MOUTH TWICE A DAY Rx Instructions: INHALE ONE PUFF BY MOUTH TWICE A DAY epinephrine 0.3 mg/0.3 mL auto-injector 0.3 mg IM ONCE PRN (Reason: anaphylaxis) Qty: 2 0RF Rx Instructions: as a single dose; may repeat once Discharge Instructions Additional Instructions: The wound will have to heal by itself at this point. Keep the wound covered until it is healed. Follow-up with your primary care provider within 1 to 2 weeks If you feel more ill, have severe worsening pain at the site or fevers return to the emergency department for reevaluation HPI General Date/Time Provider Initiated Documentation: 05/27/24 09:37. Limitations to Documentation: no limitations. Information obtained by: patient. History of Present Illness 88 year old F presents to the emergency department with the chief complaint of lower back wound opened up, described as moderate, Patient started experiencing this hour(s) (2) and it has been constant. No relieving factors improve symptom(s), No exacerbating factors reported . Patient notes no other symptoms.. Patient did receive the following treatments prior to arrival, none Related Data Home Medications ?Medication ?Instructions ?Recorded ?Confirmed garlic 1 - 6 ea PO DAILY 01/12/18 05/26/24 albuterol sulfate 90 mcg/actuation 2 puff inhalation Q4H PRN #2 grams 09/16/21 05/26/24 aerosol inhaler (ProAir HFA) aspirin 81 mg tablet,delayed 81 mg PO DAILY 06/18/22 05/26/24 release epinephrine 0.3 mg/0.3 mL 0.3 mg (0.3 mL) IM ONCE PRN 08/25/22 05/26/24 injection, auto-injector anaphylaxis #2 ea ezetimibe 10 mg tablet 10 mg PO DAILY 06/01/23 05/26/24 fluticasone 250 mcg-salmeterol 50 See Rx Instructions .Route 06/03/23 05/26/24 mcg/dose blistr powdr for .COMPLEX #60 blisters inhalation (Advair Diskus) triamcinolone acetonide 0.025 % 1 applic topical BID #80 grams 09/06/23 05/26/24 topical ointment lisinopril 5 mg tablet 5 mg PO DAILY #135 tabs 11/30/23 05/26/24 amlodipine 5 mg tablet 5 mg PO DAILY #90 tabs 02/28/24 05/26/24 honey 100 % topical gel (Manuka 1 applic topical TID PRN wound 02/28/24 05/26/24 Honey) care #15 mL Previous Rx's ?Medication ?Instructions ?Recorded albuterol sulfate 90 mcg/actuation 2 puff inhalation Q4H PRN #2 grams 09/16/21 aerosol inhaler (ProAir HFA) epinephrine 0.3 mg/0.3 mL 0.3 mg (0.3 mL) IM ONCE PRN 08/25/22 injection, auto-injector anaphylaxis #2 ea fluticasone 250 mcg-salmeterol 50 See Rx Instructions .Route 06/03/23 mcg/dose blistr powdr for .COMPLEX #60 blisters inhalation (Advair Diskus) triamcinolone acetonide 0.025 % 1 applic topical BID #80 grams 09/06/23 topical ointment lisinopril 5 mg tablet 5 mg PO DAILY #135 tabs 11/30/23 amlodipine 5 mg tablet 5 mg PO DAILY #90 tabs 02/28/24 honey 100 % topical gel (Manuka 1 applic topical TID PRN wound 02/28/24 Honey) care #15 mL Allergies Allergy/AdvReac Type Severity Reaction Status Date / Time bupivacaine Allergy Severe Anaphylaxis Verified 05/26/24 12:59 methylprednisolone Allergy Severe Anaphylaxis Verified 05/26/24 12:59 neomycin (Neomycin) Allergy Unknown Itching Verified 05/26/24 12:59 Sulfa (Sulfonamide Allergy Unknown Diarrhea Verified 05/26/24 12:59 Antibiotics) doxycycline AdvReac Intermediate rash/hives Verified 05/26/24 12:59 ibuprofen AdvReac Intermediate ASTHMA Verified 05/26/24 12:59 EXACERBATION Nvpqikv-COC-YnP Reductase AdvReac Intermediate myalgias Verified 05/26/24 12:59 Inhibitor (Tnbkkaf-Giu-Yqw Reductase Inhibitor) caffeine AdvReac Mild HOT FLASHES Verified 05/26/24 12:59 gluten AdvReac Mild DIARRHEA Verified 05/26/24 12:59 General Stated Complaint: GenMedical DAMIÁN: 4 Review of Systems All systems reviewed & are unremarkable except as noted in HPI and below Constitutional Constitutional: Denies chills, Denies fever(s) and Denies weakness Cardiovascular Cardiovascular: Denies chest pain and Denies dyspnea Respiratory Respiratory: Denies dyspnea Neurologic Neurologic: Denies weakness Exam Const General: no acute distress Orientation: alert [facility] Head: normal to inspection Ears: external ears normal General nose exam: external nose normal Mouth: moist mucous membranes Eyes General: appearance normal, both eyes and all related structures Neck Neck: normal visual inspection Resp Effort & Inspection: normal respiratory effort and able to speak in complete sentences Cardio Rate: regular rate Back/Spine/Pelvis Back: No erythema and No warmth Skin General skin exam: no rashes or lesions noted Neuro General: patient alert and patient oriented x3 Extrem General: normal to inspection Psych Mental Status: mental status grossly normal Course Vital Signs Vital signs: Vital Signs Pulse 55 L 05/27/24 09:41 Respiratory Rate 18 05/27/24 09:41 Blood Pressure 229/74 H 05/27/24 09:41 Pulse Oximetry 96 05/27/24 09:41 Pulse 55 L 05/27/24 09:41 Respiratory Rate 18 05/27/24 09:41 Blood Pressure 229/74 H 05/27/24 09:41 Blood Pressure Position Sitting 05/27/24 09:41 Pulse Oximetry 96 05/27/24 09:41 Oxygen Delivery Method Room Air 05/27/24 09:41 Oxygen Flow Rate 0 05/27/24 09:41 Medical Decision Making 88-year-old female comes in after a she has a wound on her lower right back that opened up. She had a lesion that was basal cell carcinoma removed earlier this month and then yesterday had the sutures removed. She says during the night she itched the area and this morning realized that the wound had opened up so came here for evaluation. She otherwise feels well, no fevers or pain at site. She has a open 2 cm wound in the right lower back where she says the lesion was removed. There is no erythema or warmth. Discussed that this with the heal by secondary intention at this point, no indication for sutures at this point. Will have nursing place Steri-Strips and place a bandage on it. She is stable for discharge home follow-up with her PCP, return precautions given Differential Diagnosis Differential Diagnosis: Wound dehiscence Quality:SDOH Health Related Social Needs: No Data to Display PFSH All Active Problems (Updated 05/27/24 @ 09:56 by Michael Murphy MD) Dehiscence of wound (Acute) Visit for suture removal (Acute) Basal cell carcinoma (Acute) Changing skin lesion (Acute) Ischial bursitis of right side (Acute) Right hip pain (Acute) Left shoulder pain (Acute) Fatigue (Acute) Nail dystrophy (Acute) Asthma (Chronic) Spinal stenosis of lumbar region (Acute 11/09/16) periphreal neuropathy of both legs. Imbalance CAD (coronary artery disease), three affiliated coronary artery (Acute) CABG x 4 2014 Neuropathy (Acute) Hyperlipidemia (Acute) Prediabetes (Acute) 12/2021,[id number]-2.2% Essential hypertension (Acute) Primary osteoarthritis, left shoulder (Acute) Rotator cuff tear arthropathy of right shoulder (Acute) Hematoma (Acute) Frequent falls (Acute) Pincer nail deformity (Acute) Rhinitis (Acute) Medical History Weight loss Wound of skin Shingles Sore of lower lip Urinary frequency Tremor Hand pain Right rotator cuff tendonitis Depo-Medrol injection: 11/18/2020 Biceps tendinitis of right shoulder Bursitis of right shoulder Subacromial impingement of right shoulder Squamous cell cancer of scalp and skin of neck Hypertrophic toenail Hx of squamous cell carcinoma Skin lesion Metabolic syndrome X Eczema (11/19/14) Sensorineural hearing loss, bilateral (06/06/14) digital [place] STALINE, bilaterally. RITE--312 BATTERY, WAX PRO, Right SN: [id number] SN: [id number] Osteoarthritis Knee pain Essential hypertension (06/18/13) Diverticulosis of colon without diverticulitis Chest pain negative stress echo 07/27 CABG x4 07/29 [facility] Carpal tunnel syndrome on both sides (06/05/14) Surgical History Hx of squamous cell carcinoma excision History of myringotomy History of reduction mammoplasty Status post carpal tunnel release Status post laparoscopic hysterectomy Status post total knee replacement Replacement of total knee joint B/L Open Carpal Tunnel release (~2004) B/L Myringotomy w/ PE (pressure equalizing) tubes Hysterectomy, Laproscopic Reduction mammoplasty Social History Smoking/Tobacco Use Status: Never Smoking risk assessment performed?: Yes Alcohol Intake: current Alcohol Intake frequency: a few times a month Alcohol type: wine Drug use: Never Substance use type: does not use Current gender identity: female Do you feel safe at home: Yes Do you feel safe in your relationship?: Yes
[2024-05-27 10:17] VITALS: BP 229/74; PULSE 55; RESP 16; RESP 18; TEMP 36.6; O2SAT 96
== END 2024-05-27 10:18 | disposition home or self-care (01) ==
PROVIDERS: Emergency Provider Emergency Medicine; PCP Nurse Practitioner Family
DX: T81.31XA Disruption of external operation (surgical) wound, not elsewhere classified, initial encounter (principal)
CPT/HCPCS: 99282

== ENCOUNTER 2024-08-28 15:40 | Outpatient (CLI) | payer MEDICARE, SELFPAY ==
--- NOTE | 2024-08-28 13:45 | DI.RAD_ITS ---
Exam(s) XR CHEST 2V PA LATERAL EXAM: XR CHEST 2V PA LATERAL CLINICAL HISTORY: ?? pneumonia, respi infection, j98.8 TECHNIQUE: 2D digital imaging was performed of the chest. Two images were obtained. PA and lateral views were obtained. COMPARISON: CR,XR XR PORTABLE CHEST AP from 06/03/2022 FINDINGS: MEDIASTINUM: Normal. HEART: Normal. Status post CABG. PULMONARY VASCULATURE: Normal. LUNGS: No focal consolidating infiltrates present. PLEURAL SPACE: No pleural effusion or pneumothorax. BONE:Within normal limits for the patient's age. Degenerative changes are seen particularly in the l eft shoulder. OTHER FINDINGS:Normal. IMPRESSION: No focal consolidating infiltrates. DATA REPOSITORY: RADIATION DOSE DELIVERED:
== END 2024-08-28 16:00 ==
LOC: DI 15:41
PROVIDERS: PCP Nurse Practitioner Family; Visit Provider Family Medicine
DX: J98.8 Other specified respiratory disorders (principal)
CPT/HCPCS: 71046

== ENCOUNTER 2024-08-28 15:49 | Outpatient (CLI) | payer MEDICARE, SELFPAY ==
[2024-08-28 14:58] LABS: HCT 43.2 % (36.0-46.0); HGB 13.8 g/dL (11.2-15.7); MCH 26.5 pg (27.0-33.0); MCHC 31.9 % (32.0-36.0); MCV 83 fL (80-95); MPV 9.9 fL (8.0-11.0); Platelet Count 220 10^3/uL (130-400); RDW 14.8 % (11.7-14.6); RDW-SD 45.4 fL; WBC 7.99 10^3/uL (4.4-10.8)
== END 2024-08-28 15:50 | disposition home or self-care (01) ==
LOC: LBO 15:50
PROVIDERS: PCP Nurse Practitioner Family; Visit Provider Family Medicine
DX: J98.8 Other specified respiratory disorders (principal); Z11.52 Encounter for screening for COVID-19
CPT/HCPCS: 36415; 85027; 71046

== ENCOUNTER 2024-12-24 23:17 | Emergency (ER) | payer MEDICARE, SELFPAY ==
[2024-12-24 23:23] VITALS: BP 216/59; PULSE 60; RESP 16; TEMP 36.4; O2SAT 98
--- NOTE | 2024-12-24 23:28 | W.ED.GENAD ---
Discharge Plan Disposition Patient Disposition: Home Condition: Good Discharge Details Clinical Impression: Embedded tick of axilla Primary Care Provider: Sukh Buitrago ED Provider: Chris Carballo Meds and New Rx's Prescriptions: Continued ezetimibe 10 mg tablet 10 mg PO DAILY lisinopril 5 mg tablet 5 mg PO DAILY MDD 10 mg Qty: 135 3RF Rx Instructions: 1-2 tabs daily as directed albuterol sulfate 90 mcg/actuation HFA aerosol inhaler 2 puff Inhalation Q4H PRN Qty: 8.5 6RF aspirin 81 mg tablet,delayed release (DR/EC) 81 mg PO DAILY amlodipine 5 mg tablet 5 mg PO DAILY Qty: 90 4RF Rx Instructions: per [facility] [place] Manuka Honey 100 % gel 1 applic topical TID PRN (Reason: wound care) Qty: 15 0RF garlic 1 EACH tablet 1 - 6 ea PO DAILY triamcinolone acetonide 0.025 % ointment 1 applic Topical BID PRN (Reason: rash) Qty: 80 1RF Rx Instructions: apply as directed to itchy rash on trunk, arms, legs fluticasone propion-salmeterol [Advair Diskus] 250-50 mcg/dose blister with device See Rx Instructions .ROUTE .COMPLEX Qty: 60 11RF Dose Instruction: INHALE ONE PUFF BY MOUTH TWICE A DAY Rx Instructions: INHALE ONE PUFF BY MOUTH TWICE A DAY epinephrine 0.3 mg/0.3 mL auto-injector 0.3 mg IM ONCE PRN (Reason: anaphylaxis) Qty: 2 0RF Rx Instructions: as a single dose; may repeat once Discharge Instructions Instructions: Insect Bites and Stings ED Additional Instructions: You were seen for an embedded tick in your right axillary area which was removed in its entirety without difficulty. Keep the area clean and dry, apply antibiotic ointment twice a day. Watch for any signs of infection which will include increasing pain, redness, swelling. Follow-up with PCP as needed. Referrals: uSkh Buitrago, SALES HOST [Primary Care Provider] - Discharge Data Discharge Date/Time-TO BE ENTERED AT DEPARTURE: 12/24/24 23:59 HPI General Mode of arrival: ambulatory. Date/Time Provider Initiated Documentation: 12/24/24 23:28. Limitations to Documentation: no limitations. Information obtained by: patient and RN notes reviewed. HPI Narrative: Patient presents to ED with a tick embedded in her right axillary region. Patient did not noticed this the night before. She does nightly tick checks because she is outside a lot. She found this 1 tonight while getting ready for bed. Because of its positioning on her body she was not able to remove it herself. It looked pretty inflamed and she did not want to remain attached overnight so came to the ED for evaluation. Related Data Home Medications ?Medication ?Instructions ?Recorded ?Confirmed garlic 1 - 6 ea PO DAILY 01/12/18 12/24/24 aspirin 81 mg tablet,delayed 81 mg PO DAILY 06/18/22 12/24/24 release epinephrine 0.3 mg/0.3 mL 0.3 mg (0.3 mL) IM ONCE PRN 08/25/22 12/24/24 injection, auto-injector anaphylaxis #2 ea ezetimibe 10 mg tablet 10 mg PO DAILY 06/01/23 12/24/24 lisinopril 5 mg tablet 5 mg PO DAILY #135 tabs 11/30/23 12/24/24 amlodipine 5 mg tablet 5 mg PO DAILY #90 tabs 02/28/24 12/24/24 honey 100 % topical gel (Manuka 1 applic topical TID PRN wound 02/28/24 12/24/24 Honey) care #15 mL triamcinolone acetonide 0.025 % 1 applic topical BID PRN rash #80 08/01/24 12/24/24 topical ointment grams fluticasone 250 mcg-salmeterol 50 See Rx Instructions .Route 08/06/24 12/24/24 mcg/dose blistr powdr for .COMPLEX #60 ea inhalation (Advair Diskus) albuterol sulfate 90 mcg/actuation 2 puff inhalation Q4H PRN #8.5 08/28/24 12/24/24 aerosol inhaler grams Previous Rx's ?Medication ?Instructions ?Recorded epinephrine 0.3 mg/0.3 mL 0.3 mg (0.3 mL) IM ONCE PRN 08/25/22 injection, auto-injector anaphylaxis #2 ea lisinopril 5 mg tablet 5 mg PO DAILY #135 tabs 11/30/23 amlodipine 5 mg tablet 5 mg PO DAILY #90 tabs 02/28/24 honey 100 % topical gel (Manuka 1 applic topical TID PRN wound 02/28/24 Honey) care #15 mL triamcinolone acetonide 0.025 % 1 applic topical BID PRN rash #80 08/01/24 topical ointment grams fluticasone 250 mcg-salmeterol 50 See Rx Instructions .Route 08/06/24 mcg/dose blistr powdr for .COMPLEX #60 ea inhalation (Advair Diskus) albuterol sulfate 90 mcg/actuation 2 puff inhalation Q4H PRN #8.5 08/28/24 aerosol inhaler grams Allergies Allergy/AdvReac Type Severity Reaction Status Date / Time bupivacaine Allergy Severe Anaphylaxis Verified 12/24/24 23:28 methylprednisolone Allergy Severe Anaphylaxis Verified 12/24/24 23:28 neomycin (Neomycin) Allergy Unknown Itching Verified 12/24/24 23:28 Sulfa (Sulfonamide Allergy Unknown Diarrhea Verified 12/24/24 23:28 Antibiotics) doxycycline AdvReac Intermediate rash/hives Verified 12/24/24 23:28 ibuprofen AdvReac Intermediate ASTHMA Verified 12/24/24 23:28 EXACERBATION [id number] Reductase AdvReac Intermediate myalgias Verified 12/24/24 23:28 Inhibitor (Kgtxvbk-Dwg-Cnd Reductase Inhibitor) caffeine AdvReac Mild HOT FLASHES Verified 12/24/24 23:28 gluten AdvReac Mild DIARRHEA Verified 12/24/24 23:28 General Stated Complaint: InsectBite DAMIÁN: 4 Exam Narrative Exam Narrative: Const: Elderly female in NAD. VS per triage. HEENT: NC/AT. Normal facial exam. Neck: Supple. Trachea midline. Lungs: Normal respiratory effort. Neuro: A+O x 3. Normal speech, mentation. Cranial nerves II - XII grossly intact. No gross motor or sensory deficit. Skin: Embedded tick in the right anterior axillary area with surrounding inflammation/erythema.. Course Vital Signs Vital signs: Vital Signs Temperature 97.6 F 12/24/24 23:23 Pulse 60 12/24/24 23:23 Respiratory Rate 16 12/24/24 23:23 Blood Pressure 216/59 H 12/24/24 23:23 Pulse Oximetry 98 12/24/24 23:23 Temperature 97.6 F 12/24/24 23:23 Temperature Source Oral 12/24/24 23:23 Pulse 60 12/24/24 23:23 Respiratory Rate 16 12/24/24 23:23 Blood Pressure 216/59 H 12/24/24 23:23 Blood Pressure Position Supine 12/24/24 23:23 Pulse Oximetry 98 12/24/24 23:23 Oxygen Delivery Method Room Air 12/24/24 23:23 Oxygen Flow Rate 0 12/24/24 23:23 Procedure Foreign Body Removal Date of Procedure: 12/24/24. Time of procedure: 23:30 Provider that performed the procedure: Chris Carballo Patient Consented: Verbally Ultrasound: Not used Location of procedure: Axilla/right side Indication: Redness and Other (embedded tick). Confirmed by: direct visualization. Sterility: Non Sterile. Technique: Other (tick removal device). Irrigation: No. Outcome: Sucessful. Medical Decision Making Patient presenting to ED with a tick embedded in her right anterior axillary region. Some erythema/inflammation in the area of the bite itself. With use of a tick removal device, the tick was removed intact completely. Patient tolerated well. Area was cleaned and antibiotic ointment applied. Patient is allergic to doxycycline and cannot be prophylaxed regardless, but sounds like tick has been present for less than 24 hours and was not engorged. Suspect the erythema around the area is related to the tick being embedded as opposed to infection. Patient to keep the area clean and dry, applying antibiotic ointment twice a day. Follow-up with primary care as needed. Return precautions provided Quality:[facility] Related Social Needs: No Data to Display PFSH All Active Problems Hypertrophic toenail (Acute) Right rotator cuff tendonitis (Acute) Depo-Medrol injection: 11/18/2020 Urinary frequency (Acute) Weight loss (Acute) Changing skin lesion (Acute) Nail dystrophy (Acute) Neuropathy (Acute) Primary osteoarthritis, left shoulder (Acute) Rotator cuff tear arthropathy of right shoulder (Acute) Frequent falls (Acute) Pincer nail deformity (Acute) Rhinitis (Acute) Medical History Asthma Spinal stenosis of lumbar region (11/09/16) periphreal neuropathy of both legs. Imbalance Hyperlipidemia Prediabetes 12/2021,[id number]% CAD (coronary artery disease), [place] coronary artery CABG x 4 2014 Basal cell carcinoma Shingles Tremor Subacromial impingement of right shoulder Squamous cell cancer of scalp and skin of neck Metabolic syndrome X Eczema (11/19/14) Sensorineural hearing loss, bilateral (06/06/14) digital [employer] [place] STALINE, bilaterally. STALINE--312 BATTERY, WAX PRO, Right SN: [id number] SN: [id number] Osteoarthritis Essential hypertension (06/18/13) Diverticulosis of colon without diverticulitis Surgical History Hx of squamous cell carcinoma excision History of myringotomy History of reduction mammoplasty Status post carpal tunnel release bilateral Status post laparoscopic hysterectomy Status post total knee replacement bilateral Social History Smoking/Tobacco Use Status: Never Smoking risk assessment performed?: Yes Alcohol Intake: current Alcohol Intake frequency: a few times a month Alcohol type: wine Drug use: Never Substance use type: does not use Current gender identity: female Do you feel safe at home: Yes Do you feel safe in your relationship?: Yes
== END 2024-12-24 23:59 | disposition home or self-care (01) ==
LOC: ER 12-25 00:06
PROVIDERS: Emergency Provider Emergency Medicine; PCP Nurse Practitioner Family
DX: S40.861A Insect bite (nonvenomous) of right upper arm, initial encounter (principal); W57.XXXA Bitten or stung by nonvenomous insect and other nonvenomous arthropods, initial encounter
CPT/HCPCS: 99283; 99282

== ENCOUNTER 2025-02-11 18:08 | Outpatient (REF) | payer MEDICARE, SELFPAY ==
[2025-02-11 20:56] LABS: Abs Immature Grans 0.02 10^3/uL (0.0-0.06); Absolute Basophil Count 0.02 10^3/uL (0.0-0.2); Absolute Eosinophil Count 0.19 10^3/uL (0.0-0.7); Absolute Monocyte Count 0.39 10^3/uL (0.1-0.8); Absolute Neutrophil Count 4.41 10^3/uL (1.2-6.7); Basophils % 0.3 %; Eosinophils % 2.9 %; HCT 40.9 % (36.0-46.0); HGB 13.1 g/dL (11.2-15.7); Immature Grans % 0.3 %; MCH 26.1 pg (27.0-33.0); MCV 82 fL (80-95); Neutrophils % 67.5 %; Platelet Count 233 10^3/uL (130-400); RBC 5.02 10^6/uL (3.93-5.22); RDW 15.5 % (11.7-14.6); RDW-SD 45.5 fL; WBC 6.53 10^3/uL (4.4-10.8)
[2025-02-11 21:07] LABS: ALT 28 U/L (14-59); AST 21 U/L (15-37); Albumin 3.9 g/dL (3.4-5.0); Alkaline Phosphatase 89 U/L (46-116); Anion Gap 6.8 mmol/L (3-11); BUN 14 mg/dL (7-18); Bilirubin, Total 0.5 mg/dL (0.2-1.0); CO2 30.2 mmol/L (21.0-32.0); CREATININE 0.7 mg/dL (0.55-1.02); Calcium 9.4 mg/dL (8.5-10.1); Calculated LDL 95 mg/dL (<100); Chloride 105 mmol/L (98-107); Cholesterol 175 mg/dL (<200); Estimated GFR 83.65 (mL/min/1.73m2); Glucose 104 mg/dL (74-106); HDL Cholesterol 56 mg/dL (>or=50); Potassium 4.1 mmol/L (3.5-5.1); Sodium 142 mmol/L (136-145); Total Protein 6.4 g/dL (6.4-8.2); Triglyceride 121 mg/dL (<150)
[2025-02-11 21:20] LABS: Hemoglobin A1C 5.9 % (<5.7)
== END 2025-02-11 18:09 | disposition home or self-care (01) ==
LOC: LBN 18:08
PROVIDERS: PCP Nurse Practitioner Family; Visit Provider Nurse Practitioner Family
DX: E78.5 Hyperlipidemia, unspecified (principal); L98.9 Disorder of the skin and subcutaneous tissue, unspecified; R73.03 Prediabetes; T14.8XXA Other injury of unspecified body region, initial encounter
CPT/HCPCS: 80053; 80061; 87077; 83036; 85025; 87070; 87186; 87205

== ENCOUNTER 2025-02-28 20:56 | Outpatient (REF) | payer MEDICARE, SELFPAY ==
[2025-02-28 20:30] LABS: Glucose Negative (Negative)
== END 2025-02-28 20:57 | disposition home or self-care (01) ==
LOC: LBN 20:56
PROVIDERS: PCP Nurse Practitioner Family; Visit Provider Nurse Practitioner Family
DX: R30.0 Dysuria (principal)
CPT/HCPCS: 81003